=== PATIENT | male | born 1990 | race Caucasian/White ===

== ENCOUNTER 2020-10-01 18:51 | Emergency (ER) | payer OTHER, SELFPAY ==
[2020-10-01 19:01] VITALS: BP 158/110; RESP 14; TEMP 36.8; O2SAT 98; BMI 27.6
--- NOTE | 2020-10-01 19:32 | ECG_ITS ---
Test Reason : CHEST PAIN Blood Pressure : / mmHG Vent. Rate : 089 BPM Atrial Rate : 089 BPM P-R Int : 156 ms QRS Dur : 092 ms QT Int : 358 ms P-R-T Axes : 030 050 033 degrees QTc Int : 435 ms Normal sinus rhythm Normal ECG No previous ECGs available Referred By: Generic ED Physician Electronically Signed By:CHAO RUIZ MD
[2020-10-01 19:41] VITALS: BP 137/92; PULSE 93; RESP 18
[2020-10-01 19:48] LABS: MANUAL DIFF FLAG NO
--- NOTE | 2020-10-01 19:48 | PC.NURSE ---
[facility] DOES NOT WANT TO STAY AND TAKE UP A BED FROM SOMEONE WHO REALLY NEEDS IT . EXPLAINED TO PATIENT THAT HE WARRANTS A BED GIVEN THE EXPOSURE AND CONTINUED BREATHING ISSUES WITH CHEST PAIN. I DON'T WANT TO GET THESE GUYS IN TROUBLE THEY ARE FAMILY . EXPLAINED HIS HEALTH IS MORE IMPORTANT. IV REMOVED PRIOR TO LEAVING. WALKED OUT OF ER WITH STEADY GAIT. ORIENTED X3. BREATHING EVEN, NON-LABROED. SKIN PINK, WARM, DRY.
[2020-10-01 19:51] LABS: Basophils Absolute Auto 0.1 X10*3/uL (0.0-0.2); Basophils Percent Auto 1.3 % (0-2); Eosinophils Absolute Auto 0.2 X10*3/uL (0.0-0.4); Eosinophils Percent Auto 2.4 % (0-4); Hematocrit 42.7 % (42-52); Hemoglobin 14.6 g/dl (14.0-18.0); Imm Gran Abs Auto 0.05 X10*3/uL (0.00-0.03); Imm Gran Pct Auto 0.7 % (0.0-0.4); Lymphocytes Absolute Auto 1.8 X10*3/uL (1.2-4.9); Lymphocytes Percent Auto 27.3 % (20-40); Mean Corpuscular HGB Conc 34.2 g/dl (31.0-36.0); Mean Corpuscular Hemoglobin 31.4 pg (27.0-33.0); Mean Corpuscular Volume 91.8 fL (80-98); Mean Platelet Volume 8.5 fL (9.4-12.4); Monocytes Absolute Auto 0.3 X10*3/uL (0.1-1.2); Monocytes Percent Auto 4.3 % (2-11); Neutrophils Absolute Auto 4.3 X10*3/uL (2.0-8.3); Platelet Count 435 X10*3/uL (160-400); Red Blood Count 4.65 X10*6/uL (4.60-5.80); Red Cell Distribution Width 12.4 % (11.0-16.0); White Blood Count 6.7 X10*3/uL (4.8-10.8)
[2020-10-01 20:08] LABS: Anion Gap 15 (12-20); Blood Urea Nitrogen 6 mg/dL (9-16); Calcium 9.4 mg/dL (8.4-10.2); Carbon Dioxide 26 mmol/L (22-29); Chloride 108 mmol/L (96-108); Creatinine Clr Calc Pharmacy 145.8; Estimated Glomerular Filt Rate > 60; Glucose Random 97 mg/dL (60-115); Potassium 4.3 mmol/L (3.3-5.1); Sodium 145 mmol/L (135-145)
[2020-10-01 20:15] LABS: Troponin-I High Sensitivity < 3.5 ng/L (<3.5-35.0)
== END 2020-10-01 19:53 | disposition left against medical advice (07) ==
PROVIDERS: Emergency Provider Emergency Medicine
DX: R07.9 Chest pain, unspecified (principal); T65.891A Toxic effect of other specified substances, accidental (unintentional), initial encounter; Y93.9 Activity, unspecified; Y92.69 Other specified industrial and construction area as the place of occurrence of the external cause; Y99.0 Civilian activity done for income or pay
CPT/HCPCS: 36415; 80048; 84484; 85025; 93005; 99283

== ENCOUNTER 2020-12-23 21:15 | Emergency (ER) | payer OTHER, SELFPAY ==
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
[2020-12-23 21:20] VITALS: BP 134/80; BP 136/84; PULSE 80; PULSE 84; RESP 16; TEMP 37; O2SAT 98; BMI 28.1
--- NOTE | 2020-12-23 22:24 | PC.NURSE ---
pt awake and alert, on phone with c-collar on bed. pt removed his own c-collar because it was bothering him. pt moving all extremities and lifting head off bed. pt educated on the importance of remaining still and leaving collar in place until a fracture is ruled out. pt allowed this rn to place collar back on neck. rosalinda de dios.
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
== END 2020-12-23 23:49 | disposition home or self-care (01) ==
PROVIDERS: Emergency Provider Student in an Organized Health Care Education/Training Program
DX: S99.912A Unspecified injury of left ankle, initial encounter (principal); M25.572 Pain in left ankle and joints of left foot; X58.XXXA Exposure to other specified factors, initial encounter; Y93.55 Activity, bike riding; Y92.410 Unspecified street and highway as the place of occurrence of the external cause; Y99.8 Other external cause status; Z79.899 Other long term (current) drug therapy
CPT/HCPCS: 73610; 99283

== ENCOUNTER 2021-01-15 16:01 | Outpatient (REF) | payer OTHER, SELFPAY ==
[2021-01-15 17:49] LABS: MANUAL DIFF FLAG NO
[2021-01-15 18:06] LABS: Basophils Absolute Auto 0.1 X10*3/uL (0.0-0.2); Basophils Percent Auto 0.9 % (0-2); Eosinophils Absolute Auto 0.3 X10*3/uL (0.0-0.4); Eosinophils Percent Auto 4.1 % (0-4); Hematocrit 43.3 % (42-52); Hemoglobin 14.5 g/dl (14.0-18.0); Imm Gran Abs Auto 0.01 X10*3/uL (0.00-0.03); Imm Gran Pct Auto 0.1 % (0.0-0.4); Lymphocytes Absolute Auto 2.3 X10*3/uL (1.2-4.9); Lymphocytes Percent Auto 34.1 % (20-40); Mean Corpuscular HGB Conc 33.5 g/dl (31.0-36.0); Mean Corpuscular Hemoglobin 31.5 pg (27.0-33.0); Mean Corpuscular Volume 94.1 fL (80-98); Mean Platelet Volume 9.2 fL (9.4-12.4); Monocytes Percent Auto 14.1 % (2-11); Neutrophils Absolute Auto 3.2 X10*3/uL (2.0-8.3); Neutrophils Percent Auto 46.7 % (45-73); Platelet Count 418 X10*3/uL (160-400); Red Cell Distribution Width 14.5 % (11.0-16.0); White Blood Count 6.8 X10*3/uL (4.8-10.8)
[2021-01-15 18:16] LABS: Alanine Aminotransferase 78 U/L (0-40); Albumin Level 4.5 g/dL (3.5-5.0); Alkaline Phosphatase 67 U/L (39-117); Anion Gap 17 (12-20); Aspartate Amino Transferase 90 U/L (5-37); Bilirubin Total 0.3 mg/dL (0.0-1.0); Blood Urea Nitrogen 3 mg/dL (9-16); Calcium 9.1 mg/dL (8.4-10.2); Carbon Dioxide 22 mmol/L (22-29); Chloride 107 mmol/L (96-108); Estimated Glomerular Filt Rate > 60; Glucose Random 106 mg/dL (60-115); Lipase 33 U/L (8-78); Sodium 142 mmol/L (135-145); Total Protein 7.6 g/dL (6.5-8.0)
== END 2021-01-15 16:02 | disposition home or self-care (01) ==
LOC: HO.LAB 16:01
PROVIDERS: Visit Provider Physician Assistant Medical
DX: K21.00 Gastro-esophageal reflux disease with esophagitis, without bleeding (principal); K59.1 Functional diarrhea
CPT/HCPCS: 36415; 80053; 83690; 85025

== ENCOUNTER 2021-01-16 11:58 | Outpatient (REF) | payer OTHER, SELFPAY ==
[2021-01-16 14:47] LABS: CDIFF Ag Negative (Negative); CDIFF Internal ctrl Dots and bkg OK (V); CDiff Toxin Negative (Negative)
[2021-01-23 22:56] LABS: Calprotectin, Fecal 21 mcg/g
== END 2021-01-16 11:59 | disposition home or self-care (01) ==
LOC: HO.LNP 11:58
PROVIDERS: Visit Provider Nurse Practitioner Family
DX: K21.00 Gastro-esophageal reflux disease with esophagitis, without bleeding (principal); K59.1 Functional diarrhea
CPT/HCPCS: 83993; 87045; 87046; 87177; 87209; 87324; 87329; 87449

== ENCOUNTER 2021-10-30 07:55 | Emergency (ER) | payer OTHER, SELFPAY ==
[2021-10-30 07:59] VITALS: BP 158/110; PULSE 116; RESP 19; TEMP 36.6; O2SAT 97; BMI 29.9
--- NOTE | 2021-10-30 08:10 | ED.GENADULT ---
HPI - General Adult General Chief complaint: General Medical Stated complaint: Dehydrated/flank pain Time Seen by Provider: 10/30/21 08:07 Source: patient Mode of arrival: ambulatory Limitations: no limitations Related Data Previous Rx's Medication Instructions Recorded naproxen 500 mg tablet 500 mg PO BID PRN #15 tab 12/23/20 Allergies Allergy/AdvReac Type Severity Reaction Status Date / Time No Known Allergies Allergy Verified 12/23/20 22:33 [facility] Past Medical History Medical History No known health problems Physical Exam ED Vital Signs: Vital Signs - 24 hr 10/30/21 07:59 Temperature 98 F Pulse Rate 116 H Respiratory Rate 19 Blood Pressure 158/110 H Pulse Oximetry 97 BMI result Body Mass Index 29.9 Discharge Plan Discharge Prescriptions: No Action naproxen 500 mg tablet 500 mg PO BID PRN (Reason: pain) Qty: 15 0RF
[2021-10-30] MEDS: ondansetron HCL 4 MG/2 ML VIAL IVPUSH (08:24)
[2021-10-30] MEDS: LORazepam 2 MG/ML VIAL 1 MG IVPUSH (08:25)
[2021-10-30] MEDS: 0.9 % Sodium Chloride 1,000 ML 999 ML IVCONT ×2 (08:25→09:35)
[2021-10-30 08:29] VITALS: BP 144/92; PULSE 103; RESP 20
--- NOTE | 2021-10-30 08:30 | ED_ITS ---
HPI - General Adult General Chief complaint: General Medical Stated complaint: Dehydrated/flank pain Time Seen by Provider: 10/30/21 08:07 Source: patient Mode of arrival: ambulatory Limitations: no limitations History of Present Illness HPI narrative: This is a 30 years old patient with history of alcohol abuse presented to the emergency room complaining of vomiting tremors since 3 weeks worse this morning denies any fever chills diarrhea Onset (ago): hour(s) Radiation: non-radiation Severity: moderate Pain Consistency: constant Relieving factors: none Associated symptoms: denies other symptoms Related Data Previous Rx's Medication Instructions Recorded naproxen 500 mg tablet 500 mg PO BID PRN #15 tab 12/23/20 lorazepam 1 mg tablet 1 mg PO BID PRN #10 tab 10/30/21 ondansetron 4 mg disintegrating 4 mg PO Q8H 4 Days #12 tab 10/30/21 tablet potassium chloride 20 mEq 20 meq PO DAILY #7 tab 10/30/21 tablet,extended release(part/cryst) Allergies Allergy/AdvReac Type Severity Reaction Status Date / Time No Known Allergies Allergy Verified 12/23/20 22:33 Review of Systems Constitutional: Constitutional: Reports no additional constitutional complai nts ENT: Reports system reviewed and no additional complaints, except as documented Cardiovascular: Cardiovascular: Reports no additional cardiovascular complaints Respiratory: Respiratory: Reports no additional respiratory complaints, Denies cough and Denies hemoptysis Gastrointestinal: Gastrointestinal: Denies diarrhea PMFSH Past Medical History Medical History No known health problems Social History Social History Alcohol intake: current Alcohol intake frequency: 3 or more drinks per day Alcohol type: hard liquor Patient Tobacco Use Status: Current someday Tobacco user Use of substances other than those prescribed or required for medical reasons: No Advance Directives: No Advance Directives Information Provided: No Physical Exam ED Vital Signs: Vital Signs - 24 hr 10/30/21 07:59 10/30/21 08:29 10/30/21 11:24 Temperature 98 F Pulse Rate 116 H 103 H 81 Respiratory Rate 19 20 18 Blood Pressure 158/110 H 144/92 H 137/87 Pulse Oximetry 97 98 BMI result Body Mass Index 29.9 Const General: cooperative, alert, awake and anxious Nutritional Appearance: average body habitus Orientation/consciousness: patient oriented x3 Limitations: no limitations HENMT Head: Yes normal to inspection General nose exam: Normal external nose present Mouth: Normal oral and palatal mucosa present Neck Neck: Yes normal visual inspection and Yes full ROM Chest Chest palpation & inspection: normal inspection of the chest Resp Effort & Inspection: normal respiratory effort Auscultation: clear to auscultation bilaterally Cardio Jugular venous distension: no JVD Rate: regular rate Rhythm: regular rhythm GI Inspection: Yes normal to inspection Palpation (GI): Soft to palpation, not firm, nontender and no guarding Percussion: Yes normal to percussion General: Yes no CVA tenderness Back/Spine/Pelvis Back: no CVA tenderness Neuro General: patient oriented x3 and gait normal Course Reevaluation(s) Reevaluation #1: I re-evaluated the patient at 10:42 am he is doing much better, he is tolerating p.o. fluids well, he was seen by the care team Alonso he does want to go to detox today he states that he will go on otherwise he isaias loose his job. Alonso reccommended that I prescribed few days of ativan to hold him until , I will give him a 10 tablets of lorazepam to be taken b.i.d. p.r.n. Medical Decision Making Lab Data Result diagrams: 10/30/21 08:30 10/30/21 08:30 Labs: Lab Results 10/30/21 10/30/21 10/30/21 Range/Units 08:30 08:30 08:30 WBC 7.0 (4.8-10.8) X10*3/uL RBC 5.02 (4.60-5.80) X10*6/uL Hgb 16.7 (14.0-18.0) g/dl Hct 45.9 (42.0-52.0) % MCV 91.4 (80.0-98.0) fL MCH 33.3 H (27.0-33.0) pg MCHC 36.4 H (31.0-36.0) g/dl RDW 12.6 (11.0-16.0) % Plt Count 359 (160-400) X10*3/uL MPV 8.9 L (9.4-12.4) fL Immature Gran % (Auto) 0.1 (0.0-0.4) % Neut % (Auto) 60.3 (45-73) % Lymph % (Auto) 26.3 (20-40) % Sweet [place] % (Auto) 11.6 H (2-11) % Eos % (Auto) 0.7 (0-4) % Baso % (Auto) 1.0 (0-2) % Lymph # (Auto) 1.8 (1.2-4.9) X10*3/uL Sweet [place] # (Auto) 0.8 (0.1-1.2) X10*3/uL Eos # (Auto) 0.1 (0.0-0.4) X10*3/uL Baso # (Auto) 0.1 (0.0-0.2) X10*3/uL Abs Immat Gran (auto) 0.01 (0.00-0.03) X10*3/uL Absolute Neuts (auto) 4.2 (2.0-8.3) x10*3/uL Absolute Nucleated RBC 0.000 (0.0-0.012) X10*3/uL Nucleated RBC % (auto) 0.0 (0.0-0.2) /100WBC Sodium 137 (135-145) mmol/L Potassium 3.0 L D (3.3-5.1) mmol/L Chloride 90 L (96-108) mmol/L Carbon Dioxide 27 (22-29) mmol/L Anion Gap 23 H (12-20) BUN 3 L (9-16) mg/dL Creatinine 0.98 (0.5-1.4) mg/dL Estim Creat Clear Calc 124.6 Estimated GFR > 60 Random Glucose 115 (60-115) mg/dL Calcium 11.3 H D (8.4-10.2) mg/dL Magnesium 1.6 (1.6-2.6) mg/dL Total Bilirubin 1.4 H (0.0-1.0) mg/dL AST 357 H (5-37) U/L ALT 167 H (0-40) U/L Alkaline Phosphatase 99 D (39-117) U/L Total Protein 8.1 H (6.5-8.0) g/dL Albumin 4.1 (3.5-5.0) g/dL Ethyl Alcohol 10 mg/dL Discharge Plan Discharge Clinical Impression: Alcohol abuse, Alcohol withdrawal, Hypokalemia Patient Disposition: Home, Self-Care Instructions: Hypokalemia (ED), Alcohol Withdrawal (DC), Alcohol Use Disorder (ED) Additional Instructions: You declined today the detox, you states that you were going to go on , result return if worse Prescriptions: New lorazepam 1 mg tablet 1 mg PO BID PRN (Reason: alcohol withdrawal) Qty: 10 0RF ondansetron 4 mg tablet,disintegrating 4 mg PO Q8H 4 Days Qty: 12 0RF potassium chloride 20 mEq tablet,ER particles/crystals 20 meq PO DAILY Qty: 7 0RF No Action naproxen 500 mg tablet 500 mg PO BID PRN (Reason: pain) Qty: 15 0RF Referrals: Physician,None [Primary Care Provider] - 3 days Interventions: ED Discharge Assessment Last Done: 10/30/21 11:45 Discharge Date/Time: 10/30/21 11:45
[2021-10-30 08:34] LABS: MANUAL DIFF FLAG NO
[2021-10-30 08:35] LABS: Basophils Absolute Auto 0.1 X10*3/uL (0.0-0.2); Eosinophils Absolute Auto 0.1 X10*3/uL (0.0-0.4); Eosinophils Percent Auto 0.7 % (0-4); Hematocrit 45.9 % (42.0-52.0); Hemoglobin 16.7 g/dl (14.0-18.0); Imm Gran Abs Auto 0.01 X10*3/uL (0.00-0.03); Imm Gran Pct Auto 0.1 % (0.0-0.4); Lymphocytes Absolute Auto 1.8 X10*3/uL (1.2-4.9); Lymphocytes Percent Auto 26.3 % (20-40); Mean Corpuscular HGB Conc 36.4 g/dl (31.0-36.0); Mean Corpuscular Hemoglobin 33.3 pg (27.0-33.0); Mean Corpuscular Volume 91.4 fL (80.0-98.0); Mean Platelet Volume 8.9 fL (9.4-12.4); Monocytes Absolute Auto 0.8 X10*3/uL (0.1-1.2); Monocytes Percent Auto 11.6 % (2-11); Neutrophils Absolute Auto 4.2 x10*3/uL (2.0-8.3); Neutrophils Percent Auto 60.3 % (45-73); Platelet Count 359 X10*3/uL (160-400); Red Blood Count 5.02 X10*6/uL (4.60-5.80); Red Cell Distribution Width 12.6 % (11.0-16.0)
[2021-10-30 08:48] LABS: Ethanol 10 mg/dL
[2021-10-30 08:52] LABS: Alanine Aminotransferase 167 U/L (0-40); Albumin Level 4.1 g/dL (3.5-5.0); Alkaline Phosphatase 99 U/L (39-117); Anion Gap 23 (12-20); Aspartate Amino Transferase 357 U/L (5-37); Bilirubin Total 1.4 mg/dL (0.0-1.0); Blood Urea Nitrogen 3 mg/dL (9-16); Calcium 11.3 mg/dL (8.4-10.2); Carbon Dioxide 27 mmol/L (22-29); Chloride 90 mmol/L (96-108); Creatinine Clr Calc Pharmacy 124.6; Estimated Glomerular Filt Rate > 60; Glucose Random 115 mg/dL (60-115); Magnesium 1.6 mg/dL (1.6-2.6); Sodium 137 mmol/L (135-145); Total Protein 8.1 g/dL (6.5-8.0)
[2021-10-30] MEDS: Potassium Chloride Packet 20 MEQ PACKET 40 MEQ PO (09:36)
--- NOTE | 2021-10-30 10:29 | MHC.RECOVSUP ---
Recovery Support note: Patient is a 30 year old Norwegian speaking male who [place] [facility] [place] due to alcohol use and withdrawal. This quality analyst/technical writer met with patient to discuss recovery supports and treatment options. Patient reports he went to [facility] 4 months ago and found it helpful to his recovery. Patient reports when he discharged, he was still homeless and that he started drinking again. Patient reports he lives in a tent in the [facility] and that he cannot sleep well. Patient reports using alcohol to help him sleep. Patient states I'm sick of living like this. Patient reports a desire to maintain sobriety. Patient reports he has an appointment with Misty Jasmine to get a Vivitrol injection. Discussed medications for alcohol use disorder with patient and provided education. Discussed withdrawal with patient. This quality analyst/technical writer offered to secure an ATS bed for patient and patient declined, stating that he needs to talk to his and his boss before going to treatment. Patient accepted information on ATS facilities. Informed patient that alcohol withdrawal is very serious and that it could lead to seizure or if untreated. Reiterated that the recommendation is for him to go to an ATS facility. Discussed IOP with patient and provided information on this level of care. Discussed case with ED provider. This quality analyst/technical writer available in the event that patient changes his mind and would like to go to an ATS facility.
[2021-10-30 11:24] VITALS: BP 137/87; PULSE 81; RESP 18; O2SAT 98
[2021-10-30] MEDS: LORazepam 1 MG TABLET PO (11:37)
== END 2021-10-30 11:45 | disposition home or self-care (01) ==
PROVIDERS: Emergency Provider Emergency Medicine
DX: F10.130 Alcohol abuse with withdrawal, uncomplicated (principal); Y90.0 Blood alcohol level of less than 20 mg/100 ml; E87.6 Hypokalemia; F17.200 Nicotine dependence, unspecified, uncomplicated
CPT/HCPCS: 36415; 80053; 82077; 83735; 85025; 96361; 96374; 96375; 99284; J2060; J2405

== ENCOUNTER 2022-04-24 07:02 | Emergency (ER) | payer OTHER, SELFPAY ==
--- NOTE | ~2022-04-24 | US_ITS ---
EXAMINATION: US ABDOMEN LIMITED CLINICAL INFORMATION: Rule out cholecystitis due to upper abdominal pain. COMPARISON: CT earlier the same day TECHNIQUE: Real-time imaging of the gallbladder. FINDINGS: GALLBLADDER: Normal. The gallbladder is physiologically distended without evidence of stones, sludge, polyps, wall thickening or pericholecystic fluid. COMMON BILE DUCT: Normal in caliber measuring 0.3 cm in diameter. US/US abdomen limited IMPRESSION: Normal gallbladder. No gallstones.
--- NOTE | ~2022-04-24 | CT_ITS ---
EXAMINATION: CT ABDOMEN AND PELVIS WITH CONTRAST CLINICAL INFORMATION: Nausea, vomiting, diarrhea. Right upper quadrant, right lower quadrant abdominal pain. Recent alcohol. COMPARISON: None TECHNIQUE: Multidetector volumetric images were obtained from the superior aspect of the liver through the pubic symphysis following administration 85 mL of Omnipaque 350 intravenous contrast. Sagittal and coronal reformatted images were obtained on the technologist's workstation. Oral contrast: No This CT examination was performed using dose optimization techniques as appropriate, variously including the following: *Automated exposure control *Adjustment of mA and/or kV according to patient size (this includes techniques or standardized protocols for targeted exams where dose is matched to indication/reason for exam; i.e. extremities or head) *Use of iterative reconstruction technique DLP: 456 mGy-cm FINDINGS: LUNG BASES: The visualized lung bases are unremarkable. LIVER, GALLBLADDER, AND BILIARY TREE: No focal liver lesion. No intrahepatic or extrahepatic biliary duct dilatation. Faint densities in the gallbladder neck, could represent gallstones. No obvious pericholecystic inflammatory changes seen. PANCREAS: Unremarkable. No acute inflammatory changes seen. SPLEEN: Unremarkable. Small splenule. ADRENAL GLANDS: Unremarkable. KIDNEYS AND URETERS: Subcentimeter right renal lesions, too small to characterize. No renal calculi. No ureteral calculi. No hydronephrosis. No significant perinephric stranding. BLADDER: Underdistended, grossly unremarkable. GASTROINTESTINAL TRACT: Stomach is partially distended. No dilated small bowel loops. Small volume stool in the large colon. The large colon appears unremarkable without evidence of inflammatory changes. Normal appendix. No free fluid. No free air.. ABDOMINAL WALL: No significant hernia is appreciated. LYMPH NODES: No adenopathy seen. VASCULAR: Normal caliber aorta. Main portal vein is enhancing. PELVIC VISCERA: Unremarkable. OSSEOUS STRUCTURES: No acute or suspicious osseous abnormality. CT/CT abdomen pelvis w IV con IMPRESSION: -Question small gallstones. No obvious pericholecystic inflammatory changes seen. Further evaluation ultrasound as clinically warranted. -No acute findings otherwise identified in the abdomen or pelvis. Fleischner guidelines were followed.
[2022-04-24 07:37] VITALS: BP 141/93; PULSE 100; RESP 22; TEMP 36.8; O2SAT 99; BMI 25.8
[2022-04-24] MEDS: Ondansetron ODT 4 MG TAB.RAPDIS TRANSLINGU (07:44)
--- NOTE | 2022-04-24 09:09 | ECG_ITS ---
Test Reason : PALPITATIONS Blood Pressure : / mmHG Vent. Rate : 080 BPM Atrial Rate : 080 BPM P-R Int : 148 ms QRS Dur : 082 ms QT Int : 376 ms P-R-T Axes : 079 069 062 degrees QTc Int : 433 ms Normal sinus rhythm with sinus arrhythmia Normal ECG When compared with ECG of 01-OCT-2020 19:05, No significant change was found Referred By: Francesca Pacheco Electronically Signed By:EMILY MARCUS
[2022-04-24 09:15] LABS: MANUAL DIFF FLAG NO
[2022-04-24 09:16] VITALS: BP 129/83; PULSE 76; RESP 14; O2SAT 98
[2022-04-24 09:16] LABS: Basophils Absolute Auto 0.1 X10*3/uL (0.0-0.2); Basophils Percent Auto 0.7 % (0-2); Eosinophils Percent Auto 0.2 % (0-4); Hematocrit 46.7 % (42.0-52.0); Hemoglobin 16.2 g/dl (14.0-18.0); Imm Gran Abs Auto 0.03 X10*3/uL (0.00-0.03); Imm Gran Pct Auto 0.3 % (0.0-0.4); Lymphocytes Absolute Auto 1.8 X10*3/uL (1.2-4.9); Lymphocytes Percent Auto 16.9 % (20-40); Mean Corpuscular HGB Conc 34.7 g/dl (31.0-36.0); Mean Corpuscular Hemoglobin 29.9 pg (27.0-33.0); Mean Corpuscular Volume 86.2 fL (80.0-98.0); Mean Platelet Volume 8.6 fL (9.4-12.4); Monocytes Absolute Auto 0.8 X10*3/uL (0.1-1.2); Monocytes Percent Auto 7.7 % (2-11); Neutrophils Absolute Auto 8.1 x10*3/uL (2.0-8.3); Neutrophils Percent Auto 74.2 % (45-73); Platelet Count 544 X10*3/uL (160-400); Red Blood Count 5.42 X10*6/uL (4.60-5.80); Red Cell Distribution Width 13.3 % (11.0-16.0); White Blood Count 10.9 X10*3/uL (4.8-10.8)
[2022-04-24] MEDS: 0.9 % Sodium Chloride 1,000 ML 999 ML IVCONT (09:31)
[2022-04-24] MEDS: LORazepam 1 MG TABLET 2 MG PO (09:31)
--- NOTE | 2022-04-24 09:31 | ED.ALCOHOL ---
HPI - Alcohol General Chief Complaint: ETOH/Substance Use Stated Complaint: haven't eat or drink in x5 days. heavy chest Time Seen by Provider: 04/24/22 09:03 Source: patient Mode of arrival: ambulatory Limitations: no limitations History of Present Illness HPI narrative: 31-year-old male with history of alcohol abuse presenting with complaints of nausea, vomiting, abdominal pain, chest ?burning after bingeing alcohol for the past 6 days. Patient reports he has been sober since October however relapsed 6 days ago. States he has been under lot of stress with work and home life, and states that is partly why started drinking again. Reports drinking at least 16 tall beers per day, and blacking out every day. States he does not remember eating anything x 6 days. Also reports one instance where he he woke up in the [place], and does not know how he got there. Denies any injuries that he knows of. States his last drink was around 20:00 last night, and he is have muscle cramping, nausea, vomiting, chest heaviness/burning, and occasional shortness of breath since. Reports small amount of blood in his vomit this morning, stating he thinks he strained something from vomiting so hard. Denies any suicidal or homicidal ideations. Reports occasional marijuana use, no other drug use. Patient states ?I didn't know what else to do, I didn't want to go back to the [employer] store . complaint: alcohol dependence Last drink: Hours (ago) Chronic alcohol use: Yes Previous visits for alcohol intoxication: Yes Recent trauma: No Associated symptoms: nausea, vomiting, tremors and abdominal pain Treatments prior to arrival: none Related Data Previous Rx's Medication Instructions Recorded naproxen 500 mg tablet 500 mg PO BID PRN pain #15 tabs 12/23/20 lorazepam 1 mg tablet 1 mg PO BID PRN alcohol withdrawal 10/30/21 #10 tabs ondansetron 4 mg disintegrating 4 mg PO Q8H 4 days #12 tabs 10/30/21 tablet potassium chloride 20 mEq 20 meq PO DAILY #7 tabs 10/30/21 tablet,extended release(part/cryst) lorazepam 0.5 mg tablet (Ativan) 0.5 mg PO TID PRN alcohol 04/24/22 withdrawal #10 tabs ondansetron 4 mg disintegrating 4 mg PO Q8H PRN nausea #14 tabs 04/24/22 tablet Allergies Allergy/AdvReac Type Severity Reaction Status Date / Time No Known Allergies Allergy Verified 12/23/20 22:33 Review of Systems Review of Systems: Constitutional : No Weight loss, No Fever, No Chills, No Night Sweats ENT/Mouth : No Hearing loss, No Ear Pain, No Nasal Congestion, No Sinus Pain, No Hoarseness, No sore throat, No Rhinorrhea, No Swallowing Difficulty Eyes: No Eye Pain, No Swelling, No Redness, No Foreign Body, No Discharge, No Vision Changes Cardiovascular : + Chest Pain, + SOB, No Dyspnea on Exertion, No Orthopnea, No Edema, No Palpitations Respiratory : No Cough, No Sputum, No Wheezing, No Smoke Exposure, No Dyspnea Gastrointestinal : + Nausea, + Vomiting, + Diarrhea, No Constipation, + abdominal Pain, + hematemesis, No Hematochezia, No Melena Genitourinary : no irregular bleeding, No Dysuria, No Urinary Frequency, No Hematuria, No Urinary Incontinence, No Urgency, No Flank Pain, No Urinary Flow Changes, No Hesitancy Musculoskeletal : + muscle cramps, No joint pain, No Joint Swelling Skin : No Skin Lesions, No rash Neuro : No Weakness, No Numbness, No Paresthesias, No Loss of Consciousness, + Dizziness, + Headache Psych : + Anxiety/Panic, No Depression, No SI/HI/AH/VH, No Social Issues, Heme/Lymph: No Bruising, No Bleeding,No Lymphadenopathy Endocrine : No Polyuria, No Polydipsia, No Temperature Intolerance Yes all other systems are reviewed and are negative [facility] Past Medical History Attestation statement: The following information was validated with the patient. Source: old records reviewed and nursing notes reviewed Medical History No known health problems Social History Social History Alcohol intake: current Alcohol intake frequency: 3 or more drinks per day Alcohol type: hard liquor Patient Tobacco Use Status: Current someday Tobacco user Advance Directives: No Advance Directives Information Provided: No Physical Exam ED Vital Signs: Vital Signs - 24 hr 04/24/22 07:37 04/24/22 09:16 04/24/22 12:11 Temperature 98.3 F Pulse Rate 100 76 109 H Respiratory Rate 22 H 14 18 Blood Pressure 141/93 H 129/83 123/82 Pulse Oximetry 99 98 100 Oxygen Delivery Method Room Air Room Air Room Air BMI result Body Mass Index 25.8 Vital signs reviewed blood pressure 141/93. Pulse 100. Respirations 22. Temperature 98.3 degrees. Oxygen saturation 99% on room air. Appearance: Alert. Oriented X3. No acute distress. Head: Normal external exam. Normocephalic. Eyes: PERRLA. EOMI. Conjunctiva and sclera normal. Eyelids normal. ENT: Pharynx normal. Uvula midline. Moist mucous membranes. No trismus noted. No drooling noted. No muffled voice noted. Neck: Normal inspection. Neck supple. FROM. No adenopathy. No meningeal signs. CVS: Tachycardic, rhythm. Heart sound normal. No murmurs noted. Pulses normal throughout. Respiratory: No respiratory distress. Painless inspiration. Breath sounds normal. No wheezes/rales/rhonchi noted. Chest nontender. No accessory muscle usage noted or decreased air movement noted. Abdomen: Soft and nondistended. Tender to palpation in RUQ and RLQ with guarding. No rigidity. Bowel sounds normal in all 4 quadrants. No distention noted. No organomegaly noted. No visible injury noted. No rebound tenderness. Negative Rovsing sign. Negative obturator's sign. Negative psoas sign. Negative Smyth sign. Back: No CVA tenderness. Full range of motion noted. Skin: Skin warm and dry. Normal skin color. Normal skin turgor. No rashes/lesions/lacerations noted. Extremities: Tremulous, Extremities exhibit normal range of motion. Extremities nontender. Neuro: Oriented X 3. No motor deficit. No sensory deficit. Reflexes normal. Normal steady gait. CN's II-XII intact bilaterally? Course Course Course Narrative: 9:30am 31-year-old male with history of alcohol abuse presenting with complaints of nausea, vomiting, abdominal pain, chest ?burning after bingeing alcohol for the past 6 days. On exam, tachycardic rate, VSS, patient alert and oriented in no acute distress, tremulous, abdomen soft and non distended however tender to palpation in RUQ and RLQ. Patient tearful, cooperative with exam. Will reassess after CT abdomen/pelvis for rule out pancreatitis versus cholecystitis Labs remarkable for Mag 1.4, WBC 10.9, platelet count 544, BUN 6, calcium 10.5, total CK 239. LFTs within normal limits. Ethyl alcohol < 10 CIWA score 18 EKG with normal sinus rhythm 1 time dose of 2 g magnesium IV administered Reevaluation(s) Reevaluation #1: CT abdomen pelvis w IV con IMPRESSION: -Question small gallstones. No obvious pericholecystic inflammatory changes seen. Further evaluation ultrasound as clinically warranted. ?-No acute findings otherwise identified in the abdomen or pelvis. Abd US ordered to assess for pancreatitis vs cholychestitis Time: 11:41 Reevaluation #2: US abdomen limited IMPRESSION: Normal gallbladder. No gallstones. Patient feeling better after fluids and Zofran. Patient does have established recovery treatment and a prescription for naltrexone. Is not interested in any inpatient rehabilitation at this time. Patient stable for discharge at this time. Time: 12:45 MDM - Alcohol Medical Records Attestation: I reviewed the patient's medical records. Lab Data Attestation: I reviewed the patient's lab results. Result diagrams: 04/24/22 09:11 04/24/22 09:11 Labs: Lab Results 04/24/22 04/24/22 04/24/22 Range/Units 09:11 09:11 09:11 WBC 10.9 H (4.8-10.8) X10*3/uL RBC 5.42 (4.60-5.80) X10*6/uL Hgb 16.2 (14.0-18.0) g/dl Hct 46.7 (42.0-52.0) % MCV 86.2 (80.0-98.0) fL MCH 29.9 (27.0-33.0) pg MCHC 34.7 (31.0-36.0) g/dl RDW 13.3 (11.0-16.0) % Plt Count 544 H D (160-400) X10*3/uL MPV 8.6 L (9.4-12.4) fL Immature Gran % (Auto) 0.3 (0.0-0.4) % Neut % (Auto) 74.2 H (45-73) % Lymph % (Auto) 16.9 L (20-40) % [place] % (Auto) 7.7 (2-11) % Eos % (Auto) 0.2 (0-4) % Baso % (Auto) 0.7 (0-2) % Lymph # (Auto) 1.8 (1.2-4.9) X10*3/uL [place] # (Auto) 0.8 (0.1-1.2) X10*3/uL Eos # (Auto) 0.0 (0.0-0.4) X10*3/uL Baso # (Auto) 0.1 (0.0-0.2) X10*3/uL Abs Immat Gran (auto) 0.03 (0.00-0.03) X10*3/uL Absolute Neuts (auto) 8.1 (2.0-8.3) x10*3/uL Absolute Nucleated RBC 0.000 (0.0-0.012) X10*3/uL Nucleated RBC % (auto) 0.0 (0.0-0.2) /100WBC Sodium 139 (135-145) mmol/L Potassium 3.6 (3.3-5.1) mmol/L Chloride 97 (96-108) mmol/L Carbon Dioxide 26 (22-29) mmol/L Anion Gap 20 (12-20) BUN 6 L D (9-16) mg/dL Creatinine 0.95 (0.5-1.4) mg/dL Estim Creat Clear Calc 110.0 Estimated GFR > 60 Random Glucose 115 (60-115) mg/dL Calcium 10.5 H D (8.4-10.2) mg/dL Magnesium 1.4 L* (1.6-2.6) mg/dL Total Bilirubin 0.8 (0.0-1.0) mg/dL AST 26 D (5-37) U/L ALT 20 (0-40) U/L Alkaline Phosphatase 78 D (39-117) U/L Lactate Dehydrogenase 199 (118-273) U/L Total Creatine Kinase 239 H (38-174) U/L Troponin I High Sens < 3.5 (<3.5-35.0) ng/L Total Protein 8.2 H (6.5-8.0) g/dL Albumin 4.6 (3.5-5.0) g/dL Amylase 43 (28-100) U/L Lipase 11 (8-78) U/L Urine Color Urine Appearance Urine pH (5.0-9.0) Ur Specific Anchor (1.005-1.025) Urine Protein (Neg-Trace) mg/dL Urine Glucose (UA) (Negative) mg/dL Urine Ketones (Negative) mg/dL Urine Blood (Negative) Urine Nitrite (Negative) Ur Leukocyte Esterase (Negative) Urine RBC (0-2) /HPF Urine WBC (0-5) /HPF Ur Squamous Epith Cells (0-2) /HPF Urine Bacteria (None Seen) Hyaline Casts (0-2) /LPF Urine Opiates Screen (Not Detect) Urine Fentanyl Screen (Not Detect) Ur Barbiturates Screen (Not Detect) Ur Phencyclidine Scrn (Not Detect) Ur Amphetamines Screen (Not Detect) U Benzodiazepines Scrn (Not Detect) Urine Cocaine Screen (Not Detect) U Marijuana (THC) Screen (Not Detect) Ethyl Alcohol < 10 mg/dL COVID-19 (ELIE) (Negative) COVID-19 Clin Com 04/24/22 04/24/22 04/24/22 Range/Units 10:00 10:01 10:53 WBC (4.8-10.8) X10*3/uL RBC (4.60-5.80) X10*6/uL Hgb (14.0-18.0) g/dl Hct (42.0-52.0) % MCV (80.0-98.0) fL MCH (27.0-33.0) pg MCHC (31.0-36.0) g/dl RDW (11.0-16.0) % Plt Count (160-400) X10*3/uL MPV (9.4-12.4) fL Immature Gran % (Auto) (0.0-0.4) % Neut % (Auto) (45-73) % Lymph % (Auto) (20-40) % [place] % (Auto) (2-11) % Eos % (Auto) (0-4) % Baso % (Auto) (0-2) % Lymph # (Auto) (1.2-4.9) X10*3/uL [place] # (Auto) (0.1-1.2) X10*3/uL Eos # (Auto) (0.0-0.4) X10*3/uL Baso # (Auto) (0.0-0.2) X10*3/uL Abs Immat Gran (auto) (0.00-0.03) X10*3/uL Absolute Neuts (auto) (2.0-8.3) x10*3/uL Absolute Nucleated RBC (0.0-0.012) X10*3/uL Nucleated RBC % (auto) (0.0-0.2) /100WBC Sodium (135-145) mmol/L Potassium (3.3-5.1) mmol/L Chloride (96-108) mmol/L Carbon Dioxide (22-29) mmol/L Anion Gap (12-20) BUN (9-16) mg/dL Creatinine (0.5-1.4) mg/dL Estim Creat Clear Calc Estimated GFR Random Glucose (60-115) mg/dL Calcium (8.4-10.2) mg/dL Magnesium (1.6-2.6) mg/dL Total Bilirubin (0.0-1.0) mg/dL AST (5-37) U/L ALT (0-40) U/L Alkaline Phosphatase (39-117) U/L Lactate Dehydrogenase (118-273) U/L Total Creatine Kinase (38-174) U/L Troponin I High Sens (<3.5-35.0) ng/L Total Protein (6.5-8.0) g/dL Albumin (3.5-5.0) g/dL Amylase (28-100) U/L Lipase (8-78) U/L Urine Color Yellow Urine Appearance Clear Urine pH >= 9.0 (5.0-9.0) Ur Specific Anchor 1.020 (1.005-1.025) Urine Protein 30 (1+) H (Neg-Trace) mg/dL Urine Glucose (UA) Negative (Negative) mg/dL Urine Ketones Trace (Negative) mg/dL Urine Blood Negative (Negative) Urine Nitrite Negative (Negative) Ur Leukocyte Esterase Trace H (Negative) Urine RBC 0-2 (0-2) /HPF Urine WBC 0-5 (0-5) /HPF Ur Squamous Epith Cells 0-2 (0-2) /HPF Urine Bacteria None Seen (None Seen) Hyaline Casts 0-2 (0-2) /LPF Urine Opiates Screen Not Detected (Not Detect) Urine Fentanyl Screen Not Detected (Not Detect) Ur Barbiturates Screen Not Detected (Not Detect) Ur Phencyclidine Scrn Not Detected (Not Detect) Ur Amphetamines Screen Not Detected (Not Detect) U Benzodiazepines Scrn Not Detected (Not Detect) Urine Cocaine Screen Not Detected (Not Detect) U Marijuana (THC) Screen POSITIVE H (Not Detect) Ethyl Alcohol mg/dL COVID-19 (ELIE) Negative (Negative) COVID-19 Clin Com See Note Imaging Data CT scan abdomen pelvis with IV contrast: Attestation: I personally reviewed and interpreted this imaging study as follows: Radiologist's impression: FINDINGS: LUNG BASES: The visualized lung bases are unremarkable.? LIVER, GALLBLADDER, AND BILIARY TREE: No focal liver lesion. No intrahepatic or extrahepatic biliary duct dilatation. Faint densities in the gallbladder neck, could represent gallstones. No obvious pericholecystic inflammatory changes seen.? PANCREAS: Unremarkable. No acute inflammatory changes seen. SPLEEN: Unremarkable. Small splenule. ADRENAL GLANDS: Unremarkable.? KIDNEYS AND URETERS: Subcentimeter right renal lesions, too small to characterize. No renal calculi. No ureteral calculi. No hydronephrosis. No significant perinephric stranding.? BLADDER: Underdistended, grossly unremarkable.? GASTROINTESTINAL TRACT: Stomach is partially distended. No dilated small bowel loops. Small volume stool in the large colon. The large colon appears unremarkable without evidence of inflammatory changes. Normal appendix. No free fluid. No free air..? ABDOMINAL WALL: No significant hernia is appreciated.? LYMPH NODES: No adenopathy seen. VASCULAR: Normal caliber aorta. Main portal vein is enhancing. PELVIC VISCERA: Unremarkable.? OSSEOUS STRUCTURES: No acute or suspicious osseous abnormality.? CT/CT abdomen pelvis w IV con IMPRESSION: -Question small gallstones. No obvious pericholecystic inflammatory changes seen. Further evaluation ultrasound as clinically warranted. ? -No acute findings otherwise identified in the abdomen or pelvis. ? Fleischner guidelines were followed. Abdominal ultrasound: Attestation: I personally reviewed and interpreted this imaging study as follows: Radiologist's impression: FINDINGS: GALLBLADDER: Normal. The gallbladder is physiologically distended without evidence of stones, sludge, polyps, wall thickening or pericholecystic fluid. COMMON BILE DUCT: Normal in caliber measuring 0.3 cm in diameter. US/US abdomen limited IMPRESSION: Normal gallbladder. No gallstones. ECG Data ECG #1: Attestation: I personally reviewed and interpreted this ECG as follows: ECG interpretation date: 04/24/22 ECG interpretation time: 09:16 Prior ECG tracings: available for review Interpretation: Normal sinus rhythm Ventricular rate 80 bpm W[place] interval 148 ms No changes in comparison with previous ECG Discharge Plan Discharge Clinical Impression: Alcohol dependence, Nausea & vomiting, Low blood magnesium, Gallstones Patient Disposition: Home, Self-Care Instructions: Abuse of Alcohol (ED), Acute Nausea and Vomiting (ED), Alcohol Use Disorder (ED) Prescriptions: New ondansetron 4 mg tablet,disintegrating 4 mg PO Q8H PRN (Reason: nausea) Qty: 14 0RF lorazepam [Ativan] 0.5 mg tablet 0.5 mg PO TID PRN (Reason: alcohol withdrawal) Qty: 10 0RF No Action naproxen 500 mg tablet 500 mg PO BID PRN (Reason: pain) Qty: 15 0RF lorazepam 1 mg tablet 1 mg PO BID PRN (Reason: alcohol withdrawal) Qty: 10 0RF ondansetron 4 mg tablet,disintegrating 4 mg PO Q8H 4 Days Qty: 12 0RF potassium chloride 20 mEq tablet,ER particles/crystals 20 meq PO DAILY Qty: 7 0RF Referrals: Wali Long, [facility] [Primary Care Provider] - 2 days Stand Alone Forms: Work/School Release
[2022-04-24 09:41] LABS: Alanine Aminotransferase 20 U/L (0-40); Albumin Level 4.6 g/dL (3.5-5.0); Alkaline Phosphatase 78 U/L (39-117); Anion Gap 20 (12-20); Aspartate Amino Transferase 26 U/L (5-37); Bilirubin Total 0.8 mg/dL (0.0-1.0); Blood Urea Nitrogen 6 mg/dL (9-16); Calcium 10.5 mg/dL (8.4-10.2); Carbon Dioxide 26 mmol/L (22-29); Chloride 97 mmol/L (96-108); Estimated Glomerular Filt Rate > 60; Ethanol < 10 mg/dL; Glucose Random 115 mg/dL (60-115); Potassium 3.6 mmol/L (3.3-5.1); Sodium 139 mmol/L (135-145); Total Protein 8.2 g/dL (6.5-8.0)
[2022-04-24 09:58] LABS: Amylase 43 U/L (28-100); Lactate Dehydrogenase 199 U/L (118-273); Lipase 11 U/L (8-78); Magnesium 1.4 mg/dL (1.6-2.6)
--- NOTE | 2022-04-24 09:59 | MHC.RECOVSUP ---
Recovery Support note: Patient is a 31 year old Greenlandic speaking male who presented to [facility] ED due to several days of binge drinking. Patient reports he had been sober since October however started drinking heavily on Monday (5 days ago). Patient reports numerous life stressors and lack of support. Patient reports he is on probation and gets alcohol testing and naltrexone through [employer] [facility]. He was previously going every week however it was recently changed to every other week and he thought he could have a drink to cope with stress. Patient reports 1 drink turned into 20. Discussed healthy coping skills, outpatient counseling, medications for alcohol use disorder, support groups and ATS with patient. Patient has been to [facility] and found it helpful however is not interested in ATS at this time due to family and work obligations. Patient reports AA was helpful however he did not relate with the adventist component. Patient is interested in doing counseling on his phone and plans to pursue this. Information for Recovery Team and [facility] given to patient. Discussed case with ED provider.
[2022-04-24] MEDS: iohexoL 350 MG/ML 75 ML INFUS..BTL 85 ML IV (10:11)
[2022-04-24 10:12] LABS: Appearance Urine Clear; Color Urine Yellow; Glucose Urine UA Negative (Negative); Leukocyte Esterase Urine Trace (Negative); Nitrite Urine Negative (Negative); PH >= 9.0 (5.0-9.0); UMIC TRIGGER UACC YES; Urine Blood Negative (Negative); Urine Ketones Trace mg/dL (Negative); Urine Protein 30 (1+) mg/dL (Neg-Trace)
[2022-04-24 10:14] LABS: Bacteria Urine None Seen (None Seen); Hyaline Casts Urine 0-2 /LPF (0-2); RBC Urine 0-2 /HPF (0-2); Squamous Epithelial Cell Urine 0-2 /HPF (0-2); WBC Urine 0-5 /HPF (0-5)
[2022-04-24] MEDS: Magnesium Sulfate/H2O 2 GM/50 ML PIGGYBACK IV (10:20)
[2022-04-24 10:25] LABS: Amphetamine Screen Urine Not Detected (Not Detect); Barbiturates, Urine Not Detected (Not Detect); Benzodiazepines Screen Urine Not Detected (Not Detect); Cannabinoid Screen Urine POSITIVE (Not Detect); Cocaine Screen Urine Not Detected (Not Detect); Fentanyl, urine Not Detected (Not Detect); Opiate Screen Urine Not Detected (Not Detect); Phencyclidine Screen Urine Not Detected (Not Detect)
[2022-04-24 11:17] LABS: Troponin-I High Sensitivity < 3.5 ng/L (<3.5-35.0)
[2022-04-24 11:39] LABS: COVID-19 Test Negative (Negative)
[2022-04-24 12:11] VITALS: BP 123/82; PULSE 109; RESP 18; O2SAT 100
== END 2022-04-24 14:03 | disposition home or self-care (01) ==
PROVIDERS: Physician Assistant Medical; Emergency Provider Emergency Medicine; PCP Nurse Practitioner Family
DX: K80.80 Other cholelithiasis without obstruction (principal); R00.2 Palpitations; F10.229 Alcohol dependence with intoxication, unspecified; Y90.0 Blood alcohol level of less than 20 mg/100 ml; R11.2 Nausea with vomiting, unspecified; R10.9 Unspecified abdominal pain; F17.210 Nicotine dependence, cigarettes, uncomplicated; Z20.822 Contact with and (suspected) exposure to COVID-19; Z71.6 Tobacco abuse counseling; Z79.899 Other long term (current) drug therapy
CPT/HCPCS: 74177; 76705; 80053; 80307; 81001; 82077; 82150; 82550; 83615; 83690; 83735; 84484; 85025; 87635; 93005; 99285; J3475; Q9967

== ENCOUNTER 2022-06-13 23:37 | Emergency (ER) | payer SELFPAY ==
[2022-06-13 23:39] VITALS: BP 129/84; PULSE 144; RESP 20; TEMP 36.6; O2SAT 100; BMI 25.8
--- NOTE | 2022-06-13 23:47 | ECG_ITS ---
Test Reason : ETOH Blood Pressure : / mmHG Vent. Rate : 105 BPM Atrial Rate : 105 BPM P-R Int : 138 ms QRS Dur : 080 ms QT Int : 348 ms P-R-T Axes : 064 067 066 degrees QTc Int : 459 ms Sinus tachycardia Otherwise normal ECG When compared with ECG of 24-APR-2022 09:16, Heart rate has increased Referred By: Francisca Salazar Electronically Signed By:SUSAN ROMAN MD
[2022-06-14 00:02] VITALS: BP 145/95; PULSE 110; RESP 15; TEMP 37.2; O2SAT 98
[2022-06-14 00:21] LABS: MANUAL DIFF FLAG NO
[2022-06-14] MEDS: 0.9 % Sodium Chloride 2,000 ML 999 ML IV (00:22)
[2022-06-14 00:25] LABS: Basophils Absolute Auto 0.1 X10*3/uL (0.0-0.2); Basophils Percent Auto 1.1 % (0-2); Eosinophils Absolute Auto 0.1 X10*3/uL (0.0-0.4); Eosinophils Percent Auto 0.6 % (0-4); Hematocrit 47.6 % (42.0-52.0); Hemoglobin 16.4 g/dl (14.0-18.0); Imm Gran Abs Auto 0.02 X10*3/uL (0.00-0.03); Imm Gran Pct Auto 0.2 % (0.0-0.4); Lymphocytes Percent Auto 24.9 % (20-40); Mean Corpuscular HGB Conc 34.5 g/dl (31.0-36.0); Mean Corpuscular Hemoglobin 30.4 pg (27.0-33.0); Mean Corpuscular Volume 88.3 fL (80.0-98.0); Mean Platelet Volume 8.6 fL (9.4-12.4); Neutrophils Percent Auto 61.2 % (45-73); Platelet Count 458 X10*3/uL (160-400); Red Blood Count 5.39 X10*6/uL (4.60-5.80); Red Cell Distribution Width 13.2 % (11.0-16.0); White Blood Count 8.1 X10*3/uL (4.8-10.8)
[2022-06-14 00:32] LABS: INTERNATIONAL NORM RATIO 1.1 (0.9-1.1); Prothrombin Time 12.2 SEC (10.0-13.1)
[2022-06-14] MEDS: PHENobarbitaL sodium 130 MG/ML IM ONCE 330 MG IM (00:33)
[2022-06-14 00:34] LABS: Ethanol < 10 mg/dL
[2022-06-14 00:35] LABS: Lactic Acid 5.9 mmol/L (0.5-2.0)
[2022-06-14 00:38] LABS: Alanine Aminotransferase 32 U/L (0-40); Albumin Level 4.8 g/dL (3.5-5.0); Alkaline Phosphatase 69 U/L (39-117); Anion Gap 23 (12-20); Aspartate Amino Transferase 30 U/L (5-37); Blood Urea Nitrogen 4 mg/dL (9-16); Calcium 10.3 mg/dL (8.4-10.2); Carbon Dioxide 26 mmol/L (22-29); Chloride 93 mmol/L (96-108); Creatinine Clr Calc Pharmacy 92.4; Estimated Glomerular Filt Rate > 60; Glucose Random 113 mg/dL (60-115); Lipase 15 U/L (8-78); Potassium 3.3 mmol/L (3.3-5.1); Sodium 139 mmol/L (135-145); Total Protein 8.3 g/dL (6.5-8.0)
--- NOTE | 2022-06-14 00:43 | PC.NURSE ---
pt very nauseous, dry heaving, anxious, agitated, c/o headache and pins and needles feeling to fingertips. pt reports his insides feel on fire and points to L U/LQ. patient scoring 25 on ciwa. MD keen notified. patient on quality assurance monitor final. 2L bolus normal saline running, IM phenobarb given per oct. call blue within reach. will continue to monitor.
--- NOTE | 2022-06-14 00:49 | ED.ALCOHOL ---
HPI - Alcohol General Chief Complaint: ETOH/Substance Use Stated Complaint: stomach pain/abd pain Time Seen by Provider: 06/13/22 23:47 Source: patient Mode of arrival: ambulatory History of Present Illness HPI narrative: 31-year-old male history of alcohol dependence presents with significant left lower abdominal pain as well as right upper quadrant pain and back pain that he states started after he has not eaten in ?1 week? in feels like he is going to pass out. Patient is nauseous and vomiting and states that he relapsed with alcohol. He denies any fever or chills. Related Data Previous Rx's Medication Instructions Recorded naproxen 500 mg tablet 500 mg PO BID PRN pain #15 tabs 12/23/20 lorazepam 1 mg tablet 1 mg PO BID PRN alcohol withdrawal 10/30/21 #10 tabs ondansetron 4 mg disintegrating 4 mg PO Q8H 4 days #12 tabs 10/30/21 tablet potassium chloride 20 mEq 20 meq PO DAILY #7 tabs 10/30/21 tablet,extended release(part/cryst) lorazepam 0.5 mg tablet (Ativan) 0.5 mg PO TID PRN alcohol 04/24/22 withdrawal #10 tabs ondansetron 4 mg disintegrating 4 mg PO Q8H PRN nausea #14 tabs 04/24/22 tablet Allergies Allergy/AdvReac Type Severity Reaction Status Date / Time No Known Allergies Allergy Verified 12/23/20 22:33 Review of Systems Review of Systems: Pertinent positives and negatives as stated in HPI 10 point review of systems is otherwise negative. [facility] Past Medical History Source: nursing notes reviewed Medical History ETOH abuse No known health problems Social History Social History Alcohol intake: current Alcohol intake frequency: 3 or more drinks per day Alcohol type: hard liquor Patient Tobacco Use Status: Current someday Tobacco user Advance Directives: No Physical Exam ED Vital Signs: Vital Signs - 24 hr 06/13/22 23:39 06/14/22 00:02 Temperature 97.8 F 98.9 F Pulse Rate 144 H 110 H Respiratory Rate 20 15 Blood Pressure 129/84 145/95 H Pulse Oximetry 100 98 Oxygen Delivery Method Room Air Room Air BMI result Body Mass Index 25.8 VITAL SIGNS: Reviewed. GENERAL: Well developed, well nourished, in no acute distress. HEAD: Normocephalic/atraumatic EYES: PERRLA, EOMI EARS: Ext canals without abnormality OROPHARYNX: no oral lesions noted, posterior pharynx clear LUNGS: Normal breath sounds. No adventitious sounds or accessory muscle use. SpO2<100> CARDIOVASCULAR: Regular rate and rhythm without noted murmurs ABDOMEN: Soft, diffusely tender, non-distended with bowel sounds. MUSCULOSKELETAL: No tenderness, deformities, or effusions noted on gross inspection. EXTREMITIES: No cyanosis, clubbing or edema. SKIN: Inspection of the skin reveals no rashes NEUROLOGIC: Alert and oriented x 4. Strength and sensation to light touch were grossly intact x 4. Course Course Course Narrative: 31-year-old male with history and clinical presentation although suggestive of acute alcohol withdrawal and started on a phenobarb protocol no evidence of concomitant alcohol ketoacidosis although lactic acid is 5.9 this is likely secondary to acute dehydration from significant nausea and vomiting. Patient received IV fluid hydration, antiemetics. On review of patient's lab work low clinical suspicion for gross alcohol withdrawal symptoms. Patient also states that he is on a program for alcohol detox with naltrexone. Patient has received 1 dose of phenobarb and we will repeat the lactic acid after fluid hydration. Signed out to Dr Mills. Medications Administered Discontinued Medications Generic Name Dose Route Start Last Admin Trade Name Freq PRN Reason Stop Dose Admin Sodium Chloride 2,000 mls @ 999 mls/hr 06/13/22 23:45 06/14/22 00:22 Ns IV 06/14/22 01:45 999 mls/hr .Q2H1M EL Administration Phenobarbital Sodium 330 mg 06/14/22 00:15 06/14/22 00:33 Phenobarbital Sodium 130 Mg/Ml Im Once IM 06/14/22 00:16 330 mg ONCE ONE Administration MDM - Alcohol Lab Data Result diagrams: 06/14/22 00:14 06/14/22 00:14 Labs: Lab Results 06/14/22 06/14/22 06/14/22 Range/Units 00:14 00:14 00:14 WBC 8.1 (4.8-10.8) X10*3/uL RBC 5.39 (4.60-5.80) X10*6/uL Hgb 16.4 (14.0-18.0) g/dl Hct 47.6 (42.0-52.0) % MCV 88.3 (80.0-98.0) fL MCH 30.4 (27.0-33.0) pg MCHC 34.5 (31.0-36.0) g/dl RDW 13.2 (11.0-16.0) % Plt Count 458 H (160-400) X10*3/uL MPV 8.6 L (9.4-12.4) fL Immature Gran % (Auto) 0.2 (0.0-0.4) % Neut % (Auto) 61.2 (45-73) % Lymph % (Auto) 24.9 (20-40) % Wilkinson % (Auto) 12.0 H (2-11) % Eos % (Auto) 0.6 (0-4) % Baso % (Auto) 1.1 (0-2) % Lymph # (Auto) 2.0 (1.2-4.9) X10*3/uL Wilkinson # (Auto) 1.0 (0.1-1.2) X10*3/uL Eos # (Auto) 0.1 (0.0-0.4) X10*3/uL Baso # (Auto) 0.1 (0.0-0.2) X10*3/uL Abs Immat Gran (auto) 0.02 (0.00-0.03) X10*3/uL Absolute Neuts (auto) 5.0 (2.0-8.3) x10*3/uL Absolute Nucleated RBC 0.000 (0.0-0.012) X10*3/uL Nucleated RBC % (auto) 0.0 (0.0-0.2) /100WBC PT 12.2 (10.0-13.1) SEC INR 1.1 (0.9-1.1) Sodium 139 (135-145) mmol/L Potassium 3.3 (3.3-5.1) mmol/L Chloride 93 L (96-108) mmol/L Carbon Dioxide 26 (22-29) mmol/L Anion Gap 23 H (12-20) BUN 4 L (9-16) mg/dL Creatinine 1.13 (0.5-1.4) mg/dL Estim Creat Clear Calc 92.4 Estimated GFR > 60 Random Glucose 113 (60-115) mg/dL Lactic Acid (0.5-2.0) mmol/L Calcium 10.3 H (8.4-10.2) mg/dL Total Bilirubin 1.0 (0.0-1.0) mg/dL AST 30 (5-37) U/L ALT 32 (0-40) U/L Alkaline Phosphatase 69 (39-117) U/L Total Protein 8.3 H (6.5-8.0) g/dL Albumin 4.8 (3.5-5.0) g/dL Lipase 15 (8-78) U/L Ethyl Alcohol mg/dL 06/14/22 06/14/22 Range/Units 00:14 00:14 WBC (4.8-10.8) X10*3/uL RBC (4.60-5.80) X10*6/uL Hgb (14.0-18.0) g/dl Hct (42.0-52.0) % MCV (80.0-98.0) fL MCH (27.0-33.0) pg MCHC (31.0-36.0) g/dl RDW (11.0-16.0) % Plt Count (160-400) X10*3/uL MPV (9.4-12.4) fL Immature Gran % (Auto) (0.0-0.4) % Neut % (Auto) (45-73) % Lymph % (Auto) (20-40) % Wilkinson % (Auto) (2-11) % Eos % (Auto) (0-4) % Baso % (Auto) (0-2) % Lymph # (Auto) (1.2-4.9) X10*3/uL Wilkinson # (Auto) (0.1-1.2) X10*3/uL Eos # (Auto) (0.0-0.4) X10*3/uL Baso # (Auto) (0.0-0.2) X10*3/uL Abs Immat Gran (auto) (0.00-0.03) X10*3/uL Absolute Neuts (auto) (2.0-8.3) x10*3/uL Absolute Nucleated RBC (0.0-0.012) X10*3/uL Nucleated RBC % (auto) (0.0-0.2) /100WBC PT (10.0-13.1) SEC INR (0.9-1.1) Sodium (135-145) mmol/L Potassium (3.3-5.1) mmol/L Chloride (96-108) mmol/L Carbon Dioxide (22-29) mmol/L Anion Gap (12-20) BUN (9-16) mg/dL Creatinine (0.5-1.4) mg/dL Estim Creat Clear Calc Estimated GFR Random Glucose (60-115) mg/dL Lactic Acid 5.9 H* (0.5-2.0) mmol/L Calcium (8.4-10.2) mg/dL Total Bilirubin (0.0-1.0) mg/dL AST (5-37) U/L ALT (0-40) U/L Alkaline Phosphatase (39-117) U/L Total Protein (6.5-8.0) g/dL Albumin (3.5-5.0) g/dL Lipase (8-78) U/L Ethyl Alcohol < 10 mg/dL ECG Data ECG #1: Attestation: I personally reviewed and interpreted this ECG as follows: Prior ECG tracings: available for review Interpretation: Sinus tachycardia, HR-105, no STEMI, CO/QRS/QTC are within normal limits. Discharge Plan Discharge Clinical Impression: Alcohol withdrawal syndrome, Dehydration Patient Disposition: Still a Patient Prescriptions: No Action naproxen 500 mg tablet 500 mg PO BID PRN (Reason: pain) Qty: 15 0RF ondansetron 4 mg tablet,disintegrating 4 mg PO Q8H PRN (Reason: nausea) Qty: 14 0RF lorazepam [Ativan] 0.5 mg tablet 0.5 mg PO TID PRN (Reason: alcohol withdrawal) Qty: 10 0RF lorazepam 1 mg tablet 1 mg PO BID PRN (Reason: alcohol withdrawal) Qty: 10 0RF ondansetron 4 mg tablet,disintegrating 4 mg PO Q8H 4 Days Qty: 12 0RF potassium chloride 20 mEq tablet,ER particles/crystals 20 meq PO DAILY Qty: 7 0RF
--- NOTE | 2022-06-14 01:42 | PC.NURSE ---
patient resting much more comfortably on stretcher after phenobarb administration. reports relief of symptoms expect just feels very tired now. still pain to LUQ but patient less shaky and tremulous and appears more comfortable. 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
[2022-06-14 01:58] VITALS: BP 137/73; PULSE 81; RESP 15; TEMP 36.7; O2SAT 96
[2022-06-14 02:04] LABS: Influenza A PCR NEGATIVE (Negative); Influenza B PCR NEGATIVE (Negative); Resp Syncy Virus RNA Qual PCR NEGATIVE (Negative); SARS COV2 PCR INHOUSE NEGATIVE (Negative)
[2022-06-14 02:19] LABS: Lactic Acid 2.9 mmol/L (0.5-2.0)
[2022-06-14 02:19] LABS: Reflex Lactate? Lactic Acid Added
[2022-06-14 02:21] LABS: Amphetamine Screen Urine Not Detected (Not Detect); Barbiturates, Urine POSITIVE (Not Detect); Benzodiazepines Screen Urine Not Detected (Not Detect); Cannabinoid Screen Urine POSITIVE (Not Detect); Cocaine Screen Urine Not Detected (Not Detect); Fentanyl, urine Not Detected (Not Detect); Opiate Screen Urine Not Detected (Not Detect); Phencyclidine Screen Urine Not Detected (Not Detect)
[2022-06-14] MEDS: Dextrose 5 % and 0.45 % NaCl 1,000 ML 999 ML IVCONT (02:34)
[2022-06-14 02:35] VITALS: BP 137/72; PULSE 91; RESP 15; O2SAT 98
[2022-06-14 02:35] LABS: Magnesium 1.5 mg/dL (1.6-2.6)
[2022-06-14 03:37] LABS: ~Lactic Acid-LAB USE ONLY 2.7 mmol/L (0.5-2.0)
[2022-06-14 03:43] VITALS: BP 137/42; PULSE 79; RESP 20; TEMP 36.2; O2SAT 97
[2022-06-14 04:01] LABS: Reflex Lactate? Lactic Acid Added
[2022-06-14] MEDS: Midazolam HCl/PF 2 MG/2 ML VIAL IVPUSH (04:26)
[2022-06-14] MEDS: ondansetron HCL 4 MG/2 ML VIAL IVPUSH (04:27)
[2022-06-14] MEDS: Famotidine/PF 20 MG/2 ML VIAL IVPUSH (04:27)
--- NOTE | 2022-06-14 04:31 | PC.NURSE ---
Pt a&o with nausea. Medicated per Oct. Notified DEJA Awad
[2022-06-14] MEDS: Magnesium Sulfate/H2O 2 GM/50 ML PIGGYBACK IV (04:56)
[2022-06-14 05:00] VITALS: BP 106/56; PULSE 79; RESP 16; O2SAT 97
[2022-06-14 05:20] LABS: Reflex Lactate? 2 Y
[2022-06-14 06:08] VITALS: BP 106/56; PULSE 76; RESP 19; TEMP 36.7; O2SAT 98
[2022-06-14] MEDS: chlordiazePOXIDE HCl 25 MG CAPSULE 50 MG PO (07:20)
--- NOTE | 2022-06-14 07:29 | PC.NURSE ---
Pt alert and oriented, respirations even and unlabored. Speaking in full, clear sentences. Bus passes given to pt for discharge.
== END 2022-06-14 07:31 | disposition home or self-care (01) ==
PROVIDERS: Student in an Organized Health Care Education/Training Program; Emergency Provider Internal Medicine
DX: F10.230 Alcohol dependence with withdrawal, uncomplicated (principal); Y90.0 Blood alcohol level of less than 20 mg/100 ml; E86.0 Dehydration; F17.200 Nicotine dependence, unspecified, uncomplicated; Z79.899 Other long term (current) drug therapy
CPT/HCPCS: 0241U; 36415; 80053; 80307; 82077; 83605; 83690; 83735; 85025; 85610; 93005; 96361; 96365; 96366; 96367; 96372; 96375; 99285; J2250; J2405; J2560; J3475

== ENCOUNTER 2022-08-11 08:01 | Inpatient (IN) | payer OTHER, SELFPAY ==
[2022-08-11] VITALS (8 sets, daily range): BP systolic 116–189; BP diastolic 74–105; PULSE 67–102; RESP 14–19; TEMP 36.1–37.2; O2SAT 96–100; BMI 27.4
--- NOTE | ~2022-08-11 | XR_ITS ---
EXAMINATION: XR CHEST CLINICAL INFORMATION: Weakness COMPARISON: None TECHNIQUE: Frontal view of the chest was obtained. FINDINGS: No significant abnormality is noted involving the heart, lungs, mediastinum, bony thorax or soft tissues. XR/XR chest 1V IMPRESSION: Unremarkable examination.
--- NOTE | 2022-08-11 08:32 | ED.ALCOHOL ---
HPI - Alcohol General Chief Complaint: ETOH/Substance Use Stated Complaint: crisis, hearing voices, hallucinations Time Seen by Provider: 08/11/22 08:29 Source: patient Mode of arrival: ambulatory Limitations: no limitations History of Present Illness HPI narrative: 31-year-old male who presents emergency department for evaluation of alcohol withdrawal. The patient states he drinks 40 beers per day in he recently stopped drinking. The patient states that he wanted to stop drinking so he stop drinking around midnight. He states this morning he was hallucinating, he was seeing shadows, use hearing voices. When he got to work, he appeared shaking, hallucinating in withdrawing from alcohol and his boss told him that he needs to get his act together and she made him drink 2 bottle of wine. This did not improve his withdrawal symptoms. Patient states that he feels like he is going to pass out. He is having visual hallucinations, he states that he is seeing shadows, things in the room are moving and he is also having auditory hallucinations. He states that he has a voice in his head telling him not to talk to anybody. The patient was seen in the emergency department on 06/14/2022 for alcohol withdrawal treated with phenobarbital x1 dose and then discharged with Librium. Related Data Previous Rx's Medication Instructions Recorded naproxen 500 mg tablet 500 mg PO BID PRN pain #15 tabs 12/23/20 lorazepam 1 mg tablet 1 mg PO BID PRN alcohol withdrawal 10/30/21 #10 tabs ondansetron 4 mg disintegrating 4 mg PO Q8H 4 days #12 tabs 10/30/21 tablet potassium chloride 20 mEq 20 meq PO DAILY #7 tabs 10/30/21 tablet,extended release(part/cryst) lorazepam 0.5 mg tablet (Ativan) 0.5 mg PO TID PRN alcohol 04/24/22 withdrawal #10 tabs ondansetron 4 mg disintegrating 4 mg PO Q8H PRN nausea #14 tabs 04/24/22 tablet chlordiazepoxide HCl 25 mg capsule 50 mg PO Q6H PRN alcohol 06/14/22 withdrawal 6 doses #12 caps ondansetron 4 mg disintegrating 4 mg PO Q6-8H PRN nausea and 06/14/22 tablet vomiting #14 tabs pantoprazole 40 mg tablet,delayed 40 mg PO DAILY #30 tabs 06/14/22 release (Protonix) Allergies Allergy/AdvReac Type Severity Reaction Status Date / Time No Known Allergies Allergy Verified 08/11/22 08:14 Review of Systems Review of Systems: Yes all other systems are reviewed and are negative [facility] Past Medical History [facility] Narrative: Past medical history: Alcohol use disorder: Past surgical history: None. Social history: The patient denies tobacco use. He states that he drinks 40 beers per day. He denies drug use. Medical History ETOH abuse No known health problems Social History Social History Alcohol intake: current Alcohol intake frequency: 3 or more drinks per day Alcohol type: hard liquor Patient Tobacco Use Status: Current someday Tobacco user Advance Directives: No Physical Exam ED Vital Signs: Vital Signs - 24 hr 08/11/22 08:10 08/11/22 10:51 Temperature 97.0 F Pulse Rate 102 H 74 Respiratory Rate 18 18 Blood Pressure 189/105 H 116/74 Pulse Oximetry 97 99 Oxygen Delivery Method Room Air Nasal Cannula Oxygen Flow Rate 2 BMI result Body Mass Index 27.4 Vital signs reviewed, the patient has an elevated heart rate and elevated BP General: Awake, alert, male patient, is very tremulous, he is diaphoretic, he is actively hallucinating, he staring at the curtains and states that they are moving, he states that he is hearing voices that are telling him not to talk to us: HEENT exam: Normocephalic atraumatic, pupils dilated, equal, reactive to light, mouth revealed moist membranes with no erythema, Neck: Supple Chest: Nontender Heart: Tachycardia, normal S1-S2, no murmurs rubs or gallops Abdomen: Soft, nontender, nondistended with normoactive bowel sounds Back: No CVA tenderness Neurologic exam: Nonfocal Psychiatric exam: Patient is having visual and auditory hallucinations Medical Decision Making Medical Decision Making [facility] Narrative: 31-year-old male patient who presents emergency department for evaluation of alcohol withdrawal syndrome with auditory and visual hallucinations. Patient states he drinks 40 beers per day he stop drinking because he wanted to get better. Patient is tachycardic and hypertensive. He is diaphoretic and appears to be actively hallucinating. I ordered laboratory evaluation to include CBC, CMP, alcohol level, drug urine screen, troponin, CK, PT/INR, PTT, urinalysis, COVID-19, influenza RSV. Patient was ordered to get normal saline x1 L. I also ordered phenobarbital 15 milligrams/kilogram IM as per protocol. Patient is actively hallucinating he was treated with Versed 4 mg IV and Haldol 5 mg IV. 1219: My laboratory interpretation is as follows: Platelet count elevated 459,000, CMP normal, lipase normal, blood alcohol level elevated 265. My independent interpretation of the chest x-ray is no acute disease. The patient feels significantly better after the above treatment. The patient is experiencing delirium tremens and I do not think that it is stable to discharge to home and he needs to be admitted to further be detoxed on phenobarbital. Therefore I will discuss the patient's admission with the covering hospitalist. Differential Diagnosis Differential diagnosis includes but is not limited to acute alcohol intoxication, acute alcohol withdrawal, toxic metabolic syndrome, acute psychosis, polysubstance use Consult Healthcare Provider Management of the patient was discussed with: Hospitalist Lab Data [facility] Lab Attestation statement: I reviewed the patient's lab results. See [facility] for my independent interpretation of laboratory evaluation Result Diagrams: 08/11/22 08:30 08/11/22 09:22 Labs: Lab Results 08/11/22 08/11/22 08/11/22 Range/Units 08:30 08:30 09:22 WBC 10.1 (4.8-10.8) X10*3/uL RBC 5.28 (4.60-5.80) X10*6/uL Hgb 16.2 (14.0-18.0) g/dl Hct 47.0 (42.0-52.0) % MCV 89.0 (80.0-98.0) fL MCH 30.7 (27.0-33.0) pg MCHC 34.5 (31.0-36.0) g/dl RDW 12.8 (11.0-16.0) % Plt Count 459 H (160-400) X10*3/uL MPV 8.3 L (9.4-12.4) fL Immature Gran % (Auto) 0.2 (0.0-0.4) % Neut % (Auto) 61.0 (45-73) % Lymph % (Auto) 29.1 (20-40) % [place]ult[place] % (Auto) 6.6 (2-11) % Eos % (Auto) 2.1 (0-4) % Baso % (Auto) 1.0 (0-2) % Lymph # (Auto) 2.9 (1.2-4.9) X10*3/uL [place] # (Auto) 0.7 (0.1-1.2) X10*3/uL Eos # (Auto) 0.2 (0.0-0.4) X10*3/uL Baso # (Auto) 0.1 (0.0-0.2) X10*3/uL Abs Immat Gran (auto) 0.02 (0.00-0.03) X10*3/uL Absolute Neuts (auto) 6.2 (2.0-8.3) x10*3/uL Absolute Nucleated RBC 0.000 (0.0-0.012) X10*3/uL Nucleated RBC % (auto) 0.0 (0.0-0.2) /100WBC PT 12.3 (10.0-13.1) SEC INR 1.1 (0.9-1.1) APTT 28.2 (26.0-36.4) SEC Sodium (135-145) mmol/L Potassium (3.3-5.1) mmol/L Chloride (96-108) mmol/L Carbon Dioxide (22-29) mmol/L Anion Gap (12-20) BUN (9-16) mg/dL Creatinine (0.5-1.4) mg/dL Estim Creat Clear Calc Estimated GFR Random Glucose (60-115) mg/dL Calcium (8.4-10.2) mg/dL Total Bilirubin (0.0-1.0) mg/dL AST (5-37) U/L ALT (0-40) U/L Alkaline Phosphatase (39-117) U/L Total Creatine Kinase (38-174) U/L Troponin I High Sens (<3.5-35.0) ng/L Total Protein (6.5-8.0) g/dL Albumin (3.5-5.0) g/dL Lipase (8-78) U/L Ethyl Alcohol 265 mg/dL Influenza Type A (PCR) (Negative) Influenza Type B (PCR) (Negative) RSV RNA Qual (PCR) (Negative) SARS-CoV-2 RNA (RT-PCR) (Negative) 08/11/22 08/11/22 08/11/22 Range/Units 09:22 09:22 09:22 WBC (4.8-10.8) X10*3/uL RBC (4.60-5.80) X10*6/uL Hgb (14.0-18.0) g/dl Hct (42.0-52.0) % MCV (80.0-98.0) fL MCH (27.0-33.0) pg MCHC (31.0-36.0) g/dl RDW (11.0-16.0) % Plt Count (160-400) X10*3/uL MPV (9.4-12.4) fL Immature Gran % (Auto) (0.0-0.4) % Neut % (Auto) (45-73) % Lymph % (Auto) (20-40) % [place] % (Auto) (2-11) % Eos % (Auto) (0-4) % Baso % (Auto) (0-2) % Lymph # (Auto) (1.2-4.9) X10*3/uL [place] # (Auto) (0.1-1.2) X10*3/uL Eos # (Auto) (0.0-0.4) X10*3/uL Baso # (Auto) (0.0-0.2) X10*3/uL Abs Immat Gran (auto) (0.00-0.03) X10*3/uL Absolute Neuts (auto) (2.0-8.3) x10*3/uL Absolute Nucleated RBC (0.0-0.012) X10*3/uL Nucleated RBC % (auto) (0.0-0.2) /100WBC PT (10.0-13.1) SEC INR (0.9-1.1) APTT (26.0-36.4) SEC Sodium 144 (135-145) mmol/L Potassium 3.8 (3.3-5.1) mmol/L Chloride 108 (96-108) mmol/L Carbon Dioxide 24 (22-29) mmol/L Anion Gap 16 (12-20) BUN 7 L (9-16) mg/dL Creatinine 0.80 (0.5-1.4) mg/dL Estim Creat Clear Calc 132.0 Estimated GFR > 60 Random Glucose 88 (60-115) mg/dL Calcium 8.9 D (8.4-10.2) mg/dL Total Bilirubin 0.4 (0.0-1.0) mg/dL AST 28 (5-37) U/L ALT 18 (0-40) U/L Alkaline Phosphatase 53 (39-117) U/L Total Creatine Kinase 173 (38-174) U/L Troponin I High Sens < 3.5 (<3.5-35.0) ng/L Total Protein 7.0 (6.5-8.0) g/dL Albumin 4.1 (3.5-5.0) g/dL Lipase 17 (8-78) U/L Ethyl Alcohol mg/dL Influenza Type A (PCR) NEGATIVE (Negative) Influenza Type B (PCR) NEGATIVE (Negative) RSV RNA Qual (PCR) NEGATIVE (Negative) SARS-CoV-2 RNA (RT-PCR) NEGATIVE (Negative) Independent Interpretation I performed an independent interpretation of an: EKG and Plain X-Ray Interpretation: My independent interpretation patient's 12 EKG done at 0970 hours is as follows: Normal sinus rhythm rate 92, normal CO interval, QRS duration QTC interval, no ST segment elevation, no ST segment depression, no significant T-wave abnormalities. This is a normal EKG. Radiology Impression Discussion of test interpretation with radiology: I have reviewed the radiologist's reading. Radiologist Impression: One-view chest x-ray: IMPRESSION: Unremarkable examination. Dictated By:Jona Nieto MDSigned By:<Electronically signed by Jona Nieto MD in [place]>08/11/22 1051 Medications Administered Discontinued Medications Generic Name Dose Route Start Last Admin Trade Name Freq PRN Reason Stop Dose Admin Haloperidol Lactate 5 mg 08/11/22 08:34 08/11/22 08:40 Haloperidol Lactate 5 Mg/Ml Vial IVPUSH 08/11/22 08:35 5 mg STAT STA Administration Sodium Chloride 1,000 mls @ 999 mls/hr 08/11/22 08:35 08/11/22 09:52 Ns IV 08/11/22 09:35 Infused .Q1H1M STA Infusion Midazolam HCl 4 mg 08/11/22 08:33 08/11/22 08:40 Midazolam Hcl/Pf 2 Mg/2 Ml Vial IVPUSH 08/11/22 08:34 4 mg ONCE STA Administration Phenobarbital Sodium 383 mg 08/11/22 09:00 08/11/22 09:05 Phenobarbital Sodium 130 Mg/Ml Im Once IM 08/11/22 09:01 383 mg ONCE ONE Administration Discharge Plan Discharge Patient Disposition: Admitted As Inpatient Prescriptions: No Action naproxen 500 mg tablet 500 mg PO BID PRN (Reason: pain) Qty: 15 0RF ondansetron 4 mg tablet,disintegrating 4 mg PO Q8H PRN (Reason: nausea) Qty: 14 0RF lorazepam [Ativan] 0.5 mg tablet 0.5 mg PO TID PRN (Reason: alcohol withdrawal) Qty: 10 0RF chlordiazepoxide HCl 25 mg capsule 50 mg PO Q6H PRN (Reason: alcohol withdrawal) Qty: 12 0RF ondansetron 4 mg tablet,disintegrating 4 mg PO Q6-8H PRN (Reason: nausea and vomiting) Qty: 14 0RF pantoprazole [Protonix] 40 mg tablet,delayed release (DR/EC) 40 mg PO DAILY Qty: 30 0RF lorazepam 1 mg tablet 1 mg PO BID PRN (Reason: alcohol withdrawal) Qty: 10 0RF ondansetron 4 mg tablet,disintegrating 4 mg PO Q8H 4 Days Qty: 12 0RF potassium chloride 20 mEq tablet,ER particles/crystals 20 meq PO DAILY Qty: 7 0RF
[2022-08-11 08:36] LABS: MANUAL DIFF FLAG NO
--- NOTE | 2022-08-11 08:37 | ECG_ITS ---
Test Reason : cp alcohol w/d Blood Pressure : / mmHG Vent. Rate : 092 BPM Atrial Rate : 092 BPM P-R Int : 160 ms QRS Dur : 088 ms QT Int : 372 ms P-R-T Axes : 059 060 054 degrees QTc Int : 460 ms Normal sinus rhythm Normal ECG When compared with ECG of 14-JUN-2022 00:05, No significant change was found Referred By: Cruz Ortega Electronically Signed By:DANIELLE MARION
[2022-08-11 08:39] LABS: Basophils Absolute Auto 0.1 X10*3/uL (0.0-0.2); Eosinophils Absolute Auto 0.2 X10*3/uL (0.0-0.4); Eosinophils Percent Auto 2.1 % (0-4); Hemoglobin 16.2 g/dl (14.0-18.0); Imm Gran Abs Auto 0.02 X10*3/uL (0.00-0.03); Imm Gran Pct Auto 0.2 % (0.0-0.4); Lymphocytes Absolute Auto 2.9 X10*3/uL (1.2-4.9); Lymphocytes Percent Auto 29.1 % (20-40); Mean Corpuscular HGB Conc 34.5 g/dl (31.0-36.0); Mean Corpuscular Hemoglobin 30.7 pg (27.0-33.0); Mean Platelet Volume 8.3 fL (9.4-12.4); Monocytes Absolute Auto 0.7 X10*3/uL (0.1-1.2); Monocytes Percent Auto 6.6 % (2-11); Neutrophils Absolute Auto 6.2 x10*3/uL (2.0-8.3); Platelet Count 459 X10*3/uL (160-400); Red Blood Count 5.28 X10*6/uL (4.60-5.80); Red Cell Distribution Width 12.8 % (11.0-16.0); White Blood Count 10.1 X10*3/uL (4.8-10.8)
[2022-08-11] MEDS: Haloperidol Lactate 5 MG/ML VIAL IVPUSH (08:40)
[2022-08-11] MEDS: 0.9 % Sodium Chloride 1,000 ML 999 ML IV (08:40)
[2022-08-11] MEDS: Midazolam HCl/PF 2 MG/2 ML VIAL 4 MG IVPUSH (08:40)
[2022-08-11 08:55] LABS: Ethanol 265 mg/dL
[2022-08-11] MEDS: PHENobarbitaL sodium 130 MG/ML IM ONCE 383 MG IM (09:05)
[2022-08-11 09:34] LABS: INTERNATIONAL NORM RATIO 1.1 (0.9-1.1); Prothrombin Time 12.3 SEC (10.0-13.1)
[2022-08-11 09:37] LABS: Partial Thromboplastin Time 28.2 SEC (26.0-36.4)
[2022-08-11 09:53] LABS: Alanine Aminotransferase 18 U/L (0-40); Albumin Level 4.1 g/dL (3.5-5.0); Alkaline Phosphatase 53 U/L (39-117); Anion Gap 16 (12-20); Aspartate Amino Transferase 28 U/L (5-37); Bilirubin Total 0.4 mg/dL (0.0-1.0); Blood Urea Nitrogen 7 mg/dL (9-16); Calcium 8.9 mg/dL (8.4-10.2); Carbon Dioxide 24 mmol/L (22-29); Chloride 108 mmol/L (96-108); Estimated Glomerular Filt Rate > 60; Glucose Random 88 mg/dL (60-115); Lipase 17 U/L (8-78); Potassium 3.8 mmol/L (3.3-5.1); Sodium 144 mmol/L (135-145)
[2022-08-11 10:04] LABS: Troponin-I High Sensitivity < 3.5 ng/L (<3.5-35.0)
[2022-08-11 10:32] LABS: Influenza A PCR NEGATIVE (Negative); Influenza B PCR NEGATIVE (Negative); Resp Syncy Virus RNA Qual PCR NEGATIVE (Negative); SARS COV2 PCR INHOUSE NEGATIVE (Negative)
[2022-08-11] MEDS: PHENobarbitaL sodium 130 MG/ML VIAL IM Q3Hx2 288 MG IM ×2 (12:37→16:56)
--- NOTE | 2022-08-11 12:59 | PHA.MEDREC ---
Pharmacy Consult ? Medication Reconciliation Pharmacy has completed the medication reconciliation.
--- NOTE | 2022-08-11 13:43 | P.HPHOSP_ITS ---
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 but decided to quit midnight this morning developed auditory and visual hallucination and shakiness prior to going to work at work boss noted him to be confused therefore recommended him to drink wine to stop his withdrawal symptoms but since patient became more delirious he was brought in to [facility] in the ER patient was noted to be hallucinating his vitals were stable he was treated with Versed 4 mg IV, Haldol 5 mg IV and given 15 milligram/kg IM phenobarb patient alcohol level was 265, COVID-19, influenza and RSV were negative patient is now being admitted to [facility] for treatment for alcohol intoxication and now withdrawal, patient is awake alert denies hallucination, denies shakiness, he feels lonely since his parents are , he does not want to talk about over them, he has no siblings, he has no family members, lab showed normal LFTs, normal renal function and electrolytes, will check magnesium level and urine toxicology, chest x-ray unremarkable. Review of Systems Review of Systems: General no headache no dizziness no fever chills. CVS no chest pain, no palpitation. Respiratory no cough, no sob Gastrointestinal no nausea no vomiting, no abdominal pain Skin no rash no urgency, no frequency Yes all other systems are reviewed and are negative PMFSH Medical History ETOH abuse No known health problems Pertinent family history: Both parents are patient not aware of cause of and does not want to discuss about it. Social History Household Members: Spouse and Children Housing: Apartment Do you presently have visiting nurse or other home services: No Alcohol intake: current Alcohol intake frequency: 3 or more drinks per day Alcohol type: hard liquor Patient Tobacco Use Status: Former Tobacco user Use of substances other than those prescribed or required for medical reasons: Yes Substance Use Type: Marijuana Substance Use Frequency: Weekly Last Used Substance: Days (ago) Currently Displaying Signs/Symptoms of Drug Intoxication Withdrawal: No Any prior treatment program specific to substance use: No Have you been hit, kicked, punched, or otherwise hurt by someone within the past year? If so, by whom?: No Do you feel safe in your current relationship?: Yes Is there a partner from a previous relationship who is making you feel unsafe now?: No Are you made to feel afraid or neglected: No Advance Directives: No Do you have thoughts of harming others: None Do you have a plan to hurt others: No Plan Recently lost weight without trying: No Nutrition Risks: No Nutritional Risk Poor oral hygiene: No Meds Allergies Allergy/AdvReac Type Severity Reaction Status Date / Time No Known Allergies Allergy Verified 08/11/22 08:14 Active Medications: Current Medications Acetaminophen (Acetaminophen 325 Mg Tablet) 650 mg PO Q6H PRN PRN Reason: Pain, Mild (Pain Scale 1-3) Melatonin (Melatonin 3 Mg Tablet) 3 mg PO BEDTIME PRN PRN Reason: Insomnia Ondansetron HCl (Ondansetron Hcl 4 Mg/2 Ml Vial) 4 mg IVPUSH Q8H PRN PRN Reason: Nausea and Vomiting Pharmacy Consult (Consult Rx Etoh Phenob Im/Po) 1 each MISCELLANE ONCE PRN; Protocol PRN Reason: Consult order Phenobarbital (Phenobarbital 15 Mg Tablet) 45 mg PO BID [facility] Stop: 08/13/22 21:01 Phenobarbital (Phenobarbital 30 Mg Tablet) 30 mg PO BID [facility] Stop: 08/15/22 21:01 Phenobarbital (Phenobarbital 30 Mg Tablet) 30 mg PO DAILY [facility] Stop: 08/17/22 09:01 Phenobarbital Sodium (Phenobarbital Sodium 130 Mg/Ml Vial Im Q3hx2) 288 mg IM Q3H [facility] Stop: 08/11/22 15:01 Last Admin: 08/11/22 12:37 Dose: 288 mg Sodium Chloride (0.9 % Sodium Chloride Flush 3 Ml Syringe) 3 ml IVFLUSH QSHIFT [facility] Home Medications Medication Instructions Recorded Confirmed Last Taken Type milk thistle 500 mg capsule 1,000 mg PO DAILY 08/11/22 08/11/22 Unknown History naltrexone 50 mg tablet 1 tab PO DAILY 08/11/22 08/11/22 Unknown History omeprazole 20 mg capsule,delayed 20 mg PO DAILY@0630 08/11/22 08/11/22 Unknown History release Physical Exam Vital Signs and Narrative: Vital Signs: Last Vital Signs Temp 98.2 F 08/11/22 13:10 Pulse 70 08/11/22 13:10 Resp 14 08/11/22 13:10 BP 121/89 08/11/22 13:10 Pulse Ox 97 08/11/22 13:10 O2 Del Method 08/11/22 13:10 O2 Flow Rate 2 08/11/22 10:51 BMI result Body Mass Index 27.4 Const: Other: General awake alert, resting comfortably in no acute distress. Anicteric sclera Neck supple no JVD. CVS regular rate rhythm, Respiratory lungs clear to auscultation, no respiratory distress, no wheeze, no rhonchi. Gastrointestinal abdomen soft, nontender, bowel sounds audible, no guarding , no rigidity. Extremities no clubbing cyanosis or edema. Neuro nonfocal ,no tremors , speech clear. Skin no rash Psych depressed mood Results Labs 08/11/22 08:30 08/11/22 09:22 Labs: Laboratory Results - last 24 hr 08/11/22 08/11/22 08/11/22 08:30 08:30 09:22 MCV 89.0 MCH 30.7 MCHC 34.5 RDW 12.8 Plt Count 459 H MPV 8.3 L Immature Gran % (Auto) 0.2 Neut % (Auto) 61.0 Lymph % (Auto) 29.1 [place] % (Auto) 6.6 Eos % (Auto) 2.1 Baso % (Auto) 1.0 Lymph # (Auto) 2.9 [place] # (Auto) 0.7 Eos # (Auto) 0.2 Baso # (Auto) 0.1 Abs Immat Gran (auto) 0.02 Absolute Neuts (auto) 6.2 Absolute Nucleated RBC 0.000 Nucleated RBC % (auto) 0.0 PT 12.3 INR 1.1 APTT 28.2 Anion Gap Estim Creat Clear Calc Estimated GFR Random Glucose Calcium Total Bilirubin AST ALT Alkaline Phosphatase Total Creatine Kinase Troponin I High Sens Total Protein Albumin Lipase Ethyl Alcohol 265 Influenza Type A (PCR) Influenza Type B (PCR) RSV RNA Qual (PCR) SARS-CoV-2 RNA (RT-PCR) 08/11/22 08/11/22 08/11/22 09:22 09:22 09:22 MCV MCH MCHC RDW Plt Count MPV Immature Gran % (Auto) Neut % (Auto) Lymph % (Auto) [place] % (Auto) Eos % (Auto) Baso % (Auto) Lymph # (Auto) [place] # (Auto) Eos # (Auto) Baso # (Auto) Abs Immat Gran (auto) Absolute Neuts (auto) Absolute Nucleated RBC Nucleated RBC % (auto) PT INR APTT Anion Gap 16 Estim Creat Clear Calc 132.0 Estimated GFR > 60 Random Glucose 88 Calcium 8.9 D Total Bilirubin 0.4 AST 28 ALT 18 Alkaline Phosphatase 53 Total Creatine Kinase 173 Troponin I High Sens < 3.5 Total Protein 7.0 Albumin 4.1 Lipase 17 Ethyl Alcohol Influenza Type A (PCR) NEGATIVE Influenza Type B (PCR) NEGATIVE RSV RNA Qual (PCR) NEGATIVE SARS-CoV-2 RNA (RT-PCR) NEGATIVE Imaging Radiologist's Impressions: Impressions Chest X-Ray 08/11/22 10:05 IMPRESSION: Unremarkable examination. Assessment and Plan (1) Alcohol intoxication: Qualifiers: Complication of substance-induced condition: with delirium Qualified Code(s): F10.921 - Alcohol use, unspecified with intoxication delirium Status: Acute (2) Delirium tremens: Status: Acute Plan 31-year-old gentleman with no significant past medical history presented to [facility] due to auditory and visual hallucination and confusion initially noted to have a systolic blood pressure 189/105 patient treated in the emergency room with IV Versed, IV Haldol 5 mg and IM phenobarb, 15 microgram/kilogram patient now more awake alert denies hallucination, has no confusion is being admitted to [facility] for continued monitoring and treatment of alcohol withdrawal. Delirium tremens Patient presented with confusion, auditory and visual hallucination, will check urine toxicology for substance abuse Continue phenobarb protocol, by mouth thiamine and folic acid Will check magnesium level Obtain care team consult for alcohol abuse GI prophylaxis continue Prilosec DVT prophylaxis low risk recommend early ambulation Patient will need 2 night inpatient stay due to alcohol withdrawal symptoms associated with hallucination on high-dose phenobarb Time Spent With Patient Time: Total time managing care of this patient today ____ minutes. Quality Stroke Does the patient have a stroke diagnosis?: No VTE Prior VTE?: No VTE Risk Level:: Medical - low VTE Device Contraindication: Treatment Not Indicated VTE Drug Contraindication: Treatment Not Indicated
[2022-08-11 14:02] LABS: Magnesium 2.2 mg/dL (1.6-2.6)
[2022-08-11 16:13] LABS: Appearance Urine Clear; Color Urine Yellow; Glucose Urine UA Negative (Negative); Leukocyte Esterase Urine Negative (Negative); Nitrite Urine Negative (Negative); Urine Blood Negative (Negative); Urine Ketones Negative (Negative); Urine Protein Negative (Neg-Trace)
[2022-08-11 16:31] LABS: Amphetamine Screen Urine Not Detected (Not Detect); Barbiturates, Urine POSITIVE (Not Detect); Benzodiazepines Screen Urine POSITIVE (Not Detect); Cannabinoid Screen Urine POSITIVE (Not Detect); Cocaine Screen Urine Not Detected (Not Detect); Fentanyl, urine Not Detected (Not Detect); Opiate Screen Urine Not Detected (Not Detect); Phencyclidine Screen Urine Not Detected (Not Detect)
[2022-08-11] MEDS: 0.9 % Sodium Chloride Flush 3 ML SYRINGE IVFLUSH (17:38)
[2022-08-11 18:12] LABS: Amphetamine Screen Urine Not Detected (Not Detect); Barbiturates, Urine POSITIVE (Not Detect); Benzodiazepines Screen Urine POSITIVE (Not Detect); Cannabinoid Screen Urine POSITIVE (Not Detect); Cocaine Screen Urine Not Detected (Not Detect); Fentanyl, urine Not Detected (Not Detect); Opiate Screen Urine Not Detected (Not Detect); Phencyclidine Screen Urine Not Detected (Not Detect)
[2022-08-12 03:48] VITALS: BP 138/89; PULSE 54; RESP 20; TEMP 36.9; O2SAT 99
[2022-08-12] MEDS: Omeprazole 20 MG CAPSULE.DR PO (04:57)
[2022-08-12] MEDS: PHENobarbitaL 15 MG TABLET 45 MG PO (07:26)
[2022-08-12] MEDS: Folic Acid 1 MG TABLET PO (07:27)
[2022-08-12] MEDS: Thiamine HCL 100 MG TABLET PO (07:27)
[2022-08-12] MEDS: 0.9 % Sodium Chloride Flush 3 ML SYRINGE IVFLUSH (07:27)
[2022-08-12 07:49] VITALS: BP 150/101; PULSE 82; RESP 20; TEMP 37; O2SAT 98
--- NOTE | 2022-08-12 08:58 | MHC.CM.PN ---
Patient has been medically cleared for dc to home today, self care and has been dc prior to CM Initial Assessment.
--- NOTE | 2022-08-12 09:46 | P.DS_ITS ---
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 to quit 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 this morning developed auditory and visual hallucination and shakiness prior to going to work at work boss noted him to be confused therefore recommended him to drink wine to stop his withdrawal symptoms but since patient became more delirious he was brought in to [facility] in the ER patient was noted to be hallucinating his vitals were stable he was treated with Versed 4 mg IV, Haldol 5 mg IV and given 15 milligram/kg IM phenobarb patient alcohol level was 265, COVID-19, influenza and RSV were negative patient is now being admitted to [facility] for treatment for alcohol intoxication and now withdrawal, patient is awake alert denies hallucination, denies shakiness, he feels lonely since his parents are , he does not want to talk about over them, he has no siblings, he has no family members, lab showed normal LFTs, normal renal function and electrolytes, will check magnesium level and urine toxicology, chest x-ray unremarkable. Hospital course Patient admitted to telemetry unit was treated with phenobarb, thiamine and folic acid patient remained hemodynamically stable mild elevation of blood pressure this morning patient denies any tremors no visual or auditory hallucination patient is adamant to leave the hospital since he has to go to work, he has been affiliated with [facility] and have his naltrexone, he has been evaluated by care team in the past he is declining to be seen by care team since patient is awake alert with no tremors coherent therefore he is being discharged home with strong recommendation to completely abstain from drinking and to follow-up with [facility]. Time Spent with Patient Time attestation: Total time managing care of this patient today ____ minutes. Discharge coordination time: Greater than 30 minutes Quality: Safe Use of Opioids Does Pt have an Active Cancer Diagnosis on the Problem List?: No Quality: Stroke Does the patient have a stroke diagnosis?: No Physical Exam Vital Signs: Vital Signs: Last Vital Signs Temp 98.6 F 08/12/22 07:49 Pulse 82 08/12/22 07:49 Resp 20 08/12/22 07:49 BP 150/101 H 08/12/22 07:49 Pulse Ox 98 08/12/22 07:49 O2 Del Method 08/12/22 07:49 O2 Flow Rate 2 08/11/22 10:51 BMI result Body Mass Index 27.4 Const: Other: General patient resting comfortably in no acute distress. Neck is supple no JVD. CVS regular rate rhythm, Respiratory lungs clear to auscultation, no respiratory distress, no wheeze, no rhonchi. Gastrointestinal abdomen soft, nontender, bowel sounds audible, no guarding , no rigidity. Extremities no edema. Neuro nonfocal , no tremors, speech clear. Skin no rash Psych appropriate affect DS: Data Data Completed and Pending Labs on day of discharge: Laboratory Results - last 24 hr 08/11/22 08/11/22 08/11/22 09:22 09:22 09:22 Sodium 144 Potassium 3.8 Chloride 108 Carbon Dioxide 24 Anion Gap 16 BUN 7 L Creatinine 0.80 Estim Creat Clear Calc 132.0 Estimated GFR > 60 Random Glucose 88 Calcium 8.9 D Magnesium 2.2 Total Bilirubin 0.4 AST 28 ALT 18 Alkaline Phosphatase 53 Total Creatine Kinase 173 Troponin I High Sens < 3.5 Total Protein 7.0 Albumin 4.1 Lipase 17 Urine Color Urine Appearance Urine pH Ur Specific [place] Urine Protein Urine Glucose (UA) Urine Ketones Urine Blood Urine Nitrite Ur Leukocyte Esterase Urine Opiates Screen Urine Fentanyl Screen Ur Barbiturates Screen Ur Phencyclidine Scrn Ur Amphetamines Screen U Benzodiazepines Scrn Urine Cocaine Screen U Marijuana (THC) Screen Influenza Type A (PCR) NEGATIVE Influenza Type B (PCR) NEGATIVE RSV RNA Qual (PCR) NEGATIVE SARS-CoV-2 RNA (RT-PCR) NEGATIVE 08/11/22 08/11/22 08/11/22 15:46 15:46 15:46 Sodium Potassium Chloride Carbon Dioxide Anion Gap BUN Creatinine Estim Creat Clear Calc Estimated GFR Random Glucose Calcium Magnesium Total Bilirubin AST ALT Alkaline Phosphatase Total Creatine Kinase Troponin I High Sens Total Protein Albumin Lipase Urine Color Yellow Urine Appearance Clear Urine pH 7.0 Ur Specific [place] 1.010 Urine Protein Negative Urine Glucose (UA) Negative Urine Ketones Negative Urine Blood Negative Urine Nitrite Negative Ur Leukocyte Esterase Negative Urine Opiates Screen Not Detected Not Detected Urine Fentanyl Screen Not Detected Not Detected Ur Barbiturates Screen POSITIVE H POSITIVE H Ur Phencyclidine Scrn Not Detected Not Detected Ur Amphetamines Screen Not Detected Not Detected U Benzodiazepines Scrn POSITIVE H POSITIVE H Urine Cocaine Screen Not Detected Not Detected U Marijuana (THC) Screen POSITIVE H POSITIVE H Influenza Type A (PCR) Influenza Type B (PCR) RSV RNA Qual (PCR) SARS-CoV-2 RNA (RT-PCR) Discharge Plan Discharge Anticipated Discharge Date/Time: 08/12/22 08:42 Patient Disposition: Home, Self-Care Discharge Diagnosis: Alcohol withdrawal Referrals: Physician,Johana J [Primary Care Provider] - 1 Week Discharge Medications: Continued milk thistle 500 mg Capsule 1,000 mg PO DAILY Rx Instructions: give with meal/snack naltrexone 50 mg tablet 1 tab PO DAILY omeprazole 20 mg Capsule,Delayed Release(Dr/Ec) 20 mg PO DAILY@0630 Discharge Orders: Discharge Order (Routine); Ordered 08/12/22 Ordered By: Tyron Bhatti Diet: Advance to usual diet Activity on Discharge: As tolerated Stand Alone Forms: Patient Portal Discharge page, Work/School Release Care Plan Goals: Patient has been recommended to follow up at [facility], take naltrexone, strongly recommend to abstain from alcohol Health Concerns: Return to check with recurrent symptoms of hallucination, confusion chest pain lightheadedness or dizziness. Plan of Treatment: Follow-up with primary care physician Assessment: As above Discharge Date/Time: 08/12/22 09:04
== END 2022-08-12 09:04 | disposition home or self-care (01) | DRG 775 ==
LOC: HO.ED 12:23 → HO.EDOVER 13:46 → HO.IMC 16:00
PROVIDERS: Admitting Provider Hospitalist; Emergency Provider Emergency Medicine Emergency Medical Services; Visit Provider Hospitalist
DX: F10.121 Alcohol abuse with intoxication delirium (principal); F10.131 Alcohol abuse with withdrawal delirium; Y90.8 Blood alcohol level of 240 mg/100 ml or more
CPT/HCPCS: 0241U; 36415; 71045; 80053; 80307; 81003; 82077; 82550; 83690; 83735; 84484; 85025; 85610; 85730; 93005; 99285; J2250; J2560

== ENCOUNTER 2022-10-13 18:57 | Emergency (ER) | payer OTHER, SELFPAY ==
--- NOTE | ~2022-10-13 | XR_ITS ---
EXAMINATION: XR CHEST CLINICAL INFORMATION: Shortness of breath COMPARISON: Chest x-ray 08/11/2022 TECHNIQUE: 2 views of the chest were obtained. FINDINGS: No significant abnormality is noted involving the heart, lungs, mediastinum, bony thorax or soft tissues. XR/XR chest 2V IMPRESSION: Unremarkable examination.
[2022-10-13 19:15] VITALS: BP 157/101; PULSE 71; RESP 18; TEMP 36.6; O2SAT 99; BMI 29.0
--- NOTE | 2022-10-13 19:19 | ED_ITS ---
HPI - Chest Pain General Chief Complaint: General Medical <Loretta Garcia CNP - Last Filed: 10/13/22 19:40> Stated Complaint: sob chest pain <Loretta Garcia CNP - Last Filed: 10/13/22 19:40> Time Seen by Provider: 10/13/22 21:02 <Loretta Garcia CNP - Last Filed: 10/13/22 19:40> Source: patient <Hafsa Saini MD - Last Filed: 10/13/22 21:38> Mode of arrival: ambulatory <Hafsa Saini MD - Last Filed: 10/13/22 21:38> Limitations: no limitations <Hafsa Saini MD - Last Filed: 10/13/22 21:38> History of Present Illness HPI narrative: Patient comes to the emergency room complaining of chest pain that started at 17:00. Patient states he was a strange sensation, more like pressure, nonradiating. Patient states that this time he feels completely back to normal. Patient is asymptomatic. Initially, patient complain about possible withdrawal symptoms. Patient had alcohol approximately 2 and half days ago. Patient states that yesterday was the worst day for him but he is feeling much better. Patient states that today he had mild abdominal cramping, diarrhea sensation like, a bit of nausea. Patient states that at this time he has none of those symptoms. Patient states that he has never had alcohol withdrawal seizures. <Hafsa Saini MD - Last Filed: 10/13/22 21:38> Related Data Home Medications: Home Medications Medication Instructions Recorded Confirmed milk thistle 500 mg capsule 1,000 mg PO DAILY 08/11/22 08/11/22 naltrexone 50 mg tablet 1 tab PO DAILY 08/11/22 08/11/22 omeprazole 20 mg capsule,delayed 20 mg PO DAILY@0630 08/11/22 08/11/22 release Previous Rx's Medication Instructions Recorded clonidine HCl 0.1 mg tablet 0.1 mg PO TID PRN alcohol 10/13/22 withdrawal #14 tabs loperamide 2 mg capsule 2 mg PO Q6H PRN loose stool #14 10/13/22 caps ondansetron HCl 4 mg tablet 4 mg PO Q6H PRN nausea and 10/13/22 vomiting #14 tabs <Loretta Garcia CNP - Last Filed: 10/13/22 19:40> Allergies/Adverse Reactions: Allergies Allergy/AdvReac Type Severity Reaction Status Date / Time No Known Allergies Allergy Verified 08/11/22 08:14 <Loretta Garcia CNP - Last Filed: 10/13/22 19:40> Review of Systems Review of Systems: Constitutional : No Weight loss, No Fever, No Chills, No Ni ght Sweats, No Fatigue, No Malaise ENT/Mouth : No Hearing loss, No Ear Pain, No Nasal Congestion, No Sinus Pain, No Hoarseness, No sore throat, No Rhinorrhea, No Swallowing Difficulty Eyes: No Eye Pain, No Swelling, No Redness, No Foreign Body, No Discharge, No Vision Changes Cardiovascular : Chest pressure lasted for a few minutes and self resolved, No Chest Pain, No SOB, No Dyspnea on Exertion, No Orthopnea, No Edema, No Palpitations Respiratory : No Cough, No Sputum, No Wheezing, No Smoke Exposure, No Dyspnea Gastrointestinal : Mild nausea, no vomiting, diarrhea like sensation/abdominal cramping, No Constipation, No abdominal Pain, No Hematochezia, No Melena Genitourinary : no irregular bleeding, No Dysuria, No Urinary Frequency, No Hematuria, No Urinary Incontinence, No Urgency, No Flank Pain, No Urinary Flow Changes, No Hesitancy Musculoskeletal : No joint pain, No Myalgias, No Joint Swelling Skin : No Skin Lesions, No rash Neuro : No Weakness, No Numbness, No Paresthesias, No Loss of Consciousness, No Dizziness, No Headache Psych : No Anxiety/Panic, No Depression, No SI/HI/AH/VH, No Social Issues, Heme/Lymph: No Bruising, No Bleeding,No Lymphadenopathy Endocrine : No Polyuria, No Polydipsia, No Temperature Intolerance <Hafsa Saini MD - Last Filed: 10/13/22 21:38> [facility] Past Medical History Medical History: Medical History ETOH abuse No known health problems <Loretta Garcia CNP - Last Filed: 10/13/22 19:40> Social History Social History: Social History Household Members: Spouse and Children Housing: Apartment Do you presently have visiting nurse or other home services: No Alcohol intake: current Alcohol intake frequency: former alcohol drinker Alcohol type: beer Patient Tobacco Use Status: Former Tobacco user Substance Use Type: Marijuana Advance Directives: No Advance Directives Information Provided: No <Loretta GarciaDENISHA - Last Filed: 10/13/22 19:40> Physical Exam Vital Signs: Vital Signs: Last Vital Signs Temp 98.3 F 10/13/22 20:30 Pulse 66 10/13/22 20:30 Resp 22 H 10/13/22 20:30 BP 164/103 H 10/13/22 20:30 Pulse Ox 99 10/13/22 20:30 O2 Del Method 10/13/22 20:30 BMI result Body Mass Index 29.0 <Loretta GarciaDENISHA - Last Filed: 10/13/22 19:40> Vital Signs: Last Vital Signs Temp 98.3 F 10/13/22 20:30 Pulse 66 10/13/22 20:30 Resp 22 H 10/13/22 20:30 BP 164/103 H 10/13/22 20:30 Pulse Ox 99 10/13/22 20:30 O2 Del Method 10/13/22 20:30 BMI result Body Mass Index 29.0 <Hafsa Saini MD - Last Filed: 10/13/22 21:38> Const: Other: Appearance: Alert. Oriented X3. No acute distress. Eyes: Pupils equal, round and reactive to light. ENT: Pharynx normal. Neck: Normal inspection. Neck supple. No lymph nodes noted. No crepitus CVS: Normal heart rate and rhythm. Pulses normal. Normal S1 and S2 Respiratory: No respiratory distress. Breath sounds normal. No Wheezing. No rales Abdomen: Soft and nontender. No rigidity. No distention. Skin: Skin warm and dry. Normal skin color. Normal skin turgor. Extremities: No lower extremity edema. No Lacerations. No Rash Neuro: Oriented X 3. No motor deficit. No sensory deficit. Moving all extremities. No slurred speech. CN 2 through 12 grossly intact Psych: calm, cooperative, normal affect <Hafsa Saini MD - Last Filed: 10/13/22 21:38> Course Course Course Narrative: This is an RME: Additional HPI, ROS, PE not included below will be deferred to primary provider. Patient is a 31-year-old male presents to the emergency department for evaluation of chest pain. Reports Today 1700 while resting at home, began experiencing midsternal CP described as heaviness, sharp pain beneath the ribs, shortness of breath that is constant even while at rest. He expresses concerns about EtOH withdrawal, 10/11/22 2100 was last drink, drinks about 30 beers daily, interested in detox, reports history of withdrawal seizures. States he feels confused and having body aches. While labs being drawn patient then expressing vague reports of intermittent testicular pain, without any swelling/ redness/ trauma. denies dysuria, urinary frequency, hematuria, penile discharge. Plan: labs, viral testing, EKG, CXR, urinalysis, CT NG <Loretta Garcia CNP - Last Filed: 10/13/22 19:40> Medical Decision Making Medical Decision Making MDM Narrative: -patient's troponin negative, chest x-ray negative, EKG within normal limits -EKG my interpretation: Sinus rhythm, heart rate 68, no ST segment depression or elevation, no T-wave inversion, QTC 427 -chest x-ray my interpretation: No infiltrates, no pneumothorax or fractured ribs -I offered to the patient admission for alcohol withdrawal. Also offered to the patient information for detox. Patient respectfully declined. Patient states he is already in a program. Patient states that he feels that he is doing much better, the worse passed yesterday. Patient declined talking to the care team -patient requesting to not be given any benzos or narcotics. Patient agreeable to take clonidine, loperamide and Zofran -other than the patient's blood pressure being on the higher side, patient has no other symptoms of alcohol withdrawal. Patient states that he feels at baseli ne and feels well. <Hafsa Saini MD - Last Filed: 10/13/22 21:38> Differential Diagnosis Differential Diagnoses: The differential diagnosis associated with the presentation includes (Alcohol withdrawal, substance abuse, viral syndrome) <Hafsa Saini MD - Last Filed: 10/13/22 21:38> Admission/Observation Consideration of admission/observation: Escalation of care including admission/observation considered (Patient respectfully declined) <Hafsa Saini MD - Last Filed: 10/13/22 21:38> Lab Data [facility] Lab Attestation statement: I reviewed the patient's lab results. <Hafsa Saini MD - Last Filed: 10/13/22 21:38> Result Diagrams: 10/13/22 19:45 10/13/22 19:45 <Loretta Garcia CNP - Last Filed: 10/13/22 19:40> Labs: Lab Results 10/13/22 10/13/22 10/13/22 Range/Units 19:45 19:45 19:45 WBC 9.7 (4.8-10.8) X10*3/uL RBC 4.42 L (4.60-5.80) X10*6/uL Hgb 13.9 L (14.0-18.0) g/dl Hct 40.2 L (42.0-52.0) % MCV 91.0 (80.0-98.0) fL MCH 31.4 (27.0-33.0) pg MCHC 34.6 (31.0-36.0) g/dl RDW 12.6 (11.0-16.0) % Plt Count 445 H (160-400) X10*3/uL MPV 8.7 L (9.4-12.4) fL Immature Gran % (Auto) 0.3 (0.0-0.4) % Neut % (Auto) 55.0 (45-73) % Lymph % (Auto) 30.9 (20-40) % [place] % (Auto) 9.0 (2-11) % Eos % (Auto) 4.1 H (0-4) % Baso % (Auto) 0.7 (0-2) % Lymph # (Auto) 3.0 (1.2-4.9) X10*3/uL [place] # (Auto) 0.9 (0.1-1.2) X10*3/uL Eos # (Auto) 0.4 (0.0-0.4) X10*3/uL Baso # (Auto) 0.1 (0.0-0.2) X10*3/uL Abs Immat Gran (auto) 0.03 (0.00-0.03) X10*3/uL Absolute Neuts (auto) 5.3 (2.0-8.3) x10*3/uL Absolute Nucleated RBC 0.000 (0.0-0.012) X10*3/uL Nucleated RBC % (auto) 0.0 (0.0-0.2) /100WBC Sodium 140 (135-145) mmol/L Potassium 4.1 (3.3-5.1) mmol/L Chloride 101 (96-108) mmol/L Carbon Dioxide 29 (22-29) mmol/L Anion Gap 14 (12-20) BUN 9 (9-16) mg/dL Creatinine 0.98 (0.5-1.4) mg/dL Estim Creat Clear Calc 118.0 Estimated GFR > 60 Random Glucose 99 (60-115) mg/dL Calcium 9.7 D (8.4-10.2) mg/dL Total Bilirubin 0.8 (0.0-1.0) mg/dL AST 32 (5-37) U/L ALT 28 (0-40) U/L Alkaline Phosphatase 71 (39-117) U/L Troponin I High Sens < 3.5 (<3.5-35.0) ng/L Total Protein 7.0 (6.5-8.0) g/dL Albumin 4.2 (3.5-5.0) g/dL Lipase 17 (8-78) U/L Urine Color Urine Appearance Urine pH (5.0-9.0) Ur Specific [place] (1.005-1.025) Urine Protein (Neg-Trace) mg/dL Urine Glucose (UA) (Negative) mg/dL Urine Ketones (Negative) mg/dL Urine Blood (Negative) Urine Nitrite (Negative) Ur Leukocyte Esterase (Negative) Urine Opiates Screen (Not Detect) Urine Fentanyl Screen (Not Detect) Ur Barbiturates Screen (Not Detect) Ur Phencyclidine Scrn (Not Detect) Ur Amphetamines Screen (Not Detect) U Benzodiazepines Scrn (Not Detect) Urine Cocaine Screen (Not Detect) U Marijuana (THC) Screen (Not Detect) Ethyl Alcohol < 10 mg/dL COVID-19 (ELIE) (Negative) COVID-19 Clin Com Influenza Type A (ROJELIO) (Negative) Influenza Type B (ROJELIO) (Negative) Influenza A & B Note 10/13/22 10/13/22 10/13/22 Range/Units 19:45 19:45 19:45 WBC (4.8-10.8) X10*3/uL RBC (4.60-5.80) X10*6/uL Hgb (14.0-18.0) g/dl Hct (42.0-52.0) % MCV (80.0-98.0) fL MCH (27.0-33.0) pg MCHC (31.0-36.0) g/dl RDW (11.0-16.0) % Plt Count (160-400) X10*3/uL MPV (9.4-12.4) fL Immature Gran % (Auto) (0.0-0.4) % Neut % (Auto) (45-73) % Lymph % (Auto) (20-40) % [place] % (Auto) (2-11) % Eos % (Auto) (0-4) % Baso % (Auto) (0-2) % Lymph # (Auto) (1.2-4.9) X10*3/uL [place] # (Auto) (0.1-1.2) X10*3/uL Eos # (Auto) (0.0-0.4) X10*3/uL Baso # (Auto) (0.0-0.2) X10*3/uL Abs Immat Gran (auto) (0.00-0.03) X10*3/uL Absolute Neuts (auto) (2.0-8.3) x10*3/uL Absolute Nucleated RBC (0.0-0.012) X10*3/uL Nucleated RBC % (auto) (0.0-0.2) /100WBC Sodium (135-145) mmol/L Potassium (3.3-5.1) mmol/L Chloride (96-108) mmol/L Carbon Dioxide (22-29) mmol/L Anion Gap (12-20) BUN (9-16) mg/dL Creatinine (0.5-1.4) mg/dL Estim Creat Clear Calc Estimated GFR Random Glucose (60-115) mg/dL Calcium (8.4-10.2) mg/dL Total Bilirubin (0.0-1.0) mg/dL AST (5-37) U/L ALT (0-40) U/L Alkaline Phosphatase (39-117) U/L Troponin I High Sens (<3.5-35.0) ng/L Total Protein (6.5-8.0) g/dL Albumin (3.5-5.0) g/dL Lipase (8-78) U/L Urine Color Yellow Urine Appearance Clear Urine pH 8.0 (5.0-9.0) Ur Specific [place] 1.010 (1.005-1.025) Urine Protein Negative (Neg-Trace) mg/dL Urine Glucose (UA) Negative (Negative) mg/dL Urine Ketones Negative (Negative) mg/dL Urine Blood Negative (Negative) Urine Nitrite Negative (Negative) Ur Leukocyte Esterase Negative (Negative) Urine Opiates Screen (Not Detect) Urine Fentanyl Screen (Not Detect) Ur Barbiturates Screen (Not Detect) Ur Phencyclidine Scrn (Not Detect) Ur Amphetamines Screen (Not Detect) U Benzodiazepines Scrn (Not Detect) Urine Cocaine Screen (Not Detect) U Marijuana (THC) Screen (Not Detect) Ethyl Alcohol mg/dL COVID-19 (ELIE) Negative (Negative) COVID-19 Clin Com See Note Influenza Type A (ROJELIO) Negative (Negative) Influenza Type B (ROJELIO) Negative (Negative) Influenza A & B Note See Note 10/13/22 Range/Units 21:10 WBC (4.8-10.8) X10*3/uL RBC (4.60-5.80) X10*6/uL Hgb (14.0-18.0) g/dl Hct (42.0-52.0) % MCV (80.0-98.0) fL MCH (27.0-33.0) pg MCHC (31.0-36.0) g/dl RDW (11.0-16.0) % Plt Count (160-400) X10*3/uL MPV (9.4-12.4) fL Immature Gran % (Auto) (0.0-0.4) % Neut % (Auto) (45-73) % Lymph % (Auto) (20-40) % [place] % (Auto) (2-11) % Eos % (Auto) (0-4) % Baso % (Auto) (0-2) % Lymph # (Auto) (1.2-4.9) X10*3/uL [place] # (Auto) (0.1-1.2) X10*3/uL Eos # (Auto) (0.0-0.4) X10*3/uL Baso # (Auto) (0.0-0.2) X10*3/uL Abs Immat Gran (auto) (0.00-0.03) X10*3/uL Absolute Neuts (auto) (2.0-8.3) x10*3/uL Absolute Nucleated RBC (0.0-0.012) X10*3/uL Nucleated RBC % (auto) (0.0-0.2) /100WBC Sodium (135-145) mmol/L Potassium (3.3-5.1) mmol/L Chloride (96-108) mmol/L Carbon Dioxide (22-29) mmol/L Anion Gap (12-20) BUN (9-16) mg/dL Creatinine (0.5-1.4) mg/dL Estim Creat Clear Calc Estimated GFR Random Glucose (60-115) mg/dL Calcium (8.4-10.2) mg/dL Total Bilirubin (0.0-1.0) mg/dL AST (5-37) U/L ALT (0-40) U/L Alkaline Phosphatase (39-117) U/L Troponin I High Sens (<3.5-35.0) ng/L Total Protein (6.5-8.0) g/dL Albumin (3.5-5.0) g/dL Lipase (8-78) U/L Urine Color Urine Appearance Urine pH (5.0-9.0) Ur Specific [place] (1.005-1.025) Urine Protein (Neg-Trace) mg/dL Urine Glucose (UA) (Negative) mg/dL Urine Ketones (Negative) mg/dL Urine Blood (Negative) Urine Nitrite (Negative) Ur Leukocyte Esterase (Negative) Urine Opiates Screen Not Detected (Not Detect) Urine Fentanyl Screen Not Detected (Not Detect) Ur Barbiturates Screen Not Detected (Not Detect) Ur Phencyclidine Scrn Not Detected (Not Detect) Ur Amphetamines Screen Not Detected (Not Detect) U Benzodiazepines Scrn Not Detected (Not Detect) Urine Cocaine Screen Not Detected (Not Detect) U Marijuana (THC) Screen POSITIVE H (Not Detect) Ethyl Alcohol mg/dL COVID-19 (ELIE) (Negative) COVID-19 Clin Com Influenza Type A (ROJELIO) (Negative) Influenza Type B (ROJELIO) (Negative) Influenza A & B Note <Loretta Berrios Radha, PRODUCTION OPERATIONS ENGINEER - Last Filed: 10/13/22 19:40> Lab Results 10/13/22 10/13/22 10/13/22 Range/Units 19:45 19:45 19:45 WBC 9.7 (4.8-10.8) X10*3/uL RBC 4.42 L (4.60-5.80) X10*6/uL Hgb 13.9 L (14.0-18.0) g/dl Hct 40.2 L (42.0-52.0) % MCV 91.0 (80.0-98.0) fL MCH 31.4 (27.0-33.0) pg MCHC 34.6 (31.0-36.0) g/dl RDW 12.6 (11.0-16.0) % Plt Count 445 H (160-400) X10*3/uL MPV 8.7 L (9.4-12.4) fL Immature Gran % (Auto) 0.3 (0.0-0.4) % Neut % (Auto) 55.0 (45-73) % Lymph % (Auto) 30.9 (20-40) % [place] % (Auto) 9.0 (2-11) % Eos % (Auto) 4.1 H (0-4) % Baso % (Auto) 0.7 (0-2) % Lymph # (Auto) 3.0 (1.2-4.9) X10*3/uL [place] # (Auto) 0.9 (0.1-1.2) X10*3/uL Eos # (Auto) 0.4 (0.0-0.4) X10*3/uL Baso # (Auto) 0.1 (0.0-0.2) X10*3/uL Abs Immat Gran (auto) 0.03 (0.00-0.03) X10*3/uL Absolute Neuts (auto) 5.3 (2.0-8.3) x10*3/uL Absolute Nucleated RBC 0.000 (0.0-0.012) X10*3/uL Nucleated RBC % (auto) 0.0 (0.0-0.2) /100WBC Sodium 140 (135-145) mmol/L Potassium 4.1 (3.3-5.1) mmol/L Chloride 101 (96-108) mmol/L Carbon Dioxide 29 (22-29) mmol/L Anion Gap 14 (12-20) BUN 9 (9-16) mg/dL Creatinine 0.98 (0.5-1.4) mg/dL Estim Creat Clear Calc 118.0 Estimated GFR > 60 Random Glucose 99 (60-115) mg/dL Calcium 9.7 D (8.4-10.2) mg/dL Total Bilirubin 0.8 (0.0-1.0) mg/dL AST 32 (5-37) U/L ALT 28 (0-40) U/L Alkaline Phosphatase 71 (39-117) U/L Troponin I High Sens < 3.5 (<3.5-35.0) ng/L Total Protein 7.0 (6.5-8.0) g/dL Albumin 4.2 (3.5-5.0) g/dL Lipase 17 (8-78) U/L Urine Color Urine Appearance Urine pH (5.0-9.0) Ur Specific [place] (1.005-1.025) Urine Protein (Neg-Trace) mg/dL Urine Glucose (UA) (Negative) mg/dL Urine Ketones (Negative) mg/dL Urine Blood (Negative) Urine Nitrite (Negative) Ur Leukocyte Esterase (Negative) Urine Opiates Screen (Not Detect) Urine Fentanyl Screen (Not Detect) Ur Barbiturates Screen (Not Detect) Ur Phencyclidine Scrn (Not Detect) Ur Amphetamines Screen (Not Detect) U Benzodiazepines Scrn (Not Detect) Urine Cocaine Screen (Not Detect) U Marijuana (THC) Screen (Not Detect) Ethyl Alcohol < 10 mg/dL COVID-19 (ELIE) (Negative) COVID-19 Clin Com Influenza Type A (ROJELIO) (Negative) Influenza Type B (ROJELIO) (Negative) Influenza A & B Note 10/13/22 10/13/22 10/13/22 Range/Units 19:45 19:45 19:45 WBC (4.8-10.8) X10*3/uL RBC (4.60-5.80) X10*6/uL Hgb (14.0-18.0) g/dl Hct (42.0-52.0) % MCV (80.0-98.0) fL MCH (27.0-33.0) pg MCHC (31.0-36.0) g/dl RDW (11.0-16.0) % Plt Count (160-400) X10*3/uL MPV (9.4-12.4) fL Immature Gran % (Auto) (0.0-0.4) % Neut % (Auto) (45-73) % Lymph % (Auto) (20-40) % [place] % (Auto) (2-11) % Eos % (Auto) (0-4) % Baso % (Auto) (0-2) % Lymph # (Auto) (1.2-4.9) X10*3/uL [place] # (Auto) (0.1-1.2) X10*3/uL Eos # (Auto) (0.0-0.4) X10*3/uL Baso # (Auto) (0.0-0.2) X10*3/uL Abs Immat Gran (auto) (0.00-0.03) X10*3/uL Absolute Neuts (auto) (2.0-8.3) x10*3/uL Absolute Nucleated RBC (0.0-0.012) X10*3/uL Nucleated RBC % (auto) (0.0-0.2) /100WBC Sodium (135-145) mmol/L Potassium (3.3-5.1) mmol/L Chloride (96-108) mmol/L Carbon Dioxide (22-29) mmol/L Anion Gap (12-20) BUN (9-16) mg/dL Creatinine (0.5-1.4) mg/dL Estim Creat Clear Calc Estimated GFR Random Glucose (60-115) mg/dL Calcium (8.4-10.2) mg/dL Total Bilirubin (0.0-1.0) mg/dL AST (5-37) U/L ALT (0-40) U/L Alkaline Phosphatase (39-117) U/L Troponin I High Sens (<3.5-35.0) ng/L Total Protein (6.5-8.0) g/dL Albumin (3.5-5.0) g/dL Lipase (8-78) U/L Urine Color Yellow Urine Appearance Clear Urine pH 8.0 (5.0-9.0) Ur Specific [place] 1.010 (1.005-1.025) Urine Protein Negative (Neg-Trace) mg/dL Urine Glucose (UA) Negative (Negative) mg/dL Urine Ketones Negative (Negative) mg/dL Urine Blood Negative (Negative) Urine Nitrite Negative (Negative) Ur Leukocyte Esterase Negative (Negative) Urine Opiates Screen (Not Detect) Urine Fentanyl Screen (Not Detect) Ur Barbiturates Screen (Not Detect) Ur Phencyclidine Scrn (Not Detect) Ur Amphetamines Screen (Not Detect) U Benzodiazepines Scrn (Not Detect) Urine Cocaine Screen (Not Detect) U Marijuana (THC) Screen (Not Detect) Ethyl Alcohol mg/dL COVID-19 (ELIE) Negative (Negative) COVID-19 Clin Com See Note Influenza Type A (ROJELIO) Negative (Negative) Influenza Type B (ROJELIO) Negative (Negative) Influenza A & B Note See Note 10/13/22 Range/Units 21:10 WBC (4.8-10.8) X10*3/uL RBC (4.60-5.80) X10*6/uL Hgb (14.0-18.0) g/dl Hct (42.0-52.0) % MCV (80.0-98.0) fL MCH (27.0-33.0) pg MCHC (31.0-36.0) g/dl RDW (11.0-16.0) % Plt Count (160-400) X10*3/uL MPV (9.4-12.4) fL Immature Gran % (Auto) (0.0-0.4) % Neut % (Auto) (45-73) % Lymph % (Auto) (20-40) % [place] % (Auto) (2-11) % Eos % (Auto) (0-4) % Baso % (Auto) (0-2) % Lymph # (Auto) (1.2-4.9) X10*3/uL [place] # (Auto) (0.1-1.2) X10*3/uL Eos # (Auto) (0.0-0.4) X10*3/uL Baso # (Auto) (0.0-0.2) X10*3/uL Abs Immat Gran (auto) (0.00-0.03) X10*3/uL Absolute Neuts (auto) (2.0-8.3) x10*3/uL Absolute Nucleated RBC (0.0-0.012) X10*3/uL Nucleated RBC % (auto) (0.0-0.2) /100WBC Sodium (135-145) mmol/L Potassium (3.3-5.1) mmol/L Chloride (96-108) mmol/L Carbon Dioxide (22-29) mmol/L Anion Gap (12-20) BUN (9-16) mg/dL Creatinine (0.5-1.4) mg/dL Estim Creat Clear Calc Estimated GFR Random Glucose (60-115) mg/dL Calcium (8.4-10.2) mg/dL Total Bilirubin (0.0-1.0) mg/dL AST (5-37) U/L ALT (0-40) U/L Alkaline Phosphatase (39-117) U/L Troponin I High Sens (<3.5-35.0) ng/L Total Protein (6.5-8.0) g/dL Albumin (3.5-5.0) g/dL Lipase (8-78) U/L Urine Color Urine Appearance Urine pH (5.0-9.0) Ur Specific [place] (1.005-1.025) Urine Protein (Neg-Trace) mg/dL Urine Glucose (UA) (Negative) mg/dL Urine Ketones (Negative) mg/dL Urine Blood (Negative) Urine Nitrite (Negative) Ur Leukocyte Esterase (Negative) Urine Opiates Screen Not Detected (Not Detect) Urine Fentanyl Screen Not Detected (Not Detect) Ur Barbiturates Screen Not Detected (Not Detect) Ur Phencyclidine Scrn Not Detected (Not Detect) Ur Amphetamines Screen Not Detected (Not Detect) U Benzodiazepines Scrn Not Detected (Not Detect) Urine Cocaine Screen Not Detected (Not Detect) U Marijuana (THC) Screen POSITIVE H (Not Detect) Ethyl Alcohol mg/dL COVID-19 (ELIE) (Negative) COVID-19 Clin Com Influenza Type A (ROJELIO) (Negative) Influenza Type B (ROJELIO) (Negative) Influenza A & B Note <Hafsa Saini MD - Last Filed: 10/13/22 21:38> Independent Interpretation I performed an independent interpretation of an: EKG and Plain X-Ray <Hafsa Saini MD - Last Filed: 10/13/22 21:38> Radiology Impression Discussion of test interpretation with radiology: I have reviewed the radiologist's reading. <Hafsa Saini MD - Last [place] ed: 10/13/22 21:38> Radiologist Impression: FINDINGS: No significant abnormality is noted involving the heart, lungs, mediastinum, bony thorax or soft tissues. XR/XR chest 2V IMPRESSION: Unremarkable examination. <Hafsa Saini MD - Last Filed: 10/13/22 21:38> Discharge Plan Discharge Clinical Impression: Alcohol abuse, Atypical chest pain <Loretta Garcia CNP - Last Filed: 10/13/22 19:40> Patient Disposition: Home, Self-Care <Loretta Garcia CNP - Last Filed: 10/13/22 19:40> Instructions: Chest Pain (ED), Abuse of Alcohol (ED) <Loretta Garcia CNP - Last Filed: 10/13/22 19:40> Prescriptions: New clonidine HCl 0.1 mg tablet 0.1 mg PO TID PRN (Reason: alcohol withdrawal) Qty: 14 0RF ondansetron HCl 4 mg tablet 4 mg PO Q6H PRN (Reason: nausea and vomiting) Qty: 14 0RF loperamide 2 mg capsule 2 mg PO Q6H PRN (Reason: loose stool) Qty: 14 0RF No Action milk thistle 500 mg Capsule 1,000 mg PO DAILY Rx Instructions: give with meal/snack naltrexone 50 mg tablet 1 tab PO DAILY omeprazole 20 mg Capsule,Delayed Release(Dr/Ec) 20 mg PO DAILY@0630 <Loretta Garcia CNP - Last Filed: 10/13/22 19:40>
--- NOTE | 2022-10-13 19:23 | ECG_ITS ---
Test Reason : CHEST PAIN Blood Pressure : / mmHG Vent. Rate : 068 BPM Atrial Rate : 068 BPM P-R Int : 158 ms QRS Dur : 084 ms QT Int : 402 ms P-R-T Axes : 073 048 047 degrees QTc Int : 427 ms Normal sinus rhythm Normal ECG When compared with ECG of 11-AUG-2022 09:07, No significant change was found Referred By: Loretta Garcia Electronically Signed By:DANIELLE MARION
[2022-10-13 19:54] LABS: MANUAL DIFF FLAG NO
[2022-10-13 19:56] LABS: Basophils Absolute Auto 0.1 X10*3/uL (0.0-0.2); Basophils Percent Auto 0.7 % (0-2); Eosinophils Absolute Auto 0.4 X10*3/uL (0.0-0.4); Eosinophils Percent Auto 4.1 % (0-4); Hematocrit 40.2 % (42.0-52.0); Hemoglobin 13.9 g/dl (14.0-18.0); Imm Gran Abs Auto 0.03 X10*3/uL (0.00-0.03); Imm Gran Pct Auto 0.3 % (0.0-0.4); Lymphocytes Percent Auto 30.9 % (20-40); Mean Corpuscular HGB Conc 34.6 g/dl (31.0-36.0); Mean Corpuscular Hemoglobin 31.4 pg (27.0-33.0); Mean Platelet Volume 8.7 fL (9.4-12.4); Monocytes Absolute Auto 0.9 X10*3/uL (0.1-1.2); Neutrophils Absolute Auto 5.3 x10*3/uL (2.0-8.3); Platelet Count 445 X10*3/uL (160-400); Red Blood Count 4.42 X10*6/uL (4.60-5.80); Red Cell Distribution Width 12.6 % (11.0-16.0); White Blood Count 9.7 X10*3/uL (4.8-10.8)
[2022-10-13 19:59] LABS: Appearance Urine Clear; Color Urine Yellow; Glucose Urine UA Negative (Negative); Leukocyte Esterase Urine Negative (Negative); Nitrite Urine Negative (Negative); Urine Blood Negative (Negative); Urine Ketones Negative (Negative); Urine Protein Negative (Neg-Trace)
[2022-10-13 20:15] LABS: Alanine Aminotransferase 28 U/L (0-40); Albumin Level 4.2 g/dL (3.5-5.0); Alkaline Phosphatase 71 U/L (39-117); Anion Gap 14 (12-20); Aspartate Amino Transferase 32 U/L (5-37); Bilirubin Total 0.8 mg/dL (0.0-1.0); Blood Urea Nitrogen 9 mg/dL (9-16); Calcium 9.7 mg/dL (8.4-10.2); Carbon Dioxide 29 mmol/L (22-29); Chloride 101 mmol/L (96-108); Estimated Glomerular Filt Rate > 60; Ethanol < 10 mg/dL; Glucose Random 99 mg/dL (60-115); Potassium 4.1 mmol/L (3.3-5.1); Sodium 140 mmol/L (135-145)
[2022-10-13 20:23] LABS: Lipase 17 U/L (8-78); Troponin-I High Sensitivity < 3.5 ng/L (<3.5-35.0)
[2022-10-13 20:27] LABS: COVID-19 Test Negative (Negative); IDNOW Serial# 16C4AD1C; IDNOW Serial# BCCEAD1C; Influenza A Negative (Negative); Influenza B2 Negative (Negative)
--- NOTE | 2022-10-13 20:27 | PC.NURSE ---
Pt presents to the ED for evaluation of chest pain that started around 5pm. States he recently stopped drinking alcohol yesterday to detox himself . Relates drinking 25-30 beers a day. Also relates brain fog. Ambulatory to ED 20 with steady gait. Alert and oriented x4 on arrival. States his chest pain is better at this time.
[2022-10-13 20:30] VITALS: BP 164/103; PULSE 66; RESP 22; TEMP 36.8; O2SAT 99
[2022-10-13 21:25] LABS: Amphetamine Screen Urine Not Detected (Not Detect); Barbiturates, Urine Not Detected (Not Detect); Benzodiazepines Screen Urine Not Detected (Not Detect); Cannabinoid Screen Urine POSITIVE (Not Detect); Cocaine Screen Urine Not Detected (Not Detect); Fentanyl, urine Not Detected (Not Detect); Opiate Screen Urine Not Detected (Not Detect); Phencyclidine Screen Urine Not Detected (Not Detect)
[2022-10-13] MEDS: cloNIDine HCL 0.2 MG TABLET PO (21:58)
[2022-10-13] MEDS: Loperamide HCl 2 MG CAPSULE 4 MG PO (21:58)
[2022-10-13] MEDS: Ondansetron ODT 4 MG TAB.RAPDIS TRANSLINGU (21:59)
[2022-10-13 22:01] VITALS: BP 147/87; PULSE 63; RESP 19; O2SAT 99
[2022-10-14 02:22] LABS: CT PCR NOT DETECTED (Not Detect.); NG PCR NOT DETECTED (Not Detect.)
== END 2022-10-13 22:06 | disposition home or self-care (01) ==
PROVIDERS: Nurse Practitioner Family; Emergency Provider Emergency Medicine; PCP Registered Nurse
DX: R06.02 Shortness of breath (principal); R07.89 Other chest pain; F10.10 Alcohol abuse, uncomplicated; Y90.0 Blood alcohol level of less than 20 mg/100 ml; Z87.891 Personal history of nicotine dependence; Z20.822 Contact with and (suspected) exposure to COVID-19; Z20.828 Contact with and (suspected) exposure to other viral communicable diseases; Z79.899 Other long term (current) drug therapy
CPT/HCPCS: 0353U; 71046; 80053; 80307; 81003; 82077; 83690; 84484; 85025; 87502; 87635; 93005; 99283; 99284

== ENCOUNTER 2022-10-25 07:19 | Emergency (ER) | payer OTHER, SELFPAY ==
--- NOTE | 2022-10-25 07:23 | ED.CHESTPAIN ---
HPI - Chest Pain General Chief Complaint: Abdominal Pain Stated Complaint: CHEST PRESSURE,DIFF BREATHING SINCE 4AM Time Seen by Provider: 10/25/22 07:23 Source: EMS Mode of arrival: EMS History of Present Illness HPI narrative: Patient is an alcoholic and has been trying to taper and had chest pain at work. He received ASA in route. Chest pressure difficulty breathing. Patient vomited 6 or 7 times. Pain started before the vomiting. Patient feels like he is in withdrawal. No vomiting blood. Patient also recently did cocaine. MD complaint: chest heaviness Onset (ago): hour(s) Timing of current episode: constant Pain location: substernal Severity: moderate Quality: tightness Associated symptoms: nausea and vomiting Risk Factors Coronary artery disease risk factors: cocaine use Related Data Home Medications Medication Instructions Recorded Confirmed milk thistle 500 mg capsule 1,000 mg PO DAILY 08/11/22 08/11/22 naltrexone 50 mg tablet 1 tab PO DAILY 08/11/22 08/11/22 omeprazole 20 mg capsule,delayed 20 mg PO DAILY@0630 08/11/22 08/11/22 release Previous Rx's Medication Instructions Recorded clonidine HCl 0.1 mg tablet 0.1 mg PO TID PRN alcohol 10/13/22 withdrawal #14 tabs loperamide 2 mg capsule 2 mg PO Q6H PRN loose stool #14 10/13/22 caps ondansetron HCl 4 mg tablet 4 mg PO Q6H PRN nausea and 10/13/22 vomiting #14 tabs Allergies Allergy/AdvReac Type Severity Reaction Status Date / Time No Known Allergies Allergy Verified 08/11/22 08:14 Review of Systems Review of Systems: Yes all other systems are reviewed and are negative Cardiovascular: Cardiovascular: Reports chest pain Gastrointestinal: Gastrointestinal: Reports abdominal pain, Reports nausea and Reports vomiting Neurologic: Denies Sensory deficit (Neuro) [facility], [facility] Past Medical History Medical History ETOH abuse No known health problems Social History Social History Household Members: Spouse and Children Housing: Apartment Do you presently have visiting nurse or other home services: No Alcohol intake: current Alcohol intake frequency: former alcohol drinker Alcohol type: beer Patient Tobacco Use Status: Former Tobacco user Substance Use Type: Marijuana Advance Directives: No Advance Directives Information Provided: No Physical Exam Vital Signs: Vital Signs: Last Vital Signs Temp 98.2 F 10/25/22 07:46 Pulse 87 10/25/22 07:46 Resp 16 10/25/22 07:46 BP 155/90 H 10/25/22 07:46 Pulse Ox 98 10/25/22 07:46 O2 Del Method 10/25/22 07:46 BMI result Body Mass Index 30.4 Const: Other: anxious, hyperventilating Nutritional Appearance: average body habitus Orientation/consciousness: oriented to person and patient oriented x3 Limitations: no limitations HEENT: Head: Yes normal to inspection Ears: external ears normal General nose exam: Normal external nose present Mouth: Normal oral and palatal mucosa present and oropharynx normal Throat: Yes posterior oropharynx normal Eyes: General: appearance normal, both eyes and all related structures Neck: Other: supple Neck: Yes normal visual inspection Chest: Chest palpation & inspection: normal inspection of the chest Resp: Auscultation: clear to auscultation bilaterally Cardio: Jugular venous distension: no JVD Rate: regular rate Rhythm: regular rhythm Heart sounds: S1 normal heart sound present and S2 normal heart sound present GI: Other: right upper and right sided abdominal pain. Guarding no rebound Palpation (GI): No hepatosplenomegaly present Auscultation: normal bowel sounds : General: Yes no CVA tenderness Back/Spine/Pelvis: Back: no CVA tenderness Skin: General skin exam: no rashes or lesions noted Neuro: General: oriented to person and patient oriented x3 Cranial nerves: Yes CN's II-XII intact bilaterally Motor exam (neuro): 5/5 motor strength present throughout Sensory Exam: No Sensory deficit (Neuro) Extrem: General: Yes normal to inspection Psych: Appearance: grossly normal Course Reevaluation(s) Reevaluation #1: patient had received IV ativan and IV phenobarbital many hours ago, he feels better and does not want to wait for counseling. He says he has a program Time: 15:36 Medications Administered Discontinued Medications Generic Name Dose Route Start Last Admin Trade Name Freq PRN Reason Stop Dose Admin Lorazepam 2 mg 10/25/22 07:30 10/25/22 07:40 Lorazepam 2 Mg/Ml Vial IVPUSH 10/25/22 07:31 2 mg ONCE ONE Administration Ondansetron HCl 4 mg 10/25/22 07:28 10/25/22 07:40 Ondansetron Hcl 4 Mg/2 Ml Vial IVPUSH 10/25/22 07:29 4 mg ONCE ONE Administration Pantoprazole Sodium 40 mg 10/25/22 07:28 10/25/22 07:40 Pantoprazole Sodium 40 Mg/10 Ml Vial IVPUSH 10/25/22 07:29 40 mg ONCE ONE Administration Phenobarbital Sodium 65 mg 10/25/22 10:21 10/25/22 10:50 Phenobarbital Sodium 65 Mg/Ml Vial IVPUSH 10/25/22 10:22 65 mg ONCE ONE Administration Medical Decision Making Differential Diagnosis Differential Diagnoses: The differential diagnosis associated with the presentation includes (alcohol abuse, polysubstance abuse, alcohol withdrawal, anxiety) Admission/Observation Consideration of admission/observation: Escalation of care including admission/observation considered (Patient received IV ativan and IV phenobarbital so admission was considered) Lab Data MDM Lab Attestation statement: I reviewed the patient's lab results. 10/25/22 07:31 10/25/22 07:31 Labs: Lab Results 10/25/22 10/25/22 10/25/22 Range/Units 07:31 07:31 07:31 WBC 8.8 (4.8-10.8) X10*3/uL RBC 4.87 (4.60-5.80) X10*6/uL Hgb 15.3 (14.0-18.0) g/dl Hct 43.1 (42.0-52.0) % MCV 88.5 (80.0-98.0) fL MCH 31.4 (27.0-33.0) pg MCHC 35.5 (31.0-36.0) g/dl RDW 12.5 (11.0-16.0) % Plt Count 469 H (160-400) X10*3/uL MPV 8.4 L (9.4-12.4) fL Immature Gran % (Auto) 0.3 (0.0-0.4) % Neut % (Auto) 62.0 (45-73) % Lymph % (Auto) 25.0 (20-40) % Milam % (Auto) 7.9 (2-11) % Eos % (Auto) 3.8 (0-4) % Baso % (Auto) 1.0 (0-2) % Lymph # (Auto) 2.2 (1.2-4.9) X10*3/uL Milam # (Auto) 0.7 (0.1-1.2) X10*3/uL Eos # (Auto) 0.3 (0.0-0.4) X10*3/uL Baso # (Auto) 0.1 (0.0-0.2) X10*3/uL Abs Immat Gran (auto) 0.03 (0.00-0.03) X10*3/uL Absolute Neuts (auto) 5.4 (2.0-8.3) x10*3/uL Absolute Nucleated RBC 0.000 (0.0-0.012) X10*3/uL Nucleated RBC % (auto) 0.0 (0.0-0.2) /100WBC Sodium 140 (135-145) mmol/L Potassium 3.8 (3.3-5.1) mmol/L Chloride 106 (96-108) mmol/L Carbon Dioxide 19 L (22-29) mmol/L Anion Gap 19 (12-20) BUN 4 L (9-16) mg/dL Creatinine 0.78 (0.5-1.4) mg/dL Estim Creat Clear Calc 151.4 Estimated GFR > 60 Random Glucose 120 H (60-115) mg/dL Calcium 9.3 (8.4-10.2) mg/dL Total Bilirubin 0.6 (0.0-1.0) mg/dL Direct Bilirubin 0.2 (0.0-0.5) mg/dL AST 33 (5-37) U/L ALT 33 (0-40) U/L Alkaline Phosphatase 60 (39-117) U/L Troponin I High Sens < 3.5 (<3.5-35.0) ng/L Total Protein 7.4 (6.5-8.0) g/dL Albumin 4.5 (3.5-5.0) g/dL Lipase 14 (8-78) U/L Urine Opiates Screen (Not Detect) Urine Fentanyl Screen (Not Detect) Ur Barbiturates Screen (Not Detect) Ur Phencyclidine Scrn (Not Detect) Ur Amphetamines Screen (Not Detect) U Benzodiazepines Scrn (Not Detect) Urine Cocaine Screen (Not Detect) U Marijuana (THC) Screen (Not Detect) Ethyl Alcohol mg/dL 10/25/22 10/25/22 Range/Units 07:31 08:11 WBC (4.8-10.8) X10*3/uL RBC (4.60-5.80) X10*6/uL Hgb (14.0-18.0) g/dl Hct (42.0-52.0) % MCV (80.0-98.0) fL MCH (27.0-33.0) pg MCHC (31.0-36.0) g/dl RDW (11.0-16.0) % Plt Count (160-400) X10*3/uL MPV (9.4-12.4) fL Immature Gran % (Auto) (0.0-0.4) % Neut % (Auto) (45-73) % Lymph % (Auto) (20-40) % Milam % (Auto) (2-11) % Eos % (Auto) (0-4) % Baso % (Auto) (0-2) % Lymph # (Auto) (1.2-4.9) X10*3/uL Milam # (Auto) (0.1-1.2) X10*3/uL Eos # (Auto) (0.0-0.4) X10*3/uL Baso # (Auto) (0.0-0.2) X10*3/uL Abs Immat Gran (auto) (0.00-0.03) X10*3/uL Absolute Neuts (auto) (2.0-8.3) x10*3/uL Absolute Nucleated RBC (0.0-0.012) X10*3/uL Nucleated RBC % (auto) (0.0-0.2) /100WBC Sodium (135-145) mmol/L Potassium (3.3-5.1) mmol/L Chloride (96-108) mmol/L Carbon Dioxide (22-29) mmol/L Anion Gap (12-20) BUN (9-16) mg/dL Creatinine (0.5-1.4) mg/dL Estim Creat Clear Calc Estimated GFR Random Glucose (60-115) mg/dL Calcium (8.4-10.2) mg/dL Total Bilirubin (0.0-1.0) mg/dL Direct Bilirubin (0.0-0.5) mg/dL AST (5-37) U/L ALT (0-40) U/L Alkaline Phosphatase (39-117) U/L Troponin I High Sens (<3.5-35.0) ng/L Total Protein (6.5-8.0) g/dL Albumin (3.5-5.0) g/dL Lipase (8-78) U/L Urine Opiates Screen Not Detected (Not Detect) Urine Fentanyl Screen Not Detected (Not Detect) Ur Barbiturates Screen Not Detected (Not Detect) Ur Phencyclidine Scrn Not Detected (Not Detect) Ur Amphetamines Screen Not Detected (Not Detect) U Benzodiazepines Scrn Not Detected (Not Detect) Urine Cocaine Screen POSITIVE H (Not Detect) U Marijuana (THC) Screen Not Detected (Not Detect) Ethyl Alcohol 145 mg/dL Independent Interpretation I performed an independent interpretation of an: EKG (sinus [address] or twave changes) Social Determinants Patient?s care significantly limited by Social Determinants of Health including: Alcoholism and drug addiction in family Discharge Plan Discharge Clinical Impression: Polysubstance abuse, Alcoholism, Alcohol withdrawal Patient Disposition: Home, Self-Care Instructions: Polysubstance Abuse (ED), Alcohol Withdrawal (ED) Prescriptions: No Action milk thistle 500 mg Capsule 1,000 mg PO DAILY Rx Instructions: give with meal/snack naltrexone 50 mg tablet 1 tab PO DAILY omeprazole 20 mg Capsule,Delayed Release(Dr/Ec) 20 mg PO DAILY@0630 clonidine HCl 0.1 mg tablet 0.1 mg PO TID PRN (Reason: alcohol withdrawal) Qty: 14 0RF ondansetron HCl 4 mg tablet 4 mg PO Q6H PRN (Reason: nausea and vomiting) Qty: 14 0RF loperamide 2 mg capsule 2 mg PO Q6H PRN (Reason: loose stool) Qty: 14 0RF Referrals: Do Moody NP [Primary Care Provider] - 3 days Stand Alone Forms: Work/School Release
--- NOTE | 2022-10-25 07:27 | ECG_ITS ---
Test Reason : chest pain Blood Pressure : / mmHG Vent. Rate : 098 BPM Atrial Rate : 098 BPM P-R Int : 146 ms QRS Dur : 084 ms QT Int : 352 ms P-R-T Axes : 049 051 062 degrees QTc Int : 449 ms Normal sinus rhythm Normal ECG When compared with ECG of 13-OCT-2022 19:29, No significant change was found Referred By: Jona Sweeney Electronically Signed By:CHAO RUIZ MD
[2022-10-25 07:40] LABS: MANUAL DIFF FLAG NO
[2022-10-25] MEDS: LORazepam 2 MG/ML VIAL IVPUSH (07:40)
[2022-10-25] MEDS: ondansetron HCL 4 MG/2 ML VIAL IVPUSH (07:40)
[2022-10-25] MEDS: Pantoprazole Sodium 40 MG/10 ML VIAL IVPUSH (07:40)
[2022-10-25 07:41] LABS: Basophils Absolute Auto 0.1 X10*3/uL (0.0-0.2); Eosinophils Absolute Auto 0.3 X10*3/uL (0.0-0.4); Eosinophils Percent Auto 3.8 % (0-4); Hematocrit 43.1 % (42.0-52.0); Hemoglobin 15.3 g/dl (14.0-18.0); Imm Gran Abs Auto 0.03 X10*3/uL (0.00-0.03); Imm Gran Pct Auto 0.3 % (0.0-0.4); Lymphocytes Absolute Auto 2.2 X10*3/uL (1.2-4.9); Mean Corpuscular HGB Conc 35.5 g/dl (31.0-36.0); Mean Corpuscular Hemoglobin 31.4 pg (27.0-33.0); Mean Corpuscular Volume 88.5 fL (80.0-98.0); Mean Platelet Volume 8.4 fL (9.4-12.4); Monocytes Absolute Auto 0.7 X10*3/uL (0.1-1.2); Monocytes Percent Auto 7.9 % (2-11); Neutrophils Absolute Auto 5.4 x10*3/uL (2.0-8.3); Platelet Count 469 X10*3/uL (160-400); Red Blood Count 4.87 X10*6/uL (4.60-5.80); Red Cell Distribution Width 12.5 % (11.0-16.0); White Blood Count 8.8 X10*3/uL (4.8-10.8)
[2022-10-25 07:46] VITALS: BP 155/90; PULSE 87; RESP 16; TEMP 36.8; O2SAT 98; BMI 30.4
--- NOTE | 2022-10-25 07:47 | PC.NURSE ---
31 y/o M pw abdominal pain, difficulty breathing d/t ETOH withdrawal. pt is aox3, calm and cooperative, no hx of withdrawal seizures. pt in gown, on monitor, IV in place, fluids infusing, given IV ativan, zofran and PPI.
[2022-10-25 07:58] LABS: Ethanol 145 mg/dL
[2022-10-25 08:01] LABS: Alanine Aminotransferase 33 U/L (0-40); Albumin Level 4.5 g/dL (3.5-5.0); Alkaline Phosphatase 60 U/L (39-117); Anion Gap 19 (12-20); Aspartate Amino Transferase 33 U/L (5-37); Bilirubin Direct 0.2 mg/dL (0.0-0.5); Bilirubin Total 0.6 mg/dL (0.0-1.0); Blood Urea Nitrogen 4 mg/dL (9-16); Calcium 9.3 mg/dL (8.4-10.2); Carbon Dioxide 19 mmol/L (22-29); Chloride 106 mmol/L (96-108); Creatinine Clr Calc Pharmacy 151.4; Estimated Glomerular Filt Rate > 60; Glucose Random 120 mg/dL (60-115); Lipase 14 U/L (8-78); Potassium 3.8 mmol/L (3.3-5.1); Sodium 140 mmol/L (135-145); Total Protein 7.4 g/dL (6.5-8.0)
[2022-10-25 08:08] LABS: Troponin-I High Sensitivity < 3.5 ng/L (<3.5-35.0)
[2022-10-25 08:27] LABS: Amphetamine Screen Urine Not Detected (Not Detect); Barbiturates, Urine Not Detected (Not Detect); Benzodiazepines Screen Urine Not Detected (Not Detect); Cannabinoid Screen Urine Not Detected (Not Detect); Cocaine Screen Urine POSITIVE (Not Detect); Fentanyl, urine Not Detected (Not Detect); Opiate Screen Urine Not Detected (Not Detect); Phencyclidine Screen Urine Not Detected (Not Detect)
--- NOTE | 2022-10-25 10:31 | PC.NURSE ---
pt states he is seeing pink elephants , MD Sweeney made aware and phenobarb ordered. out of phenobarb in ED, pharmacy made aware.
[2022-10-25] MEDS: PHENobarbitaL sodium 65 MG/ML VIAL IVPUSH (10:50)
== END 2022-10-25 15:58 | disposition home or self-care (01) ==
PROVIDERS: Emergency Provider Emergency Medicine; PCP Registered Nurse
DX: F10.239 Alcohol dependence with withdrawal, unspecified (principal); Y90.6 Blood alcohol level of 120-199 mg/100 ml; R07.89 Other chest pain; R06.02 Shortness of breath; F14.10 Cocaine abuse, uncomplicated; R11.2 Nausea with vomiting, unspecified; Z79.899 Other long term (current) drug therapy; Z87.891 Personal history of nicotine dependence
CPT/HCPCS: 36415; 80048; 80076; 80307; 82077; 83690; 84484; 85025; 93005; 96374; 96375; 99284; J2060; J2405; J2560

== ENCOUNTER 2022-11-07 12:28 | Inpatient (IN) | payer OTHER, SELFPAY ==
--- NOTE | ~2022-11-07 | XR_ITS ---
EXAMINATION: XR CHEST CLINICAL INFORMATION: Short of breath COMPARISON: 10/13/2022 TECHNIQUE: Frontal view of the chest was obtained. FINDINGS: Cardiac leads overlie the chest. The lungs are well expanded. There is no focal consolidation, edema, or effusion. No pneumothorax. The cardiomediastinal silhouette is within normal limits. No acute osseous abnormality. XR/XR chest 1V IMPRESSION: Clear lungs.
[2022-11-07 12:30] VITALS: BP 142/79; PULSE 141; RESP 24; TEMP 36.7; O2SAT 100; BMI 28.8
--- NOTE | 2022-11-07 12:31 | ECG_ITS ---
Test Reason : CP, SOB Blood Pressure : / mmHG Vent. Rate : 108 BPM Atrial Rate : 108 BPM P-R Int : 152 ms QRS Dur : 088 ms QT Int : 322 ms P-R-T Axes : 053 062 033 degrees QTc Int : 431 ms Sinus tachycardia Otherwise normal ECG When compared with ECG of 25-OCT-2022 07:28, No significant change was found Referred By: Isadora Carpenter Electronically Signed By:Bernabe Mcgill
--- NOTE | 2022-11-07 12:34 | ED.ALCOHOL ---
HPI - Alcohol General Chief Complaint: ETOH/Substance Use <YOHANA Villegas - Last Filed: 11/07/22 12:35> Stated Complaint: diff breathing <YOHANA Villegas - Last Filed: 11/07/22 12:35> Time Seen by Provider: 11/07/22 12:37 <YOHANA Villegas - Last Filed: 11/07/22 12:35> Source: patient <YOHANA Monaco - Last Filed: 11/07/22 17:26> Mode of arrival: ambulatory <YOHANA Monaco - Last Filed: 11/07/22 17:26> Limitations: no limitations <YOHANA Monaco - Last Filed: 11/07/22 17:26> History of Present Illness HPI narrative: Patient is a 31 year old assigned male at with a history of alcohol abuse presenting to the emergency department today in alcohol withdrawal. Patient states that he normally drinks a lot and decided to cut back so that he could stop drinking. Patient states that he began hallucinating, confusion, and had a possible seizure. Patient states that he passed out at work and was told by a coworker when he came to that he was twitching. Patient denies any dizziness, lightheadedness, abdominal pain, nausea, vomiting, fever, chills, blurry vision, double vision, loss of vision, chest pain, difficulty breathing, shortness of breath, back pain, night sweats, pain with urination, increased urinary frequency, increased urinary urgency, blood in his urine or stool, syncope or a near syncopal episode, recent trauma or falls, bowel incontinence, bladder incontinence, bowel retention, bladder retention, or any other complaints at this time. <YOHANA Monaco - Last Filed: 11/07/22 17:26> MD complaint: alcohol withdrawal and alcohol dependence <YOHANA Monaco - Last Filed: 11/07/22 17:26> Last drink: Hours (ago) <YOHANA Monaco - Last Filed: 11/07/22 17:26> Chronic alcohol use: Yes <YOHANA Monaco - Last Filed: 11/07/22 17:26> Previous visits for alcohol intoxication: Yes <YOHANA Monaco - Last Filed: 11/07/22 17:26> Recent trauma: No <YOHANA Monaco Last Filed: 11/07/22 17:26> Treatments prior to arrival: none <YOHANA Monaco Last Filed: 11/07/22 17:26> Related Data Home Medications: Home Medications Medication Instructions Recorded Confirmed milk thistle 500 mg capsule 1,000 mg PO DAILY 08/11/22 11/07/22 naltrexone 50 mg tablet 1 tab PO DAILY 08/11/22 11/07/22 omeprazole 20 mg capsule,delayed 20 mg PO DAILY@0630 08/11/22 11/07/22 release cholecalciferol (vitamin D3) 25 25 mcg PO DAILY 11/07/22 11/07/22 mcg (1,000 unit) tablet <YOHANA Villegas - Last Filed: 11/07/22 12:35> Allergies/Adverse Reactions: Allergies Allergy/AdvReac Type Severity Reaction Status Date / Time No Known Allergies Allergy Verified 08/11/22 08:14 <YOHANA Villegas Last Filed: 11/07/22 12:35> Review of Systems Constitutional: Constitutional: Reports no additional constitutional complaints, Denies chills, Denies fever(s) and Denies night sweats <YOHANA Monaco Last Filed: 11/07/22 17:26> Eyes: Eyes: Reports no additional eye complaints, Denies blurry vision, Denies change in vision, Denies diplopia, Denies eye discharge, Denies loss of vision and Denies eye pain <YOHANA Monaco Last Filed: 11/07/22 17:26> ENT: Denies dizziness <YOHANA Monaco Last Filed: 11/07/22 17:26> Cardiovascular: Cardiovascular: Reports no additional cardiovascular complaints, Denies chest pain, Denies lightheadedness, Denies Loss of Consciousness and Denies dyspnea <YOHANA Monaco Last Filed: 11/07/22 17:26> Respiratory: Respiratory: Reports no additional respiratory complaints and Denies dyspnea <YOHANA Monaco Last Filed: 11/07/22 17:26> Gastrointestinal: Gastrointestinal: Reports no additional gastrointestinal complaints, Denies abdominal pain, Denies melena, Denies hematochezia, Denies change in bowel habits and Denies change in stool character <YOHANA Monaco - Last Filed: 11/07/22 17:26> Genitourinary: Genitourinary: Reports no additional male genitourinary complaints, Denies hematuria, Denies oliguria, Denies difficulty urinating, Denies dysuria, Denies urinary frequency, Denies urinary hesitancy, Denies urinary incontinence and Denies urinary urgency <YOHANA Monaco - Last Filed: 11/07/22 17:26> Musculoskeletal: Musculoskeletal: Reports no additional musculoskeletal complaints, Denies numbness and Denies tingling <YOHANA Monaco - Last Filed: 11/07/22 17:26> Neurologic: Reports confusion, Denies dizziness, Denies loss of vision, Denies numbness and Denies tingling <YOHANA Monaco - Last Filed: 11/07/22 17:26> Psychiatric: Psychiatric: Reports no additional psychiatric complaints, Reports confusion and Reports tactile hallucinations <YOHANA Monaco - Last Filed: 11/07/22 17:26> Endocrine: Endocrine: Reports no additional endocrine complaints <YOHANA Monaco - Last Filed: 11/07/22 17:26> Hematologic/Lymphatic: Hematologic/Lymphatic: Reports no additional hematologic/lymphatic complaints <YOHANA Monaco - Last Filed: 11/07/22 17:26> Allergic/Immunologic: Allergic/Immunologic: Reports no additional allergic/immunologic complaints <YOHANA Monaco - Last Filed: 11/07/22 17:26> PMFSH Past Medical History Attestation statement: The following information was validated with the patient. <YOHANA Monaco - Last Filed: 11/07/22 17:26> Source: old records reviewed and nursing notes reviewed <YOHANA Monaco - Last Filed: 11/07/22 17:26> Medical History: Medical History ETOH abuse No known health problems <YOHANA Villegas - Last Filed: 11/07/22 12:35> Social History Social History: Social History Household Members: Spouse and Children Housing: Apartment Do you presently have visiting nurse or other home services: No Alcohol intake: current Alcohol intake frequency: 3 or more drinks per day Alcohol type: hard liquor Patient Tobacco Use Status: Former Tobacco user Smoked in Last 30 Days: No Use of substances other than those prescribed or required for medical reasons: No Substance Use Type: Marijuana Advance Directives: No Advance Directives Information Provided: Yes <YOHANA Villegas Last Filed: 11/07/22 12:35> Physical Exam ED Vital Signs: Vital Signs - 24 hr 11/07/22 12:30 11/07/22 14:07 11/07/22 16:21 Temperature 98.0 F 98.1 F Pulse Rate 141 H 113 H 84 Respiratory Rate 24 H 23 H 22 H Blood Pressure 142/79 H 133/74 150/90 H Pulse Oximetry 100 94 98 Oxygen Delivery Method Room Air Room Air Room Air BMI result Body Mass Index 28.8 <YOHANA Villegas Last Filed: 11/07/22 12:35> Vital Signs - 24 hr 11/07/22 12:30 11/07/22 14:07 11/07/22 16:21 Temperature 98.0 F 98.1 F Pulse Rate 141 H 113 H 84 Respiratory Rate 24 H 23 H 22 H Blood Pressure 142/79 H 133/74 150/90 H Pulse Oximetry 100 94 98 Oxygen Delivery Method Room Air Room Air Room Air BMI result Body Mass Index 28.8 <YOHANA Monaco Last Filed: 11/07/22 17:26> Const General: confusion <YOHANA Monaco Last Filed: 11/07/22 17:26> Nutritional Appearance: well nourished <YOHANA Monaco Last Filed: 11/07/22 17:26> Orientation/consciousness: confusion <YOHANA Monaco Last Filed: 11/07/22 17:26> Limitations: no limitations <YOHANA Monaco Last Filed: 11/07/22 17:26> HENMT Head: Yes normal to inspection and Yes atraumatic <YOHANA Monaco Last Filed: 11/07/22 17:26> Ears: hearing grossly normal bilaterally and external ears normal <YOHANA Monaco Last Filed: 11/07/22 17:26> General nose exam: Normal external nose present, no nasal discharge noted and no epistaxis <Brigette Hays [place] - Last Filed: 11/07/22 17:26> Face and sinus: Yes normal facial exam, No abrasion and No laceration <Brigette Hays [place] - Last Filed: 11/07/22 17:26> Mouth: Normal oral and palatal mucosa present, no drooling and no muffled voice <Brigette Hays [place] - Last Filed: 11/07/22 17:26> Eyes General: appearance normal, both eyes and all related structures <Brigette Salesjeanette [place] - Last Filed: 11/07/22 17:26> Periorbital: periorbital findings normal <Brigette Hays [place] - Last Filed: 11/07/22 17:26> Eyelids: Yes eyelids normal <Brigette Salesjeanette [place] - Last Filed: 11/07/22 17:26> Conjunctivae: conjunctivae normal <Brigette Salesjeanette [place] - Last Filed: 11/07/22 17:26> Pupils: Equal, round and reactive pupils present <Brigette Salesjeanette [place] - Last Filed: 11/07/22 17:26> EOM: EOMs intact bilaterally <Brigette Salesjeanette [place] - Last Filed: 11/07/22 17:26> Neck Neck: Yes normal visual inspection, Yes full ROM and Yes no lymphadenopathy <Brigette Salesjeanette [place] - Last Filed: 11/07/22 17:26> Chest Chest palpation & inspection: normal inspection of the chest <Brigette Salesjeanette [place] - Last Filed: 11/07/22 17:26> Resp Effort & Inspection: normal respiratory effort and able to speak in complete sentences <Brigette Salesjeanette [place] - Last Filed: 11/07/22 17:26> Cardio Rate: tachycardic <Brigette Salesjeanette [place] - Last Filed: 11/07/22 17:26> Rhythm: regular rhythm <Brigette Salesjeanette [place] - Last Filed: 11/07/22 17:26> GI Inspection: Yes normal to inspection <Brigette Salesjeanette [place] - Last Filed: 11/07/22 17:26> Palpation (GI): Soft to palpation, not firm, nontender and no guarding <Brigette Saúl [place] - Last Filed: 11/07/22 17:26> Neuro General: confusion <Brigette SalesYOHANA reid - Last Filed: 11/07/22 17:26> Cranial nerves: Yes Equal, round and reactive pupils present <Brigette SalesYOHANA reid - Last Filed: 11/07/22 17:26> Cognition (Neuro): normal cognition <Brigette SalesYOHANA reid - Last Filed: 11/07/22 17:26> Motor exam (neuro): 5/5 motor strength present throughout <Brigettechuy SalesYOHANA reid - Last Filed: 11/07/22 17:26> Sensory Exam: Normal double simultaneous stimulation for sensation <Brigette SalesYOHANA reid - Last Filed: 11/07/22 17:26> Coordination: [id number] test normal <Brigettechuy SalesYOHANA reid - Last Filed: 11/07/22 17:26> Extrem General: Yes normal to inspection, Yes full ROM and Yes capillary refill normal <Brigette SalesYOHANA reid - Last Filed: 11/07/22 17:26> Psych Appearance: grossly normal <YOHANA Monaco - Last Filed: 11/07/22 17:26> Mental Status: mental status grossly normal <Brigettechuy SalesYOHANA reid - Last Filed: 11/07/22 17:26> Affect: normal affect <Brigette HaysYOHANA reid - Last Filed: 11/07/22 17:26> Attitude: cooperative <Brigettechuy SalesYOHANA reid - Last Filed: 11/07/22 17:26> Thought process: Normal thought process present <YOHANA Monaco - Last Filed: 11/07/22 17:26> Thought content: Normal thought content present <YOHANA Monaco - Last Filed: 11/07/22 17:26> Insight: Good insight present (Psych) <YOHANA Monaco - Last Filed: 11/07/22 17:26> Course Course Course Narrative: RME - 31 yo male with history of ETOH abuse/dependence presenting to the ER for evaluation of SOB, chest pains, hallucinations, weakness and body cramping that started a few days ago and got acutely worse today. Has been trying to detox from alcohol at home. He reports 2nd day with ETOH he has visual hallucinations. Arrives to triage. diaphoretic, tachypneic, tachycardic. To go back to treatment room now. IM ativan ordered for now. Needs IV and labs. Will require admission <YOHANA Villegas - Last Filed: 11/07/22 12:35> Medical Decision Making Medical Decision Making [facility] Narrative: Patient is a 31 year old assigned male at with a history of alcohol abuse presenting to the emergency department today in acute alcohol withdrawal. Patient's physical exam showed tachycardia and an individual obviously in alcohol withdrawal. Patient's blood work showed a slightly elevated WBC count and gap but was otherwise unremarkable. Patient's urine showed no acute process. Patient's EKG showed sinus tachycardia. Patient's chest x-ray showed no acute process. I started the patient on the phenobarb protocol for alcohol withdrawal. I spoke to the hospitalist team who agreed to admission. I explained my physical exam findings as well as all test results to the patient. I answered all questions asked by the patient. Patient verbalized agreement and understanding with this treatment plan and admission. 1712: Patient spoke to the hospitalist team and expressed he would rather leave against medical advice to save his job. I explained, in great detail, that it is illegal to be fired for a hospitalization however, the patient was adamant that he wanted to leave. I explained the risk of , permanent disability, decreased quality of life, and all other risks associated with leaving against medical advice. Patient verbalized understanding and continued to request to leave against medical advice. 1726: Patient has changed his mind and would like to stay. Hospitalist team informed. <YOHANA Monaco - Last Filed: 11/07/22 17:26> Differential Diagnosis Differential Diagnoses: The differential diagnosis associated with the presentation includes <YOHANA Monaco Last Filed: 11/07/22 17:26> alcohol withdrawal <YOHANA Monaco - Last Filed: 11/07/22 17:26> Consult Healthcare Provider Management of the patient was discussed with: Hospitalist (agreed to admission) <YOHANA Monaco Last Filed: 11/07/22 17:26> Lab Data [facility] Lab Attestation statement: I reviewed the patient's lab results. <YOHANA Monaco Last Filed: 11/07/22 17:26> Result Diagrams: 11/07/22 12:38 11/07/22 12:38 <YOHANA Villegas - Last Filed: 11/07/22 12:35> Labs: Lab Results 11/07/22 11/07/22 11/07/22 Range/Units 12:38 12:38 12:38 WBC 12.9 H (4.8-10.8) X10*3/uL RBC 5.42 (4.60-5.80) X10*6/uL Hgb 17.0 (14.0-18.0) g/dl Hct 48.3 (42.0-52.0) % MCV 89.1 (80.0-98.0) fL MCH 31.4 (27.0-33.0) pg MCHC 35.2 (31.0-36.0) g/dl RDW 12.3 (11.0-16.0) % Plt Count 534 H (160-400) X10*3/uL MPV 8.9 L (9.4-12.4) fL Immature Gran % (Auto) 0.3 (0.0-0.4) % Neut % (Auto) 69.0 (45-73) % Lymph % (Auto) 21.4 (20-40) % Newberry % (Auto) 8.5 (2-11) % Eos % (Auto) 0.3 (0-4) % Baso % (Auto) 0.5 (0-2) % Lymph # (Auto) 2.8 (1.2-4.9) X10*3/uL Newberry # (Auto) 1.1 (0.1-1.2) X10*3/uL Eos # (Auto) 0.0 (0.0-0.4) X10*3/uL Baso # (Auto) 0.1 (0.0-0.2) X10*3/uL Abs Immat Gran (auto) 0.04 H (0.00-0.03) X10*3/uL Absolute Neuts (auto) 8.9 H (2.0-8.3) x10*3/uL Absolute Nucleated RBC 0.000 (0.0-0.012) X10*3/uL Nucleated RBC % (auto) 0.0 (0.0-0.2) /100WBC Sodium 138 (135-145) mmol/L Potassium 3.6 (3.3-5.1) mmol/L Chloride 95 L (96-108) mmol/L Carbon Dioxide 23 (22-29) mmol/L Anion Gap 24 H (12-20) BUN 5 L (9-16) mg/dL Creatinine 1.00 (0.5-1.4) mg/dL Estim Creat Clear Calc 115.3 Estimated GFR > 60 Random Glucose 108 (60-115) mg/dL Calcium 10.9 H D (8.4-10.2) mg/dL Magnesium 2.2 (1.6-2.6) mg/dL Total Bilirubin 0.8 (0.0-1.0) mg/dL Direct Bilirubin 0.2 (0.0-0.5) mg/dL AST 35 (5-37) U/L ALT 35 (0-40) U/L Alkaline Phosphatase 76 (39-117) U/L Troponin I High Sens < 3.5 (<3.5-35.0) ng/L Total Protein 8.4 H (6.5-8.0) g/dL Albumin 5.0 (3.5-5.0) g/dL Urine Color Urine Appearance Urine pH (5.0-9.0) Ur Specific [place] (1.005-1.025) Urine Protein (Neg-Trace) mg/dL Urine Glucose (UA) (Negative) mg/dL Urine Ketones (Negative) mg/dL Urine Blood (Negative) Urine Nitrite (Negative) Ur Leukocyte Esterase (Negative) Urine Opiates Screen (Not Detect) Urine Fentanyl Screen (Not Detect) Ur Barbiturates Screen (Not Detect) Ur Phencyclidine Scrn (Not Detect) Ur Amphetamines Screen (Not Detect) U Benzodiazepines Scrn (Not Detect) Urine Cocaine Screen (Not Detect) U Marijuana (THC) Screen (Not Detect) Ethyl Alcohol 65 mg/dL COVID-19 (ELIE) (Negative) COVID-19 Clin Com 11/07/22 11/07/22 11/07/22 Range/Units 12:38 16:18 16:18 WBC (4.8-10.8) X10*3/uL RBC (4.60-5.80) X10*6/uL Hgb (14.0-18.0) g/dl Hct (42.0-52.0) % MCV (80.0-98.0) fL MCH (27.0-33.0) pg MCHC (31.0-36.0) g/dl RDW (11.0-16.0) % Plt Count (160-400) X10*3/uL MPV (9.4-12.4) fL Immature Gran % (Auto) (0.0-0.4) % Neut % (Auto) (45-73) % Lymph % (Auto) (20-40) % Newberry % (Auto) (2-11) % Eos % (Auto) (0-4) % Baso % (Auto) (0-2) % Lymph # (Auto) (1.2-4.9) X10*3/uL Newberry # (Auto) (0.1-1.2) X10*3/uL Eos # (Auto) (0.0-0.4) X10*3/uL Baso # (Auto) (0.0-0.2) X10*3/uL Abs Immat Gran (auto) (0.00-0.03) X10*3/uL Absolute Neuts (auto) (2.0-8.3) x10*3/uL Absolute Nucleated RBC (0.0-0.012) X10*3/uL Nucleated RBC % (auto) (0.0-0.2) /100WBC Sodium (135-145) mmol/L Potassium (3.3-5.1) mmol/L Chloride (96-108) mmol/L Carbon Dioxide (22-29) mmol/L Anion Gap (12-20) BUN (9-16) mg/dL Creatinine (0.5-1.4) mg/dL Estim Creat Clear Calc Estimated GFR Random Glucose (60-115) mg/dL Calcium (8.4-10.2) mg/dL Magnesium (1.6-2.6) mg/dL Total Bilirubin (0.0-1.0) mg/dL Direct Bilirubin (0.0-0.5) mg/dL AST (5-37) U/L ALT (0-40) U/L Alkaline Phosphatase (39-117) U/L Troponin I High Sens (<3.5-35.0) ng/L Total Protein (6.5-8.0) g/dL Albumin (3.5-5.0) g/dL Urine Color Yellow Urine Appearance Turbid Urine pH 8.5 (5.0-9.0) Ur Specific [place] <= 1.005 (1.005-1.025) Urine Protein Negative (Neg-Trace) mg/dL Urine Glucose (UA) Negative (Negative) mg/dL Urine Ketones Negative (Negative) mg/dL Urine Blood Negative (Negative) Urine Nitrite Negative (Negative) Ur Leukocyte Esterase Negative (Negative) Urine Opiates Screen Not Detected (Not Detect) Urine Fentanyl Screen Not Detected (Not Detect) Ur Barbiturates Screen POSITIVE H (Not Detect) Ur Phencyclidine Scrn Not Detected (Not Detect) Ur Amphetamines Screen Not Detected (Not Detect) U Benzodiazepines Scrn Not Detected (Not Detect) Urine Cocaine Screen Not Detected (Not Detect) U Marijuana (THC) Screen POSITIVE H (Not Detect) Ethyl Alcohol mg/dL COVID-19 (ELIE) Negative (Negative) COVID-19 Clin Com See Note <YOHANA Villegas - Last Filed: 11/07/22 12:35> Lab Results 11/07/22 11/07/22 11/07/22 Range/Units 12:38 12:38 12:38 WBC 12.9 H (4.8-10.8) X10*3/uL RBC 5.42 (4.60-5.80) X10*6/uL Hgb 17.0 (14.0-18.0) g/dl Hct 48.3 (42.0-52.0) % MCV 89.1 (80.0-98.0) fL MCH 31.4 (27.0-33.0) pg MCHC 35.2 (31.0-36.0) g/dl RDW 12.3 (11.0-16.0) % Plt Count 534 H (160-400) X10*3/uL MPV 8.9 L (9.4-12.4) fL Immature Gran % (Auto) 0.3 (0.0-0.4) % Neut % (Auto) 69.0 (45-73) % Lymph % (Auto) 21.4 (20-40) % Newberry % (Auto) 8.5 (2-11) % Eos % (Auto) 0.3 (0-4) % Baso % (Auto) 0.5 (0-2) % Lymph # (Auto) 2.8 (1.2-4.9) X10*3/uL Newberry # (Auto) 1.1 (0.1-1.2) X10*3/uL Eos # (Auto) 0.0 (0.0-0.4) X10*3/uL Baso # (Auto) 0.1 (0.0-0.2) X10*3/uL Abs Immat Gran (auto) 0.04 H (0.00-0.03) X10*3/uL Absolute Neuts (auto) 8.9 H (2.0-8.3) x10*3/uL Absolute Nucleated RBC 0.000 (0.0-0.012) X10*3/uL Nucleated RBC % (auto) 0.0 (0.0-0.2) /100WBC Sodium 138 (135-145) mmol/L Potassium 3.6 (3.3-5.1) mmol/L Chloride 95 L (96-108) mmol/L Carbon Dioxide 23 (22-29) mmol/L Anion Gap 24 H (12-20) BUN 5 L (9-16) mg/dL Creatinine 1.00 (0.5-1.4) mg/dL Estim Creat Clear Calc 115.3 Estimated GFR > 60 Random Glucose 108 (60-115) mg/dL Calcium 10.9 H D (8.4-10.2) mg/dL Magnesium 2.2 (1.6-2.6) mg/dL Total Bilirubin 0.8 (0.0-1.0) mg/dL Direct Bilirubin 0.2 (0.0-0.5) mg/dL AST 35 (5-37) U/L ALT 35 (0-40) U/L Alkaline Phosphatase 76 (39-117) U/L Troponin I High Sens < 3.5 (<3.5-35.0) ng/L Total Protein 8.4 H (6.5-8.0) g/dL Albumin 5.0 (3.5-5.0) g/dL Urine Color Urine Appearance Urine pH (5.0-9.0) Ur Specific [place] (1.005-1.025) Urine Protein (Neg-Trace) mg/dL Urine Glucose (UA) (Negative) mg/dL Urine Ketones (Negative) mg/dL Urine Blood (Negative) Urine Nitrite (Negative) Ur Leukocyte Esterase (Negative) Urine Opiates Screen (Not Detect) Urine Fentanyl Screen (Not Detect) Ur Barbiturates Screen (Not Detect) Ur Phencyclidine Scrn (Not Detect) Ur Amphetamines Screen (Not Detect) U Benzodiazepines Scrn (Not Detect) Urine Cocaine Screen (Not Detect) U Marijuana (THC) Screen (Not Detect) Ethyl Alcohol 65 mg/dL COVID-19 (ELIE) (Negative) COVID-19 Clin Com 11/07/22 11/07/22 11/07/22 Range/Units 12:38 16:18 16:18 WBC (4.8-10.8) X10*3/uL RBC (4.60-5.80) X10*6/uL Hgb (14.0-18.0) g/dl Hct (42.0-52.0) % MCV (80.0-98.0) fL MCH (27.0-33.0) pg MCHC (31.0-36.0) g/dl RDW (11.0-16.0) % Plt Count (160-400) X10*3/uL MPV (9.4-12.4) fL Immature Gran % (Auto) (0.0-0.4) % Neut % (Auto) (45-73) % Lymph % (Auto) (20-40) % Newberry % (Auto) (2-11) % Eos % (Auto) (0-4) % Baso % (Auto) (0-2) % Lymph # (Auto) (1.2-4.9) X10*3/uL Newberry # (Auto) (0.1-1.2) X10*3/uL Eos # (Auto) (0.0-0.4) X10*3/uL Baso # (Auto) (0.0-0.2) X10*3/uL Abs Immat Gran (auto) (0.00-0.03) X10*3/uL Absolute Neuts (auto) (2.0-8.3) x10*3/uL Absolute Nucleated RBC (0.0-0.012) X10*3/uL Nucleated RBC % (auto) (0.0-0.2) /100WBC Sodium (135-145) mmol/L Potassium (3.3-5.1) mmol/L Chloride (96-108) mmol/L Carbon Dioxide (22-29) mmol/L Anion Gap (12-20) BUN (9-16) mg/dL Creatinine (0.5-1.4) mg/dL Estim Creat Clear Calc Estimated GFR Random Glucose (60-115) mg/dL Calcium (8.4-10.2) mg/dL Magnesium (1.6-2.6) mg/dL Total Bilirubin (0.0-1.0) mg/dL Direct Bilirubin (0.0-0.5) mg/dL AST (5-37) U/L ALT (0-40) U/L Alkaline Phosphatase (39-117) U/L Troponin I High Sens (<3.5-35.0) ng/L Total Protein (6.5-8.0) g/dL Albumin (3.5-5.0) g/dL Urine Color Yellow Urine Appearance Turbid Urine pH 8.5 (5.0-9.0) Ur Specific [place] <= 1.005 (1.005-1.025) Urine Protein Negative (Neg-Trace) mg/dL Urine Glucose (UA) Negative (Negative) mg/dL Urine Ketones Negative (Negative) mg/dL Urine Blood Negative (Negative) Urine Nitrite Negative (Negative) Ur Leukocyte Esterase Negative (Negative) Urine Opiates Screen Not Detected (Not Detect) Urine Fentanyl Screen Not Detected (Not Detect) Ur Barbiturates Screen POSITIVE H (Not Detect) Ur Phencyclidine Scrn Not Detected (Not Detect) Ur Amphetamines Screen Not Detected (Not Detect) U Benzodiazepines Scrn Not Detected (Not Detect) Urine Cocaine Screen Not Detected (Not Detect) U Marijuana (THC) Screen POSITIVE H (Not Detect) Ethyl Alcohol mg/dL COVID-19 (ELIE) Negative (Negative) COVID-19 Clin Com See Note <YOHANA Monaco - Last Filed: 11/07/22 17:26> Independent Interpretation I performed an independent interpretation of an: EKG <YOHANA Monaco - Last Filed: 11/07/22 17:26> Interpretation: Vent. Rate: 108 BPM ? ? Atrial Rate: 108 BPM P-R Int: 152 ms? QRS Dur: 088 ms QT Int: 322 ms ? ? ? P-R-T Axes: 053 062 033 degrees QTc Int: 431 ms ? Sinus tachycardia Otherwise normal ECG When compared with ECG of 25-OCT-2022 07:28, No significant change was found DD/ [id number] <YOHANA Monaco - Last Filed: 11/07/22 17:26> Radiology Impression Radiologist Impression: My interpretation is in agreement with the radiologist's impression of this imaging study. EXAMINATION: XR CHEST CLINICAL INFORMATION: Short of breath COMPARISON: 10/13/2022 TECHNIQUE: Frontal view of the chest was obtained. FINDINGS: Cardiac leads overlie the chest. The lungs are well expanded. There is no focal consolidation, edema, or effusion. No pneumothorax. The cardiomediastinal silhouette is within normal limits. No acute osseous abnormality. XR/XR chest 1V IMPRESSION: Clear lungs. ? Dictated By: Al Copeland MD Signed By: Electronically signed by Al Copeland MD 11/07/22 1337 <YOHANA Monaco - Last Filed: 11/07/22 17:26> Medications Administered Generic Name Dose Route Start Last Admin Trade Name Freq PRN Reason Stop Dose Admin Phenobarbital Sodium 247 mg 11/07/22 16:00 11/07/22 16:15 Phenobarbital Sodium 130 Mg/Ml Vial Im Q3hx2 IM 11/07/22 19:01 247 mg Q3H EL Administration Protocol Discontinued Medications Generic Name Dose Route Start Last Admin Trade Name Freq PRN Reason Stop Dose Admin Sodium Chloride 1,000 mls @ 999 mls/hr 11/07/22 12:45 11/07/22 13:44 Ns IVCONT 11/07/22 13:45 Infused .Q1H1M EL Infusion Magnesium Sulfate 2 gm in 50 mls @ 25 mls/hr 11/07/22 12:32 11/07/22 14:43 Magnesium Sulfate/H2o IV 11/07/22 14:31 Infused ONCE ONE Infusion Lorazepam 2 mg 11/07/22 12:33 11/07/22 12:43 Lorazepam 2 Mg/Ml Vial IM 11/07/22 12:34 2 mg STAT STA Administration Phenobarbital Sodium 328.9 mg 11/07/22 13:00 11/07/22 13:01 Phenobarbital Sodium 130 Mg/Ml Im Once IM 11/07/22 13:01 328.9 mg ONCE ONE Administration Protocol <YOHANA Villegas - Last Filed: 11/07/22 12:35> Medications Administered Generic Name Dose Route Start Last Admin Trade Name Freq PRN Reason Stop Dose Admin Phenobarbital Sodium 247 mg 11/07/22 16:00 11/07/22 16:15 Phenobarbital Sodium 130 Mg/Ml Vial Im Q3hx2 IM 11/07/22 19:01 247 mg Q3H EL Administration Protocol Discontinued Medications Generic Name Dose Route Start Last Admin Trade Name Freq PRN Reason Stop Dose Admin Sodium Chloride 1,000 mls @ 999 mls/hr 11/07/22 12:45 11/07/22 13:44 Ns IVCONT 11/07/22 13:45 Infused .Q1H1M EL Infusion Magnesium Sulfate 2 gm in 50 mls @ 25 mls/hr 11/07/22 12:32 11/07/22 14:43 Magnesium Sulfate/H2o IV 11/07/22 14:31 Infused ONCE ONE Infusion Lorazepam 2 mg 11/07/22 12:33 11/07/22 12:43 Lorazepam 2 Mg/Ml Vial IM 11/07/22 12:34 2 mg STAT STA Administration Phenobarbital Sodium 328.9 mg 11/07/22 13:00 11/07/22 13:01 Phenobarbital Sodium 130 Mg/Ml Im Once IM 11/07/22 13:01 328.9 mg ONCE ONE Administration Protocol <YOHANA Monaco - Last Filed: 11/07/22 17:26> Critical Care Time Critical Care Time Critical Care Time: Yes <YOHANA Monaco - Last Filed: 11/07/22 17:26> Total Critical Care Time: 30 <YOHANA Monaco - Last Filed: 11/07/22 17:26> Attestation: I spent 30 minutes of Critical Care Time with this patient. This does not include time spent on separately reported billable procedures. <YOHANA Monaco - Last Filed: 11/07/22 17:26> Discharge Plan Discharge Clinical Impression: Alcohol withdrawal syndrome <YOHANA Villegas - Last Filed: 11/07/22 12:35> Patient Disposition: Admitted As Inpatient <YOHANA Villegas - Last Filed: 11/07/22 12:35>
[2022-11-07] MEDS: Magnesium Sulfate/H2O 2 GM/50 ML PIGGYBACK IV (12:43)
[2022-11-07] MEDS: 0.9 % Sodium Chloride 1,000 ML 999 ML IVCONT (12:43)
[2022-11-07] MEDS: LORazepam 2 MG/ML VIAL IM (12:43)
[2022-11-07 12:56] LABS: MANUAL DIFF FLAG NO
[2022-11-07 12:59] LABS: Basophils Absolute Auto 0.1 X10*3/uL (0.0-0.2); Basophils Percent Auto 0.5 % (0-2); Eosinophils Percent Auto 0.3 % (0-4); Hematocrit 48.3 % (42.0-52.0); Imm Gran Abs Auto 0.04 X10*3/uL (0.00-0.03); Imm Gran Pct Auto 0.3 % (0.0-0.4); Lymphocytes Absolute Auto 2.8 X10*3/uL (1.2-4.9); Lymphocytes Percent Auto 21.4 % (20-40); Mean Corpuscular HGB Conc 35.2 g/dl (31.0-36.0); Mean Corpuscular Hemoglobin 31.4 pg (27.0-33.0); Mean Corpuscular Volume 89.1 fL (80.0-98.0); Mean Platelet Volume 8.9 fL (9.4-12.4); Monocytes Absolute Auto 1.1 X10*3/uL (0.1-1.2); Monocytes Percent Auto 8.5 % (2-11); Neutrophils Absolute Auto 8.9 x10*3/uL (2.0-8.3); Platelet Count 534 X10*3/uL (160-400); Red Blood Count 5.42 X10*6/uL (4.60-5.80); Red Cell Distribution Width 12.3 % (11.0-16.0); White Blood Count 12.9 X10*3/uL (4.8-10.8)
[2022-11-07] MEDS: PHENobarbitaL sodium 130 MG/ML IM ONCE 328.9 MG IM (13:01)
--- NOTE | 2022-11-07 13:05 | PHA.MEDREC ---
Pharmacy Consult ? Medication Reconciliation Pharmacy has completed the medication reconciliation. Patient reported all medications, reports he ran out of naltrexone tried to get more but unsure if it was approved. Quiana Hardy, YoniD
[2022-11-07 13:31] LABS: COVID-19 Test Negative (Negative); IDNOW Serial# 55D5AD1C
[2022-11-07 14:07] VITALS: BP 133/74; PULSE 113; RESP 23; O2SAT 94
[2022-11-07 14:17] LABS: Alanine Aminotransferase 35 U/L (0-40); Alkaline Phosphatase 76 U/L (39-117); Anion Gap 24 (12-20); Aspartate Amino Transferase 35 U/L (5-37); Bilirubin Direct 0.2 mg/dL (0.0-0.5); Bilirubin Total 0.8 mg/dL (0.0-1.0); Blood Urea Nitrogen 5 mg/dL (9-16); Calcium 10.9 mg/dL (8.4-10.2); Carbon Dioxide 23 mmol/L (22-29); Chloride 95 mmol/L (96-108); Creatinine Clr Calc Pharmacy 115.3; Estimated Glomerular Filt Rate > 60; Ethanol 65 mg/dL; Glucose Random 108 mg/dL (60-115); Magnesium 2.2 mg/dL (1.6-2.6); Potassium 3.6 mmol/L (3.3-5.1); Sodium 138 mmol/L (135-145); Total Protein 8.4 g/dL (6.5-8.0)
[2022-11-07 14:28] LABS: Troponin-I High Sensitivity < 3.5 ng/L (<3.5-35.0)
--- NOTE | 2022-11-07 16:03 | PHA.MEDREC ---
Pharmacy Consult ? Medication Reconciliation Patient states he was on lorazepam 0.5 mg tid prn alcohol withdrawal around October 15 2022 . He also was taking prn TUMS. Pharmacy has completed the medication reconciliation.
[2022-11-07] MEDS: PHENobarbitaL sodium 130 MG/ML VIAL IM Q3Hx2 247 MG IM ×2 (16:15→19:36)
[2022-11-07 16:21] VITALS: BP 150/90; PULSE 84; RESP 22; TEMP 36.7; O2SAT 98
--- NOTE | 2022-11-07 16:26 | PM.IMHP ---
History of Present Illness Date of Service: 11/07/22 Attending physician on admission: Júnior Ferguson Chief Complaint: etoh withdrawal 31-year-old male with history of GERD and alcohol dependence with history of alcohol withdrawal seizure presented to the ED earlier this morning for evaluation of alcohol withdrawal. He states that he has a history of heavy alcohol use and for the last 7 days has been bingeing on 24-25 24 oz mixed cocktail beverages. He has been desiring detox so did not consume any alcohol when he woke up this morning. Upon arriving to work, he reports experiencing auditory and visual hallucinations with paranoia, tremors, and had an unwitnessed syncopal episode (?seizure of unknown duration PMFSH Medical History ETOH abuse No known health problems Social History Household Members: Spouse and Children Housing: Apartment Do you presently have visiting nurse or other home services: No Alcohol intake: current Alcohol intake frequency: 3 or more drinks per day Alcohol type: hard liquor Patient Tobacco Use Status: Former Tobacco user Smoked in Last 30 Days: No Use of substances other than those prescribed or required for medical reasons: No Substance Use Type: Marijuana Advance Directives: No Advance Directives Information Provided: Yes Meds Allergies Allergy/AdvReac Type Severity Reaction Status Date / Time No Known Allergies Allergy Verified 08/11/22 08:14 Active Medications: Current Medications Acetaminophen (Acetaminophen 325 Mg Tablet) 650 mg PO Q6H PRN PRN Reason: Pain, Mild (Pain Scale 1-3) Docusate Sodium (Docusate Sodium 100 Mg Capsule) 100 mg PO DAILY PRN PRN Reason: Constipation Enoxaparin Sodium (Enoxaparin Sodium 40 Mg/0.4 Ml Syringe) 40 mg SUBCUT Q24H EL Ondansetron HCl (Ondansetron Hcl 4 Mg/2 Ml Vial) 4 mg IVPUSH Q8H PRN PRN Reason: Nausea and Vomiting Pharmacy Consult (Consult Rx Etoh Phenob Im/Po) 1 each MISCELLANE ONCE PRN; Protocol PRN Reason: Consult order Pharmacy Consult (Consult Rx Perform Med Rec) 1 each MISCELLANE ONCE PRN PRN Reason: Consult order Phenobarbital (Phenobarbital 15 Mg Tablet) 45 mg PO BID EL; Protocol Stop: 11/09/22 21:01 Phenobarbital (Phenobarbital 30 Mg Tablet) 30 mg PO BID EL; Protocol Stop: 11/11/22 21:01 Phenobarbital (Phenobarbital 15 Mg Tablet) 15 mg PO DAILY EL; Protocol Stop: 11/13/22 09:01 Phenobarbital Sodium (Phenobarbital Sodium 130 Mg/Ml Vial Im Q3hx2) 247 mg IM Q3H EL; Protocol Stop: 11/07/22 19:01 Last Admin: 11/07/22 16:15 Dose: 247 mg Home Medications Medication Instructions Recorded Confirmed Last Taken Type milk thistle 500 mg capsule 1,000 mg PO DAILY 08/11/22 11/07/22 Unknown History naltrexone 50 mg tablet 1 tab PO DAILY 08/11/22 11/07/22 2 Weeks Ago History ~10/24/22 omeprazole 20 mg capsule,delayed 20 mg PO DAILY@0630 08/11/22 11/07/22 Unknown History release cholecalciferol (vitamin D3) 25 25 mcg PO DAILY 11/07/22 11/07/22 Unknown History mcg (1,000 unit) tablet Physical Exam Vital Signs and Narrative: Vital Signs: Last Vital Signs Temp 98.1 F 11/07/22 16:21 Pulse 84 11/07/22 16:21 Resp 22 H 11/07/22 16:21 BP 150/90 H 11/07/22 16:21 Pulse Ox 98 11/07/22 16:21 O2 Del Method Room Air 11/07/22 16:21 BMI result Body Mass Index 28.8 Results Labs 11/07/22 12:38 11/07/22 12:38 Labs: Laboratory Results - last 24 hr 11/07/22 11/07/22 11/07/22 12:38 12:38 12:38 MCV 89.1 MCH 31.4 MCHC 35.2 RDW 12.3 Plt Count 534 H MPV 8.9 L Immature Gran % (Auto) 0.3 Neut % (Auto) 69.0 Lymph % (Auto) 21.4 [place] % (Auto) 8.5 Eos % (Auto) 0.3 Baso % (Auto) 0.5 Lymph # (Auto) 2.8 [place] # (Auto) 1.1 Eos # (Auto) 0.0 Baso # (Auto) 0.1 Abs Immat Gran (auto) 0.04 H Absolute Neuts (auto) 8.9 H Absolute Nucleated RBC 0.000 Nucleated RBC % (auto) 0.0 Anion Gap 24 H Estim Creat Clear Calc 115.3 Estimated GFR > 60 Random Glucose 108 Calcium 10.9 H D Magnesium 2.2 Total Bilirubin 0.8 Direct Bilirubin 0.2 AST 35 ALT 35 Alkaline Phosphatase 76 Troponin I High Sens < 3.5 Total Protein 8.4 H Albumin 5.0 Ethyl Alcohol 65 COVID-19 (ELIE) COVID-19 Clin Com 11/07/22 12:38 MCV MCH MCHC RDW Plt Count MPV Immature Gran % (Auto) Neut % (Auto) Lymph % (Auto) [place] % (Auto) Eos % (Auto) Baso % (Auto) Lymph # (Auto) [place] # (Auto) Eos # (Auto) Baso # (Auto) Abs Immat Gran (auto) Absolute Neuts (auto) Absolute Nucleated RBC Nucleated RBC % (auto) Anion Gap Estim Creat Clear Calc Estimated GFR Random Glucose Calcium Magnesium Total Bilirubin Direct Bilirubin AST ALT Alkaline Phosphatase Troponin I High Sens Total Protein Albumin Ethyl Alcohol COVID-19 (ELIE) Negative COVID-19 Clin Com See Note Imaging Radiologist's Impressions: Impressions Chest X-Ray 11/07/22 13:05 IMPRESSION: Clear lungs. Assessment and Plan Time Spent With Patient Time: Total time managing care of this patient today ____ minutes. Quality VTE VTE Risk Level:: Medical - moderate - high VTE Device Contraindication: Treatment Not Indicated VTE Drug Contraindication: N/A - Med Ordered
[2022-11-07 16:27] LABS: Appearance Urine Turbid; Color Urine Yellow; Glucose Urine UA Negative (Negative); Leukocyte Esterase Urine Negative (Negative); Nitrite Urine Negative (Negative); PH 8.5 (5.0-9.0); Specific Gravity - Urine <= 1.005 (1.005-1.025); Urine Blood Negative (Negative); Urine Ketones Negative (Negative); Urine Protein Negative (Neg-Trace)
[2022-11-07 16:41] LABS: Amphetamine Screen Urine Not Detected (Not Detect); Barbiturates, Urine POSITIVE (Not Detect); Benzodiazepines Screen Urine Not Detected (Not Detect); Cannabinoid Screen Urine POSITIVE (Not Detect); Cocaine Screen Urine Not Detected (Not Detect); Fentanyl, urine Not Detected (Not Detect); Opiate Screen Urine Not Detected (Not Detect); Phencyclidine Screen Urine Not Detected (Not Detect)
--- NOTE | 2022-11-07 16:59 | MHC.CM.ED ---
CM met with patient at request of Brigette MULLER. Pt being admitted for ETOH withdrawal. Refusing admission. business process specialist suggesting discharge with [facility]. Provider feels patient needs admission. Provider not comfortable ordering medication for withdrawal at home. CM met with Jack. Pt is receptive to conversation. States is to start Outpatient program next week. Is worried about his job. 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 [facility] many employees have been let go. CM explained that if provider believes patient needs admission for withdrawal, then it's important for him to stay. Pt concerned about his family. CM explained that if he goes home without treatment, there is a risk of seizure and worsening withdrawal or that he will start drinking again, to stop withdrawal. Either options is not in his best interest. Pt will consider options. Provider aware. CM will check in with patient in 30 minutes for his decision.
--- NOTE | 2022-11-07 17:42 | PM.IMHP ---
History of Present Illness Date of Service: 11/07/22 Attending physician on admission: Júnior [facility] Chief Complaint: etoh w/d, ?seizure 31-year-old male with history of alcohol dependence, history of alcohol withdrawal seizure, and GERD presented to the ED earlier today for evaluation of alcohol withdrawal. The patient states he has a history of heavy alcohol consumption and for the last 7 days has been bingeing on alcohol consuming 24-25 24 oz cans of a mixed cocktail and decided to try to cut back today. He states he did not consume any alcohol upon waking which he typically does and presented to work. He reports paranoia, auditory and visual hallucinations, nausea, vomiting, and an episode where he ?passed out? for an unspecified period of time which was unwitnessed. He did experience confusion upon waking. He states he did try to consume more alcohol due to his symptoms, but was unable to tolerate them d/t n/v. He had previously been taking naltrexone but has been without the medication for about 1 month. He does desire detox. He does report depressive symptoms and significant anxiety as well but denies any SI/HI. On arrival, patient found to be tachycardic to 141, tachypneic to 24, vital signs otherwise stable. Hematology studies significant for reactive leukocytosis of 12.9. Renal function baseline, electrolyte levels WNL. UA unremarkable. Urine tox screen positive for barbiturates (collected after phenobarbital administration) and THC. Ethyl alcohol level 65. CXR negative. EKG showing sinus tachycardia, rate 108, no ST/T-wave abnormality. In the ED, resuscitated with IVF and started on phenobarbital per protocol. Review of Systems Review of Systems: General: No fevers, malaise, unintentional weight loss HEENT: No blurred vision, diplopia. No sore throat, nasal congestion, rhinorrhea, sinus pain, ear pain Cardiovascular: No chest pain, palpitations, or leg edema Respiratory: No shortness of breath, wheezing, cough GI: +n/v. No abdominal pain, nausea, vomiting, diarrhea, constipation, melena, hematochezia : No dysuria, hematuria, increased urinary frequency, decreased urinary output MSK: No myalgia, back pain Neuro: No headaches, weakness, paresthesias. +tremor, +confusion Psych: +AH/VH Skin: No rashes or lesions PMFSH Medical History Anxiety and depression ETOH abuse History of seizure due to alcohol withdrawal Social History Household Members: Spouse and Children Housing: Apartment Do you presently have visiting nurse or other home services: No Alcohol intake: current Alcohol intake frequency: 3 or more drinks per day Alcohol type: hard liquor Patient Tobacco Use Status: Former Tobacco user Smoked in Last 30 Days: No Use of substances other than those prescribed or required for medical reasons: No Substance Use Type: Marijuana Advance Directives: No Advance Directives Information Provided: Yes Meds Allergies Allergy/AdvReac Type Severity Reaction Status Date / Time No Known Allergies Allergy Verified 08/11/22 08:14 Active Medications: Current Medications Acetaminophen (Acetaminophen 325 Mg Tablet) 650 mg PO Q6H PRN PRN Reason: Pain, Mild (Pain Scale 1-3) Docusate Sodium (Docusate Sodium 100 Mg Capsule) 100 mg PO DAILY PRN PRN Reason: Constipation Enoxaparin Sodium (Enoxaparin Sodium 40 Mg/0.4 Ml Syringe) 40 mg SUBCUT Q24H EL Non-Formulary Medication (Milk Thistle) 1,000 mg PO DAILY EL Omeprazole (Omeprazole 20 Mg Capsule.Dr) 20 mg PO DAILY@0630 EL Ondansetron HCl (Ondansetron Hcl 4 Mg/2 Ml Vial) 4 mg IVPUSH Q8H PRN PRN Reason: Nausea and Vomiting Pharmacy Consult (Consult Rx Etoh Phenob Im/Po) 1 each MISCELLANE ONCE PRN; Protocol PRN Reason: Consult order Pharmacy Consult (Consult Rx Perform Med Rec) 1 each MISCELLANE ONCE PRN PRN Reason: Consult order Phenobarbital (Phenobarbital 15 Mg Tablet) 45 mg PO BID EL; Protocol Stop: 11/09/22 21:01 Phenobarbital (Phenobarbital 30 Mg Tablet) 30 mg PO BID EL; Protocol Stop: 11/11/22 21:01 Phenobarbital (Phenobarbital 15 Mg Tablet) 15 mg PO DAILY EL; Protocol Stop: 11/13/22 09:01 Phenobarbital Sodium (Phenobarbital Sodium 130 Mg/Ml Vial Im Q3hx2) 247 mg IM Q3H EL; Protocol Stop: 11/07/22 19:01 Last Admin: 11/07/22 16:15 Dose: 247 mg Vitamin D (Cholecalciferol (Vitamin D3) 25 Mcg Tablet) 25 mcg PO DAILY COUNT INCLUDES THE [facility] Home Medications Medication Instructions Recorded Confirmed Last Taken Type milk thistle 500 mg capsule 1,000 mg PO DAILY 08/11/22 11/07/22 Unknown History naltrexone 50 mg tablet 1 tab PO DAILY 08/11/22 11/07/22 2 Weeks Ago History ~10/24/22 omeprazole 20 mg capsule,delayed 20 mg PO DAILY@0630 08/11/22 11/07/22 Unknown History release cholecalciferol (vitamin D3) 25 25 mcg PO DAILY 11/07/22 11/07/22 Unknown History mcg (1,000 unit) tablet Physical Exam Vital Signs and Narrative: Vital Signs: Last Vital Signs Temp 98.1 F 11/07/22 16:21 Pulse 84 11/07/22 16:21 Resp 22 H 11/07/22 16:21 BP 150/90 H 11/07/22 16:21 Pulse Ox 98 11/07/22 16:21 O2 Del Method Room Air 11/07/22 16:21 BMI result Body Mass Index 28.8 Constitutional - Awake and Alert, No apparent distress Eyes - PERRLA, EOMI Cardiovascular - S1S2, RRR, No edema Respiratory - Normal lung expansion, Normal respiratory effort, No respiratory distress, CTA bilaterally Gastrointestinal - mild diffuse tenderness to palpation without rebound or guarding. ND; +BS Extremities - no calf tenderness bilaterally, no swelling Skin - Warm/Dry Neurological - Alert & oriented x3, CN II-XII in tact, 5/5 strength BUE and BLE Psychological - depressed mood, tearful on exam Results Labs 11/07/22 12:38 11/07/22 12:38 Labs: Laboratory Results - last 24 hr 11/07/22 11/07/22 11/07/22 12:38 12:38 12:38 MCV 89.1 MCH 31.4 MCHC 35.2 RDW 12.3 Plt Count 534 H MPV 8.9 L Immature Gran % (Auto) 0.3 Neut % (Auto) 69.0 Lymph % (Auto) 21.4 [place] % (Auto) 8.5 Eos % (Auto) 0.3 Baso % (Auto) 0.5 Lymph # (Auto) 2.8 [place] # (Auto) 1.1 Eos # (Auto) 0.0 Baso # (Auto) 0.1 Abs Immat Gran (auto) 0.04 H Absolute Neuts (auto) 8.9 H Absolute Nucleated RBC 0.000 Nucleated RBC % (auto) 0.0 Anion Gap 24 H Estim Creat Clear Calc 115.3 Estimated GFR > 60 Random Glucose 108 Calcium 10.9 H D Magnesium 2.2 Total Bilirubin 0.8 Direct Bilirubin 0.2 AST 35 ALT 35 Alkaline Phosphatase 76 Troponin I High Sens < 3.5 Total Protein 8.4 H Albumin 5.0 Urine Color Urine Appearance Urine pH Ur Specific [place] Urine Protein Urine Glucose (UA) Urine Ketones Urine Blood Urine Nitrite Ur Leukocyte Esterase Urine Opiates Screen Urine Fentanyl Screen Ur Barbiturates Screen Ur Phencyclidine Scrn Ur Amphetamines Screen U Benzodiazepines Scrn Urine Cocaine Screen U Marijuana (THC) Screen Ethyl Alcohol 65 COVID-19 (ELIE) COVID-19 PF Management Services 11/07/22 11/07/22 11/07/22 12:38 16:18 16:18 MCV MCH MCHC RDW Plt Count MPV Immature Gran % (Auto) Neut % (Auto) Lymph % (Auto) [place] % (Auto) Eos % (Auto) Baso % (Auto) Lymph # (Auto) [place] # (Auto) Eos # (Auto) Baso # (Auto) Abs Immat Gran (auto) Absolute Neuts (auto) Absolute Nucleated RBC Nucleated RBC % (auto) Anion Gap Estim Creat Clear Calc Estimated GFR Random Glucose Calcium Magnesium Total Bilirubin Direct Bilirubin AST ALT Alkaline Phosphatase Troponin I High Sens Total Protein Albumin Urine Color Yellow Urine Appearance Turbid Urine pH 8.5 Ur Specific [place] <= 1.005 Urine Protein Negative Urine Glucose (UA) Negative Urine Ketones Negative Urine Blood Negative Urine Nitrite Negative Ur Leukocyte Esterase Negative Urine Opiates Screen Not Detected Urine Fentanyl Screen Not Detected Ur Barbiturates Screen POSITIVE H Ur Phencyclidine Scrn Not Detected Ur Amphetamines Screen Not Detected U Benzodiazepines Scrn Not Detected Urine Cocaine Screen Not Detected U Marijuana (THC) Screen POSITIVE H Ethyl Alcohol COVID-19 (ELIE) Negative COVID-19 PF Management Services See Note Imaging Radiologist's Impressions: Impressions Chest X-Ray 11/07/22 13:05 IMPRESSION: Clear lungs. Assessment and Plan (1) Alcohol withdrawal syndrome: Status: Acute Plan 31-year-old male with history of alcohol dependence, history of alcohol withdrawal seizure, and GERD admitted for ETOH dependence with withdrawal. #Alcohol withdrawal -Symptoms prior to arrival- AH/VH, intractable nausea, vomiting, dry heaves with question unwitnessed Etoh withdrawal seizures. Hx etoh w/d seizure. No evidence DTs -Monitor closely on CIWA -Continue phenobarb per protocol -Zofran p.r.n. for nausea -clear liquids for now, advance as tolerated. Continue IVF given PO intolerance -IV thiamine x 3 days, change to PO. Folic acid -Seizure precautions -desires detox. Addiction Medicine consult placed -admit to medical/telemetry #Anxiety/depression -denies SI/HI -Psychiatry consult #GERD -continue ppi DVT prophylaxis-Lovenox Full code Pt aware he is at risk for severe withdrawal/seizure but is very concerned about his employment. Requested case management discuss FMLA/PMFLA with pt he can complete treatment Patient requires inpatient stay of at least 2 midnights for management of severe etoh withdrawal with possible etoh w/d seizure on phenobarbital per protocol requiring close monitoring. Time Spent With Patient Time: Total time managing care of this patient today ____ minutes. Quality Stroke Does the patient have a stroke diagnosis?: No VTE Prior VTE?: No VTE Risk Level:: Medical - moderate - high VTE Device Contraindication: Treatment Not Indicated VTE Drug Contraindication: N/A - Med Ordered
--- NOTE | 2022-11-07 18:15 | MHC.RECOVSUP ---
? Reason for consult: Recovery Support o Current location: ED12 o Identified substance use concern: AUD? - Withdrawal - Support ? ?Intervention: o MAT started or to be started o Community resources provided o Harm reduction discussion ? Plan: o Referral to CCC o Follow up tomorrow ? ? Additional information:?Patient consult with med team before entry. Pt is looking for support and guidance. assistant cross country coach was able to review harm reduction strategies and discuss options. Pt is very remorseful, scared and feeling insecure financially if he was to seek treatment away from the home. Substation Superintendent was able to support him with community resources and referrals for additional support.
[2022-11-07] MEDS: Thiamine HCL 100 MG in 0.9 % Sodium Chloride 100 ML 202 MG IV (18:17)
[2022-11-07] MEDS: Folic Acid 1 MG TABLET PO (18:17)
[2022-11-07] MEDS: Enoxaparin Sodium 40 MG/0.4 ML SYRINGE SUBCUT (18:18)
[2022-11-07] MEDS: 0.9 % Sodium Chloride 1,000 ML 100 ML IVCONT (18:19)
[2022-11-07 18:40] LABS: Lipase 17 U/L (8-78)
--- NOTE | 2022-11-07 19:30 | MHC.CM.PN ---
CM met with admitted patient with bed assignment 457. A&Ox4. Lives with and child. Employed. No DME/services. Unvaccinated. Had covid last month. States has had covid 4 times. Pt is very willing to speak with recovery services. D/C plan: home with outpatient [place] vs recovery program. ETOH misuse. No HCP on file. HCP reviewed, completed and signed. Copies given. Uploaded into [facility] and [facility] [employer]. HCP/wifwe Nani Burns ([phone]). Recovery team will f/u with patient tomorrow. CM will follow for any discharge needs.
--- NOTE | 2022-11-07 20:39 | PC.NURSE ---
Assumed care of pt. at 1900. Pt. resting in bed at this time awaiting transport upstairs to the floor. Pt. medicated with next dose of pheno per OCT. Transport arrived and took pt. upstairs.
[2022-11-07 20:49] VITALS: BMI 29.5
[2022-11-07] MEDS: Zolpidem Tartrate 5 MG TABLET PO (21:58)
[2022-11-07] MEDS: ondansetron HCL 4 MG/2 ML VIAL IVPUSH (22:04)
[2022-11-07] MEDS: Magnesium Hydrox/Alum Hydrox 30 ML ORAL.SUSP 15 ML PO (22:28)
--- NOTE | 2022-11-07 23:10 | MHC.PIE ---
p; pt c/o insomnia, acid stomach/nausea. prn zofran given i; dr nash notifed; new order ambien now. maalox prn q4 e; pt asleep in bed, will cont to timothy
[2022-11-08] VITALS: BP 128/79; PULSE 87; RESP 18; TEMP 36.9; O2SAT 97
[2022-11-08 03:49] VITALS: BP 132/79; PULSE 65; RESP 18; TEMP 37.1; O2SAT 96
[2022-11-08] MEDS: 0.9 % Sodium Chloride 1,000 ML 100 ML IVCONT (03:56)
[2022-11-08] MEDS: Omeprazole 20 MG CAPSULE.DR PO (05:48)
[2022-11-08 06:00] LABS: MANUAL DIFF FLAG NO
[2022-11-08 06:02] LABS: Basophils Absolute Auto 0.1 X10*3/uL (0.0-0.2); Basophils Percent Auto 0.9 % (0-2); Eosinophils Absolute Auto 0.1 X10*3/uL (0.0-0.4); Eosinophils Percent Auto 1.6 % (0-4); Hematocrit 39.4 % (42.0-52.0); Hemoglobin 13.7 g/dl (14.0-18.0); Imm Gran Abs Auto 0.02 X10*3/uL (0.00-0.03); Imm Gran Pct Auto 0.2 % (0.0-0.4); Lymphocytes Absolute Auto 2.2 X10*3/uL (1.2-4.9); Mean Corpuscular HGB Conc 34.8 g/dl (31.0-36.0); Mean Corpuscular Hemoglobin 31.9 pg (27.0-33.0); Mean Corpuscular Volume 91.8 fL (80.0-98.0); Mean Platelet Volume 8.9 fL (9.4-12.4); Monocytes Absolute Auto 1.1 X10*3/uL (0.1-1.2); Monocytes Percent Auto 12.6 % (2-11); Neutrophils Absolute Auto 5.3 x10*3/uL (2.0-8.3); Neutrophils Percent Auto 59.7 % (45-73); Platelet Count 387 X10*3/uL (160-400); Red Blood Count 4.29 X10*6/uL (4.60-5.80); Red Cell Distribution Width 12.2 % (11.0-16.0); White Blood Count 8.9 X10*3/uL (4.8-10.8)
[2022-11-08 06:47] LABS: Anion Gap 13 (12-20); Blood Urea Nitrogen 7 mg/dL (9-16); Calcium 8.5 mg/dL (8.4-10.2); Carbon Dioxide 26 mmol/L (22-29); Chloride 100 mmol/L (96-108); Creatinine Clr Calc Pharmacy 132.4; Estimated Glomerular Filt Rate > 60; Glucose Random 87 mg/dL (60-115); Potassium 3.7 mmol/L (3.3-5.1); Sodium 135 mmol/L (135-145)
[2022-11-08 07:33] VITALS: BP 116/57; PULSE 78; RESP 16; TEMP 36.5; O2SAT 96
[2022-11-08] MEDS: PHENobarbitaL 15 MG TABLET 45 MG PO (08:44)
[2022-11-08] MEDS: Thiamine HCL 100 MG in 0.9 % Sodium Chloride 100 ML 202 MG IV (08:44)
[2022-11-08] MEDS: Folic Acid 1 MG TABLET PO (08:44)
[2022-11-08] MEDS: Cholecalciferol (Vitamin D3) 25 MCG TABLET PO (08:44)
--- NOTE | 2022-11-08 11:01 | MHC.RECOVRN ---
This business writer met w/ patient, after receiving addiction consult. 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 This business writer and patient reviewed recovery resources. Patient reports met w/ Sandra Dietary Tech last night, plans to call Sandra to f/u with RC in the community. Patient reports had been taking Naltexone in the past, prescribed by Misty Jasmine for one year. Patient states plans to take Naltrexone upon d/c. This business writer reviewed harm reduction, recovery resources, SINDI, and services offered at the [facility]. Patient reports plans to f/u w/ Misty Jasmine, Addiction/Recovery team contact info, encouraged patient to call with any questions/concerns. Howard suárez RN aware.
[2022-11-08 11:31] VITALS: BP 143/80; PULSE 85; RESP 16; TEMP 36.4; O2SAT 98
--- NOTE | 2022-11-08 11:37 | PM.DS ---
DS: Providers Provider Date of Service: 11/08/22 Date of admission: 11/07/22 17:41 Date of discharge: 11/08/22 Primary care physician: Do Moody NP Consults: 11/07/22 16:23 Addiction Medicine Routine Consulting Provider: Addiction Covering Reason for consultation: etoh dependence, withdrawal 11/07/22 17:52 Consult to Psychiatry Routine Consulting Provider: Psych Covering Reason for consultation: depression/anxiety, etoh dependence- medication recommendation DS: Diagnosis Discharge Diagnosis (1) Alcohol withdrawal syndrome: Status: Acute DS: Summary Hospital Course Hospital Course: 31-year-old male with history of alcohol dependence, history of alcohol withdrawal seizure, and GERD presented to the ED earlier today for evaluation of alcohol withdrawal.? The patient states he has a history of heavy alcohol consumption and for the last 7 days has been bingeing on alcohol consuming 24-25 24 oz cans of a mixed cocktail and decided to try to cut back today.? He states he did not consume any alcohol upon waking which he typically does and presented to work.? He reports paranoia, auditory and visual hallucinations, nausea, vomiting, and an episode where he ?passed out? for an unspecified period of time which was unwitnessed. He did experience confusion upon waking. He states he did try to consume more alcohol due to his symptoms, but was unable to tolerate them d/t n/v. He had previously been taking naltrexone but has been without the medication for about 1 month.? He does desire detox.? He does report depressive symptoms and significant anxiety as well but denies any SI/HI. On arrival, patient found to be tachycardic to 141, tachypneic to 24, vital signs otherwise stable.? Hematology studies significant for reactive leukocytosis of 12.9.? Renal function baseline, electrolyte levels WNL.? UA unremarkable.? Urine tox screen positive for barbiturates (collected after phenobarbital administration) and THC.? Ethyl alcohol level 65.? CXR negative.? EKG showing sinus tachycardia, rate 108, no ST/T-wave abnormality.? In the ED, resuscitated with IVF and started on phenobarbital per protocol. Hospital course: possible the alcohol withdrawal and question alcohol withdrawal seizure unwitnessed: cbc ,bmp ,cxr,ekg seems fine ,troponin negative. etod levels 65 on admission. patient was started on phenobarb protocol, seems to be improved significantly.ciwa is zero, advised to strongly abstain from alcohol. Seen by addiction and recovery time: Information given. plan: advised to strongly abstain from alcohol. avoid driving until seen by pcp. Above management discussed the patient in detail length he understand and in agreement with the above plan, time spent 50 minute. Time Spent with Patient Time attestation: Total time managing care of this patient today ____ minutes. Discharge coordination time: Greater than 30 minutes Quality: Safe Use of Opioids Does Pt have an Active Cancer Diagnosis on the Problem List?: No Quality: Stroke Does the patient have a stroke diagnosis?: No Physical Exam Vital Signs: Vital Signs: Last Vital Signs Temp 97.5 F 11/08/22 11:31 Pulse 85 11/08/22 11:31 Resp 16 11/08/22 11:31 BP 143/80 H 11/08/22 11:31 Pulse Ox 98 11/08/22 11:31 O2 Del Method Room Air 11/08/22 11:31 BMI result Body Mass Index 29.5 Appearance: Alert.? Oriented X3.? not in distress.? Eyes: Pupils equal, round and reactive to light.? Sclera nonicteric.? ENT: Pharynx normal.? Moist mucous membranes. cvs: rrr, [id number] , no murmur res: clear to auscultation ,no rhonchii or wheezing abd: no rebound or guarding ,nt, bs present. ext pulses present , no cyanosis . neuro: axo3 , nonfocal. DS: Data Data Completed and Pending Completed studies during hospitalization [Text1]: Procedures Detoxification Services for Substance Abuse Treatment (08/11/22) Labs on day of discharge: Laboratory Results - last 24 hr 11/07/22 11/07/22 11/07/22 12:38 12:38 12:38 WBC 12.9 H RBC 5.42 Hgb 17.0 Hct 48.3 MCV 89.1 MCH 31.4 MCHC 35.2 RDW 12.3 Plt Count 534 H MPV 8.9 L Immature Gran % (Auto) 0.3 Neut % (Auto) 69.0 Lymph % (Auto) 21.4 [place] % (Auto) 8.5 Eos % (Auto) 0.3 Baso % (Auto) 0.5 Lymph # (Auto) 2.8 [place] # (Auto) 1.1 Eos # (Auto) 0.0 Baso # (Auto) 0.1 Abs Immat Gran (auto) 0.04 H Absolute Neuts (auto) 8.9 H Absolute Nucleated RBC 0.000 Nucleated RBC % (auto) 0.0 Sodium 138 Potassium 3.6 Chloride 95 L Carbon Dioxide 23 Anion Gap 24 H BUN 5 L Creatinine 1.00 Estim Creat Clear Calc 115.3 Estimated GFR > 60 Random Glucose 108 Calcium 10.9 H D Magnesium 2.2 Total Bilirubin 0.8 Direct Bilirubin 0.2 AST 35 ALT 35 Alkaline Phosphatase 76 Troponin I High Sens < 3.5 Total Protein 8.4 H Albumin 5.0 Lipase 17 Urine Color Urine Appearance Urine pH Ur Specific [place] Urine Protein Urine Glucose (UA) Urine Ketones Urine Blood Urine Nitrite Ur Leukocyte Esterase Urine Opiates Screen Urine Fentanyl Screen Ur Barbiturates Screen Ur Phencyclidine Scrn Ur Amphetamines Screen U Benzodiazepines Scrn Urine Cocaine Screen U Marijuana (THC) Screen Ethyl Alcohol 65 COVID-19 (ELIE) COVID-19 [employer] ([employer]) 11/07/22 11/07/22 11/07/22 12:38 16:18 16:18 WBC RBC Hgb Hct MCV MCH MCHC RDW Plt Count MPV Immature Gran % (Auto) Neut % (Auto) Lymph % (Auto) [place] % (Auto) Eos % (Auto) Baso % (Auto) Lymph # (Auto) [place] # (Auto) Eos # (Auto) Baso # (Auto) Abs Immat Gran (auto) Absolute Neuts (auto) Absolute Nucleated RBC Nucleated RBC % (auto) Sodium Potassium Chloride Carbon Dioxide Anion Gap BUN Creatinine Estim Creat Clear Calc Estimated GFR Random Glucose Calcium Magnesium Total Bilirubin Direct Bilirubin AST ALT Alkaline Phosphatase Troponin I High Sens Total Protein Albumin Lipase Urine Color Yellow Urine Appearance Turbid Urine pH 8.5 Ur Specific [place] <= 1.005 Urine Protein Negative Urine Glucose (UA) Negative Urine Ketones Negative Urine Blood Negative Urine Nitrite Negative Ur Leukocyte Esterase Negative Urine Opiates Screen Not Detected Urine Fentanyl Screen Not Detected Ur Barbiturates Screen POSITIVE H Ur Phencyclidine Scrn Not Detected Ur Amphetamines Screen Not Detected U Benzodiazepines Scrn Not Detected Urine Cocaine Screen Not Detected U Marijuana (THC) Screen POSITIVE H Ethyl Alcohol COVID-19 (ELIE) Negative COVID-19 [employer] ([employer]) See Note 11/08/22 11/08/22 05:41 05:41 WBC 8.9 RBC 4.29 L D Hgb 13.7 L Hct 39.4 L MCV 91.8 MCH 31.9 MCHC 34.8 RDW 12.2 Plt Count 387 D MPV 8.9 L Immature Gran % (Auto) 0.2 Neut % (Auto) 59.7 Lymph % (Auto) 25.0 [place] % (Auto) 12.6 H Eos % (Auto) 1.6 Baso % (Auto) 0.9 Lymph # (Auto) 2.2 [place] # (Auto) 1.1 Eos # (Auto) 0.1 Baso # (Auto) 0.1 Abs Immat Gran (auto) 0.02 Absolute Neuts (auto) 5.3 Absolute Nucleated RBC 0.000 Nucleated RBC % (auto) 0.0 Sodium 135 Potassium 3.7 Chloride 100 Carbon Dioxide 26 Anion Gap 13 BUN 7 L Creatinine 0.88 Estim Creat Clear Calc 132.4 Estimated GFR > 60 Random Glucose 87 Calcium 8.5 D Magnesium Total Bilirubin Direct Bilirubin AST ALT Alkaline Phosphatase Troponin I High Sens Total Protein Albumin Lipase Urine Color Urine Appearance Urine pH Ur Specific [place] Urine Protein Urine Glucose (UA) Urine Ketones Urine Blood Urine Nitrite Ur Leukocyte Esterase Urine Opiates Screen Urine Fentanyl Screen Ur Barbiturates Screen Ur Phencyclidine Scrn Ur Amphetamines Screen U Benzodiazepines Scrn Urine Cocaine Screen U Marijuana (THC) Screen Ethyl Alcohol COVID-19 (ELIE) COVID-19 Clin Com Imaging Chest x-ray: Radiologist's impression: ITS Impressions Chest X-Ray 11/07/22 13:05 IMPRESSION: Clear lungs. Discharge Plan Discharge Anticipated Discharge Date/Time: 11/08/22 11:28 Patient Disposition: Home, Self-Care Discharge Diagnosis: alcohol withdrawal Referrals: Do Moody NP [Primary Care Provider] - 1 Week Discharge Medications: New folic acid 1 mg Tablet 1 mg PO DAILY Qty: 30 0RF docusate sodium 100 mg Capsule 100 mg PO DAILY PRN (Reason: Constipation) Qty: 30 0RF thiamine HCl (vitamin B1) 100 mg tablet 100 mg PO DAILY Qty: 30 0RF Continued milk thistle 500 mg Capsule 1,000 mg PO DAILY Rx Instructions: give with meal/snack naltrexone 50 mg tablet 1 tab PO DAILY omeprazole 20 mg Capsule,Delayed Release(Dr/Ec) 20 mg PO DAILY@0630 cholecalciferol (vitamin D3) 25 mcg (1,000 unit) Tablet 25 mcg PO DAILY Discharge Orders: Discharge Order (Routine); Ordered 11/08/22 Ordered By: Adam Velazquez Diet: Advance to usual diet Activity on Discharge: As tolerated Stand Alone Forms: Patient Portal Discharge page, Against Medical Advice Care Plan Goals: possible the alcohol withdrawal and question alcohol withdrawal seizure unwitnessed: patient was started on phenobarb protocol, seems to be improved significantly. Going home. advised to strongly abstain from alcohol,avoid driving until seen by pcp. Seen by addiction and recovery time: Information given. Health Concerns: as above. Plan of Treatment: As above. Assessment: As above.
--- NOTE | 2022-11-08 12:03 | MHC.CM.PN ---
Patient has been medically cleared for dc to home today, self care.
== END 2022-11-08 12:50 | disposition home or self-care (01) | DRG 775 ==
LOC: HO.ED 12:43 → HO.IMC 16:39 → HO.EDOVER 17:11 → HO.ED 17:22 → HO.EDOVER 18:09 → HO.IMC 18:29
PROVIDERS: Physician Assistant; Admitting Provider Physician Assistant; Emergency Provider Emergency Medicine; PCP Registered Nurse; Visit Provider Internal Medicine
DX: F10.239 Alcohol dependence with withdrawal, unspecified (principal); R56.9 Unspecified convulsions; F32.A Depression, unspecified; K21.9 Gastro-esophageal reflux disease without esophagitis; F41.9 Anxiety disorder, unspecified; Y90.3 Blood alcohol level of 60-79 mg/100 ml; Z20.822 Contact with and (suspected) exposure to COVID-19; Z79.891 Long term (current) use of opiate analgesic; Z79.899 Other long term (current) drug therapy
CPT/HCPCS: 36415; 71045; 80048; 80076; 80307; 81003; 82077; 83690; 83735; 84484; 85025; 87635; 93005; 99285; J1650; J2060; J2405; J2560; J3411; J3475

== ENCOUNTER 2023-01-06 11:18 | Inpatient (IN) | payer OTHER, SELFPAY ==
[2023-01-06] VITALS (7 sets, daily range): BP systolic 120–148; BP diastolic 63–101; PULSE 64–140; RESP 11–23; TEMP 36.5–36.8; O2SAT 94–98; BMI 28.9; BMI 29.8
--- NOTE | 2023-01-06 11:23 | ED_ITS ---
HPI - General Adult General Chief complaint: General Medical Stated complaint: chest pain Time Seen by Provider: 01/06/23 11:41 Source: patient and old records reviewed Mode of arrival: ambulatory Limitations: no limitations History of Present Illness HPI narrative: 32 yo male with history of alcohol abuse and dependence, history of alcohol withdrawal requiring admission to the hospital in November presents to the ER for evaluation of alcohol withdrawal symptoms after quitting drinking yesterday at 11am. He states he relapsed about 1 month ago because he couldnt afford his naltrexone. He has been on a vallecillo since, drinking 30 beers per day. He woke up this morning lightheaded, nauseated, vomiting with abdominal burning, inability to tolerate any PO. He was shaky and anxious. He started feeling bugs crawling on his fingers and hands. While in the waiting room he was starting to see shadows. He was having palpitations and chest pain. MD complaint: alcohol withdrawal Onset (ago): hour(s) Location: head, chest and abdomen Radiation: non-radiation Severity: severe Quality: aching Pain Consistency: constant Relieving factors: none Exacerbating factors: eating Associated symptoms: confusion, diaphoresis, headaches, loss of appetite, malaise, nausea/vomiting, shortness of breath and weakness Treatments prior to arrival: none Related Data Home Medications Medication Instructions Recorded Confirmed omeprazole 20 mg capsule,delayed 20 mg PO DAILY@0630 08/11/22 01/06/23 release Allergies Allergy/AdvReac Type Severity Reaction Status Date / Time No Known Allergies Allergy Verified 08/11/22 08:14 Review of Systems Review of Systems: Yes all other systems are reviewed and are negative PMFSH Past Medical History Medical History Anxiety and depression ETOH abuse History of seizure due to alcohol withdrawal Social History Social History Household Members: Family Housing: Apartment Do you presently have visiting nurse or other home services: No Alcohol intake: current Alcohol intake frequency: 3 or more drinks per day Alcohol type: beer Patient Tobacco Use Status: Former Tobacco user Smoked in Last 30 Days: No Use of substances other than those prescribed or required for medical reasons: Yes Substance Use Type: Marijuana Advance Directives: Yes Advance Directives on File: Yes Advance Directives Date on File: 11/07/22 service: No Current occupational status: employed Physical Exam ED Vital Signs: Vital Signs - 24 hr 01/06/23 11:22 01/06/23 12:04 Temperature 98.0 F Pulse Rate 140 H 100 Respiratory Rate 18 15 Blood Pressure 127/98 H Pulse Oximetry 98 97 Oxygen Delivery Method Room Air Room Air BMI result Body Mass Index 28.9 Appearance: Alert. Oriented X3. Diaphoretic Head: normocephalic, atraumatic. Eyes: Pupils equal, round and reactive to light. no scleral icterus ENT: Pharynx normal. No tonsillar swelling or exudate. Neck: Normal inspection. Neck supple. CVS: tachycardic, regular rhythm. Pulses normal. Respiratory: No respiratory distress. Breath sounds normal. Abdomen: Soft with mild upper abdominal tenderness throughout, no rebound or guarding, negative guerrero's sign. +BS x4 Skin: Skin warm and dry. Normal skin color. Normal skin turgor. No rashes. Extremities: No lower extremity edema. No joint swelling. Neuro/psych: Oriented X 3. No motor deficit. No sensory deficit. CN II-XII intact. Normal speech and cognition. +hallucinations, slight hand tremor Course Course Course Narrative: RME performed by Brigette Hays PA-C. Patient is a 32 year old assigned male at presenting to the emergency department with nausea, vomiting, and hallucinations. Patient states that he stopped drinking cold turkey yesterday. Patient states that he usually he drinks 30 beers a day. Labs ordered. Patient placed back in the waiting room pending room availability and results. Reevaluation(s) Reevaluation #1: feeling slightly better after 4mg ivp ativan. awake and alert. phenobarb prot ocol ordered planning for admission for further management Time: 13:54 Medications Administered Discontinued Medications Generic Name Dose Route Start Last Admin Trade Name Freq PRN Reason Stop Dose Admin Sodium Chloride 1,000 mls @ 999 mls/hr 01/06/23 12:00 01/06/23 12:01 Ns IV 01/06/23 13:00 999 mls/hr .Q1H1M EL Administration Lorazepam 4 mg 01/06/23 11:54 01/06/23 12:00 Lorazepam 2 Mg/Ml Vial IVPUSH 01/06/23 11:55 4 mg ONCE ONE Administration Ondansetron HCl 4 mg 01/06/23 12:10 01/06/23 12:20 Ondansetron Hcl 4 Mg/2 Ml Vial IVPUSH 01/06/23 12:11 4 mg ONCE ONE Administration Phenobarbital Sodium 330 mg 01/06/23 13:15 01/06/23 13:37 Phenobarbital Sodium 130 Mg/Ml Im Once IM 01/06/23 13:16 330 mg ONCE ONE Administration Medical Decision Making Medical Decision Making [facility] Narrative: 32 yo male with history of ETOH abuse/dependence/hx withdrawal symptoms after stopping cold turkey yesterday. CIWA 38 on arrival. given 4mg IV ativan with improvement in symptoms. labs show leukocytosis 16 likely reactive due to vomiting. doubt infection labs d/w dehydration, no evidence of acute alcoholic hepatitis. hold off on abd imaging for now will require admission to the medical floor for treatment of DTs Differential Diagnosis Differential Diagnoses: The differential diagnosis associated with the presentation includes acute alcohol withdrawal with delirium, acute alcoholic hepatitis, gastroenteritis, dehydration, substance induced hallucinations Admission/Observation Consideration of admission/observation: Escalation of care including admission/observation considered CIWA high 30s, needs medical admit Consult Healthcare Provider Management of the patient was discussed with: Hospitalist Lab Data [facility] Lab Attestation statement: I reviewed the patient's lab results. leukocytosis, thrombocytosis 01/06/23 11:50 01/06/23 11:50 Labs: Lab Results 01/06/23 01/06/23 01/06/23 Range/Units 11:50 11:50 12:20 WBC 16.0 H (4.8-10.8) X10*3/uL RBC 5.65 D (4.60-5.80) X10*6/uL Hgb 17.9 D (14.0-18.0) g/dl Hct 49.5 D (42.0-52.0) % MCV 87.6 (80.0-98.0) fL MCH 31.7 (27.0-33.0) pg MCHC 36.2 H (31.0-36.0) g/dl RDW 11.8 (11.0-16.0) % Plt Count 490 H D (160-400) X10*3/uL MPV 9.0 L (9.4-12.4) fL Immature Gran % (Auto) 0.5 H (0.0-0.4) % Neut % (Auto) 77.3 H (45-73) % Lymph % (Auto) 11.2 L (20-40) % [place] % (Auto) 10.7 (2-11) % Eos % (Auto) 0.1 (0-4) % Baso % (Auto) 0.2 (0-2) % Lymph # (Auto) 1.8 (1.2-4.9) X10*3/uL [place] # (Auto) 1.7 H (0.1-1.2) X10*3/uL Eos # (Auto) 0.0 (0.0-0.4) X10*3/uL Baso # (Auto) 0.0 (0.0-0.2) X10*3/uL Abs Immat Gran (auto) 0.08 H (0.00-0.03) X10*3/uL Absolute Neuts (auto) 12.4 H (2.0-8.3) x10*3/uL Absolute Nucleated RBC 0.000 (0.0-0.012) X10*3/uL Nucleated RBC % (auto) 0.0 (0.0-0.2) /100WBC PT 11.8 (10.0-13.1) SEC INR 1.0 (0.9-1.1) APTT 23.9 L (26.0-36.4) SEC Sodium 135 (135-145) mmol/L Potassium 3.7 (3.3-5.1) mmol/L Chloride 88 L (96-108) mmol/L Carbon Dioxide 28 (22-29) mmol/L Anion Gap 23 H (12-20) BUN 6 L (9-16) mg/dL Creatinine 1.09 (0.5-1.4) mg/dL Estim Creat Clear Calc 104.8 Estimated GFR > 60 Random Glucose 117 H (60-115) mg/dL Calcium 10.5 H D (8.4-10.2) mg/dL Magnesium 2.0 (1.6-2.6) mg/dL Total Bilirubin 1.1 H (0.0-1.0) mg/dL AST 29 (5-37) U/L ALT 38 (0-40) U/L Alkaline Phosphatase 88 (39-117) U/L Total Protein 8.1 H (6.5-8.0) g/dL Albumin 4.6 (3.5-5.0) g/dL Lipase 12 (8-78) U/L Salicylates < 5.0 L (15-30) mg/dL Acetaminophen < 17 (<30) mcg/mL Ethyl Alcohol < 10 mg/dL Independent Interpretation I performed an independent interpretation of an: EKG Interpretation: ekg w/ sinus tachycardia, hr 108, normal qtc, normal pr interval Prescription Management I considered prescription management with: Other (benzos and phenobarb) Chronic Conditions Patient?s care impacted by: Other (etoh abuse/dependence) Critical Care Time Critical Care Time Critical Care Time: Yes Total Critical Care Time: 39 Attestation: I have personally provided critical care time exclusive of time spent on separately billable procedures. Time includes review of lab data, radiology results, discussion with consultants, and monitoring for potential decompensation. Intervention performed as documented. Discharge Plan Discharge Clinical Impression: Alcohol withdrawal syndrome Patient Disposition: Admitted As Inpatient
--- NOTE | 2023-01-06 11:24 | ECG_ITS ---
Test Reason : CHESTPAIN Blood Pressure : / mmHG Vent. Rate : 108 BPM Atrial Rate : 108 BPM P-R Int : 140 ms QRS Dur : 080 ms QT Int : 348 ms P-R-T Axes : 060 056 058 degrees QTc Int : 466 ms Sinus tachycardia Otherwise normal ECG When compared with ECG of 07-NOV-2022 12:49, No significant change was found Referred By: Brigette Hays Electronically Signed By:CHAO RUIZ MD
--- NOTE | 2023-01-06 11:27 | PC.NURSE ---
unable to obtain bp in triage. pt very tremulous.
[2023-01-06] MEDS: LORazepam 2 MG/ML VIAL 4 MG IVPUSH (12:00)
[2023-01-06 12:01] LABS: Basophils Percent Auto 0.2 % (0-2); Eosinophils Percent Auto 0.1 % (0-4); Hematocrit 49.5 % (42.0-52.0); Hemoglobin 17.9 g/dl (14.0-18.0); Imm Gran Abs Auto 0.08 X10*3/uL (0.00-0.03); Imm Gran Pct Auto 0.5 % (0.0-0.4); Lymphocytes Absolute Auto 1.8 X10*3/uL (1.2-4.9); Lymphocytes Percent Auto 11.2 % (20-40); Mean Corpuscular HGB Conc 36.2 g/dl (31.0-36.0); Mean Corpuscular Hemoglobin 31.7 pg (27.0-33.0); Mean Corpuscular Volume 87.6 fL (80.0-98.0); Monocytes Absolute Auto 1.7 X10*3/uL (0.1-1.2); Neutrophils Absolute Auto 12.4 x10*3/uL (2.0-8.3); Neutrophils Percent Auto 77.3 % (45-73); Platelet Count 490 X10*3/uL (160-400); Red Blood Count 5.65 X10*6/uL (4.60-5.80); Red Cell Distribution Width 11.8 % (11.0-16.0); SCAN SMEAR FLAG 1
[2023-01-06] MEDS: 0.9 % Sodium Chloride 1,000 ML 999 ML IV (12:01)
[2023-01-06 12:03] LABS: MANUAL DIFF FLAG NO; Monocytes Percent Auto 10.7 % (2-11)
--- NOTE | 2023-01-06 12:08 | PC.NURSE ---
Patient presents with S/S of DT's. Patient is alert and oriented but complaining of headaches. Patient states that he was trying to manage at home but he started to hear things and see shadows so he came to be checked out. Patient tremulous and diaphoretic at this time. Patient was in a program and was doing well for a while but approximately 4 weeks ago he fell off the wagon patient was drinking approximately 30 beers a day from morning to night and would even wake up in the night and have to drink more so he could go back to sleep. Patient states that he wanted to come for help earlier but he wasn't able to get time off from work in order to come in. Patient tearful and states that he has a 4 year old at home that he needs to take care of and wants to get better for.
[2023-01-06] MEDS: ondansetron HCL 4 MG/2 ML VIAL IVPUSH (12:20)
[2023-01-06 12:30] LABS: Acetaminophen LAB < 17 mcg/mL (<30); Alanine Aminotransferase 38 U/L (0-40); Albumin Level 4.6 g/dL (3.5-5.0); Alkaline Phosphatase 88 U/L (39-117); Anion Gap 23 (12-20); Aspartate Amino Transferase 29 U/L (5-37); Bilirubin Total 1.1 mg/dL (0.0-1.0); Blood Urea Nitrogen 6 mg/dL (9-16); Calcium 10.5 mg/dL (8.4-10.2); Carbon Dioxide 28 mmol/L (22-29); Chloride 88 mmol/L (96-108); Creatinine Clr Calc Pharmacy 104.8; Estimated Glomerular Filt Rate > 60; Ethanol < 10 mg/dL; Glucose Random 117 mg/dL (60-115); Lipase 12 U/L (8-78); Potassium 3.7 mmol/L (3.3-5.1); Salicylate < 5.0 mg/dL (15-30); Sodium 135 mmol/L (135-145); Total Protein 8.1 g/dL (6.5-8.0)
[2023-01-06 12:31] LABS: Prothrombin Time 11.8 SEC (10.0-13.1)
[2023-01-06 12:41] LABS: Partial Thromboplastin Time 23.9 SEC (26.0-36.4)
--- NOTE | 2023-01-06 13:15 | PHA.MEDREC ---
Pharmacy Consult ? Medication Reconciliation Pharmacy has completed the medication reconciliation Spoke to patient to confirm meds. Patient states they set up an appointment to get a new prescription for naltrexone and should be taking it, however were unable to for several months (since 04/2022) because of financial problems. Currently, patient only takes omepreazole..
[2023-01-06] MEDS: PHENobarbitaL sodium 130 MG/ML IM ONCE 330 MG IM (13:37)
--- NOTE | 2023-01-06 15:06 | PM.IMHP ---
History of Present Illness Date of Service: 01/06/23 Attending physician on admission: Orly Aggarwal Chief Complaint: I want to stop drinking This is a 32-year-old male who presents to the emergency department with vomiting and stating that he wants to stop drinking. He states that he was admitted to the hospital in November for alcohol withdrawal. Following that admission he has 3 weeks of sobriety a which time he was taking naltrexone. He lost his insurance and was no longer able to take this medication or go to the meetings he had been attending. The past several weeks he has been drinking 16-24 Jae[employer] harder lemonade. His last drink was last night at 11 pm. On arrival to the emergency department he was tachycardic and diaphoretic. He was scoring a 38 on the CIWA scale. He received IV Ativan and was started on phenobarbital protocol. At this time he appears awake, alert and oriented and not tremulous. Review of Systems Review of Systems: Yes all other systems are reviewed and are negative Constitutional: Constitutional: Denies chills and Denies fever(s) ENT: Denies dizziness Cardiovascular: Cardiovascular: Denies chest pain, Denies palpitations and Denies dyspnea Respiratory: Respiratory: Denies cough and Denies dyspnea Gastrointestinal: Gastrointestinal: Denies abdominal pain Neurologic: Denies dizziness Endocrine: Endocrine: Denies palpitations [facility] Medical History Anxiety and depression ETOH abuse History of seizure due to alcohol withdrawal Functional capacity: independent ambulation Family History (Updated 01/06/23 @ 15:18 by YOHANA Dudley) Other Diabetes Social History (Updated 01/06/23 @ 15:18 by YOHANA Dudley) Household Members: Family Housing: Apartment Do you presently have visiting nurse or other home services: No Alcohol intake: current Alcohol intake frequency: 3 or more drinks per day Alcohol type: beer Patient Tobacco Use Status: Former Tobacco user Smoked in Last 30 Days: No Use of substances other than those prescribed or required for medical reasons: Yes Substance Use Type: Marijuana Advance Directives: Yes Advance Directives on File: Yes Advance Directives Date on File: 11/07/22 service: No Current occupational status: employed Meds Allergies Allergy/AdvReac Type Severity Reaction Status Date / Time No Known Allergies Allergy Verified 08/11/22 08:14 Active Medications: Current Medications Pharmacy Consult (Consult Rx Perform Med Rec) 1 each MISCELLANE ONCE PRN PRN Reason: Consult order Pharmacy Consult (Consult Rx Etoh Phenob Im/Po) 1 each MISCELLANE ONCE PRN; Protocol PRN Reason: Consult order Phenobarbital (Phenobarbital 15 Mg Tablet) 45 mg PO BID [facility] Stop: 01/08/23 21:01 Phenobarbital (Phenobarbital 15 Mg Tablet) 15 mg PO BID [facility] Stop: 01/10/23 21:01 Phenobarbital (Phenobarbital 15 Mg Tablet) 15 mg PO DAILY [facility] Stop: 01/12/23 09:01 Phenobarbital Sodium (Phenobarbital Sodium 130 Mg/Ml Vial Im Q3hx2) 247 mg IM Q3H EL Stop: 01/06/23 20:01 Home Medications Medication Instructions Recorded Confirmed Last Taken Type omeprazole 20 mg capsule,delayed 20 mg PO DAILY@0630 08/11/22 01/06/23 01/05/23 History release Physical Exam Vital Signs and Narrative: Vital Signs: Last Vital Signs Temp 98.1 F 01/06/23 14:48 Pulse 94 01/06/23 14:48 Resp 16 01/06/23 14:48 BP 148/97 H 01/06/23 14:48 Pulse Ox 97 01/06/23 14:48 O2 Del Method Room Air 01/06/23 14:48 BMI result Body Mass Index 28.9 Const: Other: not tremulous General: cooperative, comfortable, no acute distress, alert and awake Nutritional Appearance: average body habitus Orientation/consciousness: patient oriented x3 Resp: Effort & Inspection: normal respiratory effort, able to speak in complete sentences, respiratory distress and uses accessory muscles Auscultation: clear to auscultation bilaterally Cardio: Rate: regular rate Heart sounds: S1 normal heart sound present and S2 normal heart sound present GI: Inspection: No distended Palpation (GI): Soft to palpation and nontender Neuro: General: patient oriented x3, moves all extremities and CN's II-XI intact bilaterally Extrem: General: Yes no pedal edema Results Labs 01/06/23 11:50 01/06/23 11:50 Labs: Laboratory Results - last 24 hr 01/06/23 01/06/23 01/06/23 11:50 11:50 12:20 MCV 87.6 MCH 31.7 MCHC 36.2 H RDW 11.8 Plt Count 490 H D MPV 9.0 L Immature Gran % (Auto) 0.5 H Neut % (Auto) 77.3 H Lymph % (Auto) 11.2 L Mckenzie % (Auto) 10.7 Eos % (Auto) 0.1 Baso % (Auto) 0.2 Lymph # (Auto) 1.8 Mckenzie # (Auto) 1.7 H Eos # (Auto) 0.0 Baso # (Auto) 0.0 Abs Immat Gran (auto) 0.08 H Absolute Neuts (auto) 12.4 H Absolute Nucleated RBC 0.000 Nucleated RBC % (auto) 0.0 PT 11.8 INR 1.0 APTT 23.9 L Anion Gap 23 H Estim Creat Clear Calc 104.8 Estimated GFR > 60 Random Glucose 117 H Calcium 10.5 H D Magnesium 2.0 Total Bilirubin 1.1 H AST 29 ALT 38 Alkaline Phosphatase 88 Total Protein 8.1 H Albumin 4.6 Lipase 12 Salicylates < 5.0 L Acetaminophen < 17 Ethyl Alcohol < 10 Assessment and Plan (1) Alcohol withdrawal syndrome: Status: Acute Plan This is a 32-year-old male with history of alcohol dependence who presents to the emergency department with nausea and evidence of alcohol withdrawal Alcohol dependence with alcohol withdrawal Phenobarbital protocol initiated in the emergency department with improvement in symptoms Follow CIWA scale - initially scoring 38, now has improved Thiamine, folic acid supplementation Addiction medicine consultation monitor on [employer] 2.0, follow lytes LFTs wnl Leukocytosis WBC 16 reactive vs hemoconcentration no indication of infection follow CBC Gerd continue po omeprazole dvt ppx - mechanical devices code status - full code attending - dr. guevara patient will likely need two midnight stay in the hospital for management of alcohol withdrawal including IM phenobarbital and close monitoring Time Spent With Patient Time: Total time managing care of this patient today ____ minutes. Quality Stroke Does the patient have a stroke diagnosis?: No VTE Prior VTE?: No VTE Risk Level:: Medical - moderate - high VTE Device Contraindication: N/A - Device Ordered VTE Drug Contraindication: N/A - Med Ordered
[2023-01-06] MEDS: Thiamine HCL 100 MG in 0.9 % Sodium Chloride 100 ML 202 MG IV (16:11)
[2023-01-06] MEDS: 0.9 % Sodium Chloride 1,000 ML 125 ML IVCONT (16:11)
[2023-01-06] MEDS: Folic Acid 1 MG TABLET PO (16:13)
[2023-01-06] MEDS: PHENobarbitaL sodium 130 MG/ML VIAL IM Q3Hx2 247 MG IM ×2 (17:29→21:43)
--- NOTE | 2023-01-06 19:00 | PC.NURSE ---
Patient resting on stretcher with eyes closed. Patient wakes with tactile stimulation, alert and oriented. Patient is less shaky than when he came in and states that the hallucinations have subsided.
[2023-01-06 20:58] LABS: Glucose, Whole Blood 99 mg/dL (60-115)
[2023-01-06] MEDS: traZODone HCL 50 MG TABLET PO (22:27)
[2023-01-07] MEDS: 0.9 % Sodium Chloride 1,000 ML 125 ML IVCONT ×2 (02:15→08:48)
[2023-01-07 03:40] VITALS: BP 133/86; PULSE 63; RESP 18; TEMP 36.5; O2SAT 98
[2023-01-07 06:29] LABS: Hematocrit 39.8 % (42.0-52.0); Hemoglobin 13.6 g/dl (14.0-18.0); Mean Corpuscular HGB Conc 34.2 g/dl (31.0-36.0); Mean Corpuscular Hemoglobin 30.4 pg (27.0-33.0); Platelet Count 375 X10*3/uL (160-400); Red Blood Count 4.47 X10*6/uL (4.60-5.80); Red Cell Distribution Width 11.9 % (11.0-16.0)
[2023-01-07] MEDS: Omeprazole 20 MG CAPSULE.DR PO (06:42)
[2023-01-07 07:11] LABS: Anion Gap 12 (12-20); Blood Urea Nitrogen 10 mg/dL (9-16); Carbon Dioxide 28 mmol/L (22-29); Chloride 102 mmol/L (96-108); Creatinine Clr Calc Pharmacy 141.4; Estimated Glomerular Filt Rate > 60; Glucose Random 78 mg/dL (60-115); Potassium 3.2 mmol/L (3.3-5.1); Sodium 139 mmol/L (135-145)
[2023-01-07 07:19] VITALS: BP 114/68; PULSE 57; RESP 20; TEMP 37.3; O2SAT 96
[2023-01-07 07:25] LABS: Calcium 8.3 mg/dL (8.4-10.2)
[2023-01-07] MEDS: Potassium Chloride ER 20 MEQ TAB.ER.PRT 40 MEQ PO (08:47)
[2023-01-07] MEDS: Multivitamin TABLET 1 TAB PO (08:47)
[2023-01-07] MEDS: Folic Acid 1 MG TABLET PO (08:47)
[2023-01-07] MEDS: PHENobarbitaL 15 MG TABLET 45 MG PO (08:47)
[2023-01-07] MEDS: Thiamine HCL 100 MG in 0.9 % Sodium Chloride 100 ML 202 MG IV (08:48)
--- NOTE | 2023-01-07 09:48 | MHC.CM.PN ---
Lives w/ and child; no prev. services or equip., drives self. Independent and employed. D/C plan is to return to home w/ and child via . CM to follow.
[2023-01-07 11:09] VITALS: BP 125/67; PULSE 76; RESP 20; TEMP 36.7; O2SAT 98
--- NOTE | 2023-01-07 13:29 | MHC.RECOVRN ---
This flex o writer operator met with patient after addiction consult was placed. Patient reports was doing well since last hospitalization here at [facility]. Patient reports was taking Naltrexone, prescibed by [facility], attending recovery meetings and engaged in a routine. Patient reports about a month ago, went to stay in [place]. Patient reports a recurrence, for past 3-4 weeks, drinking daily varying amounts. Patient reports had tried to stop, however withdrawals were significant, pt reports in the past had experienced nausea/vomitting. Pt upon returning to [place], immediately presented at [facility] for concerns of ETOH withdrawal. Patient reports, has appt on Monday01/10/23 at [facility] for the Vivitrol injection. Patient reports plans to return to meetings and engage back in routine which helped maintain recovery. Patient tearful during substance use history evaluation. Patient reports previous trauma has effected patient to where pt experiences emotional and visual flashbacks. Patient reports trauma history, flashbacks and anxiety are triggers that lead to ETOH use. This flex o writer operator and patient reviewed recovery resources, patient interested in therapy referral. This flex o writer operator reviewed, to place referral to [facility]. Patient verbalized understanding.
[2023-01-07 13:37] LABS: Potassium 3.6 mmol/L (3.3-5.1)
--- NOTE | 2023-01-07 14:15 | P.DS_ITS ---
DS: Providers Provider Date of Service: 01/07/23 Date of admission: 01/06/23 14:58 Date of discharge: 01/07/23 Primary care physician: Do Moody NP Consults: 01/06/23 15:03 Addiction Medicine Routine Consulting Provider: Addiction Covering Reason for consultation: alcohol dependence Has provider been notified: No Attending physician on discharge: Reji Donovan Discharging clinician: Kamini Pichardo DS: Diagnosis Discharge Diagnosis (1) Alcohol withdrawal syndrome: Status: Acute DS: Summary Hospital Course Hospital Course: From H&P on day of admission This is a 32-year-old male who presents to the emergency department with vomiting and stating that he wants to stop drinking.? He states that he was admitted to the hospital in November for alcohol withdrawal.? Following that admission he has 3 weeks of sobriety a which time he was taking naltrexone.? He lost his insurance and was no longer able to take this medication or go to the meetings he had been attending.? The past several weeks he has been drinking 16-24 [employer] harder lemonade. His last drink was last night at 11 pm.? On arrival to the emergency department he was tachycardic and diaphoretic.? He was scoring a 38 on the CIWA scale.? He received IV Ativan and was started on phenobarbital protocol.? At this time he appears awake, alert and oriented and not tremulous. Alcohol dependence with alcohol withdrawal Phenobarbital protocol initiated in the emergency department with improvement in symptoms. initially scoring 38 on CIWA. He was treated with Thiamine, folic acid supplementation. Magnesium within normal limits. He is currently scoring 1 on the CIWA scale for mild anxiety. He is awake, alert with no hallucinations. He is not diaphoretic or tachycardic. He feels much improved and is eager to return home. He has already reached out to [facility] to schedule a follow-up appointment on 01/10. He was seen and evaluated by addiction medicine and resources were given but he feels that he has a good plan in place to attempt to maintain his sobriety. Leukocytosis resolved and was likely a result of hemoconcentration. He has remained afebrile. Potassium was replaced and improved with supplementation. Time Spent with Patient Time attestation: Total time managing care of this patient today ____ minutes. Discharge coordination time: Greater than 30 minutes Quality: Safe Use of Opioids Does Pt have an Active Cancer Diagnosis on the Problem List?: No Quality: Stroke Does the patient have a stroke diagnosis?: No Physical Exam Vital Signs: Vital Signs: Last Vital Signs Temp 98.0 F 01/07/23 11:09 Pulse 76 01/07/23 11:09 Resp 20 01/07/23 11:09 BP 125/67 01/07/23 11:09 Pulse Ox 98 01/07/23 11:09 O2 Del Method Room Air 01/07/23 11:09 BMI result Body Mass Index 29.8 Const: Other: not tremulous General: cooperative, comfortable, no acute distress, alert and awake Nutritional Appearance: average body habitus Orientation/consciousness: patient oriented x3 Resp: Effort & Inspection: normal respiratory effort, able to speak in complete sentences, respiratory distress and uses accessory muscles Auscultation: clear to auscultation bilaterally Cardio: Rate: regular rate Heart sounds: S1 normal heart sound present and S2 normal heart sound present GI: Inspection: No distended Palpation (GI): Soft to palpation and nontender Neuro: General: patient oriented x3, moves all extremities and CN's II-XI intact bilaterally Extrem: General: Yes no pedal edema DS: Data Data Completed and Pending Completed studies during hospitalization [Text1]: Procedures Detoxification Services for Substance Abuse Treatment (11/07/22) Labs on day of discharge: Laboratory Results - last 24 hr 01/06/23 01/07/23 01/07/23 20:54 05:57 05:57 WBC 10.0 RBC 4.47 L D Hgb 13.6 L D Hct 39.8 L MCV 89.0 MCH 30.4 MCHC 34.2 RDW 11.9 Plt Count 375 MPV 9.0 L Absolute Nucleated RBC 0.000 Nucleated RBC % (auto) 0.0 Sodium 139 Potassium 3.2 L Chloride 102 Carbon Dioxide 28 Anion Gap 12 BUN 10 Creatinine 0.82 Estim Creat Clear Calc 141.4 Estimated GFR > 60 POC Glucose 99 Random Glucose 78 Calcium 8.3 L D Magnesium 2.0 01/07/23 13:24 WBC RBC Hgb Hct MCV MCH MCHC RDW Plt Count MPV Absolute Nucleated RBC Nucleated RBC % (auto) Sodium Potassium 3.6 Chloride Carbon Dioxide Anion Gap BUN Creatinine Estim Creat Clear Calc Estimated GFR POC Glucose Random Glucose Calcium Magnesium Discharge Plan Discharge Anticipated Discharge Date/Time: 01/07/23 14:12 Patient Disposition: Home, Self-Care Discharge Diagnosis: alcohol dependence with withdrawal Referrals: Do [facility] [Primary Care Provider] - 1 Week Discharge Medications: New folic acid 1 mg Tablet 1 mg PO DAILY 30 Days Qty: 30 0RF thiamine HCl (vitamin B1) 100 mg tablet 100 mg PO DAILY 30 Days Qty: 30 0RF Continued omeprazole 20 mg Capsule,Delayed Release(Dr/Ec) 20 mg PO DAILY@0630 Discharge Orders: Discharge Order (Routine); Ordered 01/07/23 Ordered By: Kamini Pichardo Activity on Discharge: As tolerated Stand Alone Forms: Patient Portal Discharge page Care Plan Goals: Stay sober from alcohol Health Concerns: Alcohol use disorder with acute alcohol withdrawal Plan of Treatment: Do not drink alcohol Take thiamine, folic acid supplementation Follow-up with [facility] 01/10 for vivitrol injection and resume AA as was previously helpful Assessment: See discharge summary
--- NOTE | 2023-01-07 14:24 | MHC.CM.PN ---
order home, self care. CM acknowledged.
== END 2023-01-07 15:01 | disposition home or self-care (01) | DRG 775 ==
LOC: HO.ED 14:43 → HO.EDOVER 15:29 → HO.IMC 17:13
PROVIDERS: Physician Assistant; Physician Assistant Medical; Admitting Provider Physician Assistant Medical; Emergency Provider Emergency Medicine; PCP Registered Nurse; Visit Provider Physician Assistant Medical
DX: F10.239 Alcohol dependence with withdrawal, unspecified (principal); D72.829 Elevated white blood cell count, unspecified; K21.9 Gastro-esophageal reflux disease without esophagitis; F32.A Depression, unspecified; F41.9 Anxiety disorder, unspecified; Z87.891 Personal history of nicotine dependence; Z91.141 Patient's other noncompliance with medication regimen due to financial hardship; Z79.899 Other long term (current) drug therapy
CPT/HCPCS: 36415; 80048; 80053; 80143; 80179; 80307; 82947; 83690; 83735; 84132; 85025; 85027; 85610; 85730; 93005; 99285; J2060; J2405; J2560; J3411

== ENCOUNTER 2023-01-14 06:40 | Inpatient (IN) | payer OTHER, SELFPAY ==
[2023-01-14] VITALS (8 sets, daily range): BP systolic 101–139; BP diastolic 58–116; PULSE 68–142; RESP 18–22; TEMP 36–37.4; O2SAT 94–100; BMI 28.9
--- NOTE | ~2023-01-14 | XR_ITS ---
EXAMINATION: XR CHEST CLINICAL INFORMATION: Shortness of breath COMPARISON: Previous chest x-ray most recent November 2022 TECHNIQUE: Frontal view of the chest was obtained. FINDINGS: No significant abnormality is noted involving the heart, lungs, mediastinum, bony thorax or soft tissues. XR/XR chest 1V IMPRESSION: Unremarkable examination.
--- NOTE | ~2023-01-14 | CT_ITS ---
EXAMINATION: CT HEAD WITHOUT CONTRAST, CT CERVICAL SPINE WITHOUT CONTRAST CLINICAL INFORMATION: Fall. Head strike. EtOH. Neck pain COMPARISON: None. TECHNIQUE: Multidetector CT examination of the head is performed without contrast. Multidetector CT of the cervical spine without contrast. Multiplanar postprocessing This CT examination was performed using dose optimization techniques as appropriate, variously including the following: *Automated exposure control *Adjustment of mA and/or kV according to patient size (this includes techniques or standardized protocols for targeted exams where dose is matched to indication/reason for exam; i.e. extremities or head) *Use of iterative reconstruction technique DLP: 1344 mGy-cm FINDINGS: Head CT: There is no evidence of a recent intracranial hemorrhage or extra-axial collection. The midline structures are nondisplaced. The ventricles, cisterns, and sulci are within normal limits. There is no evidence of an intra-axial mass. There are no suspicious focal areas of abnormal brain attenuation. The rivas-white interface is within normal limits. There is no evidence of acute territorial infarct. There is thickening within the nasal cavity and at least a small amount of thickening in the maxillary sinuses No acute skull fracture demonstrated Cervical CT: No cervical fracture or subluxation. No focal lesion or loss of volume. No suspicious abnormality in the visualized apex of the chest CT/CT head/brain wo IV con IMPRESSION: 1. There is no evidence of a recent intracranial hemorrhage. 2. No acute infarct. 3. No acute fracture or subluxation of the cervical spine
--- NOTE | ~2023-01-14 | CT_ITS ---
EXAMINATION: CT HEAD WITHOUT CONTRAST, CT CERVICAL SPINE WITHOUT CONTRAST CLINICAL INFORMATION: Fall. Head strike. EtOH. Neck pain COMPARISON: None. TECHNIQUE: Multidetector CT examination of the head is performed without contrast. Multidetector CT of the cervical spine without contrast. Multiplanar postprocessing This CT examination was performed using dose optimization techniques as appropriate, variously including the following: *Automated exposure control *Adjustment of mA and/or kV according to patient size (this includes techniques or standardized protocols for targeted exams where dose is matched to indication/reason for exam; i.e. extremities or head) *Use of iterative reconstruction technique DLP: 1344 mGy-cm FINDINGS: Head CT: There is no evidence of a recent intracranial hemorrhage or extra-axial collection. The midline structures are nondisplaced. The ventricles, cisterns, and sulci are within normal limits. There is no evidence of an intra-axial mass. There are no suspicious focal areas of abnormal brain attenuation. The rivas-white interface is within normal limits. There is no evidence of acute territorial infarct. There is thickening within the nasal cavity and at least a small amount of thickening in the maxillary sinuses No acute skull fracture demonstrated Cervical CT: No cervical fracture or subluxation. No focal lesion or loss of volume. No suspicious abnormality in the visualized apex of the chest CT/CT cervical spine wo IV con IMPRESSION: 1. There is no evidence of a recent intracranial hemorrhage. 2. No acute infarct. 3. No acute fracture or subluxation of the cervical spine
--- NOTE | 2023-01-14 06:59 | ED.ALCOHOL ---
HPI - Alcohol General Chief Complaint: ETOH/Substance Use Stated Complaint: diff breathing quest seizure Time Seen by Provider: 01/14/23 06:57 Source: patient Mode of arrival: ambulatory Limitations: no limitations History of Present Illness HPI narrative: This is a 32-year-old male history of alcohol abuse disorder with history of alcohol withdrawal syndrome, anxiety and depression presenting to the emergency department seeking detox and telling me he thinks he is in withdrawal. Patient reports drinking 30-40 beers a day last drink was at 02:00. He reports his found him on the floor after having what she called a seizure, patient does not recall this episode. He also reports cocaine use. He is telling me he feels anxious, he is hearing and seeing things that are not there, he is having headache that is diffuse in nature. Patient also reports associated nausea and vomiting. And he is telling me he has severe chest pain and shortness of breath. Patient is unsure how long he was on the ground for. Patient is not on blood thinners. He does tell me he has a history of alcohol withdrawal seizures. [facility] 29 Related Data Home Medications Medication Instructions Recorded Confirmed omeprazole 20 mg capsule,delayed 20 mg PO DAILY@0630 08/11/22 01/06/23 release Previous Rx's Medication Instructions Recorded folic acid 1 mg tablet 1 mg PO DAILY 30 days #30 tabs 01/07/23 thiamine HCl (vitamin B1) 100 mg 100 mg PO DAILY 30 days #30 tabs 01/07/23 tablet Allergies Allergy/AdvReac Type Severity Reaction Status Date / Time No Known Allergies Allergy Verified 08/11/22 08:14 Review of Systems Review of Systems: Constitutional : No Weight loss, No Fever, No Chills, No Fatigue, + Malaise ENT/Mouth : No sore throat, No Rhinorrhea Eyes: No Eye Pain, No Swelling, No Redness Cardiovascular : No Chest Pain, No SOB, No Dyspnea on Exertion, No Orthopnea, No Edema, No Palpitations Respiratory : No Cough, No Sputum, No Wheezing Gastrointestinal : No Nausea, No Vomiting, No Diarrhea, No Constipation, No abdominal Pain, No Hematochezia, No Melena Genitourinary : No Dysuria, No Urinary Frequency, No Hematuria, Musculoskeletal : No joint pain, No Myalgias, No Joint Swelling Skin : No Skin Lesions, No rash Neuro : No Weakness, No Numbness, No Dizziness, + Headache Psych : + Anxiety/Panic, No Depression All other systems reviewed and are negative Yes all other systems are reviewed and are negative [facility] Past Medical History Attestation statement: The following information was validated with the patient. Source: old records reviewed and nursing notes reviewed Medical History Anxiety and depression ETOH abuse History of seizure due to alcohol withdrawal Family History Family History Other Diabetes Social History Social History Household Members: Spouse Housing: House Do you presently have visiting nurse or other home services: No Alcohol intake: current Alcohol intake frequency: 3 or more drinks per day Alcohol type: beer Patient Tobacco Use Status: Former Tobacco user Substance Use Type: Crack/Cocaine and Marijuana Advance Directives: Yes Advance Directives on File: Yes Advance Directives Date on File: 11/07/22 service: No Current occupational status: employed Physical Exam ED Vital Signs: Vital Signs - 24 hr 01/14/23 06:42 01/14/23 07:43 01/14/23 08:08 Temperature 96.8 F 99.0 F Pulse Rate 142 H 109 H 100 Respiratory Rate 22 H 20 20 Blood Pressure 139/116 H 134/93 H 137/94 H Pulse Oximetry 95 94 94 Oxygen Delivery Method Room Air Room Air Room Air 01/14/23 08:08 Temperature 99.0 F Pulse Rate 99 Respiratory Rate 20 Blood Pressure 137/94 H Pulse Oximetry Oxygen Delivery Method BMI result Body Mass Index 28.9 Patient is noted to be tachycardic, hypertensive. Appearance: Alert.? Oriented X3.? No acute distress.? +Diaphoresis. + anxious appearing Head: Normocephalic, atraumatic, no step-offs or deformities Eyes: Pupils equal, round and reactive to light.? ENT: Pharynx normal.?+ tongue fasciculation Neck: Normal inspection.? Neck supple.? CVS: + Rapid rate normal rhythm likely sinus tachycardia..Pulses normal.? Respiratory: No respiratory distress.? Breath sounds normal.? Abdomen: Soft and nontender.? Skin: Skin warm and dry.? Normal skin color.? Normal skin turgor.? Extremities: No lower extremity edema.? No calf ttp. 5/5 strength to bilateral upper and lower extremities Neuro: Oriented X 3.? No motor deficit.? No sensory deficit. CN 2-12 intact Course Reevaluation(s) Reevaluation #1: CBC appears to be around patient's baseline. However hemoglobin and hematocrit slightly higher than usual hemoconcentration likely secondary to acute dehydration. Chemistry with no acute electrolyte abnormalities requiring intervention. Ethanol level 68. CT of head and cervical spine unremarkable. Patient's CIWA improving. Plan is for hospital admission. Time: 08:15 Reevaluation #2: CIWA score of 7. Patient now denies tactile, auditory and visual hallucinations. Patient to be admitted to the hospital. Tachycardia improved. A in a normal sinus rhythm on the monitor. Time: 09:10 Medical Decision Making Medical Decision Making [facility] [place] Narrative: 1908 32-year-old male presents with nausea, vomiting, diaphoresis, anxiety, hallucinations clinic he is in acute alcohol withdrawal last drink to a.m. current daily drinker 20-30 beers a night. History of alcohol withdrawal seizures. Physical exam with diaphoresis, anxiety, resting tremors, tongue fasciculations, rapid rate regular rhythm. On exam patient is dry heaving and vomiting. His vital signs significant for tachycardia hypertension. Concerns for acute alcohol withdrawal, delirium tremens, autonomic dysfunction. Will rule out intracranial hemorrhage, cervical spine fracture dislocation due to fall, unclear story. Will also rule out rhabdomyolysis. Will rule out electrolyte abnormalities and polysubstance abuse. Plan labs, urine, imaging. Will initiate phenobarbital protocol the loading dose of 15 due to patient's heavy drinking. Will initiate seizure protocols. Patient's nurse at the bedside to initiate an IV and give IV fluids. Differential Diagnosis Differential Diagnoses: The differential diagnosis associated with the presentation includes Concerns for acute alcohol withdrawal, delirium tremens, autonomic dysfunction. Will rule out intracranial hemorrhage, cervical spine fracture dislocation due to fall, unclear story. Will also rule out rhabdomyolysis. Will rule out electrolyte abnormalities and polysubstance abuse. Admission/Observation Consideration of admission/observation: Escalation of care including admission/observation considered Lab Data [facility] [place] Lab Attestation statement: I reviewed the patient's lab results. 01/14/23 07:10 01/14/23 07:10 Labs: Lab Results 01/14/23 01/14/23 01/14/23 Range/Units 07:10 07:10 07:10 WBC 7.6 (4.8-10.8) X10*3/uL RBC 5.29 (4.60-5.80) X10*6/uL Hgb 16.5 D (14.0-18.0) g/dl Hct 46.5 (42.0-52.0) % MCV 87.9 (80.0-98.0) fL MCH 31.2 (27.0-33.0) pg MCHC 35.5 (31.0-36.0) g/dl RDW 12.1 (11.0-16.0) % Plt Count 485 H D (160-400) X10*3/uL MPV 8.6 L (9.4-12.4) fL Immature Gran % (Auto) 0.4 (0.0-0.4) % Neut % (Auto) 52.6 (45-73) % Lymph % (Auto) 30.7 (20-40) % [place] % (Auto) 12.3 H (2-11) % Eos % (Auto) 2.9 (0-4) % Baso % (Auto) 1.1 (0-2) % Lymph # (Auto) 2.3 (1.2-4.9) X10*3/uL [place] # (Auto) 0.9 (0.1-1.2) X10*3/uL Eos # (Auto) 0.2 (0.0-0.4) X10*3/uL Baso # (Auto) 0.1 (0.0-0.2) X10*3/uL Abs Immat Gran (auto) 0.03 (0.00-0.03) X10*3/uL Absolute Neuts (auto) 4.0 (2.0-8.3) x10*3/uL Absolute Nucleated RBC 0.000 (0.0-0.012) X10*3/uL Nucleated RBC % (auto) 0.0 (0.0-0.2) /100WBC PT 11.3 (10.0-13.1) SEC INR 1.0 (0.9-1.1) Sodium 139 (135-145) mmol/L Potassium 3.5 (3.3-5.1) mmol/L Chloride 104 (96-108) mmol/L Carbon Dioxide 20 L (22-29) mmol/L Anion Gap 19 (12-20) BUN < 3 L (9-16) mg/dL Creatinine 0.85 (0.5-1.4) mg/dL Estim Creat Clear Calc 134.4 Estimated GFR > 60 Random Glucose 126 H (60-115) mg/dL Calcium 10.0 D (8.4-10.2) mg/dL Total Bilirubin 0.5 (0.0-1.0) mg/dL AST 52 H (5-37) U/L ALT 60 H (0-40) U/L Alkaline Phosphatase 59 (39-117) U/L Total Creatine Kinase 131 (38-174) U/L Troponin I High Sens (<3.5-35.0) ng/L Total Protein 7.4 (6.5-8.0) g/dL Albumin 4.3 (3.5-5.0) g/dL Ethyl Alcohol 68 mg/dL 01/14/23 Range/Units 07:10 WBC (4.8-10.8) X10*3/uL RBC (4.60-5.80) X10*6/uL Hgb (14.0-18.0) g/dl Hct (42.0-52.0) % MCV (80.0-98.0) fL MCH (27.0-33.0) pg MCHC (31.0-36.0) g/dl RDW (11.0-16.0) % Plt Count (160-400) X10*3/uL MPV (9.4-12.4) fL Immature Gran % (Auto) (0.0-0.4) % Neut % (Auto) (45-73) % Lymph % (Auto) (20-40) % [place] % (Auto) (2-11) % Eos % (Auto) (0-4) % Baso % (Auto) (0-2) % Lymph # (Auto) (1.2-4.9) X10*3/uL [place] # (Auto) (0.1-1.2) X10*3/uL Eos # (Auto) (0.0-0.4) X10*3/uL Baso # (Auto) (0.0-0.2) X10*3/uL Abs Immat Gran (auto) (0.00-0.03) X10*3/uL Absolute Neuts (auto) (2.0-8.3) x10*3/uL Absolute Nucleated RBC (0.0-0.012) X10*3/uL Nucleated RBC % (auto) (0.0-0.2) /100WBC PT (10.0-13.1) SEC INR (0.9-1.1) Sodium (135-145) mmol/L Potassium (3.3-5.1) mmol/L Chloride (96-108) mmol/L Carbon Dioxide (22-29) mmol/L Anion Gap (12-20) BUN (9-16) mg/dL Creatinine (0.5-1.4) mg/dL Estim Creat Clear Calc Estimated GFR Random Glucose (60-115) mg/dL Calcium (8.4-10.2) mg/dL Total Bilirubin (0.0-1.0) mg/dL AST (5-37) U/L ALT (0-40) U/L Alkaline Phosphatase (39-117) U/L Total Creatine Kinase (38-174) U/L Troponin I High Sens 7.5 D (<3.5-35.0) ng/L Total Protein (6.5-8.0) g/dL Albumin (3.5-5.0) g/dL Ethyl Alcohol mg/dL Independent Interpretation I performed an independent interpretation of an: EKG (VENTRICULAR RATE OF 1 0 WEAK, [place] NORMAL, QRS NORMAL, QT/QTC NORMAL. EKG WITH SINUS TACHYCARDIA NO ST ELEVATIONS OR INVERSIONS CONCERNING FOR ACUTE ISCHEMIA.), Plain X-Ray and CT Scan Radiology Impression Discussion of test interpretation with radiology: I have reviewed the radiologist's reading. External Record Review External record reviewed: Inpatient record, Office record, Outpatient record, Prior outpatient labs, Prior outpatient radiology, Primary care record and Outside ED record Core Measures AMI core measures followed: Yes Measure exclusions: not indicated Medications Administered Discontinued Medications Generic Name Dose Route Start Last Admin Trade Name Freq PRN Reason Stop Dose Admin Sodium Chloride 1,000 mls @ 999 mls/hr 01/14/23 07:15 01/14/23 07:34 Ns IV 01/14/23 08:15 999 mls/hr .Q1H1M EL Administration Sodium Chloride 1,000 mls @ 999 mls/hr 01/14/23 07:45 01/14/23 08:20 Ns IV 01/14/23 08:45 999 mls/hr .Q1H1M EL Administration Thiamine HCl 200 mg/ Sodium 102 mls @ 204 mls/hr 01/14/23 08:15 01/14/23 08:32 Chloride IV 01/14/23 08:44 204 mls/hr ONCE ONE Administration Lorazepam 2 mg 01/14/23 06:59 01/14/23 07:16 Lorazepam 2 Mg/Ml Vial IVPUSH 01/14/23 07:00 2 mg ONCE ONE Administration Morphine Sulfate 4 mg 01/14/23 07:07 01/14/23 07:16 Morphine Sulfate 4 Mg/Ml Cartridge IVPUSH 01/14/23 07:08 4 mg ONCE ONE Administration Protocol Phenobarbital Sodium 65 mg 01/14/23 07:39 01/14/23 08:20 Phenobarbital Sodium 65 Mg/Ml Vial IVPUSH 01/14/23 07:40 Not Given ONCE ONE Phenobarbital Sodium 410 mg 01/14/23 08:00 01/14/23 08:10 Phenobarbital Sodium 130 Mg/Ml Im Once IM 01/14/23 08:01 410 mg ONCE ONE Administration Critical Care Time Critical Care Time Critical Care Time: Yes Total Critical Care Time: 45 Attestation: I attest to this time spent taking care of the patient, obtaining history, physical, reviewing labs, imaging, speaking to my attending, speaking to specialist. Discharge Plan Discharge Clinical Impression: Delirium tremens, Alcohol use disorder Patient Disposition: Still a Patient Prescriptions: No Action omeprazole 20 mg Capsule,Delayed Release(Dr/Ec) 20 mg PO DAILY@0630 folic acid 1 mg Tablet 1 mg PO DAILY 30 Days Qty: 30 0RF thiamine HCl (vitamin B1) 100 mg tablet 100 mg PO DAILY 30 Days Qty: 30 0RF
--- NOTE | 2023-01-14 07:03 | ECG_ITS ---
Test Reason : CHEST PAIN Blood Pressure : / mmHG Vent. Rate : 108 BPM Atrial Rate : 108 BPM P-R Int : 156 ms QRS Dur : 086 ms QT Int : 314 ms P-R-T Axes : 044 044 035 degrees QTc Int : 420 ms Sinus tachycardia Nonspecific T wave abnormality Abnormal ECG When compared with ECG of 06-JAN-2023 11:42, No significant change was found Referred By: Nieves Molina Electronically Signed By:Bernabe Mcgill
[2023-01-14 07:13] LABS: MANUAL DIFF FLAG NO
[2023-01-14 07:14] LABS: Basophils Absolute Auto 0.1 X10*3/uL (0.0-0.2); Basophils Percent Auto 1.1 % (0-2); Eosinophils Absolute Auto 0.2 X10*3/uL (0.0-0.4); Eosinophils Percent Auto 2.9 % (0-4); Hematocrit 46.5 % (42.0-52.0); Hemoglobin 16.5 g/dl (14.0-18.0); Imm Gran Abs Auto 0.03 X10*3/uL (0.00-0.03); Imm Gran Pct Auto 0.4 % (0.0-0.4); Lymphocytes Absolute Auto 2.3 X10*3/uL (1.2-4.9); Lymphocytes Percent Auto 30.7 % (20-40); Mean Corpuscular HGB Conc 35.5 g/dl (31.0-36.0); Mean Corpuscular Hemoglobin 31.2 pg (27.0-33.0); Mean Corpuscular Volume 87.9 fL (80.0-98.0); Mean Platelet Volume 8.6 fL (9.4-12.4); Monocytes Absolute Auto 0.9 X10*3/uL (0.1-1.2); Monocytes Percent Auto 12.3 % (2-11); Neutrophils Percent Auto 52.6 % (45-73); Platelet Count 485 X10*3/uL (160-400); Red Blood Count 5.29 X10*6/uL (4.60-5.80); Red Cell Distribution Width 12.1 % (11.0-16.0); White Blood Count 7.6 X10*3/uL (4.8-10.8)
[2023-01-14] MEDS: Morphine Sulfate 4 MG/ML CARTRIDGE IVPUSH (07:16)
[2023-01-14] MEDS: LORazepam 2 MG/ML VIAL IVPUSH (07:16)
[2023-01-14 07:22] LABS: Prothrombin Time 11.3 SEC (10.0-13.1)
--- NOTE | 2023-01-14 07:30 | PC.NURSE ---
alert and oriented, vomiting in room. iv established, medicated per the oct. pt taken for ct scan at this time
[2023-01-14] MEDS: 0.9 % Sodium Chloride 1,000 ML 999 ML IV ×2 (07:34→08:20)
[2023-01-14 07:40] LABS: Alanine Aminotransferase 60 U/L (0-40); Albumin Level 4.3 g/dL (3.5-5.0); Alkaline Phosphatase 59 U/L (39-117); Anion Gap 19 (12-20); Aspartate Amino Transferase 52 U/L (5-37); Bilirubin Total 0.5 mg/dL (0.0-1.0); Blood Urea Nitrogen < 3 mg/dL (9-16); Carbon Dioxide 20 mmol/L (22-29); Chloride 104 mmol/L (96-108); Creatinine Clr Calc Pharmacy 134.4; Estimated Glomerular Filt Rate > 60; Ethanol 68 mg/dL; Glucose Random 126 mg/dL (60-115); Potassium 3.5 mmol/L (3.3-5.1); Sodium 139 mmol/L (135-145); Total Protein 7.4 g/dL (6.5-8.0)
[2023-01-14 07:42] LABS: Troponin-I High Sensitivity 7.5 ng/L (<3.5-35.0)
[2023-01-14] MEDS: PHENobarbitaL sodium 130 MG/ML IM ONCE 410 MG IM (08:10)
[2023-01-14] MEDS: Thiamine HCL 200 MG in 0.9 % Sodium Chloride 100 ML 204 MG IV (08:32)
[2023-01-14] MEDS: Folic Acid 1 MG in 0.9 % Sodium Chloride 50 ML 100.4 MG IV (09:12)
--- NOTE | 2023-01-14 09:13 | P.HPHOSP_ITS ---
History of Present Illness Date of Service: 01/14/23 Chief Complaint: Alcohol withdrawal 2-year-old male history of alcohol abuse disorder with history of alcohol withdrawal syndrome, anxiety and depression presenting to the emergency department seeking detox and telling me he thinks he is in withdrawal.? Patient reports drinking 30-40 beers a day last drink was at 02:00.? He reports his found him on the floor after having what she called a seizure, patient does not recall this episode.? He also reports cocaine use.? He is telling me he feels anxious, he is hearing and seeing things that are not there, he is having headache that is diffuse in nature.? Patient also reports associated nausea and vomiting.??In the emergency room received Ativan 2 mg started on phenobarb protocol Review of Systems Review of Systems: Denies chest pain Denies shortness of breath Denies nausea vomiting diarrhea Denies fever chills PMFSH Medical History Anxiety and depression ETOH abuse History of seizure due to alcohol withdrawal Family History Other Diabetes Social History Household Members: Spouse Housing: House Do you presently have visiting nurse or other home services: No Alcohol intake: current Alcohol intake frequency: 3 or more drinks per day Alcohol type: beer Patient Tobacco Use Status: Former Tobacco user Substance Use Type: Crack/Cocaine and Marijuana Advance Directives Date on File: 11/07/22 service: No Current occupational status: employed Meds Allergies Allergy/AdvReac Type Severity Reaction Status Date / Time No Known Allergies Allergy Verified 08/11/22 08:14 Active Medications: Current Medications Pharmacy Consult (Consult Rx Etoh Phenob Im/Po) 1 each MISCELLANE ONCE PRN; Protocol PRN Reason: Consult order Pharmacy Consult (Consult Rx Perform Med Rec) 1 each MISCELLANE ONCE PRN PRN Reason: Consult order Phenobarbital (Phenobarbital 15 Mg Tablet) 45 mg PO BID EL Stop: 01/16/23 09:01 Phenobarbital (Phenobarbital 15 Mg Tablet) 15 mg PO BID EL Stop: 01/18/23 09:01 Phenobarbital (Phenobarbital 15 Mg Tablet) 15 mg PO DAILY EL Stop: 01/20/23 09:01 Phenobarbital Sodium (Phenobarbital Sodium 130 Mg/Ml Vial Im Q3hx2) 308 mg IM Q3H EL Stop: 01/14/23 14:01 Home Medications Medication Instructions Recorded Confirmed Last Taken Type omeprazole 20 mg capsule,delayed 20 mg PO DAILY@0630 08/11/22 01/06/23 01/05/23 History release Physical Exam Vital Signs and Narrative: Vital Signs: Last Vital Signs Temp 99.0 F 01/14/23 08:08 Pulse 99 01/14/23 08:08 Resp 20 01/14/23 08:08 BP 137/94 H 01/14/23 08:08 Pulse Ox 94 01/14/23 08:08 O2 Del Method Room Air 01/14/23 08:08 BMI result Body Mass Index 28.9 Const: Other: Awake alert oriented x3. Appears common bed Resp: Other: Clear to auscultation bilaterally no rales rhonchi or wheezes Cardio: Other: No S4; positive S1-S2; no S3 murmurs rubs or gallops GI: Other: Soft nontender nondistended normoactive bowel sounds. No palpable liver edge Neuro: Other: Cranial nerves 2-12 grossly intact as tested. Motor is 5/5 all extremities. Sensation is intact. Cognition appropriate Extrem: Other: No edema bilaterally Results Labs 01/14/23 07:10 01/14/23 07:10 Labs: Laboratory Results - last 24 hr 01/14/23 01/14/23 01/14/23 07:10 07:10 07:10 MCV 87.9 MCH 31.2 MCHC 35.5 RDW 12.1 Plt Count 485 H D MPV 8.6 L Immature Gran % (Auto) 0.4 Neut % (Auto) 52.6 Lymph % (Auto) 30.7 [place] % (Auto) 12.3 H Eos % (Auto) 2.9 Baso % (Auto) 1.1 Lymph # (Auto) 2.3 [place] # (Auto) 0.9 Eos # (Auto) 0.2 Baso # (Auto) 0.1 Abs Immat Gran (auto) 0.03 Absolute Neuts (auto) 4.0 Absolute Nucleated RBC 0.000 Nucleated RBC % (auto) 0.0 PT 11.3 INR 1.0 Anion Gap 19 Estim Creat Clear Calc 134.4 Estimated GFR > 60 Random Glucose 126 H Calcium 10.0 D Total Bilirubin 0.5 AST 52 H ALT 60 H Alkaline Phosphatase 59 Total Creatine Kinase 131 Troponin I High Sens Total Protein 7.4 Albumin 4.3 Ethyl Alcohol 68 01/14/23 07:10 MCV MCH MCHC RDW Plt Count MPV Immature Gran % (Auto) Neut % (Auto) Lymph % (Auto) [place] % (Auto) Eos % (Auto) Baso % (Auto) Lymph # (Auto) [place] # (Auto) Eos # (Auto) Baso # (Auto) Abs Immat Gran (auto) Absolute Neuts (auto) Absolute Nucleated RBC Nucleated RBC % (auto) PT INR Anion Gap Estim Creat Clear Calc Estimated GFR Random Glucose Calcium Total Bilirubin AST ALT Alkaline Phosphatase Total Creatine Kinase Troponin I High Sens 7.5 D Total Protein Albumin Ethyl Alcohol Imaging Radiologist's Impressions: Impressions Chest X-Ray 01/14/23 07:32 IMPRESSION: Unremarkable examination. Cervical Spine CT 01/14/23 07:38 IMPRESSION: 1. There is no evidence of a recent intracranial hemorrhage. 2. No acute infarct. 3. No acute fracture or subluxation of the cervical spine Head CT 01/14/23 07:38 IMPRESSION: 1. There is no evidence of a recent intracranial hemorrhage. 2. No acute infarct. 3. No acute fracture or subluxation of the cervical spine Assessment and Plan (1) Alcohol withdrawal syndrome: Status: Acute Plan 32-year-old male with a history of alcohol use disorder presents with alcohol withdrawal seizures. Admits to 30-40 beers per day over the last 2 weeks. In ER received Ativan and phenobarb per protocol 1. Alcohol use disorder -observe on CIWA scale -seizure precautions -phenobarb as per protocol (adjust as indicated) -addiction medicine consult Full code Mikhail Will require at least 2 midnights inpatient stay to treat alcohol withdrawal with phenobarb. This cannot be achieved a lesser acute facility Time Spent With Patient Time: Total time managing care of this patient today ____ minutes. Quality Stroke Does the patient have a stroke diagnosis?: No VTE Prior VTE?: No VTE Risk Level:: Medical - moderate - high VTE Device Contraindication: Treatment Not Indicated VTE Drug Contraindication: N/A - Med Ordered
--- NOTE | 2023-01-14 09:37 | PC.NURSE ---
continues to be alert and oriented, resting comfortably in bed with seizure precautions in place. vss.
--- NOTE | 2023-01-14 11:46 | PHA.MEDREC ---
Pharmacy Consult ? Medication Reconciliation Pharmacy has completed the medication reconciliation. spoke with the patient. He is currently taking omeprazole only.
[2023-01-14] MEDS: PHENobarbitaL sodium 130 MG/ML VIAL IM Q3Hx2 308 MG IM ×2 (11:59→14:51)
[2023-01-14 12:47] LABS: Amphetamine Screen Urine Not Detected (Not Detect); Barbiturates, Urine POSITIVE (Not Detect); Benzodiazepines Screen Urine Not Detected (Not Detect); Cannabinoid Screen Urine POSITIVE (Not Detect); Cocaine Screen Urine POSITIVE (Not Detect); Fentanyl, urine Not Detected (Not Detect); Opiate Screen Urine POSITIVE (Not Detect); Phencyclidine Screen Urine Not Detected (Not Detect)
--- NOTE | 2023-01-14 16:45 | PC.NURSE ---
pt continues to sleep in stretcher. vss
[2023-01-14] MEDS: 0.9 % Sodium Chloride Flush 3 ML SYRINGE IVFLUSH (17:10)
--- NOTE | 2023-01-14 19:36 | PC.NURSE ---
Assumed care of pt. Pt sleeping, easily rousable, no acute medical or behavioral concerns at this time. VSS, WCGREYSON.
[2023-01-14] MEDS: PHENobarbitaL 15 MG TABLET 45 MG PO (20:30)
[2023-01-14] MEDS: traZODone HCL 25 MG HALFTAB PO (20:41)
[2023-01-15] MEDS: 0.9 % Sodium Chloride Flush 3 ML SYRINGE IVFLUSH ×2 (01:07→08:32)
[2023-01-15 01:43] VITALS: BP 118/80; PULSE 72; RESP 16; O2SAT 95
--- NOTE | 2023-01-15 03:51 | PC.NURSE ---
Pt sleeping, easily rousable, no acute medical or behavioral concnerns at this time, WCTM.
[2023-01-15 06:15] VITALS: BMI 29.9
[2023-01-15 06:28] VITALS: BP 124/86; PULSE 76; RESP 20; TEMP 36.8; O2SAT 99
--- NOTE | 2023-01-15 06:39 | PC.NURSE ---
Pt came from ED via a stretcher, alert and orientedx4. On a CIWA protocol. Pt is calm. Ambulatory. NOt scoring in CIWA. Pt is worried that he is gonna lose his new job that is going to start tomorrow. Pt denies SI. He looks sad. Pt reported of being depress. He wanted to go home. Camera is place inside the room to monitor. Siderails padded.
[2023-01-15 07:30] VITALS: BP 117/67; PULSE 63; RESP 20; TEMP 36.8; O2SAT 98
[2023-01-15] MEDS: Enoxaparin Sodium 40 MG/0.4 ML SYRINGE SUBCUT (08:31)
[2023-01-15] MEDS: PHENobarbitaL 15 MG TABLET 45 MG PO (08:31)
[2023-01-15 10:49] VITALS: BP 116/66; PULSE 62; RESP 20; TEMP 36.7; O2SAT 99
--- NOTE | 2023-01-15 11:34 | PM.DS ---
DS: Providers Provider Date of Service: 01/15/23 Date of admission: 01/14/23 09:12 Date of discharge: 01/15/23 Primary care physician: Do Moody NP Consults: 01/14/23 06:45 Consult to Care Team Stat Comment: Reason for consultation: detox DS: Diagnosis Discharge Diagnosis (1) Alcohol withdrawal syndrome: Status: Acute DS: Summary Hospital Course Hospital Course: 32-year-old male with history of alcohol abuse presents with alcohol withdrawal seizures. He was admitted on he phenobarb protocol but had no further seizures. On the morning of discharge she was encouraged to say but wishes to leave. He understands the risks and can repeat them back to me. He will sign out AMA Time Spent with Patient Time attestation: Total time managing care of this patient today ____ minutes. Discharge coordination time: Greater than 30 minutes Quality: Safe Use of Opioids Does Pt have an Active Cancer Diagnosis on the Problem List?: No Quality: Stroke Does the patient have a stroke diagnosis?: No Physical Exam Vital Signs: Vital Signs: Last Vital Signs Temp 98.1 F 01/15/23 10:49 Pulse 62 01/15/23 10:49 Resp 20 01/15/23 10:49 BP 116/66 01/15/23 10:49 Pulse Ox 99 01/15/23 10:49 O2 Del Method Room Air 01/15/23 10:49 BMI result Body Mass Index 29.9 Const: Other: Awake alert oriented x3. Appears common bed Resp: Other: Clear to auscultation bilaterally no rales rhonchi or wheezes Cardio: Other: No S4; positive S1-S2; no S3 murmurs rubs or gallops GI: Other: Soft nontender nondistended normoactive bowel sounds. No palpable liver edge Neuro: Other: Cranial nerves 2-12 grossly intact as tested. Motor is 5/5 all extremities. Sensation is intact. Cognition appropriate Extrem: Other: No edema bilaterally DS: Data Data Completed and Pending Completed studies during hospitalization [Text1]: Procedures Detoxification Services for Substance Abuse Treatment (01/06/23) Labs on day of discharge: Laboratory Results - last 24 hr 01/14/23 01/14/23 08:16 12:31 Total Creatine Kinase 130 Urine Opiates Screen POSITIVE H Urine Fentanyl Screen Not Detected Ur Barbiturates Screen POSITIVE H Ur Phencyclidine Scrn Not Detected Ur Amphetamines Screen Not Detected U Benzodiazepines Scrn Not Detected Urine Cocaine Screen POSITIVE H U Marijuana (THC) Screen POSITIVE H Discharge Plan Discharge Anticipated Discharge Date/Time: 01/15/23 11:33 Patient Disposition: Left Against Medical Advice Discharge Diagnosis: Alcohol withdrawal Referrals: Do Moody [facility] [Primary Care Provider] - 1 Week Discharge Medications: Continued omeprazole 20 mg Capsule,Delayed Release(Dr/Ec) 20 mg PO DAILY@0630 Discharge Orders: Discharge Order (Routine); Ordered 01/15/23 Ordered By: Alphonse Murphy Diet: Advance to usual diet Activity on Discharge: As tolerated Care Plan Goals: AMA Health Concerns: AMA Plan of Treatment: AMA Assessment: AMA
== END 2023-01-15 11:20 | disposition left against medical advice (07) | DRG 770 ==
LOC: HO.ED 08:07 → HO.EDOVER 09:15 → HO.IMC 01-15 05:47
PROVIDERS: Physician Assistant; Admitting Provider Hospitalist; Emergency Provider Emergency Medicine; PCP Registered Nurse; Visit Provider Hospitalist
DX: F10.131 Alcohol abuse with withdrawal delirium (principal); F32.A Depression, unspecified; F41.9 Anxiety disorder, unspecified; Y90.3 Blood alcohol level of 60-79 mg/100 ml; Z87.891 Personal history of nicotine dependence; Z79.899 Other long term (current) drug therapy
CPT/HCPCS: 36415; 70450; 71045; 72125; 80053; 80307; 82550; 84484; 85025; 85610; 93005; 99285; J1650; J2060; J2270; J2560; J3411

== ENCOUNTER 2023-02-18 17:08 | Emergency (ER) | payer OTHER, SELFPAY ==
[2023-02-18 17:20] VITALS: BP 140/90; PULSE 134; O2SAT 98; BMI 29.2
[2023-02-18 17:27] VITALS: PULSE 119
--- NOTE | 2023-02-18 17:32 | PC.NURSE ---
Alert and oriented. Patient vomiting multiple times since arrival. States he can hear voices in his head and sees people running around the halls. States these disturbances started about 10 minutes ago . Sweating and reporting feeling like he has the chills. Tremors and arms and hands observed. Patient reports he has been drinking heavily for the past few weeks. States last drink of unknown quantity was this am. Reports used what he thought was cocaine yesterday but is not sure it was actually cocaine because it caused him to freak out reports 5/10 chest/abdominal pain that started yesterday after the cocaine use. Denies HI/SI.
--- NOTE | 2023-02-18 17:42 | ECG_ITS ---
Test Reason : PAIN Blood Pressure : / mmHG Vent. Rate : 092 BPM Atrial Rate : 092 BPM P-R Int : 146 ms QRS Dur : 070 ms QT Int : 350 ms P-R-T Axes : 049 060 043 degrees QTc Int : 432 ms Sinus rhythm with marked sinus arrhythmia Otherwise normal ECG When compared with ECG of 14-JAN-2023 07:30, Non-specific change in ST segment in Anterior leads Nonspecific T wave abnormality no longer evident in Lateral leads Referred By: Michael Zambrano Electronically Signed By:CHAO RUIZ MD
--- NOTE | 2023-02-18 17:54 | ED_ITS ---
HPI - General Adult General Chief complaint: ETOH/Substance Use Stated complaint: ETOH NAUSEA VOMITING Time Seen by Provider: 02/18/23 17:26 Source: patient, RN notes reviewed and old records reviewed Mode of arrival: EMS History of Present Illness HPI narrative: 32-year-old male presents for evaluation of ?alcohol withdrawal. ? Patient has a history of alcohol dependence and alcohol withdrawal seizures. His admitted last month for similar He reports that he was sober for about 1 month but relapsed a few days ago. He reports nausea and vomiting. He reports that he had been drinking 30-40 beers over the last few days He reports his last drink was this morning The patient states that he had an unwitnessed seizure earlier today He remembers ?waking up and then I went to the fire department for help. ? Patient reports ?pain all over including chest pain. ? Patient admits to using cocaine yesterday He endorses auditory hallucinations of ?I keep hearing a screeching sound. Related Data Home Medications Medication Instructions Recorded Confirmed omeprazole 20 mg capsule,delayed 20 mg PO DAILY@0630 08/11/22 01/14/23 release Previous Rx's Medication Instructions Recorded ondansetron 4 mg disintegrating 4 mg PO Q8H PRN nausea and 02/18/23 tablet vomiting #20 tabs Allergies Allergy/AdvReac Type Severity Reaction Status Date / Time No Known Allergies Allergy Verified 08/11/22 08:14 Review of Systems Constitutional: Constitutional: Reports as per HPI, Denies fever(s) and Denies headache(s) ENT: Denies headache(s) Cardiovascular: Cardiovascular: Reports chest pain and Denies dyspnea Respiratory: Respiratory: Denies cough and Denies dyspnea Gastrointestinal: Gastrointestinal: Denies abdominal pain and Denies constipation Genitourinary: Genitourinary: Denies difficulty urinating and Denies dysuria Neurologic: Denies headache(s) and Denies focal weakness Psychiatric: Psychiatric: Reports auditory hallucinations and Reports panic attacks PMFSH Past Medical History Medical History Anxiety and depression ETOH abuse History of seizure due to alcohol withdrawal Family History Family History Other Diabetes Social History Social History Household Members: Family Housing: Apartment Do you presently have visiting nurse or other home services: No Alcohol intake: current Alcohol intake frequency: 3 or more drinks per day Alcohol type: beer Patient Tobacco Use Status: Former Tobacco user Smoked in Last 30 Days: Yes Use of substances other than those prescribed or required for medical reasons: Yes Substance Use Type: Crack/Cocaine and Marijuana Substance Use Frequency: Chronic Longstanding Last Used Substance: Days (ago) Advance Directives: Yes Advance Directives on File: Yes Advance Directives Date on File: 11/07/22 service: No Current occupational status: employed Physical Exam ED Vital Signs: Vital Signs - 24 hr 02/18/23 18:29 02/18/23 19:05 02/18/23 20:45 Temperature 98.3 F Pulse Rate 97 92 72 Respiratory Rate 18 9 L 16 Blood Pressure 142/81 H 124/95 H 112/64 Pulse Oximetry 99 98 100 Oxygen Delivery Method Room Air Room Air Room Air BMI result Body Mass Index 29.2 Const General: alert, awake and diaphoretic Nutritional Appearance: well nourished Orientation/consciousness: patient oriented x3 HENMT Head: Yes normocephalic and Yes atraumatic Eyes Eyelids: Yes eyelids normal Conjunctivae: conjunctivae normal Sclerae: sclerae normal Corneas: corneas normal Pupils: Equal, round and reactive pupils present EOM: EOMs intact bilaterally Neck Neck: Yes full ROM Resp Effort & Inspection: normal respiratory effort, able to speak in complete sentences and not labored Cardio Rate: tachycardic Rhythm: regular rhythm GI Inspection: No distended Palpation (GI): Soft to palpation, not firm, nontender, no guarding and not rigid Skin General skin exam: no rashes or lesions noted and elasticity normal Neuro General: patient oriented x3 and Unable to assess gait Cranial nerves: Yes Equal, round and reactive pupils present and Yes Bilaterally intact EOM present Cognition (Neuro): normal cognition Gait exam (Neuro): Unable to assess gait Motor exam (neuro): Tremors during motor activity present and Asterixis during motor activity present Extrem Other: Moving all extremities well without any obvious deformities Course Reevaluation(s) Reevaluation #1: Patient re-evaluated, he feels much better, his CIWA is a 4. He reports that he got any e-mail from [facility] and he was accepted into detox for Monday. He does no longer wishes to discuss with the care team like to be discharged. He is not overly sedated. Will give him a dose of the Ativan p.o. and will withhold any further phenobarbital doses. Time: 20:52 Medications Administered Discontinued Medications Generic Name Dose Route Start Last Admin Trade Name Ramírez PRN Reason Stop Dose Admin Acetaminophen 650 mg 02/18/23 19:11 02/18/23 20:04 Acetaminophen 325 Mg Tablet PO 02/18/23 19:12 650 mg ONCE ONE Administration Sodium Chloride 1,000 mls @ 999 mls/hr 02/18/23 18:15 02/18/23 18:32 Ns IV 02/18/23 19:15 999 mls/hr .Q1H1M EL Administration Thiamine HCl 500 mg/ Sodium 105 mls @ 210 mls/hr 02/18/23 18:04 02/18/23 19:50 Chloride IV 02/18/23 18:33 Infused ONCE ONE Infusion Folic Acid 1 mg/ Sodium 50.2 mls @ 100.4 mls/hr 02/18/23 18:04 02/18/23 20:08 Chloride IV 02/18/23 18:33 100.4 mls/hr ONCE ONE Administration Ondansetron HCl 4 mg 02/18/23 19:11 02/18/23 20:04 Ondansetron Hcl 4 Mg/2 Ml Vial IVPUSH 02/18/23 19:12 4 mg ONCE ONE Administration Phenobarbital Sodium 273 mg 02/18/23 18:00 02/18/23 18:01 Phenobarbital Sodium 130 Mg/Ml Im Once IM 02/18/23 18:01 273 mg ONCE ONE Administration Protocol Medical Decision Making Medical Decision Making MDM Narrative: 32-year-old male presents for evaluation of likely alcohol withdrawal symptoms. He reports that he was drinking 30-40. Daily and stop drinking this morning. He reports a seizure at home that was not witnessed. Patient is tachycardic, restless reporting nausea, diaphoretic reporting auditory hallucinations in the ear hurt and talking to himself. Per nursing, the CIWA score is 23. Will treat with phenobarb protocol. Is on the conveyor monitor. Will also treat with IV fluids, thiamine and folic acid Lab Data 02/18/23 18:22 02/18/23 18:22 Labs: Lab Results 02/18/23 02/18/23 02/18/23 Range/Units 18:22 18:22 18:22 WBC 11.1 H (4.8-10.8) X10*3/uL RBC 5.83 H (4.60-5.80) X10*6/uL Hgb 17.9 (14.0-18.0) g/dl Hct 50.2 (42.0-52.0) % MCV 86.1 (80.0-98.0) fL MCH 30.7 (27.0-33.0) pg MCHC 35.7 (31.0-36.0) g/dl RDW 12.0 (11.0-16.0) % Plt Count 479 H (160-400) X10*3/uL MPV 8.8 L (9.4-12.4) fL Immature Gran % (Auto) 0.3 (0.0-0.4) % Neut % (Auto) 68.7 (45-73) % Lymph % (Auto) 23.9 (20-40) % Divide % (Auto) 5.9 (2-11) % Eos % (Auto) 0.7 (0-4) % Baso % (Auto) 0.5 (0-2) % Lymph # (Auto) 2.6 (1.2-4.9) X10*3/uL Divide # (Auto) 0.7 (0.1-1.2) X10*3/uL Eos # (Auto) 0.1 (0.0-0.4) X10*3/uL Baso # (Auto) 0.1 (0.0-0.2) X10*3/uL Abs Immat Gran (auto) 0.03 (0.00-0.03) X10*3/uL Absolute Neuts (auto) 7.6 (2.0-8.3) x10*3/uL Absolute Nucleated RBC 0.000 (0.0-0.012) X10*3/uL Nucleated RBC % (auto) 0.0 (0.0-0.2) /100WBC PT 10.6 (10.0-13.1) SEC INR 0.9 (0.9-1.1) APTT 25.6 L (26.0-36.4) SEC Sodium 142 (135-145) mmol/L Potassium 3.2 L (3.3-5.1) mmol/L Chloride 102 (96-108) mmol/L Carbon Dioxide 22 (22-29) mmol/L Anion Gap 21 H (12-20) BUN 4 L (9-16) mg/dL Creatinine 0.85 (0.5-1.4) mg/dL Estim Creat Clear Calc 135.2 Estimated GFR > 60 Random Glucose 98 (60-115) mg/dL Calcium 11.0 H D (8.4-10.2) mg/dL Magnesium 1.9 (1.6-2.6) mg/dL Total Bilirubin 0.7 (0.0-1.0) mg/dL AST 45 H (5-37) U/L ALT 36 (0-40) U/L Alkaline Phosphatase 74 (39-117) U/L Troponin I High Sens (<3.5-35.0) ng/L Total Protein 9.2 H (6.5-8.0) g/dL Albumin 5.4 H (3.5-5.0) g/dL Lipase 14 (8-78) U/L Ethyl Alcohol 96 mg/dL // Range/Units 18:22 WBC (4.8-10.8) X10*3/uL RBC (4.60-5.80) X10*6/uL Hgb (14.0-18.0) g/dl Hct (42.0-52.0) % MCV (80.0-98.0) fL MCH (27.0-33.0) pg MCHC (31.0-36.0) g/dl RDW (11.0-16.0) % Plt Count (160-400) X10*3/uL MPV (9.4-12.4) fL Immature Gran % (Auto) (0.0-0.4) % Neut % (Auto) (45-73) % Lymph % (Auto) (20-40) % Divide % (Auto) (2-11) % Eos % (Auto) (0-4) % Baso % (Auto) (0-2) % Lymph # (Auto) (1.2-4.9) X10*3/uL Divide # (Auto) (0.1-1.2) X10*3/uL Eos # (Auto) (0.0-0.4) X10*3/uL Baso # (Auto) (0.0-0.2) X10*3/uL Abs Immat Gran (auto) (0.00-0.03) X10*3/uL Absolute Neuts (auto) (2.0-8.3) x10*3/uL Absolute Nucleated RBC (0.0-0.012) X10*3/uL Nucleated RBC % (auto) (0.0-0.2) /100WBC PT (10.0-13.1) SEC INR (0.9-1.1) APTT (26.0-36.4) SEC Sodium (135-145) mmol/L Potassium (3.3-5.1) mmol/L Chloride (96-108) mmol/L Carbon Dioxide (22-29) mmol/L Anion Gap (12-20) BUN (9-16) mg/dL Creatinine (0.5-1.4) mg/dL Estim Creat Clear Calc Estimated GFR Random Glucose (60-115) mg/dL Calcium (8.4-10.2) mg/dL Magnesium (1.6-2.6) mg/dL Total Bilirubin (0.0-1.0) mg/dL AST (5-37) U/L ALT (0-40) U/L Alkaline Phosphatase (39-117) U/L Troponin I High Sens < 2.7 D (<3.5-35.0) ng/L Total Protein (6.5-8.0) g/dL Albumin (3.5-5.0) g/dL Lipase (8-78) U/L Ethyl Alcohol mg/dL Discharge Plan Discharge Clinical Impression: Alcohol use disorder Patient Disposition: Home, Self-Care Instructions: Abuse of Alcohol (ED) Additional Instructions: You may use Zofran as needed for any further nausea or vomiting. Return for any new or worsening symptoms Follow-up with detox as planned Prescriptions: New ondansetron 4 mg tablet,disintegrating 4 mg PO Q8H PRN (Reason: nausea and vomiting) Qty: 20 0RF No Action omeprazole 20 mg Capsule,Delayed Release(Dr/Ec) 20 mg PO DAILY@0630
[2023-02-18] MEDS: PHENobarbitaL sodium 130 MG/ML IM ONCE 273 MG IM (18:01)
[2023-02-18 18:27] LABS: MANUAL DIFF FLAG NO
[2023-02-18 18:29] VITALS: BP 142/81; PULSE 97; RESP 18; TEMP 36.8; O2SAT 99
[2023-02-18 18:29] LABS: Basophils Absolute Auto 0.1 X10*3/uL (0.0-0.2); Basophils Percent Auto 0.5 % (0-2); Eosinophils Absolute Auto 0.1 X10*3/uL (0.0-0.4); Eosinophils Percent Auto 0.7 % (0-4); Hematocrit 50.2 % (42.0-52.0); Hemoglobin 17.9 g/dl (14.0-18.0); Imm Gran Abs Auto 0.03 X10*3/uL (0.00-0.03); Imm Gran Pct Auto 0.3 % (0.0-0.4); Lymphocytes Absolute Auto 2.6 X10*3/uL (1.2-4.9); Lymphocytes Percent Auto 23.9 % (20-40); Mean Corpuscular HGB Conc 35.7 g/dl (31.0-36.0); Mean Corpuscular Hemoglobin 30.7 pg (27.0-33.0); Mean Corpuscular Volume 86.1 fL (80.0-98.0); Mean Platelet Volume 8.8 fL (9.4-12.4); Monocytes Absolute Auto 0.7 X10*3/uL (0.1-1.2); Monocytes Percent Auto 5.9 % (2-11); Neutrophils Absolute Auto 7.6 x10*3/uL (2.0-8.3); Neutrophils Percent Auto 68.7 % (45-73); Platelet Count 479 X10*3/uL (160-400); Red Blood Count 5.83 X10*6/uL (4.60-5.80); White Blood Count 11.1 X10*3/uL (4.8-10.8)
[2023-02-18] MEDS: 0.9 % Sodium Chloride 1,000 ML 999 ML IV (18:32)
[2023-02-18 18:37] LABS: INTERNATIONAL NORM RATIO 0.9 (0.9-1.1); Prothrombin Time 10.6 SEC (10.0-13.1)
[2023-02-18 18:40] LABS: Partial Thromboplastin Time 25.6 SEC (26.0-36.4)
[2023-02-18] MEDS: Thiamine HCL 500 MG in 0.9 % Sodium Chloride 100 ML 210 MG IV (18:48)
--- NOTE | 2023-02-18 18:50 | PC.NURSE ---
Alert and oriented. NSR on monitor. Reports feeling better after pheno ross dose. Iv fluids and folic acid running per order.
[2023-02-18 18:51] LABS: Alanine Aminotransferase 36 U/L (0-40); Albumin Level 5.4 g/dL (3.5-5.0); Alkaline Phosphatase 74 U/L (39-117); Anion Gap 21 (12-20); Aspartate Amino Transferase 45 U/L (5-37); Bilirubin Total 0.7 mg/dL (0.0-1.0); Blood Urea Nitrogen 4 mg/dL (9-16); Carbon Dioxide 22 mmol/L (22-29); Chloride 102 mmol/L (96-108); Creatinine Clr Calc Pharmacy 135.2; Estimated Glomerular Filt Rate > 60; Ethanol 96 mg/dL; Glucose Random 98 mg/dL (60-115); Lipase 14 U/L (8-78); Magnesium 1.9 mg/dL (1.6-2.6); Potassium 3.2 mmol/L (3.3-5.1); Sodium 142 mmol/L (135-145); Total Protein 9.2 g/dL (6.5-8.0)
[2023-02-18 19:00] LABS: Troponin-I High Sensitivity < 2.7 ng/L (<3.5-35.0)
[2023-02-18 19:05] VITALS: BP 124/95; PULSE 92; RESP 9; O2SAT 98
[2023-02-18] MEDS: Acetaminophen 325 MG TABLET 650 MG PO (20:04)
[2023-02-18] MEDS: ondansetron HCL 4 MG/2 ML VIAL IVPUSH (20:04)
[2023-02-18] MEDS: Folic Acid 1 MG in 0.9 % Sodium Chloride 50 ML 100.4 MG IV (20:08)
[2023-02-18 20:45] VITALS: BP 112/64; PULSE 72; RESP 16; O2SAT 100
--- NOTE | 2023-02-18 20:49 | PC.NURSE ---
Pt reports he is feeling much better, no headache, ciwa -4. slight tremor. Pt going to go to [facility] on Monday or monday. will come pick him up. Jordy MULLER in to see patient discussed plan and will put in for discharge.
--- NOTE | 2023-02-18 21:06 | PC.NURSE ---
Per Jordy, ED provider hold IM phenobarbital, administer Lorazepam 2 mg PO.
[2023-02-18] MEDS: LORazepam 1 MG TABLET 2 MG PO (21:08)
== END 2023-02-18 21:19 | disposition home or self-care (01) ==
PROVIDERS: Physician Assistant; Emergency Provider Emergency Medicine
DX: F10.90 Alcohol use, unspecified, uncomplicated (principal); Y90.4 Blood alcohol level of 80-99 mg/100 ml; R00.0 Tachycardia, unspecified; R44.0 Auditory hallucinations; F41.8 Other specified anxiety disorders; Z87.891 Personal history of nicotine dependence; Z79.899 Other long term (current) drug therapy
CPT/HCPCS: 36415; 80053; 80307; 83690; 83735; 84484; 85025; 85610; 85730; 93005; 96365; 96367; 96372; 96374; 99285; J2405; J2560; J3411

== ENCOUNTER → 2023-02-18 17:42 | Outpatient (BNV) | payer OTHER, SELFPAY | PROVIDERS: Emergency Provider Emergency Medicine; Visit Provider Internal Medicine Cardiovascular Disease | DX: I49.9 Cardiac arrhythmia, unspecified (principal) | CPT/HCPCS: 93010 ==

== ENCOUNTER 2023-03-14 19:00 | Emergency (ER) | payer OTHER, SELFPAY | END 2023-03-14 20:20 | disposition left against medical advice (07) | PROVIDERS: Emergency Provider Emergency Medicine | DX: F19.239 Other psychoactive substance dependence with withdrawal, unspecified (principal) ==

== ENCOUNTER 2023-03-22 20:31 | Inpatient (IN) | payer OTHER, SELFPAY ==
[2023-03-22 20:44] VITALS: BP 131/107; BP 153/100; PULSE 114; PULSE 115; RESP 18; TEMP 36.5; O2SAT 95; O2SAT 96; BMI 26.3
--- NOTE | 2023-03-22 20:53 | ECG_ITS ---
Test Reason : SUBSTANCE ABUSE Blood Pressure : / mmHG Vent. Rate : 132 BPM Atrial Rate : 132 BPM P-R Int : 190 ms QRS Dur : 080 ms QT Int : 250 ms P-R-T Axes : 073 060 054 degrees QTc Int : 370 ms Sinus tachycardia Septal infarct , age undetermined Nonspecific T wave abnormality Abnormal ECG When compared with ECG of 18-FEB-2023 18:25, Septal infarct is now Present Nonspecific T wave abnormality now evident in Inferior leads Nonspecific T wave abnormality now evident in Lateral leads Referred By: Loretta Garcia Electronically Signed By:EMILY MARCUS
[2023-03-22 21:12] LABS: Hematocrit 47.5 % (42.0-52.0); Hemoglobin 16.5 g/dl (14.0-18.0); Mean Corpuscular HGB Conc 34.7 g/dl (31.0-36.0); Mean Corpuscular Hemoglobin 30.7 pg (27.0-33.0); Mean Corpuscular Volume 88.3 fL (80.0-98.0); Mean Platelet Volume 8.8 fL (9.4-12.4); Platelet Count 457 X10*3/uL (160-400); Red Blood Count 5.38 X10*6/uL (4.60-5.80); Red Cell Distribution Width 12.8 % (11.0-16.0); White Blood Count 10.6 X10*3/uL (4.8-10.8)
[2023-03-22 21:21] LABS: Alanine Aminotransferase 33 U/L (0-40); Albumin Level 4.7 g/dL (3.5-5.0); Alkaline Phosphatase 60 U/L (39-117); Anion Gap 20 (12-20); Aspartate Amino Transferase 36 U/L (5-37); Bilirubin Total 0.3 mg/dL (0.0-1.0); Blood Urea Nitrogen < 3 mg/dL (9-16); Calcium 9.1 mg/dL (8.4-10.2); Carbon Dioxide 20 mmol/L (22-29); Chloride 107 mmol/L (96-108); Estimated Glomerular Filt Rate > 60; Glucose Random 128 mg/dL (60-115); Potassium 3.3 mmol/L (3.3-5.1); Sodium 144 mmol/L (135-145); Total Protein 8.3 g/dL (6.5-8.0)
[2023-03-22 21:28] LABS: Troponin-I High Sensitivity < 2.7 ng/L (<3.5-35.0)
[2023-03-22 21:30] VITALS: BP 125/86; PULSE 120; RESP 20; TEMP 36.9; O2SAT 99
--- NOTE | 2023-03-22 21:37 | ED_ITS ---
HPI - Alcohol General Chief Complaint: ETOH/Substance Use Stated Complaint: SEEKING DETOX, HALLUCINATIONS, COCAINE USE Time Seen by Provider: 03/22/23 20:44 Source: patient Mode of arrival: ambulatory Limitations: no limitations History of Present Illness HPI narrative: Patient alcoholic since age 17 drinks about 70 packs of beer been tapering down amount of beer for last 1 week to stop drinking does have history of depression. Today he drank about 30 cans and sniff a bag of cocaine hallucinating earlier today seeing people history of DTs in the past. On arrival patient was tachycardic nauseated and vomiting denies any abdominal pain patient is tearful like to stop drinking but unable to do that Related Data Home Medications Medication Instructions Recorded Confirmed esomeprazole magnesium 40 mg 40 mg PO DAILY 03/22/23 03/22/23 capsule,delayed release folic acid 1 mg tablet 1 mg PO DAILY 03/22/23 03/22/23 omeprazole 40 mg capsule,delayed 40 mg PO BID 03/22/23 03/22/23 release thiamine HCl (vitamin B1) 100 mg 100 mg PO DAILY 03/22/23 03/22/23 tablet Allergies Allergy/AdvReac Type Severity Reaction Status Date / Time No Known Allergies Allergy Verified 08/11/22 08:14 Review of Systems Review of Systems: Yes all other systems are reviewed and are negative PMFSH Past Medical History Medical History Anxiety and depression ETOH abuse History of seizure due to alcohol withdrawal Family History Family History Other Diabetes Social History Social History Household Members: Family Housing: Apartment Do you presently have visiting nurse or other home services: No Alcohol intake: current Alcohol intake frequency: 3 or more drinks per day Alcohol type: beer Patient Tobacco Use Status: Former Tobacco user Smoked in Last 30 Days: Yes Use of substances other than those prescribed or required for medical reasons: Yes Substance Use Type: Crack/Cocaine Substance Use Frequency: Occasionally Advance Directives: Yes Advance Directives on File: Yes Advance Directives Date on File: 11/07/22 service: No Current occupational status: employed Physical Exam ED Vital Signs: Vital Signs - 24 hr 03/22/23 20:44 03/22/23 21:30 03/22/23 22:29 Temperature 97.7 F 98.4 F Pulse Rate 114 H 120 H 120 H Respiratory Rate 18 20 16 Blood Pressure 131/107 H 125/86 113/70 Pulse Oximetry 95 99 98 Oxygen Delivery Method Room Air Room Air Room Air BMI result Body Mass Index 26.3 Appearance: Alert. Oriented X3. No acute distress. Anxious nauseated visual hallucination+ Eyes: PERRLA, No Nystagmus ENT: Pharynx normal. Oral Mucosa moist Neck: Normal inspection. Neck supple. CVS: Tachycardic regular rhythm ,. Pulses normal. Respiratory: No respiratory distress. Equal air entry bilateral, no wheezing/rales/rhonchi Abdomen: Soft and nontender. Bowel sounds are present, no mass palpable, no CVA tenderness Skin: Skin warm and dry. Normal skin color. Normal skin turgor. Extremities: No lower extremity edema. No calf tenderness Neuro: Oriented X 3. No motor deficit. No sensory deficit.No cerebellar signs , cranial nerves II-XII intact Medical Decision Making Medical Decision Making [facility] Narrative: Patient alcoholic with alcohol withdrawal CIWA scale of 20 will start patient on phenobarb admit for alcohol withdrawal. Differential Diagnosis Differential Diagnoses: The differential diagnosis associated with the presentation includes Alcohol withdrawal/metabolic disturbances/anxiety/substance abuse Admission/Observation Consideration of admission/observation: Escalation of care including admission/observation considered Consult Healthcare Provider Management of the patient was discussed with: Hospitalist Lab Data [facility] Lab Attestation statement: I reviewed the patient's lab results. 03/22/23 21:01 03/22/23 21:01 Labs: Lab Results 03/22/23 03/22/23 03/22/23 Range/Units 21:01 21:01 21:01 WBC 10.6 (4.8-10.8) X10*3/uL RBC 5.38 (4.60-5.80) X10*6/uL Hgb 16.5 (14.0-18.0) g/dl Hct 47.5 (42.0-52.0) % MCV 88.3 (80.0-98.0) fL MCH 30.7 (27.0-33.0) pg MCHC 34.7 (31.0-36.0) g/dl RDW 12.8 (11.0-16.0) % Plt Count 457 H (160-400) X10*3/uL MPV 8.8 L (9.4-12.4) fL Absolute Nucleated RBC 0.000 (0.0-0.012) X10*3/uL Nucleated RBC % (auto) 0.0 (0.0-0.2) /100WBC Sodium 144 (135-145) mmol/L Potassium 3.3 (3.3-5.1) mmol/L Chloride 107 (96-108) mmol/L Carbon Dioxide 20 L (22-29) mmol/L Anion Gap 20 (12-20) BUN < 3 L (9-16) mg/dL Creatinine 0.87 (0.5-1.4) mg/dL Estim Creat Clear Calc 131.0 Estimated GFR > 60 Random Glucose 128 H (60-115) mg/dL Calcium 9.1 D (8.4-10.2) mg/dL Total Bilirubin 0.3 (0.0-1.0) mg/dL AST 36 (5-37) U/L ALT 33 (0-40) U/L Alkaline Phosphatase 60 (39-117) U/L Troponin I High Sens < 2.7 (<3.5-35.0) ng/L Total Protein 8.3 H (6.5-8.0) g/dL Albumin 4.7 (3.5-5.0) g/dL Ethyl Alcohol mg/dL 03/22/23 Range/Units 21:30 WBC (4.8-10.8) X10*3/uL RBC (4.60-5.80) X10*6/uL Hgb (14.0-18.0) g/dl Hct (42.0-52.0) % MCV (80.0-98.0) fL MCH (27.0-33.0) pg MCHC (31.0-36.0) g/dl RDW (11.0-16.0) % Plt Count (160-400) X10*3/uL MPV (9.4-12.4) fL Absolute Nucleated RBC (0.0-0.012) X10*3/uL Nucleated RBC % (auto) (0.0-0.2) /100WBC Sodium (135-145) mmol/L Potassium (3.3-5.1) mmol/L Chloride (96-108) mmol/L Carbon Dioxide (22-29) mmol/L Anion Gap (12-20) BUN (9-16) mg/dL Creatinine (0.5-1.4) mg/dL Estim Creat Clear Calc Estimated GFR Random Glucose (60-115) mg/dL Calcium (8.4-10.2) mg/dL Total Bilirubin (0.0-1.0) mg/dL AST (5-37) U/L ALT (0-40) U/L Alkaline Phosphatase (39-117) U/L Troponin I High Sens (<3.5-35.0) ng/L Total Protein (6.5-8.0) g/dL Albumin (3.5-5.0) g/dL Ethyl Alcohol 298 mg/dL Independent Interpretation I performed an independent interpretation of an: EKG Interpretation: Sinus tachycardia heart rate 132 beats per minute no acute ST-T changes, no acute ischemia Medications Administered Generic Name Dose Route Start Last Admin Trade Name Freq PRN Reason Stop Dose Admin Enoxaparin Sodium 40 mg 03/22/23 23:00 03/22/23 23:25 Enoxaparin Sodium 40 Mg/0.4 Ml Syringe SUBCUT 40 mg Q24H EL Administration Phenobarbital Sodium 226.2 mg 03/23/23 01:00 03/23/23 01:58 Phenobarbital Sodium 130 Mg/Ml Vial Im Q3hx2 IM 03/23/23 04:01 226.2 mg Q3H EL Administration Protocol Sodium Chloride 3 ml 03/23/23 00:00 03/23/23 00:11 0.9 % Sodium Chloride Flush 3 Ml Syringe IVFLUSH Not Given QSHIFT EL Discontinued Medications Generic Name Dose Route Start Last Admin Trade Name Freq PRN Reason Stop Dose Admin Famotidine 20 mg 03/22/23 22:52 03/22/23 23:07 Famotidine/Pf 20 Mg/2 Ml Vial IVPUSH 03/22/23 22:53 20 mg ONCE ONE Administration Sodium Chloride 1,000 mls @ 999 mls/hr 03/22/23 21:26 03/23/23 00:11 Ns IV 03/22/23 22:26 Infused .Q1H1M ONE Infusion Thiamine HCl 100 mg/ Sodium 101 mls @ 202 mls/hr 03/22/23 22:36 03/22/23 23:25 Chloride IV 03/22/23 23:05 202 mls/hr ONCE ONE Administration Sodium Chloride 1,000 mls @ 999 mls/hr 03/22/23 22:56 03/23/23 02:03 Ns IV 03/22/23 23:56 Infused .Q1H1M ONE Infusion Lorazepam 2 mg 03/22/23 21:26 03/22/23 21:39 Lorazepam 2 Mg/Ml Vial IVPUSH 03/22/23 21:27 2 mg ONCE ONE Administration Lorazepam 2 mg 03/22/23 22:52 03/22/23 23:07 Lorazepam 2 Mg/Ml Vial IVPUSH 03/22/23 22:53 2 mg ONCE ONE Administration Phenobarbital Sodium 301.6 mg 03/22/23 22:00 03/22/23 23:05 Phenobarbital Sodium 130 Mg/Ml Im Once IM 03/22/23 22:01 301.6 mg ONCE ONE Administration Protocol Prochlorperazine Edisylate 10 mg 03/22/23 22:52 03/22/23 23:08 Prochlorperazine Edisylate 10 Mg/2 Ml Vial IVPUSH 03/22/23 22:53 10 mg ONCE ONE Administration Discharge Plan Discharge Clinical Impression: Alcohol withdrawal delirium, Anxiety and depression Patient Disposition: Admitted As Inpatient
[2023-03-22] MEDS: 0.9 % Sodium Chloride 1,000 ML 999 ML IV (21:38)
[2023-03-22] MEDS: LORazepam 2 MG/ML VIAL IVPUSH ×2 (21:39→23:07)
[2023-03-22 21:47] LABS: Ethanol 298 mg/dL
--- NOTE | 2023-03-22 21:58 | PHA.MEDREC ---
Pharmacy Consult ? Medication Reconciliation Pharmacy has completed the medication reconciliation. Patient reported taking both esomperazole and omeprazole. To confirm he states I take omepraozle and also the omeprazole that begin with e . Rosendo Selby
--- NOTE | 2023-03-22 22:01 | PC.NURSE ---
PT BRENTON, walked into [facility], requesting detox reports he drank a 30 rack and used a back of cocaine. Pt reports he typically drinks about 70 beers a day. Hallucinatng a man wants his soul and will trade for mother who is . Also reports hearing music coming from the vents. Pt is tearful and apologetic requesting help. Labs draw, #20 IV placed in R-AC, EKG complete. Discussed with , MANASC 20, ordered fluids and IV ativan(administered).
[2023-03-22 22:29] VITALS: BP 113/70; PULSE 120; RESP 16; O2SAT 98
--- NOTE | 2023-03-22 22:38 | PM.IMHP ---
History of Present Illness Date of Service: 03/22/23 Chief Complaint: Alcohol withdrawal This is a 32-year-old male with pertinent history of alcohol use disorder who presents to the emergency department for concerns of alcohol withdrawal. Patient states his last drink was 2 hours prior to arrival. He admittedly drinks about 60-72 cans of beer per day. Patient states that he cut it into half this week and has been drinking 30 cans of beer per day. He has been having sweating, tremors and occasional auditory hallucinations since he cut back drinking. He does have a history of alcohol withdrawal seizures and delirium tremens. States he wants to go to detox and quit drinking. He denies fever, chills, nausea, vomiting, chest discomfort, palpitations, abdominal pain, changes in urinary or bowel habits. In the emergency department, he was initiated on phenobarb protocol Review of Systems Constitutional: Constitutional: Reports fatigue, Reports lethargy and Reports malaise Cardiovascular: Cardiovascular: Reports no additional cardiovascular complaints Respiratory: Respiratory: Reports no additional respiratory complaints Gastrointestinal: Gastrointestinal: Reports no additional gastrointestinal complaints Genitourinary: Genitourinary: Reports no additional male genitourinary complaints Psychiatric: Psychiatric: Reports irritability Endocrine: Endocrine: Reports fatigue PMFSH Medical History Anxiety and depression ETOH abuse History of seizure due to alcohol withdrawal Family History Other Diabetes Social History Household Members: Family Housing: Apartment Do you presently have visiting nurse or other home services: No Alcohol intake: current Alcohol intake frequency: 3 or more drinks per day Alcohol type: beer Patient Tobacco Use Status: Former Tobacco user Smoked in Last 30 Days: Yes Use of substances other than those prescribed or required for medical reasons: Yes Substance Use Type: Crack/Cocaine Substance Use Frequency: Occasionally Advance Directives: Yes Advance Directives on File: Yes Advance Directives Date on File: 11/07/22 service: No Current occupational status: employed Meds Allergies Allergy/AdvReac Type Severity Reaction Status Date / Time No Known Allergies Allergy Verified 08/11/22 08:14 Active Medications: Current Medications Folic Acid (Folic Acid 1 Mg Tablet) 1 mg PO DAILY EL Thiamine HCl 100 mg/ Sodium (Chloride) 101 mls @ 202 mls/hr IV ONCE ONE Stop: 03/22/23 23:05 Omeprazole (Omeprazole 20 Mg Capsule.) 20 mg PO DAILY@0630 [facility] Pharmacy Consult (Consult Rx Etoh Phenob Im/Po) 1 each MISCELLANE ONCE PRN; Protocol PRN Reason: Consult order Phenobarbital (Phenobarbital 30 Mg Tablet) 60 mg PO BID [facility]; Protocol Stop: 03/24/23 21:01 Phenobarbital (Phenobarbital 30 Mg Tablet) 30 mg PO BID [facility]; Protocol Stop: 03/26/23 21:01 Phenobarbital (Phenobarbital 30 Mg Tablet) 30 mg PO DAILY [facility]; Protocol Stop: 03/28/23 09:01 Phenobarbital Sodium (Phenobarbital Sodium 130 Mg/Ml Vial Im Q3hx2) 226.2 mg IM Q3H [facility]; Protocol Stop: 03/23/23 04:01 Thiamine HCl (Thiamine Hcl 100 Mg Tablet) 100 mg PO DAILY [facility] Home Medications Medication Instructions Recorded Confirmed Last Taken Type esomeprazole magnesium 40 mg 40 mg PO DAILY 03/22/23 03/22/23 Unknown History capsule,delayed release folic acid 1 mg tablet 1 mg PO DAILY 03/22/23 03/22/23 Unknown History omeprazole 40 mg capsule,delayed 40 mg PO BID 03/22/23 03/22/23 Unknown History release thiamine HCl (vitamin B1) 100 mg 100 mg PO DAILY 03/22/23 03/22/23 Unknown History tablet Physical Exam Vital Signs and Narrative: Vital Signs: Last Vital Signs Temp 98.4 F 03/22/23 21:30 Pulse 120 H 03/22/23 22:29 Resp 16 03/22/23 22:29 BP 113/70 03/22/23 22:29 Pulse Ox 98 03/22/23 22:29 O2 Del Method Room Air 03/22/23 22:29 BMI result Body Mass Index 26.3 Middle-aged male lying in bed in no distress Neck supple, no JVD Tachycardic with regular rhythm, S1-S2 heard Regular breath sounds bilaterally, no wheezing or crackles appreciated Abdomen soft nontender, no guarding, no rigidity Patient is awake, alert and oriented to self, place, time and person ; no focal motor deficit Psych: Normal mood No pedal edema Results Labs 03/22/23 21:01 03/22/23 21:01 Labs: Laboratory Results - last 24 hr 03/22/23 03/22/23 03/22/23 21:01 21:01 21:30 MCV 88.3 MCH 30.7 MCHC 34.7 RDW 12.8 Plt Count 457 H MPV 8.8 L Absolute Nucleated RBC 0.000 Nucleated RBC % (auto) 0.0 Anion Gap 20 Estim Creat Clear Calc 131.0 Estimated GFR > 60 Random Glucose 128 H Calcium 9.1 D Total Bilirubin 0.3 AST 36 ALT 33 Alkaline Phosphatase 60 Total Protein 8.3 H Albumin 4.7 Ethyl Alcohol 298 Assessment and Plan (1) Alcohol use disorder: Status: Acute Plan This is a 32-year-old male with pertinent history of alcohol use disorder who presents to the emergency department for concerns of alcohol withdrawal. #. Alcohol use disorder. With concerns for withdrawal. Initiated phenobarb protocol in the ER. Continue thiamine and folic acid. Consulting Addiction Team and care team. Resuscitated with IV crystalloids. UDS pending #. Gastroesophageal reflux disease: On PPI DVT prophylaxis: Lovenox Full code Time Spent With Patient Time: Total time managing care of this patient today ____ minutes. Quality Stroke Does the patient have a stroke diagnosis?: No VTE Prior VTE?: No VTE Risk Level:: Medical - moderate - high VTE Device Contraindication: Treatment Not Indicated VTE Drug Contraindication: N/A - Med Ordered
[2023-03-22 22:45] VITALS: BP 133/80; PULSE 101; RESP 18; O2SAT 99
[2023-03-22 22:58] LABS: Appearance Urine Clear; Color Urine Yellow; Glucose Urine UA Negative (Negative); Leukocyte Esterase Urine Negative (Negative); Nitrite Urine Negative (Negative); PH 6.5 (5.0-9.0); Specific Gravity - Urine <= 1.005 (1.005-1.025); Urine Blood Negative (Negative); Urine Ketones Negative (Negative); Urine Protein Negative (Neg-Trace)
[2023-03-22 23:03] LABS: Bacteria Urine None Seen (None Seen); Hyaline Casts Urine 0-2 /LPF (0-2); RBC Urine 0-2 /HPF (0-2); Squamous Epithelial Cell Urine 0-2 /HPF (0-2); WBC Urine 0-5 /HPF (0-5)
[2023-03-22] MEDS: PHENobarbitaL sodium 130 MG/ML IM ONCE 301.6 MG IM (23:05)
[2023-03-22] MEDS: Famotidine/PF 20 MG/2 ML VIAL IVPUSH (23:07)
[2023-03-22] MEDS: Prochlorperazine Edisylate 10 MG/2 ML VIAL IVPUSH (23:08)
[2023-03-22 23:18] LABS: Amphetamine Screen Urine Not Detected (Not Detect); Barbiturates, Urine POSITIVE (Not Detect); Benzodiazepines Screen Urine Not Detected (Not Detect); Cannabinoid Screen Urine POSITIVE (Not Detect); Cocaine Screen Urine POSITIVE (Not Detect); Fentanyl, urine Not Detected (Not Detect); Opiate Screen Urine Not Detected (Not Detect); Phencyclidine Screen Urine Not Detected (Not Detect)
[2023-03-22] MEDS: Enoxaparin Sodium 40 MG/0.4 ML SYRINGE SUBCUT (23:25)
[2023-03-22] MEDS: Thiamine HCL 100 MG in 0.9 % Sodium Chloride 100 ML 202 MG IV (23:25)
[2023-03-23] MEDS: 0.9 % Sodium Chloride 1,000 ML 999 ML IV (00:10)
[2023-03-23] MEDS: PHENobarbitaL sodium 130 MG/ML VIAL IM Q3Hx2 226.2 MG IM ×2 (01:58→05:15)
[2023-03-23 03:56] VITALS: BP 101/56; PULSE 85; RESP 23; O2SAT 97
[2023-03-23 04:59] LABS: MANUAL DIFF FLAG NO
[2023-03-23 05:03] LABS: Basophils Absolute Auto 0.1 X10*3/uL (0.0-0.2); Basophils Percent Auto 0.5 % (0-2); Eosinophils Absolute Auto 0.4 X10*3/uL (0.0-0.4); Hematocrit 41.2 % (42.0-52.0); Imm Gran Abs Auto 0.04 X10*3/uL (0.00-0.03); Imm Gran Pct Auto 0.3 % (0.0-0.4); Lymphocytes Absolute Auto 2.8 X10*3/uL (1.2-4.9); Lymphocytes Percent Auto 23.1 % (20-40); Mean Corpuscular Hemoglobin 30.6 pg (27.0-33.0); Mean Platelet Volume 8.8 fL (9.4-12.4); Monocytes Absolute Auto 1.3 X10*3/uL (0.1-1.2); Monocytes Percent Auto 10.7 % (2-11); Neutrophils Absolute Auto 7.6 x10*3/uL (2.0-8.3); Neutrophils Percent Auto 62.4 % (45-73); Platelet Count 380 X10*3/uL (160-400); Red Blood Count 4.58 X10*6/uL (4.60-5.80); Red Cell Distribution Width 12.8 % (11.0-16.0); White Blood Count 12.2 X10*3/uL (4.8-10.8)
[2023-03-23 05:18] LABS: Anion Gap 15 (12-20); Blood Urea Nitrogen 4 mg/dL (9-16); Calcium 8.4 mg/dL (8.4-10.2); Carbon Dioxide 23 mmol/L (22-29); Chloride 111 mmol/L (96-108); Creatinine Clr Calc Pharmacy 140.7; Estimated Glomerular Filt Rate > 60; Glucose Random 104 mg/dL (60-115); Potassium 3.6 mmol/L (3.3-5.1); Sodium 145 mmol/L (135-145)
[2023-03-23] MEDS: Thiamine HCL 100 MG TABLET PO (07:25)
[2023-03-23] MEDS: Folic Acid 1 MG TABLET PO (07:25)
[2023-03-23] MEDS: 0.9 % Sodium Chloride Flush 3 ML SYRINGE IVFLUSH (07:25)
[2023-03-23] MEDS: PHENobarbitaL 30 MG TABLET 60 MG PO (07:25)
[2023-03-23] MEDS: Omeprazole 40 MG CAPSULE.DR PO (07:25)
[2023-03-23 11:09] VITALS: BP 131/89; PULSE 101; RESP 22; TEMP 36.8; O2SAT 96
--- NOTE | 2023-03-23 11:26 | PC.NURSE ---
has been sleeping most of the morning, no complaints, st on monitor 101, alert, speech clear, updated to care plan
--- NOTE | 2023-03-23 14:02 | HO.PM.IMPN ---
Subjective Subjective Date of Service: 03/23/23 Interval History: seen and examined this morning follow up for alcohol withdrawal feeling shaky, no other specific complaints at this time Review of Systems Review of Systems: Yes all other systems are reviewed and are negative Constitutional Constitutional: Denies chills and Denies fever(s) ENT Ears, Nose, Mouth, and Throat: Denies dizziness Cardiovascular Cardiovascular: Denies chest pain and Denies palpitations Gastrointestinal Gastrointestinal: Denies abdominal pain, Denies nausea and Denies vomiting Neurologic Neurologic: Denies dizziness Endocrine Endocrine: Denies palpitations Physical Exam Vital Signs: Vital Signs: Last Vital Signs Temp 98.3 F 03/23/23 11:09 Pulse 101 H 03/23/23 11:09 Resp 22 H 03/23/23 11:09 BP 131/89 03/23/23 11:09 Pulse Ox 96 03/23/23 11:09 O2 Del Method Room Air 03/23/23 11:09 BMI result Body Mass Index 26.3 Const: General: cooperative, comfortable, no acute distress, alert and awake Nutritional Appearance: average body habitus Orientation/consciousness: patient oriented x3 Resp: Effort & Inspection: normal respiratory effort, able to speak in complete sentences, no respiratory distress and no use of accessory muscles Cardio: Rate: tachycardic Heart sounds: S1 normal heart sound present and S2 normal heart sound present GI: Inspection: No distended Palpation (GI): Soft to palpation and nontender Neuro: General: patient oriented x3, moves all extremities and CN's II-XI intact bilaterally Extrem: General: Yes no pedal edema Objective Data Active Medications Acetaminophen (Acetaminophen 325 Mg Tablet) 650 mg PO Q6H PRN PRN Reason: Pain, Mild (Pain Scale 1-3) Enoxaparin Sodium (Enoxaparin Sodium 40 Mg/0.4 Ml Syringe) 40 mg SUBCUT Q24H [facility] Last Admin: 03/22/23 23:25 Dose: 40 mg Documented By: SRAVAN Folic Acid (Folic Acid 1 Mg Tablet) 1 mg PO DAILY [facility] Last Admin: 03/23/23 07:25 Dose: 1 mg Documented By: CINDA Melatonin (Melatonin 3 Mg Tablet) 6 mg PO BEDTIME PRN PRN Reason: Insomnia Omeprazole (Omeprazole 40 Mg Capsule.) 40 mg PO DAILY@0630 [facility] Last Admin: 03/23/23 07:25 Dose: 40 mg Documented By: CINDA Ondansetron HCl (Ondansetron Hcl 4 Mg/2 Ml Vial) 4 mg IVPUSH Q8H PRN PRN Reason: Nausea and Vomiting Pharmacy Consult (Consult Rx Etoh Phenob Im/Po) 1 each MISCELLANE ONCE PRN; Protocol PRN Reason: Consult order Phenobarbital (Phenobarbital 30 Mg Tablet) 60 mg PO BID [facility]; Protocol Stop: 03/24/23 21:01 Last Admin: 03/23/23 07:25 Dose: 60 mg Documented By: ICNDA Phenobarbital (Phenobarbital 30 Mg Tablet) 30 mg PO BID [facility]; Protocol Stop: 03/26/23 21:01 Phenobarbital (Phenobarbital 30 Mg Tablet) 30 mg PO DAILY [facility]; Protocol Stop: 03/28/23 09:01 Sodium Chloride (0.9 % Sodium Chloride Flush 3 Ml Syringe) 3 ml IVFLUSH QSHIFT [facility] Last Admin: 03/23/23 07:25 Dose: 3 ml Documented By: CINDA Thiamine HCl (Thiamine Hcl 100 Mg Tablet) 100 mg PO DAILY [facility] Last Admin: 03/23/23 07:25 Dose: 100 mg Documented By: CINDA Labs 03/23/23 04:52 03/23/23 04:52 Labs: Laboratory Results - last 24 hr 03/22/23 03/22/23 03/22/23 21:01 21:01 21:30 MCV 88.3 MCH 30.7 MCHC 34.7 RDW 12.8 Plt Count 457 H MPV 8.8 L Immature Gran % (Auto) Neut % (Auto) Lymph % (Auto) Snyder % (Auto) Eos % (Auto) Baso % (Auto) Lymph # (Auto) Snyder # (Auto) Eos # (Auto) Baso # (Auto) Abs Immat Gran (auto) Absolute Neuts (auto) Absolute Nucleated RBC 0.000 Nucleated RBC % (auto) 0.0 Anion Gap 20 Estim Creat Clear Calc 131.0 Estimated GFR > 60 Random Glucose 128 H Calcium 9.1 D Total Bilirubin 0.3 AST 36 ALT 33 Alkaline Phosphatase 60 Total Protein 8.3 H Albumin 4.7 Urine Color Urine Appearance Urine pH Ur Specific [place] Urine Protein Urine Glucose (UA) Urine Ketones Urine Blood Urine Nitrite Ur Leukocyte Esterase Urine RBC Urine WBC Ur Squamous Epith Cells Urine Bacteria Hyaline Casts Urine Opiates Screen Urine Fentanyl Screen Ur Barbiturates Screen Ur Phencyclidine Scrn Ur Amphetamines Screen U Benzodiazepines Scrn Urine Cocaine Screen U Marijuana (THC) Screen Ethyl Alcohol 298 03/22/23 03/22/23 03/23/23 22:48 22:48 04:52 MCV 90.0 MCH 30.6 MCHC 34.0 RDW 12.8 Plt Count 380 MPV 8.8 L Immature Gran % (Auto) 0.3 Neut % (Auto) 62.4 Lymph % (Auto) 23.1 Snyder % (Auto) 10.7 Eos % (Auto) 3.0 Baso % (Auto) 0.5 Lymph # (Auto) 2.8 Snyder # (Auto) 1.3 H Eos # (Auto) 0.4 Baso # (Auto) 0.1 Abs Immat Gran (auto) 0.04 H Absolute Neuts (auto) 7.6 Absolute Nucleated RBC 0.000 Nucleated RBC % (auto) 0.0 Anion Gap Estim Creat Clear Calc Estimated GFR Random Glucose Calcium Total Bilirubin AST ALT Alkaline Phosphatase Total Protein Albumin Urine Color Yellow Urine Appearance Clear Urine pH 6.5 Ur Specific [place] <= 1.005 Urine Protein Negative Urine Glucose (UA) Negative Urine Ketones Negative Urine Blood Negative Urine Nitrite Negative Ur Leukocyte Esterase Negative Urine RBC 0-2 Urine WBC 0-5 Ur Squamous Epith Cells 0-2 Urine Bacteria None Seen Hyaline Casts 0-2 Urine Opiates Screen Not Detected Urine Fentanyl Screen Not Detected Ur Barbiturates Screen POSITIVE H Ur Phencyclidine Scrn Not Detected Ur Amphetamines Screen Not Detected U Benzodiazepines Scrn Not Detected Urine Cocaine Screen POSITIVE H U Marijuana (THC) Screen POSITIVE H Ethyl Alcohol 03/23/23 04:52 MCV MCH MCHC RDW Plt Count MPV Immature Gran % (Auto) Neut % (Auto) Lymph % (Auto) Snyder % (Auto) Eos % (Auto) Baso % (Auto) Lymph # (Auto) Snyder # (Auto) Eos # (Auto) Baso # (Auto) Abs Immat Gran (auto) Absolute Neuts (auto) Absolute Nucleated RBC Nucleated RBC % (auto) Anion Gap 15 Estim Creat Clear Calc 140.7 Estimated GFR > 60 Random Glucose 104 Calcium 8.4 D Total Bilirubin AST ALT Alkaline Phosphatase Total Protein Albumin Urine Color Urine Appearance Urine pH Ur Specific [place] Urine Protein Urine Glucose (UA) Urine Ketones Urine Blood Urine Nitrite Ur Leukocyte Esterase Urine RBC Urine WBC Ur Squamous Epith Cells Urine Bacteria Hyaline Casts Urine Opiates Screen Urine Fentanyl Screen Ur Barbiturates Screen Ur Phencyclidine Scrn Ur Amphetamines Screen U Benzodiazepines Scrn Urine Cocaine Screen U Marijuana (THC) Screen Ethyl Alcohol Assessment and Plan (1) Alcohol withdrawal delirium: Status: Acute Plan This is a 32-year-old male with pertinent history of alcohol use disorder who presents to the emergency department for concerns of alcohol withdrawal. Alcohol dependence with alcohol withdrawal no hallucinations at this time continue phenobarb protocol Continue thiamine and folic acid Consulting Addiction Team follow [facility] Gastroesophageal reflux disease: On PPI DVT prophylaxis: Lovenox Full code attending - dr. patterson requires ongoing inpatient management of alcohol withdrawal for phenobarbitol and close monitoring for progression or decompensation/hemodynamic instability/DTs Time Spent With Patient Time: Total time managing care of this patient today ____ minutes. Quality Stroke Does the patient have a stroke diagnosis?: No VTE Prior VTE?: No VTE Risk Level:: Medical - moderate - high VTE Device Contraindication: Treatment Not Indicated VTE Drug Contraindication: N/A - Med Ordered
--- NOTE | 2023-03-23 14:09 | MHC.CM.PN ---
EMR REVIEWED, PT ADMITTED W/ETOH WITHDRAWAL AND DELERIUM, CM MET W/PT WHO IS A&O AND REPORTS HE LIVES W/ AND 4YO SON, PT WORKS AND IS FULLY INDEP W/CARE, DENIES USE OF DME/SERVICES. PT DOES REPORT HE USED TO TAKE NALTREXONE AND WENT TO CLEAN SLATE HOWEVER HIS INSURANCE STOPPED COVERING THE MEDICATION AND PT WOULD LIKE TO SPEAK W/RECOVERY TEAM TO SEE IF SOMETHING CAN BE DONE, RECOVERY TEAM CONSULT ORDERED AND RECOVERY NURSE UPDATED. PT VERIFIES PCP IS JAIME PURVIS, HCP IS AND ON FILE AND PT DENIES BEING VACCINATED AGAINST COVID19.
[2023-03-23] MEDS: Lactated Ringers 1,000 ML 100 ML IVCONT (14:21)
--- NOTE | 2023-03-23 14:24 | PC.NURSE ---
patient sleeping, woke to verbal stimulus- pt transported from ed bed 10 to overflow 1 by transport, patient a&ox3, denies si/hi, pt states he has some anxiety which has worsened over the course of being here- will speak with provider, ivf started per order, call blue within reach, will continue to monitor.
[2023-03-23 16:00] VITALS: BP 139/84; PULSE 75; RESP 16; TEMP 36.8; O2SAT 98
--- NOTE | 2023-03-23 16:27 | MHC.RECOVRN ---
This narrative writer attempted to meet with patient after receiving addiction consult, pt resting in bed. Addiction/Recovery team to return when pt more alert.
--- NOTE | 2023-03-23 17:14 | PC.NURSE ---
patient woke and requesting to leave AMA, Kamini Pichardo was notified, upon notification this nurse noted that the patient had gotten dressed and requested iv to be removed. This nurse removed his IV upon his request and again notified the provider. Pt has been given his dinner tray- will continue to encourage patient to stay to wait for the provider
--- NOTE | 2023-03-23 17:22 | PC.NURSE ---
per request of Kamnii Pichardo, this nurse was able to get the patient to sign an AMA form, as patient was ambulating with a steady gait to leave Kamini Pichardo saw him outside the overflow doors and is speaking with him about leaving.
--- NOTE | 2023-03-23 17:28 | PM.DS ---
DS: Providers Provider Date of Service: 03/23/23 Date of admission: 03/23/23 09:19 Date of discharge: 03/23/23 Primary care physician: Unknown Physician Consults: 03/22/23 22:36 Addiction Medicine Routine Consulting Provider: Addiction Covering Reason for consultation: alcohol use disorder Attending physician on discharge: Geoffrey Mijares Discharging clinician: Kamini Pichardo DS: Diagnosis Discharge Diagnosis (1) Alcohol withdrawal delirium: Status: Acute DS: Summary Hospital Course Hospital Course: From H&P on day of admission This is a 32-year-old male with pertinent history of alcohol use disorder who presents to the emergency department for concerns of alcohol withdrawal.? Patient states his last drink was 2 hours prior to arrival.? He admittedly drinks about 60-72 cans of beer per day.? Patient states that he cut it into half this week and has been drinking 30 cans of beer per day.? He has been having sweating, tremors and occasional auditory hallucinations since he cut back drinking.? He does have a history of alcohol withdrawal seizures and delirium tremens.? States he wants to go to detox and quit drinking.? He denies fever, chills, nausea, vomiting, chest discomfort, palpitations, abdominal pain, changes in urinary or bowel habits. alcohol withdrawal. he was started on phenobarbital protocol. consult was placed to addiction medicine. He was continued on home thiamine and folic acid supplementation. Unfortunately he decided to leave the hospital against medical advice. He was awake, alert and oriented x3. He has made appointment at [facility] tomorrow at 11:00am for follow-up. He states that he has to go to work in order to be able to pay the bills to care for his family. He understands and was able to verbalize the risk in leaving the hospital. he is encouraged to abstain from drinking alcohol. Time Spent with Patient Time attestation: Total time managing care of this patient today ____ minutes. Discharge coordination time: Greater than 30 minutes Quality: Safe Use of Opioids Does Pt have an Active Cancer Diagnosis on the Problem List?: No Quality: Stroke Does the patient have a stroke diagnosis?: No Physical Exam Vital Signs: Vital Signs: Last Vital Signs Temp 98.2 F 03/23/23 16:00 Pulse 75 03/23/23 16:00 Resp 16 03/23/23 16:00 BP 139/84 03/23/23 16:00 Pulse Ox 98 03/23/23 16:00 O2 Del Method Room Air 03/23/23 16:00 BMI result Body Mass Index 26.3 Const: General: cooperative, comfortable, no acute distress, alert and awake Nutritional Appearance: average body habitus Orientation/consciousness: patient oriented x3 Resp: Effort & Inspection: normal respiratory effort, able to speak in complete sentences, no respiratory distress and no use of accessory muscles Cardio: Rate: tachycardic Heart sounds: S1 normal heart sound present and S2 normal heart sound present GI: Inspection: No distended Palpation (GI): Soft to palpation and nontender Neuro: General: patient oriented x3, moves all extremities and CN's II-XI intact bilaterally Extrem: General: Yes no pedal edema DS: Data Data Completed and Pending Completed studies during hospitalization [Text1]: Procedures Detoxification Services for Substance Abuse Treatment (01/14/23) Labs on day of discharge: Laboratory Results - last 24 hr 03/22/23 03/22/23 03/22/23 21:01 21:01 21:01 WBC 10.6 RBC 5.38 Hgb 16.5 Hct 47.5 MCV 88.3 MCH 30.7 MCHC 34.7 RDW 12.8 Plt Count 457 H MPV 8.8 L Immature Gran % (Auto) Neut % (Auto) Lymph % (Auto) [place] % (Auto) Eos % (Auto) Baso % (Auto) Lymph # (Auto) [place] # (Auto) Eos # (Auto) Baso # (Auto) Abs Immat Gran (auto) Absolute Neuts (auto) Absolute Nucleated RBC 0.000 Nucleated RBC % (auto) 0.0 Sodium 144 Potassium 3.3 Chloride 107 Carbon Dioxide 20 L Anion Gap 20 BUN < 3 L Creatinine 0.87 Estim Creat Clear Calc 131.0 Estimated GFR > 60 Random Glucose 128 H Calcium 9.1 D Total Bilirubin 0.3 AST 36 ALT 33 Alkaline Phosphatase 60 Troponin I High Sens < 2.7 Total Protein 8.3 H Albumin 4.7 Urine Color Urine Appearance Urine pH Ur Specific [place] Urine Protein Urine Glucose (UA) Urine Ketones Urine Blood Urine Nitrite Ur Leukocyte Esterase Urine RBC Urine WBC Ur Squamous Epith Cells Urine Bacteria Hyaline Casts Urine Opiates Screen Urine Fentanyl Screen Ur Barbiturates Screen Ur Phencyclidine Scrn Ur Amphetamines Screen U Benzodiazepines Scrn Urine Cocaine Screen U Marijuana (THC) Screen Ethyl Alcohol 03/22/23 03/22/23 03/22/23 21:30 22:48 22:48 WBC RBC Hgb Hct MCV MCH MCHC RDW Plt Count MPV Immature Gran % (Auto) Neut % (Auto) Lymph % (Auto) [place] % (Auto) Eos % (Auto) Baso % (Auto) Lymph # (Auto) [place] # (Auto) Eos # (Auto) Baso # (Auto) Abs Immat Gran (auto) Absolute Neuts (auto) Absolute Nucleated RBC Nucleated RBC % (auto) Sodium Potassium Chloride Carbon Dioxide Anion Gap BUN Creatinine Estim Creat Clear Calc Estimated GFR Random Glucose Calcium Total Bilirubin AST ALT Alkaline Phosphatase Troponin I High Sens Total Protein Albumin Urine Color Yellow Urine Appearance Clear Urine pH 6.5 Ur Specific [place] <= 1.005 Urine Protein Negative Urine Glucose (UA) Negative Urine Ketones Negative Urine Blood Negative Urine Nitrite Negative Ur Leukocyte Esterase Negative Urine RBC 0-2 Urine WBC 0-5 Ur Squamous Epith Cells 0-2 Urine Bacteria None Seen Hyaline Casts 0-2 Urine Opiates Screen Not Detected Urine Fentanyl Screen Not Detected Ur Barbiturates Screen POSITIVE H Ur Phencyclidine Scrn Not Detected Ur Amphetamines Screen Not Detected U Benzodiazepines Scrn Not Detected Urine Cocaine Screen POSITIVE H U Marijuana (THC) Screen POSITIVE H Ethyl Alcohol 298 03/23/23 03/23/23 04:52 04:52 WBC 12.2 H RBC 4.58 L Hgb 14.0 Hct 41.2 L MCV 90.0 MCH 30.6 MCHC 34.0 RDW 12.8 Plt Count 380 MPV 8.8 L Immature Gran % (Auto) 0.3 Neut % (Auto) 62.4 Lymph % (Auto) 23.1 [place] % (Auto) 10.7 Eos % (Auto) 3.0 Baso % (Auto) 0.5 Lymph # (Auto) 2.8 [place] # (Auto) 1.3 H Eos # (Auto) 0.4 Baso # (Auto) 0.1 Abs Immat Gran (auto) 0.04 H Absolute Neuts (auto) 7.6 Absolute Nucleated RBC 0.000 Nucleated RBC % (auto) 0.0 Sodium 145 Potassium 3.6 Chloride 111 H Carbon Dioxide 23 Anion Gap 15 BUN 4 L Creatinine 0.81 Estim Creat Clear Calc 140.7 Estimated GFR > 60 Random Glucose 104 Calcium 8.4 D Total Bilirubin AST ALT Alkaline Phosphatase Troponin I High Sens Total Protein Albumin Urine Color Urine Appearance Urine pH Ur Specific [place] Urine Protein Urine Glucose (UA) Urine Ketones Urine Blood Urine Nitrite Ur Leukocyte Esterase Urine RBC Urine WBC Ur Squamous Epith Cells Urine Bacteria Hyaline Casts Urine Opiates Screen Urine Fentanyl Screen Ur Barbiturates Screen Ur Phencyclidine Scrn Ur Amphetamines Screen U Benzodiazepines Scrn Urine Cocaine Screen U Marijuana (THC) Screen Ethyl Alcohol Discharge Plan Discharge Anticipated Discharge Date/Time: 03/23/23 17:24 Patient Disposition: Left Against Medical Advice Discharge Diagnosis: alcohol withdrawal Referrals: Physician,Unknown J [Primary Care Provider] - 1 Week Discharge Medications: No Action thiamine HCl (vitamin B1) 100 mg tablet 100 mg PO DAILY omeprazole 40 mg capsule,delayed release(DR/EC) 40 mg PO BID esomeprazole magnesium 40 mg Capsule,Delayed Release(Dr/Ec) 40 mg PO DAILY folic acid 1 mg tablet 1 mg PO DAILY Discharge Orders: Discharge Order (Routine); Ordered 03/23/23 Ordered By: Kamini Pichardo Care Plan Goals: see below Health Concerns: alcohol dependence Plan of Treatment: has an appointment at [facility] and plan to go there for follow up tomorrow at 11 am recommend to avoid alcohol and other substances Assessment: left against medical advice
--- NOTE | 2023-03-24 10:40 | MHC.RECOVRN ---
Addiction consult received, attempt made 03/23 to make contact with pt, pt sleeping and allowed to sleep. Today upon chart review pt has left AMA.
== END 2023-03-23 17:30 | disposition left against medical advice (07) | DRG 770 ==
LOC: HO.ED 21:26 → HO.EDOVER 22:43
PROVIDERS: Nurse Practitioner Family; Admitting Provider Student in an Organized Health Care Education/Training Program; Emergency Provider Internal Medicine; PCP Registered Nurse; Visit Provider Physician Assistant Medical
DX: F10.231 Alcohol dependence with withdrawal delirium (principal); K21.9 Gastro-esophageal reflux disease without esophagitis; Y90.8 Blood alcohol level of 240 mg/100 ml or more; Z87.891 Personal history of nicotine dependence
CPT/HCPCS: 36415; 80048; 80053; 80307; 81001; 84484; 85025; 85027; 93005; 99285; J1650; J2060; J2560; J3411

== ENCOUNTER → 2023-03-22 22:36 | Outpatient (BNV) | payer OTHER, SELFPAY | PROVIDERS: Admitting Provider Student in an Organized Health Care Education/Training Program; Emergency Provider Internal Medicine; Visit Provider Student in an Organized Health Care Education/Training Program | DX: F10.931 Alcohol use, unspecified with withdrawal delirium (principal) | CPT/HCPCS: 99222; 99239 ==

== ENCOUNTER 2023-03-27 07:42 | Inpatient (IN) | payer OTHER, SELFPAY ==
[2023-03-27] VITALS (10 sets, daily range): BP systolic 124–164; BP diastolic 81–99; PULSE 50–133; RESP 16–18; TEMP 36.6–37.1; O2SAT 96–99; BMI 29.3; BMI 32.6
--- NOTE | 2023-03-27 07:54 | ED_ITS ---
HPI - Alcohol General Chief Complaint: ETOH/Substance Use Stated Complaint: NAUSEA/VOMITING,LAST DRINK LAST NOC,?WITHDRAWAL Source: patient and old records reviewed Mode of arrival: EMS Limitations: no limitations History of Present Illness HPI narrative: 32 yo male with hx of ETOH abuse drinks about 50 cans of beer a day and last drink was 8pm. He also sniffed what he thinks was cocaine with someone last night but he isn't sure. He started to shake and have n/v at 3am. He states he cannot eat or drink. He wants detox. He left AMA last time as his boss threatened to fire him he just quit his job to go to detox. He denies SI. He states he has had seizures in the past. MD complaint: alcohol withdrawal, alcohol dependence and desires rehab Last drink: Hours (ago) (12) Chronic alcohol use: Yes Previous visits for alcohol intoxication: Yes Recent trauma: No Associated symptoms: nausea, vomiting, diaphoresis and tremors Treatments prior to arrival: none Related Data Home Medications Medication Instructions Recorded Confirmed esomeprazole magnesium 40 mg 40 mg PO DAILY 03/22/23 03/22/23 capsule,delayed release folic acid 1 mg tablet 1 mg PO DAILY 03/22/23 03/22/23 omeprazole 40 mg capsule,delayed 40 mg PO BID 03/22/23 03/22/23 release thiamine HCl (vitamin B1) 100 mg 100 mg PO DAILY 03/22/23 03/22/23 tablet Allergies Allergy/AdvReac Type Severity Reaction Status Date / Time No Known Allergies Allergy Verified 08/11/22 08:14 Review of Systems Review of Systems: Constitutional : No Weight loss, No Fever, No Chills, pos sweats ENT/Mouth : No sore throat, No Rhinorrhea Eyes: No Swelling, No Redness Cardiovascular : No Chest Pain, No SOB, NoEdema Respiratory : No Cough, No Sputum, No Wheezing Gastrointestinal : Positive Nausea, Positive Vomiting, no Diarrhea, no abdominal Pain, No Hematochezia, No Melena Genitourinary : No Dysuria, No Urinary Frequency, No Hematuria, No Urgency Musculoskeletal : No joint pain, No Myalgias, No Joint Swelling Skin : No Skin Lesions, No rash Neuro : No Weakness, No Numbness, No Dizziness, No Headache, pos tremors Psych : pos Anxiety/Panic, No Depression All other systems reviewed and are negative. ON LICENSE OF [facility] Past Medical History Attestation statement: The following information was validated with the patient. Medical History Anxiety and depression ETOH abuse History of seizure due to alcohol withdrawal Family History Family History Other Diabetes Social History Social History Household Members: Family Housing: Apartment Do you presently have visiting nurse or other home services: No Alcohol intake: current Alcohol intake frequency: 3 or more drinks per day Alcohol type: beer Patient Tobacco Use Status: Former Tobacco user Smoked in Last 30 Days: No Use of substances other than those prescribed or required for medical reasons: No Substance Use Type: Other Substance Use Type Other:: patient unsure what drugs he did Substance Use Frequency: Chronic Longstanding Advance Directives: Yes Advance Directives on File: Yes Advance Directives Date on File: 11/07/22 service: No Current occupational status: employed Physical Exam ED Vital Signs: Vital Signs - 24 hr 03/27/23 07:48 Temperature 97.9 F Pulse Rate 133 H Respiratory Rate 18 Blood Pressure 164/98 H Pulse Oximetry 98 Oxygen Delivery Method Room Air BMI result Body Mass Index 29.3 Appearance: Alert. Oriented X3. Mild acute distress. active vomiting anxious tremulous Eyes: Pupils equal, round and reactive to light. ENT: Pharynx mildly dry MM Neck: Normal inspection. Neck supple. CVS: tachycardic heart rate and rhythm. Pulses normal. Respiratory: No respiratory distress. Breath sounds normal. Abdomen: Soft and nontender. Skin: Skin warm and diaphoretic Normal skin color. Normal skin turgor. Extremities: No lower extremity edema. No calf ttp Neuro: Oriented X 3. No motor deficit. No sensory deficit. Course Course Course Narrative: patient is drastically improved at this time. VS improved, vomiting has stopped. states last seizure was 2 weeks ago. Medical Decision Making Medical Decision Making MDM Narrative: 32 yo male with lonstanding alcoholism who drinks about 50 beers a day he also sniffed what he thought was cocaine last night now with tremors diaphoresis n/v and withdrawal symptoms last drink 8pm. At this time will need labs, IVF x 2L, thiamine, IV magnesium, IV phenobarbital and reassessments if he improves he may be able to go to detox vs inpatient but he does report seizures in past so he will have to have a drastic improvement Differential Diagnosis Differential Diagnoses: The differential diagnosis associated with the presentation includes gastritis, alcohol withdrawal, substance abuse Admission/Observation Consideration of admission/observation: Escalation of care including admission/observation considered will admit for ETOH withdrawal and phenobarb Consult Healthcare Provider Management of the patient was discussed with: Hospitalist agrees to admission. Lab Data MDM Lab Attestation statement: I reviewed the patient's lab results. 03/27/23 08:07 03/27/23 08:07 Labs: Lab Results 03/27/23 03/27/23 03/27/23 Range/Units 08:07 08:07 08:07 WBC 10.6 (4.8-10.8) X10*3/uL RBC 5.23 (4.60-5.80) X10*6/uL Hgb 16.3 (14.0-18.0) g/dl Hct 45.5 (42.0-52.0) % MCV 87.0 (80.0-98.0) fL MCH 31.2 (27.0-33.0) pg MCHC 35.8 (31.0-36.0) g/dl RDW 12.6 (11.0-16.0) % Plt Count 459 H (160-400) X10*3/uL MPV 8.7 L (9.4-12.4) fL Immature Gran % (Auto) 0.3 (0.0-0.4) % Neut % (Auto) 60.8 (45-73) % Lymph % (Auto) 23.9 (20-40) % Coal % (Auto) 10.2 (2-11) % Eos % (Auto) 4.0 (0-4) % Baso % (Auto) 0.8 (0-2) % Lymph # (Auto) 2.5 (1.2-4.9) X10*3/uL Coal # (Auto) 1.1 (0.1-1.2) X10*3/uL Eos # (Auto) 0.4 (0.0-0.4) X10*3/uL Baso # (Auto) 0.1 (0.0-0.2) X10*3/uL Abs Immat Gran (auto) 0.03 (0.00-0.03) X10*3/uL Absolute Neuts (auto) 6.5 (2.0-8.3) x10*3/uL Absolute Nucleated RBC 0.000 (0.0-0.012) X10*3/uL Nucleated RBC % (auto) 0.0 (0.0-0.2) /100WBC Sodium 139 (135-145) mmol/L Potassium 3.3 (3.3-5.1) mmol/L Chloride 102 (96-108) mmol/L Carbon Dioxide 17 L (22-29) mmol/L Anion Gap 23 H (12-20) BUN 3 L (9-16) mg/dL Creatinine 0.94 (0.5-1.4) mg/dL Estim Creat Clear Calc 122.3 Estimated GFR > 60 Random Glucose 116 H (60-115) mg/dL Calcium 9.7 D (8.4-10.2) mg/dL Magnesium 1.7 (1.6-2.6) mg/dL Total Bilirubin 0.6 (0.0-1.0) mg/dL Direct Bilirubin 0.3 (0.0-0.5) mg/dL AST 61 H (5-37) U/L ALT 43 H (0-40) U/L Alkaline Phosphatase 70 (39-117) U/L Total Protein 7.8 (6.5-8.0) g/dL Albumin 4.4 (3.5-5.0) g/dL Lipase 15 (8-78) U/L Ethyl Alcohol 48 mg/dL Independent Interpretation I performed an independent interpretation of an: EKG Interpretation: Rate: 123 Rhythm: sinus tachycardia [place]: normal Normal P waves. Normal MARKUS. Normal QRS complex. ST T wave : artifact noted but NO MOOKIE qTC: normal prior studies: no acute ischemia The study has been interpreted contemporaneously by me. . Independent Historian Clinical information obtained from an independent historian. History obtained from or confirmed by: EMS External Record Review External record reviewed: Inpatient record Social Determinants Patient?s care significantly limited by Social Determinants of Health including: Alcoholism and drug addiction in family Medications Administered Generic Name Dose Route Start Last Admin Trade Name Freq PRN Reason Stop Dose Admin Magnesium Sulfate 2 gm in 50 mls @ 25 mls/hr 03/27/23 07:54 03/27/23 08:21 Magnesium Sulfate/H2o IV 03/27/23 09:53 25 mls/hr ONCE ONE Administration Discontinued Medications Generic Name Dose Route Start Last Admin Trade Name Ramírez PRN Reason Stop Dose Admin Sodium Chloride 1,000 mls @ 999 mls/hr 03/27/23 08:00 03/27/23 08:19 Ns IVCONT 03/27/23 09:00 999 mls/hr .Q1H1M EL Administration Thiamine HCl 200 mg/ Sodium 102 mls @ 204 mls/hr 03/27/23 07:54 03/27/23 08:44 Chloride IV 03/27/23 08:23 204 mls/hr ONCE ONE Administration Sodium Chloride 1,000 mls @ 999 mls/hr 03/27/23 08:00 03/27/23 08:36 Ns IV 03/27/23 09:00 999 mls/hr .Q1H1M EL Administration Ondansetron HCl 4 mg 03/27/23 07:54 03/27/23 08:19 Ondansetron Hcl 4 Mg/2 Ml Vial IVPUSH 03/27/23 07:55 4 mg ONCE ONE Administration Phenobarbital Sodium 284 mg 03/27/23 09:00 03/27/23 08:24 Phenobarbital Sodium 130 Mg/Ml Im Once IM 03/27/23 09:01 284 mg ONCE ONE Administration Protocol Critical Care Time Critical Care Time Critical Care Time: Yes Total Critical Care Time: 60 Attestation: 2L of IVF, IV magnesium, IV phenobarbital for alcohol withdrawal I attest to this time spent taking care of the patient Discharge Plan Discharge Clinical Impression: Alcohol withdrawal syndrome Qualifiers: Complication of substance-induced condition: uncomplicated Qualified Code(s): F10.930 - Alcohol use, unspecified with withdrawal, uncomplicated Nausea with vomiting Qualifiers: Vomiting type: unspecified Qualified Code(s): R11.2 - Nausea with vomiting, unspecified Patient Disposition: Admitted As Inpatient
--- NOTE | 2023-03-27 07:54 | PC.NURSE ---
Patient alert and oriented, reports facial and scalp swelling after dying her hair and having it braided yesterday. Minor facial swelling, some redness noted on scalp. Denies itchiness, chest pain, sob, or throat/tounge swelling
--- NOTE | 2023-03-27 07:55 | ECG_ITS ---
Test Reason : chest pain Blood Pressure : / mmHG Vent. Rate : 123 BPM Atrial Rate : 123 BPM P-R Int : 140 ms QRS Dur : 074 ms QT Int : 296 ms P-R-T Axes : 069 070 050 degrees QTc Int : 423 ms Sinus tachycardia Abnormal ECG When compared with ECG of 22-MAR-2023 20:54, Criteria for Septal infarct are no longer Present Nonspecific T wave abnormality, improved in Inferior leads Nonspecific T wave abnormality no longer evident in Lateral leads Referred By: Brenda Aguilar Electronically Signed By:EMILY MARCUS
[2023-03-27 08:10] LABS: MANUAL DIFF FLAG NO
[2023-03-27 08:15] LABS: Basophils Absolute Auto 0.1 X10*3/uL (0.0-0.2); Basophils Percent Auto 0.8 % (0-2); Eosinophils Absolute Auto 0.4 X10*3/uL (0.0-0.4); Hematocrit 45.5 % (42.0-52.0); Hemoglobin 16.3 g/dl (14.0-18.0); Imm Gran Abs Auto 0.03 X10*3/uL (0.00-0.03); Imm Gran Pct Auto 0.3 % (0.0-0.4); Lymphocytes Absolute Auto 2.5 X10*3/uL (1.2-4.9); Lymphocytes Percent Auto 23.9 % (20-40); Mean Corpuscular HGB Conc 35.8 g/dl (31.0-36.0); Mean Corpuscular Hemoglobin 31.2 pg (27.0-33.0); Mean Platelet Volume 8.7 fL (9.4-12.4); Monocytes Absolute Auto 1.1 X10*3/uL (0.1-1.2); Monocytes Percent Auto 10.2 % (2-11); Neutrophils Absolute Auto 6.5 x10*3/uL (2.0-8.3); Neutrophils Percent Auto 60.8 % (45-73); Platelet Count 459 X10*3/uL (160-400); Red Blood Count 5.23 X10*6/uL (4.60-5.80); Red Cell Distribution Width 12.6 % (11.0-16.0); White Blood Count 10.6 X10*3/uL (4.8-10.8)
[2023-03-27] MEDS: ondansetron HCL 4 MG/2 ML VIAL IVPUSH (08:19)
[2023-03-27] MEDS: 0.9 % Sodium Chloride 1,000 ML 999 ML IVCONT (08:19)
[2023-03-27] MEDS: Magnesium Sulfate/H2O 2 GM/50 ML PIGGYBACK IV (08:21)
[2023-03-27 08:23] LABS: Ethanol 48 mg/dL
[2023-03-27] MEDS: PHENobarbitaL sodium 130 MG/ML IM ONCE 284 MG IM (08:24)
[2023-03-27 08:28] LABS: Alanine Aminotransferase 43 U/L (0-40); Albumin Level 4.4 g/dL (3.5-5.0); Alkaline Phosphatase 70 U/L (39-117); Anion Gap 23 (12-20); Aspartate Amino Transferase 61 U/L (5-37); Bilirubin Direct 0.3 mg/dL (0.0-0.5); Bilirubin Total 0.6 mg/dL (0.0-1.0); Blood Urea Nitrogen 3 mg/dL (9-16); Calcium 9.7 mg/dL (8.4-10.2); Carbon Dioxide 17 mmol/L (22-29); Chloride 102 mmol/L (96-108); Creatinine Clr Calc Pharmacy 122.3; Estimated Glomerular Filt Rate > 60; Glucose Random 116 mg/dL (60-115); Lipase 15 U/L (8-78); Magnesium 1.7 mg/dL (1.6-2.6); Potassium 3.3 mmol/L (3.3-5.1); Sodium 139 mmol/L (135-145); Total Protein 7.8 g/dL (6.5-8.0)
--- NOTE | 2023-03-27 08:28 | PC.NURSE ---
Patient brought in by EMS, patient reporting doing unknown drugs last night along with drinking. Patient with hx of alcohol withdrawal and is requesting detox. Patient states last drink was last night and has been trying to cut back but feels sick. Patient reports hearing voices, chest pressure, nausea and voiting. Patient with tremors, sweating, dry heaving, pupils dilated. Reports right sided chest pressure. EKG obtained. HR 97, NSR at this time
[2023-03-27] MEDS: 0.9 % Sodium Chloride 1,000 ML 999 ML IV (08:36)
[2023-03-27] MEDS: Thiamine HCL 200 MG in 0.9 % Sodium Chloride 100 ML 204 MG IV (08:44)
[2023-03-27] MEDS: Potassium Chloride Packet 20 MEQ PACKET 40 MEQ PO (09:28)
--- NOTE | 2023-03-27 09:44 | PHA.MEDREC ---
Pharmacy Consult ? Medication Reconciliation Pharmacy has completed the medication reconciliation. spoke with patient to confirm medications. He says he finished the folic aid and thiamine about a week ago.
[2023-03-27 10:34] LABS: Amphetamine Screen Urine Not Detected (Not Detect); Barbiturates, Urine POSITIVE (Not Detect); Benzodiazepines Screen Urine Not Detected (Not Detect); Cannabinoid Screen Urine POSITIVE (Not Detect); Cocaine Screen Urine POSITIVE (Not Detect); Opiate Screen Urine Not Detected (Not Detect); Phencyclidine Screen Urine Not Detected (Not Detect)
[2023-03-27] MEDS: PHENobarbitaL sodium 130 MG/ML VIAL IM Q3Hx2 213 MG IM ×2 (11:14→14:48)
[2023-03-27 11:20] LABS: Fentanyl, urine Not Detected (Not Detect)
--- NOTE | 2023-03-27 11:22 | PC.NURSE ---
MANAWA 17, medicated per Oct 2nd dose of phenobarbital.
[2023-03-27] MEDS: Enoxaparin Sodium 40 MG/0.4 ML SYRINGE SUBCUT (12:05)
[2023-03-27] MEDS: Omeprazole 40 MG CAPSULE.DR PO (12:05)
[2023-03-27] MEDS: Calcium Carbonate 750 MG TAB.CHEW 1500 MG PO (12:05)
--- NOTE | 2023-03-27 12:05 | PM.IMHP ---
History of Present Illness Date of Service: 03/27/23 Attending physician on admission: Tyron Bhatti Chief Complaint: etoh wtihdrawal 31-year-old male with history of alcohol dependence, history of alcohol withdrawal seizure, and GERD presented to the ED earlier today for evaluation of alcohol withdrawal.? The patient states he has a history of heavy alcohol consumption and for the last 7 days has been bingeing on alcohol consuming 50 beers daily and nearly 1L hard alcohol daily. He states he will black out, fall asleep, and start drinking again upon waking. Last alcohol was last night at 8pm. He has been admitted several time for detox but left early due to concerns with his job. he now has a new job who is more understanding and he is motivated to detox. He currently reports paranoia, auditory and visual hallucinations, tremors, aggitation, and significant anxiety after initial load with phenobarb in the ED. Symptoms did improve with addl scheduled dose phenobarb but he is now reporting an out of body experience stating this doesnt feel feel and is still reporting AH, headache. No n/v. Having epigastric pain radiating into the chest described as burning/heavy. He is A&Ox4. On arrival pt tachycardic to 130 which improved with phenobarb but has recurred. Also mildly hypertensive but vitals otherwise within normal limits. He does have history etoh withdrawal seizure last month. He does report depressive symptoms and significant anxiety as well but denies any SI/HI. He also reports first time use inh cocaine yesterday but denies any other illicit drug use. No cigarettes. Hematology studies unremarkable. Renal function normal, electrolytes normal except for CO2 17, anion gap 23. Magnesium 1.7. AST 61, ALT 43, total and direct bilirubin within normal limits. Urine tox screen positive for for barbiturates likely from phenobarb, cocaine, and THC. Ethyl alcohol level 48. EKG showing sinus tachycardia, rate [address]/T-wave abnormality. In the ED, initiated on phenobarbital per protocol, 40 mEq of potassium chloride, IV thiamine, Decadron, and 2 g IV magnesium. Review of Systems Review of Systems: General: No fevers, malaise, unintentional weight loss Cardiovascular: +chest pain. No palpitations, or leg edema Respiratory: No shortness of breath, wheezing, cough GI: +abd pain, +reflux. No nausea, vomiting, diarrhea, constipation, melena, hematochezia : No dysuria, hematuria, increased urinary frequency, decreased urinary output MSK: No myalgia, back pain Neuro: No weakness, paresthesias. +tremors, +headache Psych: +AH,+VH, +aggitation, +anxiety, +depression. No SI/HI Skin: No rashes or lesions [facility] Medical History Anxiety and depression ETOH abuse History of seizure due to alcohol withdrawal Family History Other Diabetes Social History Household Members: Family Housing: Apartment Do you presently have visiting nurse or other home services: No Alcohol intake: current Alcohol intake frequency: 3 or more drinks per day Alcohol type: beer Patient Tobacco Use Status: Former Tobacco user Smoked in Last 30 Days: No Use of substances other than those prescribed or required for medical reasons: No Substance Use Type: Other Substance Use Type Other:: patient unsure what drugs he did Substance Use Frequency: Chronic Longstanding Advance Directives: Yes Advance Directives on File: Yes Advance Directives Date on File: 11/07/22 Nutrition Risks: No Nutritional Risk service: No Current occupational status: employed Meds Allergies Allergy/AdvReac Type Severity Reaction Status Date / Time No Known Allergies Allergy Verified 08/11/22 08:14 Active Medications: Current Medications Acetaminophen (Acetaminophen 325 Mg Tablet) 650 mg PO Q6H PRN PRN Reason: Pain, Mild (Pain Scale 1-3) Al Hydroxide/Mg Hydroxide (Magnesium Hydrox/Alum Hydrox 30 Ml Oral.Susp) 30 ml PO Q4H PRN PRN Reason: Heartburn/Nausea Docusate Sodium (Docusate Sodium 100 Mg Capsule) 100 mg PO DAILY PRN PRN Reason: Constipation Enoxaparin Sodium (Enoxaparin Sodium 40 Mg/0.4 Ml Syringe) 40 mg SUBCUT Q24H [facility] Folic Acid (Folic Acid 1 Mg Tablet) 1 mg PO DAILY [facility] Thiamine HCl 100 mg/ Sodium (Chloride) 101 mls @ 202 mls/hr IV DAILY [facility] Omeprazole (Omeprazole 40 Mg Capsule.) 40 mg PO DAILY@0630 [facility] Omeprazole (Omeprazole 40 Mg Capsule.) 40 mg PO BID [facility] Ondansetron HCl (Ondansetron Hcl 4 Mg/2 Ml Vial) 4 mg IVPUSH Q8H PRN PRN Reason: Nausea and Vomiting Pharmacy Consult (Consult Rx Etoh Phenob Im/Po) 1 each MISCELLANE ONCE PRN; Protocol PRN Reason: Consult order Phenobarbital (Phenobarbital 15 Mg Tablet) 45 mg PO BID [facility]; Protocol Stop: 03/29/23 21:01 Phenobarbital (Phenobarbital 15 Mg Tablet) 15 mg PO BID EL; Protocol Stop: 03/31/23 21:01 Phenobarbital (Phenobarbital 15 Mg Tablet) 15 mg PO DAILY [facility]; Protocol Stop: 04/02/23 09:01 Phenobarbital Sodium (Phenobarbital Sodium 130 Mg/Ml Vial Im Q3hx2) 213 mg IM Q3H EL; Protocol Stop: 03/27/23 15:01 Last Admin: 03/27/23 11:14 Dose: 213 mg Sodium Chloride (0.9 % Sodium Chloride Flush 3 Ml Syringe) 3 ml IVFLUSH QSHIFT [facility] Home Medications Medication Instructions Recorded Confirmed Last Taken Type esomeprazole magnesium 40 mg 40 mg PO QD-BID PRN Heartburn 03/22/23 03/27/23 Unknown History capsule,delayed release omeprazole 40 mg capsule,delayed 40 mg PO BID 03/22/23 03/27/23 Unknown History release docusate sodium 100 mg capsule 100 mg PO DAILY PRN constipation 03/27/23 03/27/23 Unknown History Physical Exam Vital Signs and Narrative: Vital Signs: Last Vital Signs Temp 98.2 F 03/27/23 10:23 Pulse 120 H 03/27/23 10:23 Resp 16 03/27/23 10:23 BP 134/94 H 03/27/23 10:23 Pulse Ox 99 03/27/23 10:23 O2 Del Method Room Air 03/27/23 10:23 BMI result Body Mass Index 29.3 Constitutional - Awake and Alert, No apparent distress Eyes - PERRLA, EOMI Cardiovascular - S1S2, RRR, No edema Respiratory - Normal lung expansion, Normal respiratory effort, No respiratory distress, CTA bilaterally Gastrointestinal - mild epigastric and RUQ ttp. ND; +BS; No rebound or guarding Extremities - no calf tenderness bilaterally, no swelling Skin - Warm/Dry Neurological - Alert & oriented x4, CN II-XII in tact, tremulous with outstretched hands Psychological - anxious/aggitated appearing, fidgeting. Reports / Results Labs 03/27/23 08:07 03/27/23 08:07 Labs: Laboratory Results - last 24 hr 03/27/23 03/27/23 03/27/23 08:07 08:07 08:07 MCV 87.0 MCH 31.2 MCHC 35.8 RDW 12.6 Plt Count 459 H MPV 8.7 L Immature Gran % (Auto) 0.3 Neut % (Auto) 60.8 Lymph % (Auto) 23.9 Harris % (Auto) 10.2 Eos % (Auto) 4.0 Baso % (Auto) 0.8 Lymph # (Auto) 2.5 Harris # (Auto) 1.1 Eos # (Auto) 0.4 Baso # (Auto) 0.1 Abs Immat Gran (auto) 0.03 Absolute Neuts (auto) 6.5 Absolute Nucleated RBC 0.000 Nucleated RBC % (auto) 0.0 Anion Gap 23 H Estim Creat Clear Calc 122.3 Estimated GFR > 60 Random Glucose 116 H Calcium 9.7 D Magnesium 1.7 Total Bilirubin 0.6 Direct Bilirubin 0.3 AST 61 H ALT 43 H Alkaline Phosphatase 70 Total Protein 7.8 Albumin 4.4 Lipase 15 Urine Opiates Screen Urine Fentanyl Screen Ur Barbiturates Screen Ur Phencyclidine Scrn Ur Amphetamines Screen U Benzodiazepines Scrn Urine Cocaine Screen U Marijuana (THC) Screen Ethyl Alcohol 48 03/27/23 09:34 MCV MCH MCHC RDW Plt Count MPV Immature Gran % (Auto) Neut % (Auto) Lymph % (Auto) Harris % (Auto) Eos % (Auto) Baso % (Auto) Lymph # (Auto) Harris # (Auto) Eos # (Auto) Baso # (Auto) Abs Immat Gran (auto) Absolute Neuts (auto) Absolute Nucleated RBC Nucleated RBC % (auto) Anion Gap Estim Creat Clear Calc Estimated GFR Random Glucose Calcium Magnesium Total Bilirubin Direct Bilirubin AST ALT Alkaline Phosphatase Total Protein Albumin Lipase Urine Opiates Screen Not Detected Urine Fentanyl Screen Not Detected Ur Barbiturates Screen POSITIVE H Ur Phencyclidine Scrn Not Detected Ur Amphetamines Screen Not Detected U Benzodiazepines Scrn Not Detected Urine Cocaine Screen POSITIVE H U Marijuana (THC) Screen POSITIVE H Ethyl Alcohol Assessment and Plan (1) Alcohol withdrawal syndrome: Qualifiers: Complication of substance-induced condition: uncomplicated Qualified Code(s): F10.930 - Alcohol use, unspecified with withdrawal, uncomplicated Status: Acute (2) Anxiety and depression: Status: Acute (3) Cocaine use: Status: Acute Plan 31-year-old male with history of alcohol dependence, history of alcohol withdrawal seizure, and GERD admitted for alcohol dependence at risk for severe withdrawal. #Acute alcohol withdrawal -Phenobarb initiated per protocol by ED -on my exam, CIWA score 17, given additional 130 mg IV phenobarb. No evidence of DTs at time of exam -monitor CIWA q.4h -given IV thiamine 200 mg in ED (initiated 03/27), continue IV thiamine 100 mg daily x3 days, then p.o. -folic acid 1 mg p.o. daily -magnesium low normal at 1.7, given 2 g of IV Mag in the ED, continue 400 mg magnesium oxide daily -patient desires detox-addiction medicine consult placed -patient intermittently tachycardic secondary to withdrawal, monitor on telemetry -will monitor patient on med/tele for closer monitoring given severity of alcohol withdrawal and history of alcohol withdrawal seizures -seizure precautions #Epigastric pain/chest pain- likely Alcoholic gastritis -atypical-described as burning and mild pressure. -EKG nonischemic. Trop ordered -Continue omeprazole 40 mg daily -Maalox, Tums p.r.n. # depression -no SI/HI but likely contributing to patient's alcohol use -psychiatry consult #Polysubstance abuse -Utox positive for cocaine, THC- reports 1st time use -addiction med consult DVT prophylaxis-Lovenox Full code Patient requires inpatient stay at least 2 midnights for management of acute alcohol withdrawal in patient who is at risk for severe withdrawal or seizures being managed with phenobarbital per protocol which cannot take place in lower level of care Time Spent With Patient Time: Total time managing care of this patient today ____ minutes. Quality Stroke Does the patient have a stroke diagnosis?: No VTE Prior VTE?: No VTE Risk Level:: Medical - moderate - high VTE Device Contraindication: Treatment Not Indicated VTE Drug Contraindication: N/A - Med Ordered
[2023-03-27] MEDS: PHENobarbitaL sodium 130 MG/ML VIAL IVPUSH (12:06)
[2023-03-27] MEDS: Magnesium Oxide 400 MG TABLET PO (12:40)
[2023-03-27] MEDS: Folic Acid 1 MG TABLET PO (12:40)
--- NOTE | 2023-03-27 12:43 | MHC.CM.PN ---
This conventional underwriter met with patient for CM assessment. From home, independent. PCP Tere Moody from [place]. DCP- home no services, family to transport.
--- NOTE | 2023-03-27 12:47 | PC.NURSE ---
pt medicated per MAR, resting quietly, case management at bedside.
[2023-03-27 13:05] LABS: Venous Blood Gas Refer to POC result
[2023-03-27 13:05] LABS: VBG Base Excess 1.7 mmol/L; VBG HCO3 26 mmol/L (22-26); VBG pCO2 40 mmHg; VBG pH 7.42 (7.32-7.43); VBG pO2 71 mmHg
--- NOTE | 2023-03-27 13:22 | PM.EVENT ---
Event Note Date of Service: 03/27/23 Event Note: Received consult for psych re: depression. Pt currently withdrawing from alcohol. Discussed with hospitalist, Kaylyn Carranza- to see pt tomorrow once alcohol withdrawal in better control to assess mood. Time Spent With Patient Time: Total time managing care of this patient today ____ minutes.
--- NOTE | 2023-03-27 13:32 | PC.NURSE ---
attempted to call report, no answer, nurse notified via [employer].
[2023-03-27 13:39] LABS: Troponin-I High Sensitivity 4.9 ng/L (<3.5-35.0)
--- NOTE | 2023-03-27 14:10 | PC.NURSE ---
RN-RN report called into [facility].
[2023-03-27] MEDS: Lactated Ringers 1,000 ML 125 ML IVCONT (14:49)
[2023-03-27 15:27] LABS: Anion Gap 10 (12-20); Blood Urea Nitrogen 3 mg/dL (9-16); Calcium 8.9 mg/dL (8.4-10.2); Carbon Dioxide 28 mmol/L (22-29); Chloride 106 mmol/L (96-108); Creatinine Clr Calc Pharmacy 144.1; Estimated Glomerular Filt Rate > 60; Glucose Random 106 mg/dL (60-115); Potassium 3.8 mmol/L (3.3-5.1); Sodium 140 mmol/L (135-145)
[2023-03-27] MEDS: PHENobarbitaL 15 MG TABLET 45 MG PO (20:56)
[2023-03-27] MEDS: Acetaminophen 325 MG TABLET 650 MG PO (20:57)
[2023-03-28] MEDS: 0.9 % Sodium Chloride Flush 3 ML SYRINGE IVFLUSH (02:23)
[2023-03-28] MEDS: Acetaminophen 325 MG TABLET 650 MG PO (02:31)
[2023-03-28 03:33] VITALS: BP 133/81; PULSE 50; RESP 16; TEMP 37.2; O2SAT 96
[2023-03-28] MEDS: Omeprazole 40 MG CAPSULE.DR PO (05:44)
[2023-03-28 07:05] LABS: MANUAL DIFF FLAG NO
[2023-03-28 07:09] LABS: Basophils Absolute Auto 0.1 X10*3/uL (0.0-0.2); Basophils Percent Auto 0.9 % (0-2); Eosinophils Absolute Auto 0.4 X10*3/uL (0.0-0.4); Hemoglobin 13.4 g/dl (14.0-18.0); Imm Gran Abs Auto 0.01 X10*3/uL (0.00-0.03); Imm Gran Pct Auto 0.1 % (0.0-0.4); Lymphocytes Absolute Auto 2.3 X10*3/uL (1.2-4.9); Lymphocytes Percent Auto 33.5 % (20-40); Mean Corpuscular HGB Conc 34.4 g/dl (31.0-36.0); Mean Corpuscular Hemoglobin 30.9 pg (27.0-33.0); Mean Corpuscular Volume 89.9 fL (80.0-98.0); Monocytes Absolute Auto 0.7 X10*3/uL (0.1-1.2); Monocytes Percent Auto 10.5 % (2-11); Neutrophils Absolute Auto 3.4 x10*3/uL (2.0-8.3); Platelet Count 362 X10*3/uL (160-400); Red Blood Count 4.34 X10*6/uL (4.60-5.80); Red Cell Distribution Width 12.4 % (11.0-16.0)
[2023-03-28 07:13] VITALS: BP 110/70; PULSE 42; RESP 16; TEMP 36.9; O2SAT 95
[2023-03-28 07:30] LABS: Anion Gap 10 (12-20); Blood Urea Nitrogen 5 mg/dL (9-16); Calcium 8.8 mg/dL (8.4-10.2); Carbon Dioxide 27 mmol/L (22-29); Chloride 104 mmol/L (96-108); Creatinine Clr Calc Pharmacy 144.1; Estimated Glomerular Filt Rate > 60; Glucose Random 88 mg/dL (60-115); Magnesium 2.2 mg/dL (1.6-2.6); Potassium 3.4 mmol/L (3.3-5.1); Sodium 138 mmol/L (135-145)
[2023-03-28 07:43] LABS: Appearance Urine Clear; Color Urine Yellow; Glucose Urine UA Negative (Negative); Leukocyte Esterase Urine Negative (Negative); Nitrite Urine Negative (Negative); PH 7.5 (5.0-9.0); Specific Gravity - Urine <= 1.005 (1.005-1.025); Urine Blood Negative (Negative); Urine Ketones Negative (Negative); Urine Protein Negative (Neg-Trace)
[2023-03-28] MEDS: Magnesium Oxide 400 MG TABLET PO (09:23)
[2023-03-28] MEDS: Folic Acid 1 MG TABLET PO (09:23)
[2023-03-28] MEDS: PHENobarbitaL 15 MG TABLET 45 MG PO (09:24)
[2023-03-28] MEDS: Thiamine HCL 100 MG in 0.9 % Sodium Chloride 100 ML 202 MG IV (09:24)
[2023-03-28] MEDS: Enoxaparin Sodium 40 MG/0.4 ML SYRINGE SUBCUT (11:26)
[2023-03-28 11:32] VITALS: BP 106/59; RESP 16; TEMP 36.7; O2SAT 96
--- NOTE | 2023-03-28 13:15 | P.PNIM_ITS ---
Subjective Subjective Date of Service: 03/28/23 Interval History: complaining of generalize pain no nausea no vomiting no headache, denies shakiness tremors, appears less anxious has been taking all medications as prescribed, tolerating diet denies nausea vomiting, abdominal pain has improved, no other acute issues overnight. Review of Systems all other system reviewed and negative. Physical Exam Vital Signs: Vital Signs: Last Vital Signs Temp 98.1 F 03/28/23 11:32 Pulse 42 L 03/28/23 07:13 Resp 16 03/28/23 11:32 BP 106/59 L 03/28/23 11:32 Pulse Ox 96 03/28/23 11:32 O2 Del Method Room Air 03/28/23 03:33 BMI result Body Mass Index 32.6 Const: Other: General alert oriented x3, in no acute distress. Neck supple, no JVD. CVS regular rate rhythm, Respiratory lungs clear to auscultation, no respiratory distress, no wheeze, no rhonchi. Gastrointestinal abdomen soft, mild epigastric discomfort, bowel sounds audible, no guarding , no rigidity. Extremities no edema. Neuro nonfocal , no tremors Skin no rash psych appropriate affect Objective Data Active Medications Acetaminophen (Acetaminophen 325 Mg Tablet) 650 mg PO Q6H PRN PRN Reason: Pain, Mild (Pain Scale 1-3) Last Admin: 03/28/23 02:31 Dose: 650 mg Documented By: JORGE Al Hydroxide/Mg Hydroxide (Magnesium Hydrox/Alum Hydrox 30 Ml Oral.Susp) 30 ml PO Q4H PRN PRN Reason: Heartburn/Nausea Docusate Sodium (Docusate Sodium 100 Mg Capsule) 100 mg PO DAILY PRN PRN Reason: Constipation Enoxaparin Sodium (Enoxaparin Sodium 40 Mg/0.4 Ml Syringe) 40 mg SUBCUT Q24H ON LICENSE OF [facility] Last Admin: 03/28/23 11:26 Dose: 40 mg Documented By: PAULA Folic Acid (Folic Acid 1 Mg Tablet) 1 mg PO DAILY ON LICENSE OF [facility] Last Admin: 03/28/23 09:23 Dose: 1 mg Documented By: PAULA Thiamine HCl 100 mg/ Sodium (Chloride) 101 mls @ 202 mls/hr IV DAILY ON LICENSE OF [facility] Last Infusion: 03/28/23 10:17 Dose: 0 mls/hr Documented By: PAULA Magnesium Oxide (Magnesium Oxide 400 Mg Tablet) 400 mg PO DAILY ON LICENSE OF [facility] Last Admin: 03/28/23 09:23 Dose: 400 mg Documented By: PAULA Omeprazole (Omeprazole 40 Mg Capsule.) 40 mg PO DAILY@0630 ON LICENSE OF [facility] Last Admin: 03/28/23 05:44 Dose: 40 mg Documented By: JORGE Omeprazole (Omeprazole 40 Mg Capsule.) 40 mg PO BID@0630 ON LICENSE OF [facility] Last Admin: 03/28/23 05:46 Dose: Not Given Documented By: JORGE Non-Admin Reason: previously given Ondansetron HCl (Ondansetron Hcl 4 Mg/2 Ml Vial) 4 mg IVPUSH Q8H PRN PRN Reason: Nausea and Vomiting Pharmacy Consult (Consult Rx Etoh Phenob Im/Po) 1 each MISCELLANE ONCE PRN; Protocol PRN Reason: Consult order Phenobarbital (Phenobarbital 15 Mg Tablet) 45 mg PO BID ON LICENSE OF [facility] Stop: 03/29/23 09:01 Last Admin: 03/28/23 09:24 Dose: 45 mg Documented By: PAULA Phenobarbital (Phenobarbital 30 Mg Tablet) 30 mg PO BID ON LICENSE OF [facility] Stop: 03/31/23 09:01 Phenobarbital (Phenobarbital 30 Mg Tablet) 30 mg PO DAILY ON LICENSE OF [facility] Stop: 04/02/23 09:01 Sodium Chloride (0.9 % Sodium Chloride Flush 3 Ml Syringe) 3 ml IVFLUSH QSHIFT ON LICENSE OF [facility] Last Admin: 03/28/23 07:26 Dose: Not Given Documented By: PAULA Non-Admin Reason: See Note Labs 03/28/23 06:23 03/28/23 06:23 Labs: Laboratory Results - last 24 hr 03/27/23 03/27/23 03/28/23 09:34 15:06 06:23 MCV 89.9 MCH 30.9 MCHC 34.4 RDW 12.4 Plt Count 362 MPV 9.0 L Immature Gran % (Auto) 0.1 Neut % (Auto) 49.0 Lymph % (Auto) 33.5 [place] % (Auto) 10.5 Eos % (Auto) 6.0 H Baso % (Auto) 0.9 Lymph # (Auto) 2.3 [place] # (Auto) 0.7 Eos # (Auto) 0.4 Baso # (Auto) 0.1 Abs Immat Gran (auto) 0.01 Absolute Neuts (auto) 3.4 Absolute Nucleated RBC 0.000 Nucleated RBC % (auto) 0.0 Anion Gap 10 L Estim Creat Clear Calc 144.1 Estimated GFR > 60 Random Glucose 106 Calcium 8.9 D Magnesium Urine Color Yellow Urine Appearance Clear Urine pH 7.5 Ur Specific [place] <= 1.005 Urine Protein Negative Urine Glucose (UA) Negative Urine Ketones Negative Urine Blood Negative Urine Nitrite Negative Ur Leukocyte Esterase Negative 03/28/23 06:23 MCV MCH MCHC RDW Plt Count MPV Immature Gran % (Auto) Neut % (Auto) Lymph % (Auto) [place] % (Auto) Eos % (Auto) Baso % (Auto) Lymph # (Auto) [place] # (Auto) Eos # (Auto) Baso # (Auto) Abs Immat Gran (auto) Absolute Neuts (auto) Absolute Nucleated RBC Nucleated RBC % (auto) Anion Gap 10 L Estim Creat Clear Calc 144.1 Estimated GFR > 60 Random Glucose 88 Calcium 8.8 Magnesium 2.2 Urine Color Urine Appearance Urine pH Ur Specific [place] Urine Protein Urine Glucose (UA) Urine Ketones Urine Blood Urine Nitrite Ur Leukocyte Esterase Assessment and Plan (1) Alcohol withdrawal syndrome: Status: Acute (2) Cocaine use: Status: Acute Plan 31-year-old male with history of alcohol dependence, history of alcohol withdrawal seizure, and GERD admitted for alcohol dependence at risk for severe withdrawal. #Acute alcohol withdrawal - no withdrawal symptoms, continue phenobarbPhenobarb initiated per protocol by ED -given IV thiamine 200 mg in ED (initiated 03/27), continue IV thiamine 100 mg daily x3 days, then p.o. -folic acid 1 mg p.o. daily -magnesium improved from 1.7-2.2 status post IV magnesium continue by mouth magnesium oxide daily -addiction medicine consult placed/ seizure precautions # Anion gap metabolic acidosis due to alcohol resolved # elevated LFTs likely due to alcoho,l no nausea, no vomiting, no further intervention warranted. 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 Trop neg -Continue omeprazole 40 mg daily,Maalox, Tums p.r.n. # depression -no SI/HI but likely contributing to patient's alcohol use, seen by psych since patient was actively withdrawing from alcohol they will reassess patient today #Polysubstance abuse -Utox positive for cocaine, THC- reports 1st time use -addiction med consult DVT prophylaxis-Lovenox Full code Patient requires continued inpatient stay for management of acute alcohol withdrawal with high risk for severe withdrawal or seizures being managed with phenobarbital per protocol which cannot take place in lower level of care Time Spent With Patient Time: Total time managing care of this patient today ____ minutes. Quality Stroke Does the patient have a stroke diagnosis?: No VTE Prior VTE?: No VTE Risk Level:: Medical - moderate - high VTE Device Contraindication: Treatment Not Indicated VTE Drug Contraindication: N/A - Med Ordered
--- NOTE | 2023-03-28 13:20 | MHC.RECOVRN ---
T/w in to meet with pt to discuss recovery options/goals, and to see where pt is currently at. Pt supine in bed, room darkened. Pt soft spoken, sad affect. Pt endorsing depression, stating that he would prefer to sleep all day and feels better when he is sleeping. Pt denies thoughts of SI. Pt reports his current ETOH use is daily and is 1/2-1 gallon daily for at least the past few months. Pt unable to articulate any goals for recovery at this time, reports he does not have strong supports at home, is overwhelmed by his familial responsibilities and feels helpless. Pt unable to commit at this time to any inpatient substance use treatment due to his family obligations. Pt feels as though if he did try to do a recovery program that his family would become homeless without his income to pay bills. Plan for pt to be eval'd by psych, and recovery to follow up.
--- NOTE | 2023-03-28 14:54 | P.CNPS_ITS ---
History of Present Illness Date of Service: 03/28/2023 Chief Complaint: etoh withdrawl, elevated CIWA, hx withdrawl seizur Reason for Consult: depression Requesting physician: Kaylyn Carranza Discussed with referring provider: Yes HPI Narrative: Mr. Burns is a 32 year-old male with hx of alcohol use disorder self presented to ED asking for detox. Note that pt was discharged from medical floor two days prior where he was receiving tx for alcohol withdrawal. Pt was started on thiamine and phenobarbital protocol. Pt presents as fully oriented. He reports he has been feeling more depressed in the past 2 months. He endorses anhedonia, hopelessness, passive SI but adamantly denies any plan or intent to harm himself. He reports he lives with his of 14 years and their 4 year old daughter. He reports he works nights and during the day after daughter comes from school he cares for daughter. He reports he has not been able to follow up with appointments in the community as he is busy or working. He denies hallucinations outside of alcohol withdrawing context. He reports having nightmares and flashbacks of past trauma. He denies hx of suicide attempts. Past Psychiatric History: Inpatient: denies OP: none Past med trials: citalopram (limited therapeutic efficacy) Medical Evaluation Reviewed: Yes [facility] Medical History Anxiety and depression ETOH abuse History of seizure due to alcohol withdrawal Diagnostics Vital Signs (24Hr): Vital Signs - 24 hr 03/27/23 15:02 03/27/23 19:57 03/27/23 23:42 Temperature 98.8 F 98.0 F 97.9 F Pulse Rate 89 86 50 Respiratory Rate 18 18 18 Blood Pressure 124/84 133/87 134/81 Pulse Oximetry 98 98 97 Oxygen Delivery Method Room Air Room Air Room Air 03/28/23 03:33 03/28/23 07:13 03/28/23 11:32 Temperature 99.0 F 98.5 F 98.1 F Pulse Rate 50 42 L Respiratory Rate 16 16 16 Blood Pressure 133/81 110/70 106/59 L Pulse Oximetry 96 95 96 Oxygen Delivery Method Room Air BMI result Body Mass Index 32.6 Labs 03/28/23 06:23 03/28/23 06:23 Labs: Laboratory Results - last 48 hr 03/27/23 03/27/23 03/27/23 08:07 08:07 08:07 WBC 10.6 RBC 5.23 Hgb 16.3 Hct 45.5 MCV 87.0 MCH 31.2 MCHC 35.8 RDW 12.6 Plt Count 459 H MPV 8.7 L Immature Gran % (Auto) 0.3 Neut % (Auto) 60.8 Lymph % (Auto) 23.9 [place] % (Auto) 10.2 Eos % (Auto) 4.0 Baso % (Auto) 0.8 Lymph # (Auto) 2.5 [place] # (Auto) 1.1 Eos # (Auto) 0.4 Baso # (Auto) 0.1 Abs Immat Gran (auto) 0.03 Absolute Neuts (auto) 6.5 Absolute Nucleated RBC 0.000 Nucleated RBC % (auto) 0.0 VBG pH VBG pCO2 VBG pO2 VBG HCO3 VBG O2 Saturation VBG Base Excess Sodium 139 Potassium 3.3 Chloride 102 Carbon Dioxide 17 L Anion Gap 23 H BUN 3 L Creatinine 0.94 Estim Creat Clear Calc 122.3 Estimated GFR > 60 Random Glucose 116 H Calcium 9.7 D Magnesium 1.7 Total Bilirubin 0.6 Direct Bilirubin 0.3 AST 61 H ALT 43 H Alkaline Phosphatase 70 Troponin I High Sens Total Protein 7.8 Albumin 4.4 Lipase 15 Urine Color Urine Appearance Urine pH Ur Specific [place] Urine Protein Urine Glucose (UA) Urine Ketones Urine Blood Urine Nitrite Ur Leukocyte Esterase Urine Opiates Screen Urine Fentanyl Screen Ur Barbiturates Screen Ur Phencyclidine Scrn Ur Amphetamines Screen U Benzodiazepines Scrn Urine Cocaine Screen U Marijuana (THC) Screen Ethyl Alcohol 48 03/27/23 03/27/23 03/27/23 09:34 09:34 12:56 WBC RBC Hgb Hct MCV MCH MCHC RDW Plt Count MPV Immature Gran % (Auto) Neut % (Auto) Lymph % (Auto) [place] % (Auto) Eos % (Auto) Baso % (Auto) Lymph # (Auto) [place] # (Auto) Eos # (Auto) Baso # (Auto) Abs Immat Gran (auto) Absolute Neuts (auto) Absolute Nucleated RBC Nucleated RBC % (auto) VBG pH VBG pCO2 VBG pO2 VBG HCO3 VBG O2 Saturation VBG Base Excess Sodium Potassium Chloride Carbon Dioxide Anion Gap BUN Creatinine Estim Creat Clear Calc Estimated GFR Random Glucose Calcium Magnesium Total Bilirubin Direct Bilirubin AST ALT Alkaline Phosphatase Troponin I High Sens 4.9 D Total Protein Albumin Lipase Urine Color Yellow Urine Appearance Clear Urine pH 7.5 Ur Specific [place] <= 1.005 Urine Protein Negative Urine Glucose (UA) Negative Urine Ketones Negative Urine Blood Negative Urine Nitrite Negative Ur Leukocyte Esterase Negative Urine Opiates Screen Not Detected Urine Fentanyl Screen Not Detected Ur Barbiturates Screen POSITIVE H Ur Phencyclidine Scrn Not Detected Ur Amphetamines Screen Not Detected U Benzodiazepines Scrn Not Detected Urine Cocaine Screen POSITIVE H U Marijuana (THC) Screen POSITIVE H Ethyl Alcohol 03/27/23 03/27/23 03/28/23 13:02 15:06 06:23 WBC 7.0 RBC 4.34 L Hgb 13.4 L Hct 39.0 L MCV 89.9 MCH 30.9 MCHC 34.4 RDW 12.4 Plt Count 362 MPV 9.0 L Immature Gran % (Auto) 0.1 Neut % (Auto) 49.0 Lymph % (Auto) 33.5 [place] % (Auto) 10.5 Eos % (Auto) 6.0 H Baso % (Auto) 0.9 Lymph # (Auto) 2.3 [place] # (Auto) 0.7 Eos # (Auto) 0.4 Baso # (Auto) 0.1 Abs Immat Gran (auto) 0.01 Absolute Neuts (auto) 3.4 Absolute Nucleated RBC 0.000 Nucleated RBC % (auto) 0.0 VBG pH 7.42 VBG pCO2 40 VBG pO2 71 VBG HCO3 26 VBG O2 Saturation 93.0 VBG Base Excess 1.7 Sodium 140 Potassium 3.8 Chloride 106 Carbon Dioxide 28 Anion Gap 10 L BUN 3 L Creatinine 0.84 Estim Creat Clear Calc 144.1 Estimated GFR > 60 Random Glucose 106 Calcium 8.9 D Magnesium Total Bilirubin Direct Bilirubin AST ALT Alkaline Phosphatase Troponin I High Sens Total Protein Albumin Lipase Urine Color Urine Appearance Urine pH Ur Specific [place] Urine Protein Urine Glucose (UA) Urine Ketones Urine Blood Urine Nitrite Ur Leukocyte Esterase Urine Opiates Screen Urine Fentanyl Screen Ur Barbiturates Screen Ur Phencyclidine Scrn Ur Amphetamines Screen U Benzodiazepines Scrn Urine Cocaine Screen U Marijuana (THC) Screen Ethyl Alcohol 03/28/23 06:23 WBC RBC Hgb Hct MCV MCH MCHC RDW Plt Count MPV Immature Gran % (Auto) Neut % (Auto) Lymph % (Auto) [place] % (Auto) Eos % (Auto) Baso % (Auto) Lymph # (Auto) [place] # (Auto) Eos # (Auto) Baso # (Auto) Abs Immat Gran (auto) Absolute Neuts (auto) Absolute Nucleated RBC Nucleated RBC % (auto) VBG pH VBG pCO2 VBG pO2 VBG HCO3 VBG O2 Saturation VBG Base Excess Sodium 138 Potassium 3.4 Chloride 104 Carbon Dioxide 27 Anion Gap 10 L BUN 5 L Creatinine 0.84 Estim Creat Clear Calc 144.1 Estimated GFR > 60 Random Glucose 88 Calcium 8.8 Magnesium 2.2 Total Bilirubin Direct Bilirubin AST ALT Alkaline Phosphatase Troponin I High Sens Total Protein Albumin Lipase Urine Color Urine Appearance Urine pH Ur Specific [place] Urine Protein Urine Glucose (UA) Urine Ketones Urine Blood Urine Nitrite Ur Leukocyte Esterase Urine Opiates Screen Urine Fentanyl Screen Ur Barbiturates Screen Ur Phencyclidine Scrn Ur Amphetamines Screen U Benzodiazepines Scrn Urine Cocaine Screen U Marijuana (THC) Screen Ethyl Alcohol Mental Status Exam Mental Status Exam Narrative: Appearance: wearing hospital gown, good hygiene, in NAD behavior: cooperative Speech: clear, normal rate/rhythm/volume, spontaneous TP: linear TC: hopeless, anhedonia Mood: depressed, very anxious Affect: tearful at times, blunted SI: none HI: none VH:none AH: none Delusions: none Alert, oriented x 3. grossly intact to conversational testing. Medications Medications Current Medications Acetaminophen (Acetaminophen 325 Mg Tablet) 650 mg PO Q6H PRN PRN Reason: Pain, Mild (Pain Scale 1-3) Last Admin: 03/28/23 02:31 Dose: 650 mg Al Hydroxide/Mg Hydroxide (Magnesium Hydrox/Alum Hydrox 30 Ml Oral.Susp) 30 ml PO Q4H PRN PRN Reason: Heartburn/Nausea Docusate Sodium (Docusate Sodium 100 Mg Capsule) 100 mg PO DAILY PRN PRN Reason: Constipation Enoxaparin Sodium (Enoxaparin Sodium 40 Mg/0.4 Ml Syringe) 40 mg SUBCUT Q24H [facility] Last Admin: 03/28/23 11:26 Dose: 40 mg Folic Acid (Folic Acid 1 Mg Tablet) 1 mg PO DAILY [facility] Last Admin: 03/28/23 09:23 Dose: 1 mg Thiamine HCl 100 mg/ Sodium (Chloride) 101 mls @ 202 mls/hr IV DAILY [facility] Last Infusion: 03/28/23 10:17 Dose: Infused Magnesium Oxide (Magnesium Oxide 400 Mg Tablet) 400 mg PO DAILY [facility] Last Admin: 03/28/23 09:23 Dose: 400 mg Omeprazole (Omeprazole 40 Mg Capsule.Dr) 40 mg PO BID@0630 [facility] Last Admin: 03/28/23 05:46 Dose: Not Given Ondansetron HCl (Ondansetron Hcl 4 Mg/2 Ml Vial) 4 mg IVPUSH Q8H PRN PRN Reason: Nausea and Vomiting Pharmacy Consult (Consult Rx Etoh Phenob Im/Po) 1 each MISCELLANE ONCE PRN; Protocol PRN Reason: Consult order Phenobarbital (Phenobarbital 15 Mg Tablet) 45 mg PO BID [facility] Stop: 03/29/23 09:01 Last Admin: 03/28/23 09:24 Dose: 45 mg Phenobarbital (Phenobarbital 30 Mg Tablet) 30 mg PO BID [facility] Stop: 03/31/23 09:01 Phenobarbital (Phenobarbital 30 Mg Tablet) 30 mg PO DAILY [facility] Stop: 04/02/23 09:01 Sodium Chloride (0.9 % Sodium Chloride Flush 3 Ml Syringe) 3 ml IVFLUSH QSHIFT [facility] Last Admin: 03/28/23 13:38 Dose: Not Given Allergies Allergies Allergy/AdvReac Type Severity Reaction Status Date / Time No Known Allergies Allergy Verified 08/11/22 08:14 Assessment & Plan Assessment & Plan (1) MDD (major depressive disorder), recurrent episode, moderate: Status: Acute Code(s): F33.1 - Major depressive disorder, recurrent, moderate (2) Alcohol use disorder, moderate, dependence: Status: Acute Code(s): F10.20 - Alcohol dependence, uncomplicated Plan Mr. Burns is a 32 year-old male with hx of alcohol use disorder, depression and trauma. Pt self presented for alcohol withdrawal and presented with alcoholic hallucinosis, started on phenobarb protocol and high dose of thiamine. Pt today presented fully oriented and without signs of delirium or DTs. Pt reports long hx of depression, esteeming from hx of trauma mostly untreated for years and patient has been self medicating with alcohol. He denies any plan or intent to harm himself and identifies daughter as protective factor. Pt has been limited by current work schedule and need to pay rent to attend residential substance use treatment and to follow up with psychiatric care. He has been on citalopram with limited benefit. We discussed risks, benefits and alternative treatment options. he agrees to start effexor 37.5mg po daily x 3 days, then increase to 75 mg po daily. Start prazosin 1mg po qhs for nightmares. PLAN 1. No need for inpatient psych level of care. No imminent safety concerns in terms of SI or HI. 2. Case management to connect with outpatient psychiatry services. 3. start effexor ER 37.5mg po daily x 3 days, then increase, if no side effects (exacerbation in anxiety or hypertension or SIMPSON), to 75 mg po daily 4. start prazosin 1mg po qhs- hold if SBP less than 90, DBP less than 50, HR less than 53. or if ortho hotn. Total time managing care of this patient today ____ minutes.
[2023-03-28] MEDS: Venlafaxine HCl ER 37.5 MG CAP.ER.24H PO (15:45)
[2023-03-28 16:00] VITALS: BP 140/90; PULSE 60; RESP 18; TEMP 36.7; O2SAT 100
--- NOTE | 2023-03-28 17:14 | PC.NURSE ---
pt stating he wants to leave AMA. informed. Pt stated he is sure he wants to leave and is requesting a document stating he was hospitalized. informed. BILINGUAL NANNY at bedside speaking to pt. IV and tele removed. to give form to pt with hospitalized dates but not a return to work authorization form
--- NOTE | 2023-03-28 17:16 | PM.DS ---
DS: Providers Provider Date of Service: 03/28/23 Date of admission: 03/27/23 11:46 Primary care physician: None Physician Consults: 03/27/23 12:17 Addiction Medicine Routine Consulting Provider: Addiction Covering Reason for consultation: alcohol dependence Consult to Psychiatry Routine Consulting Provider: Psych Covering Reason for consultation: depression, etoh dependence (addiction team also involved) DS: Diagnosis Discharge Diagnosis (1) MDD (major depressive disorder), recurrent episode, moderate: Status: Acute (2) Alcohol use disorder, moderate, dependence: Status: Acute DS: Summary Hospital Course Hospital Course: Date of Service: 03/27/23 Attending physician on admission: Tyron Bhatti Chief Complaint: etoh wtihdrawal 31-year-old male with history of alcohol dependence, history of alcohol withdrawal seizure, and GERD presented to the ED earlier today for evaluation of alcohol withdrawal.? The patient states he has a history of heavy alcohol consumption and for the last 7 days has been bingeing on alcohol consuming 50 beers daily and nearly 1L hard alcohol daily. He states he will black out, fall asleep, and start drinking again upon waking. Last alcohol was last night at 8pm. He has been admitted several time for detox but left early due to concerns with his job. he now has a new job who is more understanding and he is motivated to detox. He currently reports paranoia, auditory and visual hallucinations, tremors, aggitation, and significant anxiety after initial load with phenobarb in the ED. Symptoms did improve with addl scheduled dose phenobarb but he is now reporting an out of body experience stating this doesnt feel feel and is still reporting AH, headache. No n/v. Having epigastric pain radiating into the chest described as burning/heavy. He is A&Ox4. On arrival pt tachycardic to 130 which improved with phenobarb but has recurred.? Also mildly hypertensive but vitals otherwise within normal limits.? He does have history etoh withdrawal seizure last month. He does report depressive symptoms and significant anxiety as well but denies any SI/HI. He also reports first time use inh cocaine yesterday but denies any other illicit drug use. No cigarettes.? Hematology studies unremarkable.? Renal function normal, electrolytes normal except for CO2 17, anion gap 23.? Magnesium 1.7.? AST 61, ALT 43, total and direct bilirubin within normal limits.? Urine tox screen positive for for barbiturates likely from phenobarb, cocaine, and THC.? Ethyl alcohol level 48.? EKG showing sinus tachycardia, rate [address]/T-wave abnormality.? In the ED, initiated on phenobarbital per protocol, 40 mEq of potassium chloride, IV thiamine, Decadron, and 2 g IV magnesium. hospital course: 31-year-old male with history of alcohol dependence, history of alcohol withdrawal seizure, and GERD admitted for alcohol dependence at risk for severe withdrawal, patient admitted to medical floor and was placed on phenobarb protocol, IV thiamine and folic acid, he received IV magnesium due to hypo magnesemia, patient was evaluated by recovery team however patient did not commit for any inpatient substance use treatment due to his family obligations, patient also noted to have mildly elevated LFTs and anicteric metabolic acidosis treated with IV fluids normalization of anion gap, later in the day patient decided to leave hospital against medical advice patient was informed about risk of withdrawal and seizures however patient understood the risk but left the hospital, in regard to his epigastric discomfort he was treated with omeprazole and Maalox with good resolution of symptoms, In regard to his depression patient had no suicidal ideation was seen by inpatient psychiatry they recommended Effexor 37.5 mg daily x3 days followed by 75 mg daily and patient was also placed on prazosin 1 mg at bedtime with close monitoring of blood pressure, however since patient is leaving hospital against medical advice recommend outpatient psychiatric follow-up, in regard to polysubstance abuse his U tox was positive for cocaine, seen by Addiction Team, strongly recommend to abstain from illicit drug use. Discharge diagnosis Acute alcohol withdrawal Anion gap metabolic acidosis Elevated LFTs Depression Polysubstance abuse Epigastric pain Time Spent with Patient Time attestation: Total time managing care of this patient today ____ minutes. Discharge coordination time: Greater than 30 minutes Quality: Safe Use of Opioids Does Pt have an Active Cancer Diagnosis on the Problem List?: No Quality: Stroke Does the patient have a stroke diagnosis?: No Physical Exam Vital Signs: Vital Signs: Last Vital Signs Temp 98.0 F 03/28/23 16:00 Pulse 60 03/28/23 16:00 Resp 18 03/28/23 16:00 BP 140/90 H 03/28/23 16:00 Pulse Ox 100 03/28/23 16:00 O2 Del Method Room Air 03/28/23 16:00 BMI result Body Mass Index 32.6 Const: Other: General? alert oriented x3, in no acute distress.? Neck supple, no JVD. CVS? regular rate rhythm, Respiratory lungs clear to auscultation, no respiratory distress, no wheeze, no rhonchi. Gastrointestinal abdomen soft,? mild epigastric discomfort, bowel sounds audible, no guarding , no rigidity. Extremities no edema. Neuro nonfocal , no tremors Skin no rash psych appropriate affect DS: Data Data Completed and Pending Completed studies during hospitalization [Text1]: Procedures Detoxification Services for Substance Abuse Treatment (03/23/23) Labs on day of discharge: Laboratory Results - last 24 hr 03/27/23 03/28/23 03/28/23 09:34 06:23 06:23 WBC 7.0 RBC 4.34 L Hgb 13.4 L Hct 39.0 L MCV 89.9 MCH 30.9 MCHC 34.4 RDW 12.4 Plt Count 362 MPV 9.0 L Immature Gran % (Auto) 0.1 Neut % (Auto) 49.0 Lymph % (Auto) 33.5 [place] % (Auto) 10.5 Eos % (Auto) 6.0 H Baso % (Auto) 0.9 Lymph # (Auto) 2.3 [place] # (Auto) 0.7 Eos # (Auto) 0.4 Baso # (Auto) 0.1 Abs Immat Gran (auto) 0.01 Absolute Neuts (auto) 3.4 Absolute Nucleated RBC 0.000 Nucleated RBC % (auto) 0.0 Sodium 138 Potassium 3.4 Chloride 104 Carbon Dioxide 27 Anion Gap 10 L BUN 5 L Creatinine 0.84 Estim Creat Clear Calc 144.1 Estimated GFR > 60 Random Glucose 88 Calcium 8.8 Magnesium 2.2 Urine Color Yellow Urine Appearance Clear Urine pH 7.5 Ur Specific [place] <= 1.005 Urine Protein Negative Urine Glucose (UA) Negative Urine Ketones Negative Urine Blood Negative Urine Nitrite Negative Ur Leukocyte Esterase Negative Discharge Plan Discharge Anticipated Discharge Date/Time: 03/28/23 17:13 Patient Disposition: Left Against Medical Advice Discharge Diagnosis: alcohol abuse and withdrawal Referrals: Physician,None [Physician] - 1 Week Discharge Medications: Continued omeprazole 40 mg capsule,delayed release(DR/EC) 40 mg PO BID esomeprazole magnesium 40 mg Capsule,Delayed Release(Dr/Ec) 40 mg PO QD-BID PRN (Reason: Heartburn) docusate sodium 100 mg capsule 100 mg PO DAILY PRN (Reason: constipation) Discharge Orders: Discharge Order (Routine); Ordered 03/28/23 Ordered By: Tyron Bhatti Stand Alone Forms: Work/School Release Care Plan Goals: strongly recommend to abstain from alcohol and illicit drug use Health Concerns: anxiety depression Plan of Treatment: follow-up with primary care physician Assessment: as above Discharge Date/Time: 03/28/23 17:05
== END 2023-03-28 17:05 | disposition left against medical advice (07) | DRG 425 ==
LOC: HO.ED 09:24 → HO.EDOVER 12:08 → HO.IMC 13:17
PROVIDERS: Admitting Provider Physician Assistant; Emergency Provider Emergency Medicine; PCP Registered Nurse; Visit Provider Hospitalist
DX: E83.42 Hypomagnesemia (principal); F10.231 Alcohol dependence with withdrawal delirium; E87.20 Acidosis, unspecified; F33.1 Major depressive disorder, recurrent, moderate; F19.10 Other psychoactive substance abuse, uncomplicated; K29.20 Alcoholic gastritis without bleeding; Y90.2 Blood alcohol level of 40-59 mg/100 ml; K21.9 Gastro-esophageal reflux disease without esophagitis; Z87.891 Personal history of nicotine dependence; Z79.899 Other long term (current) drug therapy
CPT/HCPCS: 36415; 80048; 80076; 80307; 81003; 82803; 83690; 83735; 84484; 85025; 93005; 99285; J1650; J2405; J2560; J3411; J3475

== ENCOUNTER → 2023-03-27 11:46 | Outpatient (BNV) | payer OTHER, SELFPAY | PROVIDERS: Admitting Provider Physician Assistant; Emergency Provider Emergency Medicine; Visit Provider Physician Assistant | DX: F33.1 Major depressive disorder, recurrent, moderate (principal); F10.20 Alcohol dependence, uncomplicated | CPT/HCPCS: 99223; 99233; 99239 ==

== ENCOUNTER → 2023-03-27 11:46 | Outpatient (BNV) | payer OTHER, SELFPAY | PROVIDERS: Admitting Provider Physician Assistant; Emergency Provider Emergency Medicine; Visit Provider Social Worker | DX: F10.230 Alcohol dependence with withdrawal, uncomplicated (principal); F33.1 Major depressive disorder, recurrent, moderate | CPT/HCPCS: 99232; 99499 ==

== ENCOUNTER 2023-04-07 20:56 | Inpatient (IN) | payer OTHER, SELFPAY ==
[2023-04-07 20:58] VITALS: BP 138/86; PULSE 130; O2SAT 99
[2023-04-07 21:12] VITALS: BP 127/92; PULSE 125; RESP 22; TEMP 36.6; O2SAT 97; BMI 27.4
--- NOTE | 2023-04-07 23:12 | ECG_ITS ---
Test Reason : CHEST PAIN Blood Pressure : / mmHG Vent. Rate : 100 BPM Atrial Rate : 100 BPM P-R Int : 148 ms QRS Dur : 066 ms QT Int : 372 ms P-R-T Axes : 060 075 064 degrees QTc Int : 479 ms Normal sinus rhythm Septal infarct , age undetermined Abnormal ECG When compared with ECG of 27-MAR-2023 08:07, Heart rate has decreased Referred By: Jose Luis Tadeo Electronically Signed By:EMILY MARCUS
--- NOTE | 2023-04-07 23:15 | ED.ALCOHOL ---
HPI - Alcohol General Chief Complaint: ETOH/Substance Use Stated Complaint: ALCOHOL WITHDRAWL SOB Time Seen by Provider: 04/07/23 23:08 Source: patient Limitations: no limitations History of Present Illness HPI narrative: 32-year-old male presents with acute alcohol withdrawal. Patient's last drink was this morning. Been trying to quit drinking for past few days. However, he is having some hallucinations. Does not do some did cause him to drink. He denies suicidal homicidal ideation. He drinks an unknown quantity on a daily basis for quite some time. He recently quit his job. Symptoms are severe. His current symptoms have gotten worse by not drinking. He feels shaky, tremulous, nauseous, dehydrated. Related Data Home Medications Medication Instructions Recorded Confirmed esomeprazole magnesium 40 mg 40 mg PO QD-BID PRN Heartburn 03/22/23 03/27/23 capsule,delayed release omeprazole 40 mg capsule,delayed 40 mg PO BID 03/22/23 03/27/23 release docusate sodium 100 mg capsule 100 mg PO DAILY PRN constipation 03/27/23 03/27/23 Allergies Allergy/AdvReac Type Severity Reaction Status Date / Time No Known Allergies Allergy Verified 08/11/22 08:14 Review of Systems Review of Systems: CONSTITUTIONAL: Denies weight loss, fever and chills. HEENT: Denies changes in vision and hearing. RESPIRATORY: Denies SOB and cough. CV: Denies palpitations no CP. GI: Denies abdominal pain,+ nausea, -vomiting and diarrhea. : Denies dysuria and urinary frequency. MSK: Denies myalgia and joint pain. SKIN: Denies rash and pruritus. NEUROLOGICAL: Denies headache and syncope. PSYCHIATRIC: + recent changes in mood. + anxiety and depression. All other ROS are negative unless in HPI PMFSH Past Medical History Medical History Anxiety and depression ETOH abuse History of seizure due to alcohol withdrawal Nausea with vomiting Family History Family History Other Diabetes Social History Social History Household Members: Family Housing: Apartment Do you presently have visiting nurse or other home services: No Alcohol intake: current Alcohol intake frequency: 3 or more drinks per day Alcohol type: hard liquor Patient Tobacco Use Status: Former Tobacco user Smoked in Last 30 Days: No Second Hand Smoke Exposure: No Use of substances other than those prescribed or required for medical reasons: Yes Substance Use Type: Marijuana Substance Use Frequency: Daily Last Used Substance: Days (ago) Advance Directives: Yes Advance Directives on File: Yes Advance Directives Date on File: 11/07/22 service: No Current occupational status: employed Physical Exam ED Vital Signs: Vital Signs - 24 hr 04/07/23 21:12 04/08/23 00:00 Temperature 97.8 F 98.1 F Pulse Rate 125 H 107 H Respiratory Rate 22 H 18 Blood Pressure 127/92 H 139/96 H Pulse Oximetry 97 98 Oxygen Delivery Method Room Air Room Air BMI result Body Mass Index 27.4 GEN: Well developed, no acute distress, alert, oriented HEENT: Normocephalic, atraumatic, normal external ears, nose appears normal, no oropharyngeal edema or exudates Eyes: Normal to appearance Neck: Supple, no lymphadenopathy Respiratory: Talks in complete sentences, no respiratory distress, clear to auscultation bilaterally Cardiovascular: Regular rate and rhythm, no murmurs rubs or gallops, tachycardic Abdomen: Soft, nontender, nondistended, no guarding, no rebound Back: No CVA tenderness Extremities: No clubbing cyanosis or edema Neurologic: No focal neurologic deficits, cranial nerves 2-12 intact, strength is 5/5 bilaterally, tremulous Skin: No rash Psych: Visual hallucinations, anxious appearing Course Course Course Narrative: Patient is in acute alcohol withdrawal. Phenobarbital protocol has been ordered. Received 2 mg of Ativan. Heart rate is significantly improved. He appears more comfortable. I have contacted the hospitalist who accepts patient to this service. Medical Decision Making Medical Decision Making MDM Narrative: Patient presents with severe acute alcohol withdrawal. He is tachycardic, clear withdrawing and tremulous. He will receive Ativan 2 mg IV at this time. Will consider phenobarbital as well. Differential diagnosis also includes underlying psychiatric disorder such as schizophrenia, bipolar disorder, depression, anxiety, PTSD. Patient will very likely need hospitalization for severe alcohol withdrawal. Will look for other medical conditions the course of workup. Differential Diagnosis Differential Diagnoses: The differential diagnosis associated with the presentation includes (See above) Admission/Observation Consideration of admission/observation: Escalation of care including admission/observation considered Consult Healthcare Provider Management of the patient was discussed with: Hospitalist Lab Data MDM Lab Attestation statement: I reviewed the patient's lab results. 04/08/23 00:11 04/08/23 00:11 Labs: Lab Results 04/08/23 04/08/23 Range/Units 00:11 00:11 WBC 13.6 H (4.8-10.8) X10*3/uL RBC 5.24 D (4.60-5.80) X10*6/uL Hgb 16.1 D (14.0-18.0) g/dl Hct 45.9 (42.0-52.0) % MCV 87.6 (80.0-98.0) fL MCH 30.7 (27.0-33.0) pg MCHC 35.1 (31.0-36.0) g/dl RDW 12.6 (11.0-16.0) % Plt Count 761 H D (160-400) X10*3/uL MPV 8.4 L (9.4-12.4) fL Immature Gran % (Auto) 0.2 (0.0-0.4) % Neut % (Auto) 73.6 H (45-73) % Lymph % (Auto) 13.2 L (20-40) % [place] % (Auto) 12.0 H (2-11) % Eos % (Auto) 0.3 (0-4) % Baso % (Auto) 0.7 (0-2) % Lymph # (Auto) 1.8 (1.2-4.9) X10*3/uL [place] # (Auto) 1.6 H (0.1-1.2) X10*3/uL Eos # (Auto) 0.0 (0.0-0.4) X10*3/uL Baso # (Auto) 0.1 (0.0-0.2) X10*3/uL Abs Immat Gran (auto) 0.03 (0.00-0.03) X10*3/uL Absolute Neuts (auto) 10.0 H (2.0-8.3) x10*3/uL Absolute Nucleated RBC 0.000 (0.0-0.012) X10*3/uL Nucleated RBC % (auto) 0.0 (0.0-0.2) /100WBC Smear Tech's Comments VERIFIED Sodium 141 (135-145) mmol/L Potassium 3.9 (3.3-5.1) mmol/L Chloride 98 (96-108) mmol/L Carbon Dioxide 24 (22-29) mmol/L Anion Gap 23 H (12-20) BUN < 3 L (9-16) mg/dL Creatinine 0.99 (0.5-1.4) mg/dL Estim Creat Clear Calc 104.5 Estimated GFR > 60 Random Glucose 120 H (60-115) mg/dL Calcium 9.7 D (8.4-10.2) mg/dL Total Bilirubin 0.4 (0.0-1.0) mg/dL AST 82 H (5-37) U/L ALT 119 H (0-40) U/L Alkaline Phosphatase 82 (39-117) U/L Total Protein 7.7 (6.5-8.0) g/dL Albumin 4.1 (3.5-5.0) g/dL Ethyl Alcohol < 10 mg/dL Independent Interpretation I performed an independent interpretation of an: EKG Prescription Management I considered prescription management with: Other (Anxiety lytics) Chronic Conditions Patient?s care impacted by: Other (Alcohol abuse) Medications Administered Generic Name Dose Route Start Last Admin Trade Name Freq PRN Reason Stop Dose Admin Enoxaparin Sodium 40 mg 04/07/23 23:45 04/08/23 00:19 Enoxaparin Sodium 40 Mg/0.4 Ml Syringe SUBCUT Not Given Q24H EL Sodium Chloride 3 ml 04/08/23 00:00 04/08/23 00:20 0.9 % Sodium Chloride Flush 3 Ml Syringe IVFLUSH 3 ml QSHIFT EL Administration Discontinued Medications Generic Name Dose Route Start Last Admin Trade Name Freq PRN Reason Stop Dose Admin Sodium Chloride 1,000 mls @ 999 mls/hr 04/07/23 23:15 04/08/23 00:18 Ns IV 04/08/23 00:15 999 mls/hr .Q1H1M EL Administration Lorazepam 2 mg 04/07/23 23:10 04/08/23 00:18 Lorazepam 2 Mg/Ml Vial IVPUSH 04/07/23 23:11 2 mg ONCE ONE Administration Lorazepam 2 mg 04/07/23 23:50 04/08/23 00:25 Lorazepam 2 Mg/Ml Vial IVPUSH 04/07/23 23:51 Not Given ONCE ONE Critical Care Time Critical Care Time Critical Care Time: Yes Total Critical Care Time: 35 Attestation: Due to a high probability of clinically significant, life threatening deterioration, the patient required my highest level of preparedness to intervene emergently and I personally spent this critical care time directly and personally managing the patient. This critical care time included obtaining a history; examining the patient; pulse oximetry; ordering and review of studies; arranging urgent treatment with development of a management plan; evaluation of patient's response to treatment; frequent reassessment; and, discussions with other providers. This critical care time was performed to assess and manage the high probability of imminent, life-threatening deterioration that could result in multi-organ failure. It was exclusive of separately billable procedures and treating other patients and teaching time. Discharge Plan Discharge Clinical Impression: Alcohol withdrawal syndrome Patient Disposition: Admitted As Inpatient
--- NOTE | 2023-04-07 23:53 | PM.IMHP ---
History of Present Illness Date of Service: 04/07/23 Chief Complaint: Alcohol withdrawal This is a 32-year-old male with pertinent history of alcohol use disorder who presents to the emergency department for concerns of alcohol withdrawal. Patient states he has a history of alcohol withdrawals including alcohol withdrawal seizures. Patient states his last drink was on the morning of the day of presentation. He presents to the ER as he wants to quit. Patient has been having sweating, tremors, nausea and visual hallucinations since his last drink. No fever, chills, chest discomfort, palpitations, shortness of breath, abdominal pain, changes in urinary or bowel habits. In the emergency department, patient was initiated on phenobarb protocol Review of Systems Constitutional: Constitutional: Reports lethargy and Reports malaise Cardiovascular: Cardiovascular: Reports no additional cardiovascular complaints Respiratory: Respiratory: Reports no additional respiratory complaints Gastrointestinal: Gastrointestinal: Reports nausea Genitourinary: Genitourinary: Reports no additional male genitourinary complaints Neurologic: Reports tremor(s) Psychiatric: Psychiatric: Reports anxiety, Reports irritability and Reports visual hallucinations [facility] Medical History Anxiety and depression ETOH abuse History of seizure due to alcohol withdrawal Nausea with vomiting Family History Other Diabetes Social History Household Members: Family Housing: Apartment Do you presently have visiting nurse or other home services: No Alcohol intake: current Alcohol intake frequency: 3 or more drinks per day Alcohol type: hard liquor Patient Tobacco Use Status: Former Tobacco user Smoked in Last 30 Days: No Second Hand Smoke Exposure: No Use of substances other than those prescribed or required for medical reasons: Yes Substance Use Type: Marijuana Substance Use Frequency: Daily Last Used Substance: Days (ago) Advance Directives: Yes Advance Directives on File: Yes Advance Directives Date on File: 11/07/22 service: No Current occupational status: employed Meds Allergies Allergy/AdvReac Type Severity Reaction Status Date / Time No Known Allergies Allergy Verified 08/11/22 08:14 Active Medications: Current Medications Sodium Chloride (Ns) 1,000 mls @ 999 mls/hr IV .Q1H1M EL Stop: 04/08/23 00:15 Lorazepam (Lorazepam 2 Mg/Ml Vial) 2 mg IVPUSH ONCE ONE Stop: 04/07/23 23:51 Pharmacy Consult (Consult Rx Etoh Phenob Im/Po) 1 each MISCELLANE ONCE PRN; Protocol PRN Reason: Consult order Home Medications Medication Instructions Recorded Confirmed Last Taken Type esomeprazole magnesium 40 mg 40 mg PO QD-BID PRN Heartburn 03/22/23 03/27/23 Unknown History capsule,delayed release omeprazole 40 mg capsule,delayed 40 mg PO BID 03/22/23 03/27/23 Unknown History release docusate sodium 100 mg capsule 100 mg PO DAILY PRN constipation 03/27/23 03/27/23 Unknown History Physical Exam Vital Signs and Narrative: Vital Signs: Last Vital Signs Temp 97.8 F 04/07/23 21:12 Pulse 125 H 04/07/23 21:12 Resp 22 H 04/07/23 21:12 BP 127/92 H 04/07/23 21:12 Pulse Ox 97 04/07/23 21:12 O2 Del Method Room Air 04/07/23 21:12 BMI result Body Mass Index 27.4 Middle-aged male lying in bed in no distress Neck supple, no JVD Tachycardic with regular rhythm, S1-S2 heard Regular breath sounds bilaterally, no wheezing or crackles appreciated Abdomen soft nontender, no guarding, no rigidity Patient is awake, alert and oriented to self, place, time and person ; hand tremor seen Psych: Normal mood No pedal edema Results Labs 04/08/23 00:11 04/08/23 00:11 Assessment and Plan (1) Alcohol use disorder: Status: Acute Plan This is a 66-year-old female with pertinent history of mood disorder, mixed hyperlipidemia, osteoporosis who presents to the emergency department for evaluation of chest pressure. #. Alcohol use disorder. Will admit patient and monitor CIWA for concerns of withdrawal. Initiated phenobarb protocol. Initiated thiamine and folic acid. Consulted Addiction Team, appreciate assistance. #. Reactive leukocytosis #. Transaminitis, likely due to alcohol use disorder. Outpatient workup. Med rec pending DVT prophylaxis: Lovenox Full code Time Spent With Patient Time: Total time managing care of this patient today ____ minutes. Quality Stroke Does the patient have a stroke diagnosis?: No VTE Prior VTE?: No VTE Risk Level:: Medical - moderate - high VTE Device Contraindication: Treatment Not Indicated VTE Drug Contraindication: N/A - Med Ordered
[2023-04-08] VITALS: BP 139/96; PULSE 107; RESP 18; TEMP 36.7; O2SAT 98
[2023-04-08] MEDS: 0.9 % Sodium Chloride 1,000 ML 999 ML IV (00:18)
[2023-04-08] MEDS: LORazepam 2 MG/ML VIAL IVPUSH (00:18)
[2023-04-08] MEDS: 0.9 % Sodium Chloride Flush 3 ML SYRINGE IVFLUSH ×4 (00:20→23:16)
[2023-04-08 00:24] LABS: Basophils Absolute Auto 0.1 X10*3/uL (0.0-0.2); Basophils Percent Auto 0.7 % (0-2); Eosinophils Percent Auto 0.3 % (0-4); Hematocrit 45.9 % (42.0-52.0); Hemoglobin 16.1 g/dl (14.0-18.0); Imm Gran Abs Auto 0.03 X10*3/uL (0.00-0.03); Imm Gran Pct Auto 0.2 % (0.0-0.4); Lymphocytes Absolute Auto 1.8 X10*3/uL (1.2-4.9); Lymphocytes Percent Auto 13.2 % (20-40); MANUAL DIFF FLAG SCAN; Mean Corpuscular HGB Conc 35.1 g/dl (31.0-36.0); Mean Corpuscular Hemoglobin 30.7 pg (27.0-33.0); Mean Corpuscular Volume 87.6 fL (80.0-98.0); Mean Platelet Volume 8.4 fL (9.4-12.4); Monocytes Absolute Auto 1.6 X10*3/uL (0.1-1.2); Neutrophils Percent Auto 73.6 % (45-73); Platelet Count 761 X10*3/uL (160-400); Red Blood Count 5.24 X10*6/uL (4.60-5.80); Red Cell Distribution Width 12.6 % (11.0-16.0); SCAN SMEAR FLAG 1; White Blood Count 13.6 X10*3/uL (4.8-10.8)
[2023-04-08 00:27] LABS: SLIDE REVIEW VERIFIED
[2023-04-08 00:37] LABS: Alanine Aminotransferase 119 U/L (0-40); Albumin Level 4.1 g/dL (3.5-5.0); Alkaline Phosphatase 82 U/L (39-117); Anion Gap 23 (12-20); Aspartate Amino Transferase 82 U/L (5-37); Bilirubin Total 0.4 mg/dL (0.0-1.0); Blood Urea Nitrogen < 3 mg/dL (9-16); Calcium 9.7 mg/dL (8.4-10.2); Carbon Dioxide 24 mmol/L (22-29); Chloride 98 mmol/L (96-108); Creatinine Clr Calc Pharmacy 104.5; Estimated Glomerular Filt Rate > 60; Ethanol < 10 mg/dL; Glucose Random 120 mg/dL (60-115); Potassium 3.9 mmol/L (3.3-5.1); Sodium 141 mmol/L (135-145); Total Protein 7.7 g/dL (6.5-8.0)
[2023-04-08] MEDS: PHENobarbitaL sodium 130 MG/ML IM ONCE 272 MG IM (01:09)
[2023-04-08] MEDS: Thiamine HCL 100 MG in 0.9 % Sodium Chloride 100 ML 202 MG IV (01:09)
[2023-04-08 01:36] LABS: Appearance Urine Clear; Color Urine Dark Yellow; Glucose Urine UA Negative (Negative); Leukocyte Esterase Urine Trace (Negative); Nitrite Urine Negative (Negative); UMIC TRIGGER UACC YES; Urine Blood Negative (Negative); Urine Ketones 15 mg/dL (Negative); Urine Protein 30 (1+) mg/dL (Neg-Trace)
[2023-04-08 01:50] LABS: Amphetamine Screen Urine Not Detected (Not Detect); Barbiturates, Urine POSITIVE (Not Detect); Benzodiazepines Screen Urine Not Detected (Not Detect); Cannabinoid Screen Urine POSITIVE (Not Detect); Cocaine Screen Urine POSITIVE (Not Detect); Fentanyl, urine Not Detected (Not Detect); Opiate Screen Urine Not Detected (Not Detect); Phencyclidine Screen Urine Not Detected (Not Detect)
[2023-04-08 01:53] LABS: Bacteria Urine None Seen (None Seen); Hyaline Casts Urine 0-2 /LPF (0-2); Squamous Epithelial Cell Urine 0-2 /HPF (0-2); WBC Urine 0-5 /HPF (0-5)
[2023-04-08 03:16] VITALS: BMI 28.9
[2023-04-08 03:22] VITALS: BP 142/94; PULSE 98; RESP 18; TEMP 36.6; O2SAT 100
[2023-04-08] MEDS: PHENobarbitaL sodium 130 MG/ML VIAL IM Q3Hx2 204 MG IM ×2 (03:47→06:46)
[2023-04-08 07:12] LABS: Basophils Absolute Auto 0.1 X10*3/uL (0.0-0.2); Basophils Percent Auto 0.6 % (0-2); Eosinophils Absolute Auto 0.1 X10*3/uL (0.0-0.4); Eosinophils Percent Auto 0.3 % (0-4); Hematocrit 40.7 % (42.0-52.0); Hemoglobin 14.1 g/dl (14.0-18.0); Imm Gran Abs Auto 0.06 X10*3/uL (0.00-0.03); Imm Gran Pct Auto 0.4 % (0.0-0.4); Lymphocytes Absolute Auto 2.3 X10*3/uL (1.2-4.9); Lymphocytes Percent Auto 14.7 % (20-40); MANUAL DIFF FLAG SCAN; Mean Corpuscular HGB Conc 34.6 g/dl (31.0-36.0); Mean Corpuscular Hemoglobin 31.1 pg (27.0-33.0); Mean Corpuscular Volume 89.6 fL (80.0-98.0); Mean Platelet Volume 8.7 fL (9.4-12.4); Monocytes Percent Auto 12.7 % (2-11); Neutrophils Absolute Auto 11.1 x10*3/uL (2.0-8.3); Neutrophils Percent Auto 71.3 % (45-73); Platelet Count 669 X10*3/uL (160-400); Red Blood Count 4.54 X10*6/uL (4.60-5.80); Red Cell Distribution Width 12.8 % (11.0-16.0); SCAN SMEAR FLAG 1; White Blood Count 15.6 X10*3/uL (4.8-10.8)
[2023-04-08 07:36] VITALS: BP 127/86; PULSE 62; RESP 18; TEMP 36; O2SAT 98
[2023-04-08] MEDS: Acetaminophen 325 MG TABLET 650 MG PO (07:44)
[2023-04-08] MEDS: Folic Acid 1 MG TABLET PO (07:44)
[2023-04-08] MEDS: Thiamine HCL 100 MG TABLET PO (07:44)
[2023-04-08 07:46] LABS: Anion Gap 18 (12-20); Blood Urea Nitrogen 6 mg/dL (9-16); Calcium 8.9 mg/dL (8.4-10.2); Carbon Dioxide 26 mmol/L (22-29); Chloride 98 mmol/L (96-108); Creatinine Clr Calc Pharmacy 134.5; Estimated Glomerular Filt Rate > 60; Glucose Random 100 mg/dL (60-115); Magnesium 1.6 mg/dL (1.6-2.6); Phosphorus 3.6 mg/dL (2.7-4.5); Potassium 3.7 mmol/L (3.3-5.1); Sodium 138 mmol/L (135-145)
--- NOTE | 2023-04-08 08:45 | PHA.MEDREC ---
Pharmacy Consult ? Medication Reconciliation Pharmacy has completed the medication reconciliation. spoke with patient to confirm medications.
--- NOTE | 2023-04-08 11:14 | MHC.RECOVRN ---
Addendum entered by Yoselyn Gresham RN 04/08/23 14:30: Pt asleep at this time, resources left at bedside. Original Note: T/w met with pt to discuss recovery goals. Pt reports he has been drinking daily, hard alcohol, unsure how much. Pt reports he has been in contact with [facility] and saw them on this past Monday. He has planned with them to get the Vivitrol injection as part of his recovery plan. Pt disclosed that there is DCF involvement, and that they are advocating that he get into recovery. Pt states it's not worth it in regards to his drinking, reports he feels as though his body and mental health cannot take it anymore and he is willing to take all of the appropriate steps to stop drinking. Pt reports he is open to meeting with a psych professional to discuss the possibility of antidepressants. 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 Pt appears drowsy at this time, appropriate in conversation and answering questions appropriately. No tremor noted, no diaphoresis, pt reporting he feels ok at this time, denying withdrawal symptoms.
[2023-04-08 11:49] VITALS: BP 113/63; PULSE 66; RESP 18; TEMP 36.3; O2SAT 97
--- NOTE | 2023-04-08 12:24 | HO.PM.IMPN ---
Subjective Subjective Date of Service: 04/08/23 Interval History: No signs of withdrawal overnight. CIWA scores 0. Seen by addiction Medicine. . . Recommend psychiatric evaluation Review of Systems Denies chest pain Denies shortness of breath Denies nausea vomiting diarrhea Denies Fever chills Physical Exam Vital Signs: Vital Signs: Last Vital Signs Temp 97.4 F 04/08/23 11:49 Pulse 66 04/08/23 11:49 Resp 18 04/08/23 11:49 BP 113/63 04/08/23 11:49 Pulse Ox 97 04/08/23 11:49 O2 Del Method Room Air 04/08/23 11:49 BMI result Body Mass Index 28.9 Const: Other: Awake alert no acute distress Resp: Other: Clear to auscultation bilaterally no rales rhonchi or wheezes Cardio: Other: No S4; positive S1-S2; no S3 murmurs rubs or gallops GI: Other: Soft nontender nondistended normoactive bowel sounds Neuro: Other: Cranial nerves 2-12 grossly intact as tested. Motor is 5/5 all extremities sensation is intact cognition is appropriate. Gait steady Extrem: Other: No edema bilaterally Objective Data Active Medications Acetaminophen (Acetaminophen 325 Mg Tablet) 650 mg PO Q6H PRN PRN Reason: Pain, Mild (Pain Scale 1-3) Last Admin: 04/08/23 07:44 Dose: 650 mg Documented By: LESLIE Enoxaparin Sodium (Enoxaparin Sodium 40 Mg/0.4 Ml Syringe) 40 mg SUBCUT Q24H [facility] Last Admin: 04/08/23 00:19 Dose: Not Given Documented By: ALMA Non-Admin Reason: Patient Refused Folic Acid (Folic Acid 1 Mg Tablet) 1 mg PO DAILY [facility] Last Admin: 04/08/23 07:44 Dose: 1 mg Documented By: LESLIE Melatonin (Melatonin 3 Mg Tablet) 6 mg PO BEDTIME PRN PRN Reason: Insomnia Ondansetron HCl (Ondansetron Hcl 4 Mg/2 Ml Vial) 4 mg IVPUSH Q8H PRN PRN Reason: Nausea and Vomiting Pharmacy Consult (Consult Rx Etoh Phenob Im/Po) 1 each MISCELLANE ONCE PRN; Protocol PRN Reason: Consult order Phenobarbital (Phenobarbital 15 Mg Tablet) 45 mg PO BID [facility]; Protocol Stop: 04/10/23 21:01 Phenobarbital (Phenobarbital 15 Mg Tablet) 15 mg PO BID [facility]; Protocol Stop: 04/12/23 21:01 Phenobarbital (Phenobarbital 15 Mg Tablet) 15 mg PO DAILY [facility]; Protocol Stop: 04/14/23 09:01 Sodium Chloride (0.9 % Sodium Chloride Flush 3 Ml Syringe) 3 ml IVFLUSH QSHIFT [facility] Last Admin: 04/08/23 07:46 Dose: 3 ml Documented By: LESLIE Thiamine HCl (Thiamine Hcl 100 Mg Tablet) 100 mg PO DAILY [facility] Last Admin: 04/08/23 07:44 Dose: 100 mg Documented By: LESLIE Labs 04/08/23 06:05 04/08/23 06:05 Labs: Laboratory Results - last 24 hr 04/08/23 04/08/23 04/08/23 00:11 00:11 01:27 MCV 87.6 MCH 30.7 MCHC 35.1 RDW 12.6 Plt Count 761 H D MPV 8.4 L Immature Gran % (Auto) 0.2 Neut % (Auto) 73.6 H Lymph % (Auto) 13.2 L [place] % (Auto) 12.0 H Eos % (Auto) 0.3 Baso % (Auto) 0.7 Lymph # (Auto) 1.8 [place] # (Auto) 1.6 H Eos # (Auto) 0.0 Baso # (Auto) 0.1 Abs Immat Gran (auto) 0.03 Absolute Neuts (auto) 10.0 H Absolute Nucleated RBC 0.000 Nucleated RBC % (auto) 0.0 Smear Tech's Comments VERIFIED Anion Gap 23 H Estim Creat Clear Calc 104.5 Estimated GFR > 60 Random Glucose 120 H Calcium 9.7 D Phosphorus Magnesium Total Bilirubin 0.4 AST 82 H ALT 119 H Alkaline Phosphatase 82 Total Protein 7.7 Albumin 4.1 Urine Color Dark Yellow Urine Appearance Clear Urine pH 7.0 Ur Specific [place] 1.020 Urine Protein 30 (1+) H Urine Glucose (UA) Negative Urine Ketones 15 Urine Blood Negative Urine Nitrite Negative Ur Leukocyte Esterase Trace H Urine RBC 3-5 H Urine WBC 0-5 Ur Squamous Epith Cells 0-2 Urine Bacteria None Seen Hyaline Casts 0-2 Urine Opiates Screen Urine Fentanyl Screen Ur Barbiturates Screen Ur Phencyclidine Scrn Ur Amphetamines Screen U Benzodiazepines Scrn Urine Cocaine Screen U Marijuana (THC) Screen Ethyl Alcohol < 10 04/08/23 04/08/23 04/08/23 01:27 06:05 06:05 MCV 89.6 MCH 31.1 MCHC 34.6 RDW 12.8 Plt Count 669 H MPV 8.7 L Immature Gran % (Auto) 0.4 Neut % (Auto) 71.3 Lymph % (Auto) 14.7 L [place] % (Auto) 12.7 H Eos % (Auto) 0.3 Baso % (Auto) 0.6 Lymph # (Auto) 2.3 [place] # (Auto) 2.0 H Eos # (Auto) 0.1 Baso # (Auto) 0.1 Abs Immat Gran (auto) 0.06 H Absolute Neuts (auto) 11.1 H Absolute Nucleated RBC 0.000 Nucleated RBC % (auto) 0.0 Smear Tech's Comments Anion Gap 18 Estim Creat Clear Calc 134.5 Estimated GFR > 60 Random Glucose 100 Calcium 8.9 D Phosphorus 3.6 Magnesium 1.6 Total Bilirubin AST ALT Alkaline Phosphatase Total Protein Albumin Urine Color Urine Appearance Urine pH Ur Specific [place] Urine Protein Urine Glucose (UA) Urine Ketones Urine Blood Urine Nitrite Ur Leukocyte Esterase Urine RBC Urine WBC Ur Squamous Epith Cells Urine Bacteria Hyaline Casts Urine Opiates Screen Not Detected Urine Fentanyl Screen Not Detected Ur Barbiturates Screen POSITIVE H Ur Phencyclidine Scrn Not Detected Ur Amphetamines Screen Not Detected U Benzodiazepines Scrn Not Detected Urine Cocaine Screen POSITIVE H U Marijuana (THC) Screen POSITIVE H Ethyl Alcohol Assessment and Plan (1) Alcohol use disorder, moderate, dependence: Status: Acute (2) Elevated transaminase measurement: Status: Acute Plan 32-year-old male with known history of alcohol abuse and multiple admissions for same presents with withdrawal symptoms. Started on phenobarb protocol.. . CIWA 0 this a.m. 1.Alcohol use disorder -continue to monitor on CIWA scale/seizure precautions -seen by addiction Medicine (appreciated).. . Will consult psych at their request 2.Transaminitis -mild increase overnight (hepatocellular pattern) -follow LFTs daily -if increase in a.m. will order ultrasound Lovenox Full code Will require ongoing hospitalization to continue with phenobarb protocol for alcohol withdrawal Time Spent With Patient Time: Total time managing care of this patient today ____ minutes. Quality Stroke Does the patient have a stroke diagnosis?: No VTE Prior VTE?: No VTE Risk Level:: Medical - moderate - high VTE Device Contraindication: Treatment Not Indicated VTE Drug Contraindication: N/A - Med Ordered
--- NOTE | 2023-04-08 14:28 | PM.PSYDC ---
DS: Providers Provider Date of admission: 04/08/23 10:11 Primary care physician: Unknown Physician Consults: 04/07/23 23:51 Addiction Medicine Routine Consulting Provider: Addiction Covering Reason for consultation: alcohol use disorder 04/08/23 12:23 Consult to Psychiatry Routine Consulting Provider: Psych Covering Reason for consultation: Substance abuse with depression Has provider been notified: No DS: Diagnosis Discharge Diagnosis (1) Alcohol use disorder, moderate, dependence: Status: Acute (2) Elevated transaminase measurement: Status: Acute DS: Medications Discharge Medications Home Medications: Home Medications Medication Instructions Recorded Confirmed esomeprazole magnesium 40 mg 40 mg PO QD-BID PRN Heartburn 03/22/23 04/08/23 capsule,delayed release omeprazole 40 mg capsule,delayed 40 mg PO BID 03/22/23 04/08/23 release docusate sodium 100 mg capsule 100 mg PO DAILY PRN constipation 03/27/23 04/08/23 Data Data Completed and Pending Completed studies during hospitalization [Text1]: 04/08/23 04/08/23 04/08/23 00:11 00:11 01:27 WBC 13.6 H RBC 5.24 D Hgb 16.1 D Hct 45.9 MCV 87.6 MCH 30.7 MCHC 35.1 RDW 12.6 Plt Count 761 H D MPV 8.4 L Immature Gran % (Auto) 0.2 Neut % (Auto) 73.6 H Lymph % (Auto) 13.2 L [place] % (Auto) 12.0 H Eos % (Auto) 0.3 Baso % (Auto) 0.7 Lymph # (Auto) 1.8 [place] # (Auto) 1.6 H Eos # (Auto) 0.0 Baso # (Auto) 0.1 Abs Immat Gran (auto) 0.03 Absolute Neuts (auto) 10.0 H Absolute Nucleated RBC 0.000 Nucleated RBC % (auto) 0.0 Smear Tech's Comments VERIFIED Sodium 141 Potassium 3.9 Chloride 98 Carbon Dioxide 24 Anion Gap 23 H BUN < 3 L Creatinine 0.99 Estim Creat Clear Calc 104.5 Estimated GFR > 60 Random Glucose 120 H Calcium 9.7 D Phosphorus Magnesium Total Bilirubin 0.4 AST 82 H ALT 119 H Alkaline Phosphatase 82 Total Protein 7.7 Albumin 4.1 Urine Color Dark Yellow Urine Appearance Clear Urine pH 7.0 Ur Specific [place] 1.020 Urine Protein 30 (1+) H Urine Glucose (UA) Negative Urine Ketones 15 Urine Blood Negative Urine Nitrite Negative Ur Leukocyte Esterase Trace H Urine RBC 3-5 H Urine WBC 0-5 Ur Squamous Epith Cells 0-2 Urine Bacteria None Seen Hyaline Casts 0-2 Urine Opiates Screen Urine Fentanyl Screen Ur Barbiturates Screen Ur Phencyclidine Scrn Ur Amphetamines Screen U Benzodiazepines Scrn Urine Cocaine Screen U Marijuana (THC) Screen Ethyl Alcohol < 10 04/08/23 04/08/23 04/08/23 01:27 06:05 06:05 WBC 15.6 H RBC 4.54 L Hgb 14.1 Hct 40.7 L MCV 89.6 MCH 31.1 MCHC 34.6 RDW 12.8 Plt Count 669 H MPV 8.7 L Immature Gran % (Auto) 0.4 Neut % (Auto) 71.3 Lymph % (Auto) 14.7 L [place] % (Auto) 12.7 H Eos % (Auto) 0.3 Baso % (Auto) 0.6 Lymph # (Auto) 2.3 [place] # (Auto) 2.0 H Eos # (Auto) 0.1 Baso # (Auto) 0.1 Abs Immat Gran (auto) 0.06 H Absolute Neuts (auto) 11.1 H Absolute Nucleated RBC 0.000 Nucleated RBC % (auto) 0.0 Smear Tech's Comments Sodium 138 Potassium 3.7 Chloride 98 Carbon Dioxide 26 Anion Gap 18 BUN 6 L Creatinine 0.85 Estim Creat Clear Calc 134.5 Estimated GFR > 60 Random Glucose 100 Calcium 8.9 D Phosphorus 3.6 Magnesium 1.6 Total Bilirubin AST ALT Alkaline Phosphatase Total Protein Albumin Urine Color Urine Appearance Urine pH Ur Specific [place] Urine Protein Urine Glucose (UA) Urine Ketones Urine Blood Urine Nitrite Ur Leukocyte Esterase Urine RBC Urine WBC Ur Squamous Epith Cells Urine Bacteria Hyaline Casts Urine Opiates Screen Not Detected Urine Fentanyl Screen Not Detected Ur Barbiturates Screen POSITIVE H Ur Phencyclidine Scrn Not Detected Ur Amphetamines Screen Not Detected U Benzodiazepines Scrn Not Detected Urine Cocaine Screen POSITIVE H U Marijuana (THC) Screen POSITIVE H Ethyl Alcohol DS: Summary Time Spent with Patient Time attestation: Total time managing care of this patient today ____ minutes. Discharge Plan Discharge Referrals: Physician,Unknown J [Primary Care Provider] - 1 Week Discharge Medications: No Action omeprazole 40 mg capsule,delayed release(DR/EC) 40 mg PO BID esomeprazole magnesium 40 mg Capsule,Delayed Release(Dr/Ec) 40 mg PO QD-BID PRN (Reason: Heartburn) docusate sodium 100 mg capsule 100 mg PO DAILY PRN (Reason: constipation)
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
[2023-04-08 15:29] VITALS: BP 127/70; PULSE 72; RESP 18; TEMP 36.3; O2SAT 98
[2023-04-08 20:00] VITALS: BP 129/63; PULSE 89; RESP 20; TEMP 36.5
[2023-04-08] MEDS: Melatonin 3 MG TABLET 6 MG PO (23:16)
[2023-04-09] VITALS: BP 131/65; PULSE 90; RESP 20; TEMP 36.1; O2SAT 99
[2023-04-09 04:00] VITALS: BP 122/86; PULSE 58; RESP 20; TEMP 36.2; O2SAT 100
[2023-04-09 06:01] LABS: MANUAL DIFF FLAG NO
[2023-04-09 06:23] LABS: Alanine Aminotransferase 73 U/L (0-40); Albumin Level 3.3 g/dL (3.5-5.0); Alkaline Phosphatase 85 U/L (39-117); Anion Gap 12 (12-20); Aspartate Amino Transferase 65 U/L (5-37); Bilirubin Total 0.5 mg/dL (0.0-1.0); Blood Urea Nitrogen 11 mg/dL (9-16); Calcium 9.1 mg/dL (8.4-10.2); Carbon Dioxide 31 mmol/L (22-29); Chloride 98 mmol/L (96-108); Creatinine Clr Calc Pharmacy 125.6; Estimated Glomerular Filt Rate > 60; Glucose Fasting 88 mg/dL (60-99); Potassium 3.2 mmol/L (3.3-5.1); Sodium 138 mmol/L (135-145)
[2023-04-09 06:41] LABS: Basophils Absolute Auto 0.1 X10*3/uL (0.0-0.2); Basophils Percent Auto 0.6 % (0-2); Eosinophils Absolute Auto 0.2 X10*3/uL (0.0-0.4); Eosinophils Percent Auto 2.1 % (0-4); Hematocrit 39.3 % (42.0-52.0); Hemoglobin 13.5 g/dl (14.0-18.0); Imm Gran Abs Auto 0.02 X10*3/uL (0.00-0.03); Imm Gran Pct Auto 0.2 % (0.0-0.4); Lymphocytes Percent Auto 36.7 % (20-40); Mean Corpuscular HGB Conc 34.4 g/dl (31.0-36.0); Mean Corpuscular Hemoglobin 31.2 pg (27.0-33.0); Mean Corpuscular Volume 90.8 fL (80.0-98.0); Mean Platelet Volume 8.9 fL (9.4-12.4); Monocytes Absolute Auto 0.8 X10*3/uL (0.1-1.2); Monocytes Percent Auto 9.6 % (2-11); Neutrophils Absolute Auto 4.1 x10*3/uL (2.0-8.3); Neutrophils Percent Auto 50.8 % (45-73); Platelet Count 639 X10*3/uL (160-400); Red Blood Count 4.33 X10*6/uL (4.60-5.80); Red Cell Distribution Width 12.3 % (11.0-16.0); White Blood Count 8.1 X10*3/uL (4.8-10.8)
[2023-04-09 07:16] VITALS: BP 109/69; PULSE 54; RESP 16; TEMP 36.4; O2SAT 97
[2023-04-09] MEDS: Folic Acid 1 MG TABLET PO (08:39)
[2023-04-09] MEDS: Thiamine HCL 100 MG TABLET PO (08:39)
[2023-04-09] MEDS: PHENobarbitaL 15 MG TABLET 45 MG PO (08:40)
[2023-04-09] MEDS: Potassium Chloride Packet 20 MEQ PACKET 40 MEQ PO (08:42)
[2023-04-09] MEDS: 0.9 % Sodium Chloride Flush 3 ML SYRINGE IVFLUSH (08:42)
--- NOTE | 2023-04-09 10:32 | MHC.CM.PN ---
Addendum entered by Ayesha Hinton 04/09/23 11:46: PT WILL DC HOME TODAY WITH NO NEW SERVICES PT TO ARRANGE TRANSPORT Original Note: PT REPORTS HE LIVES WITH HIS AND 4YO DAUGHTER HOWEVER THEY HAVE BEEN STAYING WITH HER PARENT SINCE HIS RELAPSED PT REPORTS AFTER HIS LAST ADMISSION, DCF CAME AND HE NOW WANTS TO MAKE SURE HE DOES EVERYTHING RIGHT PT REPORTS HE IS ACTIVE WITH [facility] AND PLANS TO GET THE VIVITROL INJECTION SOON HE IS CLEARED TO PT DENIES HAVING ANY OTHER SERVICES OR DME PT HAS A HCP ON FILE HIS PCP IS JAIME PURVIS DCP: HOME WITH RESUMPTION OF [facility] SERVICES PT TO ARRANGE TRANSPORT
--- NOTE | 2023-04-09 11:02 | P.DS_ITS ---
DS: Providers Provider Date of Service: 04/09/23 Date of admission: 04/08/23 10:11 Date of discharge: 04/09/23 Primary care physician: Unknown Physician Consults: 04/07/23 23:51 Addiction Medicine Routine Consulting Provider: Addiction Covering Reason for consultation: alcohol use disorder 04/08/23 12:23 Consult to Psychiatry Routine Consulting Provider: Psych Covering Reason for consultation: Substance abuse with depression Has provider been notified: No DS: Diagnosis Discharge Diagnosis (1) Alcohol use disorder, moderate, dependence: Status: Acute (2) MDD (major depressive disorder), recurrent episode, moderate: Status: Acute DS: Summary Hospital Course Hospital Course: 32-year-old male with pertinent history of alcohol use disorder who presents to the emergency department for concerns of alcohol withdrawal.? Patient states he has a history of alcohol withdrawals including alcohol withdrawal seizures.? Patient states his last drink was on the morning of the day of presentation.? He presents to the ER as he wants to quit.? Patient has been having sweating, tremors, nausea and visual hallucinations since his last drink.? No fever, chills, chest discomfort, palpitations, shortness of breath, abdominal pain, changes in urinary or bowel habits. Second admit for similar problem Hospital course Admitted to general medical floor and phenobarb protocol. CIWA persistently 0; including day of discharge. Did complain of some depression without self-harm features. Seen by Psychiatry who recommended Celexa 10 mg daily for 1 week and then Celexa 20 mg daily thereafter. Patient wishes to consider naltrexone. . . Is established with [facility] and will discuss with them upon discharge. At this point time he is medically acceptable for discharge Time Spent with Patient Time attestation: Total time managing care of this patient today ____ minutes. Discharge coordination time: Greater than 30 minutes Quality: Safe Use of Opioids Does Pt have an Active Cancer Diagnosis on the Problem List?: No Quality: Stroke Does the patient have a stroke diagnosis?: No Physical Exam Vital Signs: Vital Signs: Last Vital Signs Temp 97.6 F 04/09/23 07:16 Pulse 54 04/09/23 07:16 Resp 16 04/09/23 07:16 BP 109/69 04/09/23 07:16 Pulse Ox 97 04/09/23 07:16 O2 Del Method Room Air 09/03/23 07:16 BMI result Body Mass Index 28.9 Const: Other: Awake alert no acute distress Resp: Other: Clear to auscultation bilaterally no rales rhonchi or wheezes Cardio: Other: No S4; positive S1-S2; no S3 murmurs rubs or gallops GI: Other: Soft nontender nondistended normoactive bowel sounds Neuro: Other: Cranial nerves 2-12 grossly intact as tested. Motor is 5/5 all extremities sensation is intact cognition is appropriate. Gait steady Extrem: Other: No edema bilaterally DS: Data Data Completed and Pending Completed studies during hospitalization [Text1]: Procedures Detoxification Services for Substance Abuse Treatment (03/27/23) Labs on day of discharge: Laboratory Results - last 24 hr 04/09/23 04/09/23 05:27 05:27 WBC 8.1 RBC 4.33 L Hgb 13.5 L Hct 39.3 L MCV 90.8 MCH 31.2 MCHC 34.4 RDW 12.3 Plt Count 639 H MPV 8.9 L Immature Gran % (Auto) 0.2 Neut % (Auto) 50.8 Lymph % (Auto) 36.7 [place] % (Auto) 9.6 Eos % (Auto) 2.1 Baso % (Auto) 0.6 Lymph # (Auto) 3.0 [place] # (Auto) 0.8 Eos # (Auto) 0.2 Baso # (Auto) 0.1 Abs Immat Gran (auto) 0.02 Absolute Neuts (auto) 4.1 Absolute Nucleated RBC 0.000 Nucleated RBC % (auto) 0.0 Sodium 138 Potassium 3.2 L Chloride 98 Carbon Dioxide 31 H Anion Gap 12 BUN 11 Creatinine 0.91 Estim Creat Clear Calc 125.6 Estimated GFR > 60 Fasting Glucose 88 Calcium 9.1 Total Bilirubin 0.5 AST 65 H ALT 73 H Alkaline Phosphatase 85 Total Protein 6.0 L Albumin 3.3 L Discharge Plan Discharge Anticipated Discharge Date/Time: 04/09/23 10:58 Patient Disposition: Home, Self-Care Discharge Diagnosis: Alcohol Use disorder Referrals: Physician,Unknown J [Primary Care Provider] - 1 Week Discharge Medications: New citalopram [Celexa] 10 mg tablet 10 mg PO DAILY Qty: 7 0RF citalopram [Celexa] 20 mg tablet 20 mg PO DAILY Qty: 30 1RF Continued omeprazole 40 mg capsule,delayed release(/EC) 40 mg PO BID esomeprazole magnesium 40 mg Capsule,Delayed Release(Dr/Ec) 40 mg PO QD-BID PRN (Reason: Heartburn) docusate sodium 100 mg capsule 100 mg PO DAILY PRN (Reason: constipation) Discharge Orders: Discharge Order (Routine); Ordered 04/09/23 Ordered By: Alphonse Murphy Diet: Advance to usual diet Activity on Discharge: As tolerated Stand Alone Forms: Patient Portal Discharge page Care Plan Goals: Two scripts for Celexa sent in. Take 10 mg daily for 1 week and then fill 20 mg daily. Follow-up with kody Jasmine. Health Concerns: Discussed naltrexone with kody Jasmine Plan of Treatment: Avoid alcohol Assessment: See discharge summary
== END 2023-04-09 11:53 | disposition home or self-care (01) | DRG 751 ==
LOC: HO.ED 23:19 → HO.EDOVER 04-08 00:59 → HO.S3 04-08 01:26
PROVIDERS: Admitting Provider Student in an Organized Health Care Education/Training Program; Emergency Provider Emergency Medicine; PCP Nurse Practitioner Family; Visit Provider Hospitalist
DX: F33.1 Major depressive disorder, recurrent, moderate (principal); F10.139 Alcohol abuse with withdrawal, unspecified; Z79.899 Other long term (current) drug therapy; Z87.891 Personal history of nicotine dependence
CPT/HCPCS: 36415; 80048; 80053; 80307; 81001; 83735; 84100; 85025; 93005; 99285; J2060; J2560; J3411

== ENCOUNTER → 2023-04-07 21:41 | Outpatient (BNV) | payer OTHER, SELFPAY | PROVIDERS: Emergency Provider Emergency Medicine; Visit Provider Student in an Organized Health Care Education/Training Program | DX: F10.20 Alcohol dependence, uncomplicated (principal); F33.1 Major depressive disorder, recurrent, moderate | CPT/HCPCS: 99222; 99233; 99239 ==

== ENCOUNTER → 2023-04-08 10:11 | Outpatient (BNV) | payer OTHER, SELFPAY | PROVIDERS: Admitting Provider Student in an Organized Health Care Education/Training Program; Emergency Provider Emergency Medicine; Visit Provider Psychiatry & Neurology Psychiatry | DX: F33.1 Major depressive disorder, recurrent, moderate (principal); F10.20 Alcohol dependence, uncomplicated | CPT/HCPCS: 99222 ==

== ENCOUNTER 2023-05-09 15:28 | Inpatient (IN) | payer OTHER, SELFPAY ==
--- NOTE | 2023-05-09 15:41 | ED.GENADULT ---
HPI - General Adult General Chief complaint: ETOH/Substance Use Stated complaint: ?Seizure/Alcohol Withdrawal Time Seen by Provider: 05/09/23 15:57 Source: patient Mode of arrival: ambulatory History of Present Illness HPI narrative: 32-year-old male who presents with relapsing from being sober of alcohol approximately 1 week ago. Patient states that since that time he has been drinking heavily and has been unable to stop. He states his last drink was this morning and that he has been nauseous and vomiting in only tolerating alcohol for the past couple of days. Cutting the triage note he woke up this morning on the floor unknown whether not he had a seizure and reports hallucinations. Related Data Home Medications Medication Instructions Recorded Confirmed omeprazole 40 mg capsule,delayed 40 mg PO BID 03/22/23 05/09/23 release cyanocobalamin (vitamin B-12) 1,000 mcg PO DAILY 05/09/23 05/09/23 1,000 mcg tablet folic acid 1 mg tablet 1 mg PO DAILY 05/09/23 05/09/23 Allergies Allergy/AdvReac Type Severity Reaction Status Date / Time No Known Allergies Allergy Verified 05/09/23 15:43 Review of Systems Review of Systems: Pertinent positives and negatives as stated in HPI PMFSH Past Medical History Source: nursing notes reviewed Medical History Alcohol use disorder, moderate, dependence MDD (major depressive disorder), recurrent episode, moderate Nausea with vomiting Alcohol use disorder Anxiety and depression History of seizure due to alcohol withdrawal ETOH abuse Family History Family History Other Diabetes Social History Social History Household Members: Family Housing: Apartment Do you presently have visiting nurse or other home services: No Alcohol intake: current Alcohol intake frequency: 3 or more drinks per day Alcohol type: hard liquor Patient Tobacco Use Status: Former Tobacco user Smoked in Last 30 Days: No Second Hand Smoke Exposure: No Use of substances other than those prescribed or required for medical reasons: Yes Substance Use Type: Marijuana Advance Directives: Yes Advance Directives on File: Yes Advance Directives Date on File: 11/07/22 service: No Current occupational status: employed Physical Exam ED Vital Signs: Vital Signs - 24 hr 05/09/23 15:43 05/09/23 16:31 Temperature 99.3 F Pulse Rate 168 H 110 H Respiratory Rate 22 H 20 Blood Pressure 181/94 H 125/97 H Pulse Oximetry 98 96 Oxygen Delivery Method Room Air Room Air BMI result Body Mass Index 26.6 VITAL SIGNS: Reviewed. GENERAL: Well developed, well nourished, in no acute distress. HEAD: Normocephalic/atraumatic EYES: PERRLA, EOMI EARS: Ext canals without abnormality NOSE: Nares patent bilateral OROPHARYNX: no oral lesions noted, posterior pharynx clear NECK: Supple, no adenopathy LUNGS: Normal breath sounds. No adventitious sounds or accessory muscle use. SpO2<98> CARDIOVASCULAR: Regular rate and rhythm without noted murmurs ABDOMEN: Soft, non-tender, non-distended with bowel sounds. MUSCULOSKELETAL: No tenderness, deformities, or effusions noted on gross inspection. EXTREMITIES: No cyanosis, clubbing or edema. SKIN: Inspection of the skin reveals no rashes NEUROLOGIC: Alert and oriented x 4. Strength and sensation to light touch were grossly intact x 4. PSYCH: Patient is tearful Course Course Course Narrative: This is an RME: Additional HPI, ROS, PE not included below will be deferred to primary provider. 32 y o male presenting for alcohol withdrawal symptoms. Drinks approximately 24oz beer/hour, last drink earlier this morning. States he may have had a possible seizure this morning, was walking to the bathroom then blacked out and woke up on the floor. Endorsing +AH, +VH, feeling unsteady and unwell, actively tremulous and tachycardic in triage. Actively vomiting as well. Plan -- labs, seizure precautions Medications Administered Generic Name Dose Route Start Last Admin Trade Name Freq PRN Reason Stop Dose Admin Potassium Chloride 10 meq in 100 mls @ 100 mls/hr 05/09/23 17:00 05/09/23 17:21 Potassium Chloride/H20 IV 05/09/23 18:59 100 mls/hr Q1H EL Administration Discontinued Medications Generic Name Dose Route Start Last Admin Trade Name Freq PRN Reason Stop Dose Admin Sodium Chloride 1,000 mls @ 999 mls/hr 05/09/23 16:15 05/09/23 17:23 Ns IV 05/09/23 17:15 Infused .Q1H1M EL Infusion Lorazepam 2 mg 05/09/23 15:47 05/09/23 16:04 Lorazepam 2 Mg/Ml Vial IVPUSH 05/09/23 15:48 2 mg ONCE ONE Administration Ondansetron HCl 4 mg 05/09/23 15:47 05/09/23 16:03 Ondansetron Hcl 4 Mg/2 Ml Vial IVPUSH 05/09/23 15:48 4 mg ONCE ONE Administration Phenobarbital Sodium 317.2 mg 05/09/23 16:30 05/09/23 16:32 Phenobarbital Sodium 130 Mg/Ml Im Once IM 05/09/23 16:31 317.2 mg ONCE ONE Administration Protocol Medical Decision Making Medical Decision Making MDM Narrative: 32-year-old male with history and clinical presentation, DDX: Alcohol withdrawal, pancreatitis, dehydration. I have reviewed all investigations, hematologic indices demonstrate a stress leukocytosis, chronically elevated platelet count but no left shift or anemia. Chemistry indices significant for low potassium of 2.9 which was repleted with 20 mEq via IV, no JOSESITO and chronic transaminemia with an undetectable troponin level. Lipase is within normal limits. Patient was placed on a phenobarb protocol. Toxicology is positive for marijuana and ETOH -259. 1728: I discussed the case with inpatient hospitalist who accepts admission. 1755: Nursing staff concerned regarding seizure, on evaluation patient is independently moving his hands up to his face while in a flexed position, he was given 2 mg of Ativan. He is responsive to painful stimuli and is maintaining his airway. Differential Diagnosis Differential Diagnoses: The differential diagnosis associated with the presentation includes Please see the discussion above Admission/Observation Consideration of admission/observation: Escalation of care including admission/observation considered Please see the discussion above Consult Healthcare Provider Management of the patient was discussed with: Hospitalist Please see the discussion above Lab Data [facility] Lab Attestation statement: I reviewed the patient's lab results. Please see the discussion above 05/09/23 16:11 05/09/23 16:11 Labs: Lab Results 05/09/23 05/09/23 Range/Units 16:11 17:11 WBC 12.1 H (4.8-10.8) X10*3/uL RBC 5.43 D (4.60-5.80) X10*6/uL Hgb 16.8 D (14.0-18.0) g/dl Hct 48.2 D (42.0-52.0) % MCV 88.8 (80.0-98.0) fL MCH 30.9 (27.0-33.0) pg MCHC 34.9 (31.0-36.0) g/dl RDW 12.2 (11.0-16.0) % Plt Count 563 H (160-400) X10*3/uL MPV 9.0 L (9.4-12.4) fL Immature Gran % (Auto) 0.2 (0.0-0.4) % Neut % (Auto) 58.4 (45-73) % Lymph % (Auto) 31.4 (20-40) % [place] % (Auto) 9.3 (2-11) % Eos % (Auto) 0.2 (0-4) % Baso % (Auto) 0.5 (0-2) % Lymph # (Auto) 3.8 (1.2-4.9) X10*3/uL [place] # (Auto) 1.1 (0.1-1.2) X10*3/uL Eos # (Auto) 0.0 (0.0-0.4) X10*3/uL Baso # (Auto) 0.1 (0.0-0.2) X10*3/uL Abs Immat Gran (auto) 0.03 (0.00-0.03) X10*3/uL Absolute Neuts (auto) 7.1 (2.0-8.3) x10*3/uL Absolute Nucleated RBC 0.000 (0.0-0.012) X10*3/uL Nucleated RBC % (auto) 0.0 (0.0-0.2) /100WBC Sodium 141 (135-145) mmol/L Potassium 2.9 L (3.3-5.1) mmol/L Chloride 97 (96-108) mmol/L Carbon Dioxide 25 (22-29) mmol/L Anion Gap 22 H (12-20) BUN < 3 L (9-16) mg/dL Creatinine 0.97 (0.5-1.4) mg/dL Estim Creat Clear Calc 103.1 Estimated GFR > 60 Random Glucose 130 H (60-115) mg/dL Calcium 9.3 (8.4-10.2) mg/dL Magnesium 2.2 (1.6-2.6) mg/dL Total Bilirubin 0.5 (0.0-1.0) mg/dL AST 57 H (5-37) U/L ALT 63 H (0-40) U/L Alkaline Phosphatase 72 (39-117) U/L Troponin I High Sens < 2.7 (<3.5-35.0) ng/L Total Protein 7.8 (6.5-8.0) g/dL Albumin 4.5 (3.5-5.0) g/dL Lipase 12 (8-78) U/L Urine Opiates Screen Not Detected (Not Detect) Urine Fentanyl Screen Not Detected (Not Detect) Ur Barbiturates Screen Not Detected (Not Detect) Ur Phencyclidine Scrn Not Detected (Not Detect) Ur Amphetamines Screen Not Detected (Not Detect) U Benzodiazepines Scrn Not Detected (Not Detect) Urine Cocaine Screen Not Detected (Not Detect) U Marijuana (THC) Screen POSITIVE H (Not Detect) Ethyl Alcohol 259 mg/dL Independent Interpretation I performed an independent interpretation of an: EKG Interpretation: Normal sinus rhythm, HR -95, no STEMI, DC/QRS/QTC is within normal limits. External Record Review External record reviewed: Outpatient record, Prior outpatient labs and Prior outpatient radiology Critical Care Time Critical Care Time Critical Care Time: Yes Total Critical Care Time: 45 Attestation: I personally attest to this time spent taking care of the patient. Discharge Plan Discharge Clinical Impression: Alcohol withdrawal syndrome, Hypokalemia Patient Disposition: Admitted As Inpatient
[2023-05-09 15:43] VITALS: BP 181/94; PULSE 168; RESP 22; TEMP 37.4; O2SAT 98; BMI 26.6
--- NOTE | 2023-05-09 15:44 | ECG_ITS ---
Test Reason : etoh Blood Pressure : / mmHG Vent. Rate : 095 BPM Atrial Rate : 095 BPM P-R Int : 158 ms QRS Dur : 078 ms QT Int : 346 ms P-R-T Axes : 060 056 048 degrees QTc Int : 434 ms Normal sinus rhythm with sinus arrhythmia Normal ECG When compared with ECG of 07-APR-2023 23:41, Criteria for Septal infarct are no longer Present Referred By: Nieves Molina Electronically Signed By:EMILY MARCUS
[2023-05-09] MEDS: ondansetron HCL 4 MG/2 ML VIAL IVPUSH ×2 (16:03→18:01)
[2023-05-09] MEDS: 0.9 % Sodium Chloride 1,000 ML 999 ML IV (16:04)
[2023-05-09] MEDS: LORazepam 2 MG/ML VIAL IVPUSH ×2 (16:04→17:57)
--- NOTE | 2023-05-09 16:15 | PC.NURSE ---
pt is alert and oriented, skin appropriate for ethnicity, pt is trembling all over when arrived to bed 9, sinus tachy on the monitor ranging from 110-120's, pt is a chronic alcoholic but has been sober for the last 21 days but had a relapse about a week ago and has been binge drinking since then, last drink was this morning. pt reports nausea and vomiting/states he has been having visual hallucinations of pink elephants and and hearing voices and whistling noises in his ears. pt does have hx of alcohol withdrawal seizures in the past
[2023-05-09 16:16] LABS: MANUAL DIFF FLAG NO
[2023-05-09 16:31] VITALS: BP 125/97; PULSE 110; RESP 20; O2SAT 96
[2023-05-09] MEDS: PHENobarbitaL sodium 130 MG/ML IM ONCE 317.2 MG IM (16:32)
[2023-05-09 16:33] LABS: Basophils Absolute Auto 0.1 X10*3/uL (0.0-0.2); Basophils Percent Auto 0.5 % (0-2); Eosinophils Percent Auto 0.2 % (0-4); Hematocrit 48.2 % (42.0-52.0); Hemoglobin 16.8 g/dl (14.0-18.0); Imm Gran Abs Auto 0.03 X10*3/uL (0.00-0.03); Imm Gran Pct Auto 0.2 % (0.0-0.4); Lipase 12 U/L (8-78); Lymphocytes Absolute Auto 3.8 X10*3/uL (1.2-4.9); Lymphocytes Percent Auto 31.4 % (20-40); Mean Corpuscular HGB Conc 34.9 g/dl (31.0-36.0); Mean Corpuscular Hemoglobin 30.9 pg (27.0-33.0); Mean Corpuscular Volume 88.8 fL (80.0-98.0); Monocytes Absolute Auto 1.1 X10*3/uL (0.1-1.2); Monocytes Percent Auto 9.3 % (2-11); Neutrophils Absolute Auto 7.1 x10*3/uL (2.0-8.3); Neutrophils Percent Auto 58.4 % (45-73); Platelet Count 563 X10*3/uL (160-400); Red Blood Count 5.43 X10*6/uL (4.60-5.80); Red Cell Distribution Width 12.2 % (11.0-16.0); White Blood Count 12.1 X10*3/uL (4.8-10.8)
[2023-05-09 16:37] LABS: Alanine Aminotransferase 63 U/L (0-40); Albumin Level 4.5 g/dL (3.5-5.0); Alkaline Phosphatase 72 U/L (39-117); Anion Gap 22 (12-20); Aspartate Amino Transferase 57 U/L (5-37); Bilirubin Total 0.5 mg/dL (0.0-1.0); Blood Urea Nitrogen < 3 mg/dL (9-16); Calcium 9.3 mg/dL (8.4-10.2); Carbon Dioxide 25 mmol/L (22-29); Chloride 97 mmol/L (96-108); Creatinine Clr Calc Pharmacy 103.1; Estimated Glomerular Filt Rate > 60; Ethanol 259 mg/dL; Glucose Random 130 mg/dL (60-115); Magnesium 2.2 mg/dL (1.6-2.6); Potassium 2.9 mmol/L (3.3-5.1); Sodium 141 mmol/L (135-145); Total Protein 7.8 g/dL (6.5-8.0)
[2023-05-09 16:49] LABS: Troponin-I High Sensitivity < 2.7 ng/L (<3.5-35.0)
--- NOTE | 2023-05-09 16:51 | PHA.MEDREC ---
Pharmacy Consult ? Medication Reconciliation Pharmacy has completed the medication reconciliation. Patient reported medications. Patient reported taking lorazepam every day however per PDMP patient has not filled lorazepam since 04/2022 therefore did not include in list. Patient mentioned that his PCP wanted him to start metformin but nothing was ever prescribed. Patient's wanted patient to take chlorodiazepoxide however he did not feel comfortable taking unless he came to the ER first due to his last drink being recently, patient last filled chlordiazepoxide in 06/2022. Quiana Hardy, YoniD
[2023-05-09] MEDS: Potassium Chloride/H20 10 MEQ/100 ML PIGGYBACK 100 MEQ IV ×2 (17:21→18:44)
[2023-05-09 17:31] LABS: Amphetamine Screen Urine Not Detected (Not Detect); Barbiturates, Urine Not Detected (Not Detect); Benzodiazepines Screen Urine Not Detected (Not Detect); Cannabinoid Screen Urine POSITIVE (Not Detect); Cocaine Screen Urine Not Detected (Not Detect); Fentanyl, urine Not Detected (Not Detect); Opiate Screen Urine Not Detected (Not Detect); Phencyclidine Screen Urine Not Detected (Not Detect)
--- NOTE | 2023-05-09 17:51 | P.HPHOSP_ITS ---
History of Present Illness Date of Service: 05/09/23 Attending physician on admission: Adam Velazquez Chief Complaint: Alcohol withdrawal Pt is a 32-year-old male with a PMH significant for?alcohol use disorder with a hx of withdrawal seizures who presents to the ED for concerns of alcohol withdrawal. Patient states he quit drinking approximately 1 month ago after being discharged from this hospital for alcohol withdrawal, but states that he relapsed 1 week ago. Reports drinking ?constantly? since then, essentially drinking until he passes out then waking up and drinking more. Patient began experiencing episodes of vomiting 4 days ago. Reports subsequent epigastric pain and notes has occasionally been vomiting up blood. Last 8 4 days prior on Monday. He also claims intermittent diarrhea that has been ?greasy and black?. Endorses auditory and visual hallucinations: Says he has been seeing ?pink elephants? and been hearing [employer] as if it has been playing through a fan. Patient also reports an episode of loss of consciousness early this morning when he went up to go to the bathroom and then woke up to find himself on the bathroom floor. Patient denies any urinary symptoms: No dysuria or polyuria. In the ED the patient was afebrile, but tachycardic up to 168, tachypneic up to 22, and hypertensive up to 181/94, satting at 98% on RA. Labs were significant for WB of 12.1 with stable H&H, potassium 2.9, BUN <3, AST 57, ALT 63. Magnesium 2.2. Troponin negative. Tox screen positive for marijuana, ethyl alcohol 259. CXR unremarkable. CT of head showing no evidence of recent intracranial hemorrhage or acute infarct. CT of cervical spine found no acute fracture or subluxation of the cervical spine. EKG demonstrated normal sinus rhythm without evidence of ST elevations or depressions. Pt was treated with ondansetron, lorazepam, IVF, and started on phenobarb protocol. Pt will be admitted to the hospital for treatment and monitoring of acute alcohol withdrawal. Review of Systems 2 Review of Systems: Auditory and visual hallucinations Upper extremity tremors Nausea and vomiting Diarrhea Hematemesis, black stool PMFSH Medical History Alcohol use disorder, moderate, dependence MDD (major depressive disorder), recurrent episode, moderate Nausea with vomiting Alcohol use disorder Anxiety and depression History of seizure due to alcohol withdrawal ETOH abuse Family History Other Diabetes Social History Household Members: Family Housing: Apartment Do you presently have visiting nurse or other home services: No Alcohol intake: current Alcohol intake frequency: 3 or more drinks per day Alcohol type: hard liquor Patient Tobacco Use Status: Former Tobacco user Smoked in Last 30 Days: No Second Hand Smoke Exposure: No Use of substances other than those prescribed or required for medical reasons: Yes Substance Use Type: Marijuana Advance Directives: Yes Advance Directives on File: Yes Advance Directives Date on File: 11/07/22 service: No Current occupational status: employed Meds Allergies Allergy/AdvReac Type Severity Reaction Status Date / Time No Known Allergies Allergy Verified 05/09/23 15:43 Active Medications: Current Medications Potassium Chloride (Potassium Chloride/H20) 10 meq in 100 mls @ 100 mls/hr IV Q1H EL Stop: 05/09/23 18:59 Last Admin: 05/09/23 17:21 Dose: 100 mls/hr Pharmacy Consult (Consult Rx Etoh Phenob Im/Po) 1 each MISCELLANE ONCE PRN; Protocol PRN Reason: Consult order Phenobarbital (Phenobarbital 15 Mg Tablet) 45 mg PO BID EL; Protocol Stop: 05/11/23 21:01 Phenobarbital (Phenobarbital 15 Mg Tablet) 15 mg PO BID EL; Protocol Stop: 05/13/23 21:01 Phenobarbital (Phenobarbital 15 Mg Tablet) 15 mg PO DAILY EL; Protocol Stop: 05/15/23 09:01 Phenobarbital Sodium (Phenobarbital Sodium 130 Mg/Ml Vial Im Q3hx2) 237.9 mg IM Q3H EL; Protocol Stop: 05/09/23 22:31 Home Medications Medication Instructions Recorded Confirmed Last Taken Type omeprazole 40 mg capsule,delayed 40 mg PO BID 03/22/23 05/09/23 05/08/23 History release cyanocobalamin (vitamin B-12) 1,000 mcg PO DAILY 05/09/23 05/09/23 05/08/23 History 1,000 mcg tablet folic acid 1 mg tablet 1 mg PO DAILY 05/09/23 05/09/23 05/08/23 History Physical Exam 2 Vital Signs and Narrative: Vital Signs: Last Vital Signs Temp 99.3 F 05/09/23 15:43 Pulse 110 H 05/09/23 16:31 Resp 20 05/09/23 16:31 BP 125/97 H 05/09/23 16:31 Pulse Ox 96 05/09/23 16:31 O2 Del Method Room Air 05/09/23 16:31 BMI result Body Mass Index 26.6 Constitutional: Alert, somnolent but arousable. Cooperative, answering questions appropriately. In no acute distress. Mental Status: Oriented to person, place and time. Eyes: Pupils are equal, round, and reactive to light. Ear, Nose, and Throat: Oropharynx clear, mucous membranes moist. Ears and nose without deformities. Trachea midline. Respiratory: Clear to auscultation bilaterally. No wheezing, rales, or rhonchi. Cardiovascular: S1, S2 regular. No murmurs, rubs, or gallops. Gastrointestinal: Abdomen soft, non-tender, non-distended. Normal bowel sounds. Neurologic: Cranial nerves II-XII are grossly intact bilaterally. No focal neurological deficits. Moves all extremities spontaneously. Mild upper extremity tremors noted. Skin: Warm, dry. Musculoskeletal: No cyanosis or clubbing. Extremities: No edema. Results Labs 05/09/23 16:11 05/09/23 16:11 Labs: Laboratory Results - last 24 hr 05/09/23 05/09/23 16:11 17:11 MCV 88.8 MCH 30.9 MCHC 34.9 RDW 12.2 Plt Count 563 H MPV 9.0 L Immature Gran % (Auto) 0.2 Neut % (Auto) 58.4 Lymph % (Auto) 31.4 [place] % (Auto) 9.3 Eos % (Auto) 0.2 Baso % (Auto) 0.5 Lymph # (Auto) 3.8 [place] # (Auto) 1.1 Eos # (Auto) 0.0 Baso # (Auto) 0.1 Abs Immat Gran (auto) 0.03 Absolute Neuts (auto) 7.1 Absolute Nucleated RBC 0.000 Nucleated RBC % (auto) 0.0 Anion Gap 22 H Estim Creat Clear Calc 103.1 Estimated GFR > 60 Random Glucose 130 H Calcium 9.3 Magnesium 2.2 Total Bilirubin 0.5 AST 57 H ALT 63 H Alkaline Phosphatase 72 Total Protein 7.8 Albumin 4.5 Lipase 12 Urine Opiates Screen Not Detected Urine Fentanyl Screen Not Detected Ur Barbiturates Screen Not Detected Ur Phencyclidine Scrn Not Detected Ur Amphetamines Screen Not Detected U Benzodiazepines Scrn Not Detected Urine Cocaine Screen Not Detected U Marijuana (THC) Screen POSITIVE H Ethyl Alcohol 259 Assessment and Plan (1) Alcohol withdrawal syndrome: Status: Acute (2) Hypokalemia: Status: Acute Plan Pt is a 32-year-old male with a PMH significant for?alcohol use disorder with a hx of withdrawal seizures who presents to the ED for concerns of alcohol withdrawal. Pt will be admitted to the hospital for treatment and monitoring of acute alcohol withdrawal. Acute alcohol withdrawal Mild shakiness, reports hallucinations of pink elephants and distant music Received IVF, ondansetron, lorazepam, phenobarb protocol, and potassium chloride in the ED Continue Phenobarb protocol Daily multivitamin, folic acid, Thiamine IV Protonix Follow lytes, Mag, BMP IVF: lactated ringers CIWA scale Seizure protocols Addiction medicine consult Monitor on telemetry Hypokalemia Patient's potassium 2.9 The patient received potassium chloride 10 mEq x2 doses Patient placed on IVF: Lactated Ringer's Follow BMP Question of hemetemasis/melena Patient reports vomiting blood and having black, greasy stools x4 days Initial H&H 16.8/48.2 Will recheck H&H this evening Follow CBC Leukocytosis WBC 12.1 at time of presentation Likely reactionary, not due to sepsis, no source of infection Tachycardia and tachypnea secondary to alcohol withdrawal, not sepsis Transaminitis Likely secondary to alcohol use disorder Alcohol cessation advised Full Code Attending:?Dr. Velazquez DVT Prophylaxis: Lovenox Pt will require a hospitalization of at least two nights for treatment of acute alcohol withdrawal with auditory and visual hallucinations. Patient will be closely monitored and treated with phenobarb protocol. Time Spent With Patient Time: Total time managing care of this patient today ____ minutes. Quality Stroke Does the patient have a stroke diagnosis?: No VTE Prior VTE?: No VTE Risk Level:: Medical - moderate - high VTE Device Contraindication: Treatment Not Indicated VTE Drug Contraindication: N/A - Med Ordered
--- NOTE | 2023-05-09 18:00 | PC.NURSE ---
this rn walked in to the pt's room and multiple staff members at bedside, another rn states that the pt was having a seizure- pt is currently having some visible tremor activity, but at the same time pt is talking saying he does not know what is happening and that he does not feel good. pt was given ativan 2 mg iv
--- NOTE | 2023-05-09 18:41 | PC.NURSE ---
report given to [facility] rn
[2023-05-09 18:44] VITALS: BP 118/72; PULSE 98
[2023-05-09 19:11] VITALS: BP 144/95; PULSE 95; RESP 16; TEMP 37.1; O2SAT 98
[2023-05-09] MEDS: PHENobarbitaL sodium 130 MG/ML VIAL IM Q3Hx2 237.9 MG IM (20:51)
[2023-05-09 21:10] LABS: Hematocrit 40.3 % (42.0-52.0); Hemoglobin 14.2 g/dl (14.0-18.0)
[2023-05-09 23:55] VITALS: BMI 29.6
[2023-05-09 23:57] VITALS: BP 129/86; PULSE 98; RESP 18; TEMP 37.4; O2SAT 95
[2023-05-10] MEDS: ondansetron HCL 4 MG/2 ML VIAL IVPUSH (00:05)
[2023-05-10] MEDS: PHENobarbitaL sodium 130 MG/ML VIAL IM Q3Hx2 237.9 MG IM (00:07)
[2023-05-10] MEDS: Lactated Ringers 1,000 ML 100 ML IVCONT ×3 (00:10→17:02)
[2023-05-10] MEDS: 0.9 % Sodium Chloride Flush 3 ML SYRINGE IVFLUSH ×4 (00:10→20:12)
[2023-05-10 04:00] VITALS: BP 130/77; PULSE 87; RESP 16; TEMP 36.4; O2SAT 94
[2023-05-10 06:23] LABS: Anion Gap 12 (12-20); Blood Urea Nitrogen 5 mg/dL (9-16); Calcium 8.4 mg/dL (8.4-10.2); Carbon Dioxide 28 mmol/L (22-29); Chloride 99 mmol/L (96-108); Creatinine Clr Calc Pharmacy 130.1; Estimated Glomerular Filt Rate > 60; Glucose Random 95 mg/dL (60-115); Potassium 3.1 mmol/L (3.3-5.1); Sodium 136 mmol/L (135-145)
[2023-05-10 06:53] LABS: Hematocrit 38.1 % (42.0-52.0); Hemoglobin 13.1 g/dl (14.0-18.0); Mean Corpuscular HGB Conc 34.4 g/dl (31.0-36.0); Mean Corpuscular Volume 90.3 fL (80.0-98.0); Mean Platelet Volume 9.5 fL (9.4-12.4); Platelet Count 431 X10*3/uL (160-400); Red Blood Count 4.22 X10*6/uL (4.60-5.80); White Blood Count 13.5 X10*3/uL (4.8-10.8)
[2023-05-10 07:16] VITALS: BP 117/77; PULSE 77; RESP 20; TEMP 37.2; O2SAT 95
[2023-05-10] MEDS: Pantoprazole Sodium 40 MG/10 ML VIAL IVPUSH (08:16)
[2023-05-10] MEDS: Potassium Chloride/H20 10 MEQ/100 ML PIGGYBACK 100 MEQ IV ×4 (08:18→14:25)
[2023-05-10] MEDS: Cyanocobalamin (Vitamin B-12) 1,000 MCG TABLET 1000 MCG PO (08:20)
[2023-05-10] MEDS: Multivitamin TABLET 1 TAB PO (08:20)
[2023-05-10] MEDS: PHENobarbitaL 15 MG TABLET 45 MG PO ×2 (08:20→20:11)
[2023-05-10] MEDS: Enoxaparin Sodium 40 MG/0.4 ML SYRINGE SUBCUT (08:21)
[2023-05-10] MEDS: PHENobarbitaL sodium 130 MG/ML VIAL IM (09:41)
[2023-05-10] MEDS: Folic Acid 1 MG in 0.9 % Sodium Chloride 50 ML 100.4 MG IV (10:39)
[2023-05-10 11:00] VITALS: BP 122/71; PULSE 77; RESP 20; TEMP 37.1; O2SAT 97
[2023-05-10] MEDS: Thiamine HCL 100 MG in 0.9 % Sodium Chloride 100 ML 202 MG IV (11:28)
--- NOTE | 2023-05-10 11:52 | MHC.CM.PN ---
PT ADMITTED FOR ETOH WITHDRAWAL, +HALLUCINATIONS, CURRENTLY MEDICATED/SLEEPING. THIS CM SPOKE WITH FOR CM ASSESSMENT. PER , PT LIVES AT HOME WITH /YOUNG DAUGHTER, INDEPENDENT, NO SERVICES ADMITTED 04/09/23 ALSO FOR ETOH WITHDRAWAL, AND PLAN WAS TO F/U WITH [facility] - UNSURE IF THIS HAPPENED HCP: SHAY, ON FILE PCP: JAIME PURVIS MD AT [facility] DP: RETURN HOME, NO SERVICES, CAN TRANSPORT. IS REQUESTING ASSISTANCE ESTABLISHING WITH A THERAPIST IF PT IS AGREEABLE. CM WILL FOLLOW.
--- NOTE | 2023-05-10 15:20 | P.PNIM_ITS ---
Subjective Subjective Date of Service: 05/10/23 Interval History: alcohol withdrawal,hypokalemia Review of Systems still tremer and restless denies any hallucinations no fevers Physical Exam 2 Vital Signs: Vital Signs: Last Vital Signs Temp 98.7 F 05/10/23 11:00 Pulse 77 05/10/23 11:00 Resp 20 05/10/23 11:00 BP 122/71 05/10/23 11:00 Pulse Ox 97 05/10/23 11:00 O2 Del Method Room Air 05/10/23 11:00 BMI result Body Mass Index 29.6 Appearance: Alert.? Oriented X3.?tremer/restlessness? cvs: rrr, [id number] , no murmur res: clear to auscultation ,no rhonchii or wheezing abd: no rebound or guarding ,nt, bs present. ext pulses present , no cyanosis. neuro: axo3 , nonfocal. To Objective Data Active Medications Cyanocobalamin (Cyanocobalamin (Vitamin B-12) 1,000 Mcg Tablet) 1,000 mcg PO DAILY [facility] Last Admin: 05/10/23 08:20 Dose: 1,000 mcg Documented By: JASMIN Enoxaparin Sodium (Enoxaparin Sodium 40 Mg/0.4 Ml Syringe) 40 mg SUBCUT DAILY [facility] Last Admin: 05/10/23 08:21 Dose: 40 mg Documented By: JASMIN Thiamine HCl 100 mg/ Sodium (Chloride) 101 mls @ 202 mls/hr IV DAILY [facility] Last Infusion: 05/10/23 12:00 Dose: Infused Documented By: JASMIN Folic Acid 1 mg/ Sodium (Chloride) 50.2 mls @ 100.4 mls/hr IV DAILY [facility] Last Infusion: 05/10/23 11:41 Dose: Infused Documented By: JASMIN Lactated Ringer's (Lr) 1,000 mls @ 100 mls/hr IVCONT .Q10H [facility] Last Admin: 05/10/23 08:21 Dose: 100 mls/hr Documented By: JASMIN Lidocaine (Lidocaine 4 % Patch Adh..Patch) 1 patch TRANSDERMA DAILY [facility]; Protocol Last Admin: 05/10/23 08:21 Dose: Not Given Documented By: JASMIN Non-Admin Reason: Patient Refused Multivitamins/Vitamin C (Multivitamin Tablet) 1 tab PO DAILY [facility] Last Admin: 05/10/23 08:20 Dose: 1 tab Documented By: JASMIN Ondansetron HCl (Ondansetron Hcl 4 Mg/2 Ml Vial) 4 mg IVPUSH Q6H PRN PRN Reason: nausea Last Admin: 05/10/23 00:05 Dose: 4 mg Documented By: EDU Pantoprazole Sodium (Pantoprazole Sodium 40 Mg/10 Ml Vial) 40 mg IVPUSH DAILY [facility] Last Admin: 05/10/23 08:16 Dose: 40 mg Documented By: JASMIN Pharmacy Consult (Consult Rx Etoh Phenob Im/Po) 1 each MISCELLANE ONCE PRN; Protocol PRN Reason: Consult order Phenobarbital (Phenobarbital 15 Mg Tablet) 45 mg PO BID [facility]; Protocol Stop: 05/11/23 21:01 Last Admin: 05/10/23 08:20 Dose: 45 mg Documented By: JASMIN Phenobarbital (Phenobarbital 15 Mg Tablet) 15 mg PO BID [facility]; Protocol Stop: 05/13/23 21:01 Phenobarbital (Phenobarbital 15 Mg Tablet) 15 mg PO DAILY [facility]; Protocol Stop: 05/15/23 09:01 Sodium Chloride (0.9 % Sodium Chloride Flush 3 Ml Syringe) [facility] Last Admin: 05/10/23 08:18 Dose: 3 ml Documented By: JASMIN Labs 05/10/23 05:52 05/10/23 05:52 Labs: Laboratory Results - last 24 hr 05/09/23 05/09/23 05/10/23 16:11 17:11 05:52 MCV 88.8 90.3 MCH 30.9 31.0 MCHC 34.9 34.4 RDW 12.2 12.0 Plt Count 563 H 431 H MPV 9.0 L 9.5 Immature Gran % (Auto) 0.2 Neut % (Auto) 58.4 Lymph % (Auto) 31.4 [place] % (Auto) 9.3 Eos % (Auto) 0.2 Baso % (Auto) 0.5 Lymph # (Auto) 3.8 [place] # (Auto) 1.1 Eos # (Auto) 0.0 Baso # (Auto) 0.1 Abs Immat Gran (auto) 0.03 Absolute Neuts (auto) 7.1 Absolute Nucleated RBC 0.000 0.000 Nucleated RBC % (auto) 0.0 0.0 Anion Gap 22 H 12 Estim Creat Clear Calc 103.1 130.1 Estimated GFR > 60 > 60 Random Glucose 130 H 95 Calcium 9.3 8.4 D Magnesium 2.2 Total Bilirubin 0.5 AST 57 H ALT 63 H Alkaline Phosphatase 72 Total Protein 7.8 Albumin 4.5 Lipase 12 Urine Opiates Screen Not Detected Urine Fentanyl Screen Not Detected Ur Barbiturates Screen Not Detected Ur Phencyclidine Scrn Not Detected Ur Amphetamines Screen Not Detected U Benzodiazepines Scrn Not Detected Urine Cocaine Screen Not Detected U Marijuana (THC) Screen POSITIVE H Ethyl Alcohol 259 Assessment and Plan (1) Hypokalemia: Status: Acute (2) Alcohol withdrawal syndrome: Status: Acute Plan 32-year-old male with a PMH significant for?alcohol use disorder with a hx of withdrawal seizures who presents to the ED for concerns of alcohol withdrawal. Pt will be admitted to the hospital for treatment and monitoring of acute alcohol withdrawal. Acute alcohol withdrawal Mild shakiness, reports hallucinations of pink elephants and distant music Received IVF, ondansetron, lorazepam, phenobarb protocol, and potassium chloride in the ED Continue Phenobarb protocol,given an extra dose of phenobarbital,Daily multivitamin, folic acid, Thiamine,IV Protonix ciwa is 9. IVF: lactated ringers,CIWA scale,Follow lytes, Mag, BMP Seizure protocols Addiction medicine consult Monitor on telemetry Hypokalemia Patient's potassium 3.1 The patient received potassium chloride 10 mEq x4 doses Patient placed on IVF: Lactated Ringer's Follow BMP Question of hemetemasis/melena-possible william sofia Patient reports vomiting blood and having black, greasy stools x4 days H&Hstable ,continue ppi. Follow CBC Leukocytosis WBC 13.5 Likely reactionary, not due to sepsis, no source of infection Tachycardia and tachypnea secondary to alcohol withdrawal, not sepsis Transaminitis Likely secondary to alcohol use disorder Alcohol cessation advised ongoing hospitalization need : alcohol withdrawal : on Phenobarb protocol,hypokalemia -need potassium replecements ,need renal function/electrolytes . Time Spent With Patient Time: Total time managing care of this patient today ____ minutes. Quality Stroke Does the patient have a stroke diagnosis?: No VTE Prior VTE?: No VTE Risk Level:: Medical - moderate - high VTE Device Contraindication: Treatment Not Indicated VTE Drug Contraindication: N/A - Med Ordered
[2023-05-10 15:28] VITALS: BP 133/77; PULSE 66; RESP 14; TEMP 36.5; O2SAT 98
[2023-05-10 19:24] VITALS: BP 131/76; PULSE 66; RESP 14; TEMP 37.2; O2SAT 96
[2023-05-10] MEDS: Melatonin 3 MG TABLET 6 MG PO (21:56)
[2023-05-11] VITALS: BP 125/70; PULSE 58; RESP 18; TEMP 36.8; O2SAT 98
[2023-05-11] MEDS: Lactated Ringers 1,000 ML 100 ML IVCONT (02:37)
[2023-05-11 04:00] VITALS: BP 132/88; PULSE 52; RESP 18; TEMP 37.1; O2SAT 96
[2023-05-11 07:12] VITALS: BP 124/69; PULSE 54; RESP 20; TEMP 36.6; O2SAT 97
--- NOTE | 2023-05-11 08:42 | HO.ADDICT_ITS ---
History of Present Illness Chief Complaint: Alcohol Withdrawal, hypokalemia HPI Past Psychiatric History: Inpatient: denies OP: none Past med trials: Lexapro (limited therapeutic efficacy) Diagnostics Vital Signs (24Hr): Vital Signs - 24 hr 05/10/23 11:00 05/10/23 15:28 05/10/23 19:24 Temperature 98.7 F 97.7 F 98.9 F Pulse Rate 77 66 66 Respiratory Rate 20 14 14 Blood Pressure 122/71 133/77 131/76 Pulse Oximetry 97 98 96 Oxygen Delivery Method Room Air Room Air Room Air 05/11/23 00:00 05/11/23 04:00 05/11/23 07:12 Temperature 98.2 F 98.7 F 97.8 F Pulse Rate 58 52 54 Respiratory Rate 18 18 20 Blood Pressure 125/70 132/88 124/69 Pulse Oximetry 98 96 97 Oxygen Delivery Method Room Air Room Air Room Air BMI result Body Mass Index 29.6 Labs 05/10/23 05:52 05/11/23 08:46 Labs: Laboratory Results - last 48 hr 05/09/23 05/09/23 05/09/23 16:11 17:11 20:50 WBC 12.1 H RBC 5.43 D Hgb 16.8 D 14.2 Hct 48.2 D 40.3 L MCV 88.8 MCH 30.9 MCHC 34.9 RDW 12.2 Plt Count 563 H MPV 9.0 L Immature Gran % (Auto) 0.2 Neut % (Auto) 58.4 Lymph % (Auto) 31.4 [place] % (Auto) 9.3 Eos % (Auto) 0.2 Baso % (Auto) 0.5 Lymph # (Auto) 3.8 [place] # (Auto) 1.1 Eos # (Auto) 0.0 Baso # (Auto) 0.1 Abs Immat Gran (auto) 0.03 Absolute Neuts (auto) 7.1 Absolute Nucleated RBC 0.000 Nucleated RBC % (auto) 0.0 Sodium 141 Potassium 2.9 L Chloride 97 Carbon Dioxide 25 Anion Gap 22 H BUN < 3 L Creatinine 0.97 Estim Creat Clear Calc 103.1 Estimated GFR > 60 Random Glucose 130 H Calcium 9.3 Magnesium 2.2 Total Bilirubin 0.5 AST 57 H ALT 63 H Alkaline Phosphatase 72 Troponin I High Sens < 2.7 Total Protein 7.8 Albumin 4.5 Lipase 12 Urine Opiates Screen Not Detected Urine Fentanyl Screen Not Detected Ur Barbiturates Screen Not Detected Ur Phencyclidine Scrn Not Detected Ur Amphetamines Screen Not Detected U Benzodiazepines Scrn Not Detected Urine Cocaine Screen Not Detected U Marijuana (THC) Screen POSITIVE H Ethyl Alcohol 259 05/10/23 05:52 WBC 13.5 H RBC 4.22 L D Hgb 13.1 L Hct 38.1 L MCV 90.3 MCH 31.0 MCHC 34.4 RDW 12.0 Plt Count 431 H MPV 9.5 Immature Gran % (Auto) Neut % (Auto) Lymph % (Auto) [place] % (Auto) Eos % (Auto) Baso % (Auto) Lymph # (Auto) [place] # (Auto) Eos # (Auto) Baso # (Auto) Abs Immat Gran (auto) Absolute Neuts (auto) Absolute Nucleated RBC 0.000 Nucleated RBC % (auto) 0.0 Sodium 136 Potassium 3.1 L Chloride 99 Carbon Dioxide 28 Anion Gap 12 BUN 5 L Creatinine 0.86 Estim Creat Clear Calc 130.1 Estimated GFR > 60 Random Glucose 95 Calcium 8.4 D Magnesium Total Bilirubin AST ALT Alkaline Phosphatase Troponin I High Sens Total Protein Albumin Lipase Urine Opiates Screen Urine Fentanyl Screen Ur Barbiturates Screen Ur Phencyclidine Scrn Ur Amphetamines Screen U Benzodiazepines Scrn Urine Cocaine Screen U Marijuana (THC) Screen Ethyl Alcohol Medications Medications Current Medications Cyanocobalamin (Cyanocobalamin (Vitamin B-12) 1,000 Mcg Tablet) 1,000 mcg PO DAILY [facility] Last Admin: 05/10/23 08:20 Dose: 1,000 mcg Enoxaparin Sodium (Enoxaparin Sodium 40 Mg/0.4 Ml Syringe) 40 mg SUBCUT DAILY [facility] Last Admin: 05/10/23 08:21 Dose: 40 mg Thiamine HCl 100 mg/ Sodium (Chloride) 101 mls @ 202 mls/hr IV DAILY [facility] Last Infusion: 05/10/23 12:00 Dose: Infused Folic Acid 1 mg/ Sodium (Chloride) 50.2 mls @ 100.4 mls/hr IV DAILY [facility] Last Infusion: 05/10/23 11:41 Dose: Infused Lactated Ringer's (Lr) 1,000 mls @ 100 mls/hr IVCONT .Q10H [facility] Last Admin: 05/11/23 02:37 Dose: 100 mls/hr Lidocaine (Lidocaine 4 % Patch Adh..Patch) 1 patch TRANSDERMA DAILY [facility]; Protocol Last Admin: 05/10/23 08:21 Dose: Not Given Melatonin (Melatonin 3 Mg Tablet) 6 mg PO BEDTIME PRN PRN Reason: Insomnia Last Admin: 05/10/23 21:56 Dose: 6 mg Multivitamins/Vitamin C (Multivitamin Tablet) 1 tab PO DAILY [facility] Last Admin: 05/10/23 08:20 Dose: 1 tab Ondansetron HCl (Ondansetron Hcl 4 Mg/2 Ml Vial) 4 mg IVPUSH Q6H PRN PRN Reason: nausea Last Admin: 05/10/23 00:05 Dose: 4 mg Pantoprazole Sodium (Pantoprazole Sodium 40 Mg/10 Ml Vial) 40 mg IVPUSH DAILY [facility] Last Admin: 05/10/23 08:16 Dose: 40 mg Pharmacy Consult (Consult Rx Etoh Phenob Im/Po) 1 each MISCELLANE ONCE PRN; Protocol PRN Reason: Consult order Phenobarbital (Phenobarbital 15 Mg Tablet) 45 mg PO BID [facility]; Protocol Stop: 05/11/23 21:01 Last Admin: 05/10/23 20:11 Dose: 45 mg Phenobarbital (Phenobarbital 15 Mg Tablet) 15 mg PO BID [facility]; Protocol Stop: 05/13/23 21:01 Phenobarbital (Phenobarbital 15 Mg Tablet) 15 mg PO DAILY [facility]; Protocol Stop: 05/15/23 09:01 Sodium Chloride (0.9 % Sodium Chloride Flush 3 Ml Syringe) 3 ml IVFLUSH QSHIFT [facility] Last Admin: 05/10/23 20:12 Dose: 3 ml Allergies Allergies Allergy/AdvReac Type Severity Reaction Status Date / Time No Known Allergies Allergy Verified 05/09/23 15:43 Assessment & Plan Assessment & Plan (1) Alcohol use disorder, severe, dependence: Status: Acute Code(s): F10.20 - Alcohol dependence, uncomplicated Assessment and Plan: * patient already connected to [facility] outpatient treatment [facility]--incuding therapy * declines referral to ATS level of care Total time managing care of this patient today ____ minutes. PMFSH Past Medical History Medical History Alcohol use disorder, moderate, dependence MDD (major depressive disorder), recurrent episode, moderate Nausea with vomiting Alcohol use disorder Anxiety and depression History of seizure due to alcohol withdrawal ETOH abuse Family History Family History Other Diabetes Social History Social History Household Members: Significant Other Housing: Apartment Do you presently have visiting nurse or other home services: No Alcohol intake: current Alcohol intake frequency: 3 or more drinks per day Alcohol type: hard liquor Patient Tobacco Use Status: Former Tobacco user Quit Date: 11 YEARS AGO Tobacco use type: Cigarette e-Cigarette/Vaping Use: Never Used Second Hand Smoke Exposure: No Substance Use Type: Marijuana Advance Directives Date on File: 11/07/22 service: No Current occupational status: employed
--- NOTE | 2023-05-11 09:05 | PC.NURSE ---
report recieved from overnight RN. First rounds preformed, pt resting quietly in bed, eyes closed RR 19. At approximately 0900 HAND II TUBE BENDER and rounder came to this RN stated the patient wanted to leave AMA, this RN and bellows charger assembler went into pt room to assess pt and see if we could do anything to help. Pt stated he can't be here anymore, being here is making his problems worse. MD notifed and up to bedside, pt adamant about leaving, MD discussed the risks of leaving before completing treatment with pt and pt verbalized understanding. AMA paper signed with 2 RN witness and MD. IV and tele removed. Pt belongings returned.
--- NOTE | 2023-05-11 09:48 | PM.DS ---
DS: Providers Provider Date of Service: 05/11/23 Date of admission: 05/09/23 17:48 Date of discharge: 05/11/23 Primary care physician: None Physician Consults: 05/09/23 20:06 Addiction Medicine Routine Consulting Provider: Addiction Covering Reason for consultation: Alcohol withdrawal Attending physician on discharge: Adam Velazquez Discharging clinician: Adam Velazquez DS: Diagnosis Discharge Diagnosis (1) Alcohol use disorder, severe, dependence: Status: Acute DS: Summary Hospital Course Hospital Course: 32-year-old male with a PMH significant for?alcohol use disorder with a hx of withdrawal seizures who presents to the ED for concerns of alcohol withdrawal. Patient states he quit drinking approximately 1 month ago after being discharged from this hospital for alcohol withdrawal, but states that he relapsed 1 week ago. Reports drinking ?constantly? since then, essentially drinking until he passes out then waking up and drinking more. Patient began experiencing episodes of vomiting 4 days ago. Reports subsequent epigastric pain and notes has occasionally been vomiting up blood. Last 8 4 days prior on Monday. He also claims intermittent diarrhea that has been ?greasy and black?. Endorses auditory and visual hallucinations: Says he has been seeing ?pink elephants? and been hearing [employer] as if it has been playing through a fan. Patient also reports an episode of loss of consciousness early this morning when he went up to go to the bathroom and then woke up to find himself on the bathroom floor. Patient denies any urinary symptoms: No dysuria or polyuria. In the ED the patient was afebrile, but tachycardic up to 168, tachypneic up to 22, and hypertensive up to 181/94, satting at 98% on RA. Labs were significant for WB of 12.1 with stable H&H, potassium 2.9, BUN <3, AST 57, ALT 63. Magnesium 2.2. Troponin negative. Tox screen positive for marijuana, ethyl alcohol 259. CXR unremarkable. CT of head showing no evidence of recent intracranial hemorrhage or acute infarct. CT of cervical spine found no acute fracture or subluxation of the cervical spine. EKG demonstrated normal sinus rhythm without evidence of ST elevations or depressions. Pt was treated with ondansetron, lorazepam, IVF, and started on phenobarb protocol. Pt will be admitted to the hospital for treatment and monitoring of acute alcohol withdrawal. Hospital course: Patient admitted for alcohol withdrawal, hypokalemia: Started on phenobarb protocol, IV hydration, electrolyte repleted. Patient was slowly improving , has less tremors. Hypokalemia improved. No new episode of vomiting and blood-H&H stable, initial episode possibly related to william sofia . Leukocytosis possibly reactive, currently no fever or any symptoms. patient refuses any further workup since leaving [facility]. This morning patient decided to leave against medical advice-risk of leaving against medical advice including worsening of alcohol withdrawal, seizures and even discussed in detail he understand and still wants to leave. alert oriented x3, patient could able to repeat rest of leaving against medical pardo. Still wants to leave [facility]. Patient was also told to come back to nearest emergency room if any new symptoms. Staff is present during the above conversation. Assessment and plan coordination time spent 50 minute. Time Spent with Patient Time attestation: Total time managing care of this patient today ____ minutes. Discharge coordination time: Greater than 30 minutes Quality: Safe Use of Opioids Does Pt have an Active Cancer Diagnosis on the Problem List?: No Quality: Stroke Does the patient have a stroke diagnosis?: No Physical Exam Vital Signs: Vital Signs: Last Vital Signs Temp 97.8 F 05/11/23 07:12 Pulse 54 05/11/23 07:12 Resp 20 05/11/23 07:12 BP 124/69 05/11/23 07:12 Pulse Ox 97 05/11/23 07:12 O2 Del Method Room Air 05/11/23 07:12 BMI result Body Mass Index 29.6 left AMA. DS: Data Data Completed and Pending Completed studies during hospitalization [Text1]: Procedures Detoxification Services for Substance Abuse Treatment (04/08/23) Labs on day of discharge: Laboratory Results - last 24 hr 05/11/23 08:46 Potassium 3.3 Discharge Plan Discharge Anticipated Discharge Date/Time: 05/11/23 09:47 Patient Disposition: Left Against Medical Advice Discharge Diagnosis: alcohol withdrawal ,hypokalemia, mild leucocytosis Referrals: Physician,None [Primary Care Provider] - 1 Week Discharge Medications: Continued omeprazole 40 mg capsule,delayed release(DR/EC) 40 mg PO BID cyanocobalamin (vitamin B-12) 1,000 mcg Tablet 1,000 mcg PO DAILY folic acid 1 mg tablet 1 mg PO DAILY Discharge Orders: Discharge Order (Routine); Ordered 05/11/23 Ordered By: Adam Velazquez Diet: Advance to usual diet Activity on Discharge: As tolerated Care Plan Goals: left [facility]. Health Concerns: . Plan of Treatment: . Assessment: .
== END 2023-05-11 09:20 | disposition left against medical advice (07) | DRG 770 ==
LOC: HO.ED 17:28 → HO.EDOVER 18:05 → HO.IMC 18:25
PROVIDERS: Physician Assistant; Student in an Organized Health Care Education/Training Program; Admitting Provider Internal Medicine; Emergency Provider Student in an Organized Health Care Education/Training Program; PCP Registered Nurse; Visit Provider Internal Medicine
DX: F10.232 Alcohol dependence with withdrawal with perceptual disturbance (principal); K22.6 Gastro-esophageal laceration-hemorrhage syndrome; R19.5 Other fecal abnormalities; D72.829 Elevated white blood cell count, unspecified; E87.6 Hypokalemia; Y90.8 Blood alcohol level of 240 mg/100 ml or more; Z87.891 Personal history of nicotine dependence; Z79.899 Other long term (current) drug therapy
CPT/HCPCS: 36415; 80048; 80053; 80307; 83690; 83735; 84132; 84484; 85014; 85018; 85025; 85027; 93005; 99285; J1650; J2060; J2405; J2560; J3411

== ENCOUNTER → 2023-05-09 17:48 | Outpatient (BNV) | payer OTHER, SELFPAY | PROVIDERS: Admitting Provider Internal Medicine; Emergency Provider Student in an Organized Health Care Education/Training Program; Visit Provider Student in an Organized Health Care Education/Training Program | DX: F10.20 Alcohol dependence, uncomplicated (principal) | CPT/HCPCS: 99223; 99232; 99239 ==

== ENCOUNTER 2023-10-27 08:29 | Emergency (ER) | payer OTHER, SELFPAY ==
--- NOTE | ~2023-10-27 | CT_ITS ---
EXAMINATION: CT ANGIOGRAM OF THE CHEST WITH AND WITHOUT CONTRAST (CT PULMONARY ANGIOGRAM FOR PE) CLINICAL INFORMATION: Reason for Exam pleuritic cp, +ddimer COMPARISON: None available. TECHNIQUE: Prior to contrast administration, noncontrast localization images were obtained. Subsequently, multidetector volumetric imaging was performed from the thoracic inlet to below the diaphragms following the administration of 80 mL Omnipaque 350 intravenous contrast. No contrast reaction reported Sagittal, coronal, and MIP oblique sagittal reformatted images were obtained on the CT workstation, uploaded to PACS, and reviewed. This CT examination was performed using dose optimization techniques as appropriate, variously including the following: *Automated exposure control *Adjustment of mA and/or kV according to patient size (this includes techniques or standardized protocols for targeted exams where dose is matched to indication/reason for exam; i.e. extremities or head) *Use of iterative reconstruction technique Total exam dose-length product 327 mGy-cm FINDINGS: QUALITY OF STUDY/CONTRAST BOLUS: Satisfactory. PULMONARY ARTERIES: No pulmonary emboli. THORACIC AORTA: No aneurysm. LUNG: No focal consolidation, nodules or masses. PLEURA: No pleural effusion or pneumothorax. MEDIASTINUM: Normal heart size. No pericardial effusion. No hilar or mediastinal lymphadenopathy. No evidence of septal bowing or right heart strain. CORONARY ARTERY CALCIFICATION: None visualized on this study. CHEST WALL/AXILLA: No axillary or internal mammary lymphadenopathy. OSSEOUS STRUCTURES: No acute or suspicious osseous abnormality. UPPER ABDOMEN: Visualized liver, spleen, pancreas and bilateral adrenal glands unremarkable. No reflux of contrast into the hepatic veins to suggest elevated right heart pressures. CT/CT angio chest PE protocol IMPRESSION: No evidence of PE. No evidence of aortic dissection or aneurysm.. The lungs are clear. VTE: negative
[2023-10-27 08:57] VITALS: BP 114/75; PULSE 65; RESP 18; TEMP 37.4; O2SAT 99; BMI 27.2
--- NOTE | 2023-10-27 09:19 | ECG_ITS ---
Test Reason : cp Blood Pressure : / mmHG Vent. Rate : 065 BPM Atrial Rate : 065 BPM P-R Int : 180 ms QRS Dur : 096 ms QT Int : 410 ms P-R-T Axes : 077 063 060 degrees QTc Int : 426 ms Normal sinus rhythm Normal ECG When compared with ECG of 09-MAY-2023 17:19, T wave amplitude has increased in Anterior leads Referred By: Gayatri Ramachandran Electronically Signed By:DANIELLE MARION
--- NOTE | 2023-10-27 09:40 | PC.NURSE ---
pt is alert and oriented, skin appropriate for ethnicity, respirations even and unlabored, pt reports being sick with respiratory thing since then feels like he can't catch his breath, it happens with exertion or at rest, also having intermittent pain in the sides/rib area and chest/back. vs stable
[2023-10-27 09:45] LABS: MANUAL DIFF FLAG NO
[2023-10-27 09:48] LABS: Basophils Absolute Auto 0.1 X10*3/uL (0.0-0.2); Basophils Percent Auto 1.1 % (0-2); Eosinophils Absolute Auto 0.6 X10*3/uL (0.0-0.4); Eosinophils Percent Auto 8.3 % (0-4); Hematocrit 41.9 % (42.0-52.0); Hemoglobin 14.5 g/dl (14.0-18.0); Imm Gran Abs Auto 0.02 X10*3/uL (0.00-0.03); Imm Gran Pct Auto 0.3 % (0.0-0.4); Lymphocytes Absolute Auto 2.6 X10*3/uL (1.2-4.9); Mean Corpuscular HGB Conc 34.6 g/dl (31.0-36.0); Mean Corpuscular Hemoglobin 29.3 pg (27.0-33.0); Mean Corpuscular Volume 84.6 fL (80.0-98.0); Mean Platelet Volume 8.7 fL (9.4-12.4); Monocytes Absolute Auto 0.5 X10*3/uL (0.1-1.2); Monocytes Percent Auto 6.2 % (2-11); Neutrophils Absolute Auto 3.5 x10*3/uL (2.0-8.3); Neutrophils Percent Auto 48.1 % (45-73); Platelet Count 430 X10*3/uL (160-400); Red Blood Count 4.95 X10*6/uL (4.60-5.80); White Blood Count 7.2 X10*3/uL (4.8-10.8)
[2023-10-27 09:56] LABS: D Dimer High Sensitivity 427 NG/ML
[2023-10-27 10:02] LABS: Alanine Aminotransferase 13 U/L (0-40); Albumin Level 4.5 g/dL (3.5-5.0); Alkaline Phosphatase 58 U/L (39-117); Anion Gap 12 (12-20); Aspartate Amino Transferase 18 U/L (5-37); Bilirubin Direct 0.2 mg/dL (0.0-0.5); Bilirubin Total 0.5 mg/dL (0.0-1.0); Blood Urea Nitrogen 7 mg/dL (9-16); Calcium 9.7 mg/dL (8.4-10.2); Carbon Dioxide 24 mmol/L (22-29); Chloride 108 mmol/L (96-108); Creatinine Clr Calc Pharmacy 123.2; Estimated Glomerular Filt Rate > 60; Glucose Random 94 mg/dL (60-115); Magnesium 1.9 mg/dL (1.6-2.6); Potassium 4.3 mmol/L (3.3-5.1); Sodium 140 mmol/L (135-145); Total Protein 7.7 g/dL (6.5-8.0)
[2023-10-27 10:19] LABS: Troponin-I High Sensitivity < 2.7 ng/L (<3.5-35.0)
[2023-10-27] MEDS: iohexoL 350 MG/ML 100 ML INFUS..BTL IV (10:59)
--- NOTE | 2023-10-27 12:29 | ED.GENADULT ---
HPI - General Adult General Chief complaint: General Medical Stated complaint: Diff Breathing Time Seen by Provider: 10/27/23 09:07 Source: patient and RN notes reviewed Mode of arrival: ambulatory Limitations: no limitations History of Present Illness HPI narrative: This is a 32-year-old male, with no known medical problems, presenting to the emergency department with complaints of chest pain and shortness of breath for the last month. Patient states that approximately 1 month ago he was sick with a cold. He states that he was coughing, and had intermittent shortness of breath and chest pain. He states that since he has had ongoing intermittent shortness of breath, as well as pain with deep inspiration. He states that he followed up with his primary care physician who ordered labs, and he reported that he had a positive D-dimer. He denies any lower extremity swelling. He denies any headaches, dizziness, blurred vision, fevers, chills, recent travel or surgeries, denies hospitalizations. Denies taking any medications at home to treat his current symptoms. He has not been on antibiotics. No other complaints or concerns at this time MD complaint: Chest pain, shortness of breath Onset (ago): month(s) Radiation: non-radiation Severity: moderate Quality: aching Pain Consistency: constant Relieving factors: none Exacerbating factors: none Associated symptoms: denies other symptoms Treatments prior to arrival: none Related Data Home Medications Medication Instructions Recorded Confirmed omeprazole 40 mg capsule,delayed 40 mg PO BID 03/22/23 05/09/23 release cyanocobalamin (vitamin B-12) 1,000 mcg PO DAILY 05/09/23 05/09/23 1,000 mcg tablet folic acid 1 mg tablet 1 mg PO DAILY 05/09/23 05/09/23 Previous Rx's Medication Instructions Recorded azithromycin 250 mg tablet See Rx Instructions PO .COMPLEX #6 10/27/23 tabs ibuprofen 600 mg tablet 600 mg PO Q6H PRN pain #30 tabs 10/27/23 Allergies Allergy/AdvReac Type Severity Reaction Status Date / Time No Known Allergies Allergy Verified 10/27/23 08:57 Review of Systems Review of Systems: Yes all other systems are reviewed and are negative Constitutional: Constitutional: Reports as per [facility] Past Medical History Attestation statement: The following information was validated with the patient. Medical History Alcohol use disorder, moderate, dependence MDD (major depressive disorder), recurrent episode, moderate Nausea with vomiting Alcohol use disorder Anxiety and depression History of seizure due to alcohol withdrawal ETOH abuse Family History Family History Other Diabetes Social History Social History Household Members: Significant Other Housing: Apartment Do you presently have visiting nurse or other home services: No Alcohol intake: former Patient Tobacco Use Status: Former Tobacco user Quit Date: 11 YEARS AGO Tobacco use type: Cigarette Smoked in Last 30 Days: No e-Cigarette/Vaping Use: Never Used Second Hand Smoke Exposure: No Use of substances other than those prescribed or required for medical reasons: Yes Substance Use Type: Marijuana Substance Use Frequency: Occasionally Advance Directives: Yes Advance Directives on File: Yes Advance Directives Date on File: 11/07/22 service: No Current occupational status: employed Physical Exam ED Vital Signs: Vital Signs - 24 hr 10/27/23 08:57 10/27/23 12:44 10/27/23 13:04 Temperature 99.3 F 98.5 F 98.5 F Pulse Rate 65 61 61 Respiratory Rate 18 18 18 Blood Pressure 114/75 120/76 120/76 Pulse Oximetry 99 98 98 Oxygen Delivery Method Room Air Room Air Room Air BMI result Body Mass Index 27.2 Const General: cooperative, comfortable and no acute distress Orientation/consciousness: patient oriented x3 Limitations: no limitations HENMT Head: Yes normal to inspection, Yes normocephalic and Yes atraumatic Ears: hearing grossly normal bilaterally General nose exam: Normal external nose present Face and sinus: Yes normal facial exam Mouth: Normal oral and palatal mucosa present, oropharynx normal and moist mucous membranes Throat: Yes posterior oropharynx normal Eyes General: appearance normal, both eyes and all related structures Eyelids: Yes eyelids normal Conjunctivae: conjunctivae normal Sclerae: sclerae normal Pupils: Equal, round and reactive pupils present EOM: EOMs intact bilaterally Neck Neck: Yes normal visual inspection, Yes full ROM and Yes no lymphadenopathy Lymphatic: no lymphadenopathy noted Chest Chest palpation & inspection: normal inspection of the chest Resp Effort & Inspection: normal respiratory effort and able to speak in complete sentences Auscultation: clear to auscultation bilaterally, no crackles, no rales, no rhonchi and no wheezes Cardio Rate: regular rate Rhythm: regular rhythm Heart sounds: S1 normal heart sound present and S2 normal heart sound present GI Inspection: Yes normal to inspection Skin General skin exam: no rashes or lesions noted Trauma: no lacerations or abrasions Wounds: no wounds Neuro General: patient oriented x3 and moves all extremities Cranial nerves: Yes Equal, round and reactive pupils present Extrem Other: No lower extremity swelling, no calf tenderness. General: Yes normal to inspection Right upper extremity: normal to inspection Left upper extremity: normal to inspection Right lower extremity: normal to inspection Left lower extremity: normal to inspection Course Reevaluation(s) Reevaluation #1: DDimer was elevated, therefore CT performed revealing no PE or consolidation. Discussed findings with patient. Sxs likely due to pleurisy. Will treat with ABX and Nsaids, given return precautions. He understands and agrees with plan. stable for d/c. Medications Administered Discontinued Medications Generic Name Dose Route Start Last Admin Trade Name Freq PRN Reason Stop Dose Admin Iohexol 100 ml 10/27/23 10:58 10/27/23 10:59 Iohexol 350 Mg/Ml 100 Ml Infus..Btl IV 10/27/23 10:59 65 ml ONCE ONE Administration Medical Decision Making Medical Decision Making [facility] Narrative: This is a 32-year-old male presenting to the emergency department complaints of shortness of breath and chest pain for the last month. He was sick with a cold about 1 month ago and states that he feels as though he has not fully recovered. Patient with pleuritic chest pain. Lungs are clear to auscultation on examination, patient is not hypoxic, not tachycardic. He appears comfortable under no acute distress. Given positive outpatient D-dimer, will repeat today. EKG, and other labs ordered. Differential diagnoses include pleurisy, PE, URI, ACS. He has no lower extremity edema or pain. Plan: Labs, EKG, +/- CT Differential Diagnosis Differential Diagnoses: The differential diagnosis associated with the presentation includes see above Lab Data [facility] Lab Attestation statement: I reviewed the patient's lab results. No leukocytosis, stable H&H,ddimer 427 > elevated. 10/27/23 09:36 10/27/23 09:36 Labs: Lab Results 10/27/23 Range/Units 09:36 WBC 7.2 (4.8-10.8) X10*3/uL RBC 4.95 (4.60-5.80) X10*6/uL Hgb 14.5 (14.0-18.0) g/dl Hct 41.9 L (42.0-52.0) % MCV 84.6 (80.0-98.0) fL MCH 29.3 (27.0-33.0) pg MCHC 34.6 (31.0-36.0) g/dl RDW 13.0 (11.0-16.0) % Plt Count 430 H (160-400) X10*3/uL MPV 8.7 L (9.4-12.4) fL Immature Gran % (Auto) 0.3 (0.0-0.4) % Neut % (Auto) 48.1 (45-73) % Lymph % (Auto) 36.0 (20-40) % [place] % (Auto) 6.2 (2-11) % Eos % (Auto) 8.3 H (0-4) % Baso % (Auto) 1.1 (0-2) % Lymph # (Auto) 2.6 (1.2-4.9) X10*3/uL [place] # (Auto) 0.5 (0.1-1.2) X10*3/uL Eos # (Auto) 0.6 H (0.0-0.4) X10*3/uL Baso # (Auto) 0.1 (0.0-0.2) X10*3/uL Abs Immat Gran (auto) 0.02 (0.00-0.03) X10*3/uL Absolute Neuts (auto) 3.5 (2.0-8.3) x10*3/uL Absolute Nucleated RBC 0.000 (0.0-0.012) X10*3/uL Nucleated RBC % (auto) 0.0 (0.0-0.2) /100WBC D-Dimer High Sensitivty 427 NG/ML Sodium 140 (135-145) mmol/L Potassium 4.3 (3.3-5.1) mmol/L Chloride 108 (96-108) mmol/L Carbon Dioxide 24 (22-29) mmol/L Anion Gap 12 (12-20) BUN 7 L (9-16) mg/dL Creatinine 0.84 (0.5-1.4) mg/dL Estim Creat Clear Calc 123.2 Estimated GFR > 60 Random Glucose 94 (60-115) mg/dL Calcium 9.7 D (8.4-10.2) mg/dL Magnesium 1.9 (1.6-2.6) mg/dL Total Bilirubin 0.5 (0.0-1.0) mg/dL Direct Bilirubin 0.2 (0.0-0.5) mg/dL AST 18 (5-37) U/L ALT 13 (0-40) U/L Alkaline Phosphatase 58 (39-117) U/L Troponin I High Sens < 2.7 (<3.5-35.0) ng/L Total Protein 7.7 (6.5-8.0) g/dL Albumin 4.5 (3.5-5.0) g/dL Independent Interpretation I performed an independent interpretation of an: EKG Interpretation: Vent. Rate : 065 BPM Atrial Rate : 065 BPM P-R Int : 180 ms QRS Dur : 096 ms QT Int : 410 ms P-R-T Axes : 077 063 060 degrees QTc Int : 426 ms Normal sinus rhythm Normal ECG Normal sinus rhythm with no st elevation or depression. Radiology Impression Discussion of test interpretation with radiology: I have reviewed the radiologist's reading. Radiologist Impression: CT/CT angio chest PE protocol IMPRESSION: No evidence of PE. No evidence of aortic dissection or aneurysm.. The lungs are clear. VTE: negative Dictated By: Nithin Odonnell MD Discharge Plan Discharge Clinical Impression: Pleurisy, URI (upper respiratory infection) Patient Disposition: Home, Self-Care Instructions: Pleurisy (ED), Upper Respiratory Infection (ED) Additional Instructions: You were seen in the emergency department due to chest pain, shortness of breath, an an elevated D-Dimer test. We performed a CT scan of your chest which did not indicate any pulmonary embolism(blood clot). It is unclear what caused you to have an elevation in your D-dimer test however it is reassuring that your CT scan was normal. Your blood work was reassuring.Your EKG was normal. You likely have something all pleurisy, this is inflammation your chest wall which can cause pain and shortness of breath. I am prescribing you an antibiotic as well as ibuprofen. This will help with the inflammation in your lung lining, which should help with your symptoms. Please drink plenty of fluids get plenty of rest. Please follow-up with your primary care physician regarding this visit. If any new or worsening symptoms occur, including but not limited to worsening chest pain, shortness of breath, fevers, chills, please return for re-evaluation. Prescriptions: New azithromycin 250 mg tablet See Rx Instructions PO .COMPLEX Qty: 6 0RF Rx Instructions: For 250 mg dose pack: take 500 mg today (day 1), then 250 mg for 4 days (days 2-5) ibuprofen 600 mg tablet 600 mg PO Q6H PRN (Reason: pain) Qty: 30 0RF No Action omeprazole 40 mg capsule,delayed release(DR/EC) 40 mg PO BID cyanocobalamin (vitamin B-12) 1,000 mcg Tablet 1,000 mcg PO DAILY folic acid 1 mg tablet 1 mg PO DAILY Interventions: ED Discharge Assessment Last Done: 10/27/23 13:04 Discharge Date/Time: 10/27/23 13:06
[2023-10-27 12:44] VITALS: BP 120/76; PULSE 61; RESP 18; TEMP 36.9; O2SAT 98
[2023-10-27 13:04] VITALS: BP 120/76; PULSE 61; RESP 18; TEMP 36.9; O2SAT 98
== END 2023-10-27 13:06 | disposition home or self-care (01) ==
PROVIDERS: Physician Assistant Medical; Emergency Provider Emergency Medicine; PCP Registered Nurse
DX: R09.1 Pleurisy (principal); J06.9 Acute upper respiratory infection, unspecified
CPT/HCPCS: 36415; 71275; 80048; 80076; 83735; 84484; 85025; 85379; 93005; 99284; Q9967

== ENCOUNTER → 2023-10-27 09:19 | Outpatient (BNV) | payer OTHER, SELFPAY | PROVIDERS: Emergency Provider Emergency Medicine; PCP Registered Nurse; Visit Provider Internal Medicine | DX: R07.9 Chest pain, unspecified (principal) | CPT/HCPCS: 93010 ==

== ENCOUNTER 2024-02-29 19:37 | Emergency (ER) | payer OTHER, SELFPAY ==
--- NOTE | 2024-02-29 | ECG_ITS ---
Test Reason : CHEST PAIN Blood Pressure : / mmHG Vent. Rate : 107 BPM Atrial Rate : 107 BPM P-R Int : 152 ms QRS Dur : 080 ms QT Int : 328 ms P-R-T Axes : 073 067 052 degrees QTc Int : [address] elevation, consider early repolarization, pericarditis, or injury Abnormal ECG When compared with ECG of 27-OCT-2023 09:24, Vent. rate has increased BY 42 BPM Referred By: Generic ED Physician Electronically Signed By:DANIELLE MARION
--- NOTE | ~2024-02-29 | XR_ITS ---
EXAMINATION: XR CHEST CLINICAL INFORMATION: Chest pain COMPARISON: CTA chest from 10/27/2023 TECHNIQUE: 2 views of the chest were obtained. FINDINGS: No significant abnormality is noted involving the heart, lungs, mediastinum, bony thorax or soft tissues. XR/XR chest 2V IMPRESSION: Unremarkable examination.
[2024-02-29 19:52] VITALS: BP 120/66; PULSE 100; RESP 18; TEMP 37.2; O2SAT 98; BMI 25.1
--- NOTE | 2024-02-29 19:53 | ED_ITS ---
HPI - General Adult General Chief complaint: Chest Pain Stated complaint: chest pain Time Seen by Provider: 02/29/24 21:23 Related Data Home Medications ?Medication ?Instructions ?Recorded ?Confirmed omeprazole 40 mg capsule,delayed 40 mg PO BID 03/22/23 05/09/23 release cyanocobalamin (vitamin B-12) 1,000 mcg PO DAILY 05/09/23 05/09/23 1,000 mcg tablet folic acid 1 mg tablet 1 mg PO DAILY 05/09/23 05/09/23 Previous Rx's ?Medication ?Instructions ?Recorded azithromycin 250 mg tablet See Rx Instructions PO .COMPLEX #6 10/27/23 tabs ibuprofen 600 mg tablet 600 mg PO Q6H PRN pain #30 tabs 10/27/23 colchicine 0.6 mg tablet 0.6 mg PO BID 4 weeks #56 tabs 02/29/24 ibuprofen 400 mg tablet 400 mg PO TID PRN pain #60 tabs 02/29/24 Allergies Allergy/AdvReac Type Severity Reaction Status Date / Time No Known Allergies Allergy Verified 03/02/24 07:51 PMFSH Past Medical History Medical History Alcohol use disorder, moderate, dependence MDD (major depressive disorder), recurrent episode, moderate Nausea with vomiting Alcohol use disorder Anxiety and depression History of seizure due to alcohol withdrawal ETOH abuse Family History Family History Other Diabetes Social History Social History Household Members: Significant Other Housing: Apartment Do you presently have visiting nurse or other home services: No Alcohol intake: former Patient Tobacco Use Status: Former Tobacco user Tobacco use type: Cigarette Smoked in Last 30 Days: No e-Cigarette/Vaping Use: Never Used Second Hand Smoke Exposure: No Use of substances other than those prescribed or required for medical reasons: No Substance Use Type: Marijuana Advance Directives: Yes Advance Directives on File: Yes Advance Directives Date on File: 11/07/22 Do you have a plan to hurt others: No Plan service: No Current occupational status: employed Physical Exam ED Vital Signs: BMI result Body Mass Index 25.1 Course Course Course Narrative: This is a rapid medical exam performed by Tristen Sal NP: Additional HPI, ROS, PE not included below will be deferred to primary provider. Patient is a 33- year old male presenting to the ED with complaint of chest pain since this morning. Radiates to left neck, shoulder and back. Feels short of breath, states can't fully exhale. Someone at work gave him a nitroglycerine and this made his symptoms worse and he vomited a few times. Plan: labs, viral swabs, cxr Medications Administered Discontinued Medications Generic Name Dose Route Start Last Admin Trade Name Jean-Pierreq PRN Reason Stop Dose Admin Colchicine 1.2 mg 02/29/24 21:46 02/29/24 22:12 Colchicine 0.6 Mg Tablet PO 02/29/24 21:47 1.2 mg ONCE ONE Administration Ketorolac Tromethamine 60 mg 02/29/24 21:46 02/29/24 22:12 Ketorolac Tromethamine 60 Mg/2 Ml Vial IM 02/29/24 21:47 60 mg ONCE ONE Administration Medical Decision Making Lab Data 02/29/24 20:03 02/29/24 20:03 Labs: Lab Results 02/29/24 Range/Units 20:03 WBC 16.0 H (4.8-10.8) X10*3/uL RBC 4.42 L (4.60-5.80) X10*6/uL Hgb 13.2 L (14.0-18.0) g/dl Hct 38.6 L (42.0-52.0) % MCV 87.3 (80.0-98.0) fL MCH 29.9 (27.0-33.0) pg MCHC 34.2 (31.0-36.0) g/dl RDW 13.3 (11.0-16.0) % Plt Count 300 D (160-400) X10*3/uL MPV 8.8 L (9.4-12.4) fL Immature Gran % (Auto) 0.3 (0.0-0.4) % Neut % (Auto) 74.4 H (45-73) % Lymph % (Auto) 13.4 L (20-40) % [place] % (Auto) 10.1 (2-11) % Eos % (Auto) 1.3 (0-4) % Baso % (Auto) 0.5 (0-2) % Lymph # (Auto) 2.1 (1.2-4.9) X10*3/uL [place] # (Auto) 1.6 H (0.1-1.2) X10*3/uL Eos # (Auto) 0.2 (0.0-0.4) X10*3/uL Baso # (Auto) 0.1 (0.0-0.2) X10*3/uL Abs Immat Gran (auto) 0.05 H (0.00-0.03) X10*3/uL Absolute Neuts (auto) 11.9 H (2.0-8.3) x10*3/uL Absolute Nucleated RBC 0.000 (0.0-0.012) X10*3/uL Nucleated RBC % (auto) 0.0 (0.0-0.2) /100WBC Smear Tech's Comments VERIFIED Sodium 140 (135-145) mmol/L Potassium 3.8 (3.3-5.1) mmol/L Chloride 107 (96-108) mmol/L Carbon Dioxide 23 (22-29) mmol/L Anion Gap 14 (12-20) BUN 8 L (9-16) mg/dL Creatinine 0.80 (0.5-1.4) mg/dL Estim Creat Clear Calc 128.2 Estimated GFR > 60 Random Glucose 94 (60-115) mg/dL Calcium 9.0 D (8.4-10.2) mg/dL Total Bilirubin 1.0 (0.0-1.0) mg/dL AST 19 (5-37) U/L ALT 10 (0-40) U/L Alkaline Phosphatase 52 (39-117) U/L Troponin I High Sens < 2.7 (<3.5-35.0) ng/L Total Protein 7.2 (6.5-8.0) g/dL Albumin 4.5 (3.5-5.0) g/dL Influenza Type A (PCR) NEGATIVE (Negative) Influenza Type B (PCR) NEGATIVE (Negative) RSV RNA Qual (PCR) NEGATIVE (Negative) SARS-CoV-2 RNA (RT-PCR) NEGATIVE (Negative) Discharge Plan Discharge Clinical Impression: Pericarditis Patient Disposition: Home, Self-Care Instructions: Acute Pericarditis (ED) Additional Instructions: Please follow-up with your primary care physician tomorrow. If you have any worsening or new symptoms, please return to the emergency room or call 911 Prescriptions: New colchicine 0.6 mg tablet 0.6 mg PO BID 28 Days Qty: 56 0RF ibuprofen 400 mg tablet 400 mg PO TID PRN (Reason: pain) Qty: 60 0RF No Action omeprazole 40 mg capsule,delayed release(DR/EC) 40 mg PO BID cyanocobalamin (vitamin B-12) 1,000 mcg Tablet 1,000 mcg PO DAILY folic acid 1 mg tablet 1 mg PO DAILY azithromycin 250 mg tablet See Rx Instructions PO .COMPLEX Qty: 6 0RF Rx Instructions: For 250 mg dose pack: take 500 mg today (day 1), then 250 mg for 4 days (days 2-5) ibuprofen 600 mg tablet 600 mg PO Q6H PRN (Reason: pain) Qty: 30 0RF Interventions: ED Discharge Assessment Last Done: 02/29/24 22:16 Discharge Date/Time: 02/29/24 22:17 Print Language: Kazakh
[2024-02-29 20:09] LABS: Basophils Absolute Auto 0.1 X10*3/uL (0.0-0.2); Basophils Percent Auto 0.5 % (0-2); Eosinophils Absolute Auto 0.2 X10*3/uL (0.0-0.4); Eosinophils Percent Auto 1.3 % (0-4); Hematocrit 38.6 % (42.0-52.0); Hemoglobin 13.2 g/dl (14.0-18.0); Imm Gran Abs Auto 0.05 X10*3/uL (0.00-0.03); Imm Gran Pct Auto 0.3 % (0.0-0.4); Lymphocytes Absolute Auto 2.1 X10*3/uL (1.2-4.9); Lymphocytes Percent Auto 13.4 % (20-40); MANUAL DIFF FLAG SCAN; Mean Corpuscular HGB Conc 34.2 g/dl (31.0-36.0); Mean Corpuscular Hemoglobin 29.9 pg (27.0-33.0); Mean Corpuscular Volume 87.3 fL (80.0-98.0); Mean Platelet Volume 8.8 fL (9.4-12.4); Monocytes Absolute Auto 1.6 X10*3/uL (0.1-1.2); Monocytes Percent Auto 10.1 % (2-11); Neutrophils Absolute Auto 11.9 x10*3/uL (2.0-8.3); Neutrophils Percent Auto 74.4 % (45-73); Platelet Count 300 X10*3/uL (160-400); Red Blood Count 4.42 X10*6/uL (4.60-5.80); Red Cell Distribution Width 13.3 % (11.0-16.0); SCAN SMEAR FLAG 1
[2024-02-29 20:29] LABS: Alanine Aminotransferase 10 U/L (0-40); Albumin Level 4.5 g/dL (3.5-5.0); Alkaline Phosphatase 52 U/L (39-117); Anion Gap 14 (12-20); Aspartate Amino Transferase 19 U/L (5-37); Blood Urea Nitrogen 8 mg/dL (9-16); Carbon Dioxide 23 mmol/L (22-29); Chloride 107 mmol/L (96-108); Creatinine Clr Calc Pharmacy 128.2; Estimated Glomerular Filt Rate > 60; Glucose Random 94 mg/dL (60-115); Potassium 3.8 mmol/L (3.3-5.1); Sodium 140 mmol/L (135-145); Total Protein 7.2 g/dL (6.5-8.0)
[2024-02-29 20:34] LABS: SLIDE REVIEW VERIFIED
[2024-02-29 20:39] LABS: Troponin-I High Sensitivity < 2.7 ng/L (<3.5-35.0)
[2024-02-29 20:50] LABS: Influenza A PCR NEGATIVE (Negative); Influenza B PCR NEGATIVE (Negative); Resp Syncy Virus RNA Qual PCR NEGATIVE (Negative); SARS COV2 PCR INHOUSE NEGATIVE (Negative)
--- NOTE | 2024-02-29 20:54 | PC.NURSE ---
pt from home, a&ox4, respirations even and unlabored, reporting x2 days of chest pain which worsens with breath, reports the pain radiates into his left neck and upper extremity, pt reports upper extremity feels numb. pt denies n/v/d, and denies sick contacts. pt reports he had been given a tablet of nitro at work and felt dizzy after administration. pt able to ambulate at this time and denies dizziness. pt normal sinus on tele 90-93bpm.
--- NOTE | 2024-02-29 21:47 | ED.CHESTPAIN ---
HPI - Chest Pain General Chief Complaint: Chest Pain Stated Complaint: chest pain Time Seen by Provider: 02/29/24 21:23 Source: patient Mode of arrival: ambulatory Limitations: no limitations History of Present Illness ED Provider: Dr. Hafsa Saini HPI narrative: Patient comes to the emergency room complaining of sharp stabbing chest pain on the right left, especially in the middle area. Patient states that it is worse with deep inspirations and better with leaning forward. Patient states that this happened when he was at work, patient took a nitroglycerin tablet from 1 of his coworkers. Patient states that it made him feel very sick, started vomiting and having headache. Then patient came to the emergency room. Patient states the pain is tolerable but if he takes a deep breath it feels very sharp. Patient denies any shortness of breath, no cardiac history. Related Data Home Medications ?Medication ?Instructions ?Recorded ?Confirmed omeprazole 40 mg capsule,delayed 40 mg PO BID 03/22/23 05/09/23 release cyanocobalamin (vitamin B-12) 1,000 mcg PO DAILY 05/09/23 05/09/23 1,000 mcg tablet folic acid 1 mg tablet 1 mg PO DAILY 05/09/23 05/09/23 Previous Rx's ?Medication ?Instructions ?Recorded azithromycin 250 mg tablet See Rx Instructions PO .COMPLEX #6 10/27/23 tabs ibuprofen 600 mg tablet 600 mg PO Q6H PRN pain #30 tabs 10/27/23 colchicine 0.6 mg tablet 0.6 mg PO BID 4 weeks #56 tabs 02/29/24 ibuprofen 400 mg tablet 400 mg PO TID PRN pain #60 tabs 02/29/24 Allergies Allergy/AdvReac Type Severity Reaction Status Date / Time No Known Allergies Allergy Verified 02/29/24 19:56 Review of Systems Review of Systems: Constitutional : No Weight loss, No Fever, No Chills, No Night Sweats, No Fatigue, No Malaise ENT/Mouth : No Hearing loss, No Ear Pain, No Nasal Congestion, No Sinus Pain, No Hoarseness, No sore throat, No Rhinorrhea, No Swallowing Difficulty Eyes: No Eye Pain, No Swelling, No Redness, No Foreign Body, No Discharge, No Vision Changes Cardiovascular : Complaining of chest pain with deep inspirations No SOB, No Dyspnea on Exertion, No Orthopnea, No Edema, No Palpitations Respiratory : No Cough, No Sputum, No Wheezing, No Smoke Exposure, No Dyspnea Gastrointestinal : Complaining of Vomiting x1 after ingesting nitroglycerin No Diarrhea, No Constipation, No abdominal Pain, No Hematochezia, No Melena Genitourinary : no irregular bleeding, No Dysuria, No Urinary Frequency, No Hematuria, No Urinary Incontinence, No Urgency, No Flank Pain, No Urinary Flow Changes, No Hesitancy Musculoskeletal : No joint pain, No Myalgias, No Joint Swelling Skin : No Skin Lesions, No rash Neuro : No Weakness, No Numbness, No Paresthesias, No Loss of Consciousness, No Dizziness, mild Headache after taking nitroglycerin Psych : No Anxiety/Panic, No Depression, No SI/HI/AH/VH, No Social Issues, Heme/Lymph: No Bruising, No Bleeding,No Lymphadenopathy Endocrine : No Polyuria, No Polydipsia, No Temperature Intolerance [facility] Past Medical History Medical History Alcohol use disorder, moderate, dependence MDD (major depressive disorder), recurrent episode, moderate Nausea with vomiting Alcohol use disorder Anxiety and depression History of seizure due to alcohol withdrawal ETOH abuse Family History Family History Other Diabetes Social History Social History Household Members: Significant Other Housing: Apartment Do you presently have visiting nurse or other home services: No Alcohol intake: former Patient Tobacco Use Status: Former Tobacco user Tobacco use type: Cigarette Smoked in Last 30 Days: No e-Cigarette/Vaping Use: Never Used Second Hand Smoke Exposure: No Use of substances other than those prescribed or required for medical reasons: Yes Substance Use Type: Marijuana Advance Directives: Yes Advance Directives on File: Yes Advance Directives Date on File: 11/07/22 Do you have a plan to hurt others: No Plan service: No Current occupational status: employed Physical Exam Vital Signs: Vital Signs: Last Vital Signs Temp 99.0 F 02/29/24 19:52 Pulse 100 02/29/24 19:52 Resp 18 02/29/24 19:52 BP 120/66 02/29/24 19:52 Pulse Ox 98 02/29/24 19:52 O2 Del Method Room Air 02/29/24 19:52 BMI result Body Mass Index 25.1 Const: Other: Appearance: Alert. Oriented X3. No acute distress. Well-appearing Eyes: Pupils equal, round and reactive to light. ENT: Pharynx normal. Neck: Normal inspection. Neck supple. No lymph nodes noted. No crepitus CVS: Normal heart rate and rhythm. Pulses normal. Normal S1 and S2 Respiratory: No respiratory distress. Breath sounds normal. No Wheezing. No rales Abdomen: Soft and nontender. No rigidity. No distention. Skin: Skin warm and dry. Normal skin color. Normal skin turgor. Extremities: No lower extremity edema. No Lacerations. No Rash Neuro: Oriented X 3. No motor deficit. No sensory deficit. Moving all extremities. No slurred speech. CN 2 through 12 grossly intact Psych: calm, cooperative, normal affect Medical Decision Making Medical Decision Making [facility] Narrative: -my interpretation of EKG: Sinus tachycardia, heart rate 107, diffuse ST segment elevation of 1 mm, QTC 437 -my interpretation of labs: Patient's white blood cell count slightly elevated 16, chemistry troponin within normal limits -my interpretation of chest x-ray no obvious abnormality. -I discussed with Dr. Michel from Cardiology they EKG and patient's symptoms, this likely being pericarditis. 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 02/29/24 20:03 02/29/24 20:03 Labs: Lab Results 02/29/24 Range/Units 20:03 WBC 16.0 H (4.8-10.8) X10*3/uL RBC 4.42 L (4.60-5.80) X10*6/uL Hgb 13.2 L (14.0-18.0) g/dl Hct 38.6 L (42.0-52.0) % MCV 87.3 (80.0-98.0) fL MCH 29.9 (27.0-33.0) pg MCHC 34.2 (31.0-36.0) g/dl RDW 13.3 (11.0-16.0) % Plt Count 300 D (160-400) X10*3/uL MPV 8.8 L (9.4-12.4) fL Immature Gran % (Auto) 0.3 (0.0-0.4) % Neut % (Auto) 74.4 H (45-73) % Lymph % (Auto) 13.4 L (20-40) % Edgar % (Auto) 10.1 (2-11) % Eos % (Auto) 1.3 (0-4) % Baso % (Auto) 0.5 (0-2) % Lymph # (Auto) 2.1 (1.2-4.9) X10*3/uL Edgar # (Auto) 1.6 H (0.1-1.2) X10*3/uL Eos # (Auto) 0.2 (0.0-0.4) X10*3/uL Baso # (Auto) 0.1 (0.0-0.2) X10*3/uL Abs Immat Gran (auto) 0.05 H (0.00-0.03) X10*3/uL Absolute Neuts (auto) 11.9 H (2.0-8.3) x10*3/uL Absolute Nucleated RBC 0.000 (0.0-0.012) X10*3/uL Nucleated RBC % (auto) 0.0 (0.0-0.2) /100WBC Smear Tech's Comments VERIFIED Sodium 140 (135-145) mmol/L Potassium 3.8 (3.3-5.1) mmol/L Chloride 107 (96-108) mmol/L Carbon Dioxide 23 (22-29) mmol/L Anion Gap 14 (12-20) BUN 8 L (9-16) mg/dL Creatinine 0.80 (0.5-1.4) mg/dL Estim Creat Clear Calc 128.2 Estimated GFR > 60 Random Glucose 94 (60-115) mg/dL Calcium 9.0 D (8.4-10.2) mg/dL Total Bilirubin 1.0 (0.0-1.0) mg/dL AST 19 (5-37) U/L ALT 10 (0-40) U/L Alkaline Phosphatase 52 (39-117) U/L Troponin I High Sens < 2.7 (<3.5-35.0) ng/L Total Protein 7.2 (6.5-8.0) g/dL Albumin 4.5 (3.5-5.0) g/dL Influenza Type A (PCR) NEGATIVE (Negative) Influenza Type B (PCR) NEGATIVE (Negative) RSV RNA Qual (PCR) NEGATIVE (Negative) SARS-CoV-2 RNA (RT-PCR) NEGATIVE (Negative) Independent Interpretation I performed an independent interpretation of an: Plain X-Ray Interpretation: No significant abnormality is noted involving the heart, lungs, mediastinum, bony thorax or soft tissues. XR/XR chest 2V IMPRESSION: Unremarkable examination. Critical Care Time Critical Care Time Critical Care Time: Yes Total Critical Care Time: 45 Attestation: I have personally provided critical care time. Time includes review of lab data, radiology results, discussion with consultants, and monitoring for potential decompensation. Intervention performed as documented. Discharge Plan Discharge Clinical Impression: Pericarditis Patient Disposition: Home, Self-Care Instructions: Acute Pericarditis (ED) Additional Instructions: Please follow-up with your primary care physician tomorrow. If you have any worsening or new symptoms, please return to the emergency room or call 911 Prescriptions: New colchicine 0.6 mg tablet 0.6 mg PO BID 28 Days Qty: 56 0RF ibuprofen 400 mg tablet 400 mg PO TID PRN (Reason: pain) Qty: 60 0RF No Action omeprazole 40 mg capsule,delayed release(DR/EC) 40 mg PO BID cyanocobalamin (vitamin B-12) 1,000 mcg Tablet 1,000 mcg PO DAILY folic acid 1 mg tablet 1 mg PO DAILY azithromycin 250 mg tablet See Rx Instructions PO .COMPLEX Qty: 6 0RF Rx Instructions: For 250 mg dose pack: take 500 mg today (day 1), then 250 mg for 4 days (days 2-5) ibuprofen 600 mg tablet 600 mg PO Q6H PRN (Reason: pain) Qty: 30 0RF Print Language: [place] Islander
--- NOTE | 2024-02-29 22:00 | PC.NURSE ---
pharmacy to bring up medication at this time.
[2024-02-29] MEDS: Colchicine 0.6 MG TABLET 1.2 MG PO (22:12)
[2024-02-29] MEDS: Ketorolac Tromethamine 60 MG/2 ML VIAL IM (22:12)
[2024-02-29 22:13] VITALS: BP 125/80; PULSE 104; RESP 16; TEMP 36.9; O2SAT 98
[2024-02-29 22:16] VITALS: BP 125/80; PULSE 104; RESP 16; TEMP 36.9; O2SAT 98
== END 2024-02-29 22:17 | disposition home or self-care (01) ==
PROVIDERS: Registered Nurse Emergency; Emergency Provider Emergency Medicine
DX: I31.9 Disease of pericardium, unspecified (principal); R07.89 Other chest pain; R11.10 Vomiting, unspecified; R51.9 Headache, unspecified; Z79.899 Other long term (current) drug therapy; Z87.891 Personal history of nicotine dependence; Z03.818 Encounter for observation for suspected exposure to other biological agents ruled out
CPT/HCPCS: 0241U; 36415; 71046; 80053; 84484; 85025; 93005; 96365; 96366; 96372; 99284; 99285; J1885

== ENCOUNTER → 2024-02-29 19:38 | Outpatient (BNV) | payer OTHER, SELFPAY | PROVIDERS: Emergency Provider Emergency Medicine; Visit Provider Internal Medicine | DX: R94.31 Abnormal electrocardiogram [ECG] [EKG] (principal) | CPT/HCPCS: 93010 ==

== ENCOUNTER 2024-03-02 07:38 | Emergency (ER) | payer OTHER, SELFPAY ==
[2024-03-02] VITALS (8 sets, daily range): BP systolic 105–120; BP diastolic 75–88; PULSE 101–130; RESP 13–24; TEMP 36.7–37.5; O2SAT 95–99; BMI 26.0
--- NOTE | 2024-03-02 | ECG_ITS ---
Test Reason : chest pain Blood Pressure : / mmHG Vent. Rate : 146 BPM Atrial Rate : 146 BPM P-R Int : 140 ms QRS Dur : 064 ms QT Int : 272 ms P-R-T Axes : 072 078 053 degrees QTc Int : 423 ms Sinus tachycardia Diffuse ST elevation, could be pericarditis Abnormal ECG When compared with ECG of 29-FEB-2024 19:38, No significant change was found Referred By: Generic ED Physician Electronically Signed By:DANIELLE MARION
--- NOTE | ~2024-03-02 | CT_ITS ---
EXAMINATION: CT ANGIOGRAM CHEST CLINICAL INFORMATION: Severe chest pain. Rule out dissection. COMPARISON: Chest x-ray February 29, 2024 and CTA chest October 27, 2023 TECHNIQUE: Multiple axial images were obtained through the chest after the administration of 70 mL of Omnipaque 350 intravenous contrast. Reformatted coronal, sagittal and MIP images were provided for interpretation. This CT examination was performed using dose optimization techniques as appropriate, variously including the following: *Automated exposure control *Adjustment of mA and/or kV according to patient size (this includes techniques or standardized protocols for targeted exams where dose is matched to indication/reason for exam; i.e. extremities or head) *Use of iterative reconstruction technique DLP: 465 mGy-cm FINDINGS: The heart is normal in size although there is a large pericardial effusion present. Normal caliber thoracic aorta without CT evidence for dissection. No gross pulmonary arterial filling defect to suggest pulmonary embolus. There are a few mildly prominent but nonpathologically enlarged mediastinal lymph nodes. No axillary lymphadenopathy. Central airways are patent. Lungs are well aerated. Evaluation of lung parenchyma is limited due to respiratory motion artifact, however, no gross lobar consolidation, pleural effusion or pneumothorax is present. There is some suspected dependent atelectasis bilaterally. No suspicious pulmonary nodules. Visualized portion of the upper abdomen demonstrate a small right renal cyst. No acute osseous abnormality. CT/CT angio chest aorta IMPRESSION: 1. No CT evidence for thoracic aortic dissection. 2. Large pericardial effusion. Fleischner guidelines were followed. This Critical Result was discussed with Dr. Aguilar at 9:02 AM on March 02, 2024 and it was ascertained that the content and urgency of the report was understood at the time of direct communication.
--- NOTE | 2024-03-02 07:51 | ECG_ITS ---
Test Reason : CHEST PAIN Blood Pressure : / mmHG Vent. Rate : 123 BPM Atrial Rate : 123 BPM P-R Int : 134 ms QRS Dur : 068 ms QT Int : 296 ms P-R-T Axes : 060 076 064 degrees QTc Int : 423 ms Sinus tachycardia Diffuse ST elevation, could be pericarditis Abnormal ECG When compared with ECG of 02-MAR-2024 07:40, No significant change was found Referred By: Brenda Aguilar Electronically Signed By:DANIELLE MARION
--- NOTE | 2024-03-02 08:09 | ED.CHESTPAIN ---
HPI - Chest Pain General Chief Complaint: Chest Pain Stated Complaint: chest pain Time Seen by Provider: 03/02/24 07:47 Source: patient and old records reviewed Mode of arrival: ambulatory Limitations: no limitations History of Present Illness ED Provider: MARIE YEE narrative: 33 yo male with prior hx of ETOH abuse and cocaine though states he has not used in 2 years who presented here on 02/28 and dx with pericarditis - normal trop at that time HR 104 started on ibuprofen and colchicine though he states he only has been on ibuprofen does not remember colchicine Rx. He comes back as pain became severe last night and it is now radiating and tearing to the back and it hurts to breathe or lay flat. He couldn't sleep or breathe last night and couldn't lay down which came out of nowhere. He state it is much worse. He only drinks energy drinks but denies pre-workout. He is sweaty, holding his chest. He denies any recent travel, procedures, family hx of early CAD or issues. He states he has never had anything like this before. His also reports similar story. No echo done on 02/28. TRANSFER LABS PENDING RESPIRATORY FULL VIRAL PATHOGEN PANEL BLOOD CULTURES TICK BORNE PANEL AND LYME MD complaint: chest pain Onset (ago): day(s) (since ) Timing of current episode: increasing Prior episodes: No Onset: during rest Pain location: substernal and left chest Pain radiation: back Severity: severe Quality: sharp and crushing Relieving factors: nothing Exacerbating factors: inspiration, movement and other (laying down) Associated symptoms: nausea and dyspnea Treatment prior to arrival: none Related Data Home Medications ?Medication ?Instructions ?Recorded ?Confirmed omeprazole 40 mg capsule,delayed 40 mg PO BID 03/22/23 05/09/23 release cyanocobalamin (vitamin B-12) 1,000 mcg PO DAILY 05/09/23 05/09/23 1,000 mcg tablet folic acid 1 mg tablet 1 mg PO DAILY 05/09/23 05/09/23 Previous Rx's ?Medication ?Instructions ?Recorded azithromycin 250 mg tablet See Rx Instructions PO .COMPLEX #6 10/27/23 tabs ibuprofen 600 mg tablet 600 mg PO Q6H PRN pain #30 tabs 10/27/23 colchicine 0.6 mg tablet 0.6 mg PO BID 4 weeks #56 tabs 02/29/24 ibuprofen 400 mg tablet 400 mg PO TID PRN pain #60 tabs 02/29/24 Allergies Allergy/AdvReac Type Severity Reaction Status Date / Time No Known Allergies Allergy Verified 03/02/24 07:51 Review of Systems Review of Systems: Constitutional : No Weight loss, No Fever, No Chills, pos sweats ENT/Mouth : No sore throat, No Rhinorrhea Eyes: No Eye Pain, No Swelling Cardiovascular : pos Chest Pain, pos SOB, no Dyspnea on Exertion, No Orthopnea, No Edema, No Palpitations Respiratory : No Cough, No Sputum Gastrointestinal : pos Nausea, No Vomiting, No Diarrhea, No abdominal Pain, No Hematochezia, No Melena Genitourinary : No Dysuria, No Urinary Frequency Musculoskeletal : No joint pain, No Myalgias, No Joint Swelling Skin : No Skin Lesions, No rash Neuro : No Weakness, No Numbness, No Dizziness, No Headache Psych : No Anxiety/Panic, No Depression All other systems reviewed and are negative [facility] Past Medical History Attestation statement: The following information was validated with the patient. Source: old records reviewed Medical History Alcohol use disorder, moderate, dependence MDD (major depressive disorder), recurrent episode, moderate Nausea with vomiting Alcohol use disorder Anxiety and depression History of seizure due to alcohol withdrawal ETOH abuse Family History Family History Other Diabetes Social History Social History Household Members: Significant Other Housing: Apartment Do you presently have visiting nurse or other home services: No Alcohol intake: former Patient Tobacco Use Status: Former Tobacco user Tobacco use type: Cigarette Smoked in Last 30 Days: No e-Cigarette/Vaping Use: Never Used Second Hand Smoke Exposure: No Use of substances other than those prescribed or required for medical reasons: No Substance Use Type: Marijuana Advance Directives: Yes Advance Directives on File: Yes Advance Directives Date on File: 11/07/22 Do you have a plan to hurt others: No Plan service: No Current occupational status: employed Physical Exam Vital Signs: Vital Signs: Last Vital Signs Temp 99.5 F 03/02/24 14:57 Pulse 105 H 03/02/24 14:57 Resp 18 03/02/24 14:57 BP 106/77 03/02/24 14:57 Pulse Ox 95 03/02/24 14:57 O2 Del Method Room Air 03/02/24 14:57 BMI result Body Mass Index 26.0 Appearance: Alert. Oriented X3. anxious, sweaty, grabbing chest, tears in eyes, moderate acute distress. Eyes: Pupils equal, round and reactive to light. ENT: Pharynx normal. Neck: Normal inspection. Neck supple. no JVD seen CVS: diminished heart sounds tachycardic heart rate and rhythm. Pulses normal. Respiratory: No respiratory distress. Breath sounds normal. Abdomen: Soft and nontender. Skin: Skin warm and diaphoretic. pale skin color. Normal skin turgor. Extremities: No lower extremity edema. Neuro: Oriented X 3. No motor deficit. No sensory deficit. Course Course Course Narrative: spoke to Dr. Michel he notes given concerns about possible RV collapse and acute change in status we do not have IR here to drain if there was acute change would recommend transfer or discussion with [facility]. Reevaluation(s) Reevaluation #1: notified about possible transfer Reevaluation #2: call to [facility] 904am pending call back from Asaf Reevaluation #3: accepted to PCU by Dr. Ron 931am Additional Reevaluation(s): BP stable still having pain but BP stable, mentating well, BCR in digits, HR 110, less diaphoretic, looks better aware of transfer Medications Administered Discontinued Medications Generic Name Dose Route Start Last Admin Trade Name Freq PRN Reason Stop Dose Admin Hydromorphone HCl 1 mg 03/02/24 08:32 03/02/24 08:36 Hydromorphone Hcl 1 Mg/Ml Syringe IVPUSH 03/02/24 08:33 1 mg ONCE ONE Administration Protocol Hydromorphone HCl 0.5 mg 03/02/24 09:21 03/02/24 09:24 Hydromorphone Hcl 0.5 Mg/0.5 Ml Syringe IVPUSH 03/02/24 09:22 0.5 mg ONCE ONE Administration Protocol Hydromorphone HCl 0.5 mg 03/02/24 10:38 03/02/24 13:38 Hydromorphone Hcl 0.5 Mg/0.5 Ml Syringe IVPUSH 0.5 mg Q2H PRN Administration Pain, Moderate(Pain Scale 4-6) Protocol Hydromorphone HCl 1 mg 03/02/24 14:34 03/02/24 14:38 Hydromorphone Hcl 1 Mg/Ml Syringe IVPUSH 03/02/24 14:35 1 mg ONCE ONE Administration Protocol Sodium Chloride 1,000 mls @ 999 mls/hr 03/02/24 08:07 03/02/24 09:26 Ns IV 03/02/24 09:07 Infused .Q1H1M ONE Infusion Sodium Chloride 1,000 mls @ 999 mls/hr 03/02/24 08:32 03/02/24 10:30 Ns IV 03/02/24 09:32 Infused .Q1H1M ONE Infusion Sodium Chloride 1,000 mls @ 100 mls/hr 03/02/24 10:30 03/02/24 10:31 Ns IVCONT 100 mls/hr .Q10H EL Administration Iohexol 85 ml 03/02/24 08:29 03/02/24 08:30 Iohexol 350 Mg/Ml 100 Ml Infus..Btl IV 03/02/24 08:30 85 ml ONCE ONE Administration Ketorolac Tromethamine 15 mg 03/02/24 10:39 03/02/24 10:50 Ketorolac Tromethamine 15 Mg/Ml Vial IVPUSH 03/02/24 10:40 15 mg ONCE ONE Administration Morphine Sulfate 4 mg 03/02/24 08:07 03/02/24 08:12 Morphine Sulfate 4 Mg/Ml Cartridge IVPUSH 03/02/24 08:08 4 mg ONCE ONE Administration Protocol Morphine Sulfate 4 mg 03/02/24 08:11 03/02/24 08:20 Morphine Sulfate 4 Mg/Ml Cartridge IVPUSH 03/02/24 08:12 4 mg ONCE ONE Administration Protocol Ondansetron HCl 4 mg 03/02/24 08:07 03/02/24 08:12 Ondansetron Hcl 4 Mg/2 Ml Vial IVPUSH 03/02/24 08:08 4 mg ONCE ONE Administration Procedures Procedure Narrative Procedure Narrative: bedside ECHO parasternal / subxiphoid view there is large pericardial effusion no tamponade on parasternal but significant movement and patient was writhing but on apical view there is concern for possible tamponade physiology with ?RV collapse noted Medical Decision Making Medical Decision Making MDM Narrative: 33 yo male with prior ETOH abuse and cocaine abuse reports no use in 1 year here with c/o worsening chest pain after dx of pericarditis on 02/28 he is pale, diaphoretic has diffuse MOOKIE on EKG and moderate effusion on bedside ECHO - there is some concern for tamponade physiology but limited due to patient movement and pain. Stat IV morphine and IVF, labs, CTA protocol for dissection given change in pain to make sure that this isn't hemopericardium, will consult cardiology - could be pericarditis with effusion vs dissection with effusion. IVF x 2L ordered BP currently stable. Will speak to as well. Differential Diagnosis Differential Diagnoses: The differential diagnosis associated with the presentation includes myopericarditis or pericarditis with effusion vs dissection with effusion. Admission/Observation Consideration of admission/observation: Escalation of care including admission/observation considered anticipate admission vs transfer given concern for effusion and need for possible drainage given his acute change in clinical reports of pain and size of effusion Consult Healthcare Provider Management of the patient was discussed with: Application Penetration Tester Anand recommends drainage for IR Lab Data [facility] Lab Attestation statement: I reviewed the patient's lab results. 03/02/24 08:04 03/02/24 08:04 Labs: Lab Results 03/02/24 03/02/24 03/02/24 Range/Units 08:04 08:46 08:50 WBC 22.3 H (4.8-10.8) X10*3/uL RBC 4.70 (4.60-5.80) X10*6/uL Hgb 14.1 (14.0-18.0) g/dl Hct 40.4 L (42.0-52.0) % MCV 86.0 (80.0-98.0) fL MCH 30.0 (27.0-33.0) pg MCHC 34.9 (31.0-36.0) g/dl RDW 13.6 (11.0-16.0) % Plt Count 361 (160-400) X10*3/uL MPV 9.1 L (9.4-12.4) fL Immature Gran % (Auto) 0.5 H (0.0-0.4) % Neut % (Auto) 79.2 H (45-73) % Lymph % (Auto) 8.0 L (20-40) % [place] % (Auto) 12.1 H (2-11) % Eos % (Auto) 0.0 (0-4) % Baso % (Auto) 0.2 (0-2) % Lymph # (Auto) 1.8 (1.2-4.9) X10*3/uL [place] # (Auto) 2.7 H (0.1-1.2) X10*3/uL Eos # (Auto) 0.0 (0.0-0.4) X10*3/uL Baso # (Auto) 0.1 (0.0-0.2) X10*3/uL Abs Immat Gran (auto) 0.11 H (0.00-0.03) X10*3/uL Absolute Neuts (auto) 17.7 H (2.0-8.3) x10*3/uL Absolute Nucleated RBC 0.000 (0.0-0.012) X10*3/uL Nucleated RBC % (auto) 0.0 (0.0-0.2) /100WBC Smear Tech's Comments VERIFIED ESR 34 H (0-15) MM/HR PT 14.6 H (11.1-13.3) SEC INR 1.2 H (0.9-1.1) Sodium 135 (135-145) mmol/L Potassium 4.5 (3.3-5.1) mmol/L Chloride 103 (96-108) mmol/L Carbon Dioxide 20 L (22-29) mmol/L Anion Gap 17 (12-20) BUN 12 (9-16) mg/dL Creatinine 0.83 (0.5-1.4) mg/dL Estim Creat Clear Calc 123.6 Estimated GFR > 60 Random Glucose 143 H (60-115) mg/dL Lactic Acid 2.9 H* (0.5-2.0) mmol/L Lactic Acid F/U @ 2Hr (0.5-2.0) mmol/L Calcium 9.7 D (8.4-10.2) mg/dL Total Bilirubin 1.4 H (0.0-1.0) mg/dL AST 14 (5-37) U/L ALT 11 (0-40) U/L Alkaline Phosphatase 58 (39-117) U/L Troponin I High Sens 5.2 D (<3.5-35.0) ng/L C-Reactive Protein 33.58 H (< or = 0.50) mg/dL C-React Prot High Sens Cancelled Total Protein 7.3 (6.5-8.0) g/dL Albumin 4.2 (3.5-5.0) g/dL Respiratory Panel Edwards See Note Adenovirus (Rapid PCR) Not Detected (Not Detect.) B.pert (TEM-PCR) Not Detected (Not Detect.) B.parapertussis DNA PCR Not Detected (Not Detect.) C. pneumoniae DNA (PCR) Not Detected (Not Detect.) Coronavirus OC43 (PCR) Not Detected (Not Detect.) Coronavirus HKU1 (PCR) Not Detected (Not Detect.) Coronavirus 229E (PCR) Not Detected (Not Detect.) COVID-19 (ELIE) (Negative) COVID-19 Clin Com Coronavirus NL63 (PCR) Not Detected (Not Detect.) Human Metapneumovir PCR Not Detected (Not Detect.) Influenza A (RT-PCR) Not Detected (Not Detect.) Influenza B (RT-PCR) Not Detected (Not Detect.) M. pneumoniae (PCR) Not Detected (Not Detect.) Parainfluenza 1 (PCR) Not Detected (Not Detect.) Parainfluenza 2 (PCR) Not Detected (Not Detect.) Parainfluenza 3 (PCR) Not Detected (Not Detect.) Parainfluenza 4 (PCR) Not Detected (Not Detect.) RSV (PCR) Not Detected (Not Detect.) Entero/Rhino (PCR) Not Detected (Not Detect.) SARS-CoV-2 RNA (RT-PCR) Not Detected (Not Detect.) 03/02/24 03/02/24 Range/Units 09:16 11:32 WBC (4.8-10.8) X10*3/uL RBC (4.60-5.80) X10*6/uL Hgb (14.0-18.0) g/dl Hct (42.0-52.0) % MCV (80.0-98.0) fL MCH (27.0-33.0) pg MCHC (31.0-36.0) g/dl RDW (11.0-16.0) % Plt Count (160-400) X10*3/uL MPV (9.4-12.4) fL Immature Gran % (Auto) (0.0-0.4) % Neut % (Auto) (45-73) % Lymph % (Auto) (20-40) % [place] % (Auto) (2-11) % Eos % (Auto) (0-4) % Baso % (Auto) (0-2) % Lymph # (Auto) (1.2-4.9) X10*3/uL [place] # (Auto) (0.1-1.2) X10*3/uL Eos # (Auto) (0.0-0.4) X10*3/uL Baso # (Auto) (0.0-0.2) X10*3/uL Abs Immat Gran (auto) (0.00-0.03) X10*3/uL Absolute Neuts (auto) (2.0-8.3) x10*3/uL Absolute Nucleated RBC (0.0-0.012) X10*3/uL Nucleated RBC % (auto) (0.0-0.2) /100WBC Smear Tech's Comments ESR (0-15) MM/HR PT (11.1-13.3) SEC INR (0.9-1.1) Sodium (135-145) mmol/L Potassium (3.3-5.1) mmol/L Chloride (96-108) mmol/L Carbon Dioxide (22-29) mmol/L Anion Gap (12-20) BUN (9-16) mg/dL Creatinine (0.5-1.4) mg/dL Estim Creat Clear Calc Estimated GFR Random Glucose (60-115) mg/dL Lactic Acid (0.5-2.0) mmol/L Lactic Acid F/U @ 2Hr 1.0 (0.5-2.0) mmol/L Calcium (8.4-10.2) mg/dL Total Bilirubin (0.0-1.0) mg/dL AST (5-37) U/L ALT (0-40) U/L Alkaline Phosphatase (39-117) U/L Troponin I High Sens (<3.5-35.0) ng/L C-Reactive Protein (< or = 0.50) mg/dL C-React Prot High Sens Total Protein (6.5-8.0) g/dL Albumin (3.5-5.0) g/dL Respiratory Panel Edwards Adenovirus (Rapid PCR) (Not Detect.) B.pert (TEM-PCR) (Not Detect.) B.parapertussis DNA PCR (Not Detect.) C. pneumoniae DNA (PCR) (Not Detect.) Coronavirus OC43 (PCR) (Not Detect.) Coronavirus HKU1 (PCR) (Not Detect.) Coronavirus 229E (PCR) (Not Detect.) COVID-19 (ELIE) Negative (Negative) COVID-19 Clin Com See Note Coronavirus NL63 (PCR) (Not Detect.) Human Metapneumovir PCR (Not Detect.) Influenza A (RT-PCR) (Not Detect.) Influenza B (RT-PCR) (Not Detect.) M. pneumoniae (PCR) (Not Detect.) Parainfluenza 1 (PCR) (Not Detect.) Parainfluenza 2 (PCR) (Not Detect.) Parainfluenza 3 (PCR) (Not Detect.) Parainfluenza 4 (PCR) (Not Detect.) RSV (PCR) (Not Detect.) Entero/Rhino (PCR) (Not Detect.) SARS-CoV-2 RNA (RT-PCR) (Not Detect.) Independent Interpretation I performed an independent interpretation of an: EKG, Ultrasound and CT Scan Interpretation: Rate: 146 Rhythm: sinus tachy [place]: normal Normal P waves. Normal MARKUS. Normal QRS complex. ST T wave : artifact but diffuse MOOKIE no reciprocal changes qTC: 423 prior studies: changed The study has been interpreted contemporaneously by me. . EKG #2 Rate: 123 Rhythm: sinus tach [place]: normal Normal P waves. Normal MARKUS. Normal QRS complex. ST T wave : diffuse MOOKIE, no reciprocal changes qTC: 423 prior studies: no change from prior The study has been interpreted contemporaneously by me. FINDINGS: The heart is normal in size although there is a large pericardial effusion present. Normal caliber thoracic aorta without CT evidence for dissection. No gross pulmonary arterial filling defect to suggest pulmonary embolus. There are a few mildly prominent but nonpathologically enlarged mediastinal lymph nodes. No axillary lymphadenopathy. Central airways are patent. Lungs are well aerated. Evaluation of lung parenchyma is limited due to respiratory motion artifact, however, no gross lobar consolidation, pleural effusion or pneumothorax is present. There is some suspected dependent atelectasis bilaterally. No suspicious pulmonary nodules. Visualized portion of the upper abdomen demonstrate a small right renal cyst. No acute osseous abnormality. CT/CT angio chest aorta IMPRESSION: 1. No CT evidence for thoracic aortic dissection. 2. Large pericardial effusion. Fleischner guidelines were followed. Radiology Impression Discussion of test interpretation with radiology: I discussed test interpretation with the radiologist and I have reviewed the radiologist's reading. Radiologist Impression: 9am call from radiology aorta - large pericardial effusion, fluid looks simple aorta is fine Independent Historian Clinical information obtained from an independent historian. History obtained from or confirmed by: Spouse External Record Review External record reviewed: Inpatient record Critical Care Time Critical Care Time Critical Care Time: Yes Total Critical Care Time: 60 Attestation: repeat bedside assessments, review of records, consult, STAT CTA, IVF x 2L, repeat IV morphine with improvement in pain I attest to this time spent taking care of the patient Discharge Plan Discharge Clinical Impression: Acute pericardial effusion Chest pain Qualifiers: Chest pain type: precordial pain Qualified Code(s): R07.2 - Precordial pain Pericarditis Qualifiers: Pericarditis type: unspecified type Chronicity: acute Qualified Code(s): I30.9 - Acute pericarditis, unspecified Patient Disposition: [facility] Transfer Details: [facility] Prescriptions: No Action omeprazole 40 mg capsule,delayed release(DR/EC) 40 mg PO BID cyanocobalamin (vitamin B-12) 1,000 mcg Tablet 1,000 mcg PO DAILY folic acid 1 mg tablet 1 mg PO DAILY azithromycin 250 mg tablet See Rx Instructions PO .COMPLEX Qty: 6 0RF Rx Instructions: For 250 mg dose pack: take 500 mg today (day 1), then 250 mg for 4 days (days 2-5) ibuprofen 600 mg tablet 600 mg PO Q6H PRN (Reason: pain) Qty: 30 0RF colchicine 0.6 mg tablet 0.6 mg PO BID 28 Days Qty: 56 0RF ibuprofen 400 mg tablet 400 mg PO TID PRN (Reason: pain) Qty: 60 0RF Referrals: Do Moody INDUSTRIAL PRODUCTION MANAGER [Primary Care Provider] - Interventions: Acute Care Transfer Worksheet (ED) Last Done: 03/02/24 14:57 Discharge Date/Time: 03/02/24 14:57 Print Language: Kiswahili
[2024-03-02] MEDS: 0.9 % Sodium Chloride 1,000 ML 999 ML IV ×2 (08:11→08:49)
[2024-03-02] MEDS: Morphine Sulfate 4 MG/ML CARTRIDGE IVPUSH ×2 (08:12→08:20)
[2024-03-02] MEDS: ondansetron HCL 4 MG/2 ML VIAL IVPUSH (08:12)
[2024-03-02 08:14] LABS: Basophils Absolute Auto 0.1 X10*3/uL (0.0-0.2); Basophils Percent Auto 0.2 % (0-2); Hematocrit 40.4 % (42.0-52.0); Hemoglobin 14.1 g/dl (14.0-18.0); Imm Gran Abs Auto 0.11 X10*3/uL (0.00-0.03); Imm Gran Pct Auto 0.5 % (0.0-0.4); Lymphocytes Absolute Auto 1.8 X10*3/uL (1.2-4.9); MANUAL DIFF FLAG SCAN; Mean Corpuscular HGB Conc 34.9 g/dl (31.0-36.0); Mean Platelet Volume 9.1 fL (9.4-12.4); Monocytes Absolute Auto 2.7 X10*3/uL (0.1-1.2); Monocytes Percent Auto 12.1 % (2-11); Neutrophils Absolute Auto 17.7 x10*3/uL (2.0-8.3); Neutrophils Percent Auto 79.2 % (45-73); Platelet Count 361 X10*3/uL (160-400); Red Cell Distribution Width 13.6 % (11.0-16.0); SCAN SMEAR FLAG 1; White Blood Count 22.3 X10*3/uL (4.8-10.8)
[2024-03-02 08:18] LABS: INTERNATIONAL NORM RATIO 1.2 (0.9-1.1); Prothrombin Time 14.6 SEC (11.1-13.3)
--- NOTE | 2024-03-02 08:19 | PC.NURSE ---
Addendum entered by Sobai Monk RN 03/02/24 08:20: patient endorsing 10/10 chest pain, noted to be tachycardic in the 120s, repeat EKG completed at bedside per MD Jeff MD at bedside for bedside echo, 18g PIV placed in LAC and blood work drawn by this RN and sent to lab. patient medicated per verbal order. second PIV placed in RAC. pateint immediately to CT scan per MD Original Note: patient arrives through external triage with cc of chest pain,patient seen and discharged from this ED recently with pericarditis, states it went away a little bit but since yesterday it has gotten exceedingly worse. patient arrives visably uncomfortable, unable to take a deep breath or lay flat, patient endorsing 10;
[2024-03-02 08:30] LABS: Alanine Aminotransferase 11 U/L (0-40); Albumin Level 4.2 g/dL (3.5-5.0); Alkaline Phosphatase 58 U/L (39-117); Anion Gap 17 (12-20); Aspartate Amino Transferase 14 U/L (5-37); Bilirubin Total 1.4 mg/dL (0.0-1.0); Blood Urea Nitrogen 12 mg/dL (9-16); Calcium 9.7 mg/dL (8.4-10.2); Carbon Dioxide 20 mmol/L (22-29); Chloride 103 mmol/L (96-108); Creatinine Clr Calc Pharmacy 123.6; Estimated Glomerular Filt Rate > 60; Glucose Random 143 mg/dL (60-115); Potassium 4.5 mmol/L (3.3-5.1); Sodium 135 mmol/L (135-145); Total Protein 7.3 g/dL (6.5-8.0)
[2024-03-02] MEDS: iohexoL 350 MG/ML 100 ML INFUS..BTL 85 ML IV (08:30)
[2024-03-02] MEDS: HYDROmorphone HCl 1 MG/ML SYRINGE IVPUSH ×2 (08:36→14:38)
[2024-03-02 08:37] LABS: Troponin-I High Sensitivity 5.2 ng/L (<3.5-35.0)
[2024-03-02 08:38] LABS: SLIDE REVIEW VERIFIED
[2024-03-02 09:08] LABS: Erythrocyte Sedimentation Rate 34 MM/HR (0-15)
[2024-03-02 09:21] LABS: Lactic Acid 2.9 mmol/L (0.5-2.0)
[2024-03-02] MEDS: HYDROmorphone HCl 0.5 MG/0.5 ML SYRINGE IVPUSH ×3 (09:24→13:38)
[2024-03-02 09:58] LABS: COVID-19 Test Negative (Negative); IDNOW Serial# 08D9AD1C
[2024-03-02 10:14] LABS: Adenovirus PCR Not Detected (Not Detect.); Bordetella parapertussis PCR Not Detected (Not Detect.); Bordetella pertussis PCR Not Detected (Not Detect.); Chlamydia pneumoniae PCR Not Detected (Not Detect.); Coronavirus 229E PCR Not Detected (Not Detect.); Coronavirus HKU1 PCR Not Detected (Not Detect.); Coronavirus NL63 PCR Not Detected (Not Detect.); Coronavirus OC43 PCR Not Detected (Not Detect.); Human metapneumovirus PCR Not Detected (Not Detect.); Influenza A PCR Not Detected (Not Detect.); Influenza B PCR Not Detected (Not Detect.); Mycoplasma pneumoniae PCR Not Detected (Not Detect.); Parainfluenza 1 PCR Not Detected (Not Detect.); Parainfluenza 2 PCR Not Detected (Not Detect.); Parainfluenza 3 PCR Not Detected (Not Detect.); Parainfluenza 4 PCR Not Detected (Not Detect.); RSV PCR Not Detected (Not Detect.); Rhino/Enterovirus PCR Not Detected (Not Detect.)
[2024-03-02] MEDS: 0.9 % Sodium Chloride 1,000 ML 100 ML IVCONT (10:31)
[2024-03-02] MEDS: Ketorolac Tromethamine 15 MG/ML VIAL IVPUSH (10:50)
[2024-03-02 10:51] LABS: Reflex Lactate? Lactic Acid Added
[2024-03-02 10:51] LABS: SARS-CoV-2 PCR Not Detected (Not Detect.)
[2024-03-02 15:06] LABS: C Reactive Protein 33.58 mg/dL (< or = 0.50)
[2024-03-04 17:14] LABS: Lyme Abs Screen <0.90 index
[2024-03-04 18:04] LABS: A. Phagocytphilium DNA,RT-PCR NOT DETECTED (NOT DETECTED); Babesia Microti DNA, RT-PCR NOT DETECTED (NOT DETECTED); Borrelia Miyamotoi,DNA RT-PCR NOT DETECTED (NOT DETECTED); E.Chaffeensis DNA RT-PCR NOT DETECTED (NOT DETECTED); Lyme(Borrelia ssp)DNA RT-PCR NOT DETECTED (NOT DETECTED)
== END 2024-03-02 14:57 | disposition short-term general hospital (02) ==
PROVIDERS: Emergency Provider Emergency Medicine; PCP Registered Nurse
DX: I30.9 Acute pericarditis, unspecified (principal); R07.2 Precordial pain; R06.02 Shortness of breath; R00.0 Tachycardia, unspecified; F10.20 Alcohol dependence, uncomplicated; F14.10 Cocaine abuse, uncomplicated; F33.9 Major depressive disorder, recurrent, unspecified; Z87.891 Personal history of nicotine dependence; Z79.899 Other long term (current) drug therapy; Z11.52 Encounter for screening for COVID-19
CPT/HCPCS: 36415; 71275; 80053; 83605; 84484; 85025; 85610; 85652; 86140; 86141; 86617; 86618; 87040; 87468; 87469; 87478; 87484; 87633; 87635; 87798; 93005; 96361; 96374; 96375; 96376; 99285; 99291; J1170; J1885; J2270; J2405; Q9967

== ENCOUNTER → 2024-03-02 07:40 | Outpatient (BNV) | payer OTHER, SELFPAY | PROVIDERS: Emergency Provider Emergency Medicine; PCP Registered Nurse; Visit Provider Internal Medicine | DX: R94.31 Abnormal electrocardiogram [ECG] [EKG] (principal) | CPT/HCPCS: 93010 ==

== ENCOUNTER 2024-03-18 19:57 | Emergency (ER) | payer OTHER, SELFPAY ==
--- NOTE | 2024-03-18 | ECG_ITS ---
Test Reason : chest pain Blood Pressure : / mmHG Vent. Rate : 100 BPM Atrial Rate : 100 BPM P-R Int : 144 ms QRS Dur : 080 ms QT Int : 316 ms P-R-T Axes : 069 071 060 degrees QTc Int : 407 ms Normal sinus rhythm Nonspecific ST and T wave abnormality Abnormal ECG When compared with ECG of 02-MAR-2024 07:55, ST less elevated in Inferior leads and anterolateral leads Referred By: Generic ED Physician Electronically Signed By:DANIELLE MARION
== END 2024-03-18 21:04 | disposition left against medical advice (07) ==
PROVIDERS: Emergency Provider Emergency Medicine
DX: R07.89 Other chest pain (principal)
CPT/HCPCS: 93005; 99281; 99282

== ENCOUNTER → 2024-03-18 19:58 | Outpatient (BNV) | payer OTHER, SELFPAY | PROVIDERS: Emergency Provider Emergency Medicine; Visit Provider Internal Medicine | DX: R94.31 Abnormal electrocardiogram [ECG] [EKG] (principal) | CPT/HCPCS: 93010 ==

== ENCOUNTER 2024-05-15 02:06 | Inpatient (IN) | payer OTHER, SELFPAY ==
[2024-05-15] VITALS (8 sets, daily range): BP systolic 109–139; BP diastolic 67–91; PULSE 60–125; RESP 16–24; TEMP 36–37.5; O2SAT 96–98; BMI 27.5
--- NOTE | 2024-05-15 | ECG_ITS ---
Test Reason : CHEST PAIN Blood Pressure : / mmHG Vent. Rate : 120 BPM Atrial Rate : 120 BPM P-R Int : 150 ms QRS Dur : 078 ms QT Int : 302 ms P-R-T Axes : 078 070 017 degrees QTc Int : 426 ms Sinus tachycardia Nonspecific T wave abnormality Abnormal ECG When compared with ECG of 18-MAR-2024 19:58, No significant change was found Referred By: Generic ED Physician Electronically Signed By:CHAO RUIZ MD
--- NOTE | ~2024-05-15 | CT_ITS ---
EXAMINATION: CT CHEST WITHOUT CONTRAST CLINICAL INFORMATION: Rule out paracardial effusion. COMPARISON: Chest radiograph 05/15/2024. TECHNIQUE: Multidetector volumetric CT imaging of the chest was done. Axial MIP volume rendering provided. Sagittal and coronal reformatted images were obtained. This CT examination was performed using dose optimization techniques as appropriate, variously including the following: *Automated exposure control *Adjustment of mA and/or kV according to patient size (this includes techniques or standardized protocols for targeted exams where dose is matched to indication/reason for exam; i.e. extremities or head) *Use of iterative reconstruction technique DLP: 279 mGy-cm FINDINGS: LUNGS: The lungs are clear with no evidence of inflammation or nodules. MEDIASTINUM: Small pericardial effusion is present measuring approximately 5 mm in maximum width. (0 Hounsfield units). The heart size is normal. No coronary artery calcific atherosclerotic plaques identified. No mediastinal lymphadenopathy. Normal appearance of the thoracic aorta. CORONARY ARTERY CALCIFICATION: None visualized on this study. PLEURA: Trace left pleural effusion. AXILLA: No lymphadenopathy. UPPER ABDOMEN: Unremarkable. OSSEOUS STRUCTURES: Unremarkable. CT/CT chest wo IV con IMPRESSION: *Small pericardial effusion. A low-density (0 Hounsfield unit) pericardial effusion measures 5 mm in width and has an estimated volume of approximately 100 mL. *Small left pleural effusion. Electronically signed by: Sukhwinder Villegas MD 05/15/2024 05:57 AM EDT
--- NOTE | ~2024-05-15 | XR_ITS ---
EXAMINATION: XR CHEST CLINICAL INFORMATION: Chest pain COMPARISON: None available. TECHNIQUE: Frontal view of the chest was obtained. FINDINGS: Normal appearance of the cardiomediastinal structures. No effusions or pneumothoraces. No focal pulmonary consolidation. Normal pattern of pulmonary vasculature. No displaced rib fractures identified. XR/XR chest 1V IMPRESSION: Normal chest. Electronically signed by: Sukhwinder Villegas MD 05/15/2024 04:10 AM EDT
[2024-05-15 02:33] LABS: Basophils Absolute Auto 0.1 X10*3/uL (0.0-0.2); Basophils Percent Auto 0.3 % (0-2); Eosinophils Absolute Auto 0.1 X10*3/uL (0.0-0.4); Eosinophils Percent Auto 0.2 % (0-4); Hematocrit 38.6 % (42.0-52.0); Hemoglobin 13.3 g/dl (14.0-18.0); Imm Gran Abs Auto 0.09 X10*3/uL (0.00-0.03); Imm Gran Pct Auto 0.4 % (0.0-0.4); Lymphocytes Absolute Auto 3.4 X10*3/uL (1.2-4.9); Lymphocytes Percent Auto 16.7 % (20-40); MANUAL DIFF FLAG SCAN; Mean Corpuscular HGB Conc 34.5 g/dl (31.0-36.0); Mean Corpuscular Hemoglobin 30.1 pg (27.0-33.0); Mean Corpuscular Volume 87.3 fL (80.0-98.0); Mean Platelet Volume 8.6 fL (9.4-12.4); Monocytes Absolute Auto 2.7 X10*3/uL (0.1-1.2); Monocytes Percent Auto 13.4 % (2-11); Neutrophils Absolute Auto 13.9 x10*3/uL (2.0-8.3); Platelet Count 402 X10*3/uL (160-400); Red Blood Count 4.42 X10*6/uL (4.60-5.80); SCAN SMEAR FLAG 1; White Blood Count 20.2 X10*3/uL (4.8-10.8)
[2024-05-15 02:48] LABS: Alanine Aminotransferase 13 U/L (0-40); Albumin Level 4.2 g/dL (3.5-5.0); Alkaline Phosphatase 53 U/L (39-117); Anion Gap 15 (12-20); Aspartate Amino Transferase 15 U/L (5-37); Bilirubin Total 0.8 mg/dL (0.0-1.0); Blood Urea Nitrogen 6 mg/dL (9-16); Calcium 9.3 mg/dL (8.4-10.2); Carbon Dioxide 21 mmol/L (22-29); Chloride 107 mmol/L (96-108); Creatinine Clr Calc Pharmacy 143.9; Estimated Glomerular Filt Rate > 60; Glucose Random 104 mg/dL (60-115); Potassium 3.6 mmol/L (3.3-5.1); Sodium 139 mmol/L (135-145); Total Protein 7.1 g/dL (6.5-8.0)
[2024-05-15 02:52] LABS: SLIDE REVIEW VERIFIED
[2024-05-15 03:03] LABS: Troponin-I High Sensitivity < 2.7 ng/L (<3.5-35.0)
[2024-05-15 03:09] LABS: Influenza A PCR NEGATIVE (Negative); Influenza B PCR NEGATIVE (Negative); Resp Syncy Virus RNA Qual PCR NEGATIVE (Negative); SARS COV2 PCR INHOUSE NEGATIVE (Negative)
--- NOTE | 2024-05-15 04:46 | PC.NURSE ---
Pt reports chest pressure and pain that radiates from left chest to left shoulder and neck back to middle chest and to the right chest that began last week. PT went to [facility] Monday but was discharged and told to follow up with post splitter. Since pt has been taking about 6-8 200mg or 325mg pills everyday. since 5 pm 05/14/24 pt has taken roughly 1850mg of ibuprofen. Pt now endorsing abdominal pain as well. PT states he has a history of pericarditis and notes that the pain feels similar to post procedural pain from the pericardiocentesis he had in February. PT placed on monitor Sinus tachy. Chest xr negative. Plan of care ongoing.
--- NOTE | 2024-05-15 04:56 | PC.NURSE ---
discussed ibuprofen use and previous diagnostic tests for previous diagnosis with provider. Verbal read back order for add on lab tests placed. Provider to review and order new imaging if needed. Plan of care ongoing
--- NOTE | 2024-05-15 05:07 | PC.NURSE ---
verbal read back order placed for BNP
[2024-05-15 05:13] LABS: Bilirubin Direct 0.3 mg/dL (0.0-0.5); C Reactive Protein 16.19 mg/dL (< or = 0.50); Lipase 13 U/L (8-78)
[2024-05-15] MEDS: Colchicine 0.6 MG TABLET PO ×2 (05:35→21:11)
[2024-05-15] MEDS: Morphine Sulfate 4 MG/ML CARTRIDGE IVPUSH (05:36)
[2024-05-15] MEDS: Aspirin Enteric Coated 325 MG TABLET.DR 650 MG PO (05:36)
[2024-05-15 05:39] LABS: Erythrocyte Sedimentation Rate 23 MM/HR (0-15)
[2024-05-15 06:19] LABS: B Type Natriuretic Peptide 24 pg/mL (<100)
--- NOTE | 2024-05-15 06:55 | ED_ITS ---
HPI - Chest Pain General Chief Complaint: Chest Pain Stated Complaint: pressure in chest- history pericarditis Time Seen by Provider: 05/15/24 04:58 Source: patient Mode of arrival: ambulatory Limitations: no limitations History of Present Illness ED Provider: Dr. Hafsa Saini HPI narrative: Patient comes to the emergency room complaining of 1 week of chest pain. Patient states that approximately 6 days ago, patient went to [facility] because he had chest pain. According to the patient, they did a bedside ultrasound/echocardiogram he was told that there was no fluid around his heart. Patient states that he has history of pericarditis which needed pericardiocentesis in the February of 2024. Patient states that the pain is similar. Related Data Home Medications ?Medication ?Instructions ?Recorded ?Confirmed omeprazole 40 mg capsule,delayed 40 mg PO BID 03/22/23 05/09/23 release cyanocobalamin (vitamin B-12) 1,000 mcg PO DAILY 05/09/23 05/09/23 1,000 mcg tablet folic acid 1 mg tablet 1 mg PO DAILY 05/09/23 05/09/23 Previous Rx's ?Medication ?Instructions ?Recorded azithromycin 250 mg tablet See Rx Instructions PO .COMPLEX #6 10/27/23 tabs ibuprofen 600 mg tablet 600 mg PO Q6H PRN pain #30 tabs 10/27/23 colchicine 0.6 mg tablet 0.6 mg PO BID 4 weeks #56 tabs 02/29/24 ibuprofen 400 mg tablet 400 mg PO TID PRN pain #60 tabs 02/29/24 Allergies Allergy/AdvReac Type Severity Reaction Status Date / Time No Known Allergies Allergy Verified 05/15/24 02:15 Review of Systems 2 Review of Systems: Constitutional : No Weight loss, No Fever, No Chills, No Night Sweats, No Fatigue, No Malaise ENT/Mouth : No Hearing loss, No Ear Pain, No Nasal Congestion, No Sinus Pain, No Hoarseness, No sore throat, No Rhinorrhea, No Swallowing Difficulty Eyes: No Eye Pain, No Swelling, No Redness, No Foreign Body, No Discharge, No Vision Changes Cardiovascular : Complaining of sharp chest pain worse with inspiration, No SOB, No Dyspnea on Exertion, No Orthopnea, No Edema, No Palpitations Respiratory : No Cough, No Sputum, No Wheezing, No Smoke Exposure, No Dyspnea Gastrointestinal : No Nausea, No Vomiting, No Diarrhea, No Constipation, No abdominal Pain, No Hematochezia, No Melena Genitourinary : no irregular bleeding, No Dysuria, No Urinary Frequency, No Hematuria, No Urinary Incontinence, No Urgency, No Flank Pain, No Urinary Flow Changes, No Hesitancy Musculoskeletal : No joint pain, No Myalgias, No Joint Swelling Skin : No Skin Lesions, No rash Neuro : No Weakness, No Numbness, No Paresthesias, No Loss of Consciousness, No Dizziness, No Headache Psych : No Anxiety/Panic, No Depression, No SI/HI/AH/VH, No Social Issues, Heme/Lymph: No Bruising, No Bleeding,No Lymphadenopathy Endocrine : No Polyuria, No Polydipsia, No Temperature Intolerance COUNT INCLUDES THE [facility] Past Medical History Medical History Pericardial effusion Alcohol use disorder, moderate, dependence MDD (major depressive disorder), recurrent episode, moderate Nausea with vomiting Alcohol use disorder Anxiety and depression History of seizure due to alcohol withdrawal ETOH abuse Family History Family History Other Diabetes Social History Social History Household Members: Significant Other Housing: Apartment Do you presently have visiting nurse or other home services: No Alcohol intake: former Patient Tobacco Use Status: Former Tobacco user Tobacco use type: Cigarette Smoked in Last 30 Days: No e-Cigarette/Vaping Use: Never Used Second Hand Smoke Exposure: No Use of substances other than those prescribed or required for medical reasons: Yes Substance Use Type: Marijuana Substance Use Frequency: Daily Advance Directives: Yes Advance Directives on File: Yes Advance Directives Date on File: 11/07/22 Do you have a plan to hurt others: No Plan service: No Current occupational status: employed Physical Exam 2 Vital Signs: Vital Signs: Last Vital Signs Temp 98.0 F 05/15/24 05:30 Pulse 101 H 05/15/24 05:30 Resp 16 05/15/24 05:30 BP 117/79 05/15/24 05:30 Pulse Ox 96 05/15/24 05:30 O2 Del Method Room Air 05/15/24 05:30 BMI result Body Mass Index 27.5 Const: Other: Appearance: Alert. Oriented X3. Patient looks uncomfortable Eyes: Pupils equal, round and reactive to light. ENT: Pharynx normal. Neck: Normal inspection. Neck supple. No lymph nodes noted. No crepitus CVS: Tachycardic, heart rate approximately 110. Pulses normal. Normal S1 and S2. Bedside ultrasound shows a small pericardial effusion Respiratory: No respiratory distress. Breath sounds normal. No Wheezing. No rales Abdomen: Soft and nontender. No rigidity. No distention. Skin: Skin warm and dry. Normal skin color. Normal skin turgor. Extremities: No lower extremity edema. No Lacerations. No Rash Neuro: Oriented X 3. No motor deficit. No sensory deficit. Moving all extremities. No slurred speech. CN 2 through 12 grossly intact Psych: calm, cooperative, normal affect Medications Administered Discontinued Medications Generic Name Dose Route Start Last Admin Trade Name Ramírez PRN Reason Stop Dose Admin Aspirin 650 mg 05/15/24 05:21 05/15/24 05:36 Aspirin Enteric Coated 325 Mg Tablet.Dr PO 05/15/24 05:22 650 mg ONCE ONE Administration Colchicine 0.6 mg 05/15/24 05:21 05/15/24 05:35 Colchicine 0.6 Mg Tablet PO 05/15/24 05:22 0.6 mg ONCE ONE Administration Morphine Sulfate 4 mg 05/15/24 05:22 05/15/24 05:36 Morphine Sulfate 4 Mg/Ml Cartridge IVPUSH 05/15/24 05:23 4 mg ONCE ONE Administration Protocol Medical Decision Making Medical Decision Making [facility] Narrative: My interpretation of labs: Patient's white blood cell count 20.2, ESR 23, chemistry within normal limits, troponin negative, CRP 16.19, lipase normal -my interpretation of CT scan of the chest: Small pericardial effusion, small pleural effusion on the left -patient received aspirin and colchicine, morphine and fentanyl for pain -I discussed the patient EKG and radiology findings with Dr. Lantigua from Cardiology, we can admit the patient here. -cardiology recommendations: Indomethacin 50 mg b.i.d. and colchicine 0.6 mg b.i.d. with GI prophylaxis -I discussed the patient with Dr. Wright from Internal Medicine, patient being admitted. Differential Diagnosis Differential Diagnoses: The differential diagnosis associated with the presentation includes (ACS, pericardial effusion, pleurisy) Admission/Observation Consideration of admission/observation: Escalation of care including admission/observation considered Consult Healthcare Provider Management of the patient was discussed with: Hospitalist and Surgery Teacher Lab Data [facility] Lab Attestation statement: I reviewed the patient's lab results. 05/15/24 02:25 05/15/24 02:25 Labs: Lab Results 05/15/24 Range/Units 02:25 WBC 20.2 H (4.8-10.8) X10*3/uL RBC 4.42 L (4.60-5.80) X10*6/uL Hgb 13.3 L (14.0-18.0) g/dl Hct 38.6 L (42.0-52.0) % MCV 87.3 (80.0-98.0) fL MCH 30.1 (27.0-33.0) pg MCHC 34.5 (31.0-36.0) g/dl RDW 15.0 (11.0-16.0) % Plt Count 402 H (160-400) X10*3/uL MPV 8.6 L (9.4-12.4) fL Immature Gran % (Auto) 0.4 (0.0-0.4) % Neut % (Auto) 69.0 (45-73) % Lymph % (Auto) 16.7 L (20-40) % [place] % (Auto) 13.4 H (2-11) % Eos % (Auto) 0.2 (0-4) % Baso % (Auto) 0.3 (0-2) % Lymph # (Auto) 3.4 (1.2-4.9) X10*3/uL [place] # (Auto) 2.7 H (0.1-1.2) X10*3/uL Eos # (Auto) 0.1 (0.0-0.4) X10*3/uL Baso # (Auto) 0.1 (0.0-0.2) X10*3/uL Abs Immat Gran (auto) 0.09 H (0.00-0.03) X10*3/uL Absolute Neuts (auto) 13.9 H (2.0-8.3) x10*3/uL Absolute Nucleated RBC 0.000 (0.0-0.012) X10*3/uL Nucleated RBC % (auto) 0.0 (0.0-0.2) /100WBC Smear Tech's Comments VERIFIED ESR 23 H (0-15) MM/HR Sodium 139 (135-145) mmol/L Potassium 3.6 (3.3-5.1) mmol/L Chloride 107 (96-108) mmol/L Carbon Dioxide 21 L (22-29) mmol/L Anion Gap 15 (12-20) BUN 6 L (9-16) mg/dL Creatinine 0.77 (0.5-1.4) mg/dL Estim Creat Clear Calc 143.9 Estimated GFR > 60 Random Glucose 104 (60-115) mg/dL Calcium 9.3 (8.4-10.2) mg/dL Total Bilirubin 0.8 (0.0-1.0) mg/dL Direct Bilirubin 0.3 (0.0-0.5) mg/dL AST 15 (5-37) U/L ALT 13 (0-40) U/L Alkaline Phosphatase 53 (39-117) U/L Troponin I High Sens < 2.7 (<3.5-35.0) ng/L C-Reactive Protein 16.19 H (< or = 0.50) mg/dL B-Natriuretic Peptide 24 (<100) pg/mL Total Protein 7.1 (6.5-8.0) g/dL Albumin 4.2 (3.5-5.0) g/dL Lipase 13 (8-78) U/L Influenza Type A (PCR) NEGATIVE (Negative) Influenza Type B (PCR) NEGATIVE (Negative) RSV RNA Qual (PCR) NEGATIVE (Negative) SARS-CoV-2 RNA (RT-PCR) NEGATIVE (Negative) Independent Interpretation I performed an independent interpretation of an: EKG and CT Scan Radiology Impression Discussion of test interpretation with radiology: I have reviewed the radiologist's reading. Radiologist Impression: LUNGS: The lungs are clear with no evidence of inflammation or nodules. MEDIASTINUM: Small pericardial effusion is present measuring approximately 5 mm in maximum width. (0 Hounsfield units). The heart size is normal. No coronary artery calcific atherosclerotic plaques identified. No mediastinal lymphadenopathy. Normal appearance of the thoracic aorta. CORONARY ARTERY CALCIFICATION: None visualized on this study. PLEURA: Trace left pleural effusion. AXILLA: No lymphadenopathy. UPPER ABDOMEN: Unremarkable. OSSEOUS STRUCTURES: Unremarkable. CT/CT chest wo IV con IMPRESSION: *Small pericardial effusion. A low-density (0 Hounsfield unit) pericardial effusion measures 5 mm in width and has an estimated volume of approximately 100 mL. *Small left pleural effusion. Critical Care Time Critical Care Time Critical Care Time: Yes Total Critical Care Time: 60 Attestation: I have personally provided critical care time. Time includes review of lab data, radiology results, discussion with consultants, and monitoring for potential decompensation. Intervention performed as documented. Discharge Plan Discharge Clinical Impression: Acute pericardial effusion Patient Disposition: Admitted As Inpatient Prescriptions: No Action omeprazole 40 mg capsule,delayed release(DR/EC) 40 mg PO BID cyanocobalamin (vitamin B-12) 1,000 mcg Tablet 1,000 mcg PO DAILY folic acid 1 mg tablet 1 mg PO DAILY azithromycin 250 mg tablet See Rx Instructions PO .COMPLEX Qty: 6 0RF Rx Instructions: For 250 mg dose pack: take 500 mg today (day 1), then 250 mg for 4 days (days 2-5) ibuprofen 600 mg tablet 600 mg PO Q6H PRN (Reason: pain) Qty: 30 0RF colchicine 0.6 mg tablet 0.6 mg PO BID 28 Days Qty: 56 0RF ibuprofen 400 mg tablet 400 mg PO TID PRN (Reason: pain) Qty: 60 0RF Print Language: Bangladeshi
--- NOTE | 2024-05-15 07:00 | CA_ITS ---
Transthoracic Echocardiogram Patient (Last, First, Middle): Jack Burns, Gender: Male Date of : 1990 Age: 33 Procedure Date: 05/15/2024 Procedure Type: Transthoracic Echocardiogram Location: ER Height: 172.72 cm Weight: 82.1 kg BSA: 1.96 m2 Heart Rate: 112 bpm BP: 127 / 77 mmHg Painting Worker: ZEINA Referring MD: Devon Wright MD H[employer]icultural [employer]er Inside: Henry Lantigua MD Symptoms: pericardial effusion Study Quality: Adequate ECG Rhythm: Tachycardia Conclusions: - 1. Small circumferential pericardial effusion without clear evidence of tamponade but respiratory variation may suggest possible constriction 2. Normal LV ejection fraction 55-60% 3. Normal cardiac valvular Doppler once Findings Procedure Information The quality of the study was technically difficult. The study quality is limited by the patients inability to tolerate the test. Left Ventricle Normal left ventricular size, thickness, and systolic function. The visually estimated ejection fraction is between 55-60%. Spectral Doppler is indicative of a normal filling pattern. Right Ventricle Normal right ventricular cavity size and systolic function. Atria Both atria are normal in size. There is no evidence of interatrial shunt. Aortic Valve Normal aortic valve structure and function. There is no aortic valve stenosis. There is no aortic valve regurgitation. Mitral Valve Normal mitral valve structure and function. There is no mitral valve regurgitation. There is no mitral valve stenosis. Pulmonic Valve The pulmonic valve was not well visualized. Tricuspid Valve Likely normal tricuspid valve structure and function. Tricuspid regurgitation envelope is inadequate for calculation of right ventricular systolic pressure. Great Vessels All visible segments of the aorta are normal in size. The pulmonary artery was not well visualized. Venous The inferior vena cava is mildly dilated. Pericardium/Pleural There is a small circumferential pericardial effusion. There is excessive respiratory variation of the mitral valve and tricuspid valve Doppler velocities. Prior Study Comparison No prior study available for comparison. Measurements 2D Linear Measurements IVSd: 0.95 0.6-0.9/0.6-1.0 cm LVIDd: 4.79 3.9-5.3/4.2-5.9 cm LVIDd Index: 2.44 2.4-3.2/2.2-3.1 cm/m2 LVIDs: 3.16 2.0-3.6 cm LVPWd: 0.74 0.7-1.1 cm LA Diam: 3.50 2.7-3.8/3.0-4.0 cm LAIDs Index: 1.79 1.5-2.3 cm/m2 LV Mass: 168.16 67-162/88-224 g LV Mass Index: 85.80 43-95/49-115 g/m2 LVOT Diam: 2.30 3.0+(-)1.3 cm Mitral Valve MV Pk E: 0.69 E'Lateral: 13.20 E'Medial: 13.50 E/E' Med: 5.10 E/E' Lat: 5.20 Aortic Valve AoV Pk Saud: 0.76 AoV Pk Grad: 2.00 GIULIANO: 4.60 LVOT LVOT Pk Saud: 0.84 LVOT Mn Saud: 0.58 LVOT VTI: 0.12 LVOT Pk Grad: 3.00 LVOT Mn Grad: 2.00 LVOT Diam: 2.30 LVOT Area: 4.15 Diastolic Function MV Pk E: 0.69 E'Medial: 13.50 E/E' Med: 5.10 E' Laterial: 13.20 E/E' Lat: 5.20 Right Ventricle TAPSE (mm): 16.80 TVS' Saud: 8.59 Tricuspid Valve RA Press: 8.00 Great Vessels Aorta Sinus of Valsalva: 3.20 2.0-3.5 cm Ao Asc: 3.30 2.1-3.4 cm Updated in Other Vendor System with Status of Final Henry Lantigua MD electronically signed on 05/15/2024 10:43:16 AM with status of Final
[2024-05-15] MEDS: Pantoprazole Sodium 40 MG/10 ML VIAL IVPUSH ×2 (07:13→17:43)
[2024-05-15] MEDS: fentaNYL citrate/PF 100 MCG/2 ML VIAL 25 MCG IVPUSH (07:13)
--- NOTE | 2024-05-15 07:35 | PC.NURSE ---
pt verbalizing increase in left sided chest pain - requesting medication. provider notified/aware. medication administered per provider order. effectiveness pending. pharmacy called d/t missing medication - will administer when able. pt spoke w/ ED provider in regards to plan of care at this time - aware he will be admitted to hospital services. pending admission at this time. no sob/wob noted. respirations even/unlabored. plan of care ongoing. call blue placed within reach.
[2024-05-15] MEDS: Indomethacin 25 MG CAPSULE 50 MG PO (08:52)
--- NOTE | 2024-05-15 08:52 | PC.NURSE ---
medication delivered from pharmacy/administered. pt still reporting 03/16 despite previous medication administration. provider aware. pt continues to pend admission. plan of care ongoing.
--- NOTE | 2024-05-15 09:31 | PC.NURSE ---
cardiology consult being completed at this time.
--- NOTE | 2024-05-15 09:40 | PC.NURSE ---
echo/manager corporate responsibility being completed at this time.
--- NOTE | 2024-05-15 10:03 | P.HPHOSP_ITS ---
History of Present Illness Date of Service: 05/15/24 <Antonina Vallejo PA-C - Last Filed: 05/15/24 11:24> Attending physician on admission: Reji Donovan <ROMEL Weinstein Last Filed: 05/15/24 11:24> Chief Complaint: chest pain, L shoulder pain <ROMEL Weinstein Last Filed: 05/15/24 11:24> 33 yo M with a pmhx of suspected viral pericarditis complicated by pericardial effusion in 02/2024 s/p pericardialcentesis on 03/02/24 at [facility], GERD, HTN, anxiety and depression, who reported to the ED with severe chest pain, worsening over the past week. seen at [facility] ED 6 days ago and had bedside echo that did not show any recurrence of effusion. previously on prednisone for pericarditis and tapered off. now having worsening sharp substernal chest pain, worse with inspiration and L shoulder pain that he describes as someone stomping on the top of my shoulder with cleats . he has been taking up to 2000mg of ibuprofen daily for the pain. also has new headache, congestion, cough, and nausea. just vomited liquids, no blood. has not been able to eat today due to the pain. previous cardiac w/u with [facility] was suspected to be viral. <Antonina Vallejo PA-C - Last Filed: 05/15/24 11:24> Review of Systems 2 Constitutional: Constitutional: Denies fatigue, Reports headache(s) and Reports poor appetite <ROMEL Weinstein Last Filed: 05/15/24 11:24> Eyes: Eyes: Denies change in vision <ROMEL Weinstein Last Filed: 05/15/24 11:24> ENT: Reports headache(s), Reports nasal congestion and Reports nasal discharge <ROMEL Weinstein Last Filed: 05/15/24 11:24> Cardiovascular: Cardiovascular: Reports as per HPI and Reports chest pain <ROMEL Weinstein Last Filed: 05/15/24 11:24> Respiratory: Respiratory: Reports as per HPI and Reports pain on inspiration <ROMEL Weinstein Last Filed: 05/15/24 11:24> Gastrointestinal: Gastrointestinal: Denies melena, Denies constipation, Denies diarrhea, Reports nausea, Reports vomiting and Denies hematemesis <Antonina Vallejo PA-C Last Filed: 05/15/24 11:24> Genitourinary: Genitourinary: Denies dysuria <Antonina Vallejo PA-C Last Filed: 05/15/24 11:24> Musculoskeletal: Musculoskeletal: Denies myalgias and Denies arthralgias < Antonina Vallejo PA-C Last Filed: 05/15/24 11:24> Integumentary/Breasts: Skin/Breast: Denies rash <Antonina Vallejo PA-C Last Filed: 05/15/24 11:24> Neurologic: Denies confusion and Reports headache(s) <PENNIE Weinstein Last Filed: 05/15/24 11:24> Psychiatric: Psychiatric: Denies confusion <Antonina Vallejo PA-C Last Filed: 05/15/24 11:24> Endocrine: Endocrine: Denies fatigue <Antonina Vallejo PA-C Last Filed: 05/15/24 11:24> [facility] Medical History: Medical History Pericardial effusion Alcohol use disorder, moderate, dependence MDD (major depressive disorder), recurrent episode, moderate Nausea with vomiting Alcohol use disorder Anxiety and depression History of seizure due to alcohol withdrawal ETOH abuse <Antonina Vallejo PA-C Last Filed: 05/15/24 11:24> Family History: Family History Other Diabetes <ROMEL Weinstein Last Filed: 05/15/24 11:24> Social History: Social History Household Members: Significant Other Housing: Apartment Do you presently have visiting nurse or other home services: No Alcohol intake: former Patient Tobacco Use Status: Former Tobacco user Tobacco use type: Cigarette Smoked in Last 30 Days: No e-Cigarette/Vaping Use: Never Used Second Hand Smoke Exposure: No Use of substances other than those prescribed or required for medical reasons: Yes Substance Use Type: Marijuana Substance Use Frequency: Daily Advance Directives: Yes Advance Directives on File: Yes Advance Directives Date on File: 11/07/22 Do you have a plan to hurt others: No Plan service: No Current occupational status: employed <ROMEL Weinstein Last Filed: 05/15/24 11:24> Narrative: hx cocaine use, none recently. hx of etoh misuse, sober x1 year. < ROMEL Weinstein Last Filed: 05/15/24 11:24> Meds Allergies/Adverse reactions: Allergies Allergy/AdvReac Type Severity Reaction Status Date / Time No Known Allergies Allergy Verified 05/15/24 02:15 <ROMEL Weinstein Last Filed: 05/15/24 11:24> Home medications: Home Medications ?Medication ?Instructions ?Recorded ?Confirmed ?Last Taken ?Type ibuprofen 200 mg tablet 600 mg PO TID PRN Pain 05/15/24 05/15/24 05/14/24 History <ROMEL Weinstein Filed: 05/15/24 11:24> Physical Exam 2 Vital Signs and Narrative: Vital Signs: Last Vital Signs Temp 99.5 F 05/15/24 08:00 Pulse 115 H 05/15/24 08:00 Resp 21 H 05/15/24 08:00 BP 127/77 05/15/24 08:00 Pulse Ox 98 05/15/24 08:00 O2 Del Method Room Air 05/15/24 08:00 BMI result Body Mass Index 27.5 <ROMEL Weinstein Last Filed: 05/15/24 11:24> General: AOx3, appears uncomfortable, laying on right side in position Resp: CTA bilaterally, limited exam due to pain with inspiration CVS: S1, S2, tachycardia, normal rhythm GI: +BS, NT, no distention Skin: Warm, dry Extremities: No edema Psych: Appropriate affect <ROMEL Weinstein Last Filed: 05/15/24 11:24> Const: General: No confusion <ROMEL Weinstein Last Filed: 05/15/24 11:24> Orientation/consciousness: No confusion <Antonina Vallejo PA-C - Last Filed: 05/15/24 11:24> Neuro: General: No confusion <Antonina Vallejo PA-C - Last Filed: 05/15/24 11:24> Results Labs CBC and Chem 7: 05/15/24 02:25 05/15/24 02:25 <Antonina Vallejo PA-C - Last Filed: 05/15/24 11:24> Labs: Laboratory Results - last 24 hr 05/15/24 02:25 MCV 87.3 MCH 30.1 MCHC 34.5 RDW 15.0 Plt Count 402 H MPV 8.6 L Immature Gran % (Auto) 0.4 Neut % (Auto) 69.0 Lymph % (Auto) 16.7 L [place] % (Auto) 13.4 H Eos % (Auto) 0.2 Baso % (Auto) 0.3 Lymph # (Auto) 3.4 [place] # (Auto) 2.7 H Eos # (Auto) 0.1 Baso # (Auto) 0.1 Abs Immat Gran (auto) 0.09 H Absolute Neuts (auto) 13.9 H Absolute Nucleated RBC 0.000 Nucleated RBC % (auto) 0.0 Smear Tech's Comments VERIFIED ESR 23 H Anion Gap 15 Estim Creat Clear Calc 143.9 Estimated GFR > 60 Random Glucose 104 Calcium 9.3 Total Bilirubin 0.8 Direct Bilirubin 0.3 AST 15 ALT 13 Alkaline Phosphatase 53 Troponin I High Sens < 2.7 C-Reactive Protein 16.19 H B-Natriuretic Peptide 24 Total Protein 7.1 Albumin 4.2 Lipase 13 Influenza Type A (PCR) NEGATIVE Influenza Type B (PCR) NEGATIVE RSV RNA Qual (PCR) NEGATIVE SARS-CoV-2 RNA (RT-PCR) NEGATIVE <Antonina Vallejo PA-C - Last Filed: 05/15/24 11:24> Imaging Radiologist's Impressions: Impressions Chest X-Ray 05/15/24 02:30 IMPRESSION: Normal chest. Electronically signed by: Sukhwinder Villegas MD 05/15/2024 04:[address] 05/15/24 05:15 IMPRESSION: *Small pericardial effusion. A low-density (0 Hounsfield unit) pericardial effusion measures 5 mm in width and has an estimated volume of approximately 100 mL. *Small left pleural effusion. Electronically signed by: Sukhwinder Villegas MD 05/15/2024 05:57 AM EDT RP <Antonina Vallejo PA-C - Last Filed: 05/15/24 11:24> Assessment and Plan (1) Acute pericardial effusion: Status: Acute <ROMEL Weinstein Last Filed: 05/15/24 11:24> (2) Pericarditis: Qualifiers: Chronicity: acute Pericarditis type: unspecified type Q ualified Code(s): I30.9 - Acute pericarditis, unspecified <ROMEL Weinstein Last Filed: 05/15/24 11:24> Status: Acute <ROMEL Weinstein Last Filed: 05/15/24 11:24> 33 yo M with a pmhx of suspected viral pericarditis complicated by pericardial effusion in 02/2024 s/p pericardialcentesis on 03/02/24 at [facility], GERD, depression, anxiety, and HTN who reported to the ED with severe chest pain, worsening over the past week. seen at [facility] ED 6 days ago and had bedside echo that did not show any recurrence of effusion. chest CT today with small pericardial effusion and L sided pleural effusion pericarditis with pericardial effusion - reviewed [facility] records, w/u conclusive for viral etiology - toradol, solumedrol, pantoprazole all per cardio recommendations - oxycodone for severe pain - flu,COVID, RSU negative - small circumfrential pericardial effusion on echo - CXR normal - cardiac consult - monitor CBC, CRP and ESR GERD - pantoprazole as above HTN - no home meds, BP normal full code VTE prophy: pneumoboots and lovenox Pt with recurrent pericarditis and small pericardial effusion who has failed outpt tx of pericarditis and is at risk for recurrence of large pericardial effusion, need for admission to monitor and treat for at least 2 midnights stay. <Antonina Vallejo PA-C - Last Filed: 05/15/24 11:24> 33 yo M with a pmhx of suspected viral pericarditis complicated by pericardial effusion in 02/2024 s/p pericardialcentesis on 03/02/24 at [facility], GERD, depression, anxiety, and HTN who reported to the ED with severe chest pain, worsening over the past week. seen at [facility] ED 6 days ago and had bedside echo that did not show any recurrence of effusion. chest CT today with small pericardial effusion and L sided pleural effusion pericarditis with pericardial effusion - reviewed [facility] records, w/u conclusive for viral etiology - toradol, solumedrol, pantoprazole all per cardio recommendations - oxycodone for severe pain - flu,COVID, RSU negative - small circumfrential pericardial effusion on echo - CXR normal - cardiac consult - monitor CBC, CRP and ESR GERD - pantoprazole as above HTN - no home meds, BP normal full code VTE prophy: pneumoboots and lovenox Pt with recurrent pericarditis and small pericardial effusion who has failed outpt tx of pericarditis and is at risk for recurrence of large pericardial effusion, need for admission to monitor and treat for at least 2 midnights stay. Addendum to history and physical by the advanced practice provider, YOHANA Vallejo I interviewed and examined the patient. I discussed their presentation and management with the SHARON. I reviewed the history and physical and agree with the documentation, with the following additions and corrections: 33yo M with hx pericardial effusion s/p pericardiocentesis February 2024, treated with prednisone taper + colchicine, presenting with worsening chest pain relieved only by sitting forward, found to have small pericardial effusion and elevated ESR/CRP. Plan admit to telemetry, Cardiology consult, ketorolac, IV methylprednisolone, colchicine <Reji Donovan MD - Last Filed: 05/15/24 12:08> Quality Stroke Does the patient have a stroke diagnosis?: No <Antonina Vallejo PA-C - Last Filed: 05/15/24 11:24> VTE Prior VTE?: No <Antonina Vallejo PA-C - Last Filed: 05/15/24 11:24> VTE Risk Level:: Medical - moderate - high <Antonina Vallejo PA-C - Last Filed: 05/15/24 11:24> VTE Device Contraindication: N/A - Device Ordered <Antonina Vallejo PA-C - Last Filed: 05/15/24 11:24> VTE Drug Contraindication: N/A - Med Ordered <Antonina Vallejo PA-C - Last Filed: 05/15/24 11:24>
[2024-05-15] MEDS: methylPREDNISolone Sod Succ 40 MG/ML VIAL IVPUSH (10:37)
[2024-05-15] MEDS: Ketorolac Tromethamine 30 MG/ML VIAL IVPUSH ×3 (10:38→21:12)
--- NOTE | 2024-05-15 11:06 | PHA.MEDREC ---
Pharmacy Consult ? Medication Reconciliation Pharmacy has completed the medication reconciliation. Confirmed with patient he is only taking Colchicine and confirmed he is taking the 0.6mg tab and he takes it three times a day. He also confirmed Ibuprofen,
--- NOTE | 2024-05-15 11:08 | P.CONCA_ITS ---
History of Present Illness History of Present Illness Date of Service: 05/15/24 Requesting physician: Reji Donovan Consult reason: other (Pericarditis) Chief complaint: pericarditis/pericardial effusion Narrative: I was consulted to see Jack in cardiology consultation today for severe chest pain. Subsequent findings are suggestive of acute recurrent pericarditis with small pericardial effusion. Patient has prior history of alcohol use as well as cocaine use, in February was admitted to [facility] with chest pain and subsequently was noted to have large pericardial effusion with early tamponade side underwent pericardiocentesis. Then was treated with steroids and colchicine and nonsteroidals. Patient since then had 2 more presentations to [facility] with chest pain and echocardiogram done at 1 of the visit in May did not show any significant pericardial fluid. Patient was continued on tapering dose of prednisone and was only taking 1 pill a prednisone does not notice dose and was taking colchicine. Came to the hospital with significantly worsened chest pain. He says the chest pain similar to the 1st time when he went to the emergency room worse with deep breathing and when he lays down as radiating to the left side of the neck. He has a lot in distress. So far as see 1 dose of aspirin 650 mg, Tylenol. He is also currently got colchicine. And indomethacin. He also has got morphine. Patient continues to have chest pain. Denies any clear shortness of breath. Was having muscular cramps. Review of Systems 2 Constitutional: Constitutional: Denies chills and Denies fever(s) Eyes: Eyes: Reports no additional eye complaints Cardiovascular: Cardiovascular: Reports chest pain at rest (Worse with lying down), Denies leg edema, Denies lightheadedness, Denies Loss of Consciousness, Denies palpitations and Denies dyspnea Respiratory: Respiratory: Reports pain on inspiration, Reports pain with cough and Denies dyspnea Gastrointestinal: Gastrointestinal: Denies no additional gastrointestinal complaints Genitourinary: Genitourinary: Denies no additional male genitourinary complaints Musculoskeletal: Musculoskeletal: Reports no additional musculoskeletal complaints Integumentary/Breasts: Skin/Breast: Denies system reviewed and no additional complaints, except as docu Endocrine: Endocrine: Denies palpitations PMFSH Past Medical History Medical History Pericardial effusion Alcohol use disorder, moderate, dependence MDD (major depressive disorder), recurrent episode, moderate Nausea with vomiting Alcohol use disorder Anxiety and depression History of seizure due to alcohol withdrawal ETOH abuse Family History Family History Other Diabetes Social History Social History Household Members: Significant Other Housing: Apartment Do you presently have visiting nurse or other home services: No Alcohol intake: former Patient Tobacco Use Status: Former Tobacco user Tobacco use type: Cigarette Smoked in Last 30 Days: No e-Cigarette/Vaping Use: Never Used Second Hand Smoke Exposure: No Use of substances other than those prescribed or required for medical reasons: Yes Substance Use Type: Marijuana Substance Use Frequency: Daily Advance Directives: Yes Advance Directives on File: Yes Advance Directives Date on File: 11/07/22 Do you have a plan to hurt others: No Plan service: No Current occupational status: employed Meds Allergies Allergy/AdvReac Type Severity Reaction Status Date / Time No Known Allergies Allergy Verified 05/15/24 02:15 Active Medications: Current Medications Acetaminophen (Acetaminophen 325 Mg Tablet) 650 mg PO Q6H PRN PRN Reason: Pain, Mild (Pain Scale 1-3), fever or headache Calcium Carbonate (Calcium Carbonate 750 Mg Tab.Chew) 750 mg PO Q4H PRN PRN Reason: Heartburn Enoxaparin Sodium (Enoxaparin Sodium 40 Mg/0.4 Ml Syringe) 40 mg SUBCUT Q24H [facility] Ketorolac Tromethamine (Ketorolac Tromethamine 30 Mg/Ml Vial) 30 mg IVPUSH Q6H [facility] Magnesium Hydroxide (Milk Of Magnesia 30 Ml Oral.Susp) 30 ml PO DAILY PRN PRN Reason: Constipation Melatonin (Melatonin 3 Mg Tablet) 6 mg PO BEDTIME PRN PRN Reason: Insomnia Methylprednisolone Sodium Succinate (Methylprednisolone Sod Succ 40 Mg/Ml Vial) 40 mg IVPUSH Q24H [facility] Last Admin: 05/15/24 10:37 Dose: 40 mg Ondansetron HCl (Ondansetron Hcl 4 Mg/2 Ml Vial) 4 mg IVPUSH Q8H PRN PRN Reason: Nausea and Vomiting Oxycodone HCl (Oxycodone Hcl Immed Release 5 Mg Tablet) 5 mg PO Q6H PRN PRN Reason: Pain, Severe (Pain Scale 7-10) Pantoprazole Sodium (Pantoprazole Sodium 40 Mg/10 Ml Vial) 40 mg IVPUSH BID@0630,1630 [facility] Sodium Chloride (0.9 % Sodium Chloride Flush 3 Ml Syringe) 3 ml IVFLUSH QSHIFT [facility] Home Medications ?Medication ?Instructions ?Recorded ?Confirmed ?Last Taken ?Type ibuprofen 200 mg tablet 600 mg PO TID PRN Pain 05/15/24 05/15/24 Unknown History Physical Exam 2 Vital Signs: Vital Signs: Last Vital Signs Temp 99.5 F 05/15/24 08:00 Pulse 115 H 05/15/24 08:00 Resp 21 H 05/15/24 08:00 BP 127/77 05/15/24 08:00 Pulse Ox 98 05/15/24 08:00 O2 Del Method Room Air 05/15/24 08:00 BMI result Body Mass Index 27.5 Const: General: cooperative, alert, awake and in distress moderate and other (Due to pain) Nutritional Appearance: average body habitus O rientation/consciousness: patient oriented x3 HEENT: Head: Yes normocephalic and Yes atraumatic Neck: Neck: Yes trachea midline, Yes supple and Yes no JVD Resp: Effort & Inspection: decreased respiratory effort Auscultation: clear to auscultation bilaterally Cardio: Jugular venous distension: JVD Rate: tachycardic Rhythm: regular rhythm Heart sounds: S1 normal heart sound present, S2 normal heart sound present, no click, no gallops, no murmurs and no rubs GI: Auscultation: normal bowel sounds Skin: General skin exam: no rashes or lesions noted Neuro: General: patient oriented x3 and no focal motor deficits Extrem: General: Yes no clubbing, cyanosis or edema Psych: Affect: Anxious affect present Objective Labs and Meds 05/15/24 02:25 05/15/24 02:25 Lab results: Laboratory Results - last 24 hr 05/15/24 02:25 WBC 20.2 H RBC 4.42 L Hgb 13.3 L Hct 38.6 L MCV 87.3 MCH 30.1 MCHC 34.5 RDW 15.0 Plt Count 402 H MPV 8.6 L Immature Gran % (Auto) 0.4 Neut % (Auto) 69.0 Lymph % (Auto) 16.7 L [place] % (Auto) 13.4 H Eos % (Auto) 0.2 Baso % (Auto) 0.3 Lymph # (Auto) 3.4 [place] # (Auto) 2.7 H Eos # (Auto) 0.1 Baso # (Auto) 0.1 Abs Immat Gran (auto) 0.09 H Absolute Neuts (auto) 13.9 H Absolute Nucleated RBC 0.000 Nucleated RBC % (auto) 0.0 Smear Tech's Comments VERIFIED ESR 23 H Sodium 139 Potassium 3.6 Chloride 107 Carbon Dioxide 21 L Anion Gap 15 BUN 6 L Creatinine 0.77 Estim Creat Clear Calc 143.9 Estimated GFR > 60 Random Glucose 104 Calcium 9.3 Total Bilirubin 0.8 Direct Bilirubin 0.3 AST 15 ALT 13 Alkaline Phosphatase 53 Troponin I High Sens < 2.7 C-Reactive Protein 16.19 H B-Natriuretic Peptide 24 Total Protein 7.1 Albumin 4.2 Lipase 13 Influenza Type A (PCR) NEGATIVE Influenza Type B (PCR) NEGATIVE RSV RNA Qual (PCR) NEGATIVE SARS-CoV-2 RNA (RT-PCR) NEGATIVE Imaging Radiologist's impression: Impressions Chest X-Ray 05/15/24 02:30 IMPRESSION: Normal chest. Electronically signed by: Sukhwinder Villegas MD 05/15/2024 04:10 AM EDT RP Chest CT 05/15/24 05:15 IMPRESSION: *Small pericardial effusion. A low-density (0 Hounsfield unit) pericardial effusion measures 5 mm in width and has an estimated volume of approximately 100 mL. *Small left pleural effusion. Electronically signed by: Sukhwinder Villegas MD 05/15/2024 05:57 AM EDT RP Assessment and Plan (1) Recurrent idiopathic pericarditis: Status: Acute Recurrent acute pericarditis most likely due to withdrawal of prednisone to the lower dose, patient says that he has been taking the prednisone colchicine religiously. This could be a significant clinical issue at this point time I would treat him back with steroids and IV Toradol for pain control. Can use other medications p.r.n. for pain control. Consider workup for autoimmune disease as well although in acute phase workup could be negative. May be a candidate forrilonacept what will need history or workup for complete immunization. Will require prior authorization approval from the geological sample tester. Echo shows small pericardial effusion with possible constriction without any hemodynamic compromise at this point time. Would hydrate aggressively through IV fluids Will follow with you. Procedures Date of Service Date of Service: 05/15/24
--- NOTE | 2024-05-15 11:09 | PHA.MEDREC ---
Addendum entered by Marcos Thompson RPh 05/15/24 11:21: Reviewed by [facility]. Original Note: Pharmacy Consult ? Medication Reconciliation Pharmacy has completed the medication reconciliation. Confirmed with patient he is only taking Colchicine and confirmed he is taking the 0.6mg tab and he takes it three times a day. He also confirmed he takes ibuprofen 200mg tabs as needed but states hes been taking about 1000mg doing it 3 tabs TID as needed for pain and states he took that along with the Colchicine yesterday.
[2024-05-15] MEDS: Enoxaparin Sodium 40 MG/0.4 ML SYRINGE SUBCUT (12:21)
[2024-05-15] MEDS: oxyCODONE HCl Immed Release 5 MG TABLET PO ×2 (12:24→17:45)
[2024-05-15] MEDS: Lactated Ringers 1,000 ML 125 ML IVCONT ×2 (12:40→21:14)
[2024-05-15] MEDS: 0.9 % Sodium Chloride Flush 3 ML SYRINGE IVFLUSH ×2 (17:45→21:12)
[2024-05-15] MEDS: Flu Vacc TS2024-25(6mos up)/PF 0.5 ML SYRINGE IM (21:18)
[2024-05-16 03:37] VITALS: BP 137/79; PULSE 64; RESP 18; TEMP 36.6; O2SAT 97
[2024-05-16] MEDS: oxyCODONE HCl Immed Release 5 MG TABLET PO (04:01)
[2024-05-16] MEDS: Pantoprazole Sodium 40 MG/10 ML VIAL IVPUSH (05:03)
[2024-05-16] MEDS: Ketorolac Tromethamine 30 MG/ML VIAL IVPUSH ×2 (05:03→09:38)
[2024-05-16 06:07] LABS: Basophils Percent Auto 0.1 % (0-2); Hematocrit 38.6 % (42.0-52.0); Hemoglobin 12.8 g/dl (14.0-18.0); Imm Gran Abs Auto 0.13 X10*3/uL (0.00-0.03); Imm Gran Pct Auto 0.6 % (0.0-0.4); Lymphocytes Absolute Auto 1.6 X10*3/uL (1.2-4.9); Lymphocytes Percent Auto 7.6 % (20-40); MANUAL DIFF FLAG SCAN; Mean Corpuscular HGB Conc 33.2 g/dl (31.0-36.0); Mean Corpuscular Hemoglobin 29.6 pg (27.0-33.0); Mean Corpuscular Volume 89.1 fL (80.0-98.0); Mean Platelet Volume 8.5 fL (9.4-12.4); Monocytes Absolute Auto 1.9 X10*3/uL (0.1-1.2); Monocytes Percent Auto 8.9 % (2-11); Neutrophils Absolute Auto 17.8 x10*3/uL (2.0-8.3); Neutrophils Percent Auto 82.8 % (45-73); Platelet Count 431 X10*3/uL (160-400); Red Blood Count 4.33 X10*6/uL (4.60-5.80); Red Cell Distribution Width 14.7 % (11.0-16.0); SCAN SMEAR FLAG 1; White Blood Count 21.4 X10*3/uL (4.8-10.8)
--- NOTE | 2024-05-16 06:15 | PC.NURSE ---
Pt is AOx4, able to make needs known, independent in his room. Pt had an USG IV placed this AM, tolerated well, fluids had to be paused d/t no access, resumed once access regained. He still reports pain to his left shoulder but states he feels it is more manageable w/the pain meds he has been receiving here. Lungs clear, on RA, +bowel sounds. Call blue within reach, camera in room.
[2024-05-16 06:21] LABS: Anion Gap 11 (12-20); Blood Urea Nitrogen 14 mg/dL (9-16); Calcium 10.4 mg/dL (8.4-10.2); Carbon Dioxide 27 mmol/L (22-29); Chloride 105 mmol/L (96-108); Creatinine Clr Calc Pharmacy 129.8; Estimated Glomerular Filt Rate > 60; Glucose Random 104 mg/dL (60-115); Potassium 4.1 mmol/L (3.3-5.1); Sodium 139 mmol/L (135-145)
[2024-05-16 06:35] LABS: SLIDE REVIEW VERIFIED
[2024-05-16 07:21] LABS: Erythrocyte Sedimentation Rate 49 MM/HR (0-15)
[2024-05-16 07:40] VITALS: BP 112/76; PULSE 69; RESP 18; TEMP 36.6; O2SAT 97
--- NOTE | 2024-05-16 08:13 | MHC.CM.PN ---
CM met with Patient at bedside. Patient lives in an apartment with his and 5 year old Daughter and he required no services nor DME [employer]. Home/self care is the goal and CM has initiated and will follow for dc planning. Patient has a new PCP through [facility] and his will transport to home.
[2024-05-16] MEDS: methylPREDNISolone Sod Succ 40 MG/ML VIAL IVPUSH (09:38)
[2024-05-16] MEDS: Colchicine 0.6 MG TABLET PO (09:39)
--- NOTE | 2024-05-16 10:26 | P.PNCA_ITS ---
Subjective Subjective Date of Service: 05/16/24 Principal diagnosis: Recurrent pericarditis Interval history: Patient is feeling a lot better today. No significant pain. No hemodynamic instability or shortness of breath. No arrhythmias. Review of Systems Constitutional: Reports no additional constitutional complaints Physical Exam Vital Signs: Last Vital Signs Temp 97.9 F 05/16/24 07:40 Pulse 69 05/16/24 07:40 Resp 18 05/16/24 07:40 BP 112/76 05/16/24 07:40 Pulse Ox 97 05/16/24 07:40 O2 Del Method Room Air 05/16/24 07:40 BMI result Body Mass Index 27.5 Const General: cooperative, alert and awake Nutritional Appearance: average body habitus Orientation/consciousness: patient oriented x3 Neck Neck: Yes trachea midline, Yes supple and Yes no JVD Resp Effort & Inspection: decreased respiratory effort Auscultation: clear to auscultation bilaterally Cardio Jugular venous distension: JVD Rate: tachycardic Rhythm: regular rhythm Heart sounds: S1 normal heart sound present, S2 normal heart sound present, no click, no gallops, no murmurs and no rubs GI Auscultation: normal bowel sounds Skin General skin exam: no rashes or lesions noted Neuro General: patient oriented x3 and no focal motor deficits Extrem General: Yes no clubbing, cyanosis or edema Psych Affect: Anxious affect present Objective Labs and Meds 05/16/24 05:46 05/16/24 05:46 Lab results: Laboratory Results - last 24 hr 05/16/24 05:46 WBC 21.4 H RBC 4.33 L Hgb 12.8 L Hct 38.6 L MCV 89.1 MCH 29.6 MCHC 33.2 RDW 14.7 Plt Count 431 H MPV 8.5 L Immature Gran % (Auto) 0.6 H Neut % (Auto) 82.8 H Lymph % (Auto) 7.6 L [place] % (Auto) 8.9 Eos % (Auto) 0.0 Baso % (Auto) 0.1 Lymph # (Auto) 1.6 [place] # (Auto) 1.9 H Eos # (Auto) 0.0 Baso # (Auto) 0.0 Abs Immat Gran (auto) 0.13 H Absolute Neuts (auto) 17.8 H Absolute Nucleated RBC 0.000 Nucleated RBC % (auto) 0.0 Smear Tech's Comments VERIFIED ESR 49 H Sodium 139 Potassium 4.1 Chloride 105 Carbon Dioxide 27 Anion Gap 11 L BUN 14 Creatinine 0.79 Estim Creat Clear Calc 129.8 Estimated GFR > 60 Random Glucose 104 Calcium 10.4 H D Progress Note: A&P Assessment and plan (1) Recurrent idiopathic pericarditis: Status: Acute Assessment and Plan: Recurrent idiopathic pericarditis most likely due to tapering of his steroid dose and has become steroid dependent. This would probably need alternative treatment and consider rilonacept as outpatient. Continue colchicine and prednisone therapy. Patient advised if he develops more symptoms of shortness of breath lightheadedness to follow-up in the emergency room. Otherwise patient can be discharged from cardiac perspective with follow-up in 1-2 weeks with his field identification specialist at [facility]. Will sign of the case. Thank you for allowing me to partake in his care Time Spent With Patient Time: Total time managing care of this patient today ____ minutes. Progress Note: Quality Stroke Does the patient have a stroke diagnosis?: No Procedures Date of Service Date of Service: 05/16/24
[2024-05-16 11:10] VITALS: BP 140/83; PULSE 85; RESP 20; TEMP 36.9; O2SAT 99
[2024-05-16] MEDS: Enoxaparin Sodium 40 MG/0.4 ML SYRINGE SUBCUT (11:51)
--- NOTE | 2024-05-16 14:17 | MHC.CM.PN ---
Patient has been medically cleared for dc to home today, self care.
--- NOTE | 2024-05-16 14:25 | PM.DS ---
DS: Providers Provider Date of Service: 05/16/24 Date of admission: 05/15/24 10:58 Primary care physician: Unknown Physician Consults: 05/15/24 08:17 Consult to Cardiology Routine Consulting Provider: [facility] Reason for consultation: recurrent pericardial effusison Has provider been notified: Yes 05/15/24 10:53 Consult to Cardiology Routine Consulting Provider: Henry Lantigua Reason for consultation: pericarditis/pericardial effusion Has provider been notified: Yes DS: Diagnosis Discharge Diagnosis (1) Recurrent idiopathic pericarditis: Status: Acute DS: Summary Hospital Course Hospital Course: From the history and physical by the admitting hospitalist, YOHANA Weinstein 05/15/24: 33 yo M with a pmhx of suspected viral pericarditis complicated by pericardial effusion in 02/2024 s/p pericardialcentesis on 03/02/24 at [facility], GERD, HTN, anxiety and depression, who reported to the ED with severe chest pain, worsening over the past week. seen at [facility] ED 6 days ago and had bedside echo that did not show any recurrence of effusion. previously on prednisone for pericarditis and tapered off. now having worsening sharp substernal chest pain, worse with inspiration and L shoulder pain that he describes as someone stomping on the top of my shoulder with cleats . he has been taking up to 2000mg of ibuprofen daily for the pain. also has new headache, congestion, cough, and nausea. just vomited liquids, no blood. has not been able to eat today due to the pain. previous cardiac w/u with [facility] was suspected to be viral. He was admitted to the telemetry unit with Cardiology consultation. Echocardiogram showed a small pericardial effusion with possible constriction without any hemodynamic compromise. Likely viral/idiopathic pericarditis that recurred due to recent decrease in prednisone dose from 20 to 10 mg daily. He has been compliant with prednisone and colchicine therapy. He was treated with methylprednisolone, colchicine, and ketorolac, plus oxycodone for breakthrough pain. His symptoms improved markedly. He was discharged on prednisone 40 mg daily and will continue colchicine. He was also prescribed omeprazole for GI prophylaxis. He should take ibuprofen for mild-moderate pain and oxycodone for severe pain. 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 He may be a candidate for the biologic IL-1 inhibitor rilonacept, for which a pre-treatment T-spot TB-IGRA, HBV serology and HCV serology were drawn and are pending at the time of discharge. He should also see his PCP and get the recommended pre-treatment vaccinations, which are pneumococcal and zoster immunizations. JAKE from pericardial fluid was previously done and negative at [facility]; a serum JAKE was drawn and is pending as well. Time Attestation Discharge Coordination Time (in mins): 45 Quality: Safe Use of Opioids Does Pt have an Active Cancer Diagnosis on the Problem List?: No Quality: Stroke Does the patient have a stroke diagnosis?: No Physical Exam Vital Signs: Vital Signs: Last Vital Signs Temp 98.4 F 05/16/24 11:10 Pulse 85 05/16/24 11:10 Resp 20 05/16/24 11:10 BP 140/83 H 05/16/24 11:10 Pulse Ox 99 05/16/24 11:10 O2 Del Method Room Air 05/16/24 11:10 BMI result Body Mass Index 27.5 Gen: in no acute distress HEENT: sclera anicteric, moist mucus membranes Neck: supple Lungs: clear to auscultation bilaterally Heart: regular rate and rhythm, no murmurs Abd: soft, non-tender, non-distended Ext: no edema Skin: warm/well-perfused Neuro: alert and oriented x3, no focal findings Psych: appropriate affect DS: Data Data Completed and Pending Completed studies during hospitalization [Text1]: Laboratory Results WBC 21.4 X10*3/uL (4.8-10.8) H 05/16/24 05:46 RBC 4.33 X10*6/uL (4.60-5.80) L 05/16/24 05:46 Hgb 12.8 g/dl (14.0-18.0) L 05/16/24 05:46 Hct 38.6 % (42.0-52.0) L 05/16/24 05:46 MCV 89.1 fL (80.0-98.0) 05/16/24 05:46 MCH 29.6 pg (27.0-33.0) 05/16/24 05:46 MCHC 33.2 g/dl (31.0-36.0) 05/16/24 05:46 RDW 14.7 % (11.0-16.0) 05/16/24 05:46 Plt Count 431 X10*3/uL (160-400) H 05/16/24 05:46 MPV 8.5 fL (9.4-12.4) L 05/16/24 05:46 Immature Gran % (Auto) 0.6 % (0.0-0.4) H 05/16/24 05:46 Neut % (Auto) 82.8 % (45-73) H 05/16/24 05:46 Lymph % (Auto) 7.6 % (20-40) L 05/16/24 05:46 [place] % (Auto) 8.9 % (2-11) 05/16/24 05:46 Eos % (Auto) 0.0 % (0-4) 05/16/24 05:46 Baso % (Auto) 0.1 % (0-2) 05/16/24 05:46 Lymph # (Auto) 1.6 X10*3/uL (1.2-4.9) 05/16/24 05:46 [place] # (Auto) 1.9 X10*3/uL (0.1-1.2) H 05/16/24 05:46 Eos # (Auto) 0.0 X10*3/uL (0.0-0.4) 05/16/24 05:46 Baso # (Auto) 0.0 X10*3/uL (0.0-0.2) 05/16/24 05:46 Abs Immat Gran (auto) 0.13 X10*3/uL (0.00-0.03) H 05/16/24 05:46 Absolute Neuts (auto) 17.8 x10*3/uL (2.0-8.3) H 05/16/24 05:46 Absolute Nucleated RBC 0.000 X10*3/uL (0.0-0.012) 05/16/24 05:46 Nucleated RBC % (auto) 0.0 /100WBC (0.0-0.2) 05/16/24 05:46 Smear Tech's Comments VERIFIED 05/16/24 05:46 ESR 49 MM/HR (0-15) H 05/16/24 05:46 Sodium 139 mmol/L (135-145) 05/16/24 05:46 Potassium 4.1 mmol/L (3.3-5.1) 05/16/24 05:46 Chloride 105 mmol/L (96-108) 05/16/24 05:46 Carbon Dioxide 27 mmol/L (22-29) 05/16/24 05:46 Anion Gap 11 (12-20) L 05/16/24 05:46 BUN 14 mg/dL (9-16) 05/16/24 05:46 Creatinine 0.79 mg/dL (0.5-1.4) 05/16/24 05:46 Estim Creat Clear Calc 129.8 05/16/24 05:46 Estimated GFR > 60 05/16/24 05:46 Random Glucose 104 mg/dL (60-115) 05/16/24 05:46 Calcium 10.4 mg/dL (8.4-10.2) H D 05/16/24 05:46 Total Bilirubin 0.8 mg/dL (0.0-1.0) 05/15/24 02:25 Direct Bilirubin 0.3 mg/dL (0.0-0.5) 05/15/24 02:25 AST 15 U/L (5-37) 05/15/24 02:25 ALT 13 U/L (0-40) 05/15/24 02:25 Alkaline Phosphatase 53 U/L (39-117) 05/15/24 02:25 Troponin I High Sens < 2.7 ng/L (<3.5-35.0) 05/15/24 02:25 C-Reactive Protein 16.19 mg/dL (< or = 0.50) H 05/15/24 02:25 B-Natriuretic Peptide 24 pg/mL (<100) 05/15/24 02:25 Total Protein 7.1 g/dL (6.5-8.0) 05/15/24 02:25 Albumin 4.2 g/dL (3.5-5.0) 05/15/24 02:25 Lipase 13 U/L (8-78) 05/15/24 02:25 Influenza Type A (PCR) NEGATIVE (Negative) 05/15/24 02:25 Influenza Type B (PCR) NEGATIVE (Negative) 05/15/24 02:25 RSV RNA Qual (PCR) NEGATIVE (Negative) 05/15/24 02:25 SARS-CoV-2 RNA (RT-PCR) NEGATIVE (Negative) 05/15/24 02:25 Impressions Chest X-Ray 05/15/24 02:30 IMPRESSION: Normal chest. Electronically signed by: Sukhwinder Villegas MD 05/15/2024 04:10 AM EDT RP Chest CT 05/15/24 05:15 IMPRESSION: *Small pericardial effusion. A low-density (0 Hounsfield unit) pericardial effusion measures 5 mm in width and has an estimated volume of approximately 100 mL. *Small left pleural effusion. Electronically signed by: Sukhwinder Villegas MD 05/15/2024 05:57 AM EDT RP TTE 05/15/24 1. Small circumferential pericardial effusion without clear evidence of tamponade but respiratory variation may suggest possible constriction 2. Normal LV ejection fraction 55-60% 3. Normal cardiac valvular Doppler once Discharge Plan Discharge Anticipated Discharge Date/Time: 05/16/24 14:07 Patient Disposition: Home, Self-Care Discharge Diagnosis: recurrent pericarditis Referrals: [facility] [Provider Group] - 1 Week Do Moody NP [Nurse Practitioner] - 1 Week PhysicianJohana [Primary Care Provider] - 1 Week Discharge Medications: New oxycodone 5 mg Tablet 5 mg PO Q6H PRN (Reason: Pain, Severe (Pain Scale 7-10)) Qty: 12 0RF Rx Instructions: Partial Fill upon patient request. 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, then taper as directed by your tile layer supervisor omeprazole 20 mg capsule,delayed release(DR/EC) 20 mg PO DAILY Qty: 30 0RF Rx Instructions: take while on prednisone Continued ibuprofen 200 mg Tablet 600 mg PO TID PRN (Reason: Pain) trazodone 50 mg tablet 50 mg PO BEDTIME PRN (Reason: Insomnia) colchicine 0.6 mg tablet 0.6 mg PO BID 28 Days Qty: 56 0RF Discharge Orders: Discharge Order (Routine); Ordered 05/16/24 Ordered By: Reji Donovan Diet: Advance to usual diet Activity on Discharge: As tolerated Stand Alone Forms: Patient Portal Discharge page Print Language: Bengali Care Plan Goals: resolution of pericarditis Health Concerns: recurrent pericarditis Plan of Treatment: pending labs at time of discharge: - T-spot TB - hepatitis B serology - hepatitis C serology - JAKE take prednisone 40 mg daily until you see 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 you should have pneumococcal and zoster vaccines prior to starting this agent; discuss with your primary care doctor Please follow up with your primary care doctor within 1 week. Return to the hospital if you experience recurrent or worsening symptoms. Assessment: See Discharge Summary.
[2024-05-17 08:19] LABS: HBS Num1 12.08 mIU/mL (0-7.99); HBc Num1 0.16 S/CO (0.00-0.79); Hepatitis B Core Antibody Nonreactive (Nonreactive); Hepatitis B Surface Antigen Negative (Negative); ~HepC Num1 0.41 S/CO (0.00-0.79); ~Hepatitis B Surface Antibody REACTIVE (Nonreactive); ~Hepatitis C Antibody Nonreactive (Nonreactive)
[2024-05-18 00:09] LABS: CRP High Sensitivity >20.0 mg/L
[2024-05-19 07:23] LABS: TS Negative Control Passed; TS Panel A 0; TS Panel B 1; TS Positive Control Passed; TSpotTB Negative (Negative)
[2024-05-20 14:09] LABS: Anti Nuclear Antibody Screen NEGATIVE (NEGATIVE)
== END 2024-05-16 15:07 | disposition home or self-care (01) | DRG 207 ==
LOC: HO.ED 07:17 → HO.EDOVER 11:06 → HO.IMC 15:35
PROVIDERS: Admitting Provider Physician Assistant; Emergency Provider Emergency Medicine; Visit Provider Family Medicine
DX: I30.0 Acute nonspecific idiopathic pericarditis (principal); I10 Essential (primary) hypertension; K21.9 Gastro-esophageal reflux disease without esophagitis; Z20.822 Contact with and (suspected) exposure to COVID-19; Z23 Encounter for immunization; Z79.52 Long term (current) use of systemic steroids; Z87.891 Personal history of nicotine dependence; Z79.899 Other long term (current) drug therapy
CPT/HCPCS: 0241U; 36415; 71045; 71250; 80048; 80053; 82248; 83690; 83880; 84484; 85025; 85652; 86038; 86140; 86141; 86481; 86704; 86706; 86803; 87340; 90656; 93005; 93306; 99285; J1650; J1885; J2270; J2470; J2919; J3010; J7120; Q9957

== ENCOUNTER → 2024-05-15 02:08 | Outpatient (BNV) | payer OTHER, SELFPAY | PROVIDERS: Emergency Provider Emergency Medicine; Visit Provider Internal Medicine Cardiovascular Disease | DX: R94.31 Abnormal electrocardiogram [ECG] [EKG] (principal); R00.0 Tachycardia, unspecified; I31.39 Other pericardial effusion (noninflammatory); R93.1 Abnormal findings on diagnostic imaging of heart and coronary circulation | CPT/HCPCS: 93010; 93306 ==

== ENCOUNTER → 2024-05-15 10:58 | Outpatient (BNV) | payer OTHER, SELFPAY | PROVIDERS: Admitting Provider Physician Assistant; Emergency Provider Emergency Medicine; Visit Provider Physician Assistant | DX: I30.9 Acute pericarditis, unspecified (principal) | CPT/HCPCS: 99222; 99239 ==

== ENCOUNTER → 2024-05-15 10:58 | Outpatient (BNV) | payer OTHER, SELFPAY | PROVIDERS: Admitting Provider Physician Assistant; Emergency Provider Emergency Medicine; Visit Provider Internal Medicine Cardiovascular Disease | DX: I30.0 Acute nonspecific idiopathic pericarditis (principal) | CPT/HCPCS: 99222; 99233 ==

== ENCOUNTER 2024-07-03 20:21 | Emergency (ER) | payer OTHER, SELFPAY ==
--- NOTE | ~2024-07-03 | US_ITS ---
EXAMINATION: US TRIPLEX LOWER EXTREMITY, LEFT CLINICAL INFORMATION: Calf cramping COMPARISON: None available. TECHNIQUE: Color-flow triplex imaging with spectral analysis and compression Doppler were performed on the left lower extremity. FINDINGS: Respiratory variation, normal compression and augmented flow are noted throughout the left lower extremity. The visualized common femoral vein, superficial femoral vein, profunda femoral vein, popliteal vein and midcalf peroneal and posterior tibial venous segments show no evidence of deep venous thrombosis. There is no Falcon's cyst. US/US venous duplex LE LT IMPRESSION: No evidence of deep venous thrombosis involving the left lower extremity. Electronically signed by: Nikunj Barreto MD 07/03/2024 10:19 PM [facility]
--- NOTE | ~2024-07-03 | XR_ITS ---
EXAMINATION: LEFT ANKLE, LEFT FOOT CLINICAL INFORMATION: Pain and swelling COMPARISON: Left ankle 12/23/2020 TECHNIQUE: 3 views left ankle, 3 views left foot FINDINGS: No significant bone, joint or soft tissue abnormality is seen. XR/XR foot LT min 3V IMPRESSION: Negative radiographs of the left ankle and foot. Electronically signed by: Jona Nieto MD 07/03/2024 10:29 PM [facility]
--- NOTE | ~2024-07-03 | XR_ITS ---
EXAMINATION: LEFT ANKLE, LEFT FOOT CLINICAL INFORMATION: Pain and swelling COMPARISON: Left ankle 12/23/2020 TECHNIQUE: 3 views left ankle, 3 views left foot FINDINGS: No significant bone, joint or soft tissue abnormality is seen. XR/XR ankle LT min 3V IMPRESSION: Negative radiographs of the left ankle and foot. Electronically signed by: Jona Nieto MD 07/03/2024 10:29 PM [facility]
[2024-07-03 20:25] VITALS: BP 168/105; PULSE 76; RESP 18; TEMP 36.7; O2SAT 98; BMI 29.0
--- NOTE | 2024-07-03 20:26 | ED.LOWEXIN ---
HPI - Extremity Injury (Lower) General Chief Complaint: Extremity Problem Stated Complaint: rt leg pain/swollen ankle Time Seen by Provider: 07/03/24 23:16 Source: patient Mode of arrival: ambulatory Limitations: no limitations History of Present Illness ED Provider: AKUA SOUTH PA-C HPI Narrative: 33-year-old male with past medical history significant for pericarditis on prednisone presents to the ED today for evaluation of left ankle pain/ swelling x1 week. He reports recently returning from [place] where he spent a prolonged period of time walking around [employer]. Reports returning and noticing the outer aspect of his ankle was swollen. Admits to pain primarily on standing and ambulating. No pain at rest. He also admits to generalized muscle cramping x months. He has been following with his PCP for this as they believe it is secondary to his chronic prednisone use and they are currently attempting to taper him off of this. At present, he denies fever, chills, chest pain, shortness of breath, palpitations, calf pain/swelling. Related Data Home Medications ?Medication ?Instructions ?Recorded ?Confirmed ibuprofen 200 mg tablet 600 mg PO TID PRN Pain 05/15/24 05/15/24 trazodone 50 mg tablet 50 mg PO BEDTIME PRN Insomnia 05/15/24 05/15/24 Previous Rx's ?Medication ?Instructions ?Recorded colchicine 0.6 mg tablet 0.6 mg PO BID 4 weeks #56 tabs 05/16/24 omeprazole 20 mg capsule,delayed 20 mg PO DAILY #30 caps 05/16/24 release oxycodone 5 mg tablet 5 mg PO Q6H PRN Pain, Severe (Pain 05/16/24 Scale 7-10) #12 tabs prednisone 10 mg tablet 40 mg (4 x 10 mg) PO DAILY #120 05/16/24 tabs naproxen 500 mg tablet 500 mg PO Q12H PRN pain (scale 07/04/24 score 1-3) #20 tabs Allergies Allergy/AdvReac Type Severity Reaction Status Date / Time No Known Allergies Allergy Verified 07/03/24 20:30 Review of Systems Review of Systems: Constitutional: No fever, chills, fatigue, night sweats, weight changes ENT/Mouth: No ear pain, hearing loss, nasal congestion, sinus pain, rhinorrhea, sore throat Eyes: No eye pain, swelling, redness, vision changes, discharge Cardio: No chest pain, palpitations, SHORT, orthopnea, peripheral edema Pulm: No SOB, cough, sputum, wheezing, dyspnea, hemoptysis GI: No nausea, vomiting, hematemesis, abdominal pain, diarrhea, constipation, hematochezia, melena : No irregular bleeding, dysuria, frequency, urgency, hesitancy, hematuria, flank pain, urinary flow changes, urinary incontinence or retention MSK: No back pain, neck pain, joint pain, myalgias, +left foot/ankle swelling/ pain Skin: No lesions, rashes Neuro: No weakness, numbness, paresthesias, LOC, dizziness, headache Psych: No anxiety/panic, depression, SI/HI, AH/VH All other systems reviewed and are negative. [facility] Past Medical History Attestation statement: The following information was validated with the patient. Source: old records reviewed and nursing notes reviewed Medical History Pericardial effusion Alcohol use disorder, moderate, dependence MDD (major depressive disorder), recurrent episode, moderate Nausea with vomiting Alcohol use disorder Anxiety and depression History of seizure due to alcohol withdrawal ETOH abuse Family History Family History Other Diabetes Social History Social History Household Members: Family Housing: Apartment Do you presently have visiting nurse or other home services: No Alcohol intake: former Patient Tobacco Use Status: Former Tobacco user Tobacco use type: Cigarette Smoked in Last 30 Days: No e-Cigarette/Vaping Use: Never Used Second Hand Smoke Exposure: No Use of substances other than those prescribed or required for medical reasons: No Substance Use Type: Marijuana Advance Directives: Yes Advance Directives on File: Yes Advance Directives Date on File: 11/07/22 service: No Current occupational status: employed Physical Exam Vital Signs: Vital Signs: Last Vital Signs Temp 98.4 F 07/04/24 02:28 Pulse 68 07/04/24 02:28 Resp 16 07/04/24 02:28 BP 124/76 07/04/24 02:28 Pulse Ox 98 07/04/24 02:28 O2 Del Method Room Air 07/03/24 20:25 BMI result Body Mass Index 29.0 Vital signs stable General: Well appearing, in no acute distress. Skin: Warm, dry, intact. No rashes or lesions. Head: Normocephalic, atraumatic. Cardiac: Chest wall symmetric. RRR Lungs: Normal respiratory effort without accessory muscle use. CTA bilaterally. No rales, rhonchi, or wheezes.? Abdomen: Soft, non-tender, non-distended Back: No midline spinous or paraspinal tenderness. No step off deformity. Ext: +minimal swelling/ tenderness over left lateral malleolus. no overlying erythema. no palpable warmth/ crepitus/ deformity. ambulating w/ steady gait. no calf tenderness. nv intact distally. ambulating with steady gait. Neuro: AOx3. Normal speech. Psych: Appropriate mood and affect. Responds appropriately to questions. Course Course Course Narrative: This is a Rapid Medical Exam performed in triage by Madison Guardado PA-C. Full HPI, ROS and PE to be performed by primary ED provider. 33yo M w/PMHx ETOH abuse, pericarditis currently on Prednisone taper, substance use, presenting to the ED c/o left ankle pain and swelling radiating to foot, langston & knee. Reports difficulty walking from pain. Denies injury/fall. Admits to muscle cramping/twitching diffusely but also in Left calf, worse after ambulation. Recently traveled to [place]. Denies hx clots PE: +L ankle swelling w/ttp. NV intact, L calf w/o ttp Plan: labs, XR, US Reevaluation(s) Reevaluation #1: CBC with slight leukocytosis to 11.3. Chemistry without acute electrolyte abnormality requiring intervention. Random glucose 121, no JOSESITO. Normal liver function. Total CK WNL. No rhabdo. X-ray left foot/ankle without fracture, effusion. Venous duplex of the left lower extremity does not show DVT. Patient placed in walking boot and provided with crutches for comfort. Advised to take naproxen at home. Advised to follow up with his PCP regarding is prednisone taper. Patient has remained stable throughout ED visit today. Discussed worrisome signs and symptoms and when to return to the ED. All questions answered at this time. Patient is agreeable with disposition and stable for discharge. Medications Administered Discontinued Medications Generic Name Dose Route Start Last Admin Trade Name Freq PRN Reason Stop Dose Admin Naproxen 500 mg 07/03/24 23:59 07/04/24 00:19 Naproxen 500 Mg Tablet PO 07/04/24 00:00 500 mg ONCE ONE Administration Medical Decision Making Medical Decision Making [facility] Narrative: 33-year-old male with past medical history significant for pericarditis on prednisone presents to the ED today for evaluation of left ankle pain/ swelling x1 week. Vital signs stable. He is nontoxic appearing in no acute distress. Sitting comfortably on the exam bed. On exam of left lower extremity, minimal swelling/ tenderness over left lateral malleolus. no overlying erythema. no palpable warmth/ crepitus/ deformity. ambulating w/ steady gait. no calf tenderness. nv intact distally. ambulating with steady gait. Differential diagnosis includes contusion, msk sprain/ strain, fracture, arthritis. Lower suspicion for gout, pseudo gout. Unlikely septic joint, lyme arthritis, DVT, nv compromise, threat to limb, compartment symdrome. Plan for labs, xr, venous duplex, re-evaluation. Differential Diagnosis Differential Diagnoses: The differential diagnosis associated with the presentation includes As above Admission/Observation Not indicated Lab Data [facility] Lab Attestation statement: I reviewed the patient's lab results. As above 07/03/24 20:34 07/03/24 20:34 Labs: Lab Results 07/03/24 Range/Units 20:34 WBC 11.3 H (4.8-10.8) X10*3/uL RBC 4.64 (4.60-5.80) X10*6/uL Hgb 13.8 L (14.0-18.0) g/dl Hct 40.4 L (42.0-52.0) % MCV 87.1 (80.0-98.0) fL MCH 29.7 (27.0-33.0) pg MCHC 34.2 (31.0-36.0) g/dl RDW 14.4 (11.0-16.0) % Plt Count 359 (160-400) X10*3/uL MPV 8.6 L (9.4-12.4) fL Immature Gran % (Auto) 0.5 H (0.0-0.4) % Neut % (Auto) 88.2 H (45-73) % Lymph % (Auto) 8.5 L (20-40) % [facility] % (Auto) 2.7 (2-11) % Eos % (Auto) 0.0 (0-4) % Baso % (Auto) 0.1 (0-2) % Lymph # (Auto) 1.0 L (1.2-4.9) X10*3/uL [facility] # (Auto) 0.3 (0.1-1.2) X10*3/uL Eos # (Auto) 0.0 (0.0-0.4) X10*3/uL Baso # (Auto) 0.0 (0.0-0.2) X10*3/uL Abs Immat Gran (auto) 0.06 H (0.00-0.03) X10*3/uL Absolute Neuts (auto) 9.9 H (2.0-8.3) x10*3/uL Absolute Nucleated RBC 0.000 (0.0-0.012) X10*3/uL Nucleated RBC % (auto) 0.0 (0.0-0.2) /100WBC PT 10.7 L (10.9-12.4) SEC INR 0.9 (0.9-1.1) Sodium 140 (135-145) mmol/L Potassium 4.0 (3.3-5.1) mmol/L Chloride 104 (96-108) mmol/L Carbon Dioxide 24 (22-29) mmol/L Anion Gap 16 (12-20) BUN 11 (9-16) mg/dL Creatinine 0.98 (0.5-1.4) mg/dL Estim Creat Clear Calc 115.7 Estimated GFR > 60 Random Glucose 121 H (60-115) mg/dL Calcium 9.9 (8.4-10.2) mg/dL Magnesium 1.9 (1.6-2.6) mg/dL Total Bilirubin 0.4 (0.0-1.0) mg/dL Direct Bilirubin 0.1 (0.0-0.5) mg/dL AST 26 (5-37) U/L ALT 31 (0-40) U/L Alkaline Phosphatase 47 (39-117) U/L Total Creatine Kinase 154 (38-174) U/L Total Protein 7.1 (6.5-8.0) g/dL Albumin 4.6 (3.5-5.0) g/dL Independent Interpretation I performed an independent interpretation of an: Plain X-Ray and Ultrasound Interpretation: X-ray left ankle/left foot without fracture. No noted effusion. Venous duplex left lower extremity without VTE. Radiology Impression Discussion of test interpretation with radiology: I have reviewed the radiologist's reading. Radiologist Impression: EXAMINATION: US TRIPLEX LOWER EXTREMITY, LEFT CLINICAL INFORMATION: Calf cramping COMPARISON: None available. TECHNIQUE: Color-flow triplex imaging with spectral analysis and compression Doppler were performed on the left lower extremity. FINDINGS: Respiratory variation, normal compression and augmented flow are noted throughout the left lower extremity. The visualized common femoral vein, superficial femoral vein, profunda femoral vein, popliteal vein and midcalf peroneal and posterior tibial venous segments show no evidence of deep venous thrombosis. There is no Falcon's cyst. US/US venous duplex LE LT IMPRESSION: No evidence of deep venous thrombosis involving the left lower extremity. Electronically signed by: Nikunj Barreto MD 07/03/2024 10:19 PM [employer] EXAMINATION: LEFT ANKLE, LEFT FOOT CLINICAL INFORMATION: Pain and swelling COMPARISON: Left ankle 12/23/2020 TECHNIQUE: 3 views left ankle, 3 views left foot FINDINGS: No significant bone, joint or soft tissue abnormality is seen. XR/XR ankle LT min 3V IMPRESSION: Negative radiographs of the left ankle and foot. Electronically signed by: Jona Nieto MD 07/03/2024 10:29 PM EST RP External Record Review External record reviewed: Inpatient record Prescription Management I considered prescription management with: Pain Medication (naproxen) Chronic Conditions Patient?s care impacted by: Other (Pericarditis) Social Determinants Patient?s care significantly limited by Social Determinants of Health including: Other Social Determinant of Health Procedures Orthopedic Splinting/Casting Injury #1: Side: left Lower Extremity Injury Location: ankle and foot Lower Extremity Immobilizer: boot orthosis Other Orthopedic Equipment: crutches Critical Care Time Critical Care Time Critical Care Time: No Discharge Plan Discharge Clinical Impression: Left ankle sprain Patient Disposition: Home, Self-Care Instructions: Crutch Instructions (ED), R.I.C.E. Treatment (ED), Walking Boot (ED) Additional Instructions: You were evaluated in the ED today for left ankle pain. Your blood work is reassuring. The x-ray of your left foot and ankle is normal. The ultrasound of your left leg does not demonstrate clot. I have sent naproxen to your pharmacy for you to take as needed for pain. I recommend RICE therapy - rest, ice, compress, elevate the left ankle above heart level. You have been placed in a walking boot and provided with crutches for comfort. Please follow up with your PCP this week. Return with new or worsening symptoms. In the case of an emergency call 911. Prescriptions: New naproxen 500 mg tablet 500 mg PO Q12H PRN (Reason: pain (scale score 1-3)) Qty: 20 0RF No Action ibuprofen 200 mg Tablet 600 mg PO TID PRN (Reason: Pain) trazodone 50 mg tablet 50 mg PO BEDTIME PRN (Reason: Insomnia) oxycodone 5 mg Tablet 5 mg PO Q6H PRN (Reason: Pain, Severe (Pain Scale 7-10)) Qty: 12 0RF Rx Instructions: Partial Fill upon patient request. prednisone 10 mg tablet 40 mg PO DAILY Qty: 120 0RF Rx Instructions: Take 40 mg daily until you see your resource director, then taper as directed by your resource director omeprazole 20 mg capsule,delayed release(DR/EC) 20 mg PO DAILY Qty: 30 0RF Rx Instructions: take while on prednisone colchicine 0.6 mg tablet 0.6 mg PO BID 28 Days Qty: 56 0RF Referrals: Benny eLa PA [Primary Care Provider] - Stand Alone Forms: Work/School Release Interventions: ED Discharge Assessment Last Done: 07/04/24 02:28 Discharge Date/Time: 07/04/24 00:24 Print Language: Czech
[2024-07-03 20:40] LABS: Basophils Percent Auto 0.1 % (0-2); Hematocrit 40.4 % (42.0-52.0); Hemoglobin 13.8 g/dl (14.0-18.0); Imm Gran Abs Auto 0.06 X10*3/uL (0.00-0.03); Imm Gran Pct Auto 0.5 % (0.0-0.4); Lymphocytes Percent Auto 8.5 % (20-40); Mean Corpuscular HGB Conc 34.2 g/dl (31.0-36.0); Mean Corpuscular Hemoglobin 29.7 pg (27.0-33.0); Mean Corpuscular Volume 87.1 fL (80.0-98.0); Mean Platelet Volume 8.6 fL (9.4-12.4); Monocytes Absolute Auto 0.3 X10*3/uL (0.1-1.2); Monocytes Percent Auto 2.7 % (2-11); Neutrophils Absolute Auto 9.9 x10*3/uL (2.0-8.3); Neutrophils Percent Auto 88.2 % (45-73); Platelet Count 359 X10*3/uL (160-400); Red Blood Count 4.64 X10*6/uL (4.60-5.80); Red Cell Distribution Width 14.4 % (11.0-16.0); White Blood Count 11.3 X10*3/uL (4.8-10.8)
[2024-07-03 20:41] LABS: MANUAL DIFF FLAG NO
[2024-07-03 20:46] LABS: INTERNATIONAL NORM RATIO 0.9 (0.9-1.1); Prothrombin Time 10.7 SEC (10.9-12.4)
[2024-07-03 20:56] LABS: Alanine Aminotransferase 31 U/L (0-40); Albumin Level 4.6 g/dL (3.5-5.0); Alkaline Phosphatase 47 U/L (39-117); Anion Gap 16 (12-20); Aspartate Amino Transferase 26 U/L (5-37); Bilirubin Direct 0.1 mg/dL (0.0-0.5); Bilirubin Total 0.4 mg/dL (0.0-1.0); Blood Urea Nitrogen 11 mg/dL (9-16); Calcium 9.9 mg/dL (8.4-10.2); Carbon Dioxide 24 mmol/L (22-29); Chloride 104 mmol/L (96-108); Creatinine Clr Calc Pharmacy 115.7; Estimated Glomerular Filt Rate > 60; Glucose Random 121 mg/dL (60-115); Magnesium 1.9 mg/dL (1.6-2.6); Sodium 140 mmol/L (135-145); Total Protein 7.1 g/dL (6.5-8.0)
[2024-07-04] MEDS: NaPROXEN 500 MG TABLET PO (00:19)
[2024-07-04 02:28] VITALS: BP 124/76; PULSE 68; RESP 16; TEMP 36.9; O2SAT 98
== END 2024-07-04 00:24 | disposition home or self-care (01) ==
PROVIDERS: Physician Assistant; Emergency Provider Emergency Medicine; PCP Student in an Organized Health Care Education/Training Program
DX: S93.402A Sprain of unspecified ligament of left ankle, initial encounter (principal); X58.XXXA Exposure to other specified factors, initial encounter; M79.662 Pain in left lower leg; I31.9 Disease of pericardium, unspecified; Y93.9 Activity, unspecified; Y92.9 Unspecified place or not applicable; Y99.9 Unspecified external cause status
CPT/HCPCS: 36415; 73610; 73630; 80048; 80076; 82550; 83735; 85025; 85610; 93971; 99284

== ENCOUNTER 2024-12-27 18:13 | Inpatient (IN) | payer OTHER, SELFPAY ==
--- NOTE | ~2024-12-27 | XR_ITS ---
CLINICAL HISTORY: pain 2 view chest x-ray Comparison: CT/SR - CT CHEST WO IV CON - 05/15/24 05:15 EDT CR/SR - XR CHEST 1V - 05/15/24 02:39 EDT Findings: Small left pleural effusion. No consolidation or pneumothorax. Heart size is normal. No acute fracture. IMPRESSION: 1. Small left pleural effusion. This document has been electronically signed by: Zina Phan MD on 12/27/2024 19:21:57
--- NOTE | ~2024-12-27 | CT_ITS ---
CLINICAL HISTORY: pain CT angiography chest using contrast. 3-D postprocessing Comparison: CR - XR CHEST 2V - 12/27/24 18:[address]/SR - CT CHEST WO IV CON - 05/15/24 05:15 EDT Findings: No pulmonary embolism. No thoracic aorta aneurysm. Heart size within normal limits. RV/LV ratio normal. Small pericardial effusion. Minimal dependent right lower lobe subsegmental atelectasis. There is a small amount of left pleural fluid with mild underlying left lower lobe ground-glass opacities. No pneumothorax. Visualized upper abdomen unremarkable. No acute fractures. Impression: 1. Negative for pulmonary embolism. 2. Small left pleural effusion with mild underlying left lower lobe ground-glass opacities which may represent atelectasis or infectious/inflammatory infiltrates. There is minimal dependent right lower lobe subsegmental atelectasis. 3. Small pericardial effusion. This document has been electronically signed by: Jean Valles MD on 12/28/2024 04:39:01
--- NOTE | 2024-12-27 18:14 | ECG_ITS ---
Test Reason : CHEST PAIN Blood Pressure : */* mmHG Vent. Rate : 122 BPM Atrial Rate : 122 BPM P-R Int : 144 ms QRS Dur : 82 ms QT Int : 310 ms P-R-T Axes : 75 53 27 degrees QTcB Int : 441 ms Sinus tachycardia Early repolarization vs pericarditis Otherwise normal ECG When compared with ECG of 15-May-2024 02:08, Diffuse ST elevations-suspect pericarditis Referred By: Michael Zambrano Electronically Signed By: Bernabe Mcgill
--- NOTE | 2024-12-27 18:32 | ED_ITS ---
HPI - General Adult General Chief complaint: Chest Pain Stated complaint: Chest Pain Time Seen by Provider: 12/27/24 20:58 Source: patient Limitations: no limitations History of Present Illness ED Provider: Luna Cuevas PA-C HPI narrative: 34-year-old male with a history of alcohol use disorder, cocaine use, current treatment for pericarditis with subsequent pericardial effusion, presents with left-sided chest pain. Pain over left chest with radiation to the left shoulder. Patient describes the discomfort as ?my shoulder is breaking?. Pain worse with sitting up, with the exertion, patient feels newly short of breath. Patient states he has had a recent productive cough, and has felt unwell, but never physically took his temperature at home. Patient states he last used alcohol and cocaine 2-1/2 days ago. The patient states he has been sober for quite some time, and he relapsed recently, secondary to psychosocial stressors. Related Data Home Medications ?Medication ?Instructions ?Recorded ?Confirmed ibuprofen 200 mg tablet 600 mg PO TID PRN Pain 05/15/24 12/28/24 pantoprazole 40 mg tablet,delayed 40 mg PO DAILY@0630 12/28/24 12/28/24 release prednisone 10 mg tablet 25 mg PO DAILY 12/28/24 12/28/24 Previous Rx's ?Medication ?Instructions ?Recorded colchicine 0.6 mg tablet 0.6 mg PO BID 4 weeks #56 tabs 05/16/24 Allergies Allergy/AdvReac Type Severity Reaction Status Date / Time No Known Allergies Allergy Verified 12/27/24 18:35 Review of Systems 2 Review of Systems: Yes all other systems are reviewed and are negative Constitutional: Constitutional: Denies fatigue, Denies fever(s) and Reports malaise Cardiovascular: Cardiovascular: Reports chest pain Respiratory: Respiratory: Reports cough Gastrointestinal: Gastrointestinal: Denies abdominal pain, Denies nausea and Denies vomiting Endocrine: Endocrine: Denies fatigue PMFSH Past Medical History Attestation statement: The following information was validated with the patient. Medical History Pericardial effusion Alcohol use disorder, moderate, dependence MDD (major depressive disorder), recurrent episode, moderate Nausea with vomiting Alcohol use disorder Anxiety and depression History of seizure due to alcohol withdrawal ETOH abuse Family History Family History Other Diabetes Social History Social History Household Members: Family Housing: Apartment Do you presently have visiting nurse or other home services: No Alcohol intake: former Patient Tobacco Use Status: Former Tobacco user Tobacco use type: Cigarette e-Cigarette/Vaping Use: Never Used Second Hand Smoke Exposure: No Substance Use Type: Marijuana Advance Directives Date on File: 11/07/22 service: No Current occupational status: employed Physical Exam ED Vital Signs: Vital Signs - 24 hr 12/27/24 20:45 12/27/24 22:15 12/27/24 22:55 Temperature 98.9 F 99.1 F Pulse Rate 111 H Respiratory Rate 19 18 Blood Pressure 134/89 Pulse Oximetry 97 Oxygen Delivery Method Room Air 12/27/24 23:48 12/28/24 00:22 12/28/24 00:42 Temperature Pulse Rate 106 H 94 Respiratory Rate 19 Blood Pressure 104/73 107/72 106/76 Pulse Oximetry 95 Oxygen Delivery Method Room Air 12/28/24 01:02 12/28/24 02:59 Temperature Pulse Rate 107 H 97 Respiratory Rate 15 16 Blood Pressure 101/73 147/103 H Pulse Oximetry 96 98 Oxygen Delivery Method Room Air Room Air BMI result Body Mass Index 28.3 Const Other: Alert overall well-appearing Orientation/consciousness: patient oriented x3 Resp Effort & Inspection: normal respiratory effort Cardio Other: Normal peripheral perfusion Skin Other: Warm dry no rash Neuro General: patient oriented x3, gait normal, no focal motor deficits and CN's II- XI intact bilaterally Psych Other: Cooperative, anxious Course Course Course Narrative: RME, this is a rapid medical exam performed by Jordy Zambrano please refer to primary provider for complete H&P- 34 year old male presents for evaluation of chest pain. Symptoms started a week ago. He reports a history of pericarditis. Plan for cardiac workup Reevaluation(s) Reevaluation #1: This is a sepsis focused exam formed at 11:15 p.m. on December 27, the patient had a significant leukocytosis, blood cultures and a lactic were ordered the lactic is elevated at 2.3, starting ceftriaxone giving IV fluid. He is afebrile, rectal temp 99.1? Time: 23:15 Reevaluation #2: Lactic improved to 1.6 Time: 01:11 Reevaluation #3: I assumed care of this patient from my colleague, physician assistant head cashier Luna Cuevas at 14:00 hours pending the patient's CT pulmonary angiogram. I did review the radiology reading. Patient had no pulmonary embolism. There is a small left pleural effusion with mild left lower lobe ground-glass opacities. Patient also had a small pericardial effusion. This result was reviewed by the hospitalist, Dr. Prescott and he did accept the patient onto the hospitalist service. Time: 05:25 Medications Administered Generic Name Dose Route Start Last Admin Trade Name Freq PRN Reason Stop Dose Admin Acetaminophen 975 mg 12/28/24 06:06 12/28/24 16:35 Acetaminophen 325 Mg Tablet PO 975 mg Q6H PRN Administration Pain, Mild 1-3,fever,headache Colchicine 0.6 mg 12/28/24 09:00 12/28/24 10:12 Colchicine 0.6 Mg Tablet PO 0.6 mg BID EL Administration Enoxaparin Sodium 40 mg 12/28/24 06:15 12/28/24 06:38 Enoxaparin Sodium 40 Mg/0.4 Ml Syringe SUBCUT 40 mg Q24H EL Administration Lidocaine 1 patch 12/28/24 09:00 12/28/24 09:28 Lidocaine 4 % Patch Adh..Patch TRANSDERMA 1 patch DAILY EL Administration Protocol Morphine Sulfate 4 mg 12/28/24 06:12 12/28/24 14:38 Morphine Sulfate 4 Mg/Ml Cartridge IVPUSH 4 mg Q4H PRN Administration Pain, Severe (Pain Scale 7-10) Protocol Omeprazole 20 mg 12/28/24 06:30 12/28/24 06:38 Omeprazole 20 Mg Capsule. PO 20 mg DAILY@0630 EL Administration Oxycodone HCl 5 mg 12/28/24 06:12 12/28/24 09:30 Oxycodone Hcl Immed Release 5 Mg Tablet PO 5 mg Q6H PRN Administration Pain, Moderate(Pain Scale 4-6) Prednisone 25 mg 12/28/24 09:00 12/28/24 10:12 Prednisone 5 Mg Tablet PO 25 mg DAILY EL Administration Sodium Chloride 3 ml 12/28/24 08:00 12/28/24 14:39 0.9 % Sodium Chloride Flush 3 Ml Syringe IVFLUSH 3 ml QSHIFT EL Administration Discontinued Medications Generic Name Dose Route Start Last Admin Trade Name Freq PRN Reason Stop Dose Admin Ceftriaxone Sodium 2 gm 12/27/24 23:15 12/27/24 23:37 Ceftriaxone Sodium 2 Gm Vial IVPUSH 12/27/24 23:16 2 gm ONCE ONE Administration Hydromorphone HCl 1 mg 12/28/24 02:48 12/28/24 02:59 Hydromorphone Hcl 1 Mg/Ml Syringe IVPUSH 12/28/24 02:49 1 mg ONCE ONE Administration Protocol Hydromorphone HCl 1 mg 12/28/24 04:43 12/28/24 04:51 Hydromorphone Hcl 1 Mg/Ml Syringe IVPUSH 12/28/24 04:44 1 mg ONCE STA Administration Protocol Sodium Chloride 1,000 mls @ 999 mls/hr 12/27/24 22:45 12/28/24 00:20 Ns IV 12/27/24 23:45 Infused .Q1H1M EL Infusion Sodium Chloride 1,000 mls @ 999 mls/hr 12/27/24 23:15 12/28/24 00:20 Ns IV 12/28/24 00:15 Infused .Q1H1M EL Infusion Azithromycin 500 mg/ Sodium 250 mls @ 125 mls/hr 12/28/24 00:25 12/28/24 03:20 Chloride IV 12/28/24 02:24 Infused ONCE ONE Infusion Iohexol 65 ml 12/28/24 01:52 12/28/24 01:52 Iohexol 350 Mg/Ml 100 Ml Infus..Btl IV 12/28/24 01:53 65 ml ONCE ONE Administration Ketorolac Tromethamine 15 mg 12/27/24 22:39 12/27/24 22:55 Ketorolac Tromethamine 15 Mg/Ml Vial IVPUSH 12/27/24 22:40 15 mg ONCE ONE Administration Lorazepam 2 mg 12/28/24 03:05 12/28/24 03:12 Lorazepam 1 Mg Tablet PO 12/28/24 03:06 2 mg ONCE ONE Administration Morphine Sulfate 4 mg 12/27/24 22:39 12/27/24 22:55 Morphine Sulfate 4 Mg/Ml Cartridge IVPUSH 12/27/24 22:40 4 mg ONCE ONE Administration Protocol Morphine Sulfate 4 mg 12/28/24 00:25 12/28/24 00:57 Morphine Sulfate 4 Mg/Ml Cartridge IVPUSH 12/28/24 00:26 4 mg ONCE ONE Administration Protocol Ondansetron HCl 4 mg 12/28/24 03:05 12/28/24 03:12 Ondansetron Hcl 4 Mg/2 Ml Vial IVPUSH 12/28/24 03:06 4 mg ONCE ONE Administration Potassium Chloride 40 meq 12/28/24 00:37 12/28/24 00:57 Potassium Chloride Er 20 Meq Tab.Er.Prt PO 12/28/24 00:38 40 meq ONCE ONE Administration Procedures Procedure Narrative Procedure Narrative: Limited echo Was not able to obtain all cardiac windows, from what I was able to visualize, I believe I am seeing a trace pericardial effusion. Overall contractility is grossly normal Medical Decision Making Medical Decision Making MDM Narrative: 34-year-old male with a history of alcohol use disorder, cocaine use, current treatment for pericarditis with subsequent pericardial effusion, presents with left-sided chest pain. Pain over left chest with radiation to the left shoulder. Patient describes the discomfort as ?my shoulder is breaking?. Pain worse with sitting up, with the exertion, patient feels newly short of breath. Patient states he has had a recent productive cough, and has felt unwell, but never physically took his temperature at home. Patient states he last used alcohol and cocaine 2-1/2 days ago. The patient states he has been sober for quite some time, and he relapsed recently, secondary to psychosocial stressors. Patient denies history of IV drug abuse Problem: Alcohol use disorder, cocaine abuse, current for pericarditis History: Per patient I have considered the following differential diagnoses: Pericarditis, new pericardial effusion, endocarditis, ACS, cocaine use, pneumonia, sepsis, PE Plan:This is a sepsis focused exam formed at 11:15 p.m. on December 27, the patient had a significant leukocytosis, blood cultures and a lactic were ordered the lactic is elevated at 2.3, starting ceftriaxone giving IV fluid. He is afebrile, rectal temp 99.1?. With screening labs, chest x-ray was also ordered, he has a new left pleural effusion, this could be accounting for his discomfort, however he is also admits treatment for pericarditis. Underlying pneumonia can not be excluded, my treatment is focused on Respiratory etiology at this time, adding azithromycin. In regard to his pericarditis, I did perform bedside echo, it was limited, however I do feel like I have see a trace pericardial effusion. EKG and cardiac enzymes were ordered. I am repeating a cardiac enzyme, adding on inflammatory markers. The patient has not use cocaine in several days, he is not febrile, he is still tachycardic despite being medicated for his pain, adding on a dimer. I did consider endocarditis, however the patient does not have a history of IV drug abuse, I did not see an obvious vegetation on my limited bedside echo I have independently reviewed the following tests: Labs: Significant leukocytosis with left shift, ESR and CRP are markedly elevated, patient is mildly hypokalemic at 3, no additional electrolyte abnormalities, troponin x2 are negative EKG: Sinus tachycardia, rate of 122, ST elevations in lateral leads, QTC 441 Chest x-ray:Findings: Small left pleural effusion. No consolidation or pneumothorax. Heart size is normal. No acute fracture. IMPRESSION: 1. Small left pleural effusion. CT chest: Lab Data MDM Lab Attestation statement: I reviewed the patient's lab results. 12/27/24 19:55 12/27/24 19:55 Labs: Lab Results 12/27/24 12/27/24 12/27/24 Range/Units 19:55 19:56 22:40 WBC 22.6 H (4.8-10.8) X10*3/uL RBC 4.58 L (4.60-5.80) X10*6/uL Hgb 14.2 (14.0-18.0) g/dl Hct 40.9 L (42.0-52.0) % MCV 89.3 (80.0-98.0) fL MCH 31.0 (27.0-33.0) pg MCHC 34.7 (31.0-36.0) g/dl RDW 13.2 (11.0-16.0) % Plt Count 369 (160-400) X10*3/uL MPV 8.7 L (9.4-12.4) fL Immature Gran % (Auto) 0.7 H (0.0-0.4) % Neut % (Auto) 72.6 (45-73) % Lymph % (Auto) 13.0 L (20-40) % [place] % (Auto) 13.5 H (2-11) % Eos % (Auto) 0.0 (0-4) % Baso % (Auto) 0.2 (0-2) % Lymph # (Auto) 2.9 (1.2-4.9) X10*3/uL [place] # (Auto) 3.1 H (0.1-1.2) X10*3/uL Eos # (Auto) 0.0 (0.0-0.4) X10*3/uL Baso # (Auto) 0.0 (0.0-0.2) X10*3/uL Abs Immat Gran (auto) 0.16 H (0.00-0.03) X10*3/uL Absolute Neuts (auto) 16.4 H (2.0-8.3) x10*3/uL Absolute Nucleated RBC 0.000 (0.0-0.012) X10*3/uL Nucleated RBC % (auto) 0.0 (0.0-0.2) /100WBC Smear Tech's Comments VERIFIED ESR 36 H (0-15) MM/HR D-Dimer High Sensitivty 473 NG/ML Sodium 141 (135-145) mmol/L Potassium 3.0 L D (3.3-5.1) mmol/L Chloride 101 (96-108) mmol/L Carbon Dioxide 24 (22-29) mmol/L Anion Gap 19 (12-20) BUN 4 L (9-16) mg/dL Creatinine 0.58 (0.5-1.4) mg/dL Estim Creat Clear Calc 191.5 Estimated GFR > 60 Random Glucose 98 (60-115) mg/dL Lactic Acid 2.3 H* (0.5-2.0) mmol/L Lactic Acid F/U @ 2Hr (0.5-2.0) mmol/L Calcium 9.4 (8.4-10.2) mg/dL Magnesium 2.0 (1.6-2.6) mg/dL Total Bilirubin 0.6 (0.0-1.0) mg/dL AST 20 (5-37) U/L ALT 20 (0-40) U/L Alkaline Phosphatase 62 (39-117) U/L Total Creatine Kinase 63 (38-174) U/L Troponin I High Sens < 2.7 < 2.7 (<3.5-35.0) ng/L C-Reactive Protein 26.78 H (< or = 0.50) mg/dL Total Protein 7.5 (6.5-8.0) g/dL Albumin 4.6 (3.5-5.0) g/dL Lipase 19 (8-78) U/L Ethyl Alcohol 201 mg/dL Influenza Type A (PCR) NEGATIVE (Negative) Influenza Type B (PCR) NEGATIVE (Negative) RSV RNA Qual (PCR) NEGATIVE (Negative) SARS-CoV-2 RNA (RT-PCR) NEGATIVE (Negative) 12/28/24 Range/Units 01:11 WBC (4.8-10.8) X10*3/uL RBC (4.60-5.80) X10*6/uL Hgb (14.0-18.0) g/dl Hct (42.0-52.0) % MCV (80.0-98.0) fL MCH (27.0-33.0) pg MCHC (31.0-36.0) g/dl RDW (11.0-16.0) % Plt Count (160-400) X10*3/uL MPV (9.4-12.4) fL Immature Gran % (Auto) (0.0-0.4) % Neut % (Auto) (45-73) % Lymph % (Auto) (20-40) % [place] % (Auto) (2-11) % Eos % (Auto) (0-4) % Baso % (Auto) (0-2) % Lymph # (Auto) (1.2-4.9) X10*3/uL [place] # (Auto) (0.1-1.2) X10*3/uL Eos # (Auto) (0.0-0.4) X10*3/uL Baso # (Auto) (0.0-0.2) X10*3/uL Abs Immat Gran (auto) (0.00-0.03) X10*3/uL Absolute Neuts (auto) (2.0-8.3) x10*3/uL Absolute Nucleated RBC (0.0-0.012) X10*3/uL Nucleated RBC % (auto) (0.0-0.2) /100WBC Smear Tech's Comments ESR (0-15) MM/HR D-Dimer High Sensitivty NG/ML Sodium (135-145) mmol/L Potassium (3.3-5.1) mmol/L Chloride (96-108) mmol/L Carbon Dioxide (22-29) mmol/L Anion Gap (12-20) BUN (9-16) mg/dL Creatinine (0.5-1.4) mg/dL Estim Creat Clear Calc Estimated GFR Random Glucose (60-115) mg/dL Lactic Acid (0.5-2.0) mmol/L Lactic Acid F/U @ 2Hr 1.6 (0.5-2.0) mmol/L Calcium (8.4-10.2) mg/dL Magnesium (1.6-2.6) mg/dL Total Bilirubin (0.0-1.0) mg/dL AST (5-37) U/L ALT (0-40) U/L Alkaline Phosphatase (39-117) U/L Total Creatine Kinase (38-174) U/L Troponin I High Sens (<3.5-35.0) ng/L C-Reactive Protein (< or = 0.50) mg/dL Total Protein (6.5-8.0) g/dL Albumin (3.5-5.0) g/dL Lipase (8-78) U/L Ethyl Alcohol mg/dL Influenza Type A (PCR) (Negative) Influenza Type B (PCR) (Negative) RSV RNA Qual (PCR) (Negative) SARS-CoV-2 RNA (RT-PCR) (Negative) Radiology Impression Radiologist Impression: CT angiography chest using contrast. 3-D postprocessing Comparison: CR - XR CHEST 2V - 12/27/24 18:[address]/SR - CT CHEST WO IV CON - 05/15/24 05:15 EDT Findings: No pulmonary embolism. No thoracic aorta aneurysm. Heart size within normal limits. RV/LV ratio normal. Small pericardial effusion. Minimal dependent right lower lobe subsegmental atelectasis. There is a small amount of left pleural fluid with mild underlying left lower lobe ground-glass opacities. No pneumothorax. Visualized upper abdomen unremarkable. No acute fractures. Impression: 1. Negative for pulmonary embolism. 2. Small left pleural effusion with mild underlying left lower lobe ground-glass opacities which may represent atelectasis or infectious/inflammatory infiltrates. There is minimal dependent right lower lobe subsegmental atelectasis. 3. Small pericardial effusion. This document has been electronically signed by: Jean Valles MD on 12/28/2024 04:39:01 Critical Care Time Critical Care Time Critical Care Time: Yes Total Critical Care Time: 30 Attestation: I Luna Cuevas PA-C have performed 30 minutes of critical care time not including lines and procedures Discharge Plan Discharge Clinical Impression: Chest pain, Acute pericardial effusion Pneumonia Qualifiers: Laterality: left Lung location: lower lobe of lung Patient Disposition: Admitted As Inpatient Interventions: Admission Worksheet (ED) Last Done: 12/28/24 08:00 Discharge Date/Time: 12/28/24 14:08
[2024-12-27 18:33] VITALS: BP 145/97; PULSE 122; RESP 18; TEMP 37.1; O2SAT 98; BMI 28.3
[2024-12-27 20:05] LABS: Basophils Percent Auto 0.2 % (0-2); Hematocrit 40.9 % (42.0-52.0); Hemoglobin 14.2 g/dl (14.0-18.0); Imm Gran Abs Auto 0.16 X10*3/uL (0.00-0.03); Imm Gran Pct Auto 0.7 % (0.0-0.4); Lymphocytes Absolute Auto 2.9 X10*3/uL (1.2-4.9); MANUAL DIFF FLAG SCAN; Mean Corpuscular HGB Conc 34.7 g/dl (31.0-36.0); Mean Corpuscular Volume 89.3 fL (80.0-98.0); Mean Platelet Volume 8.7 fL (9.4-12.4); Monocytes Absolute Auto 3.1 X10*3/uL (0.1-1.2); Monocytes Percent Auto 13.5 % (2-11); Neutrophils Absolute Auto 16.4 x10*3/uL (2.0-8.3); Neutrophils Percent Auto 72.6 % (45-73); Platelet Count 369 X10*3/uL (160-400); Red Blood Count 4.58 X10*6/uL (4.60-5.80); Red Cell Distribution Width 13.2 % (11.0-16.0); SCAN SMEAR FLAG 1; White Blood Count 22.6 X10*3/uL (4.8-10.8)
[2024-12-27 20:20] LABS: Ethanol 201 mg/dL
[2024-12-27 20:24] LABS: Alanine Aminotransferase 20 U/L (0-40); Albumin Level 4.6 g/dL (3.5-5.0); Alkaline Phosphatase 62 U/L (39-117); Anion Gap 19 (12-20); Aspartate Amino Transferase 20 U/L (5-37); Bilirubin Total 0.6 mg/dL (0.0-1.0); Blood Urea Nitrogen 4 mg/dL (9-16); Calcium 9.4 mg/dL (8.4-10.2); Carbon Dioxide 24 mmol/L (22-29); Chloride 101 mmol/L (96-108); Creatinine Clr Calc Pharmacy 191.5; Estimated Glomerular Filt Rate > 60; Glucose Random 98 mg/dL (60-115); Lipase 19 U/L (8-78); SLIDE REVIEW VERIFIED; Sodium 141 mmol/L (135-145); Total Protein 7.5 g/dL (6.5-8.0)
[2024-12-27 20:35] LABS: Troponin-I High Sensitivity < 2.7 ng/L (<3.5-35.0)
[2024-12-27 20:42] LABS: Influenza A PCR NEGATIVE (Negative); Influenza B PCR NEGATIVE (Negative); Resp Syncy Virus RNA Qual PCR NEGATIVE (Negative); SARS COV2 PCR INHOUSE NEGATIVE (Negative)
[2024-12-27 20:45] VITALS: BP 134/89; PULSE 111; RESP 19; TEMP 37.2; O2SAT 97
[2024-12-27 21:45] VITALS: PULSE 105
[2024-12-27 22:15] VITALS: TEMP 37.3
[2024-12-27 22:55] VITALS: RESP 18
[2024-12-27] MEDS: 0.9 % Sodium Chloride 1,000 ML 999 ML IV ×2 (22:55→23:37)
[2024-12-27] MEDS: Morphine Sulfate 4 MG/ML CARTRIDGE IVPUSH (22:55)
[2024-12-27] MEDS: Ketorolac Tromethamine 15 MG/ML VIAL IVPUSH (22:55)
[2024-12-27 22:59] LABS: D Dimer High Sensitivity 473 NG/ML
[2024-12-27 23:01] LABS: C Reactive Protein 26.78 mg/dL (< or = 0.50)
[2024-12-27 23:05] LABS: Lactic Acid 2.3 mmol/L (0.5-2.0)
[2024-12-27 23:11] LABS: Troponin-I High Sensitivity < 2.7 ng/L (<3.5-35.0)
[2024-12-27 23:22] LABS: Erythrocyte Sedimentation Rate 36 MM/HR (0-15)
[2024-12-27] MEDS: cefTRIAXone sodium 2 GM VIAL IVPUSH (23:37)
[2024-12-27 23:48] VITALS: BP 104/73; PULSE 106; RESP 19; O2SAT 95
[2024-12-28] VITALS (12 sets, daily range): BP systolic 101–147; BP diastolic 72–103; PULSE 94–125; RESP 15–25; TEMP 36.7–37.8; O2SAT 94–98; BMI 29.6
--- NOTE | 2024-12-28 00:24 | PC.NURSE ---
pt reports pain worsening to 9/10 again, PA made aware.
[2024-12-28 00:45] LABS: Reflex Lactate? Lactic Acid Added
[2024-12-28] MEDS: Morphine Sulfate 4 MG/ML CARTRIDGE IVPUSH ×6 (00:57→23:22)
[2024-12-28] MEDS: Azithromycin 500 MG in 0.9 % Sodium Chloride 250 ML 125 MG IV ×2 (00:57→23:21)
[2024-12-28] MEDS: Potassium Chloride ER 20 MEQ TAB.ER.PRT 40 MEQ PO (00:57)
[2024-12-28 01:33] LABS: ~Lactic Acid-LAB USE ONLY 1.6 mmol/L (0.5-2.0)
[2024-12-28] MEDS: iohexoL 350 MG/ML 100 ML INFUS..BTL 65 ML IV (01:52)
--- NOTE | 2024-12-28 02:52 | PC.NURSE ---
Addendum entered by Anita Perez 12/28/24 03:23: pt also became tachy, dry heaves. states has been sober >1 year however binge drinking since monday approx 12 beers/day. does not think he is withdrawing. Lucinda MULLER made aware and ordered zofran and po ativan. pt in agreement for both. given per mar. Original Note: pt awoke, yelling. reports pain increased back to 9/10. Lucinda MULLER aware. requested ice water.
[2024-12-28] MEDS: HYDROmorphone HCl 1 MG/ML SYRINGE IVPUSH ×2 (02:59→04:51)
[2024-12-28] MEDS: LORazepam 1 MG TABLET 2 MG PO (03:12)
[2024-12-28] MEDS: ondansetron HCL 4 MG/2 ML VIAL IVPUSH (03:12)
--- NOTE | 2024-12-28 06:24 | P.HPHOSP_ITS ---
History of Present Illness Date of Service: 12/28/24 Attending physician on admission: Mo Prescott Chief Complaint: chest pain Patient is a 34 year old male with a past medical history significant for history of alcohol use disorder, cocaine use, current treatment for pericarditis with subsequent pericardial effusion (hx pericardiocentesis at [facility]), who presented to the ED due to left-sided chest pain radiating to the left shoulder. He describes this as feeling that his shoulder is broken and he feels extremity stopping on his shoulder with cleat. The pain is worse with sitting up as well as with exertion. He does have a history of cocaine use he reports a recent relapse, last use 2.5 days ago. He also relapse with alcohol he reports drinking for the past 2 days. In addition to the symptoms he is also experiencing some shortness of breath with a productive cough. He is unable to take a deep breath due to the chest pain. He reports he is currently taking prednisone 25 mg every morning and he was in so much pain yesterday morning that he took it early. Review of Systems 2 Constitutional: Constitutional: Denies chills, Denies fatigue and Denies fever(s) Eyes: Eyes: Denies change in vision and Denies photophobia ENT: Denies nasal congestion, Denies nasal discharge and Denies sore throat Cardiovascular: Cardiovascular: Reports chest pain, Denies rapid heart rate, Denies leg edema, Denies lightheadedness and Reports dyspnea Respiratory: Respiratory: Reports chest congestion, Reports cough, Reports dyspnea and Denies wheezing Gastrointestinal: Gastrointestinal: Denies abdominal pain, Denies diarrhea, Denies nausea and Denies vomiting Genitourinary: Genitourinary: Denies dysuria and Denies urinary urgency Musculoskeletal: Musculoskeletal: Denies myalgias Integumentary/Breasts: Skin/Breast: Denies rash Neurologic: Denies confusion Psychiatric: Psychiatric: Denies confusion Endocrine: Endocrine: Denies fatigue Hematologic/Lymphatic: Hematologic/Lymphatic: Denies easy bleeding and Denies easy bruising Allergic/Immunologic: Allergic/Immunologic: Denies wheezing PMFSH Medical History Pericardial effusion Alcohol use disorder, moderate, dependence MDD (major depressive disorder), recurrent episode, moderate Nausea with vomiting Alcohol use disorder Anxiety and depression History of seizure due to alcohol withdrawal ETOH abuse Functional capacity: independent ambulation Family History Other Diabetes Social History Household Members: Family Housing: Apartment Do you presently have visiting nurse or other home services: No Alcohol intake: former Patient Tobacco Use Status: Former Tobacco user Tobacco use type: Cigarette Smoked in Last 30 Days: No e-Cigarette/Vaping Use: Never Used Second Hand Smoke Exposure: No Use of substances other than those prescribed or required for medical reasons: No Substance Use Type: Marijuana Advance Directives: Yes Advance Directives on File: Yes Advance Directives Date on File: 11/07/22 Do you have a plan to hurt others: No Plan service: No Current occupational status: employed Narrative: no smoking. recent relapse from alcohol 2 days ago as well as cocaine 2.5 days ago Meds Allergies Allergy/AdvReac Type Severity Reaction Status Date / Time No Known Allergies Allergy Verified 12/27/24 18:35 Active Medications: Current Medications Acetaminophen (Acetaminophen 325 Mg Tablet) 975 mg PO Q6H PRN PRN Reason: Pain, Mild 1-3,fever,headache Calcium Carbonate (Calcium Carbonate 750 Mg Tab.Chew) 750 mg PO Q4H PRN PRN Reason: Heartburn Ceftriaxone Sodium (Ceftriaxone Sodium 2 Gm Vial) 2 gm IVPUSH Q24H [facility] Colchicine (Colchicine 0.6 Mg Tablet) 0.6 mg PO BID [facility] Enoxaparin Sodium (Enoxaparin Sodium 40 Mg/0.4 Ml Syringe) 40 mg SUBCUT Q24H [facility] Azithromycin 500 mg/ Sodium (Chloride) 250 mls @ 125 mls/hr IV Q24H [facility] Lidocaine (Lidocaine 4 % Patch Adh..Patch) 1 patch TRANSDERMA DAILY [facility]; Protocol Magnesium Hydroxide (Milk Of Magnesia 30 Ml Oral.Susp) 30 ml PO DAILY PRN PRN Reason: Constipation Melatonin (Melatonin 3 Mg Tablet) 6 mg PO BEDTIME PRN PRN Reason: Insomnia Morphine Sulfate (Morphine Sulfate 4 Mg/Ml Cartridge) 4 mg IVPUSH Q4H PRN; Protocol PRN Reason: Pain, Severe (Pain Scale 7-10) Naproxen (Naproxen 500 Mg Tablet) 500 mg PO Q12H PRN PRN Reason: Pain, Mild (Pain Scale 1-3) Omeprazole (Omeprazole 20 Mg Capsule.Dr) 20 mg PO DAILY@0630 [facility] Ondansetron HCl (Ondansetron Hcl 4 Mg/2 Ml Vial) 4 mg IVPUSH Q8H PRN PRN Reason: Nausea and Vomiting Oxycodone HCl (Oxycodone Hcl Immed Release 5 Mg Tablet) 5 mg PO Q6H PRN PRN Reason: Pain, Moderate(Pain Scale 4-6) Prednisone (Prednisone 5 Mg Tablet) 25 mg PO DAILY [facility] Sodium Chloride (0.9 % Sodium Chloride Flush 3 Ml Syringe) 3 ml IVFLUSH QSHIFT [facility] Home Medications ?Medication ?Instructions ?Recorded ?Confirmed ?Last Taken ?Type ibuprofen 200 mg tablet 600 mg PO TID PRN Pain 05/15/24 05/15/24 05/14/24 History trazodone 50 mg tablet 50 mg PO BEDTIME PRN Insomnia 05/15/24 05/15/24 Unknown History Physical Exam 2 Vital Signs and Narrative: Vital Signs: Last Vital Signs Temp 99.1 F 12/27/24 22:15 Pulse 97 12/28/24 02:59 Resp 16 12/28/24 02:59 BP 147/103 H 12/28/24 02:59 Pulse Ox 98 12/28/24 02:59 O2 Del Method Room Air 12/28/24 02:59 BMI result Body Mass Index 28.3 General: AOx3, appears uncomfortable, Resp: unable to take a deep breath. crackles LLL, no wheezing CVS: RRR, difficult to auscultate, pain with sitting forward GI: +BS, NT, no distention Skin: Warm, dry Neuro: Cranial nerves II-XII grossly intact bilaterally. Motor grossly intact bilaterally Extremities: No LE edema Psych: Appropriate affect Const: General: No confusion Orientation/consciousness: No confusion Eyes: Direct Ophthalmoscopy: No photophobia Neuro: General: No confusion Results Labs 12/27/24 19:55 12/27/24 19:55 Labs: Laboratory Results - last 24 hr 12/27/24 12/27/24 12/27/24 19:55 19:56 22:40 MCV 89.3 MCH 31.0 MCHC 34.7 RDW 13.2 Plt Count 369 MPV 8.7 L Immature Gran % (Auto) 0.7 H Neut % (Auto) 72.6 Lymph % (Auto) 13.0 L [place] % (Auto) 13.5 H Eos % (Auto) 0.0 Baso % (Auto) 0.2 Lymph # (Auto) 2.9 [place] # (Auto) 3.1 H Eos # (Auto) 0.0 Baso # (Auto) 0.0 Abs Immat Gran (auto) 0.16 H Absolute Neuts (auto) 16.4 H Absolute Nucleated RBC 0.000 Nucleated RBC % (auto) 0.0 Smear Tech's Comments VERIFIED ESR 36 H D-Dimer High Sensitivty 473 Anion Gap 19 Estim Creat Clear Calc 191.5 Estimated GFR > 60 Random Glucose 98 Lactic Acid 2.3 H* Lactic Acid F/U @ 2Hr Calcium 9.4 Magnesium 2.0 Total Bilirubin 0.6 AST 20 ALT 20 Alkaline Phosphatase 62 Total Creatine Kinase 63 C-Reactive Protein 26.78 H Total Protein 7.5 Albumin 4.6 Lipase 19 Ethyl Alcohol 201 Influenza Type A (PCR) NEGATIVE Influenza Type B (PCR) NEGATIVE RSV RNA Qual (PCR) NEGATIVE SARS-CoV-2 RNA (RT-PCR) NEGATIVE 12/28/24 01:11 MCV MCH MCHC RDW Plt Count MPV Immature Gran % (Auto) Neut % (Auto) Lymph % (Auto) [place] % (Auto) Eos % (Auto) Baso % (Auto) Lymph # (Auto) [place] # (Auto) Eos # (Auto) Baso # (Auto) Abs Immat Gran (auto) Absolute Neuts (auto) Absolute Nucleated RBC Nucleated RBC % (auto) Smear Tech's Comments ESR D-Dimer High Sensitivty Anion Gap Estim Creat Clear Calc Estimated GFR Random Glucose Lactic Acid Lactic Acid F/U @ 2Hr 1.6 Calcium Magnesium Total Bilirubin AST ALT Alkaline Phosphatase Total Creatine Kinase C-Reactive Protein Total Protein Albumin Lipase Ethyl Alcohol Influenza Type A (PCR) Influenza Type B (PCR) RSV RNA Qual (PCR) SARS-CoV-2 RNA (RT-PCR) Assessment and Plan (1) Sepsis: Status: Acute (2) Pneumonia: Qualifiers: Laterality: left Lung location: lower lobe of lung Status: Acute (3) Pleural effusion: Status: Acute (4) Acute pericardial effusion: Status: Acute (5) Recurrent idiopathic pericarditis: Status: Acute (6) Hypokalemia: Status: Acute (7) Cocaine use: Status: Acute Plan Patient is a 34 year old male with a past medical history significant for history of alcohol use disorder, cocaine use, current treatment for pericarditis with subsequent pericardial effusion (hx pericardiocentesis at [facility]), who presented to the ED due to left-sided chest pain radiating to the left shoulder. Sepsis secondary to pneumonia with small left pleural effusion - WBC 20, tachycardic, lactic acid 2.3 culture, blood cultures x2 pending, not severe sepsis - chest x-ray with small left pleural effusion - chest CTA negative for pulmonary embolism. Small left pleural effusion with mild underlying left lower lobe brown glass opacities which may represent atelectasis or infectious/inflammatory infiltrates. Small pericardial effusion. - bedside echo with trace pericardial effusion - started on ceftriaxone and azithromycin in ED, continue - monitor CBC and BMP Chest pain secondary to pericardial effusion/pericarditis - previous pericardiocentesis and [facility] - recent cocaine use - bedside echo with trace pericardial effusion, CTA with mild pericardial effusion - ESR and CRP elevated - echo - continue naproxen, prednisone, colchicine - omeprazole for GI prophylaxis - lidocaine patch per patient request - Cardiology consult Acute hypokalemia - potassium 3.0 - given 40 mEq p.o. - follow BMP Cocaine use - recent relapse - addiction med consult History alcohol use disorder - recent relapse - etoh level 201 - addiction med consult Full code VTE prophylaxis: Lovenox Patient with sepsis secondary to pneumonia with small left pleural effusion complicated by pericardiocentesis and pericarditis, requiring admission for at least 2 midnight stay for IV antibiotics, pain management and cardiology consultation. Quality Stroke Does the patient have a stroke diagnosis?: No VTE Prior VTE?: No VTE Risk Level:: Medical - moderate - high VTE Device Contraindication: Treatment Not Indicated VTE Drug Contraindication: N/A - Med Ordered
[2024-12-28] MEDS: Acetaminophen 325 MG TABLET 975 MG PO ×2 (06:37→16:35)
[2024-12-28] MEDS: Omeprazole 20 MG CAPSULE.DR PO (06:38)
[2024-12-28] MEDS: Enoxaparin Sodium 40 MG/0.4 ML SYRINGE SUBCUT (06:38)
--- NOTE | 2024-12-28 07:18 | P.PNIM_ITS ---
Subjective Subjective Date of Service: 12/28/24 Interval History: f/u on pleural effusion, sepsis pain is better Physical Exam 2 Vital Signs: Vital Signs: Last Vital Signs Temp 98.9 F 12/28/24 06:38 Pulse 122 H 12/28/24 06:38 Resp 15 12/28/24 06:38 BP 132/84 12/28/24 06:38 Pulse Ox 98 12/28/24 06:38 O2 Del Method Room Air 12/28/24 06:38 BMI result Body Mass Index 28.3 Const: Other: General: AO X 3, no acute distress Resp: CTA bilateral CVS: S1,S2,RRR GI: +BS, NT, no distention Skin: No rash Neuro: motor grossly intact Psych: appropriate affect Objective Data Active Medications Acetaminophen (Acetaminophen 325 Mg Tablet) 975 mg PO Q6H PRN PRN Reason: Pain, Mild 1-3,fever,headache Last Admin: 12/28/24 06:37 Dose: 975 mg Documented By: MINA Calcium Carbonate (Calcium Carbonate 750 Mg Tab.Chew) 750 mg PO Q4H PRN PRN Reason: Heartburn Ceftriaxone Sodium (Ceftriaxone Sodium 2 Gm Vial) 2 gm IVPUSH Q24H [facility] Colchicine (Colchicine 0.6 Mg Tablet) 0.6 mg PO BID [facility] Enoxaparin Sodium (Enoxaparin Sodium 40 Mg/0.4 Ml Syringe) 40 mg SUBCUT Q24H [facility] Last Admin: 12/28/24 06:38 Dose: 40 mg Documented By: MINA Azithromycin 500 mg/ Sodium (Chloride) 250 mls @ 125 mls/hr IV Q24H [facility] Lidocaine (Lidocaine 4 % Patch Adh..Patch) 1 patch TRANSDERMA DAILY [facility]; Protocol Magnesium Hydroxide (Milk Of Magnesia 30 Ml Oral.Susp) 30 ml PO DAILY PRN PRN Reason: Constipation Melatonin (Melatonin 3 Mg Tablet) 6 mg PO BEDTIME PRN PRN Reason: Insomnia Morphine Sulfate (Morphine Sulfate 4 Mg/Ml Cartridge) 4 mg IVPUSH Q4H PRN; Protocol PRN Reason: Pain, Severe (Pain Scale 7-10) Last Admin: 12/28/24 06:38 Dose: 4 mg Documented By: MINA Naproxen (Naproxen 500 Mg Tablet) 500 mg PO Q12H PRN PRN Reason: Pain, Mild (Pain Scale 1-3) Omeprazole (Omeprazole 20 Mg Capsule.Dr) 20 mg PO DAILY@0630 [facility] Last Admin: 12/28/24 06:38 Dose: 20 mg Documented By: MINA Ondansetron HCl (Ondansetron Hcl 4 Mg/2 Ml Vial) 4 mg IVPUSH Q8H PRN PRN Reason: Nausea and Vomiting Oxycodone HCl (Oxycodone Hcl Immed Release 5 Mg Tablet) 5 mg PO Q6H PRN PRN Reason: Pain, Moderate(Pain Scale 4-6) Prednisone (Prednisone 5 Mg Tablet) 25 mg PO DAILY [facility] Sodium Chloride (0.9 % Sodium Chloride Flush 3 Ml Syringe) 3 ml IVFLUSH QSHIFT [facility] Labs 12/27/24 19:55 12/27/24 19:55 Labs: Laboratory Results - last 24 hr 12/27/24 12/27/24 12/27/24 19:55 19:56 22:40 MCV 89.3 MCH 31.0 MCHC 34.7 RDW 13.2 Plt Count 369 MPV 8.7 L Immature Gran % (Auto) 0.7 H Neut % (Auto) 72.6 Lymph % (Auto) 13.0 L [place] % (Auto) 13.5 H Eos % (Auto) 0.0 Baso % (Auto) 0.2 Lymph # (Auto) 2.9 [place] # (Auto) 3.1 H Eos # (Auto) 0.0 Baso # (Auto) 0.0 Abs Immat Gran (auto) 0.16 H Absolute Neuts (auto) 16.4 H Absolute Nucleated RBC 0.000 Nucleated RBC % (auto) 0.0 Smear Tech's Comments VERIFIED ESR 36 H D-Dimer High Sensitivty 473 Anion Gap 19 Estim Creat Clear Calc 191.5 Estimated GFR > 60 Random Glucose 98 Lactic Acid 2.3 H* Lactic Acid F/U @ 2Hr Calcium 9.4 Magnesium 2.0 Total Bilirubin 0.6 AST 20 ALT 20 Alkaline Phosphatase 62 Total Creatine Kinase 63 C-Reactive Protein 26.78 H Total Protein 7.5 Albumin 4.6 Lipase 19 Ethyl Alcohol 201 Influenza Type A (PCR) NEGATIVE Influenza Type B (PCR) NEGATIVE RSV RNA Qual (PCR) NEGATIVE SARS-CoV-2 RNA (RT-PCR) NEGATIVE 12/28/24 01:11 MCV MCH MCHC RDW Plt Count MPV Immature Gran % (Auto) Neut % (Auto) Lymph % (Auto) [place] % (Auto) Eos % (Auto) Baso % (Auto) Lymph # (Auto) [place] # (Auto) Eos # (Auto) Baso # (Auto) Abs Immat Gran (auto) Absolute Neuts (auto) Absolute Nucleated RBC Nucleated RBC % (auto) Smear Tech's Comments ESR D-Dimer High Sensitivty Anion Gap Estim Creat Clear Calc Estimated GFR Random Glucose Lactic Acid Lactic Acid F/U @ 2Hr 1.6 Calcium Magnesium Total Bilirubin AST ALT Alkaline Phosphatase Total Creatine Kinase C-Reactive Protein Total Protein Albumin Lipase Ethyl Alcohol Influenza Type A (PCR) Influenza Type B (PCR) RSV RNA Qual (PCR) SARS-CoV-2 RNA (RT-PCR) Assessment and Plan (1) Pneumonia: Status: Acute (2) Pleural effusion: Status: Acute Plan Patient is a 34 year old male with a past medical history significant for history of alcohol use disorder, cocaine use, current treatment for pericarditis with subsequent pericardial effusion (hx pericardiocentesis at [facility]), who presented to the ED due to left-sided chest pain radiating to the left shoulder. Sepsis secondary to pneumonia with small left pleural effusion, remains septic, continue Ceftiaxone and azithro follow cultures Chest pain secondary to pericardial effusion/pericarditis previous pericardiocentesis and [facility] effusion looks small continue naproxen, prednisone, colchicine cardiology follow up Tachycardia likely related to pain, pericardial effuusion, drug use Acute hypokalemia, 3.0, replaced follow bmp Cocaine use/substance use addiction med consult History alcohol use disorder [place], addiction med Full code VTE prophylaxis: Lovenox need for inpt: IV Abx for sepsis, PNA w/ parapenumonic effusion Quality Stroke Does the patient have a stroke diagnosis?: No VTE Prior VTE?: No VTE Risk Level:: Medical - moderate - high VTE Device Contraindication: Treatment Not Indicated VTE Drug Contraindication: N/A - Med Ordered
--- NOTE | 2024-12-28 09:12 | PHA.MEDREC ---
Pharmacy Consult ? Medication Reconciliation Pharmacy has completed the medication reconciliation.Med rec complete. Spoke with patient and compared with pharmacy claim history
[2024-12-28] MEDS: Lidocaine 4 % Patch ADH..PATCH 1 PATCH TRANSDERMA (09:28)
[2024-12-28] MEDS: 0.9 % Sodium Chloride Flush 3 ML SYRINGE IVFLUSH ×3 (09:28→19:36)
[2024-12-28] MEDS: oxyCODONE HCl Immed Release 5 MG TABLET PO (09:30)
[2024-12-28] MEDS: predniSONE 5 MG TABLET 25 MG PO (10:12)
[2024-12-28] MEDS: Colchicine 0.6 MG TABLET PO ×2 (10:12→19:36)
--- NOTE | 2024-12-28 11:00 | CA_ITS ---
Transthoracic Echocardiogram Patient (Last, First, Middle): Jack Burns, Gender: Male Date of : 1990 Age: 34 Procedure Date: 12/28/2024 Procedure Type: Transthoracic Echocardiogram Location: ER Height: 175.26 cm Weight: 85.73 kg BSA: 2.02 m2 Heart Rate: bpm BP: 130 / 95 mmHg Mobile Equipment Operator: DEANDRA Referring MD: Antonina Vallejo PA-C Symptoms: pericardial effusion Study Quality: Fair ECG Rhythm: Sinus Tachycardia Conclusions: - Normal left ventricular size and systolic function. There is mildly increased left ventricular wall thickness. The visually estimated ejection fraction is between 60-65%. - There is abnormal septal motion with excessive respiratory change. - There is no evidence of pericardial effusion. Findings Left Ventricle Normal left ventricular size and systolic function. There is mildly increased left ventricular wall thickness. The visually estimated ejection fraction is between 60-65%. There is no evidence of regional wall motion abnormalities. There is abnormal septal motion with excessive respiratory change. Diastolic function is normal for age. Right Ventricle Normal right ventricular cavity size and systolic function. Atria The left atrium is normal in size. The right atrium is normal in size. Aortic Valve Normal aortic valve structure and function. There is no aortic valve stenosis. There is no aortic valve regurgitation. Mitral Valve The mitral valve appears normal. There is no mitral valve regurgitation. There is no mitral valve stenosis. Pulmonic Valve The pulmonic valve is normal. There is no pulmonic valve regurgitation. Tricuspid Valve Normal tricuspid valve structure and function. There is no tricuspid valve regurgitation. Normal right atrial pressure. There is no evidence of pulmonary hypertension. Great Vessels The aorta was not well visualized. The visualized portions of the pulmonary artery and branches are normal. Venous The inferior vena cava is normal in size and collapses less than 50% with inspiration. Pericardium/Pleural There is no evidence of pericardial effusion. Prior Study Comparison Changes noted compared to prior study dated: 05/15/2024. No pericardial effusion noted. Measurements 2D Linear Measurements IVSd: 1.20 0.6-0.9/0.6-1.0 cm LVIDd: 4.22 3.9-5.3/4.2-5.9 cm LVIDd Index: 2.09 2.4-3.2/2.2-3.1 cm/m2 LVIDs: 2.75 2.0-3.6 cm LVPWd: 1.25 0.7-1.1 cm Ao Root: 3.10 2.1-3.5 cm LA Diam: 3.20 2.7-3.8/3.0-4.0 cm LAIDs Index: 1.58 1.5-2.3 cm/m2 LV Mass: 230.45 67-162/88-224 g LV Mass Index: 114.09 43-95/49-115 g/m2 LVOT Diam: 2.30 3.0+(-)1.3 cm Mitral Valve MV Pk E: 1.05 MV PK A: 1.02 MV Decel Time: 77.00 E/A: 1.00 E'Lateral: 8.49 E'Medial: 11.00 E/E' Med: 9.50 E/E' Lat: 12.40 PHT: 22.00 MVA PHT: 10.00 Decel [place]: 13.76 Aortic Valve AoV Pk Saud: 1.31 AoV Mn Saud: 0.96 AoV VTI: 0.19 AoV Pk Grad: 7.00 Aov Mn Grad: 4.00 GIULIANO Cont.VTI: 2.71 LVOT LVOT Pk Saud: 0.88 LVOT Mn Saud: 0.57 LVOT VTI: 0.12 LVOT Pk Grad: 3.00 LVOT Mn Grad: 2.00 LVOT Diam: 2.30 LVOT Area: 4.15 Diastolic Function MV Pk E: 1.05 MV Pk A: 1.02 E/A: 1.00 E'Medial: 11.00 E/E' Med: 9.50 E' Laterial: 8.49 E/E' Lat: 12.40 Right Ventricle TAPSE (mm): 22.00 Tricuspid Valve TR Pk Saud: 2.21 TR Pk Grad: 20.00 RA Press: 3.00 RVSP: 23.00 Great Vessels Aorta Ao Root-2D: 3.10 2.0-3.7 cm Pulmonary Valve PV Pk Saud: 1.14 Peak PV Grad: 5.00 Updated in Other Vendor System with Status of Final Bernabe Mcgill MD electronically signed on 12/28/2024 3:51:41 PM with status of Final
--- NOTE | 2024-12-28 11:38 | PM.CNCAR ---
History of Present Illness History of Present Illness Date of Service: 12/28/24 Requesting physician: Júnior Morgan Chief complaint: Pericardtits, CP Narrative: [age] year gentleman with cocaine abuse and previous pericardial effusion and pericarditis presenting with sharp chest pains ongoing for few days. He is describing a left-sided pleuritic chest pain arm numbness and neck pain. He has tenderness over the left side of his chest wall. He is saying that these symptoms are similar to his episodes of pericarditis. It appears he had pericarditis a year ago and at that time had pericardial effusion and underwent pericardiocentesis. He is saying after that he was on colchicine and subsequently was started on prednisone by Cardiology. I need to get more records about who he has been following with because he does not remember the name. He is saying he has been on prednisone since then for the last year and currently is on 25 mg of prednisone. He is saying when the doses decrease he gets similar symptoms. He is on ibuprofen 600 mg 3 times a day which he has been using along with colchicine. Cocaine use couple of days ago. He is saying that last time he used was a year ago and he has not been using regularly. [facility] Past Medical History Medical History Pericardial effusion Alcohol use disorder, moderate, dependence MDD (major depressive disorder), recurrent episode, moderate Nausea with vomiting Alcohol use disorder Anxiety and depression History of seizure due to alcohol withdrawal ETOH abuse Family History Family History Other Diabetes Social History Social History Household Members: Family Housing: Apartment Do you presently have visiting nurse or other home services: No Alcohol intake: former Patient Tobacco Use Status: Former Tobacco user Tobacco use type: Cigarette Smoked in Last 30 Days: No e-Cigarette/Vaping Use: Never Used Second Hand Smoke Exposure: No Use of substances other than those prescribed or required for medical reasons: No Substance Use Type: Marijuana Advance Directives: Yes Advance Directives on File: Yes Advance Directives Date on File: 11/07/22 Do you have a plan to hurt others: No Plan service: No Current occupational status: employed Meds Allergies Allergy/AdvReac Type Severity Reaction Status Date / Time No Known Allergies Allergy Verified 12/27/24 18:35 Active Medications: Current Medications Acetaminophen (Acetaminophen 325 Mg Tablet) 975 mg PO Q6H PRN PRN Reason: Pain, Mild 1-3,fever,headache Last Admin: 12/28/24 06:37 Dose: 975 mg Calcium Carbonate (Calcium Carbonate 750 Mg Tab.Chew) 750 mg PO Q4H PRN PRN Reason: Heartburn Ceftriaxone Sodium (Ceftriaxone Sodium 2 Gm Vial) 2 gm IVPUSH Q24H [facility] Colchicine (Colchicine 0.6 Mg Tablet) 0.6 mg PO BID [facility] Last Admin: 12/28/24 10:12 Dose: 0.6 mg Enoxaparin Sodium (Enoxaparin Sodium 40 Mg/0.4 Ml Syringe) 40 mg SUBCUT Q24H [facility] Last Admin: 12/28/24 06:38 Dose: 40 mg Azithromycin 500 mg/ Sodium (Chloride) 250 mls @ 125 mls/hr IV Q24H [facility] Lidocaine (Lidocaine 4 % Patch Adh..Patch) 1 patch TRANSDERMA DAILY [facility]; Protocol Last Admin: 12/28/24 09:28 Dose: 1 patch Magnesium Hydroxide (Milk Of Magnesia 30 Ml Oral.Susp) 30 ml PO DAILY PRN PRN Reason: Constipation Melatonin (Melatonin 3 Mg Tablet) 6 mg PO BEDTIME PRN PRN Reason: Insomnia Morphine Sulfate (Morphine Sulfate 4 Mg/Ml Cartridge) 4 mg IVPUSH Q4H PRN; Protocol PRN Reason: Pain, Severe (Pain Scale 7-10) Last Admin: 12/28/24 10:40 Dose: 4 mg Naproxen (Naproxen 500 Mg Tablet) 500 mg PO Q12H PRN PRN Reason: Pain, Mild (Pain Scale 1-3) Omeprazole (Omeprazole 20 Mg Capsule.Dr) 20 mg PO DAILY@0630 [facility] Last Admin: 12/28/24 06:38 Dose: 20 mg Ondansetron HCl (Ondansetron Hcl 4 Mg/2 Ml Vial) 4 mg IVPUSH Q8H PRN PRN Reason: Nausea and Vomiting Oxycodone HCl (Oxycodone Hcl Immed Release 5 Mg Tablet) 5 mg PO Q6H PRN PRN Reason: Pain, Moderate(Pain Scale 4-6) Last Admin: 12/28/24 09:30 Dose: 5 mg Prednisone (Prednisone 5 Mg Tablet) 25 mg PO DAILY [facility] Last Admin: 12/28/24 10:12 Dose: 25 mg Sodium Chloride (0.9 % Sodium Chloride Flush 3 Ml Syringe) 3 ml IVFLUSH QSHIFT [facility] Last Admin: 12/28/24 09:28 Dose: 3 ml Home Medications ?Medication ?Instructions ?Recorded ?Confirmed ?Last Taken ?Type ibuprofen 200 mg tablet 600 mg PO TID PRN Pain 05/15/24 12/28/24 05/14/24 History pantoprazole 40 mg tablet,delayed 40 mg PO DAILY@0630 12/28/24 12/28/24 12/27/24 History release prednisone 10 mg tablet 25 mg PO DAILY 12/28/24 12/28/24 12/27/24 History Physical Exam Vital Signs: Vital Signs: Last Vital Signs Temp 98.1 F 12/28/24 11:03 Pulse 125 H 12/28/24 11:03 Resp 16 12/28/24 11:03 BP 130/95 H 12/28/24 11:03 Pulse Ox 97 12/28/24 11:03 O2 Del Method Room Air 12/28/24 11:03 BMI result Body Mass Index 28.3 GENERAL APPEARANCE: Distressed due to pain.. NECK: no carotid bruit, no jugular venous distention. SKIN: no suspicious lesions, warm and dry. HEART: no murmurs, regular rate and rhythm. Tachycardic. No friction rub. LUNGS: clear to auscultation bilaterally. ABDOMEN: soft, nontender. EXTREMITIES: no edema. PERIPHERAL PULSES: equal. NEUROLOGIC: No gross deficits, AAO X 3 Objective Labs and Meds 12/27/24 19:55 12/27/24 19:55 Lab results: Laboratory Results - last 24 hr 12/27/24 12/27/24 12/27/24 19:55 19:56 22:40 WBC 22.6 H RBC 4.58 L Hgb 14.2 Hct 40.9 L MCV 89.3 MCH 31.0 MCHC 34.7 RDW 13.2 Plt Count 369 MPV 8.7 L Immature Gran % (Auto) 0.7 H Neut % (Auto) 72.6 Lymph % (Auto) 13.0 L [place] % (Auto) 13.5 H Eos % (Auto) 0.0 Baso % (Auto) 0.2 Lymph # (Auto) 2.9 [place] # (Auto) 3.1 H Eos # (Auto) 0.0 Baso # (Auto) 0.0 Abs Immat Gran (auto) 0.16 H Absolute Neuts (auto) 16.4 H Absolute Nucleated RBC 0.000 Nucleated RBC % (auto) 0.0 Smear Tech's Comments VERIFIED ESR 36 H D-Dimer High Sensitivty 473 Sodium 141 Potassium 3.0 L D Chloride 101 Carbon Dioxide 24 Anion Gap 19 BUN 4 L Creatinine 0.58 Estim Creat Clear Calc 191.5 Estimated GFR > 60 Random Glucose 98 Lactic Acid 2.3 H* Lactic Acid F/U @ 2Hr Calcium 9.4 Magnesium 2.0 Total Bilirubin 0.6 AST 20 ALT 20 Alkaline Phosphatase 62 Total Creatine Kinase 63 Troponin I High Sens < 2.7 < 2.7 C-Reactive Protein 26.78 H Total Protein 7.5 Albumin 4.6 Lipase 19 Ethyl Alcohol 201 Influenza Type A (PCR) NEGATIVE Influenza Type B (PCR) NEGATIVE RSV RNA Qual (PCR) NEGATIVE SARS-CoV-2 RNA (RT-PCR) NEGATIVE 12/28/24 01:11 WBC RBC Hgb Hct MCV MCH MCHC RDW Plt Count MPV Immature Gran % (Auto) Neut % (Auto) Lymph % (Auto) [place] % (Auto) Eos % (Auto) Baso % (Auto) Lymph # (Auto) [place] # (Auto) Eos # (Auto) Baso # (Auto) Abs Immat Gran (auto) Absolute Neuts (auto) Absolute Nucleated RBC Nucleated RBC % (auto) Smear Tech's Comments ESR D-Dimer High Sensitivty Sodium Potassium Chloride Carbon Dioxide Anion Gap BUN Creatinine Estim Creat Clear Calc Estimated GFR Random Glucose Lactic Acid Lactic Acid F/U @ 2Hr 1.6 Calcium Magnesium Total Bilirubin AST ALT Alkaline Phosphatase Total Creatine Kinase Troponin I High Sens C-Reactive Protein Total Protein Albumin Lipase Ethyl Alcohol Influenza Type A (PCR) Influenza Type B (PCR) RSV RNA Qual (PCR) SARS-CoV-2 RNA (RT-PCR) Assessment and Plan (1) Pericarditis: Qualifiers: Chronicity: acute Pericarditis type: unspecified type Qualified Code(s): I30.9 - Acute pericarditis, unspecified Status: Acute Plan [age] gentleman with cocaine use and alcohol use presenting with left-sided sharp chest pain on background of known pericarditis and pericardial effusion with previous pericardiocentesis. He has been on chronic prednisone. Prednisone unfortunately increase the risk of recurrence and it appears he had recurrent episodes previously and was eventually started on steroids. He is saying the as the doses decreased he gets symptoms and these are the worst symptoms he has had. Clinically does not appear to be in cardiac tamponade. We will check echocardiogram today to rule out any significant pericardial effusion. Increase the prednisone to 50 mg daily. Continue the colchicine as before. Pain control. He maybe a candidate for Arcalyst. Thank you for allowing me to participate in the care of your patient. Please feel free to contact me if you have any questions. Procedures Date of Service Date of Service: 12/28/24
[2024-12-28 14:44] LABS: Amphetamine Screen Urine Not Detected (Not Detect); Barbiturates, Urine Not Detected (Not Detect); Benzodiazepines Screen Urine Not Detected (Not Detect); Buprenorphine Scr Not Detected (Not Detect); Cannabinoid Screen Urine POSITIVE (Not Detect); Cocaine Screen Urine Not Detected (Not Detect); Fentanyl, urine Not Detected (Not Detect); Methadone Screen, Urine Not Detected (Not Detect); Opiate Screen Urine POSITIVE (Not Detect); Oxycodone Screen Urine Positive (Not Detect); Phencyclidine Screen Urine Not Detected (Not Detect)
--- NOTE | 2024-12-28 14:49 | MHC.CM.PN ---
Patient lives @ home w/ . Functionally independent. Denies use of DME or services. PCP Jaison MULLER HCP on file and verified. DP: Goal is home self care. to transport. CM will continue to follow.
[2024-12-28] MEDS: cefTRIAXone sodium 2 GM VIAL IVPUSH (23:21)
[2024-12-29] VITALS (7 sets, daily range): BP systolic 111–137; BP diastolic 68–91; PULSE 66–98; RESP 16–18; TEMP 36.3–37.7; O2SAT 94–97
[2024-12-29] MEDS: oxyCODONE HCl Immed Release 5 MG TABLET PO (02:16)
[2024-12-29] MEDS: Morphine Sulfate 4 MG/ML CARTRIDGE IVPUSH (05:14)
[2024-12-29] MEDS: Omeprazole 20 MG CAPSULE.DR PO (05:15)
[2024-12-29] MEDS: Enoxaparin Sodium 40 MG/0.4 ML SYRINGE SUBCUT (05:15)
[2024-12-29] MEDS: NaPROXEN 500 MG TABLET PO (07:38)
[2024-12-29] MEDS: Acetaminophen 325 MG TABLET 975 MG PO ×2 (07:40→17:20)
[2024-12-29] MEDS: predniSONE 5 MG TABLET 25 MG PO ×2 (07:41→12:04)
[2024-12-29] MEDS: Lidocaine 4 % Patch ADH..PATCH 1 PATCH TRANSDERMA (07:41)
[2024-12-29] MEDS: Colchicine 0.6 MG TABLET PO ×2 (07:41→21:42)
[2024-12-29] MEDS: 0.9 % Sodium Chloride Flush 3 ML SYRINGE IVFLUSH ×3 (07:42→21:43)
[2024-12-29 07:43] LABS: Basophils Percent Auto 0.2 % (0-2); Eosinophils Percent Auto 0.2 % (0-4); Hemoglobin 12.1 g/dl (14.0-18.0); Imm Gran Abs Auto 0.08 X10*3/uL (0.00-0.03); Imm Gran Pct Auto 0.5 % (0.0-0.4); Lymphocytes Absolute Auto 2.7 X10*3/uL (1.2-4.9); Lymphocytes Percent Auto 16.6 % (20-40); MANUAL DIFF FLAG SCAN; Mean Corpuscular HGB Conc 34.6 g/dl (31.0-36.0); Mean Corpuscular Hemoglobin 30.9 pg (27.0-33.0); Mean Corpuscular Volume 89.5 fL (80.0-98.0); Mean Platelet Volume 9.1 fL (9.4-12.4); Monocytes Absolute Auto 1.5 X10*3/uL (0.1-1.2); Monocytes Percent Auto 9.4 % (2-11); Neutrophils Absolute Auto 11.9 x10*3/uL (2.0-8.3); Neutrophils Percent Auto 73.1 % (45-73); Platelet Count 369 X10*3/uL (160-400); Red Blood Count 3.91 X10*6/uL (4.60-5.80); Red Cell Distribution Width 13.2 % (11.0-16.0); SCAN SMEAR FLAG 1; White Blood Count 16.3 X10*3/uL (4.8-10.8)
[2024-12-29 07:58] LABS: Anion Gap 13 (12-20); Blood Urea Nitrogen 6 mg/dL (9-16); Carbon Dioxide 25 mmol/L (22-29); Chloride 102 mmol/L (96-108); Creatinine Clr Calc Pharmacy 192.4; Estimated Glomerular Filt Rate > 60; Glucose Random 86 mg/dL (60-115); Potassium 3.2 mmol/L (3.3-5.1); Sodium 137 mmol/L (135-145)
[2024-12-29 08:10] LABS: SLIDE REVIEW VERIFIED
--- NOTE | 2024-12-29 10:48 | P.PNIM_ITS ---
Subjective Subjective Date of Service: 12/29/24 Interval History: f/u on pleural effusion, sepsis still with pleuric pain Physical Exam 2 Vital Signs: Vital Signs: Last Vital Signs Temp 97.9 F 12/29/24 08:40 Pulse 95 12/29/24 07:34 Resp 18 12/29/24 07:34 BP 123/91 H 12/29/24 07:34 Pulse Ox 95 12/29/24 07:34 O2 Del Method Room Air 12/29/24 07:34 BMI result Body Mass Index 29.6 Objective Data Active Medications Acetaminophen (Acetaminophen 325 Mg Tablet) 975 mg PO Q6H PRN PRN Reason: Pain, Mild 1-3,fever,headache Last Admin: 12/29/24 07:40 Dose: 975 mg Documented By: JUAN ANTONIO Calcium Carbonate (Calcium Carbonate 750 Mg Tab.Chew) 750 mg PO Q4H PRN PRN Reason: Heartburn Ceftriaxone Sodium (Ceftriaxone Sodium 2 Gm Vial) 2 gm IVPUSH Q24H [facility] Last Admin: 12/28/24 23:21 Dose: 2 gm Documented By: GABRIELLA Colchicine (Colchicine 0.6 Mg Tablet) 0.6 mg PO BID [facility] Last Admin: 12/29/24 07:41 Dose: 0.6 mg Documented By: JUAN ANTONIO Enoxaparin Sodium (Enoxaparin Sodium 40 Mg/0.4 Ml Syringe) 40 mg SUBCUT Q24H [facility] Last Admin: 12/29/24 05:15 Dose: 40 mg Documented By: GABRIELLA Azithromycin 500 mg/ Sodium (Chloride) 250 mls @ 125 mls/hr IV Q24H [facility] Last Infusion: 12/29/24 01:25 Dose: Infused Documented By: GABRIELLA Lidocaine (Lidocaine 4 % Patch Adh..Patch) 1 patch TRANSDERMA DAILY [facility]; Protocol Last Admin: 12/29/24 07:41 Dose: 1 patch Documented By: JUAN ANTONIO Magnesium Hydroxide (Milk Of Magnesia 30 Ml Oral.Susp) 30 ml PO DAILY PRN PRN Reason: Constipation Melatonin (Melatonin 3 Mg Tablet) 6 mg PO BEDTIME PRN PRN Reason: Insomnia Morphine Sulfate (Morphine Sulfate 4 Mg/Ml Cartridge) 4 mg IVPUSH Q3H PRN; Protocol PRN Reason: Pain, Severe (Pain Scale 7-10) Naproxen (Naproxen 500 Mg Tablet) 500 mg PO Q12H PRN PRN Reason: Pain, Mild (Pain Scale 1-3) Last Admin: 12/29/24 07:38 Dose: 500 mg Documented By: JUAN ANTONIO Omeprazole (Omeprazole 20 Mg Capsule.Dr) 20 mg PO DAILY@0630 [facility] Last Admin: 12/29/24 05:15 Dose: 20 mg Documented By: GABRIELLA Ondansetron HCl (Ondansetron Hcl 4 Mg/2 Ml Vial) 4 mg IVPUSH Q8H PRN PRN Reason: Nausea and Vomiting Oxycodone HCl (Oxycodone Hcl Immed Release 5 Mg Tablet) 5 mg PO Q6H PRN PRN Reason: Pain, Moderate(Pain Scale 4-6) Last Admin: 12/29/24 02:16 Dose: 5 mg Documented By: GABRIELLA Prednisone (Prednisone 5 Mg Tablet) 25 mg PO DAILY [facility] Last Admin: 12/29/24 07:41 Dose: 25 mg Documented By: JUAN ANTONIO Prednisone (Prednisone 5 Mg Tablet) 25 mg PO ONCE ONE Stop: 12/29/24 10:39 Sodium Chloride (0.9 % Sodium Chloride Flush 3 Ml Syringe) [facility] Last Admin: 12/29/24 07:42 Dose: 3 ml Documented By: JUAN ANTONIO Labs 12/29/24 06:54 12/29/24 06:54 Labs: Laboratory Results - last 24 hr 12/28/24 12/29/24 14:15 06:54 MCV 89.5 MCH 30.9 MCHC 34.6 RDW 13.2 Plt Count 369 MPV 9.1 L Immature Gran % (Auto) 0.5 H Neut % (Auto) 73.1 H Lymph % (Auto) 16.6 L [place] % (Auto) 9.4 Eos % (Auto) 0.2 Baso % (Auto) 0.2 Lymph # (Auto) 2.7 [place] # (Auto) 1.5 H Eos # (Auto) 0.0 Baso # (Auto) 0.0 Abs Immat Gran (auto) 0.08 H Absolute Neuts (auto) 11.9 H Absolute Nucleated RBC 0.000 Nucleated RBC % (auto) 0.0 Smear Tech's Comments VERIFIED Anion Gap 13 Estim Creat Clear Calc 192.4 Estimated GFR > 60 Random Glucose 86 Calcium 9.0 Urine Opiates Screen POSITIVE H Ur Buprenorphine Scrn Not Detected Ur Oxycodone Screen Positive H Urine Methadone Screen Not Detected Urine Fentanyl Screen Not Detected Ur Barbiturates Screen Not Detected Ur Phencyclidine Scrn Not Detected Ur Amphetamines Screen Not Detected U Benzodiazepines Scrn Not Detected Urine Cocaine Screen Not Detected U Marijuana (THC) Screen POSITIVE H Microbiology Microbiology Results: Microbiology 12/27/24 22:47 Blood Culture - Preliminary Blood - Venous No growth after 24 hours. 12/27/24 22:40 Blood Culture - Preliminary Blood - Venous No growth after 24 hours. Assessment and Plan (1) Pneumonia: Status: Acute (2) Pleural effusion: Status: Acute Plan Patient is a 34 year old male with a past medical history significant for history of alcohol use disorder, cocaine use, current treatment for pericarditis with subsequent pericardial effusion (hx pericardiocentesis at [facility]), who presented to the ED due to left-sided chest pain radiating to the left shoulder. Sepsis secondary to pneumonia with small left pleural effusion, remains septic but better, wbc is trending down continue Ceftiaxone and azithro cultures negative thus far Chest pain secondary to pericardial effusion/pericarditis previous [place]esis and [place] effusion looks small continue naproxen, prednisone, colchicine cardiology follow up morphine, oxy for pain Tachycardia likely related to pain, pericardial effuusion, drug use resolved. Acute hypokalemia, 3.2, replaced follow bmp Cocaine use/substance use, oxy, opoioid, karen + addiction med consult History alcohol use disorder ciwa, addiction med Full code VTE prophylaxis: Lovenox need for inpt: IV Abx for sepsis, PNA w/ parapenumonic effusion Quality Stroke Does the patient have a stroke diagnosis?: No VTE Prior VTE?: No VTE Risk Level:: Medical - moderate - high VTE Device Contraindication: Treatment Not Indicated VTE Drug Contraindication: N/A - Med Ordered
[2024-12-29] MEDS: Potassium Chloride ER 20 MEQ TAB.ER.PRT 40 MEQ PO (12:03)
[2024-12-29] MEDS: cefTRIAXone sodium 2 GM VIAL IVPUSH (23:24)
[2024-12-30] MEDS: Azithromycin 500 MG in 0.9 % Sodium Chloride 250 ML 125 MG IV (01:15)
[2024-12-30 04:00] VITALS: BP 121/74; PULSE 81; RESP 18; TEMP 36.7; O2SAT 96
[2024-12-30] MEDS: Omeprazole 20 MG CAPSULE.DR PO (05:42)
[2024-12-30 07:45] LABS: MANUAL DIFF FLAG NO
[2024-12-30 07:50] LABS: Basophils Percent Auto 0.2 % (0-2); Eosinophils Absolute Auto 0.1 X10*3/uL (0.0-0.4); Eosinophils Percent Auto 0.3 % (0-4); Hematocrit 38.2 % (42.0-52.0); Hemoglobin 13.1 g/dl (14.0-18.0); Imm Gran Abs Auto 0.07 X10*3/uL (0.00-0.03); Imm Gran Pct Auto 0.4 % (0.0-0.4); Lymphocytes Percent Auto 12.3 % (20-40); Mean Corpuscular HGB Conc 34.3 g/dl (31.0-36.0); Mean Corpuscular Hemoglobin 30.5 pg (27.0-33.0); Mean Platelet Volume 8.5 fL (9.4-12.4); Monocytes Absolute Auto 1.2 X10*3/uL (0.1-1.2); Monocytes Percent Auto 7.5 % (2-11); Neutrophils Absolute Auto 12.9 x10*3/uL (2.0-8.3); Neutrophils Percent Auto 79.3 % (45-73); Platelet Count 400 X10*3/uL (160-400); Red Blood Count 4.29 X10*6/uL (4.60-5.80); Red Cell Distribution Width 12.7 % (11.0-16.0); White Blood Count 16.3 X10*3/uL (4.8-10.8)
[2024-12-30 07:58] VITALS: BP 117/72; PULSE 86; RESP 20; TEMP 36.4; O2SAT 97
[2024-12-30 08:05] LABS: Anion Gap 13 (12-20); Blood Urea Nitrogen 6 mg/dL (9-16); Calcium 9.1 mg/dL (8.4-10.2); Carbon Dioxide 23 mmol/L (22-29); Chloride 108 mmol/L (96-108); Creatinine Clr Calc Pharmacy 214.2; Estimated Glomerular Filt Rate > 60; Glucose Random 87 mg/dL (60-115); Potassium 3.6 mmol/L (3.3-5.1); Sodium 140 mmol/L (135-145)
[2024-12-30] MEDS: Lidocaine 4 % Patch ADH..PATCH 1 PATCH TRANSDERMA (08:29)
[2024-12-30] MEDS: predniSONE 20 MG TABLET 40 MG PO (08:29)
[2024-12-30] MEDS: oxyCODONE HCl Immed Release 5 MG TABLET PO (08:29)
[2024-12-30] MEDS: Colchicine 0.6 MG TABLET PO (08:29)
[2024-12-30] MEDS: 0.9 % Sodium Chloride Flush 3 ML SYRINGE IVFLUSH (08:29)
--- NOTE | 2024-12-30 08:53 | PM.DS ---
DS: Providers Provider Date of Service: 12/30/24 Date of admission: 12/28/24 05:10 Date of discharge: 12/30/24 Primary care physician: YOHANA Bryant Consults: 12/28/24 06:23 Consult to Cardiology Routine Consulting Provider: [facility] Reason for consultation: pericardial effusion, pericarditis Has provider been notified: No 12/28/24 06:36 Addiction Medicine Provider Routine Consulting Provider: Addiction Covering Reason for consultation: cocaine, etoh Has provider been notified: No DS: Diagnosis Discharge Diagnosis (1) Pneumonia: Status: Acute (2) Pleural effusion: Status: Acute DS: Summary Hospital Course Hospital Course: admission Chief Complaint: chest pain Patient is a 34 year old male with a past medical history significant for history of alcohol use disorder, cocaine use, current treatment for pericarditis with subsequent pericardial effusion (hx pericardiocentesis at [facility]), who presented to the ED due to left-sided chest pain radiating to the left shoulder. He describes this as feeling that his shoulder is broken and he feels extremity stopping on his shoulder with cleat. The pain is worse with sitting up as well as with exertion. He does have a history of cocaine use he reports a recent relapse, last use 2.5 days ago. He also relapse with alcohol he reports drinking for the past 2 days. In addition to the symptoms he is also experiencing some shortness of breath with a productive cough. He is unable to take a deep breath due to the chest pain. He reports he is currently taking prednisone 25 mg every morning and he was in so much pain yesterday morning that he took it early. hospital course: Patient is a 34 year old male with a past medical history significant for history of alcohol use disorder, cocaine use, current treatment for pericarditis, who presented to the ED due to left-sided chest pain radiating to the left shoulder. CXR and CT showed left lower lobe pneumonia with small peleural effusion, CT further showed a small pericardial effusion. He was admitted for IV abx for the pneumonia and met sepsis criteria. Over the course of hospitalization, his symptoms have signficantly improved. He is presently without shortness of breath, he has some residual pain on left side and shoulder but this is chronic he says. He is afebrile, WBC is 16 but related to chronic steroid use. He will be transition to oral Augmentin for 7 more days. Clinically sepsis resolved. Chest pain secondary to chronic pericarditis, usually on colchicine and and prednisone. CT showed possible small effusion, yet echo showed no effusion. See by cardiology with recommendation to increase Prednisone to 50 mg, patient prefers 40 mg and to continue colchicine. Ultimately to robbie Prednsione back down to 25 within a week or so, he's instructed on this and to follow up with his chemical compounder helper and PCP Tachycardia likely related to pain, pericardial effuusion, drug use resolved. Acute hypokalemia, 3.2, replaced and corrected, presently 3.6 Cocaine use/substance use, oxy, opoioid, karen + addiction med consult, instucted on avoiding substance use History alcohol use disorder ciwa, addiction med Time Attestation Discharge Coordination Time (in mins): 45 Quality: Safe Use of Opioids Does Pt have an Active Cancer Diagnosis on the Problem List?: No Quality: Stroke Does the patient have a stroke diagnosis?: No Physical Exam Vital Signs: Vital Signs: Last Vital Signs Temp 97.5 F 12/30/24 07:58 Pulse 86 12/30/24 07:58 Resp 20 12/30/24 07:58 BP 117/72 12/30/24 07:58 Pulse Ox 97 12/30/24 07:58 O2 Del Method Room Air 12/30/24 07:58 BMI result Body Mass Index 29.6 DS: Data Data Completed and Pending Completed studies during hospitalization [Text1]: Procedures Detoxification Services for Substance Abuse Treatment (05/09/23) Labs on day of discharge: Laboratory Results - last 24 hr 12/30/24 07:40 WBC 16.3 H RBC 4.29 L Hgb 13.1 L Hct 38.2 L MCV 89.0 MCH 30.5 MCHC 34.3 RDW 12.7 Plt Count 400 MPV 8.5 L Immature Gran % (Auto) 0.4 Neut % (Auto) 79.3 H Lymph % (Auto) 12.3 L [place] % (Auto) 7.5 Eos % (Auto) 0.3 Baso % (Auto) 0.2 Lymph # (Auto) 2.0 [place] # (Auto) 1.2 Eos # (Auto) 0.1 Baso # (Auto) 0.0 Abs Immat Gran (auto) 0.07 H Absolute Neuts (auto) 12.9 H Absolute Nucleated RBC 0.000 Nucleated RBC % (auto) 0.0 Sodium 140 Potassium 3.6 Chloride 108 Carbon Dioxide 23 Anion Gap 13 BUN 6 L Creatinine 0.53 Estim Creat Clear Calc 214.2 Estimated GFR > 60 Random Glucose 87 Calcium 9.1 Preliminary micro results at discharge 12/27/24 22:47 Blood Culture - Preliminary Blood - Venous No growth after 48 hours. 12/27/24 22:40 Blood Culture - Preliminary Blood - Venous No growth after 48 hours. Discharge Plan Discharge Anticipated Discharge Date/Time: 12/30/24 09:04 Patient Disposition: Home, Self-Care Discharge Diagnosis: Pneumonia, sepsis, pericarditis, pleural effusion Referrals: Benny Lea PA [Primary Care Provider] - 1 Week Discharge Medications: New amoxicillin-pot clavulanate 875-125 mg tablet 1 tab PO BID Qty: 10 0RF Continued ibuprofen 200 mg Tablet 600 mg PO TID PRN (Reason: Pain) colchicine 0.6 mg tablet 0.6 mg PO BID 28 Days Qty: 56 0RF prednisone 10 mg tablet 25 mg PO DAILY pantoprazole 40 mg Tablet,Delayed Release (Dr/Ec) 40 mg PO DAILY@0630 Diet: Advance to usual diet Activity on Discharge: As tolerated Stand Alone Forms: Patient Portal Discharge page Print Language: Latvian Care Plan Goals: recoveryfrom pneumonia with effusion and pericarditis Health Concerns: penumonia pleural effusion pericarditis Plan of Treatment: take Augmentin for pneumonia continue prednisone and colchicine for pericarditis follow up with primary care doctor and chemical compounder helper Assessment: see above
== END 2024-12-30 09:45 | disposition home or self-care (01) | DRG 720 ==
LOC: HO.ED 12-28 03:36 → HO.EDOVER 12-28 05:45 → HO.IMC 12-28 12:35
PROVIDERS: Physician Assistant; Physician Assistant Medical; Admitting Provider Student in an Organized Health Care Education/Training Program; Emergency Provider Emergency Medicine Emergency Medical Services; PCP Student in an Organized Health Care Education/Training Program; Visit Provider Internal Medicine
DX: A41.9 Sepsis, unspecified organism (principal); J91.8 Pleural effusion in other conditions classified elsewhere; I31.9 Disease of pericardium, unspecified; J18.9 Pneumonia, unspecified organism; F14.10 Cocaine abuse, uncomplicated; F10.90 Alcohol use, unspecified, uncomplicated; E87.6 Hypokalemia; Z20.822 Contact with and (suspected) exposure to COVID-19; Y90.7 Blood alcohol level of 200-239 mg/100 ml; Z79.52 Long term (current) use of systemic steroids; Z87.891 Personal history of nicotine dependence; Z79.899 Other long term (current) drug therapy
CPT/HCPCS: 0241U; 36415; 71046; 71275; 80048; 80053; 80307; 82550; 83605; 83690; 83735; 84484; 85025; 85379; 85652; 86140; 87040; 93005; 93306; 99285; J0456; J0696; J1171; J1650; J1885; J2270; J2405; Q9957; Q9967

== ENCOUNTER → 2024-12-27 18:14 | Outpatient (BNV) | payer OTHER, SELFPAY | PROVIDERS: Admitting Provider Student in an Organized Health Care Education/Training Program; Emergency Provider Emergency Medicine Emergency Medical Services; PCP Student in an Organized Health Care Education/Training Program; Visit Provider Internal Medicine Cardiovascular Disease | DX: R00.0 Tachycardia, unspecified (principal) | CPT/HCPCS: 93010 ==

== ENCOUNTER → 2024-12-27 18:33 | Outpatient (BNV) | payer OTHER, SELFPAY | PROVIDERS: PCP Student in an Organized Health Care Education/Training Program; Visit Provider Radiology Diagnostic Radiology | DX: J90 Pleural effusion, not elsewhere classified (principal) | CPT/HCPCS: 71046 ==

== ENCOUNTER → 2024-12-28 00:17 | Outpatient (BNV) | payer OTHER, SELFPAY | PROVIDERS: Emergency Provider Emergency Medicine Emergency Medical Services; PCP Student in an Organized Health Care Education/Training Program; Visit Provider Radiology Diagnostic Radiology | DX: J90 Pleural effusion, not elsewhere classified (principal); I31.39 Other pericardial effusion (noninflammatory) | CPT/HCPCS: 71275 ==

== ENCOUNTER → 2024-12-28 05:10 | Outpatient (BNV) | payer OTHER, SELFPAY | PROVIDERS: Admitting Provider Student in an Organized Health Care Education/Training Program; Emergency Provider Emergency Medicine Emergency Medical Services; PCP Student in an Organized Health Care Education/Training Program; Visit Provider Physician Assistant | DX: J18.9 Pneumonia, unspecified organism (principal); J90 Pleural effusion, not elsewhere classified | CPT/HCPCS: 99223; 99232; 99239; 99499 ==

== ENCOUNTER → 2024-12-28 05:10 | Outpatient (BNV) | payer OTHER, SELFPAY | PROVIDERS: Admitting Provider Student in an Organized Health Care Education/Training Program; Emergency Provider Emergency Medicine Emergency Medical Services; PCP Student in an Organized Health Care Education/Training Program; Visit Provider Internal Medicine Cardiovascular Disease | DX: I30.9 Acute pericarditis, unspecified (principal); I51.0 Cardiac septal defect, acquired | CPT/HCPCS: 93306; 99223 ==

== ENCOUNTER 2025-01-05 10:24 | Emergency (ER) | payer OTHER, SELFPAY ==
--- NOTE | ~2025-01-05 | XR_ITS ---
CLINICAL HISTORY: chest pain 1 view chest x-ray. Comparison: CT/SR - CT ANGIO CHEST PE PROTOCOL - 12/28/24 01:41 EDT Findings: The lungs are adequately expanded. No focal consolidation. No effusion or pneumothorax. Cardiac and mediastinal contours are within normal limits. No acute osseous abnormality Impression: No acute process. This document has been electronically signed by: Kingston Sam MD on 01/05/2025 11:24:20
[2025-01-05 10:31] VITALS: BP 170/113; BP 176/108; PULSE 120; PULSE 130; RESP 22; TEMP 36.7; O2SAT 100; O2SAT 94; BMI 28.7
--- NOTE | 2025-01-05 10:44 | ECG_ITS ---
Test Reason : CHEST PAIN Blood Pressure : */* mmHG Vent. Rate : 111 BPM Atrial Rate : 111 BPM P-R Int : 160 ms QRS Dur : 88 ms QT Int : 292 ms P-R-T Axes : 56 53 60 degrees QTcB Int : 397 ms Sinus tachycardia Nonspecific T wave abnormality Abnormal ECG When compared with ECG of 27-Dec-2024 18:18, ST no longer elevated in Lateral leads Referred By: Brenda Aguilar Electronically Signed By: DANIELLE MARION
--- NOTE | 2025-01-05 10:47 | ED.GENADULT ---
HPI - General Adult General Chief complaint: General Medical Stated complaint: CP,ETOH USE/?OTHER,CRISIS PER EMS Time Seen by Provider: 01/05/25 10:29 Source: patient, EMS and old records reviewed Mode of arrival: EMS Limitations: no limitations History of Present Illness ED Provider: MARIE YEE narrative: 34 yo male with PMH of ETOH use disorder and cocaine abuse who has been actively using today, pericarditis ?(recurrent idiopathic) hx of effusion and pericardiocentesis back in February of 2024 he was just admitted here until 5 days ago and has been told to talk prednisone 40mg daily and colchicine. He took it today but he didn't take it yesterday and has been not compliant. He comes crying states he messed up now he admits to a few days of black stools and black vomit. He has some chest and abdominal pain. He denies SI/HI. He is crying on arrival. He did call his and she knows he is here. MD complaint: drug use, cocaine use, chest pains, melena Onset (ago): hour(s) (several ) Location: chest Radiation: non-radiation Severity: moderate Quality: aching Pain Consistency: intermittent Relieving factors: none Exacerbating factors: other (drug and ETOH use) Associated symptoms: other (see above UGIB symptoms, chest pains, anxiety) Treatments prior to arrival: other (did take his prednisone and colchicine this AM) Related Data Home Medications ?Medication ?Instructions ?Recorded ?Confirmed ibuprofen 200 mg tablet 600 mg PO TID PRN Pain 05/15/24 12/28/24 pantoprazole 40 mg tablet,delayed 40 mg PO DAILY@0630 12/28/24 12/28/24 release prednisone 10 mg tablet 25 mg PO DAILY 12/28/24 12/28/24 Previous Rx's ?Medication ?Instructions ?Recorded colchicine 0.6 mg tablet 0.6 mg PO BID 4 weeks #56 tabs 05/16/24 amoxicillin 875 mg-potassium 1 tab PO BID #14 tabs 12/30/24 clavulanate 125 mg tablet chlordiazepoxide HCl 25 mg capsule 50 mg (2 x 25 mg) PO Q4H PRN 01/05/25 alcohol withdrawal 6 doses #12 caps Allergies Allergy/AdvReac Type Severity Reaction Status Date / Time No Known Allergies Allergy Verified 06/01/25 10:41 Review of Systems Review of Systems: Constitutional : No Weight loss, No Fever, No Chills ENT/Mouth : No sore throat, No Rhinorrhea Eyes: No Eye Pain, No Swelling Cardiovascular : pos Chest Pain, pos SOB, no Dyspnea on Exertion, No Orthopnea, No Edema, No Palpitations Respiratory : No Cough, No Sputum Gastrointestinal : pos Nausea, pos Vomiting, No Diarrhea, pos abdominal Pain, No Hematochezia, pos Melena Genitourinary : No Dysuria, No Urinary Frequency Musculoskeletal : No joint pain, No Myalgias, No Joint Swelling Skin : No Skin Lesions, No rash Neuro : No Weakness, No Numbness, No Dizziness, No Headache Psych : pos Anxiety/Panic, No Depression All other systems reviewed and are negative PMFSH Past Medical History Attestation statement: The following information was validated with the patient. Source: old records reviewed Medical History Pericardial effusion Alcohol use disorder, moderate, dependence MDD (major depressive disorder), recurrent episode, moderate Nausea with vomiting Alcohol use disorder Anxiety and depression History of seizure due to alcohol withdrawal ETOH abuse Family History Family History Other Diabetes Social History Social History Household Members: Family Housing: Apartment Do you presently have visiting nurse or other home services: No Alcohol intake: current Alcohol intake frequency: 3 or more drinks per day Alcohol type: hard liquor Patient Tobacco Use Status: Former Tobacco user Tobacco use type: Cigarette Smoked in Last 30 Days: No e-Cigarette/Vaping Use: Never Used Second Hand Smoke Exposure: No Use of substances other than those prescribed or required for medical reasons: Yes Substance Use Type: Crack/Cocaine Advance Directives: Yes Advance Directives on File: Yes Advance Directives Date on File: 11/07/22 service: No Current occupational status: employed Physical Exam ED Vital Signs: Vital Signs - 24 hr 01/05/25 10:31 01/05/25 12:33 Temperature 98.1 F Pulse Rate 120 H 98 Respiratory Rate 22 H 18 Blood Pressure 170/113 H 143/101 H Pulse Oximetry 94 97 Oxygen Delivery Method Room Air Room Air BMI result Body Mass Index 28.7 Appearance: Alert. Oriented X3. crying, mild acute distress. Eyes: Pupils equal, round and reactive to light. ENT: Pharynx normal. atraumatic Neck: Normal inspection. Neck supple. CVS: tachycardic heart rate and rhythm. Pulses normal. Respiratory: No respiratory distress. Breath sounds normal. Abdomen: Soft and nontender. Rectal: Lillian RN present light brown stool Skin: Skin warm and dry. Normal skin color. Normal skin turgor. Extremities: No lower extremity edema. No calf ttp Neuro: Oriented X 3. No motor deficit. No sensory deficit. CN2-12 intact Course Course Course Narrative: will treat and then reassess I do believe this is due to his ETOH and cocaine use Reevaluation(s) Reevaluation #1: VS improved Reevaluation #2: no signs of withdrawal on DC Medications Administered Discontinued Medications Generic Name Dose Route Start Last Admin Trade Name Ramírez PRN Reason Stop Dose Admin Diazepam 2.5 mg 01/05/25 10:51 01/05/25 11:19 Diazepam 10 Mg/2 Ml Cartridge IVPUSH 01/05/25 10:52 2.5 mg STAT STA Administration Diphenhydramine HCl 25 mg 01/05/25 11:45 01/05/25 11:54 Diphenhydramine Hcl 50 Mg/Ml Vial IVPUSH 01/05/25 11:46 25 mg ONCE ONE Administration Hydromorphone HCl 0.5 mg 01/05/25 11:45 01/05/25 11:55 Hydromorphone Hcl 0.5 Mg/0.5 Ml Syringe IVPUSH 01/05/25 11:46 0.5 mg ONCE ONE Administration Protocol Lactated Ringer's 1,000 mls @ 999 mls/hr 01/05/25 10:51 01/05/25 12:27 Lr IV 01/05/25 11:51 Infused .Q1H1M ONE Infusion Metoclopramide HCl 10 mg 01/05/25 11:45 01/05/25 11:55 Metoclopramide Hcl 10 Mg/2 Ml Vial IVPUSH 01/05/25 11:46 10 mg ONCE ONE Administration Potassium Chloride 40 meq 01/05/25 11:47 01/05/25 11:59 Potassium Chloride Er 20 Meq Tab.Er.Prt PO 01/05/25 11:48 40 meq ONCE ONE Administration Procedures Procedure Narrative Procedure Narrative: EMERGENCY ULTRASOUND INTERPRETATION-Limited Echocardiography? The study reveals:? Impression: NORMAL LV FUNCTION, NO RV DYSFUNCTION, small PERICARDIAL EFFUSION Emergent Cardiac for Indication:? Views Used: PLAX, PSSA, A4, SX, IVC Pericardial Effusion/Tamponade Findings: NONE RV Dilation (> LV diam in 4ch apical):? NONE Global LV Fxn: NORMAL IVC Dilation and Resp Variation: NORMAL Performed by: MARIE Date: 01/05/25 Time: 1048pm CPT:98460; Reference Codes? https://bit.ly/[email or web address]] Medical Decision Making Medical Decision Making MDM Narrative: 34 yo male with PMH of ETOH use disorder and cocaine abuse who has been actively using today, pericarditis ?(recurrent idiopathic) hx of effusion and pericardiocentesis back in February of 2024 now here with multiple complaints including ETOH and cocaine abuse, black vomit and black stools, depression, chest pains, not compliant with her pericarditis regimen. He will need labs, emergent bedside ECHO shows small effusion but no tamponade at this time will need basic labs, CXR, IVF and IV valium. Pain is in epigastric area not across chest and not pleuritic he has no signs of DVT at this time I do not suspect VTE was on proph lovenox while admitted well score for PE is low risk 1.5% Differential Diagnosis Differential Diagnoses: The differential diagnosis associated with the presentation includes pericarditis, UGIB, ETOH and cocaine use disorder, non compliance Admission/Observation Consideration of admission/observation: Escalation of care including admission/observation considered labs reassuring no signs of GIB feels better I did offer detox and SUDE but he declines. He will go home with librium and detox list at bedside and comfortable with this Lab Data [facility] Lab Attestation statement: I reviewed the patient's lab results. H/H stable, BUN normal doubt GIB and occult negative CRP is really improved from baseline I suspect his symptoms are based off of ETOH and cocaine use - trop negative, CPK reassuring, EKG unchanged 01/05/25 11:17 01/05/25 11:17 Labs: Lab Results 01/05/25 01/05/25 Range/Units 11:17 11:45 WBC 10.2 (4.8-10.8) X10*3/uL RBC 4.61 (4.60-5.80) X10*6/uL Hgb 14.1 (14.0-18.0) g/dl Hct 40.5 L (42.0-52.0) % MCV 87.9 (80.0-98.0) fL MCH 30.6 (27.0-33.0) pg MCHC 34.8 (31.0-36.0) g/dl RDW 13.5 (11.0-16.0) % Plt Count 558 H D (160-400) X10*3/uL MPV 8.3 L (9.4-12.4) fL Immature Gran % (Auto) 1.0 H (0.0-0.4) % Neut % (Auto) 92.2 H (45-73) % Lymph % (Auto) 5.8 L (20-40) % [place] % (Auto) 0.9 L (2-11) % Eos % (Auto) 0.0 (0-4) % Baso % (Auto) 0.1 (0-2) % Lymph # (Auto) 0.6 L (1.2-4.9) X10*3/uL [place] # (Auto) 0.1 (0.1-1.2) X10*3/uL Eos # (Auto) 0.0 (0.0-0.4) X10*3/uL Baso # (Auto) 0.0 (0.0-0.2) X10*3/uL Abs Immat Gran (auto) 0.10 H (0.00-0.03) X10*3/uL Absolute Neuts (auto) 9.4 H (2.0-8.3) x10*3/uL Absolute Nucleated RBC 0.000 (0.0-0.012) X10*3/uL Nucleated RBC % (auto) 0.0 (0.0-0.2) /100WBC Smear Tech's Comments VERIFIED Sodium 142 (135-145) mmol/L Potassium 3.1 L (3.3-5.1) mmol/L Chloride 100 (96-108) mmol/L Carbon Dioxide 26 (22-29) mmol/L Anion Gap 19 (12-20) BUN 3 L (9-16) mg/dL Creatinine 0.67 (0.5-1.4) mg/dL Estim Creat Clear Calc 172.2 Estimated GFR > 60 Random Glucose 125 H (60-115) mg/dL Calcium 9.5 (8.4-10.2) mg/dL Magnesium 2.0 (1.6-2.6) mg/dL Total Bilirubin 0.2 (0.0-1.0) mg/dL Direct Bilirubin < 0.2 (0.0-0.5) mg/dL AST 39 H (5-37) U/L ALT 34 (0-40) U/L Alkaline Phosphatase 66 (39-117) U/L Total Creatine Kinase 253 H (38-174) U/L Troponin I High Sens < 2.7 (<3.5-35.0) ng/L C-Reactive Protein 0.83 H (< or = 0.50) mg/dL B-Natriuretic Peptide < 10 (<100) pg/mL Total Protein 7.9 (6.5-8.0) g/dL Albumin 4.9 (3.5-5.0) g/dL Lipase 28 (8-78) U/L Urine Color Yellow Urine Appearance Cloudy Urine pH 8.0 (5.0-9.0) Ur Specific [place] <= 1.005 (1.005-1.025) Urine Protein Negative (Neg-Trace) mg/dL Urine Glucose (UA) Negative (Negative) mg/dL Urine Ketones Negative (Negative) mg/dL Urine Blood Negative (Negative) Urine Nitrite Negative (Negative) Ur Leukocyte Esterase Negative (Negative) Stool Occult Blood NEGATIVE (NEGATIVE) Urine Opiates Screen Not Detected (Not Detect) Ur Buprenorphine Scrn Not Detected (Not Detect) ng/mL Ur Oxycodone Screen Not Detected (Not Detect) ng/mL Urine Methadone Screen Not Detected (Not Detect) ng/mL Urine Fentanyl Screen Not Detected (Not Detect) Ur Barbiturates Screen Not Detected (Not Detect) Ur Phencyclidine Scrn Not Detected (Not Detect) Ur Amphetamines Screen Not Detected (Not Detect) U Benzodiazepines Scrn Not Detected (Not Detect) Urine Cocaine Screen POSITIVE H (Not Detect) U Marijuana (THC) Screen Not Detected (Not Detect) Ethyl Alcohol 344 H* mg/dL Influenza Type A (PCR) NEGATIVE (Negative) Influenza Type B (PCR) NEGATIVE (Negative) RSV RNA Qual (PCR) NEGATIVE (Negative) SARS-CoV-2 RNA (RT-PCR) NEGATIVE (Negative) Independent Interpretation I performed an independent interpretation of an: EKG and Plain X-Ray (normal) Interpretation: Rate: 111 Rhythm: sinus tach [place]: normal Normal P waves. Normal MARKUS. Normal QRS complex. ST T wave : no MOOK[place], normal qTC: 397 prior studies: no acute ischemia The study has been interpreted contemporaneously by me. . Radiology Impression Discussion of test interpretation with radiology: I have reviewed the radiologist's reading. Independent Historian Clinical information obtained from an independent historian. History obtained from or confirmed by: EMS External Record Review External record reviewed: Inpatient record and Outpatient record Prescription Management I considered prescription management with: Other Critical Care Time Critical Care Time Critical Care Time: Yes Total Critical Care Time: 45 Attestation: Time is exclusive of separately billable procedures. Time includes: direct patient care, patient reassessment, coordination of patient care, interpretation of data (laboratory data, pulse oximetry, chest xrays), review of patient's medical records, medical consultation and documentation of patient care. IV dilaudid and IV valium with improvement in symptoms and pain. Procedures excluded from critical care time: electrocardiography. I attest to this time spent taking care of the patient Discharge Plan Discharge Clinical Impression: Cocaine use, Alcohol use disorder, severe, dependence, Hypokalemia Patient Disposition: Home, Self-Care Instructions: Gastritis (ED), Hypokalemia (ED), Cocaine Use Disorder (ED), Alcohol Use Disorder (ED) Additional Instructions: bland diet for the next 48 hours would stick with clear liquids today rest and stay hydrated avoid alcohol and cocaine - please consider detox return for any worsening symptoms or concerns. Alcohol use disorder You were seen in the Emergency Department today for treatment of alcohol use disorder.? You may have been given medications to help with your withdrawal symptoms.? Please do not drink alcohol with them. This is very dangerous and can cause respiratory depression or other adverse reactions depending on the medication. If you would like to cut down or stop your alcohol use please consider calling our outpatient Addiction Treatment office:? [facility] (M-F 9a-5p) [address] [place] [address] ? You have also been given a list of treatment providers in the area that can assist as well.? If you experience seizures, vomiting blood, black stools, falls, severe headache, chest pain, fevers, trouble breathing, hallucinations or any other concerns you need to call 911 or seek immediate care. Please stay hydrated. Prescriptions: New chlordiazepoxide HCl 25 mg capsule 50 mg PO Q4H PRN (Reason: alcohol withdrawal) Qty: 12 0RF Rx Instructions: until symptoms controlled No Action ibuprofen 200 mg Tablet 600 mg PO TID PRN (Reason: Pain) colchicine 0.6 mg tablet 0.6 mg PO BID 28 Days Qty: 56 0RF prednisone 10 mg tablet 25 mg PO DAILY pantoprazole 40 mg Tablet,Delayed Release (Dr/Ec) 40 mg PO DAILY@0630 amoxicillin-pot clavulanate 875-125 mg tablet 1 tab PO BID Qty: 14 0RF Print Language: Croatian
[2025-01-05] MEDS: diazePAM 10 MG/2 ML CARTRIDGE 2.5 MG IVPUSH (11:19)
[2025-01-05] MEDS: Lactated Ringers 1,000 ML 999 ML IV (11:20)
[2025-01-05 11:31] LABS: Appearance Urine Cloudy; Color Urine Yellow; Glucose Urine UA Negative (Negative); Leukocyte Esterase Urine Negative (Negative); Nitrite Urine Negative (Negative); Specific Gravity - Urine <= 1.005 (1.005-1.025); Urine Blood Negative (Negative); Urine Ketones Negative (Negative); Urine Protein Negative (Neg-Trace)
[2025-01-05 11:32] LABS: Basophils Percent Auto 0.1 % (0-2); Hematocrit 40.5 % (42.0-52.0); Hemoglobin 14.1 g/dl (14.0-18.0); Lymphocytes Absolute Auto 0.6 X10*3/uL (1.2-4.9); Lymphocytes Percent Auto 5.8 % (20-40); MANUAL DIFF FLAG SCAN; Mean Corpuscular HGB Conc 34.8 g/dl (31.0-36.0); Mean Corpuscular Hemoglobin 30.6 pg (27.0-33.0); Mean Corpuscular Volume 87.9 fL (80.0-98.0); Mean Platelet Volume 8.3 fL (9.4-12.4); Monocytes Absolute Auto 0.1 X10*3/uL (0.1-1.2); Monocytes Percent Auto 0.9 % (2-11); Neutrophils Absolute Auto 9.4 x10*3/uL (2.0-8.3); Neutrophils Percent Auto 92.2 % (45-73); Platelet Count 558 X10*3/uL (160-400); Red Blood Count 4.61 X10*6/uL (4.60-5.80); Red Cell Distribution Width 13.5 % (11.0-16.0); SCAN SMEAR FLAG 1; White Blood Count 10.2 X10*3/uL (4.8-10.8)
[2025-01-05 11:40] LABS: Amphetamine Screen Urine Not Detected (Not Detect); Barbiturates, Urine Not Detected (Not Detect); Benzodiazepines Screen Urine Not Detected (Not Detect); Buprenorphine Scr Not Detected (Not Detect); Cannabinoid Screen Urine Not Detected (Not Detect); Cocaine Screen Urine POSITIVE (Not Detect); Fentanyl, urine Not Detected (Not Detect); Methadone Screen, Urine Not Detected (Not Detect); Opiate Screen Urine Not Detected (Not Detect); Oxycodone Screen Urine Not Detected (Not Detect); Phencyclidine Screen Urine Not Detected (Not Detect)
--- NOTE | 2025-01-05 11:40 | PC.NURSE ---
pt reports recent relapse with ETOH and cocaine. He denies SI and HI. security conducted safety check, pt in hospital gown. pt cleared to keep belongings and phone at bedside.
[2025-01-05 11:42] LABS: Alanine Aminotransferase 34 U/L (0-40); Albumin Level 4.9 g/dL (3.5-5.0); Alkaline Phosphatase 66 U/L (39-117); Anion Gap 19 (12-20); Aspartate Amino Transferase 39 U/L (5-37); Bilirubin Direct < 0.2 mg/dL (0.0-0.5); Bilirubin Total 0.2 mg/dL (0.0-1.0); Blood Urea Nitrogen 3 mg/dL (9-16); C Reactive Protein 0.83 mg/dL (< or = 0.50); Calcium 9.5 mg/dL (8.4-10.2); Carbon Dioxide 26 mmol/L (22-29); Chloride 100 mmol/L (96-108); Creatinine Clr Calc Pharmacy 172.2; Estimated Glomerular Filt Rate > 60; Ethanol 344 mg/dL; Glucose Random 125 mg/dL (60-115); Potassium 3.1 mmol/L (3.3-5.1); Sodium 142 mmol/L (135-145); Total Protein 7.9 g/dL (6.5-8.0)
[2025-01-05] MEDS: diphenhydrAMINE HCL 50 MG/ML VIAL 25 MG IVPUSH (11:54)
[2025-01-05 11:55] LABS: SLIDE REVIEW VERIFIED
[2025-01-05] MEDS: HYDROmorphone HCl 0.5 MG/0.5 ML SYRINGE IVPUSH (11:55)
[2025-01-05] MEDS: Metoclopramide HCl 10 MG/2 ML VIAL IVPUSH (11:55)
[2025-01-05 11:56] LABS: B Type Natriuretic Peptide < 10 pg/mL (<100); Troponin-I High Sensitivity < 2.7 ng/L (<3.5-35.0)
[2025-01-05 11:57] LABS: OBS Int Ctl Valid YES; OBS1 NEGATIVE (NEGATIVE)
[2025-01-05] MEDS: Potassium Chloride ER 20 MEQ TAB.ER.PRT 40 MEQ PO (11:59)
--- NOTE | 2025-01-05 12:03 | PC.NURSE ---
pt urinated 1200 of clear, very paleurine
[2025-01-05 12:14] LABS: Lipase 28 U/L (8-78)
[2025-01-05 12:33] VITALS: BP 143/101; PULSE 98; RESP 18; O2SAT 97
[2025-01-05 12:41] LABS: Influenza A PCR NEGATIVE (Negative); Influenza B PCR NEGATIVE (Negative); Resp Syncy Virus RNA Qual PCR NEGATIVE (Negative); SARS COV2 PCR INHOUSE NEGATIVE (Negative)
[2025-01-05 13:04] VITALS: BP 143/101; PULSE 98; RESP 18; TEMP 36.8; O2SAT 97
== END 2025-01-05 13:05 | disposition home or self-care (01) ==
PROVIDERS: Emergency Provider Emergency Medicine
DX: E87.6 Hypokalemia (principal); F14.90 Cocaine use, unspecified, uncomplicated; F10.20 Alcohol dependence, uncomplicated; Y90.8 Blood alcohol level of 240 mg/100 ml or more; R10.9 Unspecified abdominal pain; R07.9 Chest pain, unspecified; R11.10 Vomiting, unspecified; Z03.818 Encounter for observation for suspected exposure to other biological agents ruled out
CPT/HCPCS: 0241U; 36415; 71045; 80048; 80076; 80307; 81003; 82272; 82550; 83690; 83735; 83880; 84484; 85025; 86140; 93005; 96361; 96374; 96375; 99284; J1171; J1200; J2765; J3360; J7120

== ENCOUNTER → 2025-01-05 10:44 | Outpatient (BNV) | payer OTHER, SELFPAY | PROVIDERS: Emergency Provider Emergency Medicine; Visit Provider Internal Medicine | DX: R00.0 Tachycardia, unspecified (principal) | CPT/HCPCS: 93010 ==

== ENCOUNTER → 2025-01-05 10:45 | Outpatient (BNV) | payer OTHER, SELFPAY | PROVIDERS: Emergency Provider Emergency Medicine; Visit Provider Radiology Vascular & Interventional Radiology | DX: R07.9 Chest pain, unspecified (principal) | CPT/HCPCS: 71045 ==

== ENCOUNTER 2025-01-23 21:23 | Emergency (ER) | payer OTHER, SELFPAY ==
--- NOTE | 2025-01-23 | ECG_ITS ---
Test Reason : chest pressure Blood Pressure : */* mmHG Vent. Rate : 122 BPM Atrial Rate : 122 BPM P-R Int : 146 ms QRS Dur : 76 ms QT Int : 282 ms P-R-T Axes : 56 63 84 degrees QTcB Int : 401 ms Sinus tachycardia Nonspecific T wave abnormality Abnormal ECG When compared with ECG of 05-Jan-2025 11:25, No significant change was found Referred By: Generic ED Physician Electronically Signed By: Bernabe Mcgill
--- NOTE | ~2025-01-23 | XR_ITS ---
CLINICAL HISTORY: chest pain 1 view chest x-ray Comparison: 01/05/2025 Findings: Portions of the exam is obscured by overlying material. The lungs are clear. Heart size is normal. No acute fracture. IMPRESSION: 1. No acute findings. This document has been electronically signed by: Miguel Santoro MD on 01/23/2025 22:32:53
--- NOTE | ~2025-01-23 | CT_ITS ---
CLINICAL HISTORY: upper abdominal CT abdomen and pelvis with contrast Comparison: None provided Findings: The lung bases are clear. Hepatomegaly with steatosis. Right-sided hypodense/intermediate dense renal cysts. Punctate less than 2 mm calculus right lower pole kidney with mild hydroureteronephrosis. No bowel obstruction, pneumoperitoneum, or pneumatosis. Scattered colonic diverticulosis without diverticulitis or colitis. Normal appendix. Distended bladder. Osteopenia. No acute fracture. Disc bulges at L4-L5 and L5-S1. IMPRESSION: 1. Punctate less than 2 mm calculus right lower pole kidney with mild hydroureteronephrosis. 2. Distended bladder. This document has been electronically signed by: Charles Trujillo MD on 01/24/2025 00:38:08
[2025-01-23 21:33] VITALS: BP 151/90; PULSE 112; RESP 22; TEMP 37.8; O2SAT 97; BMI 30.4
[2025-01-23 22:09] LABS: MANUAL DIFF FLAG NO
--- NOTE | 2025-01-23 22:11 | MHC.EDTECH ---
Safety check done by security (August Ortez). Backpack was searched and 2 large cans of unopened alcohol beverage taken by security. Pérez offered to just hold onto them/lock them up and Pt could retrieve upon dc but Pt stated several times that security could dispose of them. Pt has prescription meds in backpack--Shanna SHORT made aware. No other contraband found on Pt by security. 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
[2025-01-23 22:13] LABS: Basophils Percent Auto 0.1 % (0-2); Hematocrit 40.5 % (42.0-52.0); Hemoglobin 13.8 g/dl (14.0-18.0); Imm Gran Abs Auto 0.03 X10*3/uL (0.00-0.03); Imm Gran Pct Auto 0.4 % (0.0-0.4); Lymphocytes Percent Auto 11.7 % (20-40); Mean Corpuscular HGB Conc 34.1 g/dl (31.0-36.0); Mean Corpuscular Hemoglobin 30.3 pg (27.0-33.0); Mean Platelet Volume 8.4 fL (9.4-12.4); Monocytes Absolute Auto 0.3 X10*3/uL (0.1-1.2); Monocytes Percent Auto 3.4 % (2-11); Neutrophils Absolute Auto 6.9 x10*3/uL (2.0-8.3); Neutrophils Percent Auto 84.4 % (45-73); Platelet Count 381 X10*3/uL (160-400); Red Blood Count 4.55 X10*6/uL (4.60-5.80); White Blood Count 8.2 X10*3/uL (4.8-10.8)
[2025-01-23 22:20] VITALS: BP 130/80; PULSE 160; O2SAT 94
[2025-01-23 22:26] LABS: Alanine Aminotransferase 34 U/L (0-40); Albumin Level 4.7 g/dL (3.5-5.0); Alkaline Phosphatase 53 U/L (39-117); Anion Gap 18 (12-20); Aspartate Amino Transferase 30 U/L (5-37); Bilirubin Total 0.2 mg/dL (0.0-1.0); Blood Urea Nitrogen 6 mg/dL (9-16); Calcium 8.8 mg/dL (8.4-10.2); Carbon Dioxide 24 mmol/L (22-29); Chloride 105 mmol/L (96-108); Creatinine Clr Calc Pharmacy 147.3; Estimated Glomerular Filt Rate > 60; Ethanol 336 mg/dL; Glucose Random 168 mg/dL (60-115); Potassium 3.5 mmol/L (3.3-5.1); Sodium 143 mmol/L (135-145); Total Protein 7.2 g/dL (6.5-8.0)
[2025-01-23 22:29] LABS: Lactic Acid 3.6 mmol/L (0.5-2.0)
[2025-01-23 22:33] LABS: Troponin-I High Sensitivity < 2.7 ng/L (<3.5-35.0)
[2025-01-23 22:47] VITALS: BP 147/85; PULSE 107; RESP 15; TEMP 37.4; O2SAT 96
[2025-01-23 22:48] LABS: Influenza A PCR NEGATIVE (Negative); Influenza B PCR NEGATIVE (Negative); Resp Syncy Virus RNA Qual PCR NEGATIVE (Negative); SARS COV2 PCR INHOUSE NEGATIVE (Negative)
[2025-01-23 22:53] LABS: C Reactive Protein < 0.04 mg/dL (< or = 0.50); Lipase 28 U/L (8-78)
[2025-01-23 23:15] VITALS: RESP 17
[2025-01-23] MEDS: Morphine Sulfate 4 MG/ML CARTRIDGE IVPUSH (23:15)
[2025-01-23] MEDS: ondansetron HCL 4 MG/2 ML VIAL IVPUSH (23:15)
[2025-01-23] MEDS: 0.9 % Sodium Chloride 1,000 ML 999 ML IV (23:16)
--- NOTE | 2025-01-23 23:19 | PC.NURSE ---
Patient medicated per MAR
[2025-01-23] MEDS: iohexoL 350 MG/ML 100 ML INFUS..BTL 85 ML IV (23:37)
[2025-01-23 23:45] LABS: Erythrocyte Sedimentation Rate 7 MM/HR (0-15)
[2025-01-23] MEDS: LORazepam 1 MG TABLET PO (23:54)
[2025-01-24 00:07] LABS: Reflex Lactate? Lactic Acid Added
--- NOTE | 2025-01-24 00:07 | ED.CHESTPAIN ---
HPI - Chest Pain General Chief Complaint: Chest Pain Stated Complaint: Chest pain, etoh Time Seen by Provider: 01/23/25 22:24 Source: patient, RN notes reviewed and old records reviewed Mode of arrival: EMS Limitations: no limitations History of Present Illness ED Provider: Kenya YEE narrative: 34-year-old male with a history of chronic pericarditis, alcohol use disorder, cocaine abuse presents for evaluation of chest pain. Patient reports chest pain for the last 3 days. His pain is left-sided, radiates to his left shoulder. He reports that he is having trouble filling his prescriptions of prednisone and he has been self medicating with alcohol His last drink was just prior to arrival. He was given aspirin, nitroglycerin and fentanyl EN route He is still complaining of 10/10 chest pain. He reports that he also takes colchicine. He is admitted here at the end of last month for pneumonia and a small pericardial effusion He reports he is interested in speaking to somebody about his alcohol abuse Related Data Home Medications ?Medication ?Instructions ?Recorded ?Confirmed ibuprofen 200 mg tablet 600 mg PO TID PRN Pain 05/15/24 12/28/24 pantoprazole 40 mg tablet,delayed 40 mg PO DAILY@0630 12/28/24 12/28/24 release prednisone 10 mg tablet 25 mg PO DAILY 12/28/24 12/28/24 Previous Rx's ?Medication ?Instructions ?Recorded colchicine 0.6 mg tablet 0.6 mg PO BID 4 weeks #56 tabs 05/16/24 amoxicillin 875 mg-potassium 1 tab PO BID #14 tabs 12/30/24 clavulanate 125 mg tablet chlordiazepoxide HCl 25 mg capsule 50 mg (2 x 25 mg) PO Q4H PRN 01/05/25 alcohol withdrawal 6 doses #12 caps Allergies Allergy/AdvReac Type Severity Reaction Status Date / Time No Known Allergies Allergy Verified 01/23/25 21:34 Review of Systems Constitutional: Constitutional: Denies body ache(s), Denies chills and Denies fever(s) Eyes: Eyes: Denies blurry vision ENT: Denies dizziness and Denies dry mouth Cardiovascular: Cardiovascular: Reports chest pain, Reports chest pain at rest and Reports chest pain with activity Gastrointestinal: Gastrointestinal: Reports abdominal pain, Reports nausea and Denies vomiting Musculoskeletal: Musculoskeletal: Reports back pain Integumentary/Breasts: Skin/Breast: Denies rash Neurologic: Denies dizziness Psychiatric: Psychiatric: Denies anxiety PMFSH Past Medical History Medical History Pericardial effusion Alcohol use disorder, moderate, dependence MDD (major depressive disorder), recurrent episode, moderate Nausea with vomiting Alcohol use disorder Anxiety and depression History of seizure due to alcohol withdrawal ETOH abuse Family History Family History Other Diabetes Social History Social History Household Members: Family Housing: Apartment Do you presently have visiting nurse or other home services: No Alcohol intake: current Alcohol intake frequency: 3 or more drinks per day Alcohol type: hard liquor Patient Tobacco Use Status: Former Tobacco user Tobacco use type: Cigarette e-Cigarette/Vaping Use: Never Used Second Hand Smoke Exposure: No Substance Use Type: Crack/Cocaine Advance Directives Date on File: 11/07/22 service: No Current occupational status: employed Physical Exam Vital Signs: Vital Signs: Last Vital Signs Temp 97.9 F 01/24/25 11:15 Pulse 91 01/24/25 11:15 Resp 18 01/24/25 11:15 BP 135/99 H 01/24/25 11:15 Pulse Ox 92 01/24/25 11:15 O2 Del Method Room Air 01/24/25 11:15 BMI result Body Mass Index 30.4 Const: General: alert and awake Nutritional Appearance: well nourished Orientation/consciousness: patient oriented x3 HEENT: Head: Yes normocephalic and Yes atraumatic Eyes: Eyelids: Yes eyelids normal Conjunctivae: conjunctivae normal Sclerae: sclerae normal Corneas: corneas normal Pupils: Equal, round and reactive pupils present EOM: EOMs intact bilaterally Neck: Neck: Yes full ROM Chest: Chest palpation & inspection: normal inspection of the chest, normal inspection of the chest and no crepitus Resp: Effort & Inspection: normal respiratory effort, able to speak in complete sentences and not labored GI: Inspection: No distended Palpation (GI): Soft to palpation, not firm, nontender (Diffuse abdominal tenderness), Guarding due to palpation present (GI) and not rigid Skin: General skin exam: elasticity normal Neuro: General: patient oriented x3 Cranial nerves: Yes Equal, round and reactive pupils present and Yes Bilaterally intact EOM present Cognition (Neuro): normal cognition Course Reevaluation(s) Reevaluation #1: Patient's workup largely unremarkable, chest x-ray was clear, abnormal CT scan shows a punctate renal stone. Renal function within normal limits. A urinalysis is pending. But otherwise no source of infection has been found. Blood cultures are pending, Lyme test is pending. The patient wishes to speak to the care team for consideration of detox. I ordered phenobarb protocol given the amount of alcohol that he drinks he is high risk for withdrawal. He is not having severe withdrawals right now and does not require admission for alcohol withdrawal. 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 as well, he will be discharged Time: 11:14 Time: 12:16 Additional Reevaluation(s): Patient was complaining of chest pain, re-evaluated, obtain new ECG, EKGs 83 normal sinus rhythm without underlying changes to suspect ACS Medications Administered Generic Name Dose Route Start Last Admin Trade Name Freq PRN Reason Stop Dose Admin Phenobarbital Sodium 204 mg 01/24/25 06:00 01/24/25 12:15 Phenobarbital Sodium 130 Mg/Ml Vial IM 204 mg Q3H EL Administration Discontinued Medications Generic Name Dose Route Start Last Admin Trade Name Freq PRN Reason Stop Dose Admin Sodium Chloride 1,000 mls @ 999 mls/hr 01/23/25 23:15 01/24/25 00:30 Ns IV 01/24/25 00:15 Infused .Q1H1M EL Infusion Iohexol 85 ml 01/23/25 23:37 01/23/25 23:37 Iohexol 350 Mg/Ml 100 Ml Infus..Btl IV 01/23/25 23:38 85 ml ONCE ONE Administration Ketorolac Tromethamine 30 mg 01/24/25 05:57 01/24/25 06:07 Ketorolac Tromethamine 30 Mg/Ml Vial IVPUSH 01/24/25 05:58 30 mg ONCE ONE Administration Lorazepam 1 mg 01/23/25 23:46 01/23/25 23:54 Lorazepam 1 Mg Tablet PO 01/23/25 23:47 1 mg ONCE ONE Administration Morphine Sulfate 4 mg 01/23/25 23:09 01/23/25 23:15 Morphine Sulfate 4 Mg/Ml Cartridge IVPUSH 01/23/25 23:10 4 mg ONCE ONE Administration Protocol Ondansetron HCl 4 mg 01/23/25 23:09 01/23/25 23:15 Ondansetron Hcl 4 Mg/2 Ml Vial IVPUSH 01/23/25 23:10 4 mg ONCE ONE Administration Phenobarbital Sodium 272 mg 01/24/25 03:00 01/24/25 03:17 Phenobarbital Sodium 130 Mg/Ml Vial IM 01/24/25 03:01 272 mg ONCE ONE Administration Prednisone 35 mg 01/24/25 10:05 01/24/25 10:45 Prednisone 5 Mg Tablet PO 01/24/25 10:06 35 mg ONCE ONE Administration Medical Decision Making Medical Decision Making [facility] Narrative: 34-year-old male past medical history as above presents for evaluation of chest pain, alcohol abuse, abdominal pain. He has epigastric abdominal pain radiating to the back, this could be indicative of pancreatitis given the amount of alcohol he has been drinking. His alcohol level is 336. His EKG is nonischemic. He does have a history of pericarditis which could contribute to his chest pain as well. Lungs are clear to auscultation, chest x-ray is clear the patient has no leukocytosis, he has a very mild normocytic anemia consistent with his baseline. He has a slight left shift which is likely due to his chronic pericarditis and inflammatory changes. ESR is only 7, within normal limits. Electrolytes are significant for random glucose of 168, has a lactic acid of 3.6. This is likely due to alcoholic ketosis, the rest of his chemistries are within normal limits, CRP is negative, troponin within normal limits. Given his level of abdominal pain CT scan of the abdomen pelvis will be obtained. The patient has a temperature of a 100.1?, but again no evidence of bacterial infection, no evidence of pneumonia, there was no clear source of infection. The fever could be reactive to his inflammatory condition. I did review his previous serology which had tick-borne disease testing but I do not see any negative test for Lyme disease. Given the endemic area I ordered a Lyme titer Differential Diagnosis Differential Diagnoses: The differential diagnosis associated with the presentation includes Pericarditis Lyme disease Pneumonia Pancreatitis Cholecystitis Appendicitis Abdominal pain Alcoholic ketosis Alcohol abuse Gastritis Peptic ulcer disease Admission/Observation Consideration of admission/observation: Escalation of care including admission/observation considered Lab Data MDM Lab Attestation statement: I reviewed the patient's lab results. As above 01/23/25 21:57 01/23/25 21:57 Labs: Lab Results 01/23/25 01/23/25 01/23/25 Range/Units 21:56 21:57 21:58 WBC 8.2 (4.8-10.8) X10*3/uL RBC 4.55 L (4.60-5.80) X10*6/uL Hgb 13.8 L (14.0-18.0) g/dl Hct 40.5 L (42.0-52.0) % MCV 89.0 (80.0-98.0) fL MCH 30.3 (27.0-33.0) pg MCHC 34.1 (31.0-36.0) g/dl RDW 14.0 (11.0-16.0) % Plt Count 381 D (160-400) X10*3/uL MPV 8.4 L (9.4-12.4) fL Immature Gran % (Auto) 0.4 (0.0-0.4) % Neut % (Auto) 84.4 H (45-73) % Lymph % (Auto) 11.7 L (20-40) % [place] % (Auto) 3.4 (2-11) % Eos % (Auto) 0.0 (0-4) % Baso % (Auto) 0.1 (0-2) % Lymph # (Auto) 1.0 L (1.2-4.9) X10*3/uL [place] # (Auto) 0.3 (0.1-1.2) X10*3/uL Eos # (Auto) 0.0 (0.0-0.4) X10*3/uL Baso # (Auto) 0.0 (0.0-0.2) X10*3/uL Abs Immat Gran (auto) 0.03 (0.00-0.03) X10*3/uL Absolute Neuts (auto) 6.9 (2.0-8.3) x10*3/uL Absolute Nucleated RBC 0.000 (0.0-0.012) X10*3/uL Nucleated RBC % (auto) 0.0 (0.0-0.2) /100WBC ESR 7 (0-15) MM/HR Sodium 143 (135-145) mmol/L Potassium 3.5 (3.3-5.1) mmol/L Chloride 105 (96-108) mmol/L Carbon Dioxide 24 (22-29) mmol/L Anion Gap 18 (12-20) BUN 6 L (9-16) mg/dL Creatinine 0.78 (0.5-1.4) mg/dL Estim Creat Clear Calc 147.3 Estimated GFR > 60 Random Glucose 168 H (60-115) mg/dL Lactic Acid 3.6 H* (0.5-2.0) mmol/L Lactic Acid F/U @ 2Hr (0.5-2.0) mmol/L Calcium 8.8 D (8.4-10.2) mg/dL Total Bilirubin 0.2 (0.0-1.0) mg/dL AST 30 (5-37) U/L ALT 34 (0-40) U/L Alkaline Phosphatase 53 (39-117) U/L Troponin I High Sens < 2.7 (<3.5-35.0) ng/L C-Reactive Protein < 0.04 (< or = 0.50) mg/dL Total Protein 7.2 (6.5-8.0) g/dL Albumin 4.7 (3.5-5.0) g/dL Lipase 28 (8-78) U/L Urine Color Urine Appearance Urine pH (5.0-9.0) Ur Specific [place] (1.005-1.025) Urine Protein (Neg-Trace) mg/dL Urine Glucose (UA) (Negative) mg/dL Urine Ketones (Negative) mg/dL Urine Blood (Negative) Urine Nitrite (Negative) Ur Leukocyte Esterase (Negative) Urine RBC (0-2) /HPF Urine WBC (0-5) /HPF Ur Squamous Epith Cells (0-2) /HPF Urine Bacteria (None Seen) Hyaline Casts (0-2) /LPF Urine Opiates Screen (Not Detect) Ur Buprenorphine Scrn (Not Detect) ng/mL Ur Oxycodone Screen (Not Detect) ng/mL Urine Methadone Screen (Not Detect) ng/mL Urine Fentanyl Screen (Not Detect) Ur Barbiturates Screen (Not Detect) Ur Phencyclidine Scrn (Not Detect) Ur Amphetamines Screen (Not Detect) U Benzodiazepines Scrn (Not Detect) Urine Cocaine Screen (Not Detect) U Marijuana (THC) Screen (Not Detect) Ethyl Alcohol 336 H* mg/dL Influenza Type A (PCR) NEGATIVE (Negative) Influenza Type B (PCR) NEGATIVE (Negative) RSV RNA Qual (PCR) NEGATIVE (Negative) SARS-CoV-2 RNA (RT-PCR) NEGATIVE (Negative) 01/24/25 01/24/25 01/24/25 Range/Units 00:00 00:34 09:58 WBC (4.8-10.8) X10*3/uL RBC (4.60-5.80) X10*6/uL Hgb (14.0-18.0) g/dl Hct (42.0-52.0) % MCV (80.0-98.0) fL MCH (27.0-33.0) pg MCHC (31.0-36.0) g/dl RDW (11.0-16.0) % Plt Count (160-400) X10*3/uL MPV (9.4-12.4) fL Immature Gran % (Auto) (0.0-0.4) % Neut % (Auto) (45-73) % Lymph % (Auto) (20-40) % [place] % (Auto) (2-11) % Eos % (Auto) (0-4) % Baso % (Auto) (0-2) % Lymph # (Auto) (1.2-4.9) X10*3/uL [place] # (Auto) (0.1-1.2) X10*3/uL Eos # (Auto) (0.0-0.4) X10*3/uL Baso # (Auto) (0.0-0.2) X10*3/uL Abs Immat Gran (auto) (0.00-0.03) X10*3/uL Absolute Neuts (auto) (2.0-8.3) x10*3/uL Absolute Nucleated RBC (0.0-0.012) X10*3/uL Nucleated RBC % (auto) (0.0-0.2) /100WBC ESR (0-15) MM/HR Sodium (135-145) mmol/L Potassium (3.3-5.1) mmol/L Chloride (96-108) mmol/L Carbon Dioxide (22-29) mmol/L Anion Gap (12-20) BUN (9-16) mg/dL Creatinine (0.5-1.4) mg/dL Estim Creat Clear Calc Estimated GFR Random Glucose (60-115) mg/dL Lactic Acid (0.5-2.0) mmol/L Lactic Acid F/U @ 2Hr 2.1 H* (0.5-2.0) mmol/L Calcium (8.4-10.2) mg/dL Total Bilirubin (0.0-1.0) mg/dL AST (5-37) U/L ALT (0-40) U/L Alkaline Phosphatase (39-117) U/L Troponin I High Sens (<3.5-35.0) ng/L C-Reactive Protein (< or = 0.50) mg/dL Total Protein (6.5-8.0) g/dL Albumin (3.5-5.0) g/dL Lipase (8-78) U/L Urine Color Yellow Urine Appearance Cloudy Urine pH >= 9.0 (5.0-9.0) Ur Specific [place] >= 1.030 H (1.005-1.025) Urine Protein Negative (Neg-Trace) mg/dL Urine Glucose (UA) Negative (Negative) mg/dL Urine Ketones Negative (Negative) mg/dL Urine Blood Negative (Negative) Urine Nitrite Negative (Negative) Ur Leukocyte Esterase Negative (Negative) Urine RBC 0-2 (0-2) /HPF Urine WBC 0-5 (0-5) /HPF Ur Squamous Epith Cells 0-2 (0-2) /HPF Urine Bacteria None Seen (None Seen) Hyaline Casts 0-2 (0-2) /LPF Urine Opiates Screen POSITIVE H (Not Detect) Ur Buprenorphine Scrn Not Detected (Not Detect) ng/mL Ur Oxycodone Screen Not Detected (Not Detect) ng/mL Urine Methadone Screen Not Detected (Not Detect) ng/mL Urine Fentanyl Screen Not Detected (Not Detect) Ur Barbiturates Screen Not Detected (Not Detect) Ur Phencyclidine Scrn Not Detected (Not Detect) Ur Amphetamines Screen Not Detected (Not Detect) U Benzodiazepines Scrn Not Detected (Not Detect) Urine Cocaine Screen Not Detected (Not Detect) U Marijuana (THC) Screen Not Detected (Not Detect) Ethyl Alcohol mg/dL Influenza Type A (PCR) (Negative) Influenza Type B (PCR) (Negative) RSV RNA Qual (PCR) (Negative) SARS-CoV-2 RNA (RT-PCR) (Negative) Independent Interpretation I performed an independent interpretation of an: EKG (Sinus tachycardia rate of [address] segment elevation ID. nondiagnostic EKG ) and Plain X-Ray Interpretation: No focal infiltrates Radiology Impression Discussion of test interpretation with radiology: I have reviewed the radiologist's reading. Radiologist Impression: Findings: Portions of the exam is obscured by overlying material. The lungs are clear. Heart size is normal. No acute fracture. IMPRESSION: 1. No acute findings. This document has been electronically signed by: Miguel Santoro MD on 01/23/2025 22:32:53 Discharge Plan Discharge Clinical Impression: Acute alcohol intoxication Qualifiers: Complication of substance-induced condition: with unspecified complication Qualified Code(s): F10.929 - Alcohol use, unspecified with intoxication, unspecified Chest pain Qualifiers: Chest pain type: unspecified Qualified Code(s): R07.9 - Chest pain, unspecified Patient Disposition: Home, Self-Care Instructions: Abuse of Alcohol (ED) Additional Instructions: Alcohol use disorder You were seen in the Emergency Department today for treatment of alcohol use disorder.? You may have been given medications to help with your withdrawal symptoms.? Please do not drink alcohol with them. This is very dangerous and can cause respiratory depression or other adverse reactions depending on the medication. If you would like to cut down or stop your alcohol use please consider calling our outpatient Addiction Treatment office:? [facility] ([id number] [id number]) [address] [place] [id number] ? You have also been given a list of treatment providers in the area that can assist as well.? If you experience seizures, vomiting blood, black stools, falls, severe headache, chest pain, fevers, trouble breathing, hallucinations or any other concerns you need to call 911 or seek immediate care. Please stay hydrated. Prescriptions: No Action chlordiazepoxide HCl 25 mg capsule 50 mg PO Q4H PRN (Reason: alcohol withdrawal) Qty: 12 0RF Rx Instructions: until symptoms controlled ibuprofen 200 mg Tablet 600 mg PO TID PRN (Reason: Pain) colchicine 0.6 mg tablet 0.6 mg PO BID 28 Days Qty: 56 0RF prednisone 10 mg tablet 25 mg PO DAILY pantoprazole 40 mg Tablet,Delayed Release (Dr/Ec) 40 mg PO DAILY@0630 amoxicillin-pot clavulanate 875-125 mg tablet 1 tab PO BID Qty: 14 0RF Print Language: Irish
[2025-01-24 00:18] LABS: Amphetamine Screen Urine Not Detected (Not Detect); Barbiturates, Urine Not Detected (Not Detect); Benzodiazepines Screen Urine Not Detected (Not Detect); Buprenorphine Scr Not Detected (Not Detect); Cannabinoid Screen Urine Not Detected (Not Detect); Cocaine Screen Urine Not Detected (Not Detect); Fentanyl, urine Not Detected (Not Detect); Methadone Screen, Urine Not Detected (Not Detect); Opiate Screen Urine POSITIVE (Not Detect); Oxycodone Screen Urine Not Detected (Not Detect); Phencyclidine Screen Urine Not Detected (Not Detect)
[2025-01-24 00:54] VITALS: BP 124/83; PULSE 91; RESP 18; TEMP 36.8; O2SAT 95
[2025-01-24 01:06] LABS: ~Lactic Acid-LAB USE ONLY 2.1 mmol/L (0.5-2.0)
[2025-01-24 01:07] LABS: Cancel Lactic Acid Canceled
[2025-01-24] MEDS: PHENobarbitaL sodium 130 MG/ML VIAL 272 MG IM (03:17)
[2025-01-24] MEDS: PHENobarbitaL sodium 130 MG/ML VIAL 204 MG IM ×3 (05:51→12:15)
[2025-01-24] MEDS: Ketorolac Tromethamine 30 MG/ML VIAL IVPUSH (06:07)
[2025-01-24 06:08] VITALS: BP 131/97; PULSE 95; RESP 20; TEMP 36.9; O2SAT 99
[2025-01-24 09:02] VITALS: BP 146/95; PULSE 102; RESP 15; O2SAT 99
[2025-01-24 10:08] LABS: Appearance Urine Cloudy; Color Urine Yellow; Glucose Urine UA Negative (Negative); Leukocyte Esterase Urine Negative (Negative); Nitrite Urine Negative (Negative); PH >= 9.0 (5.0-9.0); Specific Gravity - Urine >= 1.030 (1.005-1.025); Urine Blood Negative (Negative); Urine Ketones Negative (Negative); Urine Protein Negative (Neg-Trace)
[2025-01-24 10:11] LABS: Bacteria Urine None Seen (None Seen); Hyaline Casts Urine 0-2 /LPF (0-2); RBC Urine 0-2 /HPF (0-2); Squamous Epithelial Cell Urine 0-2 /HPF (0-2); WBC Urine 0-5 /HPF (0-5)
[2025-01-24] MEDS: predniSONE 5 MG TABLET 35 MG PO (10:45)
[2025-01-24 11:15] VITALS: BP 135/99; PULSE 91; RESP 18; TEMP 36.6; O2SAT 92
--- NOTE | 2025-01-24 12:07 | ECG_ITS ---
Test Reason : chest pain Blood Pressure : */* mmHG Vent. Rate : 83 BPM Atrial Rate : 83 BPM P-R Int : 144 ms QRS Dur : 88 ms QT Int : 364 ms P-R-T Axes : 55 29 58 degrees QTcB Int : 427 ms Normal sinus rhythm with sinus arrhythmia Normal ECG When compared with ECG of 23-Jan-2025 21:29, No significant change was found Referred By: Matt Mills Electronically Signed By: DANIELLE MARION
[2025-01-24 14:07] VITALS: BP 169/100; PULSE 89; RESP 20; TEMP 36.7
--- NOTE | 2025-01-24 14:08 | PC.NURSE ---
dr ivory aware of pt BP 169/100, pt aa&ox4, denies cp/dizziness/headache, ambulatory independently
[2025-01-28 02:43] LABS: Lyme Disease DNA PCR NOT DETECTED (NOT DETECTED)
[2025-01-29 11:13] LABS: Lyme Abs Screen <0.90 index
== END 2025-01-24 14:12 | disposition home or self-care (01) ==
PROVIDERS: Physician Assistant; Emergency Provider Internal Medicine
DX: F10.120 Alcohol abuse with intoxication, uncomplicated (principal); Y90.8 Blood alcohol level of 240 mg/100 ml or more; R07.9 Chest pain, unspecified; N13.2 Hydronephrosis with renal and ureteral calculous obstruction; R10.13 Epigastric pain; R50.9 Fever, unspecified; F14.10 Cocaine abuse, uncomplicated; F33.1 Major depressive disorder, recurrent, moderate; F41.9 Anxiety disorder, unspecified; Z87.891 Personal history of nicotine dependence; Z03.818 Encounter for observation for suspected exposure to other biological agents ruled out; Z79.899 Other long term (current) drug therapy
CPT/HCPCS: 0241U; 36415; 71045; 74177; 80053; 80307; 81001; 83605; 83690; 84484; 85025; 85652; 86140; 86617; 86618; 87040; 93005; 96361; 96372; 96374; 96375; 99285; J1885; J2270; J2405; J2560; Q9967; S9485

== ENCOUNTER → 2025-01-23 21:29 | Outpatient (BNV) | payer OTHER, SELFPAY | PROVIDERS: Emergency Provider Internal Medicine; Visit Provider Internal Medicine Cardiovascular Disease | DX: R00.0 Tachycardia, unspecified (principal) | CPT/HCPCS: 93010 ==

== ENCOUNTER → 2025-01-23 21:48 | Outpatient (BNV) | payer OTHER, SELFPAY | PROVIDERS: Visit Provider Specialist | DX: N20.0 Calculus of kidney (principal); N32.89 Other specified disorders of bladder; R07.9 Chest pain, unspecified | CPT/HCPCS: 71045; 74177 ==

== ENCOUNTER → 2025-01-24 12:07 | Outpatient (BNV) | payer OTHER, SELFPAY | PROVIDERS: Emergency Provider Internal Medicine; Visit Provider Internal Medicine | DX: R07.89 Other chest pain (principal) | CPT/HCPCS: 93010 ==

== ENCOUNTER 2025-02-10 19:19 | Inpatient (IN) | payer OTHER, SELFPAY ==
--- NOTE | 2025-02-10 | ECG_ITS ---
Test Reason : CHEST PAIN Blood Pressure : */* mmHG Vent. Rate : 134 BPM Atrial Rate : 134 BPM P-R Int : 132 ms QRS Dur : 70 ms QT Int : 274 ms P-R-T Axes : 47 61 68 degrees QTcB Int : 409 ms Sinus tachycardia Nonspecific T wave abnormality Abnormal ECG When compared with ECG of 24-Jan-2025 12:07, Vent. rate has increased by 51 bpm Referred By: Generic ED Physician Electronically Signed By: Bernabe Mcgill
--- NOTE | ~2025-02-10 | CT_ITS ---
CLINICAL HISTORY: epigastric pain, etoh CT abdomen and pelvis with contrast Comparison: CT/SR - CT CHEST WO IV CON - 02/10/25 21:[address] - CT ABDOMEN PELVIS W IV CON - 02/10/25 21:48 EDT Findings: Chest findings are discussed on the same day comparison. Small right renal cyst again noted. Gallbladder and solid organs otherwise unremarkable. No urolithiasis. No bowel obstruction, pneumoperitoneum, or pneumatosis. Mesenteric vessels patent. Normal appendix. Moderate urinary bladder distention. No inflammatory changes. The bones are intact. IMPRESSION: No acute findings. This document has been electronically signed by: Chelsea Everett MD on 02/10/2025 23:07:59
--- NOTE | ~2025-02-10 | CT_ITS ---
CLINICAL HISTORY: CP epigastric pain hx reoccurrent pericarditis CT chest without contrast Comparison: CT/SR - CT ABDOMEN PELVIS W IV CON - 02/10/25 21:[address]/SR - CT ANGIO CHEST PE PROTOCOL - 12/28/24 01:41 EDT Findings: Mild anterior pericardial thickening. Likely a small amount of pericardial fluid. The visualized thyroid and mediastinum are unremarkable. No consolidation or effusion. Abdominal findings are discussed on the comparison exam. Small multilevel Schmorl's nodes. No acute fractures. IMPRESSION: Mild anterior pericardial thickening favoring a small amount of fluid. Otherwise no acute findings. This document has been electronically signed by: Chelsea Everett MD on 02/10/2025 22:58:24
[2025-02-10 19:27] VITALS: BP 144/95; BP 147/123; PULSE 120; PULSE 150; RESP 26; TEMP 36.8; BMI 30.4
--- NOTE | 2025-02-10 19:56 | ED.CHESTPAIN ---
HPI - Chest Pain General Chief Complaint: Chest Pain Stated Complaint: CHEST-PAIN, NUMBNESS, WEAKNESS Time Seen by Provider: 02/10/25 19:55 Source: patient Mode of arrival: ambulatory Limitations: no limitations History of Present Illness ED Provider: Dr. Hafsa Saini HPI narrative: patient comes to the emergency room complaining of chest pain for the last 4 days. According to the patient, he has a history of pericarditis and it feels about the same. Also complaining of nausea vomiting, no diarrhea. Patient states that he did doing so proximally 60 beers of alcohol a day, states he stopped drinking earlier today. When EMS picked up the patient, patient was given 324 mg of p.o. aspirin. Patient denies using drugs. Patient states that he is supposed to be taking prednisone daily but he ran out of his meds, he is also supposed to be taking colchicine but he does not have any meds available. Related Data Home Medications ?Medication ?Instructions ?Recorded ?Confirmed ibuprofen 200 mg tablet 600 mg PO TID PRN Pain 05/15/24 12/28/24 pantoprazole 40 mg tablet,delayed 40 mg PO DAILY@0630 12/28/24 12/28/24 release prednisone 10 mg tablet 25 mg PO DAILY 12/28/24 12/28/24 Previous Rx's ?Medication ?Instructions ?Recorded colchicine 0.6 mg tablet 0.6 mg PO BID 4 weeks #56 tabs 05/16/24 amoxicillin 875 mg-potassium 1 tab PO BID #14 tabs 12/30/24 clavulanate 125 mg tablet chlordiazepoxide HCl 25 mg capsule 50 mg (2 x 25 mg) PO Q4H PRN 01/05/25 alcohol withdrawal 6 doses #12 caps Allergies Allergy/AdvReac Type Severity Reaction Status Date / Time No Known Allergies Allergy Verified 02/10/25 19:32 Review of Systems Review of Systems: Constitutional : No Weight loss, No Fever, No Chills, No Night Sweats, No Fatigue, No Malaise ENT/Mouth : No Hearing loss, No Ear Pain, No Nasal Congestion, No Sinus Pain, No Hoarseness, No sore throat, No Rhinorrhea, No Swallowing Difficulty Eyes: No Eye Pain, No Swelling, No Redness, No Foreign Body, No Discharge, No Vision Changes Cardiovascular : No Chest Pain, No SOB, No Dyspnea on Exertion, No Orthopnea, No Edema, No Palpitations Respiratory : No Cough, No Sputum, No Wheezing, No Smoke Exposure, No Dyspnea Gastrointestinal : No Nausea, No Vomiting, No Diarrhea, No Constipation, No abdominal Pain, No Hematochezia, No Melena Genitourinary : no irregular bleeding, No Dysuria, No Urinary Frequency, No Hematuria, No Urinary Incontinence, No Urgency, No Flank Pain, No Urinary Flow Changes, No Hesitancy Musculoskeletal : No joint pain, No Myalgias, No Joint Swelling Skin : No Skin Lesions, No rash Neuro : No Weakness, No Numbness, No Paresthesias, No Loss of Consciousness, No Dizziness, No Headache Psych : No Anxiety/Panic, No Depression, No SI/HI/AH/VH, No Social Issues, Heme/Lymph: No Bruising, No Bleeding,No Lymphadenopathy Endocrine : No Polyuria, No Polydipsia, No Temperature Intolerance [facility] Past Medical History Medical History Pericardial effusion Alcohol use disorder, moderate, dependence MDD (major depressive disorder), recurrent episode, moderate Nausea with vomiting Alcohol use disorder Anxiety and depression History of seizure due to alcohol withdrawal ETOH abuse Family History Family History Other Diabetes Social History Social History Household Members: Family Housing: Apartment Do you presently have visiting nurse or other home services: No Alcohol intake: current Alcohol intake frequency: 3 or more drinks per day Alcohol type: beer Patient Tobacco Use Status: Former Tobacco user Tobacco use type: Cigarette Smoked in Last 30 Days: Yes e-Cigarette/Vaping Use: Never Used Second Hand Smoke Exposure: No Substance Use Type: Crack/Cocaine Advance Directives: Yes Advance Directives on File: Yes Advance Directives Date on File: 11/07/22 Do you have a plan to hurt others: No Plan service: No Current occupational status: employed Physical Exam Vital Signs: Vital Signs: Last Vital Signs Temp 98.1 F 02/10/25 20:38 Pulse 106 H 02/10/25 23:49 Resp 20 02/10/25 23:49 BP 123/92 H 02/10/25 23:49 Pulse Ox 94 02/10/25 23:49 O2 Del Method Room Air 02/10/25 23:49 BMI result Body Mass Index 30.4 Const: Other: Appearance: Alert. Oriented X3. seems a bit anxious, trembling Eyes: Pupils equal, round and reactive to light. ENT: Pharynx normal. Neck: Normal inspection. Neck supple. No lymph nodes noted. No crepitus CVS: Normal heart rate and rhythm. Pulses normal. Normal S1 and S2 . Bedside ultrasound shows a small amount of fluid in the pericardium, proximally 2-3 mm Respiratory: No respiratory distress. Breath sounds normal. No Wheezing. No rales Abdomen: Soft and nontender. No rigidity. No distention. Skin: Skin warm and dry. Normal skin color. Normal skin turgor. Extremities: No lower extremity edema. No Lacerations. No Rash Neuro: Oriented X 3. No motor deficit. No sensory deficit. Moving all extremities. No slurred speech. CN 2 through 12 grossly intact Psych: calm, cooperative, normal affect Medications Administered Generic Name Dose Route Start Last Admin Trade Name Freq PRN Reason Stop Dose Admin Phenobarbital Sodium 246 mg 02/11/25 01:00 02/11/25 01:10 Phenobarbital Sodium 130 Mg/Ml Vial Im Q3hx2 IM 02/11/25 04:01 246 mg Q3H EL Administration Discontinued Medications Generic Name Dose Route Start Last Admin Trade Name Freq PRN Reason Stop Dose Admin Aspirin 325 mg 02/10/25 19:53 02/10/25 20:06 Aspirin 325 Mg Tablet PO 02/10/25 19:54 Not Given ONCE ONE Colchicine 0.6 mg 02/10/25 21:23 02/10/25 22:05 Colchicine 0.6 Mg Tablet PO 02/10/25 21:24 0.6 mg ONCE ONE Administration Diazepam 5 mg 02/10/25 19:53 02/10/25 20:01 Diazepam 10 Mg/2 Ml Cartridge IVPUSH 02/10/25 19:54 5 mg STAT STA Administration Diazepam 5 mg 02/10/25 21:35 02/10/25 21:39 Diazepam 10 Mg/2 Ml Cartridge IVPUSH 02/10/25 21:36 5 mg STAT STA Administration Iohexol 85 ml 02/10/25 22:01 02/10/25 22:01 Iohexol 350 Mg/Ml 100 Ml Infus..Btl IV 02/10/25 22:02 85 ml ONCE ONE Administration Morphine Sulfate 4 mg 02/10/25 19:53 02/10/25 20:02 Morphine Sulfate 4 Mg/Ml Cartridge IVPUSH 02/10/25 19:54 4 mg ONCE ONE Administration Protocol Morphine Sulfate 4 mg 02/10/25 21:22 02/10/25 21:34 Morphine Sulfate 4 Mg/Ml Cartridge IVPUSH 02/10/25 21:23 4 mg ONCE ONE Administration Protocol Ondansetron HCl 4 mg 02/10/25 19:53 02/10/25 20:00 Ondansetron Hcl 4 Mg/2 Ml Vial IVPUSH 02/10/25 19:54 4 mg ONCE ONE Administration Phenobarbital Sodium 328 mg 02/10/25 22:00 02/10/25 21:53 Phenobarbital Sodium 130 Mg/Ml Im Once IM 02/10/25 22:01 328 mg ONCE ONE Administration Prochlorperazine Edisylate 10 mg 02/10/25 21:17 02/10/25 21:35 Prochlorperazine Edisylate 10 Mg/2 Ml Vial IVPUSH 02/10/25 21:18 10 mg ONCE ONE Administration Medical Decision Making Medical Decision Making [facility] Narrative: as we were waiting for patient's CT scans and labs to come back, patient's seems that started to go into alcohol withdrawal. Patient became diaphoretic, tachycardic, high blood pressure. Patient cooperative, patient looks very uncomfortable. States that he is starting to have mild hallucinations consisting of Flashing lights and shadows in the room my interpretation of EKG: Normal sinus rhythm, heart rate 134, very mild ST-elevation in the lateral leads. patient was given IV morphine, colchicine, Zofran also, patient was initially given 5 mg of diazepam, in a few hours later he needed a 2nd dose. Patient was started on phenobarb protocol. Patient states that he is feeling better, still having a bit of chest discomfort but overall feels better. my interpretation of labs: Patient's hematology shows a white blood cell count of 18.9, ESR 2, CRP 0.3, normal electrolytes, normal troponin, lipase 46 I discussed the patient with Dr. Drake from the Medicine team, patient being admitted. 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 Patient's has a new job and can not miss work. If they do not find the route sales representative for their kids, patient will kindly asked to be discharged During the morning. Differential Diagnosis Differential Diagnoses: The differential diagnosis associated with the presentation includes ( Pericarditis, alcohol withdrawal, polysubstance abuse) Admission/Observation Consideration of admission/observation: Escalation of care including admission/observation considered Consult Healthcare Provider Management of the patient was discussed with: Hospitalist Lab Data MDM Lab Attestation statement: I reviewed the patient's lab results. 02/10/25 19:55 02/10/25 20:17 Labs: Lab Results 02/10/25 02/10/25 02/10/25 Range/Units 19:55 19:56 20:17 WBC 18.9 H (4.8-10.8) X10*3/uL RBC 4.88 (4.60-5.80) X10*6/uL Hgb 14.8 (14.0-18.0) g/dl Hct 43.0 (42.0-52.0) % MCV 88.1 (80.0-98.0) fL MCH 30.3 (27.0-33.0) pg MCHC 34.4 (31.0-36.0) g/dl RDW 14.2 (11.0-16.0) % Plt Count 595 H D (160-400) X10*3/uL MPV 8.7 L (9.4-12.4) fL Immature Gran % (Auto) 1.4 H (0.0-0.4) % Neut % (Auto) 81.9 H (45-73) % Lymph % (Auto) 10.3 L (20-40) % [place] % (Auto) 6.1 (2-11) % Eos % (Auto) 0.0 (0-4) % Baso % (Auto) 0.3 (0-2) % Lymph # (Auto) 1.9 (1.2-4.9) X10*3/uL [place] # (Auto) 1.2 (0.1-1.2) X10*3/uL Eos # (Auto) 0.0 (0.0-0.4) X10*3/uL Baso # (Auto) 0.1 (0.0-0.2) X10*3/uL Abs Immat Gran (auto) 0.27 H (0.00-0.03) X10*3/uL Absolute Neuts (auto) 15.5 H (2.0-8.3) x10*3/uL Absolute Nucleated RBC 0.030 H (0.0-0.012) X10*3/uL Nucleated RBC % (auto) 0.2 (0.0-0.2) /100WBC ESR 2 (0-15) MM/HR PT 10.3 L (10.9-12.4) SEC INR 0.9 (0.9-1.1) Sodium 136 (135-145) mmol/L Potassium 3.5 (3.3-5.1) mmol/L Chloride 100 (96-108) mmol/L Carbon Dioxide 24 (22-29) mmol/L Anion Gap 16 (12-20) BUN 4 L (9-16) mg/dL Creatinine 0.75 (0.5-1.4) mg/dL Estim Creat Clear Calc 153.2 Estimated GFR > 60 Random Glucose 121 H (60-115) mg/dL Calcium 8.7 (8.4-10.2) mg/dL Total Bilirubin 0.3 (0.0-1.0) mg/dL AST 27 (5-37) U/L ALT 29 (0-40) U/L Alkaline Phosphatase 63 (39-117) U/L Total Creatine Kinase 62 (38-174) U/L Troponin I High Sens < 2.7 (<3.5-35.0) ng/L C-Reactive Protein 0.30 (< or = 0.50) mg/dL Total Protein 7.0 (6.5-8.0) g/dL Albumin 4.3 (3.5-5.0) g/dL Lipase 46 (8-78) U/L Ethyl Alcohol 124 mg/dL Independent Interpretation I performed an independent interpretation of an: EKG and CT Scan Radiology Impression Discussion of test interpretation with radiology: I have reviewed the radiologist's reading. Radiologist Impression: Chest findings are discussed on the same day comparison. Small right renal cyst again noted. Gallbladder and solid organs otherwise unremarkable. No urolithiasis. No bowel obstruction, pneumoperitoneum, or pneumatosis. Mesenteric vessels patent. Normal appendix. Moderate urinary bladder distention. No inflammatory changes. The bones are intact Mild anterior pericardial thickening. Likely a small amount of pericardial fluid. The visualized thyroid and mediastinum are unremarkable. No consolidation or effusion. Abdominal findings are discussed on the comparison exam. Small multilevel Schmorl's nodes. No acute fractures. Critical Care Time Critical Care Time Critical Care Time: Yes Total Critical Care Time: 60 Attestation: I have personally provided critical care time. Time includes review of lab data, radiology results, discussion with consultants, and monitoring for potential decompensation. Intervention performed as documented. Discharge Plan Discharge Clinical Impression: Pericarditis, Alcohol withdrawal syndrome Patient Disposition: Admitted As Inpatient Print Language: Hebrew
[2025-02-10] MEDS: diazePAM 10 MG/2 ML CARTRIDGE 5 MG IVPUSH ×2 (20:01→21:39)
[2025-02-10 20:04] LABS: MANUAL DIFF FLAG NO
[2025-02-10 20:17] LABS: Hematocrit 43.0 % (42.0-52.0); Hemoglobin 14.8 g/dl (14.0-18.0); Imm Gran Abs Auto 0.27 X10*3/uL (0.00-0.03); Imm Gran Pct Auto 1.4 % (0.0-0.4); Lymphocytes Absolute Auto 1.9 X10*3/uL (1.2-4.9); Mean Corpuscular HGB Conc 34.4 g/dl (31.0-36.0); Mean Corpuscular Hemoglobin 30.3 pg (27.0-33.0); Mean Corpuscular Volume 88.1 fL (80.0-98.0); NRBC Abs Auto 0.030 X10*3/uL (0.0-0.012); NRBC Pct Auto 0.2 /100WBC (0.0-0.2); Platelet Count 595 X10*3/uL (160-400); Red Blood Count 4.88 X10*6/uL (4.60-5.80); White Blood Count 18.9 X10*3/uL (4.8-10.8)
[2025-02-10 20:26] LABS: INTERNATIONAL NORM RATIO 0.9 (0.9-1.1); Prothrombin Time 10.3 SEC (10.9-12.4)
--- NOTE | 2025-02-10 20:27 | PC.NURSE ---
spoke with pt per pt request- notified of pt in dept
[2025-02-10 20:38] VITALS: BP 137/90; PULSE 109; TEMP 36.7; O2SAT 97
[2025-02-10 20:38] LABS: Alanine Aminotransferase 29 U/L (0-40); Albumin Level 4.3 g/dL (3.5-5.0); Alkaline Phosphatase 63 U/L (39-117); Anion Gap 16 (12-20); Aspartate Amino Transferase 27 U/L (5-37); Blood Urea Nitrogen 4 mg/dL (9-16); Calcium 8.7 mg/dL (8.4-10.2); Carbon Dioxide 24 mmol/L (22-29); Chloride 100 mmol/L (96-108); Creatinine Clr Calc Pharmacy 153.2; Estimated Glomerular Filt Rate > 60; Lipase 46 U/L (8-78); Potassium 3.5 mmol/L (3.3-5.1); Sodium 136 mmol/L (135-145); Total Protein 7.0 g/dL (6.5-8.0)
[2025-02-10 20:45] LABS: Troponin-I High Sensitivity < 2.7 ng/L (<3.5-35.0)
--- NOTE | 2025-02-10 21:10 | PC.NURSE ---
pt called this nurse to room stated he was seeing things bright light balls . SHAYNE obtained score: 31- MD notified Phenobarbital protocol initiated.
[2025-02-10 21:40] VITALS: BP 134/94; PULSE 131; RESP 26; O2SAT 96
[2025-02-10] MEDS: PHENobarbitaL sodium 130 MG/ML IM ONCE 328 MG IM (21:53)
--- NOTE | 2025-02-10 21:55 | PC.NURSE ---
colchicine requested form pharmacy
[2025-02-10] MEDS: iohexoL 350 MG/ML 100 ML INFUS..BTL 85 ML IV (22:01)
[2025-02-10 22:37] VITALS: PULSE 105
[2025-02-10 23:49] VITALS: BP 123/92; PULSE 106; RESP 20; O2SAT 94
[2025-02-11] MEDS: PHENobarbitaL sodium 130 MG/ML VIAL IM Q3Hx2 246 MG IM ×2 (01:10→04:37)
--- NOTE | 2025-02-11 01:52 | P.HPHOSP_ITS ---
History of Present Illness Date of Service: 02/11/25 Attending physician on admission: Rubina Ashby Chief Complaint: Chest pain Jack Burns is a 34 years old man with past medical history significant for alcohol abuse and pericarditis on colchicine and prednisone presents to the emergency department complaining of mid chest pain that started 4 days. He described the pain as a pressure radiating to the back. It was 10/10 but now is 6/10 after receiving pain medications. The pain increases with deep inspiration. He admitted that he has not been taking the consistent for the last several days. He also reported heartburn and on episodes of vomiting. He is not currently nauseous. He did not report diarrhea, headache, fever or chills. He denied cocaine use. He smoked marijuana at times. He drinks daily 50-55 beers. Last alcoholic drink was this morning. In the ED, was found to have stable vital signs except for slight tachycardia 106. Blood workup showed leukocytosis of 18.9. Hemoglobin is 14.8 and platelets 595. INR is 0.9. There are no significant electrolyte imbalances. BUN is 4 and creatinine 0.75. Glucose 121. LFTs, troponin lipase are normal. ETOH level is 124. ECG shows sinus tachycardia, 135 beats per minute and nonspecific T-waves abnormalities. Chest and abdominal pelvis CT scan showed no acute findings except for mild anterior pericardial thickening favoring and small amount of fluids otherwise no acute findings. ED tx: Aspirin 325 mg p.o., morphine 8 mg IV total, Valium 10 mg IV to oral, Zofran 4 mg IV, colchicine 0.6 mg p.o. x1, phenobarbital 325 mg IM, Compazine 10 mg IV Review of Systems 2 Review of Systems: All 12 systems were reviewed and normal except as noted in HPI. [facility] Medical History Pericardial effusion Alcohol use disorder, moderate, dependence MDD (major depressive disorder), recurrent episode, moderate Nausea with vomiting Alcohol use disorder Anxiety and depression History of seizure due to alcohol withdrawal ETOH abuse Family History Other Diabetes Social History Household Members: Family Housing: Apartment Do you presently have visiting nurse or other home services: No Alcohol intake: current Alcohol intake frequency: 3 or more drinks per day Alcohol type: beer Patient Tobacco Use Status: Former Tobacco user Tobacco use type: Cigarette Smoked in Last 30 Days: Yes e-Cigarette/Vaping Use: Never Used Second Hand Smoke Exposure: No Substance Use Type: Crack/Cocaine Advance Directives: Yes Advance Directives on File: Yes Advance Directives Date on File: 11/07/22 Do you have a plan to hurt others: No Plan service: No Current occupational status: employed Meds Allergies Allergy/AdvReac Type Severity Reaction Status Date / Time No Known Allergies Allergy Verified 02/10/25 19:32 Active Medications: Current Medications Acetaminophen (Acetaminophen 325 Mg Tablet) 975 mg PO Q6H PRN PRN Reason: Pain, Mild 1-3,fever,headache Colchicine (Colchicine 0.6 Mg Tablet) 0.6 mg PO BID [facility] Enoxaparin Sodium (Enoxaparin Sodium 40 Mg/0.4 Ml Syringe) 40 mg SUBCUT Q24H [facility] Thiamine HCl 100 mg/ Sodium (Chloride) 101 mls @ 202 mls/hr IV ONCE STA Stop: 02/11/25 02:04 Melatonin (Melatonin 3 Mg Tablet) 6 mg PO BEDTIME PRN PRN Reason: Insomnia Pantoprazole Sodium (Pantoprazole Sodium 40 Mg/10 Ml Vial) 40 mg IVPUSH DAILY [facility] Pharmacy Consult (Consult Rx Etoh Phenob Im/Po) 1 each MISCELLANE ONCE PRN; Protocol PRN Reason: Consult order Phenobarbital (Phenobarbital 15 Mg Tablet) 45 mg PO BID [facility] Stop: 02/12/25 21:01 Phenobarbital (Phenobarbital 15 Mg Tablet) 15 mg PO BID [facility] Stop: 02/14/25 21:01 Phenobarbital (Phenobarbital 15 Mg Tablet) 15 mg PO DAILY [facility] Stop: 02/16/25 09:01 Phenobarbital Sodium (Phenobarbital Sodium 130 Mg/Ml Vial Im Q3hx2) 246 mg IM Q3H [facility] Stop: 02/11/25 04:01 Last Admin: 02/11/25 01:10 Dose: 246 mg Prednisone (Prednisone 10 Mg Tablet) 30 mg PO DAILY [facility] Sodium Chloride (0.9 % Sodium Chloride Flush 3 Ml Syringe) 3 ml IVFLUSH QSHIFT [facility] Home Medications ?Medication ?Instructions ?Recorded ?Confirmed ?Last Taken ?Type ibuprofen 200 mg tablet 600 mg PO TID PRN Pain 05/1512/28/24 05/14/24 History pantoprazole 40 mg tablet,delayed 40 mg PO DAILY@30 12/28/24 12/28/24 12/27/24 History release prednisone 10 mg tablet 25 mg PO DAILY 12/28/2412/0612/27/24 History Physical Exam 2 Vital Signs and Narrative: Vital Signs: Last Vital Signs Temp 98.1 F 02/10/25 20:38 Pulse 106 H 02/10/25 23:49 Resp 20 02/10/25 23:49 BP 123/92 H 02/10/25 23:49 Pulse Ox 94 02/10/25 23:49 O2 Del Method Room Air 02/10/25 23:49 BMI result Body Mass Index 30.4 Constitutional - Awake and Alert. Looks uncomfortable due to pain. HEENT - PER, EOMI. Normal sclerae. Heart - tachycardic, normal rhythm. No murmurs. Lungs - Normal lung expansion, Normal respiratory effort, No respiratory distress, CTA bilaterally Abdomen - NT / ND; +BS; No rebound or guarding Extremities - no calf tenderness bilaterally, no swelling Musculoskeletal - Normal inspection, normal ROM Skin - Warm/Dry Neurological - Alert & oriented x3. Moving all extremities spontaneously. Normal speech. Psychological - Appropriate affect Results Labs 02/10/25 19:55 02/10/25 20:17 Labs: Laboratory Results - last 24 hr 02/10/25 02/10/25 02/10/25 19:55 19:56 20:17 MCV 88.1 MCH 30.3 MCHC 34.4 RDW 14.2 Plt Count 595 H D MPV 8.7 L Immature Gran % (Auto) 1.4 H Neut % (Auto) 81.9 H Lymph % (Auto) 10.3 L [place] % (Auto) 6.1 Eos % (Auto) 0.0 Baso % (Auto) 0.3 Lymph # (Auto) 1.9 [place] # (Auto) 1.2 Eos # (Auto) 0.0 Baso # (Auto) 0.1 Abs Immat Gran (auto) 0.27 H Absolute Neuts (auto) 15.5 H Absolute Nucleated RBC 0.030 H Nucleated RBC % (auto) 0.2 ESR 2 PT 10.3 L INR 0.9 Anion Gap 16 Estim Creat Clear Calc 153.2 Estimated GFR > 60 Random Glucose 121 H Calcium 8.7 Total Bilirubin 0.3 AST 27 ALT 29 Alkaline Phosphatase 63 Total Creatine Kinase 62 C-Reactive Protein 0.30 Total Protein 7.0 Albumin 4.3 Lipase 46 Ethyl Alcohol 124 Assessment and Plan (1) Alcohol withdrawal syndrome: Qualifiers: Complication of substance-induced condition: uncomplicated Qualified Code(s): F10.930 - Alcohol use, unspecified with withdrawal, uncomplicated Status: Acute (2) Pericarditis: Qualifiers: Chronicity: acute Pericarditis type: unspecified type Qualified Code(s): I30.9 - Acute pericarditis, unspecified Status: Acute Plan Jack Burns is a 34 y/o man admitted with: * Alcohol withdrawal syndrome. Admit to hospitalist service. CIWA. Continue phenobarbital protocol. Continue thiamine, folic acid and multivitamins. * Chest pain secondary to pericarditis. Continue prednisone and colchicine. Pt missed several doses of colchicine. Oxycodone as needed. * Heartburn. Protonix IV. DVT prophylaxis: Lovenox Code status: Full Patient will need hospitalization for at least 2 midnights for alcohol withdrawal syndrome treatment with phenobarbital and continuous monitoring of CIWA. Quality Stroke Does the patient have a stroke diagnosis?: No VTE Prior VTE?: No VTE Risk Level:: Medical - moderate - high VTE Device Contraindication: Treatment Not Indicated VTE Drug Contraindication: N/A - Med Ordered
[2025-02-11] MEDS: Thiamine HCL 100 MG in 0.9 % Sodium Chloride 100 ML 202 MG IV (02:04)
[2025-02-11 02:25] VITALS: BP 138/87; PULSE 95; RESP 19; O2SAT 95
--- NOTE | 2025-02-11 04:50 | PC.NURSE ---
pt reported the Dilaudid helped his cp for some time and now pain has returned. said pain was better after getting the protonix as well. notified MD and suggested giving GI cocktail for sx. pt and in agreement.
[2025-02-11] MEDS: Lidocaine HCl Viscous 2 % 15 ML SOLUTION MUCOUS MEM (05:39)
[2025-02-11] MEDS: Magnesium Hydrox/Alum Hydrox 30 ML ORAL.SUSP PO (05:39)
[2025-02-11] MEDS: PHENobarb/Hyoscy/Atropine/Scop 10 ML ELIXIR 5 ML PO (05:40)
[2025-02-11 05:46] VITALS: BP 112/86; PULSE 98; RESP 14; O2SAT 99
[2025-02-11 06:52] LABS: Hematocrit 40.8 % (42.0-52.0); Hemoglobin 13.6 g/dl (14.0-18.0); Imm Gran Abs Auto 0.11 X10*3/uL (0.00-0.03); Imm Gran Pct Auto 0.7 % (0.0-0.4); Lymphocytes Absolute Auto 4.0 X10*3/uL (1.2-4.9); MANUAL DIFF FLAG SCAN; Mean Corpuscular HGB Conc 33.3 g/dl (31.0-36.0); Mean Corpuscular Hemoglobin 30.0 pg (27.0-33.0); Mean Corpuscular Volume 89.9 fL (80.0-98.0); NRBC Abs Auto 0.000 X10*3/uL (0.0-0.012); NRBC Pct Auto 0.0 /100WBC (0.0-0.2); Platelet Count 475 X10*3/uL (160-400); Red Blood Count 4.54 X10*6/uL (4.60-5.80); SCAN SMEAR FLAG 1; White Blood Count 16.3 X10*3/uL (4.8-10.8)
[2025-02-11 07:17] LABS: Anion Gap 17 (12-20); Blood Urea Nitrogen 7 mg/dL (9-16); Calcium 8.3 mg/dL (8.4-10.2); Carbon Dioxide 25 mmol/L (22-29); Chloride 101 mmol/L (96-108); Creatinine Clr Calc Pharmacy 157.4; Estimated Glomerular Filt Rate > 60; Magnesium 1.9 mg/dL (1.6-2.6); Potassium 3.6 mmol/L (3.3-5.1); Sodium 139 mmol/L (135-145)
[2025-02-11 07:58] VITALS: BP 123/77; PULSE 116; RESP 21; TEMP 36.9
[2025-02-11] MEDS: oxyCODONE HCl Immed Release 5 MG TABLET PO (08:09)
--- NOTE | 2025-02-11 08:26 | PC.NURSE ---
PT A&Ox4, breathing unlabored. skin p/w/d. Pt reports 7/10 chest pain, worsens mostly with movement. Pt medicated with Oxy as charted. Sinus tach on tele. Pt reports alcohol withdrawal symptoms improving. CIWA 3. Plan of care ongoing.
[2025-02-11] MEDS: 0.9 % Sodium Chloride Flush 3 ML SYRINGE IVFLUSH (08:53)
--- NOTE | 2025-02-11 08:54 | PC.NURSE ---
Pt reports being accepted into [facility] on Monday
--- NOTE | 2025-02-11 09:33 | PHA.MEDREC ---
Pharmacy Consult ? Medication Reconciliation Pharmacy has completed the medication reconciliation. Spoke with patient at bedside to confirm home meds. He states the prednisone is back to 30mg daily, he has naltrexone at home and chlordiazepoxide for alcohol withdrawal and addiction but he hasn't really started taking it as the chlordiazepoxide makes him feel funny. He would like help getting treatment/starting therapy. Will communicate to provider.
--- NOTE | 2025-02-11 11:27 | MHC.CM.PN ---
PATIENT RESTING BETWEEN CARE.DOES NOT STAY AWAKE LONG ENOUGH FOR ASSESSMENT ATTEMPTS. PER REVIEW OF CHART, INDEPENDENT PRIOR TO ARRIVAL. NO HCP ON FILE. NO PCP LISTED. [facility] [employer]. CM FOLLOWING FOR ASSESSMENT AND DC PLANNING.
--- NOTE | 2025-02-11 11:36 | PM.DS ---
DS: Providers Provider Date of Service: 02/11/25 Date of admission: 02/11/25 01:12 Date of discharge: 02/11/25 Primary care physician: Unknown Physician DS: Diagnosis Discharge Diagnosis (1) Alcohol withdrawal syndrome: Status: Acute (2) Pericarditis: Status: Acute DS: Summary Hospital Course Hospital Course: from initial hpi: 34 years old man with past medical history significant for alcohol abuse and pericarditis on colchicine and prednisone presents to the emergency department complaining of mid chest pain that started 4 days. He described the pain as a pressure radiating to the back. It was 10/10 but now is 6/10 after receiving pain medications. The pain increases with deep inspiration. He admitted that he has not been taking the consistent for the last several days. He also reported heartburn and on episodes of vomiting. He is not currently nauseous. He did not report diarrhea, headache, fever or chills. He denied cocaine use. He smoked marijuana at times. He drinks daily 50-55 beers. Last alcoholic drink was this morning. In the ED, was found to have stable vital signs except for slight tachycardia 106. Blood workup showed leukocytosis of 18.9. Hemoglobin is 14.8 and platelets 595. INR is 0.9. There are no significant electrolyte imbalances. BUN is 4 and creatinine 0.75. Glucose 121. LFTs, troponin lipase are normal. ETOH level is 124. ECG shows sinus tachycardia, 135 beats per minute and nonspecific T-waves abnormalities. Chest and abdominal pelvis CT scan showed no acute findings except for mild anterior pericardial thickening favoring and small amount of fluids otherwise no acute findings. ED tx: Aspirin 325 mg p.o., morphine 8 mg IV total, Valium 10 mg IV to oral, Zofran 4 mg IV, colchicine 0.6 mg p.o. x1, phenobarbital 325 mg IM, Compazine 10 mg IV hospital course: Patient was admitted for alcohol dependence with withdrawal. Was treated with phenobarbital and significantly improved. Withdrawal symptoms have resolved. Patient will continue to follow up with addiction Services as outpatient. For chest pain secondary to chronic pancreatitis was continued on prednisone and colchicine and will follow up with Cardiology later this week. Patient will be discharged home. Time Attestation Discharge Coordination Time (in mins): 33 Quality: Safe Use of Opioids Does Pt have an Active Cancer Diagnosis on the Problem List?: No Quality: Stroke Does the patient have a stroke diagnosis?: No Physical Exam Vital Signs: Vital Signs: Last Vital Signs Temp 98.4 F 02/11/25 07:58 Pulse 116 H 02/11/25 07:58 Resp 21 H 02/11/25 07:58 BP 123/77 02/11/25 07:58 Pulse Ox 99 02/11/25 05:46 O2 Del Method Room Air 02/11/25 07:58 BMI result Body Mass Index 30.4 General: AO X 3, no acute distress Resp: CTA bilateral, no accessory muscles used CVS: S1,S2,RRR GI: soft, non tender, non distended Neuro: motor grossly intact, alert Psych: appropriate affect, appropriate insight DS: Data Data Completed and Pending Completed studies during hospitalization [Text1]: Procedures Detoxification Services for Substance Abuse Treatment (05/09/23) Labs on day of discharge: Laboratory Results - last 24 hr 02/10/25 02/10/25 02/10/25 19:55 19:56 20:17 WBC 18.9 H RBC 4.88 Hgb 14.8 Hct 43.0 MCV 88.1 MCH 30.3 MCHC 34.4 RDW 14.2 Plt Count 595 H D MPV 8.7 L Immature Gran % (Auto) 1.4 H Neut % (Auto) 81.9 H Lymph % (Auto) 10.3 L [place] % (Auto) 6.1 Eos % (Auto) 0.0 Baso % (Auto) 0.3 Lymph # (Auto) 1.9 [place] # (Auto) 1.2 Eos # (Auto) 0.0 Baso # (Auto) 0.1 Abs Immat Gran (auto) 0.27 H Absolute Neuts (auto) 15.5 H Absolute Nucleated RBC 0.030 H Nucleated RBC % (auto) 0.2 Smear Tech's Comments ESR 2 PT 10.3 L INR 0.9 Sodium 136 Potassium 3.5 Chloride 100 Carbon Dioxide 24 Anion Gap 16 BUN 4 L Creatinine 0.75 Estim Creat Clear Calc 153.2 Estimated GFR > 60 Random Glucose 121 H Calcium 8.7 Magnesium Total Bilirubin 0.3 AST 27 ALT 29 Alkaline Phosphatase 63 Total Creatine Kinase 62 Troponin I High Sens < 2.7 C-Reactive Protein 0.30 Total Protein 7.0 Albumin 4.3 Lipase 46 Ethyl Alcohol 124 02/11/25 06:24 WBC 16.3 H RBC 4.54 L Hgb 13.6 L Hct 40.8 L MCV 89.9 MCH 30.0 MCHC 33.3 RDW 14.4 Plt Count 475 H MPV 8.7 L Immature Gran % (Auto) 0.7 H Neut % (Auto) 62.7 Lymph % (Auto) 24.3 [place] % (Auto) 11.7 H Eos % (Auto) 0.2 Baso % (Auto) 0.4 Lymph # (Auto) 4.0 [place] # (Auto) 1.9 H Eos # (Auto) 0.0 Baso # (Auto) 0.1 Abs Immat Gran (auto) 0.11 H Absolute Neuts (auto) 10.2 H Absolute Nucleated RBC 0.000 Nucleated RBC % (auto) 0.0 Smear Tech's Comments VERIFIED ESR PT INR Sodium 139 Potassium 3.6 Chloride 101 Carbon Dioxide 25 Anion Gap 17 BUN 7 L Creatinine 0.73 Estim Creat Clear Calc 157.4 Estimated GFR > 60 Random Glucose 75 Calcium 8.3 L Magnesium 1.9 Total Bilirubin AST ALT Alkaline Phosphatase Total Creatine Kinase Troponin I High Sens C-Reactive Protein Total Protein Albumin Lipase Ethyl Alcohol Discharge Plan Discharge Anticipated Discharge Date/Time: 02/11/25 11:35 Patient Disposition: Home, Self-Care Discharge Diagnosis: Pericarditis and alcohol withdrawal Referrals: PhysicianJohana J [Primary Care Provider, Medical] - 1 Week Discharge Medications: Continued chlordiazepoxide HCl 25 mg capsule 50 mg PO Q4H PRN (Reason: alcohol withdrawal) Qty: 12 0RF Rx Instructions: until symptoms controlled naltrexone 50 mg Tablet 50 mg PO DAILY ibuprofen 200 mg Tablet 600 mg PO TID PRN (Reason: Pain) colchicine 0.6 mg tablet 0.6 mg PO BID 28 Days Qty: 56 0RF prednisone 10 mg tablet 30 mg PO DAILY pantoprazole 40 mg Tablet,Delayed Release (Dr/Ec) 40 mg PO DAILY@0630 Discharge Orders: Discharge Order (Routine); Ordered 02/11/25 Ordered By: Devon Wright Diet: Advance to usual diet Activity on Discharge: As tolerated Stand Alone Forms: Patient Portal Discharge page Print Language: Serbian Care Plan Goals: Recovery Health Concerns: Pericarditis and alcohol Plan of Treatment: Continue prednisone and colchicine and follow up with Cardiology Avoid alcohol, monitor for withdrawal, follow up with addiction Services Assessment: See above
--- NOTE | 2025-02-11 12:19 | P.CDIM_ITS ---
PROVIDER RESPONSE TEXT: To clarify, the appropriate diagnosis supported by the clinical indicators: Pericarditis: chronic QUERY TEXT: PHYSICIAN'S DOCUMENTATION REQUEST Date of Query: 02/11/2025 12:03 PM EDT Patient Name: Jack Burns Admit Date: 02/11/2025 Dear Devon Wright MD, A review of the medical record indicates additional documentation may be needed. Please review below and update the documentation accordingly. Clinical Indicators: Progress notes & Discharge summary: PMH significant for alcohol abuse and pericarditis on colchicine and prednisone, presents to Ed complaining of chest pain and pressure radiating to the back. Pain increases with deep inspiration. Reports heartburn and episodes of vomiting. Drinks 50-55 beers daily. Tachycardia 106. ETOH level 124. ECG shows sinus tachycardia. CT showed mild anterior pericardial thickening favoring and small amounts of fluids. Aspirin, morphine, valium, zofran, colchicine, phenobarbital, compazine. Clarify which of the following accurately represents specifics to the documented Pericarditis within the body of the written Plan: Possible options might include: Pericarditis Acute, chronic, bacterial, suppurative, idiopathic etc. Other specified Other (explain) Clinically unable to determine (explain) Thank you, Theresa Palomino, CCS, CDIS Use of terms such as suspected, likely, concern for, or probable (associated with a specific diagnosis that is being evaluated, monitored, or treated as if it exists) are acceptable and can be coded in the inpatient setting, when documented at the time of discharge. Please use your independent medical judgment in providing your response. THIS QUERY IS PART OF THE PERMANENT MEDICAL RECORD
--- NOTE | 2025-02-11 12:44 | MHC.CM.PN ---
PATIENT IS DC HOME SELF CARE WITH OUTPATIENT FOLLOW UP. NO CASE MANAGEMENT INTERVENTION REQUIRED.
== END 2025-02-11 13:39 | disposition home or self-care (01) | DRG 775 ==
LOC: HO.ED 02-11 01:32 → HO.EDOVER 02-11 01:39
PROVIDERS: Admitting Provider Internal Medicine; Emergency Provider Emergency Medicine; Visit Provider Internal Medicine
DX: F10.239 Alcohol dependence with withdrawal, unspecified (principal); I31.9 Disease of pericardium, unspecified; R12 Heartburn; Y90.6 Blood alcohol level of 120-199 mg/100 ml; T50.4X6A Underdosing of drugs affecting uric acid metabolism, initial encounter; Z79.899 Other long term (current) drug therapy
CPT/HCPCS: 36415; 71250; 74177; 80048; 80053; 80307; 82550; 83690; 83735; 84484; 85025; 85610; 85652; 86140; 93005; 99221; 99285; J0737; J1171; J1650; J2270; J2405; J2470; J2560; J3360; J3411; Q9967

== ENCOUNTER → 2025-02-10 19:35 | Outpatient (BNV) | payer OTHER, SELFPAY | PROVIDERS: Admitting Provider Internal Medicine; Emergency Provider Emergency Medicine; Visit Provider Internal Medicine Cardiovascular Disease | DX: R00.0 Tachycardia, unspecified (principal) | CPT/HCPCS: 93010 ==

== ENCOUNTER → 2025-02-10 19:59 | Outpatient (BNV) | payer OTHER, SELFPAY | PROVIDERS: Emergency Provider Emergency Medicine; Visit Provider Radiology Diagnostic Radiology | DX: R07.9 Chest pain, unspecified (principal); R10.13 Epigastric pain; Z86.79 Personal history of other diseases of the circulatory system | CPT/HCPCS: 71250; 74177 ==

== ENCOUNTER → 2025-02-11 01:12 | Outpatient (BNV) | payer OTHER, SELFPAY | PROVIDERS: Admitting Provider Internal Medicine; Emergency Provider Emergency Medicine; Visit Provider Internal Medicine | DX: F10.930 Alcohol use, unspecified with withdrawal, uncomplicated (principal); I30.9 Acute pericarditis, unspecified | CPT/HCPCS: 99236; 99499 ==

== ENCOUNTER 2025-02-21 13:42 | Inpatient (IN) | payer OTHER, SELFPAY ==
[2025-02-21] VITALS (11 sets, daily range): BP systolic 128–186; BP diastolic 79–166; PULSE 95–140; RESP 12–26; TEMP 36.4–37.3; O2SAT 95–98; BMI 32.0; BMI 30.1
--- NOTE | 2025-02-21 | ECG_ITS ---
Test Reason : chest pain Blood Pressure : */* mmHG Vent. Rate : 132 BPM Atrial Rate : 132 BPM P-R Int : 144 ms QRS Dur : 74 ms QT Int : 294 ms P-R-T Axes : 55 58 67 degrees QTcB Int : 435 ms Sinus tachycardia Otherwise normal ECG When compared with ECG of 10-Feb-2025 19:35, No significant change was found Referred By: Generic ED Physician Electronically Signed By: DANIELLE MARION
--- NOTE | ~2025-02-21 | US_ITS ---
CLINICAL HISTORY: calf swelling Right lower extremity venous duplex ultrasound Study was performed using color and spectral waveform analysis. Comparison: None Findings: Visualized deep veins are fully compressible with normal flow and augmentation. No popliteal cyst. No significant adenopathy. Impression: Right lower extremity venous duplex ultrasound negative for DVT This document has been electronically signed by: Kennedy Alford MD on 02/21/2025 19:55:44
--- NOTE | ~2025-02-21 | XR_ITS ---
EXAMINATION: XR CHEST CLINICAL INFORMATION: chest pain COMPARISON: January 23, 2025 TECHNIQUE: Frontal view of the chest was obtained. FINDINGS: No significant abnormality is noted involving the heart, lungs, mediastinum, bony thorax or soft tissues. XR/XR chest 1V IMPRESSION: No acute change Electronically signed by: Edi Correa MD 02/21/2025 03:57 PM EDT RP
--- NOTE | 2025-02-21 13:59 | ED_ITS ---
HPI - Chest Pain General Chief Complaint: Chest Pain Stated Complaint: CHEST PAIN Time Seen by Provider: 02/21/25 13:59 History of Present Illness ED Provider: Mark Franks MD HPI narrative: [age] male with chronic pericarditis with a acute on chronic discomfort of the chest consistent with his previous episodes. Also reports alcohol withdrawal drank a little bit prior to arrival here but feels he is withdrawing feels hallucinations including insects crawling up his legs and elephant in the room. No abdominal pain denies trauma. Denies any other drug use. Related Data Home Medications ?Medication ?Instructions ?Recorded ?Confirmed prednisone 10 mg tablet See Taper PO DAILY 12/28/24 02/21/25 prednisone 1 mg tablet See Taper PO DAILY 02/21/25 02/21/25 thiamine HCl (vitamin B1) 100 mg 100 mg PO DAILY 02/2102/21/25 tablet (Vitamin B-1) Previous Rx's ?Medication ?Instructions ?Recorded colchicine 0.6 mg tablet 0.6 mg PO BID 4 weeks #56 ta bs 05/16/24 Allergies Allergy/AdvReac Type Severity Reaction Status Date / Time No Known Allergies Allergy Verified 02/21/25 13:56 [facility] Past Medical History Medical History Pericardial effusion Alcohol use disorder, moderate, dependence MDD (major depressive disorder), recurrent episode, moderate Nausea with vomiting Alcohol use disorder Anxiety and depression History of seizure due to alcohol withdrawal ETOH abuse Family History Family History Other Diabetes Social History Social History Household Members: Spouse and Children Housing: House Do you presently have visiting nurse or other home services: No Alcohol intake: current Alcohol intake frequency: 3 or more drinks per day Alcohol type: beer and hard liquor Patient Tobacco Use Status: Former Tobacco user Tobacco use type: Cigarette e-Cigarette/Vaping Use: Never Used Second Hand Smoke Exposure: No Substance Use Type: Crack/Cocaine Advance Directives Date on File: 11/07/22 service: No (PATIENT ASLEEP AND NOT EASILY AROUSEDFOR ASSESSMENTCONVERSATION) Current occupational status: employed Physical Exam 2 Exam: Exam: EXAM: Gen: Alert, awake, distressed, tachycardic diaphoretic appears uncomfortable not grossly psychotic he is cooperative Head: Atraumatic Eyes: Anicteric, Normal conjunctiva. ENT: Moist mucosa, no pallor. ? Neck: Supple. Skin: ?No observable rash or bruising on exposed or examined skin Respiratory: Breathing comfortably, No distress.Clear to auscultation bilaterally, symmetric chest expansion, No wheeze, rales, ronchi. Cardiovascular: Rapid regular. No murmurs or rub. Well perfused periphery, warm extremities. No edema. ? Abdominal: No focal tenderness. Soft, no objective distension. No palpable masses or obvious organomegaly. ?No guarding, no rebound tenderness or other peritoneal findings. : No flank tenderness. Neuro: Alert. Gross movement of all extremities intact. ? Psych: Calm. Cooperative. Anxious and feels he is withdrawing. No SI or HI MSK: No grossly visible deformity. Vital signs: See flowsheet Vital Signs: Vital Signs: Last Vital Signs Temp 98.9 F 02/22/25 03:10 Pulse 90 02/22/25 03:10 Resp 18 02/22/25 03:10 BP 139/88 02/22/25 03:10 Pulse Ox 98 02/22/25 03:10 O2 Del Method Room Air 02/22/25 03:10 BMI result Body Mass Index 32.0 Medications Administered Discontinued Medications Generic Name Dose Route Start Last Admin Trade Name Jean-Pierreq PRN Reason Stop Dose Admin Acetaminophen 650 mg 02/21/25 15:18 02/21/25 16:55 Acetaminophen 325 Mg Tablet PO 650 mg Q6H PRN Administration Pain, Mild 1-3,fever,headache Colchicine 0.6 mg 02/21/25 21:00 02/21/25 21:37 Colchicine 0.6 Mg Tablet PO 0.6 mg BID EL Administration Cyclobenzaprine HCl 10 mg 02/21/25 18:43 02/21/25 18:59 Cyclobenzaprine Hcl 10 Mg Tablet PO 02/21/25 18:44 10 mg ONCE ONE Administration Diazepam 10 mg 02/21/25 14:15 02/21/25 14:18 Diazepam 10 Mg/2 Ml Cartridge IVPUSH 02/21/25 14:16 10 mg STAT STA Administration Diazepam 10 mg 02/21/25 17:19 02/21/25 17:32 Diazepam 10 Mg/2 Ml Cartridge IVPUSH 02/21/25 17:20 10 mg STAT STA Administration Diazepam 10 mg 02/21/25 19:19 02/21/25 19:30 Diazepam 10 Mg/2 Ml Cartridge IVPUSH 02/21/25 19:20 10 mg STAT STA Administration Enoxaparin Sodium 40 mg 02/21/25 15:30 02/21/25 15:43 Enoxaparin Sodium 40 Mg/0.4 Ml Syringe SUBCUT 40 mg Q24H EL Administration Thiamine HCl 500 mg/ Sodium 105 mls @ 210 mls/hr 02/21/25 14:00 02/21/25 14:38 Chloride IV 02/21/25 14:29 Infused ONCE ONE Infusion Lactated Ringer's 1,000 mls @ 999 mls/hr 02/21/25 14:30 02/21/25 15:43 Lr IV 02/21/25 15:30 Infused .Q1H1M EL Infusion Potassium Chloride 10 meq in 100 mls @ 100 mls/hr 02/21/25 16:00 02/21/25 21:43 Potassium Chloride/H20 IV 02/21/25 19:59 Infused Q1H EL Infusion Lorazepam 2 mg 02/21/25 14:00 02/21/25 14:03 Lorazepam 2 Mg/Ml Vial IVPUSH 02/21/25 14:01 2 mg ONCE ONE Administration Melatonin 6 mg 02/21/25 15:18 02/21/25 20:44 Melatonin 3 Mg Tablet PO 6 mg BEDTIME PRN Administration Insomnia Morphine Sulfate 2 mg 02/21/25 17:19 02/21/25 17:31 Morphine Sulfate 2 Mg/Ml Cartridge IVPUSH 02/21/25 17:20 2 mg ONCE ONE Administration Protocol Ondansetron HCl 4 mg 02/21/25 14:15 02/21/25 14:18 Ondansetron Hcl 4 Mg/2 Ml Vial IVPUSH 02/21/25 14:16 4 mg ONCE ONE Administration Ondansetron HCl 4 mg 02/21/25 15:18 02/21/25 18:59 Ondansetron Hcl 4 Mg/2 Ml Vial IVPUSH 4 mg Q8H PRN Administration Nausea and Vomiting Ondansetron HCl 4 mg 02/22/25 00:36 02/22/25 00:51 Ondansetron Hcl 4 Mg/2 Ml Vial IVPUSH 02/22/25 00:37 4 mg ONCE ONE Administration Pantoprazole Sodium 40 mg 02/21/25 14:21 02/21/25 14:42 Pantoprazole Sodium 40 Mg/10 Ml Vial IVPUSH 02/21/25 14:22 40 mg ONCE ONE Administration Phenobarbital 45 mg 02/21/25 21:00 02/21/25 21:37 Phenobarbital 15 Mg Tablet PO 02/23/25 09:01 45 mg BID EL Administration Phenobarbital Sodium 274 mg 02/21/25 15:30 02/21/25 15:42 Phenobarbital Sodium 130 Mg/Ml Im Once IM 02/21/25 15:31 274 mg ONCE ONE Administration Phenobarbital Sodium 205 mg 02/21/25 18:30 02/21/25 21:17 Phenobarbital Sodium 130 Mg/Ml Vial Im Q3hx2 IM 02/21/25 21:31 205 mg Q3H EL Administration Potassium Chloride 40 meq 02/21/25 15:23 02/21/25 16:56 Potassium Chloride Packet 20 Meq Packet PO 02/21/25 15:24 40 meq ONCE ONE Administration Sodium Chloride 3 ml 02/21/25 16:00 02/22/25 00:00 0.9 % Sodium Chloride Flush 3 Ml Syringe IVFLUSH 3 ml QSHIFT EL Administration Procedures Procedure Narrative Procedure Narrative: EMERGENCY ULTRASOUND INTERPRETATION-Limited Echocardiography [This study was ordered, performed, and interpreted by myself. The study reveals: Impression: NORMAL LV FUNCTION, NO RV DYSFUNCTION, NO PERICARDIAL EFFUSION] [Emergent Cardiac for Indication: Views Used: PLAX, PSSA, A4, SX, IVC Pericardial Effusion/Tamponade Findings: NONE RV Dilation (> LV diam in 4ch apical): NONE Global LV Fxn: NORMAL IVC Dilation and Resp Variation: NORMAL Performed by: MD Golden Images were stored CPT:38502] Medical Decision Making Medical Decision Making MDM Narrative: Medical Decision Makin-year-old male with chronic pericarditis still on prednisone follows with survey coordinator here with subjective alcohol withdrawal. Recent alcoholic drink was several hours ago, he subjectively feels ?ants crawling on me ?and reports visual hallucinations of ?elephants ?. He has chest pain that is acute on chronic no hemoptysis cough fever. He is tachycardic hypertensive and feels he is withdrawing again. We started with IV fluid Valium he is hypokalemic as well. Bedside echo excludes pericardial effusion or evidence of hypokinesis or RV dilation. Probable acute on chronic pericarditis no indication for emergent treatment at this time. Severe alcohol withdrawal to be treated with benzos followed by loading dose phenobarbital orally. Thiamine, fluid Preliminary Favored Differential Diagnosis: Severe alcohol withdrawal, electrolyte derangement, encephalopathy/visual hallucinations, acute on chronic pericarditis, pleuritis, less likely pneumonia or pneumothorax or effusion though considered among additional considered etiologies Testing Interpreted Independently: ECG: Sinus rhythm tachycardia rate 132 QTC 435 no acute ischemic changes. Artifact in V3 no ischemic changes. See attached point of care ultrasound report Radiology or Lab testing Results Reviewed: Not Applicable Consults: Not Applicable Independent Historians/External Chart Reviews: Not Applicable Social Determinants of Health Impacting MDM/Planning: Not Applicable Lab Data 02/21/25 14:11 02/21/25 14:11 Labs: Lab Results 02/21/25 Range/Units 14:11 WBC 13.2 H (4.8-10.8) X10*3/uL RBC 4.94 (4.60-5.80) X10*6/uL Hgb 14.9 (14.0-18.0) g/dl Hct 43.6 (42.0-52.0) % MCV 88.3 (80.0-98.0) fL MCH 30.2 (27.0-33.0) pg MCHC 34.2 (31.0-36.0) g/dl RDW 14.6 (11.0-16.0) % Plt Count 447 H (160-400) X10*3/uL MPV 8.4 L (9.4-12.4) fL Immature Gran % (Auto) 0.8 H (0.0-0.4) % Neut % (Auto) 89.0 H (45-73) % Lymph % (Auto) 7.8 L (20-40) % [place] % (Auto) 2.1 (2-11) % Eos % (Auto) 0.0 (0-4) % Baso % (Auto) 0.3 (0-2) % Lymph # (Auto) 1.0 L (1.2-4.9) X10*3/uL [place] # (Auto) 0.3 (0.1-1.2) X10*3/uL Eos # (Auto) 0.0 (0.0-0.4) X10*3/uL Baso # (Auto) 0.0 (0.0-0.2) X10*3/uL Abs Immat Gran (auto) 0.10 H (0.00-0.03) X10*3/uL Absolute Neuts (auto) 11.8 H (2.0-8.3) x10*3/uL Absolute Nucleated RBC 0.000 (0.0-0.012) X10*3/uL Nucleated RBC % (auto) 0.0 (0.0-0.2) /100WBC PT 10.5 L (10.9-12.4) SEC INR 0.9 (0.9-1.1) Sodium 140 (135-145) mmol/L Potassium 3.0 L (3.3-5.1) mmol/L Chloride 99 (96-108) mmol/L Carbon Dioxide 22 (22-29) mmol/L Anion Gap 22 H (12-20) BUN 5 L (9-16) mg/dL Creatinine 0.88 (0.5-1.4) mg/dL Estim Creat Clear Calc 133.7 Estimated GFR > 60 Random Glucose 146 H (60-115) mg/dL Calcium 8.7 (8.4-10.2) mg/dL Magnesium 2.2 (1.6-2.6) mg/dL Total Bilirubin 0.4 (0.0-1.0) mg/dL AST 30 (5-37) U/L ALT 32 (0-40) U/L Alkaline Phosphatase 68 (39-117) U/L Total Creatine Kinase 106 (38-174) U/L Troponin I High Sens < 2.7 (<3.5-35.0) ng/L Total Protein 7.4 (6.5-8.0) g/dL Albumin 4.7 (3.5-5.0) g/dL Ethyl Alcohol 228 mg/dL Critical Care Time Critical Care Time Critical Care Time: Yes Total Critical Care Time: 40 Attestation: ED Critical Care: Authorized and Performed by: Mark Franks MD Total critical care time: Approximately 40 Due to a high probability of clinically significant, life threatening deterioration, the patient required my highest level of preparedness to intervene emergently and I personally spent this critical care time directly and personally managing the patient. This critical care time included obtaining a history; examining the patient; pulse oximetry; ordering and review of studies; arranging urgent treatment with development of a management plan; evaluation of patient's response to treatment; frequent reassessment; and, discussions with other providers. This critical care time was performed to assess and manage the high probability of imminent, life-threatening deterioration that could result in multi-organ failure. It was exclusive of separately billable procedures and treating other patients and teaching time. Discharge Plan Discharge Clinical Impression: Hypokalemia, Alcohol use disorder, severe, dependence Patient Disposition: Admitted As Inpatient Interventions: Admission Worksheet (ED) Last Done: 02/21/25 19:44 Discharge Date/Time: 02/21/25 20:56
--- NOTE | 2025-02-21 14:00 | PC.NURSE ---
States that last drink was about 6 hours ago a whole bottle of Wilberto Fair[place] . States I'm starting to see the elephants again . Agitated, anxious, tachycardia, tachypnic, diaphoretic. Was here yesterday for similar complaint. Sinus tachycardia 120-130s on monitor. BP 186/166, now 137/110. Dr. Campos aware.
[2025-02-21] MEDS: LORazepam 2 MG/ML VIAL IVPUSH (14:03)
--- OUTSIDE RECORDS SUMMARY | 2025-02-21 14:12 | XMS_ITS | Clinical Summary ---
Author Organization [facility] Address [address] [place] [id number] Phone Care Team Providers Care Hitch Technician Name Role Phone Wali Long NP Primary Care Provider + Allergies Active Allergy Reactions Criticality Noted Date Comments Bee Venom Protein (Honey Bee) High 2019 Medications escitalopram oxalate (LEXAPRO) 20 MG tablet Take 20 mg by mouth daily. Active naproxen sodium (ALEVE) 220 MG tabletIndicatio ns:pain Take 880 mg by mouth every 12 (twelve) hours as needed for pain (specific location in comments) or headache (eye pain). Indications: pain Active Active Problems No known active problems Social History Tobacco Use Types Packs/Day Years Used Date Smoking Tobacco: Never Smokeless Tobacco: Never Alcohol Use Standard Drinks/Week Comments Yes 0 (1 standard drink = 0.6 oz pur e alcohol) social Education Answer Date Recorded Are you interested in more education? Not on karina e 12/02/2022 Are you concerned about learning? Not on file 12/02/2022 No 12/02/2022 No 12/02/2022 Digital Access Answer Date Recorded No 12/30/2022 No 12/30/2022 No 12/30/2022 Reliable internet access at home? Not on file 12/30/2022 Device with a working camera? Not on file Sex and Gender Information Value Date Recorded Sex Assigned at Male 09/27/2019 2:29 PM EST Legal Sex Male 8:59 PM EDT Gender Identity Male 09/27/2019 2:29 PM EST Sexual Orientation Straight 09/27/2019 2: 29 PM EST Last Filed Vital Signs Vital Sign Reading Time Taken Comments Blood Pressure 121/72 09/30/2019 9:59 AM EST Pulse 62 09/30/2019 8:57 AM EST Temperature 36.3 C (97.4 F) 09/27/2019 2:52 PM EST Respiratory Rate 18 09/30/2019 9:59 AM EST Oxygen Saturation 99% 09/30/2019 9:59 AM EST Inhaled Oxygen Concentration - - Weight 87.5 kg (193 lb) 09/30/2019 8:57 AM EST Height 170.2 cm (5' 7 ) 09/30/2019 8:57 AM EST Body Mass Index 30.23 09/30/2019 8:57 AM EST Plan of Treatment Health Maintenance Due Date Last Done Comments Adult Td,Tdap Booster 1991 DEPRESSION SCREENING 2003 HEPATITIS C SCREENING 12/19/2009 HIV ONE-TIME SCREENING (18-6 5 YEARS) 12/19/2009 COVID-19 VACCINE (2023-2 5 season) 2024 SMOKING STATUS SCREENING (On ce After 26 Yrs) Completed 01/09/2021 HEPATITIS A VACCINES Aged Out No long er eligible based on patient's age to complete this topic HIB VACCINES Aged Out No longer eligi ble based on patient's age to complete this topic MENINGOCOCCAL VACCINES (ACWY) Aged Out No longer eligible based on patient's age to complete this topic MENINGOCOCCAL VACCINES (B) Aged Out N o longer eligible based on patient's age to complete this topic PNEUMOCOCCAL VACCINES (0-49 years) Aged Out No longer eligible based on patient's age to complete this topic Medical Devices Not on file Insurance [facility] [employer] NET PARTIAL [employer] NET PARTIAL [employer] NET PARTIAL Member Subscriber Plan / Payer (Ef fective 2021-Present) Name:Jack Burns Relation to Subscriber:Self Name:GrantJack amin Payer ID:Not on file Group ID:Not on file Type:Medicaid Address: [place] [id number] [employer] [facility] SAFETY NET PARTIAL Member Subscriber Plan / Payer (Ef fective 2021-Present) Name:Grant Jack Relation to Subscriber:Self Name:GrantJack Payer ID:Not on file Group ID:Not on file Type:Medicaid Address: [place] [id number] [employer] [facility] SAFETY NET PARTIAL [employer] DIRECT [facility] SAFETY NET PARTIAL [place] [employer] [place] [address] [facility] [employer]CARE DIRECT [facility] SAFET[facility] NET PARTIAL [facility] DIRECT [place] [phone] [facility] SAFETY NET PARTIAL Care Teams Hitch Technician Relationship Specialty Start Date End Date Wali Long NP [address] [place] [id number] [email or web address] PCP - General Family Medicine 11/11/21 Additional Source Comments The information contained in this document represents components of the legal health record. It is not the complete legal health record.[facility]
[2025-02-21 14:17] LABS: MANUAL DIFF FLAG NO
[2025-02-21] MEDS: diazePAM 10 MG/2 ML CARTRIDGE IVPUSH ×3 (14:18→19:30)
[2025-02-21 14:19] LABS: Hematocrit 43.6 % (42.0-52.0); Hemoglobin 14.9 g/dl (14.0-18.0); Imm Gran Abs Auto 0.10 X10*3/uL (0.00-0.03); Imm Gran Pct Auto 0.8 % (0.0-0.4); Lymphocytes Absolute Auto 1.0 X10*3/uL (1.2-4.9); Mean Corpuscular HGB Conc 34.2 g/dl (31.0-36.0); Mean Corpuscular Hemoglobin 30.2 pg (27.0-33.0); Mean Corpuscular Volume 88.3 fL (80.0-98.0); NRBC Abs Auto 0.000 X10*3/uL (0.0-0.012); NRBC Pct Auto 0.0 /100WBC (0.0-0.2); Platelet Count 447 X10*3/uL (160-400); Red Blood Count 4.94 X10*6/uL (4.60-5.80); White Blood Count 13.2 X10*3/uL (4.8-10.8)
[2025-02-21 14:23] LABS: INTERNATIONAL NORM RATIO 0.9 (0.9-1.1); Prothrombin Time 10.5 SEC (10.9-12.4)
--- NOTE | 2025-02-21 14:29 | PC.NURSE ---
Pt reports hx seizures related to withdrawal, was here recently for withdrawal. Pt endores seeing elephants and dark shadow people/shapes that he knows aren't there. Pt anxious related to seeing things, also afraid he is going to have another seizure. MD Hardin made aware.
[2025-02-21 14:40] LABS: Alanine Aminotransferase 32 U/L (0-40); Albumin Level 4.7 g/dL (3.5-5.0); Alkaline Phosphatase 68 U/L (39-117); Anion Gap 22 (12-20); Aspartate Amino Transferase 30 U/L (5-37); Blood Urea Nitrogen 5 mg/dL (9-16); Calcium 8.7 mg/dL (8.4-10.2); Carbon Dioxide 22 mmol/L (22-29); Chloride 99 mmol/L (96-108); Creatinine Clr Calc Pharmacy 133.7; Estimated Glomerular Filt Rate > 60; Potassium 3.0 mmol/L (3.3-5.1); Sodium 140 mmol/L (135-145); Total Protein 7.4 g/dL (6.5-8.0)
[2025-02-21] MEDS: Lactated Ringers 1,000 ML 999 ML IV (14:42)
[2025-02-21 14:47] LABS: Troponin-I High Sensitivity < 2.7 ng/L (<3.5-35.0)
--- NOTE | 2025-02-21 15:19 | PM.IMHP ---
History of Present Illness Date of Service: 02/21/25 Chief Complaint: Alcohol withdrawal This is a 34-year-old male with pertinent history of alcohol use disorder, chronic pericarditis who presents to the emergency department for concerns of alcohol withdrawal and chest pain. Patient states his last drink was on the morning of presentation. Since he stopped drinking, he has been having tremors and anxiety. Also reports visual hallucinations. This has happened before. He does have history of alcohol withdrawal including alcohol withdrawal seizures. Patient states he needs help and is willing for detox. States he also has midsternal chest discomfort which is constant, worse with inspiration, does not relieve with rest and does not exacerbate with exertion. No fever, chills, palpitations, abdominal pain, changes in urinary or bowel habits. In the emergency department, patient was initiated on phenobarb protocol and given IV thiamine. Review of Systems Constitutional: Constitutional: Reports no additional constitutional complaints Cardiovascular: Cardiovascular: Reports chest pain Respiratory: Respiratory: Reports no additional respiratory complaints Gastrointestinal: Gastrointestinal: Reports no additional gastrointestinal complaints Genitourinary: Genitourinary: Reports no additional male genitourinary complaints Psychiatric: Psychiatric: Reports visual hallucinations PMFSH Medical History Pericardial effusion Alcohol use disorder, moderate, dependence MDD (major depressive disorder), recurrent episode, moderate Nausea with vomiting Alcohol use disorder Anxiety and depression History of seizure due to alcohol withdrawal ETOH abuse Family History Other Diabetes Social History Household Members: Family Housing: Apartment Do you presently have visiting nurse or other home services: No Alcohol intake: current Alcohol intake frequency: 3 or more drinks per day Alcohol type: beer Patient Tobacco Use Status: Former Tobacco user Tobacco use type: Cigarette e-Cigarette/Vaping Use: Never Used Second Hand Smoke Exposure: No Substance Use Type: Crack/Cocaine Advance Directives: Yes Advance Directives on File: Yes Advance Directives Date on File: 11/07/22 service: No (PATIENT ASLEEP AND NOT EASILY AROUSEDFOR ASSESSMENTCONVERSATION) Current occupational status: employed Meds Allergies Allergy/AdvReac Type Severity Reaction Status Date / Time No Known Allergies Allergy Verified 02/21/25 13:56 Active Medications: Current Medications Lactated Ringer's (Lr) 1,000 mls @ 999 mls/hr IV .Q1H1M EL Stop: 02/21/25 15:30 Last Admin: 02/21/25 14:42 Dose: 999 mls/hr Pharmacy Consult (Consult Rx Etoh Phenob Im/Po) 1 each MISCELLANE ONCE PRN; Protocol PRN Reason: Consult order Phenobarbital (Phenobarbital 15 Mg Tablet) 45 mg PO BID EL Stop: 02/23/25 09:01 Phenobarbital (Phenobarbital 30 Mg Tablet) 30 mg PO BID EL Stop: 02/25/25 09:01 Phenobarbital (Phenobarbital 30 Mg Tablet) 30 mg PO BEDTIME EL Stop: 02/26/25 21:01 Phenobarbital Sodium (Phenobarbital Sodium 130 Mg/Ml Im Once) 274 mg IM ONCE ONE Stop: 02/21/25 15:31 Phenobarbital Sodium (Phenobarbital Sodium 130 Mg/Ml Vial Im Q3hx2) 205 mg IM Q3H EL Stop: 02/21/25 21:31 Home Medications ?Medication ?Instructions ?Recorded ?Confirmed ?Last Taken ?Type prednisone 10 mg tablet See Taper PO DAILY 12/28/24 02/21/25 02/21/25 History prednisone 1 mg tablet See Taper PO DAILY 02/21/25 02/21/25 02/21/25 History thiamine HCl (vitamin B1) 100 mg 100 mg PO DAILY 02/21/25 02/21/25 02/21/25 History tablet (Vitamin B-1) Physical Exam Vital Signs and Narrative: Vital Signs: Last Vital Signs Temp 98.2 F 02/21/25 13:51 Pulse 108 H 02/21/25 14:19 Resp 19 02/21/25 14:19 BP 128/92 H 02/21/25 14:19 Pulse Ox 98 02/21/25 14:19 O2 Del Method Room Air 02/21/25 14:19 BMI result Body Mass Index 32.0 Middle-aged male lying in bed in mild distress Neck supple, no JVD Tachycardic with regular rhythm, S1-S2 heard Regular breath sounds bilaterally, no wheezing or crackles appreciated Abdomen soft nontender, no guarding, no rigidity Patient is awake, alert and oriented to self, place, time and person ; no focal motor deficit Psych: Anxious No pedal edema Results Labs 02/21/25 14:11 02/21/25 14:11 Labs: Laboratory Results - last 24 hr 02/21/25 14:11 MCV 88.3 MCH 30.2 MCHC 34.2 RDW 14.6 Plt Count 447 H MPV 8.4 L Immature Gran % (Auto) 0.8 H Neut % (Auto) 89.0 H Lymph % (Auto) 7.8 L [place] % (Auto) 2.1 Eos % (Auto) 0.0 Baso % (Auto) 0.3 Lymph # (Auto) 1.0 L [place] # (Auto) 0.3 Eos # (Auto) 0.0 Baso # (Auto) 0.0 Abs Immat Gran (auto) 0.10 H Absolute Neuts (auto) 11.8 H Absolute Nucleated RBC 0.000 Nucleated RBC % (auto) 0.0 PT 10.5 L INR 0.9 Anion Gap 22 H Estim Creat Clear Calc 133.7 Estimated GFR > 60 Random Glucose 146 H Calcium 8.7 Total Bilirubin 0.4 AST 30 ALT 32 Alkaline Phosphatase 68 Total Protein 7.4 Albumin 4.7 Ethyl Alcohol 228 Assessment and Plan (1) Alcohol withdrawal syndrome: Qualifiers: Complication of substance-induced condition: uncomplicated Qualified Code(s): F10.930 - Alcohol use, unspecified with withdrawal, uncomplicated Status: Acute (2) Pericarditis: Qualifiers: Chronicity: acute Pericarditis type: unspecified type Qualified Code(s): I30.9 - Acute pericarditis, unspecified Status: Acute Plan This is a 34-year-old male with pertinent history of alcohol use disorder, chronic pericarditis who presents to the emergency department for concerns of alcohol withdrawal and chest pain. #. Alcohol use disorder with concerns of withdrawal: Will admit patient with phenobarb protocol. Monitor CIWA. Continue thiamine. Consulted Addiction Team #. Chest pain due to pericarditis: Patient noncompliant with medications. Continue prednisone and colchicine #. Hypokalemia: Repleting Med rec pending DVT prophylaxis: Lovenox Full code Admit as inpatient and will require two night minimum hospital stay for (as above), which is not possible in a lesser acute setting. Quality Stroke Does the patient have a stroke diagnosis?: No VTE Prior VTE?: No VTE Risk Level:: Medical - moderate - high VTE Device Contraindication: Treatment Not Indicated VTE Drug Contraindication: N/A - Med Ordered
--- NOTE | 2025-02-21 15:27 | PC.NURSE ---
Patient given emesis bag. Vomiting. Dr. Prescott aware & arrived to bedside. Awaiting admission bed assignment.
[2025-02-21 15:38] LABS: Magnesium 2.2 mg/dL (1.6-2.6)
[2025-02-21] MEDS: PHENobarbitaL sodium 130 MG/ML IM ONCE 274 MG IM (15:42)
--- NOTE | 2025-02-21 15:49 | PHA.MEDREC ---
Addendum entered by Marcos Thompson RPh 02/21/25 15:58: Reviewed by [facility] ED Original Note: Pharmacy Consult ? Medication Reconciliation Pharmacy has completed the medication reconciliation. Spoke to patient to confirm med list. Patient was able to name all of his medication. Patient confirmed he takes Prednisone taper dose 35 mg daily for 14 days ( Prednisone 10 mg (3x 10 mg) with Prednisone 5 mg ( 5x 1 mg) for a total dose =35 mg) then Prednisione 34 mg daily for 14 days( Prednisone 10 mg (3x 10 mg) with Prednisone 5 mg (4x 1 mg) for a total dose =34 mg) then patient clinic will taper. Patient last had his medications today.
[2025-02-21] MEDS: Potassium Chloride/H20 10 MEQ/100 ML PIGGYBACK 100 MEQ IV ×4 (16:56→20:43)
[2025-02-21] MEDS: 0.9 % Sodium Chloride Flush 3 ML SYRINGE IVFLUSH (16:56)
[2025-02-21] MEDS: Potassium Chloride Packet 20 MEQ PACKET 40 MEQ PO (16:56)
[2025-02-21 17:57] LABS: Appearance Urine Clear; Glucose Urine UA Negative (Negative); PH 8.0 (5.0-9.0); Specific Gravity - Urine <= 1.005 (1.005-1.025)
[2025-02-21 18:05] LABS: Cannabinoid Screen Urine Not Detected (Not Detect)
[2025-02-21] MEDS: PHENobarbitaL sodium 130 MG/ML VIAL IM Q3Hx2 205 MG IM ×2 (18:29→21:17)
--- NOTE | 2025-02-21 19:50 | PC.NURSE ---
Delayed note by this RN: Patient arrived by EMS earlier today with c/o chest pain and visual hallucinations. Admitted to drinking 1 large bottle of Wilberto [place] 6 hours prior to arrival. ETOH 220s upon arrival. Hx ETOH withdrawal. CIWA has ranged from 10-26 (see documentation) throughout stay in ED. Pt is alert/oriented at this time. Recently seen at [facility] for withdrawal. Has received multiple doses of Valium, Ativan, Morphine, Zofran, IVF, Potassium (d/t hypokalemia 3.0). Experienced episode of sharp, sudden onset right calf cramping/pain like a linus horse , hard to touch. Dr. Prescott aware and ordered U/S to r/o DVT, but likely related to hypokalemia. Sinus tachycardia 110s-120s. Has episodes of worsening tachycardia with acute pain, as high as 150s/160s. Reports some pain relief when laying on right side. IV access to right AC. Potassium (3rd bag) currently infusing as ordered, needs 1 more bag per orders. Hx seizures d/t withdrawal in the past. Interested in ETOH abuse treatment program. Voided 1200mL urine earlier today in urinal.
--- NOTE | 2025-02-21 20:20 | PC.NURSE ---
New IV access (18g to Left AC) established by this RN. Previous IV access extravasation noted and removed. Medications resumed via new IV access.
[2025-02-22] MEDS: 0.9 % Sodium Chloride Flush 3 ML SYRINGE IVFLUSH
[2025-02-22 03:10] VITALS: BP 139/88; PULSE 90; RESP 18; TEMP 37.2; O2SAT 98
--- NOTE | 2025-02-22 04:53 | P.EN_ITS ---
Event Note Date of Service: 02/22/25 Event Note: Against medical advice note: Patient mentioned that he feels better now, no symptoms, no chest pain, no withdrawal symptoms. Mentions he has to leave the hospital because if he waits any longer he might lose his job and he can not afford to lose his job at this time. 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 Explained to the patient about the risks involved in leaving against medical advice which not only include worsening current health condition note made even lead to -patient verbalized that he understood the risk and he still wants to leave against medical advice. Patient signed AMA form. Time Spent With Patient Time: Total time managing care of this patient today ____ minutes.
--- NOTE | 2025-02-22 07:02 | P.DS_ITS ---
DS: Providers Provider Date of Service: 02/22/25 Date of admission: 02/21/25 15:18 Date of discharge: 02/22/25 Primary care physician: Unknown Physician Consults: 02/21/25 15:49 Addiction Medicine Provider Routine Consulting Provider: Addiction Covering Reason for consultation: Alcohol use disorder DS: Diagnosis Discharge Diagnosis (1) Alcohol withdrawal syndrome: Status: Acute (2) Pericarditis: Status: Acute DS: Summary Hospital Course Hospital Course: HPI: This is a 34-year-old male with pertinent history of alcohol use disorder, chronic pericarditis who presents to the emergency department for concerns of alcohol withdrawal and chest pain. Patient states his last drink was on the morning of presentation. Since he stopped drinking, he has been having tremors and anxiety. Also reports visual hallucinations. This has happened before. He does have history of alcohol withdrawal including alcohol withdrawal seizures. Patient states he needs help and is willing for detox. States he also has midsternal chest discomfort which is constant, worse with inspiration, does not relieve with rest and does not exacerbate with exertion. No fever, chills, palpitations, abdominal pain, changes in urinary or bowel habits. In the emergency department, patient was initiated on phenobarb protocol and given IV thiamine. Hospital course: Patient was admitted with phenobarb protocol for alcohol withdrawal and resumed on prednisone and colchicine for chest pain due to pericarditis. Unfortunately patient left against medical advice within 24 hours of admission. As per assistive technology trainer Against medical advice note: Patient mentioned that he feels better now, no symptoms, no chest pain, no withdrawal symptoms. Mentions he has to leave the hospital because if he waits any longer he might lose his job and he can not afford to lose his job at this time. 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 Explained to the patient about the risks involved in leaving against medical advice which not only include worsening current health condition note made even lead to -patient verbalized that he understood the risk and he still wants to leave against medical advice. Patient signed AMA form Status at Discharge Functional status at discharge: independent ambulation Overall status at discharge: patient is progressing back to baseline Time Attestation Discharge Coordination Time (in mins): 20min Quality: Safe Use of Opioids Does Pt have an Active Cancer Diagnosis on the Problem List?: No Quality: Stroke Does the patient have a stroke diagnosis?: No Physical Exam Exam: Exam: Middle-aged male lying in bed in mild distress Neck supple, no JVD Tachycardic with regular rhythm, S1-S2 heard Regular breath sounds bilaterally, no wheezing or crackles appreciated Abdomen soft nontender, no guarding, no rigidity Patient is awake, alert and oriented to self, place, time and person ; no focal motor deficit Psych: Anxious No pedal edema Vital Signs: Vital Signs: Last Vital Signs Temp 98.9 F 02/22/25 03:10 Pulse 90 02/22/25 03:10 Resp 18 02/22/25 03:10 BP 139/88 02/22/25 03:10 Pulse Ox 98 02/22/25 03:10 O2 Del Method Room Air 02/22/25 03:10 BMI result Body Mass Index 30.1 DS: Data Data Completed and Pending Completed studies during hospitalization [Text1]: Procedures Detoxification Services for Substance Abuse Treatment (05/09/23) Labs on day of discharge: Laboratory Results - last 24 hr 02/21/25 02/21/25 14:11 17:43 WBC 13.2 H RBC 4.94 Hgb 14.9 Hct 43.6 MCV 88.3 MCH 30.2 MCHC 34.2 RDW 14.6 Plt Count 447 H MPV 8.4 L Immature Gran % (Auto) 0.8 H Neut % (Auto) 89.0 H Lymph % (Auto) 7.8 L [place] % (Auto) 2.1 Eos % (Auto) 0.0 Baso % (Auto) 0.3 Lymph # (Auto) 1.0 L [place] # (Auto) 0.3 Eos # (Auto) 0.0 Baso # (Auto) 0.0 Abs Immat Gran (auto) 0.10 H Absolute Neuts (auto) 11.8 H Absolute Nucleated RBC 0.000 Nucleated RBC % (auto) 0.0 PT 10.5 L INR 0.9 Sodium 140 Potassium 3.0 L Chloride 99 Carbon Dioxide 22 Anion Gap 22 H BUN 5 L Creatinine 0.88 Estim Creat Clear Calc 133.7 Estimated GFR > 60 Random Glucose 146 H Calcium 8.7 Magnesium 2.2 Total Bilirubin 0.4 AST 30 ALT 32 Alkaline Phosphatase 68 Total Creatine Kinase 106 Troponin I High Sens < 2.7 Total Protein 7.4 Albumin 4.7 Urine Color Yellow Urine Appearance Clear Urine pH 8.0 Ur Specific Petroleum <= 1.005 Urine Protein Negative Urine Glucose (UA) Negative Urine Ketones Negative Urine Blood Negative Urine Nitrite Negative Ur Leukocyte Esterase Negative Urine Opiates Screen Not Detected Ur Buprenorphine Scrn Not Detected Ur Oxycodone Screen Not Detected Urine Methadone Screen Not Detected Urine Fentanyl Screen Not Detected Ur Barbiturates Screen POSITIVE H Ur Phencyclidine Scrn Not Detected Ur Amphetamines Screen Not Detected U Benzodiazepines Scrn POSITIVE H Urine Cocaine Screen Not Detected U Marijuana (THC) Screen Not Detected Ethyl Alcohol 228 Imaging Chest x-ray: Radiologist's impression: ITS Impressions Chest X-Ray 02/21/25 15:34 IMPRESSION: No acute change Electronically signed by: Edi Correa MD 02/21/2025 03:57 PM EDT RP Discharge Plan Discharge Patient Disposition: Left Against Medical Advice Discharge Diagnosis: Alcohol use disorder with concerns for withdrawal Referrals: Physician,Unknown J [Primary Care Provider, Medical] - 1 Week Discharge Medications: No Action colchicine 0.6 mg tablet 0.6 mg PO BID 28 Days Qty: 56 0RF prednisone 10 mg tablet See Taper PO DAILY Taper: Prednisone 30 mg daily for 14 Days and 0 Hour 30 mg daily for 14 Days and 0 Hour Rx Instructions: Take with 5 mg (5x 1 mg tablets) for a total dose =35 mg for 14 days then 34 mg for 14 days then clinic will taper. prednisone 1 mg Tablet See Taper PO DAILY Taper: Prednisone 5 mg daily for 14 Days and 0 Hour 4 mg daily for 14 Days and 0 Hour Rx Instructions: Take with 30 mg tablet for a total dose =35 mg for 14 days then 34 mg for 14 days then clinic will taper. thiamine HCl (vitamin B1) [Vitamin B-1] 100 mg Tablet 100 mg PO DAILY Discharge Orders: Discharge Order (Routine); Ordered 02/22/25 Ordered By: Mo Prescott Diet: Advance to usual diet Print Language: Emirati Care Plan Goals: Follow-up with PCP and truck mechanic apprentice within 1 week Repeat BMP Compliance with p.o. medications including prednisone and colchicine Health Concerns: Alcohol use disorder Chronic pericarditis Plan of Treatment: As above Assessment: As above Discharge Date/Time: 02/22/25 05:17
--- NOTE | 2025-02-22 08:33 | MHC.CM.PN ---
Pt left AMA prior to being seen by this CM.
== END 2025-02-22 05:17 | disposition left against medical advice (07) | DRG 207 ==
LOC: HO.ED 15:08 → HO.EDOVER 15:26 → HO.S3 19:04 → HO.IMC 19:44
PROVIDERS: Admitting Provider Student in an Organized Health Care Education/Training Program; Emergency Provider Emergency Medicine; Visit Provider Student in an Organized Health Care Education/Training Program
DX: I31.9 Disease of pericardium, unspecified (principal); E87.6 Hypokalemia; Y90.7 Blood alcohol level of 200-239 mg/100 ml; F10.20 Alcohol dependence, uncomplicated; Z91.148 Patient's other noncompliance with medication regimen for other reason; Z87.891 Personal history of nicotine dependence; Z79.899 Other long term (current) drug therapy
CPT/HCPCS: 36415; 71045; 80053; 80307; 81003; 82550; 83735; 84484; 85025; 85610; 93005; 93971; 99285; J1650; J2060; J2270; J2405; J2470; J2560; J3360; J3411; J3480; J7120

== ENCOUNTER → 2025-02-21 13:54 | Outpatient (BNV) | payer OTHER, SELFPAY | PROVIDERS: Admitting Provider Student in an Organized Health Care Education/Training Program; Emergency Provider Emergency Medicine; Visit Provider Internal Medicine | DX: R00.0 Tachycardia, unspecified (principal) | CPT/HCPCS: 93010 ==

== ENCOUNTER 2025-02-21 15:18 | Outpatient (BNV) | payer OTHER, SELFPAY | END 2025-02-21 15:34 | PROVIDERS: Admitting Provider Student in an Organized Health Care Education/Training Program; Emergency Provider Emergency Medicine; Visit Provider Radiology Diagnostic Radiology | DX: R22.41 Localized swelling, mass and lump, right lower limb (principal); R07.9 Chest pain, unspecified | CPT/HCPCS: 71045; 93971 ==

== ENCOUNTER → 2025-02-21 15:18 | Outpatient (BNV) | payer OTHER, SELFPAY | PROVIDERS: Admitting Provider Student in an Organized Health Care Education/Training Program; Emergency Provider Emergency Medicine; Visit Provider Student in an Organized Health Care Education/Training Program | DX: F10.930 Alcohol use, unspecified with withdrawal, uncomplicated (principal); I30.9 Acute pericarditis, unspecified | CPT/HCPCS: 99222; 99238; 99499 ==

== ENCOUNTER → 2025-03-03 16:24 | Outpatient (BNV) | payer OTHER, SELFPAY | PROVIDERS: Emergency Provider Emergency Medicine; Visit Provider Student in an Organized Health Care Education/Training Program | DX: F10.930 Alcohol use, unspecified with withdrawal, uncomplicated (principal) | CPT/HCPCS: 99222; 99233 ==

== ENCOUNTER 2025-03-03 16:29 | Inpatient (IN) | payer OTHER, SELFPAY ==
--- NOTE | ~2025-03-03 | XR_ITS ---
CLINICAL HISTORY: bradycardia --- Additional Notes or Special Instructions: Pt wants pain meds before CXR, nurse is aware and said to check back in an hour - AMS @ 1707 1 view chest x-ray. Comparison: Chest x-ray 02/21/2025. CT 02/10/2025 Findings: Mediastinal contour is normal. Heart size normal. Pulmonary vasculature is within normal limits. Mild infrahilar density due to crowding of blood vessels from incomplete inspiration. No pneumothorax. No acute fracture. Impression: No consolidations. The lungs are clear. This document has been electronically signed by: Luciano Trammell MD on 03/03/2025 18:14:00
[2025-03-03 16:37] VITALS: BP 160/115; PULSE 134; O2SAT 98
--- NOTE | 2025-03-03 16:37 | ECG_ITS ---
Test Reason : cp Blood Pressure : */* mmHG Vent. Rate : 127 BPM Atrial Rate : 127 BPM P-R Int : 144 ms QRS Dur : 74 ms QT Int : 296 ms P-R-T Axes : 51 56 70 degrees QTcB Int : 430 ms Sinus tachycardia Otherwise normal ECG When compared with ECG of 21-Feb-2025 13:54, No significant change was found Referred By: Generic ED Physician Electronically Signed By: CHAO RUIZ MD
[2025-03-03 16:39] VITALS: BP 136/89; PULSE 125; RESP 20; TEMP 36.4; BMI 31.2
[2025-03-03 16:55] LABS: MANUAL DIFF FLAG NO
[2025-03-03 16:56] LABS: Hematocrit 43.7 % (42.0-52.0); Hemoglobin 15.1 g/dl (14.0-18.0); Imm Gran Abs Auto 0.08 X10*3/uL (0.00-0.03); Imm Gran Pct Auto 0.5 % (0.0-0.4); Lymphocytes Absolute Auto 2.0 X10*3/uL (1.2-4.9); Mean Corpuscular HGB Conc 34.6 g/dl (31.0-36.0); Mean Corpuscular Hemoglobin 30.1 pg (27.0-33.0); Mean Corpuscular Volume 87.2 fL (80.0-98.0); NRBC Abs Auto 0.000 X10*3/uL (0.0-0.012); NRBC Pct Auto 0.0 /100WBC (0.0-0.2); Platelet Count 499 X10*3/uL (160-400); Red Blood Count 5.01 X10*6/uL (4.60-5.80); White Blood Count 14.6 X10*3/uL (4.8-10.8)
[2025-03-03 17:16] LABS: Anion Gap 23 (12-20); Blood Urea Nitrogen 6 mg/dL (9-16); Calcium 9.5 mg/dL (8.4-10.2); Carbon Dioxide 24 mmol/L (22-29); Chloride 100 mmol/L (96-108); Creatinine Clr Calc Pharmacy 149.0; Estimated Glomerular Filt Rate > 60; Potassium 3.8 mmol/L (3.3-5.1); Sodium 143 mmol/L (135-145)
[2025-03-03 17:25] LABS: Troponin-I High Sensitivity < 2.7 ng/L (<3.5-35.0)
--- NOTE | 2025-03-03 17:26 | ED.CHESTPAIN ---
HPI - Chest Pain General Chief Complaint: Chest Pain Stated Complaint: CHEST PAIN Time Seen by Provider: 03/03/25 17:26 Source: patient and EMS Mode of arrival: ambulatory Limitations: no limitations History of Present Illness ED Provider: HPI narrative: 34-year-old male with history of alcohol use disorder quite severe, drinks daily, recent admission to the hospital at that point he signed out overnight AMA, at this point he states that he continues to drink and he needs help and he is definitely willing to stay, he takes recurrent idiopathic pericarditis and so you take steroids along with drinking beer on daily basis denies any other drug use. She did call EMS, received Zofran, nitro, noted to be sitting up, anxious and retching. Related Data Home Medications ?Medication ?Instructions ?Recorded ?Confirmed prednisone 10 mg tablet See Taper PO DAILY 12/28/24 02/21/25 prednisone 1 mg tablet See Taper PO DAILY 02/21/25 02/21/25 thiamine HCl (vitamin B1) 100 mg 100 mg PO DAILY 02/21/25 02/21/25 tablet (Vitamin B-1) Previous Rx's ?Medication ?Instructions ?Recorded colchicine 0.6 mg tablet 0.6 mg PO BID 4 weeks #56 tabs 05/16/24 Allergies Allergy/AdvReac Type Severity Reaction Status Date / Time No Known Allergies Allergy Verified 03/03/25 16:41 Review of Systems Constitutional: Constitutional: Reports as per [facility] Past Medical History Medical History Pericardial effusion Alcohol use disorder, moderate, dependence MDD (major depressive disorder), recurrent episode, moderate Nausea with vomiting Alcohol use disorder Anxiety and depression History of seizure due to alcohol withdrawal ETOH abuse Family History Family History Other Diabetes Social History Social History Household Members: Spouse and Children Housing: House Do you presently have visiting nurse or other home services: No Alcohol intake: current Alcohol intake frequency: 3 or more drinks per day Alcohol type: beer and hard liquor Patient Tobacco Use Status: Former Tobacco user Tobacco use type: Cigarette e-Cigarette/Vaping Use: Never Used Second Hand Smoke Exposure: No Substance Use Type: Crack/Cocaine Advance Directives Date on File: 11/07/22 Do you have a plan to hurt others: No Plan service: No (PATIENT ASLEEP AND NOT EASILY AROUSEDFOR ASSESSMENTCONVERSATION) Current occupational status: employed Physical Exam Vital Signs: Vital Signs: Last Vital Signs Temp 97.6 F 03/03/25 16:39 Pulse 125 H 03/03/25 16:39 Resp 20 03/03/25 16:39 BP 136/89 03/03/25 16:39 O2 Del Method Room Air 03/03/25 16:39 BMI result Body Mass Index 31.2 Const: Other: ? Gen: Sweaty, and discomfort ? HEENT: Dry oral mucosa, no scleral icterus ? Neck: Supple, no LAD ? CV: RRR, no obvious murmurs appreciated ? Resp: No wheezing rales rhonchi no stridor moving air well ? Abd: Bowel sounds are present, no tenderness no rebound no rigidity ? MSK: FROM, strength 5/5 all extremities ? Skin: No facial bruising, no bruising over the body, no jaundice ? Neuro: Alert and oriented x3, moving upper and lower extremities symmetrically, no obvious facial asymmetry noted, somewhat tremulous Medications Administered Generic Name Dose Route Start Last Admin Trade Name Freq PRN Reason Stop Dose Admin Sodium Chloride 1,000 mls @ 999 mls/hr 03/03/25 18:00 03/03/25 17:52 Ns IV 03/03/25 19:00 999 mls/hr .Q1H1M EL Administration Discontinued Medications Generic Name Dose Route Start Last Admin Trade Name Freq PRN Reason Stop Dose Admin Ondansetron HCl 4 mg 03/03/25 17:49 03/03/25 17:51 Ondansetron Hcl 4 Mg/2 Ml Vial IVPUSH 03/03/25 17:50 4 mg ONCE ONE Administration Medical Decision Making Medical Decision Making [facility] Narrative: Patient had a visit 10 days ago at that point he has had bedside echo without any evidence for pericardial effusion, he does continue taking steroids as well as drinking alcohol on regular basis, presented tachycardic, not hypotensive, somewhat tremulous, generally exam consistent with alcohol withdrawal with likely alcoholic gastritis, he is ECG does not show any evidence for pericarditis such as ST-elevation or electrical alternans to suggest underlying pericardial effusion His vital signs except for tachycardia otherwise reassuring, I think he will do well with phenobarb protocol as he has done in the past, I also spoke to him regarding alcohol use and he states he is really wanting to quit but he has not been able to and he is willing to stay. Differential Diagnosis Differential Diagnoses: The differential diagnosis associated with the presentation includes (Alcohol withdrawal seizures, alcohol withdrawal, delirium, ACS, pericarditis) Admission/Observation Consideration of admission/observation: Escalation of care including admission/observation considered 2022 Emergency Medicine Coding Guide from [employer] on 03/03/2025 All calculations should be rechecked by clinician prior to use RESULT SUMMARY: 5 Estimated Level of Service Problems: High (5) Risk: High (5) Data: Extensive (5) NARRATIVE MDM: This patient's problem complexity is High as patient: with chronic illness(es) with severe exacerbation/progression/side effects. This patient's risk is High due to: overall presentation requiring evaluation for a potentially High-risk process. This patient's data complexity is Extensive due to: -multiple tests ordered/reviewed -independent interpretation of imaging or EKG INPUTS: Number and Complexity ?> 1 = 5: chronic illness w/severe exacerbation (a) Risk level ?> 4 = High Tests ordered ?> 2 = 2 Tests results reviewed (excluding labs) ?> 2 = 2 Prior external notes reviewed ?> 0 = 0 Assessment requiring and independent historian ?> 0 = No Independent interpretation of tests ?> 1 = Yes Discussed management/test interpretation w/external professional ?> 0 = No Lab Data [facility] Lab Attestation statement: I reviewed the patient's lab results. 03/03/25 16:50 03/03/25 16:50 Labs: Lab Results 03/03/25 Range/Units 16:50 WBC 14.6 H (4.8-10.8) X10*3/uL RBC 5.01 (4.60-5.80) X10*6/uL Hgb 15.1 (14.0-18.0) g/dl Hct 43.7 (42.0-52.0) % MCV 87.2 (80.0-98.0) fL MCH 30.1 (27.0-33.0) pg MCHC 34.6 (31.0-36.0) g/dl RDW 14.8 (11.0-16.0) % Plt Count 499 H (160-400) X10*3/uL MPV 8.6 L (9.4-12.4) fL Immature Gran % (Auto) 0.5 H (0.0-0.4) % Neut % (Auto) 80.2 H (45-73) % Lymph % (Auto) 13.5 L (20-40) % [place] % (Auto) 5.5 (2-11) % Eos % (Auto) 0.0 (0-4) % Baso % (Auto) 0.3 (0-2) % Lymph # (Auto) 2.0 (1.2-4.9) X10*3/uL [place] # (Auto) 0.8 (0.1-1.2) X10*3/uL Eos # (Auto) 0.0 (0.0-0.4) X10*3/uL Baso # (Auto) 0.0 (0.0-0.2) X10*3/uL Abs Immat Gran (auto) 0.08 H (0.00-0.03) X10*3/uL Absolute Neuts (auto) 11.7 H (2.0-8.3) x10*3/uL Absolute Nucleated RBC 0.000 (0.0-0.012) X10*3/uL Nucleated RBC % (auto) 0.0 (0.0-0.2) /100WBC Sodium 143 (135-145) mmol/L Potassium 3.8 D (3.3-5.1) mmol/L Chloride 100 (96-108) mmol/L Carbon Dioxide 24 (22-29) mmol/L Anion Gap 23 H (12-20) BUN 6 L (9-16) mg/dL Creatinine 0.78 (0.5-1.4) mg/dL Estim Creat Clear Calc 149.0 Estimated GFR > 60 Random Glucose 137 H (60-115) mg/dL Calcium 9.5 D (8.4-10.2) mg/dL Troponin I High Sens < 2.7 (<3.5-35.0) ng/L Independent Interpretation I performed an independent interpretation of an: EKG (127 beats per minute otherwise normal ECG without dysrhythmia, AV bobo blocks or ST-T changes to suspect underlying ACS, my independent interpretation) Critical Care Time Critical Care Time Total Critical Care Time: 45 Attestation: Time is exclusive of separately billable procedures. Time includes: direct patient care, patient reassessment, coordination of patient care, interpretation of data (laboratory data, pulse oximetry, arterial blood gases and chest xrays), review of patient's medical records, medical consultation and documentation of patient care. Procedures excluded from critical care time: central intravenous line placement and electrocardiography. Discharge Plan Discharge Clinical Impression: Alcohol use disorder, severe, dependence Alcohol withdrawal syndrome Qualifiers: Complication of substance-induced condition: uncomplicated Qualified Code(s): F10.930 - Alcohol use, unspecified with withdrawal, uncomplicated Prescriptions: No Action colchicine 0.6 mg tablet 0.6 mg PO BID 28 Days Qty: 56 0RF prednisone 10 mg tablet See Taper PO DAILY Taper: Prednisone 30 mg daily for 14 Days and 0 Hour 30 mg daily for 14 Days and 0 Hour Rx Instructions: Take with 5 mg (5x 1 mg tablets) for a total dose =35 mg for 14 days then 34 mg for 14 days then clinic will taper. prednisone 1 mg Tablet See Taper PO DAILY Taper: Prednisone 5 mg daily for 14 Days and 0 Hour 4 mg daily for 14 Days and 0 Hour Rx Instructions: Take with 30 mg tablet for a total dose =35 mg for 14 days then 34 mg for 14 days then clinic will taper. thiamine HCl (vitamin B1) [Vitamin B-1] 100 mg Tablet 100 mg PO DAILY Print Language: Moroccan
[2025-03-03] MEDS: PHENobarbitaL sodium 130 MG/ML IM ONCE 275 MG IM (18:13)
--- NOTE | 2025-03-03 18:27 | P.HPHOSP_ITS ---
History of Present Illness Date of Service: 03/03/25 Chief Complaint: Alcohol withdrawal This is a 34-year-old male with pertinent history of alcohol use disorder, chronic pericarditis who presents to the emergency department for concerns of alcohol withdrawal and chest pain. Patient states his last drink was on the morning of presentation. Patient recently lost his job and has been drinking as it is the only thing that helps. Since he stopped drinking, he has been having tremors and anxiety. He does have history of alcohol withdrawal including alcohol withdrawal seizures. Patient states he needs help and is willing for detox. States he also has midsternal chest discomfort which is constant, worse with inspiration, does not relieve with rest and does not exacerbate with exertion. No fever, chills, palpitations, abdominal pain, changes in urinary or bowel habits. Of note, patient was recently admitted for alcohol withdrawal but left AMA. In the emergency department, patient was initiated on phenobarb protocol Review of Systems 2 Constitutional: Constitutional: Reports fatigue and Reports malaise Cardiovascular: Cardiovascular: Reports chest pain Respiratory: Respiratory: Reports no additional respiratory complaints Gastrointestinal: Gastrointestinal: Reports abdominal pain Musculoskeletal: Musculoskeletal: Reports no additional musculoskeletal complaints Endocrine: Endocrine: Reports fatigue PMFSH Medical History Pericardial effusion Alcohol use disorder, moderate, dependence MDD (major depressive disorder), recurrent episode, moderate Nausea with vomiting Alcohol use disorder Anxiety and depression History of seizure due to alcohol withdrawal ETOH abuse Family History Other Diabetes Social History Household Members: Spouse and Children Housing: House Do you presently have visiting nurse or other home services: No Alcohol intake: current Alcohol intake frequency: 3 or more drinks per day Alcohol type: hard liquor Patient Tobacco Use Status: Former Tobacco user Tobacco use type: Cigarette Smoked in Last 30 Days: No e-Cigarette/Vaping Use: Never Used Second Hand Smoke Exposure: No Use of substances other than those prescribed or required for medical reasons: No Substance Use Type: Crack/Cocaine Advance Directives Date on File: 11/07/22 Do you have a plan to hurt others: No Plan service: No (PATIENT ASLEEP AND NOT EASILY AROUSEDFOR ASSESSMENTCONVERSATION) Current occupational status: employed Meds Allergies Allergy/AdvReac Type Severity Reaction Status Date / Time No Known Allergies Allergy Verified 03/03/25 16:41 Active Medications: Current Medications Sodium Chloride (Ns) 1,000 mls @ 999 mls/hr IV .Q1H1M EL Stop: 03/03/25 19:00 Last Admin: 03/03/25 17:52 Dose: 999 mls/hr Pharmacy Consult (Consult Rx Etoh Phenob Im/Po) 1 each MISCELLANE ONCE PRN; Protocol PRN Reason: Consult order Phenobarbital (Phenobarbital 15 Mg Tablet) 45 mg PO BID EL; Protocol Stop: 03/05/25 21:01 Phenobarbital (Phenobarbital 30 Mg Tablet) 30 mg PO BID EL; Protocol Stop: 03/07/25 21:01 Phenobarbital (Phenobarbital 30 Mg Tablet) 30 mg PO DAILY EL; Protocol Stop: 03/09/25 09:01 Phenobarbital Sodium (Phenobarbital Sodium 130 Mg/Ml Vial Im Q3hx2) 205 mg IM Q3H EL; Protocol Stop: 03/04/25 00:01 Home Medications ?Medication ?Instructions ?Recorded ?Confirmed ?Last Taken ?Type prednisone 10 mg tablet See Taper PO DAILY 12/28/24 02/21/25 02/21/25 History prednisone 1 mg tablet See Taper PO DAILY 02/21/25 02/21/25 02/21/25 History thiamine HCl (vitamin B1) 100 mg 100 mg PO DAILY 02/2102/21/25 02/21/25 History tablet (Vitamin B-1) Physical Exam 2 Vital Signs and Narrative: Vital Signs: Last Vital Signs Temp 97.6 F 03/03/25 16:39 Pulse 125 H 03/03/25 16:39 Resp 20 03/03/25 16:39 BP 136/89 03/03/25 16:39 O2 Del Method Room Air 03/03/25 16:39 BMI result Body Mass Index 31.2 Middle-aged male lying in bed in mild distress Neck supple, no JVD Tachycardic with regular rhythm, S1-S2 heard Regular breath sounds bilaterally, no wheezing or crackles appreciated Abdomen soft nontender, no guarding, no rigidity Patient is awake, alert and oriented to self, place, time and person ; no focal motor deficit Psych: Anxious No pedal edema Results Labs 03/03/25 16:50 03/03/25 16:50 Labs: Laboratory Results - last 24 hr 03/03/25 16:50 MCV 87.2 MCH 30.1 MCHC 34.6 RDW 14.8 Plt Count 499 H MPV 8.6 L Immature Gran % (Auto) 0.5 H Neut % (Auto) 80.2 H Lymph % (Auto) 13.5 L [place] % (Auto) 5.5 Eos % (Auto) 0.0 Baso % (Auto) 0.3 Lymph # (Auto) 2.0 [place] # (Auto) 0.8 Eos # (Auto) 0.0 Baso # (Auto) 0.0 Abs Immat Gran (auto) 0.08 H Absolute Neuts (auto) 11.7 H Absolute Nucleated RBC 0.000 Nucleated RBC % (auto) 0.0 Anion Gap 23 H Estim Creat Clear Calc 149.0 Estimated GFR > 60 Random Glucose 137 H Calcium 9.5 D Assessment and Plan (1) Alcohol withdrawal syndrome: Qualifiers: Complication of substance-induced condition: uncomplicated Qualified Code(s): F10.930 - Alcohol use, unspecified with withdrawal, uncomplicated Status: Acute Plan This is a 34-year-old male with pertinent history of alcohol use disorder, chronic pericarditis who presents to the emergency department for concerns of alcohol withdrawal and chest pain. #. Alcohol use disorder with concerns of withdrawal: Will admit patient with phenobarb protocol. Monitor CIWA. Continue thiamine. Consulted Addiction Team #. Chest pain due to pericarditis: Patient noncompliant with medications. Continue prednisone and colchicine #. Alcoholic gastritis: Initiating IV Protonix #. Leukocytosis, chronic: Due to steroid use Med rec pending DVT prophylaxis: Lovenox Full code Admit as inpatient and will require two night minimum hospital stay for management of alcohol withdrawal (as above), which is not possible in a lesser acute setting. Quality Stroke Does the patient have a stroke diagnosis?: No VTE Prior VTE?: No VTE Risk Level:: Medical - moderate - high VTE Device Contraindication: Treatment Not Indicated VTE Drug Contraindication: N/A - Med Ordered
[2025-03-03 18:36] VITALS: BP 120/80; PULSE 109; RESP 18; O2SAT 98
--- NOTE | 2025-03-03 20:49 | PHA.MEDREC ---
Pharmacy Consult ? Medication Reconciliation Pharmacy has completed the medication reconciliation. Spoke with pt and spouse (Nani) at bedside, pt was in a lot of pain but spouse was able to confirm the pt medications. Per pt and spouse, pt taking Prednisone 30mg daily until pt goes for his echocardiogram on 03/20 then they see if pt Dr changes the Prednisone.
[2025-03-03 21:15] VITALS: BMI 28.9
[2025-03-03 21:26] VITALS: BP 115/84; PULSE 110; RESP 20; TEMP 37.2; O2SAT 96
--- NOTE | 2025-03-03 21:34 | PC.NURSE ---
Pt Arrived to unit around 2100 from ED. PT A+Ox3 not orient to date. Pt complained of 8/10 chest pain chest pain found to be reproducible. Dr Swanson made aware. One time dose medication ordered for pain. Seizure pads in place and bed alarm on for safety plan of care continuing
[2025-03-03] MEDS: PHENobarbitaL sodium 130 MG/ML VIAL IM Q3Hx2 205 MG IM (21:42)
[2025-03-03] MEDS: 0.9 % Sodium Chloride Flush 3 ML SYRINGE IVFLUSH (21:45)
[2025-03-04] VITALS (12 sets, daily range): BP systolic 130–163; BP diastolic 80–92; PULSE 61–102; RESP 15–20; TEMP 36.4–37.9; O2SAT 93–100
[2025-03-04] MEDS: PHENobarbitaL sodium 130 MG/ML VIAL IM Q3Hx2 205 MG IM (00:19)
[2025-03-04] MEDS: Lactated Ringers 1,000 ML 50 ML IVCONT ×2 (03:50→23:21)
[2025-03-04 07:10] LABS: Hematocrit 37.0 % (42.0-52.0); Hemoglobin 12.6 g/dl (14.0-18.0); Imm Gran Abs Auto 0.07 X10*3/uL (0.00-0.03); Imm Gran Pct Auto 0.4 % (0.0-0.4); Lymphocytes Absolute Auto 3.8 X10*3/uL (1.2-4.9); MANUAL DIFF FLAG SCAN; Mean Corpuscular HGB Conc 34.1 g/dl (31.0-36.0); Mean Corpuscular Hemoglobin 30.2 pg (27.0-33.0); Mean Corpuscular Volume 88.7 fL (80.0-98.0); NRBC Abs Auto 0.000 X10*3/uL (0.0-0.012); NRBC Pct Auto 0.0 /100WBC (0.0-0.2); Platelet Count 423 X10*3/uL (160-400); Red Blood Count 4.17 X10*6/uL (4.60-5.80); SCAN SMEAR FLAG 1; White Blood Count 15.6 X10*3/uL (4.8-10.8)
[2025-03-04 07:18] LABS: Blood Urea Nitrogen 7 mg/dL (9-16); Creatinine Clr Calc Pharmacy 145.8; Estimated Glomerular Filt Rate > 60
[2025-03-04 07:30] LABS: Anion Gap 14 (12-20); Calcium 8.0 mg/dL (8.4-10.2); Carbon Dioxide 27 mmol/L (22-29); Chloride 100 mmol/L (96-108); Potassium 3.0 mmol/L (3.3-5.1); Sodium 138 mmol/L (135-145); Troponin-I High Sensitivity < 2.7 ng/L (<3.5-35.0)
--- NOTE | 2025-03-04 09:51 | P.PNIM_ITS ---
Subjective Subjective Date of Service: 03/04/25 Interval History: Continues to have chest pain and abdominal pain. States he is unable to eat anything due to dysphagia and odynophagia. Constitutional Constitutional: Reports fatigue and Reports malaise ENT Ears, Nose, Mouth, and Throat: Reports dysphagia Cardiovascular Cardiovascular: Reports chest pain Respiratory Respiratory: Reports no additional respiratory complaints Gastrointestinal Gastrointestinal: Reports abdominal pain and Reports dysphagia Musculoskeletal Musculoskeletal: Reports no additional musculoskeletal complaints Endocrine Endocrine: Reports fatigue Physical Exam 2 Vital Signs: Vital Signs: Last Vital Signs Temp 97.8 F 03/04/25 07:16 Pulse 91 03/04/25 07:16 Resp 18 03/04/25 07:16 BP 138/87 03/04/25 07:16 Pulse Ox 98 03/04/25 07:16 O2 Del Method Room Air 03/04/25 07:16 BMI result Body Mass Index 28.9 Middle-aged male lying in bed in mild distress Neck supple, no JVD Regular rate and rhythm, S1-S2 heard Regular breath sounds bilaterally, no wheezing or crackles appreciated Abdomen soft nontender, no guarding, no rigidity Patient is awake, alert and oriented to self, place, time and person ; no focal motor deficit Psych: Anxious No pedal edema Objective Data Active Medications Acetaminophen (Acetaminophen 325 Mg Tablet) 650 mg PO Q6H PRN PRN Reason: Pain, Mild 1-3,fever,headache Last Admin: 03/04/25 03:03 Dose: 650 mg Documented By: NIDHI Calcium Carbonate (Calcium Carbonate 750 Mg Tab.Chew) 750 mg PO Q4H PRN PRN Reason: Heartburn Colchicine (Colchicine 0.6 Mg Tablet) 0.6 mg PO BID [facility] Last Admin: 03/04/25 08:53 Dose: 0.6 mg Documented By: JOHNNIE Enoxaparin Sodium (Enoxaparin Sodium 40 Mg/0.4 Ml Syringe) 40 mg SUBCUT Q24H [facility] Last Admin: 03/03/25 19:51 Dose: 40 mg Documented By: VANIA Famotidine (Famotidine 20 Mg Tablet) 40 mg PO DAILY@0630 [facility] Last Admin: 03/04/25 08:52 Dose: 40 mg Documented By: JOHNNIE Lactated Ringer's (Lr) 1,000 mls @ 50 mls/hr IVCONT .Q20H [facility] Last Admin: 03/04/25 03:50 Dose: 50 mls/hr Documented By: NIDHI Ibuprofen (Ibuprofen 400 Mg Tablet) 400 mg PO Q6H PRN PRN Reason: Pain, Severe (Pain Scale 7-10) Last Admin: 03/04/25 08:52 Dose: 400 mg Documented By: JOHNNIE Magnesium Hydroxide (Milk Of Magnesia 30 Ml Oral.Susp) 30 ml PO DAILY PRN PRN Reason: Constipation Melatonin (Melatonin 3 Mg Tablet) 6 mg PO BEDTIME PRN PRN Reason: Insomnia Last Admin: 03/03/25 19:50 Dose: 6 mg Documented By: VANIA Multivitamins/Vitamin C (Multivitamin Tablet) 1 tab PO DAILY [facility] Last Admin: 03/04/25 08:52 Dose: 1 tab Documented By: JOHNNIE Ondansetron HCl (Ondansetron Hcl 4 Mg/2 Ml Vial) 4 mg IVPUSH Q8H PRN PRN Reason: Nausea and Vomiting Last Admin: 03/04/25 03:04 Dose: 4 mg Documented By: NIDHI Pantoprazole Sodium (Pantoprazole Sodium 40 Mg/10 Ml Vial) 40 mg IVPUSH DAILY@0630 [facility] Last Admin: 03/04/25 05:48 Dose: 40 mg Documented By: NIDHI Pharmacy Consult (Consult Rx Etoh Phenob Im/Po) 1 each MISCELLANE ONCE PRN; Protocol PRN Reason: Consult order Phenobarbital (Phenobarbital 15 Mg Tablet) 45 mg PO BID [facility]; Protocol Stop: 03/05/25 21:01 Last Admin: 03/04/25 06:11 Dose: 45 mg Documented By: NIDHI Comments: Dr Blas instructed to give early CIWA 17 Phenobarbital (Phenobarbital 30 Mg Tablet) 30 mg PO BID [facility]; Protocol Stop: 03/07/25 21:01 Phenobarbital (Phenobarbital 30 Mg Tablet) 30 mg PO DAILY [facility]; Protocol Stop: 03/09/25 09:01 Prednisone (Prednisone 10 Mg Tablet) 30 mg PO DAILY [facility] Last Admin: 03/04/25 08:52 Dose: 30 mg Documented By: JOHNNIE Sodium Chloride (0.9 % Sodium Chloride Flush 3 Ml Syringe) 3 ml IVFLUSH QSHIFT [facility] Last Admin: 03/04/25 08:07 Dose: Not Given Documented By: JOHNNIE Non-Admin Reason: IV Running Thiamine HCl (Thiamine Hcl 100 Mg Tablet) 100 mg PO DAILY EL Last Admin: 03/04/25 08:52 Dose: 100 mg Documented By: JOHNNIE Labs 03/04/25 06:56 03/04/25 06:56 Labs: Laboratory Results - last 24 hr 03/03/25 03/04/25 16:50 06:56 MCV 87.2 88.7 MCH 30.1 30.2 MCHC 34.6 34.1 RDW 14.8 14.8 Plt Count 499 H 423 H MPV 8.6 L 8.5 L Immature Gran % (Auto) 0.5 H 0.4 Neut % (Auto) 80.2 H 61.4 Lymph % (Auto) 13.5 L 24.1 [place] % (Auto) 5.5 13.4 H Eos % (Auto) 0.0 0.3 Baso % (Auto) 0.3 0.4 Lymph # (Auto) 2.0 3.8 [place] # (Auto) 0.8 2.1 H Eos # (Auto) 0.0 0.1 Baso # (Auto) 0.0 0.1 Abs Immat Gran (auto) 0.08 H 0.07 H Absolute Neuts (auto) 11.7 H 9.6 H Absolute Nucleated RBC 0.000 0.000 Nucleated RBC % (auto) 0.0 0.0 Smear Tech's Comments VERIFIED Anion Gap 23 H 14 Estim Creat Clear Calc 149.0 145.8 Estimated GFR > 60 > 60 Random Glucose 137 H 88 Calcium 9.5 D 8.0 L D Assessment and Plan (1) Alcohol withdrawal syndrome: Status: Acute (2) Pericarditis: Status: Acute Plan This is a 34-year-old male with pertinent history of alcohol use disorder, chronic pericarditis who presents to the emergency department for concerns of alcohol withdrawal and chest pain. #. Alcohol use disorder with concerns of withdrawal: Continue phenobarb protocol. Monitor CIWA. Continue thiamine. Consulted Addiction Team #. Chest pain due to pericarditis: Patient noncompliant with medications. Continue prednisone and colchicine #. Alcoholic gastritis with dysphagia ?odynophagia: Initiated IV Protonix. Consulted Gastroenterology #. Hypokalemia: Repleting #. Leukocytosis, chronic: Due to steroid use DVT prophylaxis: Lovenox Full code Reason for continued hospitalization: alcohol withdrawal, evaluation of dysphagia (as above), which is not possible in a lesser acute setting. Quality Stroke Does the patient have a stroke diagnosis?: No VTE Prior VTE?: No VTE Risk Level:: Medical - moderate - high VTE Device Contraindication: Treatment Not Indicated VTE Drug Contraindication: N/A - Med Ordered
--- NOTE | 2025-03-04 09:55 | P.CDIM_ITS ---
PROVIDER RESPONSE TEXT: To clarify, the appropriate diagnosis supported by the clinical indicators: Hypokalemia: hypokalemia QUERY TEXT: PHYSICIAN'S DOCUMENTATION REQUEST Date of Query: 03/04/2025 09:43 AM EDT Patient Name: Jack Burns Admit Date: 03/03/2025 Dear Mo Prescott MD, A review of the medical record indicates additional documentation may be needed. Please review below and update the documentation accordingly. Clinical Indicators: LABS: Potassium 3.0 3.8 3.0 Alcohol abuse, started on phenobarb protocol, concern for withdrawals. Based on the above, is there a diagnosis that correlates with these findings? Hypokalemia suspected, possible, probable, resolved etc. Labs indicate a diagnosis of (please specify) Other (explain) Clinically unable to determine (explain) Thank you, Theresa Palomino, CCS, CDIS Use of terms such as suspected, likely, concern for, or probable (associated with a specific diagnosis that is being evaluated, monitored, or treated as if it exists) are acceptable and can be coded in the inpatient setting, when documented at the time of discharge. Please use your independent medical judgment in providing your response. THIS QUERY IS PART OF THE PERMANENT MEDICAL RECORD
[2025-03-04] MEDS: Potassium Chloride/H20 10 MEQ/100 ML PIGGYBACK 100 MEQ IV ×4 (11:09→16:17)
--- NOTE | 2025-03-04 11:15 | P.CONAN_ITS ---
HPI - Anesthesia Eval Consult details Narrative: 34 yr old male for upper endoscopy Chronic pericarditis/h/o pericardial effusion: Follows with [facility] cardiology, on predisone, colchicine No LATRICE diagnosis, missed sleep study per pt H/O ETOH, cocaine abuse PMFSH Active Problems Active Problems: All Active Problems Pleural effusion (Acute) Pneumonia (Acute) Acute pericardial effusion (Acute) Pericarditis (Acute) Recurrent idiopathic pericarditis (Acute) Pericardial effusion (Acute) Acute pericardial effusion (Acute) Alcohol use disorder, severe, dependence (Acute) Hypokalemia (Acute) Alcohol withdrawal syndrome (Acute) Cocaine use (Acute) Past Medical History Medical History Pericardial effusion Alcohol use disorder, moderate, dependence MDD (major depressive disorder), recurrent episode, moderate Nausea with vomiting Alcohol use disorder Anxiety and depression History of seizure due to alcohol withdrawal ETOH abuse Family History Family History Other Diabetes Family history of problems with anesthesia: No (pt grew up in foster care) Surgical History History of Problems with Anesthesia: Yes (?aspiration with prior anesthesia) Social History Social History Household Members: Spouse and Children Housing: House Do you presently have visiting nurse or other home services: No Alcohol intake: current Alcohol intake frequency: 3 or more drinks per day Alcohol type: hard liquor Patient Tobacco Use Status: Former Tobacco user Tobacco use type: Cigarette Smoked in Last 30 Days: No e-Cigarette/Vaping Use: Never Used Second Hand Smoke Exposure: No Use of substances other than those prescribed or required for medical reasons: No Substance Use Type: Crack/Cocaine Have you been hit, kicked, punched, or otherwise hurt by someone within the past year? If so, by whom?: No Do you feel safe in your current relationship?: Yes Is there a partner from a previous relationship who is making you feel unsafe now?: No Are you made to feel afraid or neglected: No Advance Directives: Yes Advance Directives on File: Yes Advance Directives Date on File: 11/07/22 Do you have a plan to hurt others: No Plan Recently lost weight without trying: No service: No (PATIENT ASLEEP AND NOT EASILY AROUSEDFOR ASSESSMENTCONVERSATION) Current occupational status: employed Meds Allergies Allergy/AdvReac Type Severity Reaction Status Date / Time No Known Allergies Allergy Verified 03/03/25 16:41 Active Medications: Current Medications Acetaminophen (Acetaminophen 325 Mg Tablet) 650 mg PO Q6H PRN PRN Reason: Pain, Mild 1-3,fever,headache Last Admin: 03/04/25 03:03 Dose: 650 mg Calcium Carbonate (Calcium Carbonate 750 Mg Tab.Chew) 750 mg PO Q4H PRN PRN Reason: Heartburn Colchicine (Colchicine 0.6 Mg Tablet) 0.6 mg PO BID [facility] Last Admin: 03/04/25 08:53 Dose: 0.6 mg Enoxaparin Sodium (Enoxaparin Sodium 40 Mg/0.4 Ml Syringe) 40 mg SUBCUT Q24H [facility] Last Admin: 03/03/25 19:51 Dose: 40 mg Famotidine (Famotidine 20 Mg Tablet) 40 mg PO DAILY@0630 [facility] Last Admin: 03/04/25 08:52 Dose: 40 mg Lactated Ringer's (Lr) 1,000 mls @ 50 mls/hr IVCONT .Q20H [facility] Last Infusion: 03/04/25 11:11 Dose: 0 mls/hr Potassium Chloride (Potassium Chloride/H20) 10 meq in 100 mls @ 100 mls/hr IV Q1H [facility] Stop: 03/04/25 13:59 Last Admin: 03/04/25 11:09 Dose: 100 mls/hr Ibuprofen (Ibuprofen 400 Mg Tablet) 400 mg PO Q6H PRN PRN Reason: Pain, Severe (Pain Scale 7-10) Last Admin: 03/04/25 08:52 Dose: 400 mg Magnesium Hydroxide (Milk Of Magnesia 30 Ml Oral.Susp) 30 ml PO DAILY PRN PRN Reason: Constipation Melatonin (Melatonin 3 Mg Tablet) 6 mg PO BEDTIME PRN PRN Reason: Insomnia Last Admin: 03/03/25 19:50 Dose: 6 mg Multivitamins/Vitamin C (Multivitamin Tablet) 1 tab PO DAILY [facility] Last Admin: 03/04/25 08:52 Dose: 1 tab Ondansetron HCl (Ondansetron Hcl 4 Mg/2 Ml Vial) 4 mg IVPUSH Q8H PRN PRN Reason: Nausea and Vomiting Last Admin: 03/04/25 03:04 Dose: 4 mg Pantoprazole Sodium (Pantoprazole Sodium 40 Mg/10 Ml Vial) 40 mg IVPUSH DAILY@0630 [facility] Last Admin: 03/04/25 05:48 Dose: 40 mg Pharmacy Consult (Consult Rx Etoh Phenob Im/Po) 1 each MISCELLANE ONCE PRN; Protocol PRN Reason: Consult order Phenobarbital (Phenobarbital 15 Mg Tablet) 45 mg PO BID [facility]; Protocol Stop: 03/05/25 21:01 Last Admin: 03/04/25 06:11 Dose: 45 mg Phenobarbital (Phenobarbital 30 Mg Tablet) 30 mg PO BID [facility]; Protocol Stop: 03/07/25 21:01 Phenobarbital (Phenobarbital 30 Mg Tablet) 30 mg PO DAILY [facility]; Protocol Stop: 03/09/25 09:01 Prednisone (Prednisone 10 Mg Tablet) 30 mg PO DAILY [facility] Last Admin: 03/04/25 08:52 Dose: 30 mg Sodium Chloride (0.9 % Sodium Chloride Flush 3 Ml Syringe) 3 ml IVFLUSH QSHIFT [facility] Last Admin: 03/04/25 08:07 Dose: Not Given Thiamine HCl (Thiamine Hcl 100 Mg Tablet) 100 mg PO DAILY [facility] Last Admin: 03/04/25 08:52 Dose: 100 mg Home Medications ?Medication ?Instructions ?Recorded ?Confirmed ?Last Taken ?Type prednisone 10 mg tablet 30 mg PO DAILY 12/28/2402/0503/03/25 History thiamine HCl (vitamin B1) 100 mg 100 mg PO DAILY 02/2103/03/25 03/03/25 History tablet (Vitamin B-1) acetaminophen 500 mg tablet 1,000 mg PO Q6H PRN Pain 0 03/03/25 03/03/25 Unknown History famotidine 40 mg tablet 40 mg PO DAILY@0630 03/03/25 03/03/25 03/03/25 History ibuprofen 200 mg tablet 400 mg PO Q6H PRN Pain 03/0303/03/25 Unknown History melatonin 5 mg tablet 5 mg PO BEDTIME PRN slee[ 03/03/25 Unknown History multivitamin 1 tab PO DAILY 03/03/2502/0503/03/25 History Exam Height,Weight and Vital Signs: Height 5 ft 8 in Weight 86.3 kg Last Vital Signs Temp 97.8 F 03/04/25 07:16 Pulse 91 03/04/25 07:16 Resp 18 03/04/25 07:16 BP 138/87 03/04/25 07:16 Pulse Ox 98 03/04/25 07:16 O2 Del Method Room Air 03/04/25 07:16 Pertinent Lab Results Pertinent Lab Results: Laboratory Tests 03/03/25 03/04/25 16:50 06:56 WBC 14.6 H 15.6 H RBC 5.01 4.17 L Hgb 15.1 12.6 L Hct 43.7 37.0 L MCV 87.2 88.7 MCH 30.1 30.2 MCHC 34.6 34.1 RDW 14.8 14.8 Plt Count 499 H 423 H MPV 8.6 L 8.5 L Immature Gran % (Auto) 0.5 H 0.4 Neut % (Auto) 80.2 H 61.4 Lymph % (Auto) 13.5 L 24.1 [place] % (Auto) 5.5 13.4 H Eos % (Auto) 0.0 0.3 Baso % (Auto) 0.3 0.4 Lymph # (Auto) 2.0 3.8 [place] # (Auto) 0.8 2.1 H Eos # (Auto) 0.0 0.1 Baso # (Auto) 0.0 0.1 Abs Immat Gran (auto) 0.08 H 0.07 H Absolute Neuts (auto) 11.7 H 9.6 H Absolute Nucleated RBC 0.000 0.000 Nucleated RBC % (auto) 0.0 0.0 Smear Tech's Comments VERIFIED Sodium 143 138 Potassium 3.8 D 3.0 L D Chloride 100 100 Carbon Dioxide 24 27 Anion Gap 23 H 14 BUN 6 L 7 L Creatinine 0.78 0.77 Estim Creat Clear Calc 149.0 145.8 Estimated GFR > 60 > 60 Random Glucose 137 H 88 Calcium 9.5 D 8.0 L D Troponin I High Sens < 2.7 < 2.7 Narrative Narrative: EKG 03/03/25 Vent. Rate : 127 BPM Atrial Rate : 127 BPM P-R Int : 144 ms QRS Dur : 74 ms QT Int : 296 ms P-R-T Axes : 51 56 70 degrees QTcB Int : 430 ms Sinus tachycardia Otherwise normal ECG When compared with ECG of 21-Feb-2025 13:54, No significant change was found Transthoracic Echocardiogram 12/2024 Conclusions: - Normal left ventricular size and systolic function. There is mildly increased left ventricular wall thickness. The visually estimated ejection fraction is between 60-65%. - There is abnormal septal motion with excessive respiratory change. - There is no evidence of pericardial effusion. Airway Mallampati Class: II TM Dist: >3cm Neck ROM: Full Loose/Missing/Broken Teeth: Yes and Lower (M) Heart: RRR Lungs: CTAB Assessment and Plan Final Anesthetic Review Family History of Problems with Anesthesia: No (pt grew up in foster care) History of Problems with Anesthesia: Yes (?aspiration with prior anesthesia)
--- NOTE | 2025-03-04 11:20 | P.CNGI_ITS ---
History of Present Illness Data of Consult Service Date: 03/04/25 Requesting physician: Mo Prescott Primary Care Provider: Unknown Physician HPI Reason for consult: Dysphagia and odynophagia 34 YM with alcohol use disorder, chronic pericarditis seen at [facility] on 03/03/25 with concern for alcohol withdrawal and chest pain. Patient states his last drink was on the morning of 03/03/25. Pt complains of dysphagia, odynophagia and a burning sensation in his chest for the past few days. He reports his symptoms are worse when he eats or drinks hot or warm foods and fluids (does Ok with cold foods). Pt complains of dyshagia and has to drink fluids to help him swallow. He notes he had multiple episodes of non-bloody emesis yesterday Pt complains of chills and sweating and denies fever, palpitations, abdominal pain, changes in urinary or bowel habits. Pt has a history of GERD (denies nocturnal regurgitation) and takes pantoprazole 40 mg twice a day. Pt reports having an EGD at [facility] a few years ago and a polyp was removed ? from the esophagus. After the procedure, he was informed that the procedure was difficult due to constant gagging. Procedure was complicated by aspiration patient denies needing antibiotics postprocedure. He admits to drinking upto 33 beers (and some hard liqour) a day and has been drinking since age 15 yrs He denies smoking cigarettes and admits to taking marijuana intermittently. Patient denies any recent change in bowel habits, weight or appetite. 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 He is and has 1 child and lives with his and mother in law. Patient recently lost his job and has been drinking as it is the only thing that helps. Since he stopped drinking, he has been having tremors and anxiety. He does have history of alcohol withdrawal including alcohol withdrawal seizures. Patient stated he needs help and is willing for detox. Of note, patient was recently admitted for alcohol withdrawal but left AMA. In the emergency department, patient was initiated on phenobarb protocol Review of Systems 2 Constitutional: Constitutional: Reports fatigue and Reports malaise Cardiovascular: Cardiovascular: Reports chest pain Respiratory: Respiratory: Reports no additional respiratory complaints Gastrointestinal: Gastrointestinal: Reports abdominal pain Musculoskeletal: Musculoskeletal: Reports no additional musculoskeletal complaints Endocrine: Endocrine: Reports fatigue PMFSH Past Medical History Medical History Pericarditis Pericardial effusion Alcohol use disorder, moderate, dependence MDD (major depressive disorder), recurrent episode, moderate Nausea with vomiting Alcohol use disorder Anxiety and depression History of seizure due to alcohol withdrawal ETOH abuse Family History Family History Other Diabetes Surgical History Surgical History History of surgery H/O endoscopy Social History Social History Household Members: Spouse and Children Housing: House Do you presently have visiting nurse or other home services: No Alcohol intake: current Alcohol intake frequency: 3 or more drinks per day Alcohol type: hard liquor Patient Tobacco Use Status: Former Tobacco user Tobacco use type: Cigarette Smoked in Last 30 Days: No e-Cigarette/Vaping Use: Never Used Second Hand Smoke Exposure: No Use of substances other than those prescribed or required for medical reasons: Yes Substance Use Type: Crack/Cocaine Have you been hit, kicked, punched, or otherwise hurt by someone within the past year? If so, by whom?: No Do you feel safe in your current relationship?: Yes Is there a partner from a previous relationship who is making you feel unsafe now?: No Are you made to feel afraid or neglected: No Are you DNR?: No Advance Directives: Yes Advance Directives on File: Yes Advance Directives Date on File: 11/07/22 Do you have a plan to hurt others: No Plan Recently lost weight without trying: No Poor oral hygiene: No service: No Current occupational status: employed Meds Allergies Allergy/AdvReac Type Severity Reaction Status Date / Time No Known Allergies Allergy Verified 03/03/25 16:41 Active Medications: Current Medications Acetaminophen (Acetaminophen 325 Mg Tablet) 650 mg PO Q6H PRN PRN Reason: Pain, Mild 1-3,fever,headache Last Admin: 03/04/25 03:03 Dose: 650 mg Calcium Carbonate (Calcium Carbonate 750 Mg Tab.Chew) 750 mg PO Q4H PRN PRN Reason: Heartburn Colchicine (Colchicine 0.6 Mg Tablet) 0.6 mg PO BID [facility] Last Admin: 03/04/25 08:53 Dose: 0.6 mg Enoxaparin Sodium (Enoxaparin Sodium 40 Mg/0.4 Ml Syringe) 40 mg SUBCUT Q24H [facility] Last Admin: 03/03/25 19:51 Dose: 40 mg Famotidine (Famotidine 20 Mg Tablet) 40 mg PO DAILY@0630 [facility] Last Admin: 03/04/25 08:52 Dose: 40 mg Lactated Ringer's (Lr) 1,000 mls @ 50 mls/hr IVCONT .Q20H [facility] Last Infusion: 03/04/25 11:11 Dose: 0 mls/hr Potassium Chloride (Potassium Chloride/H20) 10 meq in 100 mls @ 100 mls/hr IV Q1H [facility] Stop: 03/04/25 13:59 Last Admin: 03/04/25 11:09 Dose: 100 mls/hr Ibuprofen (Ibuprofen 400 Mg Tablet) 400 mg PO Q6H PRN PRN Reason: Pain, Severe (Pain Scale 7-10) Last Admin: 03/04/25 08:52 Dose: 400 mg Magnesium Hydroxide (Milk Of Magnesia 30 Ml Oral.Susp) 30 ml PO DAILY PRN PRN Reason: Constipation Melatonin (Melatonin 3 Mg Tablet) 6 mg PO BEDTIME PRN PRN Reason: Insomnia Last Admin: 03/03/25 19:50 Dose: 6 mg Multivitamins/Vitamin C (Multivitamin Tablet) 1 tab PO DAILY [facility] Last Admin: 03/04/25 08:52 Dose: 1 tab Ondansetron HCl (Ondansetron Hcl 4 Mg/2 Ml Vial) 4 mg IVPUSH Q8H PRN PRN Reason: Nausea and Vomiting Last Admin: 03/04/25 03:04 Dose: 4 mg Pantoprazole Sodium (Pantoprazole Sodium 40 Mg/10 Ml Vial) 40 mg IVPUSH DAILY@0630 [facility] Last Admin: 03/04/25 05:48 Dose: 40 mg Pharmacy Consult (Consult Rx Etoh Phenob Im/Po) 1 each MISCELLANE ONCE PRN; Protocol PRN Reason: Consult order Phenobarbital (Phenobarbital 15 Mg Tablet) 45 mg PO BID [facility]; Protocol Stop: 03/05/25 21:01 Last Admin: 03/04/25 06:11 Dose: 45 mg Phenobarbital (Phenobarbital 30 Mg Tablet) 30 mg PO BID [facility]; Protocol Stop: 03/07/25 21:01 Phenobarbital (Phenobarbital 30 Mg Tablet) 30 mg PO DAILY [facility]; Protocol Stop: 03/09/25 09:01 Prednisone (Prednisone 10 Mg Tablet) 30 mg PO DAILY [facility] Last Admin: 03/04/25 08:52 Dose: 30 mg Sodium Chloride (0.9 % Sodium Chloride Flush 3 Ml Syringe) 3 ml IVFLUSH QSHIFT [facility] Last Admin: 03/04/25 08:07 Dose: Not Given Thiamine HCl (Thiamine Hcl 100 Mg Tablet) 100 mg PO DAILY [facility] Last Admin: 03/04/25 08:52 Dose: 100 mg Home Medications ?Medication ?Instructions ?Recorded ?Confirmed ?Last Taken ?Type prednisone 10 mg tablet 30 mg PO DAILY 12/28/2402/0503/03/25 History thiamine HCl (vitamin B1) 100 mg 100 mg PO DAILY 02/2103/03/25 03/03/25 History tablet (Vitamin B-1) acetaminophen 500 mg tablet 1,000 mg PO Q6H PRN Pain 0 03/03/25 03/03/25 Unknown History famotidine 40 mg tablet 40 mg PO DAILY@0630 03/03/25 03/03/25 03/03/25 History ibuprofen 200 mg tablet 400 mg PO Q6H PRN Pain 03/0303/03/25 Unknown History melatonin 5 mg tablet 5 mg PO BEDTIME PRN slee[ 03/03/25 Unknown History multivitamin 1 tab PO DAILY 03/03/2502/0503/03/25 History Physical Exam 2 Vital Signs: Vital Signs: Last Vital Signs Temp 97.8 F 03/04/25 07:16 Pulse 91 03/04/25 07:16 Resp 18 03/04/25 07:16 BP 138/87 03/04/25 07:16 Pulse Ox 98 03/04/25 07:16 O2 Del Method Room Air 03/04/25 07:16 BMI result Body Mass Index 28.9 Const: General: no acute distress and anxious Nutritional Appearance: o verweight Orientation/consciousness: patient oriented x3 Limitations: no limitations HEENT: Head: Yes normal to inspection Ears: hearing grossly normal bilaterally Eyes: Sclerae: sclerae normal Pupils: Equal, round and reactive pupils present Neck: Neck: Yes normal visual inspection Chest: Chest palpation & inspection: normal inspection of the chest Resp: Effort & Inspection: normal respiratory effort Auscultation: clear to auscultation bilaterally Cardio: Palpation: normal PMI Rate: regular rate Rhythm: regular rhythm Heart sounds: S1 normal heart sound present, S2 normal heart sound present and no murmurs GI: Palpation (GI): Soft to palpation, nontender and No hepatosplenomegaly present Auscultation: normal bowel sounds Rectal Exam - Male: Yes deferred Skin: General skin exam: no rashes or lesions noted Neuro: General: patient oriented x3, gait normal and moves all extremities Cranial nerves: Yes Equal, round and reactive pupils present Psych: Appearance: grossly normal Mental Status: mental status grossly normal Results Labs 03/04/25 06:56 03/04/25 06:56 Labs: Short CBC 03/03/25 03/04/25 Range/Units 16:50 06:56 WBC 14.6 H 15.6 H (4.8-10.8) X10*3/uL Hgb 15.1 12.6 L (14.0-18.0) g/dl Hct 43.7 37.0 L (42.0-52.0) % Plt Count 499 H 423 H (160-400) X10*3/uL BMP 03/03/25 03/04/25 16:50 06:56 Sodium 143 138 Potassium 3.8 D 3.0 L D Chloride 100 100 Carbon Dioxide 24 27 BUN 6 L 7 L Creatinine 0.78 0.77 Calcium 9.5 D 8.0 L D Assessment and Plan (1) Dysphagia, pharyngoesophageal phase: Status: Acute (2) Alcohol use disorder, severe, dependence: Status: Acute Plan 34 YM with alcohol use disorder, chronic pericarditis seen at [facility] on 03/03/25 with concern for alcohol withdrawal and chest pain. Patient states his last drink was on the morning of 03/03/25. Pt complains of dysphagia, odynophagia and a burning sensation in his chest for the past few days. He reports his symptoms are worse when he eats or drinks hot or warm foods and fluids (does Ok with cold foods). Pt's symptoms are suggestive of severe GERD with erosive esophagitis +/- Jacqui infection. Alcohol use disorder with normal LFTs RECOMMENDATIONS: 1. Agree with IV PPI, antiemetics and CIW November recall for alcohol withdrawal 2. Patient is scheduled for an urgent upper endoscopy today. EGD procedure and potential complications including bleeding, perforation, reaction to anesthetics and aspiration were reviewed with the patient. Procedures Date of Service Date of Service: 03/04/25
--- NOTE | 2025-03-04 11:29 | MHC.CM.PN ---
Pt lives with his spouse and family, He is not current with PCP, he said he is going to call [facility] to make an appt. HCP is on file and confirmed: Nani. Pt does not use home health services or DME. He can arrange a ride home at [place]. DCP: home, self care. CM to follow for DC needs.
--- NOTE | 2025-03-04 11:43 | ECG_ITS ---
Test Reason : chest heaviness Blood Pressure : */* mmHG Vent. Rate : 91 BPM Atrial Rate : 91 BPM P-R Int : 140 ms QRS Dur : 80 ms QT Int : 360 ms P-R-T Axes : 67 53 61 degrees QTcB Int : 442 ms Normal sinus rhythm with sinus arrhythmia Normal ECG When compared with ECG of 03-Mar-2025 16:35, No significant change was found Referred By: Breanna Reynolds Electronically Signed By: CHAO RUIZ MD
--- NOTE | 2025-03-04 12:21 | PC.NURSE ---
md del cid by bedside evaluating patient. pain remains in the chest but the heaviness feeling is starting to subside. hob 45 degrees. color wnl.
--- NOTE | 2025-03-04 13:50 | W.PM.OPN ---
Operative Note Operative Note Date of Service: 03/04/25 Narrative: FLEXIBLE TRANSORAL UPPER GASTROINTESTINAL ENDOSCOPY WITH BIOPSIES AND ESOPHAGEAL BRUSHING Pre-op diagnosis: GERD, Dysphagia and odynophagia Post-op diagnosis: GERD, severe erosive esophagitis, hiatal hernia, Gastritis, Endoscopist:? Mj Martinez MD Anesthesia:?MAC UPPER ENDOSCOPY Consent: Indications for the procedure and potential complications of bleeding, perforation, reaction to medications and missed diagnosis were discussed with the patient and informed consent was obtained. Instrument: Olympus GIF H 190 mid size upper endoscope Monitoring: Vital signs and clinical assessment, continuous EKG monitoring, Pulse oximetry, Carbon Dioxide monitoring and blood pressure monitoring were done throughout the procedure. Procedure: The patient was placed in the left lateral decubitis position and pre-procedure medications were administered and a bite block was placed. The endoscope was inserted into the mouth and advanced under direct vision to the third part of duodenum. A careful inspection was made as the upper endoscope was withdrawn including a retroflexed examination of the proximal stomach; Findings and interventions are described below. Findings: Larynx: Normal Esophagus: GE junction at 35 cms, hiatal hernia 35 to 40 cms. Severe erosive esophagitis from 25 to 35 cms with circumferential ulcerations (LA Grade D) and white exudate Brushings obtained to check for Jacqui. Stomach: Moderate diffuse gastric erythema - biopsies were obtained from the antrum to check for H pylori Grade 3 flap valve on retroflexed examination of the cardia. Duodenum: Normal bulb and descending duodenum Intervention: Biopsies as noted above Impression and Post Procedure Diagnosis: Endoscopy Findings: ESOPHAGUS: Hiatal hernia, severe erosive esophagitis with circumferential ulcerations (LA Grade D) and white exudate STOMACH: Gastritis DUODENUM: Normal Pt's symptoms are likely due to severe erosive esophagitis due to GERD exacerbated by heavy alcohol abuse. Plan: 1. Continue IV Pantprazole twice daily 2. Add magic mouth wash four times daily and Carafate slurries 1 gram twice a day - order placed. 3. Repeat EGD in 3-4 months to confirm esophagitis has healed. 4. ETOH Rehab Above findings were reviewed with the patient.
--- NOTE | 2025-03-04 14:18 | P.CONAN_ITS ---
[facility] Active Problems Active Problems: All Active Problems (Updated 03/04/25 @ 12:09 by Lolita Flores RN) Dysphagia, pharyngoesophageal phase (Acute) Pleural effusion (Acute) Pneumonia (Acute) Acute pericardial effusion (Acute) Recurrent idiopathic pericarditis (Acute) Acute pericardial effusion (Acute) Pericarditis (Acute) Alcohol use disorder, severe, dependence (Acute) Hypokalemia (Acute) Alcohol withdrawal syndrome (Acute) Cocaine use (Acute) Pericardial effusion (Acute) Past Medical History Medical History Pericarditis Pericardial effusion Alcohol use disorder, moderate, dependence MDD (major depressive disorder), recurrent episode, moderate Nausea with vomiting Alcohol use disorder Anxiety and depression History of seizure due to alcohol withdrawal ETOH abuse Functional capacity: independent ambulation Family History Family History Other Diabetes Family history of problems with anesthesia: No (pt grew up in foster care) Surgical History Surgical History History of surgery H/O endoscopy History of Problems with Anesthesia: Yes (?aspiration with prior anesthesia) Social History Social History Household Members: Spouse and Children Housing: House Do you presently have visiting nurse or other home services: No Alcohol intake: current Alcohol intake frequency: 3 or more drinks per day Alcohol type: hard liquor Patient Tobacco Use Status: Former Tobacco user Tobacco use type: Cigarette Smoked in Last 30 Days: No e-Cigarette/Vaping Use: Never Used Second Hand Smoke Exposure: No Use of substances other than those prescribed or required for medical reasons: Yes Substance Use Type: Crack/Cocaine Have you been hit, kicked, punched, or otherwise hurt by someone within the past year? If so, by whom?: No Do you feel safe in your current relationship?: Yes Is there a partner from a previous relationship who is making you feel unsafe now?: No Are you made to feel afraid or neglected: No Are you DNR?: No Advance Directives: Yes Advance Directives on File: Yes Advance Directives Date on File: 11/07/22 Do you have a plan to hurt others: No Plan Recently lost weight without trying: No Poor oral hygiene: No service: No Current occupational status: employed Meds Allergies Allergy/AdvReac Type Severity Reaction Status Date / Time No Known Allergies Allergy Verified 03/03/25 16:41 Active Medications: Current Medications Acetaminophen (Acetaminophen 325 Mg Tablet) 650 mg PO Q6H PRN PRN Reason: Pain, Mild 1-3,fever,headache Last Admin: 03/04/25 03:03 Dose: 650 mg Calcium Carbonate (Calcium Carbonate 750 Mg Tab.Chew) 750 mg PO Q4H PRN PRN Reason: Heartburn Colchicine (Colchicine 0.6 Mg Tablet) 0.6 mg PO BID [facility] Last Admin: 03/04/25 08:53 Dose: 0.6 mg Enoxaparin Sodium (Enoxaparin Sodium 40 Mg/0.4 Ml Syringe) 40 mg SUBCUT Q24H [facility] Last Admin: 03/03/25 19:51 Dose: 40 mg Lactated Ringer's (Lr) 1,000 mls @ 50 mls/hr IVCONT .Q20H [facility] Last Infusion: 03/04/25 11:11 Dose: 0 mls/hr Lidocaine/Diphenhydr/Alum/Mg/Simeth (Mag&Al/Sim/Diphenhyd/Lidocaine 10 Ml Oral.Susp) 10 ml PO Q6H PRN; Protocol PRN Reason: odynophagia Magnesium Hydroxide (Milk Of Magnesia 30 Ml Oral.Susp) 30 ml PO DAILY PRN PRN Reason: Constipation Melatonin (Melatonin 3 Mg Tablet) 6 mg PO BEDTIME PRN PRN Reason: Insomnia Last Admin: 03/03/25 19:50 Dose: 6 mg Multivitamins/Vitamin C (Multivitamin Tablet) 1 tab PO DAILY [facility] Last Admin: 03/04/25 08:52 Dose: 1 tab Ondansetron HCl (Ondansetron Hcl 4 Mg/2 Ml Vial) 4 mg IVPUSH Q8H PRN PRN Reason: Nausea and Vomiting Last Admin: 03/04/25 03:04 Dose: 4 mg Pantoprazole Sodium (Pantoprazole Sodium 40 Mg/10 Ml Vial) 40 mg IVPUSH BID@0630,1630 [facility] Pharmacy Consult (Consult Rx Etoh Phenob Im/Po) 1 each MISCELLANE ONCE PRN; Protocol PRN Reason: Consult order Phenobarbital (Phenobarbital 15 Mg Tablet) 45 mg PO BID [facility]; Protocol Stop: 03/05/25 21:01 Last Admin: 03/04/25 06:11 Dose: 45 mg Phenobarbital (Phenobarbital 30 Mg Tablet) 30 mg PO BID [facility]; Protocol Stop: 03/07/25 21:01 Phenobarbital (Phenobarbital 30 Mg Tablet) 30 mg PO DAILY [facility]; Protocol Stop: 03/09/25 09:01 Prednisone (Prednisone 10 Mg Tablet) 30 mg PO DAILY [facility] Last Admin: 03/04/25 08:52 Dose: 30 mg Sodium Chloride (0.9 % Sodium Chloride Flush 3 Ml Syringe) 3 ml IVFLUSH QSHIFT [facility] Last Admin: 03/04/25 08:07 Dose: Not Given Sucralfate (Sucralfate Oral Suspension 1 Gm/10 Ml Oral.Susp) 1 gm PO BID [facility] Thiamine HCl (Thiamine Hcl 100 Mg Tablet) 100 mg PO DAILY [facility] Last Admin: 03/04/25 08:52 Dose: 100 mg Home Medications ?Medication ?Instructions ?Recorded ?Confirmed ?Last Taken ?Type prednisone 10 mg tablet 30 mg PO DAILY 12/28/2402/0503/03/25 History thiamine HCl (vitamin B1) 100 mg 100 mg PO DAILY 02/2103/03/25 03/03/25 History tablet (Vitamin B-1) acetaminophen 500 mg tablet 1,000 mg PO Q6H PRN Pain 0 03/03/25 03/03/25 Unknown History famotidine 40 mg tablet 40 mg PO DAILY@0630 03/03/25 03/03/25 03/03/25 History ibuprofen 200 mg tablet 400 mg PO Q6H PRN Pain 03/0303/03/25 Unknown History melatonin 5 mg tablet 5 mg PO BEDTIME PRN slee[ 03/03/25 Unknown History multivitamin 1 tab PO DAILY 03/03/2502/0503/03/25 History Exam Height,Weight and Vital Signs: Height 5 ft 8 in Weight 86.3 kg Last Vital Signs Temp 97.5 F 03/04/25 14:18 Pulse 91 03/04/25 14:18 Resp 18 03/04/25 14:18 BP 144/86 H 03/04/25 14:18 Pulse Ox 95 03/04/25 14:18 O2 Del Method Room Air 03/04/25 14:18 O2 Flow Rate 2 03/04/25 14:05 Pertinent Lab Results Pertinent Lab Results: Laboratory Tests 03/03/25 03/04/25 16:50 06:56 WBC 14.6 H 15.6 H RBC 5.01 4.17 L Hgb 15.1 12.6 L Hct 43.7 37.0 L MCV 87.2 88.7 MCH 30.1 30.2 MCHC 34.6 34.1 RDW 14.8 14.8 Plt Count 499 H 423 H MPV 8.6 L 8.5 L Immature Gran % (Auto) 0.5 H 0.4 Neut % (Auto) 80.2 H 61.4 Lymph % (Auto) 13.5 L 24.1 [place] % (Auto) 5.5 13.4 H Eos % (Auto) 0.0 0.3 Baso % (Auto) 0.3 0.4 Lymph # (Auto) 2.0 3.8 [place] # (Auto) 0.8 2.1 H Eos # (Auto) 0.0 0.1 Baso # (Auto) 0.0 0.1 Abs Immat Gran (auto) 0.08 H 0.07 H Absolute Neuts (auto) 11.7 H 9.6 H Absolute Nucleated RBC 0.000 0.000 Nucleated RBC % (auto) 0.0 0.0 Smear Tech's Comments VERIFIED Sodium 143 138 Potassium 3.8 D 3.0 L D Chloride 100 100 Carbon Dioxide 24 27 Anion Gap 23 H 14 BUN 6 L 7 L Creatinine 0.78 0.77 Estim Creat Clear Calc 149.0 145.8 Estimated GFR > 60 > 60 Random Glucose 137 H 88 Calcium 9.5 D 8.0 L D Troponin I High Sens < 2.7 < 2.7 Airway Mallampati Class: II TM Dist: >3cm Heart: RRR Lungs: CTA Assessment and Plan Assessment Anesthesia Assessment: Anesthesia Plan Discussed Final Anesthetic Review Family History of Problems with Anesthesia: No (pt grew up in foster care) History of Problems with Anesthesia: Yes (?aspiration with prior anesthesia) NPO: Yes ASA Class: III and Emergency Final Preanesthetic Review: Meds/Allgs Chart Reviewed, Consent Obtained/Reviewed and Anes Risks/Benef Reviewed Patient Risk: Intermediate Procedure Risk: Low Anesthetic Plan Anesthetic Plan: MAC: Disposition: Standard PACU
--- NOTE | 2025-03-04 14:22 | HO.ADDICTCON ---
History of Present Illness Date of Service: 03/04/2025 Chief Complaint: Chest Pain Reason for Consult: AUD Sources of Information: patient interviewed and chart reviewed HPI Narrative: Patient is a 34 year old male with medical history including recurrent idiopathic pericarditis and AUD. Medically admitted with acute alcohol withdrawal and chest pain. Patient seen in room 486. He is awake, alert, weak appearing. Just returned from having EGD. He reports he is feeling better than this morning , but still not feeling well. CIWA 7 when seen by t/w. Biggest complaints are fullness in his head and spontaneous tremor, which he says wakes him up. Reported drinking 30 beers daily. States he lost his job. Chart review shows this is patient's 4th medical admission since December 2024. Patient met with recruiting intern and was agreeable to Material Specialist referral Substance use and treatment history reviewed Labs reviewed low K and calcium, high wbcs Past Psychiatric History: Inpatient: denies OP: none Past med trials: Lexapro (limited therapeutic efficacy) Review of Systems Constitutional: Reports as per HPI Diagnostics Vital Signs (24Hr): Vital Signs - 24 hr 03/03/25 16:39 03/03/25 18:36 03/03/25 21:26 Temperature 97.6 F 98.9 F Pulse Rate 125 H 109 H 110 H Respiratory Rate 20 18 20 Blood Pressure 136/89 120/80 115/84 Pulse Oximetry 98 96 Oxygen Delivery Method Room Air Room Air Oxygen Flow Rate 03/04/25 00:00 03/04/25 03:25 03/04/25 07:16 Temperature 98.0 F 99.7 F 97.8 F Pulse Rate 98 98 91 Respiratory Rate 20 20 18 Blood Pressure 140/80 H 131/81 138/87 Pulse Oximetry 98 98 98 Oxygen Delivery Method Room Air Room Air Room Air Oxygen Flow Rate 03/04/25 11:57 03/04/25 11:58 03/04/25 13:50 Temperature 97.6 F 98.7 F Pulse Rate 85 78 81 Respiratory Rate 18 16 Blood Pressure 132/91 H 140/83 H Pulse Oximetry 99 100 96 Oxygen Delivery Method Room Air Nasal Cannula Nasal Cannula Oxygen Flow Rate 3 2 03/04/25 14:05 03/04/25 14:18 Temperature 98.6 F 97.5 F Pulse Rate 81 91 Respiratory Rate 18 18 Blood Pressure 130/83 144/86 H Pulse Oximetry 96 95 Oxygen Delivery Method Nasal Cannula Room Air Oxygen Flow Rate 2 BMI result Body Mass Index 28.9 Labs 03/04/25 06:56 03/04/25 06:56 Labs: Laboratory Results - last 48 hr 03/03/25 03/04/25 16:50 06:56 WBC 14.6 H 15.6 H RBC 5.01 4.17 L Hgb 15.1 12.6 L Hct 43.7 37.0 L MCV 87.2 88.7 MCH 30.1 30.2 MCHC 34.6 34.1 RDW 14.8 14.8 Plt Count 499 H 423 H MPV 8.6 L 8.5 L Immature Gran % (Auto) 0.5 H 0.4 Neut % (Auto) 80.2 H 61.4 Lymph % (Auto) 13.5 L 24.1 [place] % (Auto) 5.5 13.4 H Eos % (Auto) 0.0 0.3 Baso % (Auto) 0.3 0.4 Lymph # (Auto) 2.0 3.8 [place] # (Auto) 0.8 2.1 H Eos # (Auto) 0.0 0.1 Baso # (Auto) 0.0 0.1 Abs Immat Gran (auto) 0.08 H 0.07 H Absolute Neuts (auto) 11.7 H 9.6 H Absolute Nucleated RBC 0.000 0.000 Nucleated RBC % (auto) 0.0 0.0 Smear Tech's Comments VERIFIED Sodium 143 138 Potassium 3.8 D 3.0 L D Chloride 100 100 Carbon Dioxide 24 27 Anion Gap 23 H 14 BUN 6 L 7 L Creatinine 0.78 0.77 Estim Creat Clear Calc 149.0 145.8 Estimated GFR > 60 > 60 Random Glucose 137 H 88 Calcium 9.5 D 8.0 L D Troponin I High Sens < 2.7 < 2.7 Mental Status Exam Mental Status Exam Level of Consciousness: Awake, Appropriate and Lethargic Patient Behavior: Appropriate Affect Description: Calm Speech Pattern: Clear Hallucinations: None Delusions: Not Present Thought Process: Intact Thought Content: positive for Intact Judgement: Good Medications Medications Current Medications Acetaminophen (Acetaminophen 325 Mg Tablet) 650 mg PO Q6H PRN PRN Reason: Pain, Mild 1-3,fever,headache Last Admin: 03/04/25 03:03 Dose: 650 mg Calcium Carbonate (Calcium Carbonate 750 Mg Tab.Chew) 750 mg PO Q4H PRN PRN Reason: Heartburn Colchicine (Colchicine 0.6 Mg Tablet) 0.6 mg PO BID [facility] Last Admin: 03/04/25 08:53 Dose: 0.6 mg Enoxaparin Sodium (Enoxaparin Sodium 40 Mg/0.4 Ml Syringe) 40 mg SUBCUT Q24H [facility] Last Admin: 03/03/25 19:51 Dose: 40 mg Lactated Ringer's (Lr) 1,000 mls @ 50 mls/hr IVCONT .Q20H [facility] Last Infusion: 03/04/25 11:11 Dose: 0 mls/hr Lidocaine/Diphenhydr/Alum/Mg/Simeth (Mag&Al/Sim/Diphenhyd/Lidocaine 10 Ml Oral.Susp) 10 ml PO Q6H PRN; Protocol PRN Reason: odynophagia Magnesium Hydroxide (Milk Of Magnesia 30 Ml Oral.Susp) 30 ml PO DAILY PRN PRN Reason: Constipation Melatonin (Melatonin 3 Mg Tablet) 6 mg PO BEDTIME PRN PRN Reason: Insomnia Last Admin: 03/03/25 19:50 Dose: 6 mg Multivitamins/Vitamin C (Multivitamin Tablet) 1 tab PO DAILY [facility] Last Admin: 03/04/25 08:52 Dose: 1 tab Naloxone HCl (Naloxone Hcl 0.4 Mg/Ml Vial) 0.04 mg IVPUSH Q5M PRN PRN Reason: Excessive sedation or RR < 8 Ondansetron HCl (Ondansetron Hcl 4 Mg/2 Ml Vial) 4 mg IVPUSH Q8H PRN PRN Reason: Nausea and Vomiting Last Admin: 03/04/25 03:04 Dose: 4 mg Pantoprazole Sodium (Pantoprazole Sodium 40 Mg/10 Ml Vial) 40 mg IVPUSH BID@0630,1630 [facility] Pharmacy Consult (Consult Rx Etoh Phenob Im/Po) 1 each MISCELLANE ONCE PRN; Protocol PRN Reason: Consult order Phenobarbital (Phenobarbital 15 Mg Tablet) 45 mg PO BID [facility]; Protocol Stop: 03/05/25 21:01 Last Admin: 03/04/25 06:11 Dose: 45 mg Phenobarbital (Phenobarbital 30 Mg Tablet) 30 mg PO BID [facility]; Protocol Stop: 03/07/25 21:01 Phenobarbital (Phenobarbital 30 Mg Tablet) 30 mg PO DAILY [facility]; Protocol Stop: 03/09/25 09:01 Prednisone (Prednisone 10 Mg Tablet) 30 mg PO DAILY [facility] Last Admin: 03/04/25 08:52 Dose: 30 mg Sodium Chloride (0.9 % Sodium Chloride Flush 3 Ml Syringe) 3 ml IVFLUSH QSHIFT [facility] Last Admin: 03/04/25 08:07 Dose: Not Given Sucralfate (Sucralfate Oral Suspension 1 Gm/10 Ml Oral.Susp) 1 gm PO BID [facility] Thiamine HCl (Thiamine Hcl 100 Mg Tablet) 100 mg PO DAILY [facility] Last Admin: 03/04/25 08:52 Dose: 100 mg Allergies Allergies Allergy/AdvReac Type Severity Reaction Status Date / Time No Known Allergies Allergy Verified 03/03/25 16:41 Assessment & Plan Assessment & Plan (1) Alcohol use disorder, severe, dependence: Status: Acute Code(s): F10.20 - Alcohol dependence, uncomplicated Assessment and Plan: pheno taper in place continue thiamine and folic acid Will follow up in AM to discuss plan following withdrawal treatment completion Total time managing care of this patient today _30___ minutes. PMFSH Past Medical History Medical History Pericarditis Pericardial effusion Alcohol use disorder, moderate, dependence MDD (major depressive disorder), recurrent episode, moderate Nausea with vomiting Alcohol use disorder Anxiety and depression History of seizure due to alcohol withdrawal ETOH abuse Family History Family History Other Diabetes Surgical History Surgical History History of surgery H/O endoscopy Social History Social History Household Members: Spouse and Children Housing: House Do you presently have visiting nurse or other home services: No Alcohol intake: current Alcohol intake frequency: 3 or more drinks per day Alcohol type: hard liquor Patient Tobacco Use Status: Former Tobacco user Tobacco use type: Cigarette Smoked in Last 30 Days: No e-Cigarette/Vaping Use: Never Used Second Hand Smoke Exposure: No Use of substances other than those prescribed or required for medical reasons: Yes Substance Use Type: Crack/Cocaine Have you been hit, kicked, punched, or otherwise hurt by someone within the past year? If so, by whom?: No Do you feel safe in your current relationship?: Yes Is there a partner from a previous relationship who is making you feel unsafe now?: No Are you made to feel afraid or neglected: No Are you DNR?: No Advance Directives: Yes Advance Directives on File: Yes Advance Directives Date on File: 11/07/22 Do you have a plan to hurt others: No Plan Recently lost weight without trying: No Poor oral hygiene: No service: No Current occupational status: employed
--- NOTE | 2025-03-04 14:28 | HO.POSTANES ---
Post Anesthesia Evaluation Post Anesthesia Evaluation Date of Service: 03/04/25 Vital Signs: Vital Signs Temp Pulse Resp BP Pulse Ox O2 Del Method O2 Flow Rate 03/04/25 14:18 97.5 F 91 18 144/86 H 95 Room Air 03/04/25 14:05 98.6 F 81 18 130/83 96 Nasal Cannula 2 03/04/25 13:50 98.7 F 81 16 140/83 H 96 Nasal Cannula 2 03/04/25 11:58 78 100 Nasal Cannula 3 03/04/25 11:57 97.6 F 85 18 132/91 H 99 Room Air 03/04/25 07:16 97.8 F 91 18 138/87 98 Room Air 03/04/25 03:25 99.7 F 98 20 131/81 98 Room Air Anesthesia: Monitored Mental Status: Awake Pain Control: Satisfactory Nausea/Vomiting: None Hydration: Adequate Anesthesia-Related Issues: No Anes. Related Issues
--- NOTE | 2025-03-04 18:36 | PC.NURSE ---
Patient is unable to tolerate the 4th and final bag of Potassium, too much burning . I did reach out to the provider and he has not responded back to me. He did receive 3 full bags.
[2025-03-04] MEDS: Sucralfate Oral Suspension 1 GM/10 ML ORAL.SUSP PO (20:24)
[2025-03-05 03:43] VITALS: BP 130/75; PULSE 64; RESP 16; TEMP 37.8; O2SAT 96
[2025-03-05 06:43] LABS: Anion Gap 12 (12-20); Blood Urea Nitrogen 7 mg/dL (9-16); Calcium 8.4 mg/dL (8.4-10.2); Carbon Dioxide 25 mmol/L (22-29); Chloride 103 mmol/L (96-108); Creatinine Clr Calc Pharmacy 135.2; Estimated Glomerular Filt Rate > 60; Magnesium 1.7 mg/dL (1.6-2.6); Potassium 3.3 mmol/L (3.3-5.1); Sodium 137 mmol/L (135-145)
[2025-03-05 07:23] VITALS: BP 132/76; PULSE 70; RESP 18; TEMP 36.8; O2SAT 96
--- NOTE | 2025-03-05 08:45 | HO.POSTANES ---
Post Anesthesia Evaluation Post Anesthesia Evaluation Date of Service: 03/05/25 Vital Signs: Vital Signs Temp Pulse Resp BP Pulse Ox O2 Del Method 03/05/25 07:23 98.3 F 70 18 132/76 96 Room Air 03/05/25 03:43 100.0 F 64 16 130/75 96 Room Air 03/04/25 23:25 100.3 F 89 16 142/84 H 93 Room Air 03/04/25 20:49 100 16 138/88 96 Room Air Anesthesia: Monitored Mental Status: Awake Pain Control: Satisfactory Nausea/Vomiting: None Hydration: Adequate Anesthesia-Related Issues: No Anes. Related Issues
[2025-03-05] MEDS: Sucralfate Oral Suspension 1 GM/10 ML ORAL.SUSP PO (09:10)
--- NOTE | 2025-03-05 09:38 | PM.DS ---
DS: Providers Provider Date of Service: 03/05/25 Date of admission: 03/03/25 18:26 Date of discharge: 03/05/25 Primary care physician: Unknown Physician Consults: 03/03/25 18:42 Addiction Medicine Provider Routine Consulting Provider: Filomena Covering Reason for consultation: Alcohol use disorder 03/04/25 09:50 Consult to Gastroenterology Routine Consulting Provider: Mj Martinez Reason for consultation: abd pain, dysphagia DS: Diagnosis Discharge Diagnosis (1) Dysphagia, pharyngoesophageal phase: Status: Acute (2) Alcohol use disorder, severe, dependence: Status: Acute DS: Summary Hospital Course Hospital Course: HPI: This is a 34-year-old male with pertinent history of alcohol use disorder, chronic pericarditis who presents to the emergency department for concerns of alcohol withdrawal and chest pain. Patient states his last drink was on the morning of presentation. Patient recently lost his job and has been drinking as it is the only thing that helps. Since he stopped drinking, he has been having tremors and anxiety. He does have history of alcohol withdrawal including alcohol withdrawal seizures. Patient states he needs help and is willing for detox. States he also has midsternal chest discomfort which is constant, worse with inspiration, does not relieve with rest and does not exacerbate with exertion. No fever, chills, palpitations, abdominal pain, changes in urinary or bowel habits. Hospital course: Patient was admitted with phenobarb protocol for alcohol withdrawal. Patient's home prednisone and colchicine continued for chronic pericarditis. Patient also complaining of dysphagia during hospital course and Gastroenterology was consulted. He underwent EGD which revealed severe erosive esophagitis, hiatal hernia and gastritis. Gastroenterology recommended pantoprazole twice daily, sucralfate twice daily, magic mouthwash and repeat EGD in 4-6 months. Patient with improvement in symptoms prior to discharge. Addiction Team consulted for alcohol use disorder during hospital course. Patient is cognitively intact and hemodynamically stable prior to discharge. Status at Discharge Functional status at discharge: independent ambulation Overall status at discharge: patient is back to baseline Time Attestation Discharge Coordination Time (in mins): Forty Quality: Safe Use of Opioids Does Pt have an Active Cancer Diagnosis on the Problem List?: No Quality: Stroke Does the patient have a stroke diagnosis?: No Physical Exam Exam: Exam: Middle-aged male lying in bed in no distress Neck supple, no JVD Regular rate and rhythm, S1-S2 heard Regular breath sounds bilaterally, no wheezing or crackles appreciated Abdomen soft nontender, no guarding, no rigidity Patient is awake, alert and oriented to self, place, time and person ; no focal motor deficit Psych: Anxious No pedal edema Vital Signs: Vital Signs: Last Vital Signs Temp 98.3 F 03/05/25 07:23 Pulse 70 03/05/25 07:23 Resp 18 03/05/25 07:23 BP 132/76 03/05/25 07:23 Pulse Ox 96 03/05/25 07:23 O2 Del Method Room Air 03/05/25 07:23 O2 Flow Rate 2 03/04/25 14:05 BMI result Body Mass Index 28.9 DS: Data Data Completed and Pending Completed studies during hospitalization [Text1]: Procedures Detoxification Services for Substance Abuse Treatment (02/11/25) Pending studies at discharge: Pending at discharge 03/04/25 13:40 Surgical [PTH] Routine Labs on day of discharge: Laboratory Results - last 24 hr 03/05/25 06:18 Sodium 137 Potassium 3.3 Chloride 103 Carbon Dioxide 25 Anion Gap 12 BUN 7 L Creatinine 0.83 Estim Creat Clear Calc 135.2 Estimated GFR > 60 Random Glucose 86 Calcium 8.4 Magnesium 1.7 Discharge Plan Discharge Anticipated Discharge Date/Time: 03/05/25 09:31 Patient Disposition: Home, Self-Care Discharge Diagnosis: Alcohol use disorder Chronic pericarditis Dysphagia Referrals: Physician,Unknown J [Primary Care Provider, Medical] - 1 Week Discharge Medications: New Magic Mouthwash Diphen/Lido/Antacid 1:1:1 240 mL suspension 10 ml PO QID Qty: 240 0RF Rx Instructions: Lidocaine Viscous 2 % 80mL; diphenhydramine 12.5 mg/5 mL 80mL; aluminum-mag hydrox-simeth [id number]/5mL 80mL sucralfate [Carafate] 1 gram tablet 1 g PO BID Qty: 30 0RF pantoprazole 40 mg tablet,delayed release (DR/EC) 40 mg PO Q12H Qty: 60 0RF Continued colchicine 0.6 mg tablet 0.6 mg PO BID 28 Days Qty: 56 0RF prednisone 10 mg tablet 30 mg PO DAILY thiamine HCl (vitamin B1) [Vitamin B-1] 100 mg Tablet 100 mg PO DAILY multivitamin Tablet 1 tab PO DAILY melatonin 5 mg Tablet 5 mg PO BEDTIME PRN (Reason: slee[) acetaminophen 500 mg Tablet 1,000 mg PO Q6H PRN (Reason: Pain) Discontinued famotidine 40 mg Tablet 40 mg PO DAILY@0630 ibuprofen 200 mg Tablet 400 mg PO Q6H PRN (Reason: Pain) Discharge Orders: Discharge Order (Routine); Ordered 03/05/25 Ordered By: Mo Prescott Diet: Advance to usual diet Activity on Discharge: As tolerated Stand Alone Forms: Patient Portal Discharge page Print Language: Tamazight Care Plan Goals: Follow-up with PCP within 1 week Establish care with Gastroenterology and repeat EGD in 3-4 months Health Concerns: Alcohol use disorder Chronic pericarditis Severe erosive esophagitis and gastritis Plan of Treatment: Pantoprazole 40 mg b.i.d. Sucralfate 1 g b.i.d. Magic mouthwash 4 times daily Alcohol abstinence Continue home prednisone and colchicine Assessment: As above
--- NOTE | 2025-03-05 09:49 | MHC.CM.PN ---
Pt. has been medically cleared for DC, he will go home via private transport, plan is self care.
== END 2025-03-05 10:52 | disposition home or self-care (01) | DRG 243 ==
LOC: HO.ED 19:06 → HO.EDOVER 19:09 → HO.IMC 19:45
PROVIDERS: Internal Medicine Gastroenterology; Admitting Provider Student in an Organized Health Care Education/Training Program; Emergency Provider Emergency Medicine; Visit Provider Student in an Organized Health Care Education/Training Program
PROC: 0DJ08ZZ Inspection of Upper Intestinal Tract, Via Natural or Artificial Opening Endoscopic (ICD-10-PCS; CPT 43235; principal; 2025-03-04 10:50)
DX: K22.10 Ulcer of esophagus without bleeding (principal); I31.9 Disease of pericardium, unspecified; E87.6 Hypokalemia; K29.20 Alcoholic gastritis without bleeding; R13.19 Other dysphagia; K44.9 Diaphragmatic hernia without obstruction or gangrene; F10.239 Alcohol dependence with withdrawal, unspecified; Z79.52 Long term (current) use of systemic steroids; Z87.891 Personal history of nicotine dependence; Z79.899 Other long term (current) drug therapy
CPT/HCPCS: 36415; 71045; 80048; 83735; 84484; 85025; 87102; 88305; 88342; 93005; 99285; J0131; J1171; J1650; J2003; J2405; J2470; J2560; J2704; J3480; J7120; S9485

== ENCOUNTER → 2025-03-03 16:37 | Outpatient (BNV) | payer OTHER, SELFPAY | PROVIDERS: Admitting Provider Student in an Organized Health Care Education/Training Program; Emergency Provider Emergency Medicine; Visit Provider Internal Medicine Cardiovascular Disease | DX: R00.0 Tachycardia, unspecified (principal) | CPT/HCPCS: 93010 ==

== ENCOUNTER → 2025-03-03 16:44 | Outpatient (BNV) | payer OTHER, SELFPAY | PROVIDERS: Emergency Provider Emergency Medicine; Visit Provider Radiology Diagnostic Radiology | DX: R07.9 Chest pain, unspecified (principal) | CPT/HCPCS: 71045 ==

== ENCOUNTER 2025-03-03 18:26 | Outpatient (BNV) | payer OTHER, SELFPAY | END 2025-03-04 11:43 | PROVIDERS: Admitting Provider Student in an Organized Health Care Education/Training Program; Emergency Provider Emergency Medicine; Visit Provider Internal Medicine Cardiovascular Disease | DX: R07.89 Other chest pain (principal) | CPT/HCPCS: 93010 ==

== ENCOUNTER → 2025-03-03 18:26 | Outpatient (BNV) | payer OTHER, SELFPAY | PROVIDERS: Admitting Provider Student in an Organized Health Care Education/Training Program; Emergency Provider Emergency Medicine; Visit Provider Nurse Practitioner Psychiatric/Mental Health | DX: F10.20 Alcohol dependence, uncomplicated (principal) | CPT/HCPCS: 99222 ==

== ENCOUNTER → 2025-03-03 18:26 | Outpatient (BNV) | payer OTHER, SELFPAY | PROVIDERS: Admitting Provider Student in an Organized Health Care Education/Training Program; Emergency Provider Emergency Medicine; Visit Provider Internal Medicine Gastroenterology | DX: R13.14 Dysphagia, pharyngoesophageal phase (principal); F10.20 Alcohol dependence, uncomplicated; K21.00 Gastro-esophageal reflux disease with esophagitis, without bleeding; K29.70 Gastritis, unspecified, without bleeding | CPT/HCPCS: 43239; 99222 ==

== ENCOUNTER 2025-03-12 07:41 | Inpatient (IN) | payer OTHER, SELFPAY ==
[2025-03-12] VITALS (9 sets, daily range): BP systolic 129–154; BP diastolic 80–107; PULSE 82–144; RESP 12–20; TEMP 36.6–37.2; O2SAT 95–98; BMI 28.9; BMI 30.2
--- NOTE | ~2025-03-12 | XR_ITS ---
EXAMINATION: XR CHEST 1 VIEW HISTORY: chest pain COMPARISON: Comparison is made with the prior examination dated 03/03/2025. FINDINGS: A single AP portable view of the chest performed at 9:02 AM is submitted. The lungs are expanded and clear. There is no pleural effusion, pneumothorax, or pulmonary vascular congestion. The heart is normal in size. The bones are intact. XR/XR chest 1V IMPRESSION: No acute cardiopulmonary abnormality. Electronically signed by: Nikunj Mendez MD 03/12/2025 09:18 AM EDT
--- NOTE | ~2025-03-12 | CT_ITS ---
EXAMINATION: CT HEAD WITHOUT CONTRAST CLINICAL INFORMATION: Fall 3 days ago while intoxicated. COMPARISON: 01/14/2023. TECHNIQUE: Contiguous axial imaging was performed from the skull base to vertex without intravenous administration of contrast. This CT examination was performed using dose optimization techniques as appropriate, variously including the following: *Automated exposure control *Adjustment of mA and/or kV according to patient size (this includes techniques or standardized protocols for targeted exams where dose is matched to indication/reason for exam; i.e. extremities or head) *Use of iterative reconstruction technique FINDINGS: There is no evidence of intracranial hemorrhage or extra-axial fluid collection. There is no mass effect, or edema. No CT evidence of acute territorial infarct. Ventricles, sulci, and cisterns are normal in size and configuration for patient age. No hydrocephalus. No midline shift. Negative hyperdense MCA sign. Negative insular ribbon sign. No white matter attenuation abnormalities. Normal pituitary. Globes and orbital contents image normally. No extracranial soft tissue abnormalities. The paranasal sinuses, mastoid air cells, and tympanic cavities are normally aerated. No suspicious bony abnormalities. There are no acute fractures evident. CT/CT Head for ICH IMPRESSION: No acute intracranial abnormality. Electronically signed by: Alonso Giles MD 03/12/2025 10:35 AM EDT
--- OUTSIDE RECORDS SUMMARY | 2025-03-12 07:59 | XMS_ITS | Clinical Summary ---
Author Organization [facility] Address [address] [place] [phone] Phone Care Team Providers Care Roentgenology Teacher Name Role Phone Wali Long NP Primary [...] topic Medical Devices Not on file Insurance [facility] CONNECTORCARE DIRECT HEALTH SAFETY NET PARTIAL CONNECTORCARE DIRECT [facility] Address: [facility] [address] [place] [address] HEALTH SAFETY NET PARTIAL CONNECTORC[employer] DIRECT HEALTH SAFETY NET PARTIAL Member Subscriber Plan / Payer (Ef fective 2021-Present) Name:Jack Burns Relation to Subscriber:Self Name:[place] Payer ID:Not on file Group ID:Not on file Type:Medicaid Address: [place] [id number] CONNECTORCARE DIRECT [facility] SAFETY NET PARTIAL Member Subscriber Plan / Payer (Ef fective 2021-Present) Name:Grant Jack Relation to Subscriber:Self Name:GrantJack Payer ID:Not on file Group ID:Not on file Type:Medicaid Address: [place] [id number] CONNECTORCARE DIRECT [facility] SAFETY NET PARTIAL CONNECTORCARE DIRECT [facility] SAFETY NET PARTIAL [place] [employer] CONNECTORCARE DIRECT [place] [address] [facility] CONNECTORCARE DIRECT [facility] SAFETY NET PARTIAL [facility]ARE DIRECT [place] [phone] [facility] SAFETY NET PARTIAL Care Teams Roentgenology Teacher Relationship Specialty Start Date End Date Wali Long NP [address] [facility] [place] [id number] [email or web address] PCP - General Family Medicine 11/11/21 Additional Source Comments The information contained in this document represents components of the legal health record. It is not the complete legal health record.[facility]
--- NOTE | 2025-03-12 08:25 | ECG_ITS ---
Test Reason : chest pain Blood Pressure : */* mmHG Vent. Rate : 115 BPM Atrial Rate : 115 BPM P-R Int : 140 ms QRS Dur : 84 ms QT Int : 328 ms P-R-T Axes : 44 48 53 degrees QTcB Int : 453 ms Sinus tachycardia Otherwise normal ECG When compared with ECG of 04-Mar-2025 11:53, No significant change was found Referred By: Sol Schneider Electronically Signed By: DANIELLE MARION
--- NOTE | 2025-03-12 08:25 | ED.GENADULT ---
HPI - General Adult General Chief complaint: General Medical Stated complaint: Paracletes, Operation last week, cant eat or drink Time Seen by Provider: 03/12/25 08:25 Source: patient, RN notes reviewed and old records reviewed Mode of arrival: ambulatory Limitations: other History of Present Illness ED Provider: Sol Schneider PA-C HPI narrative: 34 year old M with PMH sig for alcohol dependence classified as severe and chronic pericarditis and recent dx of hiatal hernia, erosive gastritis (03/03/25) presenting to the emergency department today concern her for being in active withdrawal. Patient's last drink was last night. He typically drinks almost a case of beer daily however starting this past Monday 5 days ago he did 40 shots followed by 3 sleeves the next day along with the alcohol that he drinks regularly. After his last drink last night several hours later he started to feel of tremors start to shake and sweats as well as have increase in chest pains Lasix and started to have both auditory and visual hallucinations . He reports auditory sounds sounds like generalized nonverbal shouts by ringing in his ears. Visually he seeing lines such as what he describes this and crawling around. Does not feel like it is crawling on his skin. He denies any HI SI or AVH. Reports his chest pain feels tight but it ?always feels this way ?. When he was given IV diazepam when he 1st arrived lifting tremorous his pain went away completely for about 20 minutes or so. He denies feeling short of breath reports having epigastric pain which also feels chronic to him. Feels worse since last night. He did vomit once nonbilious nonbloody. He has never been told that he has kidney liver or heart failure. Denies any respiratory disorders. No diarrhea. Denies having a headache but is the body just feel sort of him. Patient does report that a few days ago while intoxicated he did fall he was at home and it was on ground level but he can not recall the events otherwise around it. He is not on any anticoagulation. He has experienced withdrawal several times including DTs and seizures. Denies fevers, coughin, changes in urinary/ bowel. It has been a few months since patient last saw cardiology but they have him dosed at 30 mg of prednisone daily for his chronic pericarditis. He has not taken it since Monday. He is established with based a cardiology. Patient was last admitted here for alcohol withdrawal last Saturday 03/03 admitted for 2 days then discharged. A week prior to that as well patient has been here 7x for this since December 2024. Every time patient tries to stop drinking he relapses. The longest he has been able to stay at a rehab has been for 2 weeks as it is only what his insurance will cover. During patient is admitted on 03/03 after his endoscopy gastroenterology recommended that he take pantoprazole twice daily sucralfate twist daily as well as magic mouthwash daily as needed and to repeat his endo and 4-6 months. He has not taken any of these medications since Monday. Home stressors include: loss of job, managing family including and children. Related Data Home Medications ?Medication ?Instructions ?Recorded ?Confirmed prednisone 10 mg tablet 30 mg PO DAILY 12/28/24 03/03/25 thiamine HCl (vitamin B1) 100 mg 100 mg PO DAILY 02/21/25 03/03/25 tablet (Vitamin B-1) acetaminophen 500 mg tablet 1,000 mg PO Q6H PRN Pain 03/03/25 03/03/25 melatonin 5 mg tablet 5 mg PO BEDTIME PRN slee[ 03/03/25 03/03/25 multivitamin 1 tab PO DAILY 03/03/25 03/03/25 Previous Rx's ?Medication ?Instructions ?Recorded colchicine 0.6 mg tablet 0.6 mg PO BID 4 weeks #56 tabs 05/16/24 Magic Mouthwash 10 ml PO QID #240 mL 03/05/25 Diphen/Lido/Antacid 1:1:1 240 mL suspension pantoprazole 40 mg tablet,delayed 40 mg PO Q12H #60 tabs 03/05/25 release sucralfate 1 gram tablet (Carafate) 1 g PO BID #30 tabs 03/05/25 Allergies Allergy/AdvReac Type Severity Reaction Status Date / Time No Known Allergies Allergy Verified 03/12/25 07:48 Review of Systems Review of Systems: Yes all other systems are reviewed and are negative ENT: Reports Normal hearing present Neurologic: Reports Normal hearing present [facility] Past Medical History Attestation statement: The following information was validated with the patient. Source: old records reviewed and nursing notes reviewed Medical History Pericarditis Pericardial effusion Alcohol use disorder, moderate, dependence MDD (major depressive disorder), recurrent episode, moderate Nausea with vomiting Alcohol use disorder Anxiety and depression History of seizure due to alcohol withdrawal ETOH abuse Surgical History (Updated 03/05/25 @ 11:02 by Alina Batista) History of surgery H/O endoscopy Family History Family History Other Diabetes Social History Social History Household Members: Spouse and Children Housing: House Do you presently have visiting nurse or other home services: No Alcohol intake: current Alcohol intake frequency: 3 or more drinks per day Alcohol type: hard liquor Patient Tobacco Use Status: Former Tobacco user Tobacco use type: Cigarette e-Cigarette/Vaping Use: Never Used Second Hand Smoke Exposure: No Substance Use Type: Crack/Cocaine Advance Directives: Yes Advance Directives on File: Yes Advance Directives Date on File: 11/07/22 Do you have a plan to hurt others: No Plan service: No Current occupational status: employed Physical Exam ED Vital Signs: Vital Signs - 24 hr 03/12/25 07:44 03/12/25 08:09 03/12/25 10:32 Temperature 98 F 98.2 F 98.0 F Pulse Rate 144 H 128 H 102 H Respiratory Rate 18 20 12 Blood Pressure 154/80 H 152/107 H 138/97 H Pulse Oximetry 98 98 95 Oxygen Delivery Method Room Air Room Air Room Air 03/12/25 11:53 Temperature 98.1 F Pulse Rate 99 Respiratory Rate 14 Blood Pressure 139/95 H Pulse Oximetry 95 Oxygen Delivery Method Room Air BMI result Body Mass Index 30.2 Const General: cooperative, well developed, alert, anxious and other (uncomfortable appearing) Nutritional Appearance: overweight Orientation/consciousness: patient oriented x3 Limitations: other limitations (active EtOH widhdrawal) HENMT Head: Yes normal to inspection, Yes No palpable skull fracture present and Yes normocephalic Ears: hearing grossly normal bilaterally General nose exam: Normal external nose present Face and sinus: Yes normal facial exam Mouth: lip normal, tongue normal (White coating with erythematous base along dorsal tongue), oropharynx normal and Abnormal oral and palatal mucosa present Teeth and gingiva: dentition normal Throat: Yes posterior oropharynx normal Eyes General: appearance normal, both eyes and all related structures Periorbital: periorbital findings normal Eyelids: Yes eyelids normal Conjunctivae: conjunctivae normal Sclerae: sclerae normal Corneas: corneas normal Pupils: Equal, round and reactive pupils present EOM: EOMs intact bilaterally Neck Neck: Yes normal visual inspection, Yes full ROM, Yes no lymphadenopathy and Yes other (No midline tenderness step-offs or deformities of entire spine) Lymphatic: no lymphadenopathy noted Chest Chest palpation & inspection: normal inspection of the chest and tenderness (Epigastric anterior chest wall tenderness) Resp Effort & Inspection: normal respiratory effort and able to speak in complete sentences Auscultation: clear to auscultation bilaterally Cardio Jugular venous distension: no JVD Palpation: normal PMI Rate: tachycardic Rhythm: regular rhythm Peripheral pulses: Peripheral pulses 2+ throughout GI Inspection: Yes normal to inspection Percussion: Yes normal to percussion Auscultation: normal bowel sounds General: Yes no CVA tenderness Back/Spine/Pelvis Back: no CVA tenderness Skin General skin exam: no rashes or lesions noted Neuro Other: No pronator drift General: patient oriented x3, moves all extremities, Normal light touch and pain sensation, deep tendon reflexes 2+ bilaterally and Unable to assess gait Cranial nerves: Yes CN's II-XII intact bilaterally, Yes Facial sensation intact/muscles of mastication intact, Yes Equal, round and reactive pupils present, Yes Bilaterally intact EOM present, Yes Nystagmus not present, Yes Midline tongue present and Yes Normal hearing present Cognition (Neuro): normal cognition Gait exam (Neuro): Unable to assess gait Motor exam (neuro): 5/5 motor strength present throughout, Pronator motor function not present and Motor fasciculations not present (Shaking tremors noted of whole-body no asterixis) Sensory Exam: Normal double simultaneous stimulation for sensation Coordination: [id number] test normal Course Course Course Narrative: 928: critically low lab result rec'd via telephone: potassium 2.6, on monitor EKG without U waves, will replete via IV. Medications Administered Generic Name Dose Route Start Last Admin Trade Name Freq PRN Reason Stop Dose Admin Famotidine 20 mg 03/12/25 09:00 03/12/25 11:21 Famotidine/Pf 20 Mg/2 Ml Vial IVPUSH 20 mg BID EL Administration Potassium Chloride 10 meq in 100 mls @ 100 mls/hr 03/12/25 11:15 03/12/25 12:59 Potassium Chloride/H20 IV 03/12/25 15:14 100 mls/hr Q1H EL Administration Magnesium Sulfate 2 gm in 50 mls @ 25 mls/hr 03/12/25 11:26 03/12/25 13:01 Magnesium Sulfate/H2o IV 03/12/25 13:25 Infused ONCE ONE Infusion Multivitamins/Vitamin C 1 tab 03/12/25 09:00 03/12/25 09:13 Multivitamin Tablet PO 03/15/25 08:59 Not Given DAILY EL Phenobarbital Sodium 200 mg 03/12/25 12:00 03/12/25 11:36 Phenobarbital Sodium 130 Mg/Ml Vial Im Q3hx2 IM 03/12/25 15:01 200 mg Q3H EL Administration Protocol Discontinued Medications Generic Name Dose Route Start Last Admin Trade Name Freq PRN Reason Stop Dose Admin Diazepam 10 mg 03/12/25 08:25 03/12/25 08:35 Diazepam 10 Mg/2 Ml Cartridge IVPUSH 03/12/25 08:26 10 mg STAT STA Administration Diazepam 10 mg 03/12/25 11:32 03/12/25 11:37 Diazepam 10 Mg/2 Ml Cartridge IVPUSH 03/12/25 11:33 10 mg STAT STA Administration Lactated Ringer's 1,000 mls @ 999 mls/hr 03/12/25 08:38 03/12/25 11:53 Lr IV 03/12/25 09:38 Infused .Q1H1M ONE Infusion Thiamine HCl 100 mg/ Sodium 101 mls @ 208 mls/hr 03/12/25 08:39 03/12/25 11:52 Chloride IV 03/12/25 09:08 Infused ONCE ONE Infusion Folic Acid 1 mg/ Sodium 50.2 mls @ 100.4 mls/hr 03/12/25 08:39 03/12/25 11:52 Chloride IV 03/12/25 09:08 Infused ONCE ONE Infusion Potassium Chloride 40 meq in 100 mls @ 100 mls/hr 03/12/25 09:28 03/12/25 11:22 Potassium Chloride/H20 IV 03/12/25 10:27 Not Given ONCE ONE Lactated Ringer's 1,000 mls @ 999 mls/hr 03/12/25 11:32 03/12/25 11:46 Lr IV 03/12/25 12:32 999 mls/hr .Q1H1M ONE Administration Lidocaine HCl 15 ml 03/12/25 09:45 03/12/25 11:23 Lidocaine Hcl Viscous 2 % 15 Ml Solution MUCOUS MEM 03/12/25 09:46 15 ml ONCE ONE Administration Morphine Sulfate 2 mg 03/12/25 12:17 03/12/25 12:21 Morphine Sulfate 2 Mg/Ml Cartridge IVPUSH 03/12/25 12:18 2 mg ONCE ONE Administration Protocol Ondansetron HCl 4 mg 03/12/25 08:38 03/12/25 08:54 Ondansetron Hcl 4 Mg/2 Ml Vial IVPUSH 03/12/25 08:39 4 mg ONCE ONE Administration Ondansetron HCl 4 mg 03/12/25 12:17 03/12/25 12:21 Ondansetron Hcl 4 Mg/2 Ml Vial IVPUSH 03/12/25 12:18 4 mg ONCE ONE Administration Pantoprazole Sodium 40 mg 03/12/25 08:38 03/12/25 09:00 Pantoprazole Sodium 40 Mg/10 Ml Vial IVPUSH 03/12/25 08:39 40 mg ONCE ONE Administration Phenobarbital Sodium 275 mg 03/12/25 09:00 03/12/25 09:41 Phenobarbital Sodium 130 Mg/Ml Im Once IM 03/12/25 09:01 275 mg ONCE ONE Administration Protocol Medical Decision Making Medical Decision Making MDM Narrative: 34-year-old male with past medical history significant for severe alcohol dependence with recurrent withdrawals, gastritis, chronic pericarditis and erosive gastritis with a hiatal hernia presenting to emergency department today and alcohol withdrawal. CIWA score of 26. He was seen immediately at bedside and was noted to have tremulous shivers. 10 mg of IV diazepam was immediately ordered while assessing him at bedside GCS 15 he has no AOx4. Delirium tremens is not present at this time. IV fluids along with EKG and continuous cardiac monitoring along with point of care glucose was ordered. At this point suspect mainly alcohol withdrawal with anticipated electrolyte imbalance given his chronic EtOH use. LR started. Phenobarb ordered. POC 115, reassuring and less likely to be metabolic acidosis due to alcohol use. EKG showing sinus tachycardia. On exam he also was noted to have tongue thrush infection of his tongue. He has continuous chest discomfort and is nauseous Zofran ordered along with Protonix. After receiving IV diazepam patient states that his pain on the ultimately went away completely but as soon as it wore off symptoms have returned and continued. Order PO lidocaine viscous. Chest x-ray is unremarkable. No friction rub is heard. Attempted bedside echo however with his fasciculations unable to obtain adequate imaging to interpret for obvious pericardial effusion but there is no muffled heart sounds less likely. No electrical alternans to suggest underlying pericardial effusion. Patient expresses his desire to stop drinking and is willing to stay for withdrawal. He expresses his desire to stay longer rehab but can not afford the [id number] so stays as long as his insurance allows. him which is 2 weeks Patient with multiple electrolyte imbalances. We will repeat magnesium as well as potassium. Metabolic alkalosis present with early respiratory compensation. Head CT negative. Troponin negative, ACS ruled out. 1135 am: Consult for admit placed. 1243 pm: Spoke to hospitalist team who accepted to inpatient level of care. Differential Diagnosis Differential Diagnoses: The differential diagnosis associated with the presentation includes ICH, Alcohol withdrawal seizures, alcohol withdrawal, delirium tremens, pericarditis, metabolic dysfunction, dehydration Admission/Observation Consideration of admission/observation: Escalation of care including admission/observation considered Consult Healthcare Provider Management of the patient was discussed with: Hospitalist Lab Data [facility] Lab Attestation statement: I reviewed the patient's lab results. 03/12/25 08:59 03/12/25 09:00 Labs: Lab Results 03/12/25 03/12/25 03/12/25 Range/Units 08:26 08:59 09:00 WBC 13.8 H (4.8-10.8) X10*3/uL RBC 4.54 L (4.60-5.80) X10*6/uL Hgb 13.8 L (14.0-18.0) g/dl Hct 39.4 L (42.0-52.0) % MCV 86.8 (80.0-98.0) fL MCH 30.4 (27.0-33.0) pg MCHC 35.0 (31.0-36.0) g/dl RDW 13.6 (11.0-16.0) % Plt Count 506 H (160-400) X10*3/uL MPV 8.6 L (9.4-12.4) fL Immature Gran % (Auto) 0.9 H (0.0-0.4) % Neut % (Auto) 66.6 (45-73) % Lymph % (Auto) 19.3 L (20-40) % [place] % (Auto) 12.8 H (2-11) % Eos % (Auto) 0.1 (0-4) % Baso % (Auto) 0.3 (0-2) % Lymph # (Auto) 2.7 (1.2-4.9) X10*3/uL [place] # (Auto) 1.8 H (0.1-1.2) X10*3/uL Eos # (Auto) 0.0 (0.0-0.4) X10*3/uL Baso # (Auto) 0.0 (0.0-0.2) X10*3/uL Abs Immat Gran (auto) 0.12 H (0.00-0.03) X10*3/uL Absolute Neuts (auto) 9.2 H (2.0-8.3) x10*3/uL Absolute Nucleated RBC 0.000 (0.0-0.012) X10*3/uL Nucleated RBC % (auto) 0.0 (0.0-0.2) /100WBC Smear Tech's Comments VERIFIED VBG pH (7.32-7.43) VBG pCO2 mmHg VBG pO2 mmHg VBG HCO3 (22-26) mmol/L VBG O2 Saturation % VBG Base Excess mmol/L Sodium 139 (135-145) mmol/L Potassium 2.6 L* D (3.3-5.1) mmol/L Chloride 91 L (96-108) mmol/L Carbon Dioxide 31 H (22-29) mmol/L Anion Gap 20 (12-20) BUN 8 L (9-16) mg/dL Creatinine 0.90 (0.5-1.4) mg/dL Estim Creat Clear Calc 127.3 Estimated GFR > 60 POC Glucose 115 (60-115) mg/dL Random Glucose 104 (60-115) mg/dL Calcium 8.4 (8.4-10.2) mg/dL Magnesium 1.5 L (1.6-2.6) mg/dL Total Bilirubin 0.3 (0.0-1.0) mg/dL AST 74 H (5-37) U/L ALT 91 H (0-40) U/L Alkaline Phosphatase 78 (39-117) U/L Troponin I High Sens (<3.5-35.0) ng/L Total Protein 6.1 L (6.5-8.0) g/dL Albumin 3.7 (3.5-5.0) g/dL Lipase 18 (8-78) U/L Urine Opiates Screen (Not Detect) Ur Buprenorphine Scrn (Not Detect) ng/mL Ur Oxycodone Screen (Not Detect) ng/mL Urine Methadone Screen (Not Detect) ng/mL Urine Fentanyl Screen (Not Detect) Ur Barbiturates Screen (Not Detect) Ur Phencyclidine Scrn (Not Detect) Ur Amphetamines Screen (Not Detect) U Benzodiazepines Scrn (Not Detect) Urine Cocaine Screen (Not Detect) U Marijuana (THC) Screen (Not Detect) 03/12/25 03/12/25 03/12/25 Range/Units 09:05 11:33 12:10 WBC (4.8-10.8) X10*3/uL RBC (4.60-5.80) X10*6/uL Hgb (14.0-18.0) g/dl Hct (42.0-52.0) % MCV (80.0-98.0) fL MCH (27.0-33.0) pg MCHC (31.0-36.0) g/dl RDW (11.0-16.0) % Plt Count (160-400) X10*3/uL MPV (9.4-12.4) fL Immature Gran % (Auto) (0.0-0.4) % Neut % (Auto) (45-73) % Lymph % (Auto) (20-40) % [place] % (Auto) (2-11) % Eos % (Auto) (0-4) % Baso % (Auto) (0-2) % Lymph # (Auto) (1.2-4.9) X10*3/uL [place] # (Auto) (0.1-1.2) X10*3/uL Eos # (Auto) (0.0-0.4) X10*3/uL Baso # (Auto) (0.0-0.2) X10*3/uL Abs Immat Gran (auto) (0.00-0.03) X10*3/uL Absolute Neuts (auto) (2.0-8.3) x10*3/uL Absolute Nucleated RBC (0.0-0.012) X10*3/uL Nucleated RBC % (auto) (0.0-0.2) /100WBC Smear Tech's Comments VBG pH 7.53 H (7.32-7.43) VBG pCO2 44 mmHg VBG pO2 73 mmHg VBG HCO3 37 H (22-26) mmol/L VBG O2 Saturation 94.0 % VBG Base Excess 13.4 mmol/L Sodium (135-145) mmol/L Potassium (3.3-5.1) mmol/L Chloride (96-108) mmol/L Carbon Dioxide (22-29) mmol/L Anion Gap (12-20) BUN (9-16) mg/dL Creatinine (0.5-1.4) mg/dL Estim Creat Clear Calc Estimated GFR POC Glucose (60-115) mg/dL Random Glucose (60-115) mg/dL Calcium (8.4-10.2) mg/dL Magnesium (1.6-2.6) mg/dL Total Bilirubin (0.0-1.0) mg/dL AST (5-37) U/L ALT (0-40) U/L Alkaline Phosphatase (39-117) U/L Troponin I High Sens < 2.7 (<3.5-35.0) ng/L Total Protein (6.5-8.0) g/dL Albumin (3.5-5.0) g/dL Lipase (8-78) U/L Urine Opiates Screen Not Detected (Not Detect) Ur Buprenorphine Scrn Not Detected (Not Detect) ng/mL Ur Oxycodone Screen Not Detected (Not Detect) ng/mL Urine Methadone Screen Not Detected (Not Detect) ng/mL Urine Fentanyl Screen Not Detected (Not Detect) Ur Barbiturates Screen POSITIVE H (Not Detect) Ur Phencyclidine Scrn Not Detected (Not Detect) Ur Amphetamines Screen Not Detected (Not Detect) U Benzodiazepines Scrn POSITIVE H (Not Detect) Urine Cocaine Screen Not Detected (Not Detect) U Marijuana (THC) Screen POSITIVE H (Not Detect) Independent Interpretation I performed an independent interpretation of an: EKG, Plain X-Ray and CT Scan Interpretation: sinus tachycardia, no ischemia or U waves noted. NO ICH, Normal cxr Radiology Impression Discussion of test interpretation with radiology: I have reviewed the radiologist's reading. Independent Historian Clinical information obtained from an independent historian. History obtained from or confirmed by: Spouse via telephone. External Record Review External record reviewed: Inpatient record Tests considered The following testing was considered but not selected: CTA, d-dimer had there been suspicion for PE. CT abd pelvis had there been concern for acute abdomen Prescription Management I considered prescription management with: Pain Medication Critical Care Time Critical Care Time Critical Care Time: Yes Total Critical Care Time: 60 Attestation: 60 minutes spent evaluating the patient, which may include speaking with hospital personnel and family, interpreting studies, discussing the case with consultants or admitting teams, retrieving data and reviewing charts, documenting the visit, and performing bundled procedures independent of separately billed procedures. ? Discharge Plan Discharge Clinical Impression: Alcohol use disorder, severe, dependence, Hypokalemia, Alcohol withdrawal syndrome, Hypomagnesemia, Alkalosis, metabolic, Thrush, oral, Acute erosive gastritis Patient Disposition: Admitted As Inpatient
[2025-03-12 08:30] LABS: Glucose, Whole Blood 115 mg/dL (60-115)
[2025-03-12] MEDS: diazePAM 10 MG/2 ML CARTRIDGE IVPUSH ×2 (08:35→11:37)
[2025-03-12] MEDS: Lactated Ringers 1,000 ML 999 ML IV ×2 (08:40→11:46)
[2025-03-12 09:08] LABS: Hematocrit 39.4 % (42.0-52.0); Hemoglobin 13.8 g/dl (14.0-18.0); Imm Gran Abs Auto 0.12 X10*3/uL (0.00-0.03); Imm Gran Pct Auto 0.9 % (0.0-0.4); Lymphocytes Absolute Auto 2.7 X10*3/uL (1.2-4.9); MANUAL DIFF FLAG SCAN; Mean Corpuscular HGB Conc 35.0 g/dl (31.0-36.0); Mean Corpuscular Hemoglobin 30.4 pg (27.0-33.0); Mean Corpuscular Volume 86.8 fL (80.0-98.0); NRBC Abs Auto 0.000 X10*3/uL (0.0-0.012); NRBC Pct Auto 0.0 /100WBC (0.0-0.2); Platelet Count 506 X10*3/uL (160-400); Red Blood Count 4.54 X10*6/uL (4.60-5.80); SCAN SMEAR FLAG 1; White Blood Count 13.8 X10*3/uL (4.8-10.8)
[2025-03-12 09:11] LABS: VBG HCO3 37 mmol/L (22-26); VBG O2 % Saturation 94.0 %
[2025-03-12 09:13] LABS: Venous Blood Gas Refer to POC result
[2025-03-12] MEDS: Thiamine HCL 100 MG in 0.9 % Sodium Chloride 100 ML 208 MG IV (09:16)
[2025-03-12 09:28] LABS: Alanine Aminotransferase 91 U/L (0-40); Albumin Level 3.7 g/dL (3.5-5.0); Alkaline Phosphatase 78 U/L (39-117); Anion Gap 20 (12-20); Aspartate Amino Transferase 74 U/L (5-37); Blood Urea Nitrogen 8 mg/dL (9-16); Calcium 8.4 mg/dL (8.4-10.2); Carbon Dioxide 31 mmol/L (22-29); Chloride 91 mmol/L (96-108); Creatinine Clr Calc Pharmacy 127.3; Estimated Glomerular Filt Rate > 60; Lipase 18 U/L (8-78); Magnesium 1.5 mg/dL (1.6-2.6); Potassium 2.6 mmol/L (3.3-5.1); Sodium 139 mmol/L (135-145); Total Protein 6.1 g/dL (6.5-8.0)
[2025-03-12] MEDS: PHENobarbitaL sodium 130 MG/ML IM ONCE 275 MG IM (09:41)
[2025-03-12] MEDS: Lidocaine HCl Viscous 2 % 15 ML SOLUTION MUCOUS MEM (11:23)
[2025-03-12] MEDS: PHENobarbitaL sodium 130 MG/ML VIAL IM Q3Hx2 200 MG IM ×2 (11:36→16:19)
[2025-03-12] MEDS: Magnesium Sulfate/H2O 2 GM/50 ML PIGGYBACK IV (11:37)
[2025-03-12] MEDS: Potassium Chloride/H20 10 MEQ/100 ML PIGGYBACK 100 MEQ IV ×4 (11:50→14:58)
[2025-03-12 12:06] LABS: Troponin-I High Sensitivity < 2.7 ng/L (<3.5-35.0)
--- NOTE | 2025-03-12 12:17 | ECG_ITS ---
Test Reason : chest pain Blood Pressure : */* mmHG Vent. Rate : 94 BPM Atrial Rate : 94 BPM P-R Int : 154 ms QRS Dur : 90 ms QT Int : 380 ms P-R-T Axes : 52 29 43 degrees QTcB Int : 475 ms Normal sinus rhythm Normal ECG When compared with ECG of 12-Mar-2025 08:35, No significant change was found Referred By: Sol Schneider Electronically Signed By: DANIELLE MARION
[2025-03-12 12:38] LABS: Cannabinoid Screen Urine POSITIVE (Not Detect)
[2025-03-12] MEDS: Dextrose 5 % and Lactated Ring 1,000 ML 125 ML IVCONT ×2 (14:57→23:47)
--- NOTE | 2025-03-12 15:46 | PHA.MEDREC ---
Addendum entered by Rylan Cortes PharmD 03/12/25 15:58: reviewed Original Note: Pharmacy Consult ? Medication Reconciliation Pharmacy has completed the medication reconciliation. Spoke with pt and he confirmed his medications. Pt taking Prednisone 30mg once daily; pt suppose to be tapering but stated when he starts tapering to lower doses he starts getting body pains and starts feeling more sick. Pt has not been able to confirm any of his medications since Monday,
--- NOTE | 2025-03-12 16:26 | PC.NURSE ---
Patient reports improved withdrawal symptoms, states pain medication improved chest pain related to pericarditis
--- NOTE | 2025-03-12 18:08 | PM.IMHP ---
History of Present Illness Date of Service: 03/12/25 Attending physician on admission: Rubina Ashby Chief Complaint: Abdominal pain Jack Burns is a 34 years old man with past medical history significant for alcohol abuse, pancreatitis and pericarditis on colchicine and prednisone presents to the emergency department complaining of upper abdominal pain since Monday associated with multiple events of nausea nonbloody vomiting. He also has been experiencing some diarrhea. He also complained of chest pain that increases with inspiration. He denied cough, headache, palpitation fever or chills. He has been having hallucinations. He alcohol daily: 35-40 nips, 12 beers. He smoked marijuana in occasions. Denied illicit drug use or tobacco smoking. Patient underwent a recent EGD that showed severe erosive esophagitis, hiatal hernia and gastritis; biopsies negative for H pylori. In the ED, he was found to have stable vital signs however, quite tachycardic. Blood workup showed leukocytosis of 13.8, hemoglobin is 13.8 platelets 506. PH is 7.53, CO2 37. There is hypokalemia, 2.6, chloride 91, CO2 31 and sodium 139. BUN is 8 and creatinine 0.90. Magnesium is 1.5. Transaminases are elevated. Alk-phos, bilirubin and lipase are normal. Troponin is < 2.7. Urine drug screen is positive for barbiturates, benzos and marijuana. ECG showed normal sinus rhythm, heart rate 98 beats per minute. ED tx: Valium 20 mg IV, Zofran 12 mg IV total, famotidine 20 mg IV, Protonix 40 mg IV, phenobarbital protocol initiated. Lactated Ringer's 1 L, morphine 2 mg IV Review of Systems Review of Systems: All 12 systems were reviewed and normal except as noted in HPI. [facility] Medical History Pericarditis Pericardial effusion Alcohol use disorder, moderate, dependence MDD (major depressive disorder), recurrent episode, moderate Nausea with vomiting Alcohol use disorder Anxiety and depression History of seizure due to alcohol withdrawal ETOH abuse Family History Other Diabetes Surgical History (Updated 03/05/25 @ 11:02 by Alina Batista) History of surgery H/O endoscopy Social History Household Members: Spouse and Children Housing: House Do you presently have visiting nurse or other home services: No Alcohol intake: current Alcohol intake frequency: 3 or more drinks per day Alcohol type: hard liquor Patient Tobacco Use Status: Former Tobacco user Tobacco use type: Cigarette e-Cigarette/Vaping Use: Never Used Second Hand Smoke Exposure: No Substance Use Type: Crack/Cocaine Advance Directives: Yes Advance Directives on File: Yes Advance Directives Date on File: 11/07/22 Do you have a plan to hurt others: No Plan service: No Current occupational status: employed Meds Allergies Allergy/AdvReac Type Severity Reaction Status Date / Time No Known Allergies Allergy Verified 03/12/25 07:48 Active Medications: Current Medications Acetaminophen (Acetaminophen 325 Mg Tablet) 650 mg PO Q6H PRN PRN Reason: Pain, Mild 1-3,fever,headache Calcium Carbonate (Calcium Carbonate 750 Mg Tab.Chew) 750 mg PO Q4H PRN PRN Reason: Heartburn Enoxaparin Sodium (Enoxaparin Sodium 40 Mg/0.4 Ml Syringe) 40 mg SUBCUT Q24H [facility] Hydromorphone HCl (Hydromorphone Hcl 1 Mg/Ml Syringe) 1 mg IVPUSH Q3H PRN; Protocol PRN Reason: Pain, Severe (Pain Scale 7-10) Last Admin: 03/12/25 14:58 Dose: 1 mg Dextrose/Lactated Ringer's (D5lr) 1,000 mls @ 125 mls/hr IVCONT .Q8H [facility] Last Admin: 03/12/25 14:57 Dose: 125 mls/hr Magnesium Hydroxide (Milk Of Magnesia 30 Ml Oral.Susp) 30 ml PO DAILY PRN PRN Reason: Constipation Melatonin (Melatonin 3 Mg Tablet) 6 mg PO BEDTIME PRN PRN Reason: Insomnia Multivitamins/Vitamin C (Multivitamin Tablet) 1 tab PO DAILY [facility] Stop: 03/15/25 08:59 Last Admin: 03/12/25 09:13 Dose: Not Given Ondansetron HCl (Ondansetron Hcl 4 Mg/2 Ml Vial) 4 mg IVPUSH Q6H PRN PRN Reason: Nausea and Vomiting Pantoprazole Sodium (Pantoprazole Sodium 40 Mg/10 Ml Vial) 40 mg IVPUSH DAILY@0630 [facility] Pharmacy Consult (Consult Rx Etoh Phenob Im/Po) 1 each MISCELLANE ONCE PRN; Protocol PRN Reason: Consult order Phenobarbital (Phenobarbital 15 Mg Tablet) 45 mg PO BID [facility]; Protocol Stop: 03/14/25 09:01 Phenobarbital (Phenobarbital 15 Mg Tablet) 15 mg PO BID [facility]; Protocol Stop: 03/16/25 09:01 Phenobarbital (Phenobarbital 15 Mg Tablet) 15 mg PO DAILY [facility]; Protocol Stop: 03/18/25 09:01 Sodium Chloride (0.9 % Sodium Chloride Flush 3 Ml Syringe) 3 ml IVFLUSH QSHIFT [facility] Last Admin: 03/12/25 15:05 Dose: Not Given Home Medications ?Medication ?Instructions ?Recorded ?Confirmed ?Last Taken ?Type prednisone 10 mg tablet 30 mg PO DAILY 12/28/24 03/12/25 03/07/25 History thiamine HCl (vitamin B1) 100 mg 100 mg PO DAILY 02/21/25 03/12/25 03/07/25 History tablet (Vitamin B-1) acetaminophen 500 mg tablet 500 mg PO Q6H PRN Pain 03/03/25 03/12/25 Unknown History multivitamin 1 tab PO DAILY 03/03/25 03/12/25 03/07/25 History cyanocobalamin (vitamin B-12) 1,000 mcg PO DAILY 03/12/25 03/12/25 03/07/25 History 1,000 mcg tablet (Vitamin B-12) lidocaine HCl 2 % mucosal solution 1 appl PO DAILY PRN Pain 03/12/25 03/12/25 Unknown History (Lidocaine Viscous) pantoprazole 40 mg tablet,delayed 40 mg PO BID@0630,1630 03/12/25 03/12/25 03/07/25 History release Physical Exam Vital Signs and Narrative: Vital Signs: Last Vital Signs Temp 97.9 F 03/12/25 16:44 Pulse 90 03/12/25 16:44 Resp 19 03/12/25 16:44 BP 139/95 H 03/12/25 16:44 Pulse Ox 98 03/12/25 16:44 O2 Del Method Room Air 03/12/25 16:44 BMI result Body Mass Index 30.2 Constitutional - Awake and Alert. Looks uncomfortable due to abdominal pain. HEENT - PER, EOMI Heart - S1S2, RRR, No edema Lungs - Normal lung expansion, Normal respiratory effort, No respiratory distress, CTA bilaterally Abdomen - Epigastric tenderness with the rounding or guarding. Increased bowel sounds. Extremities - no calf tenderness bilaterally, no swelling Musculoskeletal - Normal inspection, normal ROM Skin - Warm/Dry Neurological - Alert & oriented x3. Moving all extremities spontaneously. Normal speech. Psychological - Appropriate affect Results Labs 03/12/25 08:59 03/12/25 09:00 Labs: Laboratory Results - last 24 hr 03/12/25 03/12/25 03/12/25 08:26 08:59 09:00 MCV 86.8 MCH 30.4 MCHC 35.0 RDW 13.6 Plt Count 506 H MPV 8.6 L Immature Gran % (Auto) 0.9 H Neut % (Auto) 66.6 Lymph % (Auto) 19.3 L Lyon % (Auto) 12.8 H Eos % (Auto) 0.1 Baso % (Auto) 0.3 Lymph # (Auto) 2.7 Lyon # (Auto) 1.8 H Eos # (Auto) 0.0 Baso # (Auto) 0.0 Abs Immat Gran (auto) 0.12 H Absolute Neuts (auto) 9.2 H Absolute Nucleated RBC 0.000 Nucleated RBC % (auto) 0.0 Smear Tech's Comments VERIFIED VBG pH VBG pCO2 VBG pO2 VBG HCO3 VBG O2 Saturation VBG Base Excess Anion Gap 20 Estim Creat Clear Calc 127.3 Estimated GFR > 60 POC Glucose 115 Random Glucose 104 Calcium 8.4 Magnesium 1.5 L Total Bilirubin 0.3 AST 74 H ALT 91 H Alkaline Phosphatase 78 Total Protein 6.1 L Albumin 3.7 Lipase 18 Urine Opiates Screen Ur Buprenorphine Scrn Ur Oxycodone Screen Urine Methadone Screen Urine Fentanyl Screen Ur Barbiturates Screen Ur Phencyclidine Scrn Ur Amphetamines Screen U Benzodiazepines Scrn Urine Cocaine Screen U Marijuana (THC) Screen 03/12/25 03/12/25 09:05 12:10 MCV MCH MCHC RDW Plt Count MPV Immature Gran % (Auto) Neut % (Auto) Lymph % (Auto) Lyon % (Auto) Eos % (Auto) Baso % (Auto) Lymph # (Auto) Lyon # (Auto) Eos # (Auto) Baso # (Auto) Abs Immat Gran (auto) Absolute Neuts (auto) Absolute Nucleated RBC Nucleated RBC % (auto) Smear Tech's Comments VBG pH 7.53 H VBG pCO2 44 VBG pO2 73 VBG HCO3 37 H VBG O2 Saturation 94.0 VBG Base Excess 13.4 Anion Gap Estim Creat Clear Calc Estimated GFR POC Glucose Random Glucose Calcium Magnesium Total Bilirubin AST ALT Alkaline Phosphatase Total Protein Albumin Lipase Urine Opiates Screen Not Detected Ur Buprenorphine Scrn Not Detected Ur Oxycodone Screen Not Detected Urine Methadone Screen Not Detected Urine Fentanyl Screen Not Detected Ur Barbiturates Screen POSITIVE H Ur Phencyclidine Scrn Not Detected Ur Amphetamines Screen Not Detected U Benzodiazepines Scrn POSITIVE H Urine Cocaine Screen Not Detected U Marijuana (THC) Screen POSITIVE H Imaging Radiologist's Impressions: Impressions Chest X-Ray 03/12/25 08:02 IMPRESSION: No acute cardiopulmonary abnormality. Electronically signed by: Nikunj Mendez MD 03/12/2025 09:18 AM EDT RP Head CT 03/12/25 09:17 IMPRESSION: No acute intracranial abnormality. Electronically signed by: Alonso Giles MD 03/12/2025 10:35 AM EDT RP Assessment and Plan (1) Alcohol withdrawal syndrome: Qualifiers: Complication of substance-induced condition: with perceptual disturbance Qualified Code(s): F10.932 - Alcohol use, unspecified with withdrawal with perceptual disturbance Status: Acute (2) Abdominal pain: Qualifiers: Abdominal location: epigastric Qualified Code(s): R10.13 - Epigastric pain Status: Acute Plan Jack Burns is a 34 y/o man presents with: Acute abdominal pain/epigastric secondary to severe erosive gastritis/esophagitis due to alcohol consumption. Advance diet as tolerated. Continue IV fluids, Protonix IV and sucralfate. Continue antiemetic therapy. Pain control with Dilaudid IV as needed. Patient was advised to stop alcohol consumption. Pleuritic chest pain, likely secondary to above and/or underlying pericarditis. Troponin negative. ECG showed no ischemia. Dilaudid IV as needed. Alcohol withdrawal syndrome. CIWA. Continue phenobarbital protocol. Thiamine, folic acid and multivitamins. Multiple electrolyte imbalances: Hypokalemia and hypomagnesemia secondary to above. Replete as needed. Continue to monitor. Telemetry. Chronic pericarditis. Continue colchicine. Prednisone on hold due to acute gastritis/esophagitis. Code status: Full DVT prophylaxis: Lovenox Patient will need hospitalization for at least 2 midnights for severe abdominal pain and alcohol withdrawal syndrome management with IV fluids, thiamine, IV meds and antiemetic therapy. Quality Stroke Does the patient have a stroke diagnosis?: No VTE Prior VTE?: No VTE Risk Level:: Medical - moderate - high VTE Device Contraindication: Treatment Not Indicated VTE Drug Contraindication: N/A - Med Ordered
[2025-03-12 18:44] LABS: Hematocrit 38.0 % (42.0-52.0); Hemoglobin 13.1 g/dl (14.0-18.0); Mean Corpuscular HGB Conc 34.5 g/dl (31.0-36.0); Mean Corpuscular Hemoglobin 30.5 pg (27.0-33.0); Mean Corpuscular Volume 88.4 fL (80.0-98.0); NRBC Abs Auto 0.110 X10*3/uL (0.0-0.012); NRBC Pct Auto 0.8 /100WBC (0.0-0.2); PLT CLUMP 1; Red Blood Count 4.30 X10*6/uL (4.60-5.80)
[2025-03-12 18:54] LABS: Anion Gap 17 (12-20); Blood Urea Nitrogen 10 mg/dL (9-16); Calcium 7.8 mg/dL (8.4-10.2); Carbon Dioxide 25 mmol/L (22-29); Chloride 98 mmol/L (96-108); Creatinine Clr Calc Pharmacy 136.4; Estimated Glomerular Filt Rate > 60; Magnesium 2.2 mg/dL (1.6-2.6); Platelet Count 449 X10*3/uL (160-400); Potassium 3.9 mmol/L (3.3-5.1); Sodium 136 mmol/L (135-145); White Blood Count 13.2 X10*3/uL (4.8-10.8)
[2025-03-13] MEDS: 0.9 % Sodium Chloride Flush 3 ML SYRINGE IVFLUSH (00:10)
--- NOTE | 2025-03-13 00:24 | PC.NURSE ---
pt verbalizing increase in left sided chest pain - requesting medication. prn medication utilized. effectiveness pending. D5LR continues to infuse at 125mls/hr. pt pending transfer to bed assignment at this time. plan of care ongoing. call blue placed within reach.
[2025-03-13 00:44] VITALS: BMI 30.1
[2025-03-13 00:47] VITALS: BP 136/92; PULSE 70; RESP 20; TEMP 36.4; O2SAT 98
[2025-03-13 03:05] VITALS: BP 112/69; PULSE 55; RESP 18; TEMP 36.6; O2SAT 99
[2025-03-13 06:03] LABS: MANUAL DIFF FLAG NO
[2025-03-13 06:22] LABS: Magnesium 2.0 mg/dL (1.6-2.6)
[2025-03-13 06:30] LABS: Alanine Aminotransferase 66 U/L (0-40); Albumin Level 3.2 g/dL (3.5-5.0); Alkaline Phosphatase 79 U/L (39-117); Anion Gap 11 (12-20); Aspartate Amino Transferase 47 U/L (5-37); Blood Urea Nitrogen 8 mg/dL (9-16); Calcium 7.9 mg/dL (8.4-10.2); Carbon Dioxide 31 mmol/L (22-29); Chloride 98 mmol/L (96-108); Creatinine Clr Calc Pharmacy 150.4; Estimated Glomerular Filt Rate > 60; Potassium 2.8 mmol/L (3.3-5.1); Sodium 137 mmol/L (135-145); Total Protein 5.2 g/dL (6.5-8.0)
[2025-03-13 06:32] LABS: Hematocrit 36.0 % (42.0-52.0); Hemoglobin 12.1 g/dl (14.0-18.0); Imm Gran Abs Auto 0.02 X10*3/uL (0.00-0.03); Imm Gran Pct Auto 0.3 % (0.0-0.4); Lymphocytes Absolute Auto 2.6 X10*3/uL (1.2-4.9); Mean Corpuscular HGB Conc 33.6 g/dl (31.0-36.0); Mean Corpuscular Hemoglobin 29.6 pg (27.0-33.0); Mean Corpuscular Volume 88.0 fL (80.0-98.0); NRBC Abs Auto 0.000 X10*3/uL (0.0-0.012); NRBC Pct Auto 0.0 /100WBC (0.0-0.2); Platelet Count 414 X10*3/uL (160-400); Red Blood Count 4.09 X10*6/uL (4.60-5.80); White Blood Count 7.6 X10*3/uL (4.8-10.8)
[2025-03-13] MEDS: Potassium Chloride Packet 20 MEQ PACKET 40 MEQ PO (06:44)
[2025-03-13] MEDS: Potassium Chloride/H20 10 MEQ/100 ML PIGGYBACK 100 MEQ IV ×4 (06:44→10:17)
[2025-03-13 07:32] VITALS: BP 117/78; PULSE 65; RESP 16; TEMP 36; O2SAT 98
[2025-03-13] MEDS: Dextrose 5 % and Lactated Ring 1,000 ML 125 ML IVCONT ×3 (07:52→22:54)
[2025-03-13] MEDS: Thiamine HCL 100 MG in 0.9 % Sodium Chloride 100 ML 101 MG IV (09:05)
--- NOTE | 2025-03-13 13:50 | MHC.CM.PN ---
CM MET WITH PT AT BEDSIDE. PT LIVES WITH SPOUSE AND FAMILY AND IS FUNCTIONALLY INDEPENDENT. NO SVCES OR DME. PT DECLINES TO COMPLETE A HCP AT THIS TIME. PCP DARRICK MULLER DP: HOME, NO SERVICES ANTICIPATED. PT HAS OWN RIDE HOME. CM WILL CONTINUE TO FOLLOW FOR ANY CHANGE TO DC PLAN/NEEDS.
[2025-03-13 15:23] VITALS: BP 137/77; PULSE 69; RESP 17; TEMP 36.6; O2SAT 97
--- NOTE | 2025-03-13 17:29 | P.PNIM_ITS ---
Subjective Subjective Date of Service: 03/14/25 Interval History: hypokalemia ,alcohol withdrawals Review of Systems seems improving has some pain /soarness Review of Systems: Yes all other systems are reviewed and are negative Physical Exam 2 Exam: Exam: Constitutional - Awake and Alert. Heart - S1S2, RRR. Lungs - air entry fair , no rales or wheezing Abdomen - Epigastric tenderness, nd , present bowel sounds. Extremities - no calf tenderness bilaterally, no swelling Neurological - Alert & oriented x3. Moving all extremities spontaneously. Normal speech. Psychological - Appropriate affect Vital Signs: Vital Signs: Last Vital Signs Temp 97.9 F 03/13/25 15:23 Pulse 69 03/13/25 15:23 Resp 17 03/13/25 15:23 BP 137/77 03/13/25 15:23 Pulse Ox 97 03/13/25 15:23 O2 Del Method Room Air 03/13/25 15:23 BMI result Body Mass Index 30.1 Objective Data Active Medications Acetaminophen (Acetaminophen 325 Mg Tablet) 650 mg PO Q6H PRN PRN Reason: Pain, Mild 1-3,fever,headache Last Admin: 03/13/25 06:59 Dose: 650 mg Documented By: FLOWER Calcium Carbonate (Calcium Carbonate 750 Mg Tab.Chew) 750 mg PO Q4H PRN PRN Reason: Heartburn Colchicine (Colchicine 0.6 Mg Tablet) 0.6 mg PO BID COUNT INCLUDES THE [facility] Last Admin: 03/13/25 09:07 Dose: 0.6 mg Documented By: RADHA Cyanocobalamin (Cyanocobalamin (Vitamin B-12) 1,000 Mcg Tablet) 1,000 mcg PO DAILY COUNT INCLUDES THE [facility] Last Admin: 03/13/25 09:07 Dose: 1,000 mcg Documented By: RADHA Enoxaparin Sodium (Enoxaparin Sodium 40 Mg/0.4 Ml Syringe) 40 mg SUBCUT Q24H COUNT INCLUDES THE [facility] Last Admin: 03/13/25 09:06 Dose: 40 mg Documented By: RADHA Hydromorphone HCl (Hydromorphone Hcl 1 Mg/Ml Syringe) 1 mg IVPUSH Q3H PRN; Protocol PRN Reason: Pain, Severe (Pain Scale 7-10) Last Admin: 03/13/25 14:48 Dose: 1 mg Documented By: RADHA Dextrose/Lactated Ringer's (D5lr) 1,000 mls @ 125 mls/hr IVCONT .Q8H COUNT INCLUDES THE [facility] Last Admin: 03/13/25 15:59 Dose: 125 mls/hr Documented By: RADHA Thiamine HCl 100 mg/ Sodium (Chloride) 101 mls @ 202 mls/hr IV DAILY [facility] Stop: 03/16/25 08:59 Last Infusion: 03/13/25 10:16 Dose: Infused Documented By: RADHA Magnesium Hydroxide (Milk Of Magnesia 30 Ml Oral.Susp) 30 ml PO DAILY PRN PRN Reason: Constipation Melatonin (Melatonin 3 Mg Tablet) 6 mg PO BEDTIME PRN PRN Reason: Insomnia Last Admin: 03/13/25 01:02 Dose: 6 mg Documented By: FLOWER Multivitamins/Vitamin C (Multivitamin Tablet) 1 tab PO DAILY COUNT INCLUDES THE [facility] Stop: 03/15/25 08:59 Last Admin: 03/13/25 09:06 Dose: 1 tab Documented By: RADHA Multivitamins/Vitamin C (Multivitamin Tablet) 1 tab PO DAILY COUNT INCLUDES THE [facility] Last Admin: 03/13/25 09:25 Dose: Not Given Documented By: RADHA Non-Admin Reason: Duplicate Order Ondansetron HCl (Ondansetron Hcl 4 Mg/2 Ml Vial) 4 mg IVPUSH Q6H PRN PRN Reason: Nausea and Vomiting Pantoprazole Sodium (Pantoprazole Sodium 40 Mg/10 Ml Vial) 40 mg IVPUSH DAILY@0630 COUNT INCLUDES THE [facility] Last Admin: 03/13/25 06:44 Dose: 40 mg Documented By: FLOWER Pharmacy Consult (Consult Rx Etoh Phenob Im/Po) 1 each MISCELLANE ONCE PRN; Protocol PRN Reason: Consult order Phenobarbital (Phenobarbital 15 Mg Tablet) 45 mg PO BID COUNT [facility]CLUDES THE [facility]; Protocol Stop: 03/14/25 09:01 Last Admin: 03/13/25 09:07 Dose: 45 mg Documented By: RADHA Phenobarbital (Phenobarbital 15 Mg Tablet) 15 mg PO BID COUNT INCLUDES THE [facility]; Protocol Stop: 03/16/25 09:01 Phenobarbital (Phenobarbital 15 Mg Tablet) 15 mg PO DAILY COUNT INCLUDES THE [facility]; Protocol Stop: 03/18/25 09:01 Sodium Chloride (0.9 % Sodium Chloride Flush 3 Ml Syringe) 3 ml IVFLUSH QSHIFT COUNT INCLUDES THE [facility] Last Admin: 03/13/25 15:34 Dose: Not Given Documented By: RADHA Non-Admin Reason: IV Running Sucralfate (Sucralfate 1 Gm Tablet) 1 gm PO BID COUNT INCLUDES THE [facility] Last Admin: 03/13/25 09:07 Dose: 1 gm Documented By: RADHA Labs 03/13/25 05:39 03/14/25 11:22 Labs: Laboratory Results - last 24 hr 03/12/25 03/13/25 18:19 05:39 MCV 88.4 88.0 MCH 30.5 29.6 MCHC 34.5 33.6 RDW 14.0 13.8 Plt Count 449 H 414 H MPV 9.5 8.7 L Immature Gran % (Auto) 0.3 Neut % (Auto) 49.2 Lymph % (Auto) 34.7 Gilchrist % (Auto) 14.9 H Eos % (Auto) 0.4 Baso % (Auto) 0.5 Lymph # (Auto) 2.6 [place]christ # (Auto) 1.1 Eos # (Auto) 0.0 Baso # (Auto) 0.0 Abs Immat Gran (auto) 0.02 Absolute Neuts (auto) 3.7 Absolute Nucleated RBC 0.110 H 0.000 Nucleated RBC % (auto) 0.8 H 0.0 Anion Gap 17 11 L Estim Creat Clear Calc 136.4 150.4 Estimated GFR > 60 > 60 Random Glucose 94 91 Calcium 7.8 L D 7.9 L Magnesium 2.2 2.0 Total Bilirubin 0.5 AST 47 H ALT 66 H Alkaline Phosphatase 79 Total Protein 5.2 L Albumin 3.2 L Assessment and Plan (1) Acute erosive gastritis: Status: Acute (2) Hypokalemia: Status: Acute Plan 34 y/o man presents with: Acute abdominal pain/epigastric secondary to severe erosive gastritis/esophagitis due to alcohol consumption. Continue IV fluids, Protonix IV and sucralfate. Continue antiemetic therapy. Pain control with Dilaudid IV as needed. Patient was advised to stop alcohol consumption. Pleuritic chest pain, likely secondary to above and/or underlying pericarditis. Troponin negative. ECG showed no ischemia. Dilaudid IV as needed. Gi eval off steriods due to esohagitis ,has on/off pain. Alcohol withdrawal syndrome. CIWA. Continue phenobarbital protocol. Thiamine, folic acid and multivitamins. Multiple electrolyte imbalances: Hypokalemia and hypomagnesemia secondary to above. Replete as needed. Continue to monitor. Telemetry. Chronic pericarditis. Continue colchicine. Prednisone on hold due to acute gastritis/esophagitis. Code status: Full. DVT prophylaxis: Lovenox ongoing need for stay severe abdominal pain and alcohol withdrawal syndrome management with IV fluids, thiamine, IV meds and antiemetic therapy. Quality Stroke Does the patient have a stroke diagnosis?: No VTE Prior VTE?: No VTE Risk Level:: Medical - moderate - high VTE Device Contraindication: Treatment Not Indicated VTE Drug Contraindication: N/A - Med Ordered
[2025-03-13 19:13] VITALS: BP 132/76; PULSE 71; RESP 18; TEMP 36.4; O2SAT 98
[2025-03-14] VITALS: BP 124/85; PULSE 71; RESP 18; TEMP 36.4; O2SAT 97
[2025-03-14 04:00] VITALS: BP 126/87; PULSE 73; RESP 18; TEMP 36.8; O2SAT 98
[2025-03-14] MEDS: Dextrose 5 % and Lactated Ring 1,000 ML 125 ML IVCONT (05:39)
--- NOTE | 2025-03-14 06:56 | PM.GICN ---
History of Present Illness Data of Consult Service Date: 03/14/25 Requesting physician: Adam Velazquez Primary Care Provider: YOHANA Bryant HPI 34 YM with alcohol abuse, pancreatitis, pericarditis on colchicine and prednisone seen at [facility] ED on 03/13/25 complaining of upper abdominal pain since Monday associated with multiple events of nausea, nonbloody emesis and diarrhea. Pt is known to me from recent hospitalization at [facility] 03/03 to 03/05/25. He also complained of chest pain that increases with inspiration and denied cough, headache, palpitation fever or chills. He has been having hallucinations. He admits to drinking alcohol daily: 35-40 nips, 12 beers and smokes marijuana occasionally. Patient denied illicit drug use or tobacco smoking. Patient underwent a recent EGD that showed severe erosive esophagitis, hiatal hernia and gastritis; biopsies negative for H pylori. 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 He is and has 1 child and lives with his and mother in law. In the ED, he was found to have stable vital signs however, quite tachycardic. Labs showed leukocytosis of 13.8, hemoglobin is 13.8 platelets 506. PH is 7.53, CO2 37, hypokalemia, 2.6, chloride 91, CO2 31 and sodium 139. BUN is 8 and creatinine 0.90. Magnesium was 1.5. Transaminases are elevated. Alk-phos, bilirubin and lipase are normal. Troponin is < 2.7. Urine drug screen is positive for barbiturates, benzos and marijuana. ECG showed normal sinus rhythm, heart rate 98 beats per minute. ED tx: Valium 20 mg IV, Zofran 12 mg IV total, famotidine 20 mg IV, Protonix 40 mg IV, phenobarbital protocol initiated. Lactated Ringer's 1 L, morphine 2 mg IV 03/04/25 EGD SHOWED: ESOPHAGUS: Hiatal hernia, severe erosive esophagitis with circumferential ulcerations (LA Grade D) and white exudate STOMACH: Gastritis DUODENUM: Normal Pt's symptoms are likely due to severe erosive esophagitis due to GERD exacerbated by heavy alcohol abuse. Plan: 1. Continue IV Pantprazole twice daily 2. Add magic mouth wash four times daily and Carafate slurries 1 gram twice a day - order placed. 3. Repeat EGD in 3-4 months to confirm esophagitis has healed. 4. ETOH Rehab BIOPSIES SHOWED: Gastric antrum, biopsy: Gastric antral mucosa with mild reactive changes and focal minimal chronic inactive inflammation; negative for H. pylori, intestinal metaplasia and dysplasia. [facility] Past Medical History Medical History Pericarditis Pericardial effusion Alcohol use disorder, moderate, dependence MDD (major depressive disorder), recurrent episode, moderate Nausea with vomiting Alcohol use disorder Anxiety and depression History of seizure due to alcohol withdrawal ETOH abuse Family History Family History Other Diabetes Surgical History Surgical History (Updated 03/05/25 @ 11:02 by Alina Batista) History of surgery H/O endoscopy Social History Social History Household Members: Family Housing: House Do you presently have visiting nurse or other home services: No Alcohol intake: current Alcohol intake frequency: 3 or more drinks per day Alcohol type: hard liquor Patient Tobacco Use Status: Former Tobacco user Tobacco use type: Cigarette e-Cigarette/Vaping Use: Never Used Second Hand Smoke Exposure: No Substance Use Type: Crack/Cocaine Advance Directives Date on File: 11/07/22 service: No Current occupational status: employed Meds Allergies Allergy/AdvReac Type Severity Reaction Status Date / Time No Known Allergies Allergy Verified 03/12/25 07:48 Active Medications: Current Medications Acetaminophen (Acetaminophen 325 Mg Tablet) 650 mg PO Q6H PRN PRN Reason: Pain, Mild 1-3,fever,headache Last Admin: 03/13/25 06:59 Dose: 650 mg Calcium Carbonate (Calcium Carbonate 750 Mg Tab.Chew) 750 mg PO Q4H PRN PRN Reason: Heartburn Colchicine (Colchicine 0.6 Mg Tablet) 0.6 mg PO BID [facility] Last Admin: 03/13/25 20:50 Dose: 0.6 mg Cyanocobalamin (Cyanocobalamin (Vitamin B-12) 1,000 Mcg Tablet) 1,000 mcg PO DAILY [facility] Last Admin: 03/13/25 09:07 Dose: 1,000 mcg Enoxaparin Sodium (Enoxaparin Sodium 40 Mg/0.4 Ml Syringe) 40 mg SUBCUT Q24H [facility] Last Admin: 03/13/25 09:06 Dose: 40 mg Hydromorphone HCl (Hydromorphone Hcl 1 Mg/Ml Syringe) 1 mg IVPUSH Q3H PRN; Protocol PRN Reason: Pain, Severe (Pain Scale 7-10) Last Admin: 03/14/25 04:19 Dose: 1 mg Dextrose/Lactated Ringer's (D5lr) 1,000 mls @ 125 mls/hr IVCONT .Q8H EL Last Admin: 03/14/25 05:39 Dose: 125 mls/hr Thiamine HCl 100 mg/ Sodium (Chloride) 101 mls @ 202 mls/hr IV DAILY EL Stop: 03/16/25 08:59 Last Infusion: 03/13/25 10:16 Dose: Infused Magnesium Hydroxide (Milk Of Magnesia 30 Ml Oral.Susp) 30 ml PO DAILY PRN PRN Reason: Constipation Melatonin (Melatonin 3 Mg Tablet) 6 mg PO BEDTIME PRN PRN Reason: Insomnia Last Admin: 03/13/25 21:15 Dose: 6 mg Multivitamins/Vitamin C (Multivitamin Tablet) 1 tab PO DAILY [facility] Stop: 03/15/25 08:59 Last Admin: 03/13/25 09:06 Dose: 1 tab Multivitamins/Vitamin C (Multivitamin Tablet) 1 tab PO DAILY [facility] Last Admin: 03/13/25 09:25 Dose: Not Given Ondansetron HCl (Ondansetron Hcl 4 Mg/2 Ml Vial) 4 mg IVPUSH Q6H PRN PRN Reason: Nausea and Vomiting Pantoprazole Sodium (Pantoprazole Sodium 40 Mg/10 Ml Vial) 40 mg IVPUSH DAILY@0630 [facility] Last Admin: 03/14/25 05:33 Dose: 40 mg Pharmacy Consult (Consult Rx Etoh Phenob Im/Po) 1 each MISCELLANE ONCE PRN; Protocol PRN Reason: Consult order Phenobarbital (Phenobarbital 15 Mg Tablet) 45 mg PO BID [facility]; Protocol Stop: 03/14/25 09:01 Last Admin: 03/13/25 20:50 Dose: 45 mg Phenobarbital (Phenobarbital 15 Mg Tablet) 15 mg PO BID EL; Protocol Stop: 03/16/25 09:01 Phenobarbital (Phenobarbital 15 Mg Tablet) 15 mg PO DAILY [facility]; Protocol Stop: 03/18/25 09:01 Sodium Chloride (0.9 % Sodium Chloride Flush 3 Ml Syringe) 3 ml IVFLUSH QSHIFT [facility] Last Admin: 03/14/25 00:09 Dose: Not Given Sucralfate (Sucralfate 1 Gm Tablet) 1 gm PO BID [facility] Last Admin: 03/13/25 20:50 Dose: 1 gm Home Medications ?Medication ?Instructions ?Recorded ?Confirmed ?Last Taken ?Type prednisone 10 mg tablet 30 mg PO DAILY 12/28/24 03/12/25 03/07/25 History thiamine HCl (vitamin B1) 100 mg 100 mg PO DAILY 02/21/25 03/12/25 03/07/25 History tablet (Vitamin B-1) acetaminophen 500 mg tablet 500 mg PO Q6H PRN Pain 03/03/25 03/12/25 Unknown History multivitamin 1 tab PO DAILY 03/03/25 03/12/25 03/07/25 History cyanocobalamin (vitamin B-12) 1,000 mcg PO DAILY 03/12/25 03/12/25 03/07/25 History 1,000 mcg tablet (Vitamin B-12) lidocaine HCl 2 % mucosal solution 1 appl PO DAILY PRN Pain 03/12/25 03/12/25 Unknown History (Lidocaine Viscous) pantoprazole 40 mg tablet,delayed 40 mg PO BID@0630,1630 03/12/25 03/12/25 03/07/25 History release Physical Exam Vital Signs: Vital Signs: Last Vital Signs Temp 98.2 F 03/14/25 04:00 Pulse 73 03/14/25 04:00 Resp 18 03/14/25 04:00 BP 126/87 03/14/25 04:00 Pulse Ox 98 03/14/25 04:00 O2 Del Method Room Air 03/14/25 04:00 BMI result Body Mass Index 30.1 Results Labs 03/13/25 05:39 03/13/25 05:39 Assessment and Plan (1) Dysphagia, pharyngoesophageal phase: Status: Acute Procedures Date of Service Date of Service: 03/14/25
[2025-03-14 07:11] VITALS: BP 134/93; PULSE 63; RESP 16; TEMP 36; O2SAT 99
[2025-03-14] MEDS: Thiamine HCL 100 MG in 0.9 % Sodium Chloride 100 ML 201 MG IV (07:23)
[2025-03-14] MEDS: oxyCODONE HCl Immed Release 5 MG TABLET PO ×3 (08:51→15:52)
--- NOTE | 2025-03-14 10:21 | MHC.CM.PN ---
PER MD ROUNDS, PT NOT MEDICALLY CLEARED, LABS AND GI CONSULT PENDING DCP HOME VIA PRIVATE TRANSPORT
[2025-03-14 11:54] LABS: Anion Gap 15 (12-20); Blood Urea Nitrogen 4 mg/dL (9-16); Calcium 8.0 mg/dL (8.4-10.2); Carbon Dioxide 18 mmol/L (22-29); Chloride 108 mmol/L (96-108); Creatinine Clr Calc Pharmacy 175.8; Estimated Glomerular Filt Rate > 60; Potassium 3.9 mmol/L (3.3-5.1); Sodium 137 mmol/L (135-145)
[2025-03-14 12:00] VITALS: BP 144/79; PULSE 75; RESP 18; TEMP 36.6; O2SAT 98
[2025-03-14] MEDS: Mag&Al/Sim/Diphenhyd/Lidocaine 10 ML ORAL.SUSP PO (12:32)
[2025-03-14] MEDS: Lidocaine 4 % Patch ADH..PATCH 1 PATCH TRANSDERMA (12:33)
[2025-03-14 15:11] VITALS: BP 139/89; PULSE 85; RESP 18; TEMP 36.6; O2SAT 99
--- NOTE | 2025-03-14 16:39 | PM.DS ---
DS: Providers Provider Date of Service: 03/14/25 Date of admission: 03/12/25 13:01 Date of discharge: 03/14/25 Primary care physician: YOHANA Bryant Consults: 03/13/25 17:58 Consult to Gastroenterology Routine Consulting Provider: [facility] Reason for consultation: esophagitis /pain persistent Has provider been notified: No Attending physician on discharge: Adam Velazquez Discharging clinician: Adam Velazquez DS: Diagnosis Discharge Diagnosis (1) Acute erosive gastritis: Status: Acute (2) Hypokalemia: Status: Acute DS: Summary Hospital Course Hospital Course: HPI:34 years old man with past medical history significant for alcohol abuse, pancreatitis and pericarditis on colchicine and prednisone presents to the emergency department complaining of upper abdominal pain since Monday associated with multiple events of nausea nonbloody vomiting. He also has been experiencing some diarrhea. He also complained of chest pain that increases with inspiration. He denied cough, headache, palpitation fever or chills. He has been having hallucinations. He alcohol daily: 35-40 nips, 12 beers. He smoked marijuana in occasions. Denied illicit drug use or tobacco smoking. Patient underwent a recent EGD that showed severe erosive esophagitis, hiatal hernia and gastritis; biopsies negative for H pylori. In the ED, he was found to have stable vital signs however, quite tachycardic. Blood workup showed leukocytosis of 13.8, hemoglobin is 13.8 platelets 506. PH is 7.53, CO2 37. There is hypokalemia, 2.6, chloride 91, CO2 31 and sodium 139. BUN is 8 and creatinine 0.90. Magnesium is 1.5. Transaminases are elevated. Alk-phos, bilirubin and lipase are normal. Troponin is < 2.7. Urine drug screen is positive for barbiturates, benzos and marijuana. ECG showed normal sinus rhythm, heart rate 98 beats per minute. ED tx: Valium 20 mg IV, Zofran 12 mg IV total, famotidine 20 mg IV, Protonix 40 mg IV, phenobarbital protocol initiated. Lactated Ringer's 1 L, morphine 2 mg IV. Hospital course: Acute abdominal pain/epigastric secondary to severe erosive gastritis/esophagitis due to alcohol consumption: improved with IV fluids, Protonix IV and sucralfate. improved with above . continue home ppi/sucralfate. Patient was strongly advised to abstain from alcohol. Pleuritic chest pain, likely secondary to above and/or underlying pericarditis. Troponin negative. ECG showed no ischemia. Pain is significantly improved,Seen by GI-recommended to start back steroids. 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 Chronic pericarditis. Continue colchicine. Prednisone on hold due to acute gastritis/esophagitis-GI recommended to start back steroids. Multiple electrolyte imbalances: Hypokalemia and hypomagnesemia secondary to above. Repleted and resolved. plan: Abdominal/epigastric pain: Possible alcoholic gastritis/esophagitis: Was recently had EGD: Continue PPI, strongly advised to abstain from alcohol. Elevated LFTs: Possible secondary to alcohol, improving. Strongly advised to abstain from alcohol, further workup for LFT outpatient . Hypokalemia and hypomagnesemia: Hypomagnesemia repleted and resolved, hypokalemia improving -given IV potassium, improved ,limited potassium/magneisum supply added.moniter bmp moniter cbc ,cmp ,magnesium levels outpatient. Management discussed with the patient in detail length, total time spent 45 minute. 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 All questions answered. Time Attestation Total time managing care of this patient today: 45 mintues. Discharge Coordination Time (in mins): 45 min Quality: Safe Use of Opioids Does Pt have an Active Cancer Diagnosis on the Problem List?: No Quality: Stroke Does the patient have a stroke diagnosis?: No Physical Exam Exam: Exam: Appearance: Alert.? Oriented X3.? cvs: rrr, [id number] . res: clear to auscultation ,no rhonchii or wheezing abd: no rebound or guarding ,nt, bs present. ext pulses present , no cyanosis. neuro: axo3 , nonfocal. Vital Signs: Vital Signs: Last Vital Signs Temp 98 F 03/14/25 15:11 Pulse 85 03/14/25 15:11 Resp 18 03/14/25 15:11 BP 139/89 03/14/25 15:11 Pulse Ox 99 03/14/25 15:11 O2 Del Method Room Air 03/14/25 15:11 BMI result Body Mass Index 30.1 DS: Data Data Completed and Pending Completed studies during hospitalization [Text1]: Procedures Detoxification Services for Substance Abuse Treatment (02/21/25) Labs on day of discharge: Laboratory Results - last 24 hr 03/14/25 11:22 Sodium 137 Potassium 3.9 D Chloride 108 Carbon Dioxide 18 L Anion Gap 15 BUN 4 L Creatinine 0.65 Estim Creat Clear Calc 175.8 Estimated GFR > 60 Random Glucose 78 Calcium 8.0 L Imaging Chest x-ray: Radiologist's impression: ITS Impressions Chest X-Ray 03/12/25 08:02 IMPRESSION: No acute cardiopulmonary abnormality. Head CT 03/12/25 09:17 IMPRESSION: No acute intracranial abnormality. Discharge Plan Discharge Anticipated Discharge Date/Time: 03/13/25 13:19 Patient Disposition: Left Against Medical Advice Discharge Diagnosis: Alcoholic gastritis, alcohol withdrawal, hypokalemia and hypomagnesemia Referrals: Physician,Unknown J [Physician, Medical] - 1 Week Discharge Medications: New oxycodone 5 mg Tablet 5 mg PO Q4H PRN (Reason: Pain, Severe (Pain Scale 7-10)) Qty: 15 0RF Rx Instructions: Partial Fill upon patient request. potassium chloride 10 mEq capsule, extended release 10 meq PO DAILY Qty: 4 0RF magnesium citrate 100 mg capsule 100 mg PO BID Qty: 20 0RF lidocaine [Lidocaine Pain Relief] 4 % Adhesive Patch,Medicated 1 patch transdermal DAILY Qty: 7 0RF Protocol: Apply to: Apply to: affected area Continued colchicine 0.6 mg tablet 0.6 mg PO BID 28 Days Qty: 56 0RF prednisone 10 mg tablet 30 mg PO DAILY thiamine HCl (vitamin B1) [Vitamin B-1] 100 mg Tablet 100 mg PO DAILY multivitamin Tablet 1 tab PO DAILY acetaminophen 500 mg Tablet 500 mg PO Q6H PRN (Reason: Pain) sucralfate [Carafate] 1 gram tablet 1 g PO BID Qty: 30 0RF cyanocobalamin (vitamin B-12) [Vitamin B-12] 1,000 mcg Tablet 1,000 mcg PO DAILY lidocaine HCl [Lidocaine Viscous] 2 % solution 1 appl PO DAILY PRN (Reason: Pain) pantoprazole 40 mg tablet,delayed release (DR/EC) 40 mg PO BID@0630,1630 Discharge Orders: Discharge Order (Routine); Ordered 03/14/25 Ordered By: Adam Velazquez Diet: Advance to usual diet Activity on Discharge: As tolerated Stand Alone Forms: Patient Portal Discharge page Print Language: Mongolian Other Ambulatory Orders: Basic Metabolic Panel (Routine) Timeframe: 1 Week Facility: [facility] - Location: Laboratory Ordered By: Adam Velazquez Complete Blood Count Auto Diff (Routine) Timeframe: 1 Week Facility: [facility] - Location: Laboratory Ordered By: Adam Velazquez Care Plan Goals: Abdominal/epigastric pain: Possible alcoholic gastritis/esophagitis: Was recently had EGD: Continue PPI, strongly advised to abstain from alcohol. Elevated LFTs: Possible secondary to alcohol, improving. Strongly advised to abstain from alcohol, further workup for LFT outpatient . Hypokalemia and hypomagnesemia: Hypomagnesemia repleted and resolved, hypokalemia improving -given IV potassium. moniter cbc ,cmp ,magnesium levels outpatient. Health Concerns: As above. Plan of Treatment: As above. Assessment: As above. Discharge Date/Time: 03/14/25 15:59
== END 2025-03-14 15:59 | disposition left against medical advice (07) | DRG 241 ==
LOC: HO.ED 12:46 → HO.EDOVER 13:05 → HO.S3 23:36
PROVIDERS: Internal Medicine; Physician Assistant Medical; Admitting Provider Hospitalist; Emergency Provider Emergency Medicine; PCP Student in an Organized Health Care Education/Training Program; Visit Provider Internal Medicine
DX: K29.00 Acute gastritis without bleeding (principal); I31.9 Disease of pericardium, unspecified; F10.239 Alcohol dependence with withdrawal, unspecified; K22.10 Ulcer of esophagus without bleeding; E87.6 Hypokalemia; K21.9 Gastro-esophageal reflux disease without esophagitis; E83.42 Hypomagnesemia; Z79.52 Long term (current) use of systemic steroids; Z87.891 Personal history of nicotine dependence; Z79.899 Other long term (current) drug therapy
CPT/HCPCS: 36415; 70450; 71045; 80048; 80053; 80307; 82803; 82947; 83690; 83735; 84484; 85025; 85027; 93005; 99285; J1171; J1308; J1650; J1808; J2270; J2405; J2470; J2560; J3360; J3411; J3475; J3480; J7120

== ENCOUNTER → 2025-03-12 08:25 | Outpatient (BNV) | payer OTHER, SELFPAY | PROVIDERS: Admitting Provider Hospitalist; Emergency Provider Emergency Medicine; Visit Provider Internal Medicine | DX: R00.0 Tachycardia, unspecified (principal); R07.9 Chest pain, unspecified | CPT/HCPCS: 93010 ==

== ENCOUNTER → 2025-03-12 08:39 | Outpatient (BNV) | payer OTHER, SELFPAY | PROVIDERS: Emergency Provider Emergency Medicine; Visit Provider Radiology Diagnostic Radiology | DX: F10.932 Alcohol use, unspecified with withdrawal with perceptual disturbance (principal); R07.9 Chest pain, unspecified; W19.XXXA Unspecified fall, initial encounter | CPT/HCPCS: 70450; 71045 ==

== ENCOUNTER → 2025-03-12 13:01 | Outpatient (BNV) | payer OTHER, SELFPAY | PROVIDERS: Admitting Provider Hospitalist; Emergency Provider Emergency Medicine; Visit Provider Internal Medicine | DX: K29.00 Acute gastritis without bleeding (principal); E87.6 Hypokalemia | CPT/HCPCS: 99223; 99231 ==

== ENCOUNTER 2025-03-29 05:26 | Inpatient (IN) | payer OTHER, SELFPAY ==
[2025-03-29] VITALS (12 sets, daily range): BP systolic 113–224; BP diastolic 58–100; PULSE 96–126; RESP 16–29; TEMP 36.6–38; O2SAT 93–99; BMI 30.2
--- NOTE | 2025-03-29 | ECG_ITS ---
Test Reason : CHEST PAIN Blood Pressure : */* mmHG Vent. Rate : 123 BPM Atrial Rate : 123 BPM P-R Int : 136 ms QRS Dur : 76 ms QT Int : 290 ms P-R-T Axes : 54 51 35 degrees QTcB Int : 415 ms Sinus tachycardia Nonspecific T wave abnormality Abnormal ECG When compared with ECG of 12-Mar-2025 12:24, No significant change was found Referred By: Generic ED Physician Electronically Signed By: CHAO RUIZ MD
--- NOTE | ~2025-03-29 | CT_ITS ---
CLINICAL HISTORY: headache CT HEAD WITHOUT CONTRAST Comparison: CT/REG/OR/SR - CT HEAD WITHOUT IV CONTRAST - 03/12/25 10:17 EDT Findings: No acute intracranial hemorrhage, extra-axial fluid collection, hydrocephalus or midline shift. No significant atrophy-like change. No significant white matter disease. There are frothy secretions in the left maxillary sinus. There is opacification of multiple bilateral ethmoid air cells. No mastoid fluid. Visualized orbits: No acute abnormalities. There is no acute fracture. IMPRESSION: 1. No acute intracranial process. 2. Left maxillary and bilateral ethmoid sinusitis. This document has been electronically signed by: Mae Vail DO on 03/29/2025 13:33:52
--- NOTE | ~2025-03-29 | CT_ITS ---
CLINICAL HISTORY: neck pain CT CERVICAL SPINE WITHOUT CONTRAST Comparison: CT/SR - CT CERVICAL SPINE WITHOUT IV CONTRAST - 01/14/23 07:22 EDT Findings: Normal vertebral body alignment. No significant degenerative change. No acute fractures or dislocations. Please see the separate report for the CT head/brain. Soft tissues of the neck are unremarkable. Multiple shotty cervical lymph nodes are nonspecific. No consolidation or effusion at the lung apices. IMPRESSION: 1. No acute fracture in the cervical spine. 2. No significant degenerative changes. This document has been electronically signed by: Mae Vail DO on 03/29/2025 13:38:54
--- NOTE | ~2025-03-29 | CT_ITS ---
CLINICAL HISTORY: right sided chest pain, elevated d-dimer CT angiography chest with contrast. MIP postprocessing. Comparison: CR - XR CHEST 2V - 03/29/25 06:[address]/REG/SR - CT CHEST WO IV CON - 02/10/25 21:[address]/SR - CT ANGIO CHEST PE PROTOCOL - 12/28/24 01:41 EDT Findings: There is appropriate contrast opacification of the main, lobar, and segmental pulmonary arteries. No filling defects identified to suggest pulmonary embolism. Thoracic aorta is nonaneurysmal. Pericardial effusion is again identified. This measures up to 12 mm in thickness. Overall heart size within normal limits. No pathologically enlarged mediastinal, hilar, or axillary lymph nodes identified. Dependent areas of streaky density within the lower lobes bilaterally, [id number]. Trace amount of fluid within the right pleural space. No free fluid or free air within the upper abdomen. No acute bony abnormality. IMPRESSION: 1. No pulmonary embolus. 2. Continued pericardial effusion. 3. Likely atelectasis within the lower lobes bilaterally with trace right pleural effusion. This document has been electronically signed by: Carlos Enrique Johnson MD on 03/29/2025 10:32:26
--- NOTE | ~2025-03-29 | XR_ITS ---
CLINICAL HISTORY: chest pain sob 2 view chest x-ray. Comparison: CR/SR - XR CHEST 1 VIEW - 03/12/25 09:02 EDT Findings: The lungs are adequately expanded. No focal consolidation. No effusion or pneumothorax. Cardiac and mediastinal contours are within normal limits. No acute osseous abnormality Impression: No acute process. This document has been electronically signed by: Kingston Sam MD on 03/29/2025 08:04:57
[2025-03-29 06:00] LABS: Hematocrit 41.8 % (42.0-52.0); Hemoglobin 14.2 g/dl (14.0-18.0); Mean Corpuscular HGB Conc 34.0 g/dl (31.0-36.0); Mean Corpuscular Hemoglobin 29.7 pg (27.0-33.0); Mean Corpuscular Volume 87.4 fL (80.0-98.0); NRBC Abs Auto 0.000 X10*3/uL (0.0-0.012); NRBC Pct Auto 0.0 /100WBC (0.0-0.2); Platelet Count 586 X10*3/uL (160-400); Red Blood Count 4.78 X10*6/uL (4.60-5.80); White Blood Count 19.1 X10*3/uL (4.8-10.8)
[2025-03-29 06:12] LABS: INTERNATIONAL NORM RATIO 1.0 (0.9-1.1); Prothrombin Time 11.7 SEC (10.9-12.4)
[2025-03-29 06:23] LABS: Alanine Aminotransferase 27 U/L (0-40); Albumin Level 4.5 g/dL (3.5-5.0); Alkaline Phosphatase 75 U/L (39-117); Anion Gap 17 (12-20); Aspartate Amino Transferase 25 U/L (5-37); Blood Urea Nitrogen 3 mg/dL (9-16); Calcium 9.4 mg/dL (8.4-10.2); Carbon Dioxide 23 mmol/L (22-29); Chloride 104 mmol/L (96-108); Creatinine Clr Calc Pharmacy 176.3; Estimated Glomerular Filt Rate > 60; Magnesium 2.0 mg/dL (1.6-2.6); Potassium 3.2 mmol/L (3.3-5.1); Sodium 141 mmol/L (135-145); Total Protein 7.3 g/dL (6.5-8.0)
[2025-03-29 06:28] LABS: B Type Natriuretic Peptide < 10 pg/mL (<100)
[2025-03-29 06:29] LABS: Troponin-I High Sensitivity < 2.7 ng/L (<3.5-35.0)
--- NOTE | 2025-03-29 07:50 | ED_ITS ---
HPI - Chest Pain General Chief Complaint: Chest Pain Stated Complaint: Chest Pain Time Seen by Provider: 03/29/25 07:50 History of Present Illness ED Provider: Luciana YEE narrative: The patient is a 34-year-old male with a history of pericarditis. He also has a history of alcoholism and cocaine use. He claims that he has not used cocaine in several months. He admits to still having problems with alcohol use. The patient had a pericardiocentesis over a year ago at [facility]. He has been maintained on prednisone because of his pericarditis. He comes to the emergency room stating that he has sharp pain in the right side of his chest that he describes as similar to pain he has had when he has had pericarditis accept that it is on the opposite side. Previous episodes has been more left-sided. He says the pain is sharp. He feels it in his left chest and in his left neck and in the back of his left head. He says the pains has been coming on for a few days. He says that he drank alcohol to deal with the pain but this morning the pain was severe and so came to the hospital. He says that the pain in his chest is worse with taking a deep breath. He also feels dizzy. The patient has been hospitalized at this hospital 3 times in the last few months. His most recent hospitalization was earlier this month when he was felt to have bad gastritis. He had also been admitted last month , a total of 3 times in February for chest pains and alcohol withdrawal. He was also hospitalized here in December of this year for pneumonia and pleural effusion. Related Data Home Medications ?Medication ?Instructions ?Recorded ?Confirmed prednisone 10 mg tablet 30 mg PO DAILY 12/28/2401/29 thiamine HCl (vitamin B1) 100 mg 100 mg PO DAILY 02/2103/12/25 tablet (Vitamin B-1) acetaminophen 500 mg tablet 500 mg PO Q6H PRN Pain 03/12/25 multivitamin 1 tab PO DAILY 03/03/2501/29 cyanocobalamin (vitamin B-12) 1,000 mcg PO DAILY 03/1203/12/25 1,000 mcg tablet (Vitamin B-12) lidocaine HCl 2 % mucosal solution 1 appl PO DAILY PRN Pain 03/12/25 03/12/25 (Lidocaine Viscous) pantoprazole 40 mg tablet,delayed 40 mg PO BID@0630,16 30 03/12/25 03/12/25 release Previous Rx's ?Medication ?Instructions ?Recorded colchicine 0.6 mg tablet 0.6 mg PO BID 4 weeks #56 ta bs 05/16/24 sucralfate 1 gram tablet (Carafate) 1 g PO BID #30 tab s 03/05/25 oxycodone 5 mg tablet 5 mg PO Q4H PRN Pain, Severe (Pain 03/14/25 Scale 7-10) #15 tabs Allergies Allergy/AdvReac Type Severity Reaction Status Date / Time No Known Allergies Allergy Verified 03/29/25 05:39 Review of Systems 2 Review of Systems: Yes all other systems are reviewed and are negative [facility] Past Medical History Medical History Dysphagia, pharyngoesophageal phase Pericarditis Pericardial effusion Alcohol use disorder, moderate, dependence MDD (major depressive disorder), recurrent episode, moderate Nausea with vomiting Alcohol use disorder Anxiety and depression History of seizure due to alcohol withdrawal ETOH abuse Surgical History History of surgery H/O endoscopy Family History Family History Other Diabetes Social History Social History Household Members: Family Housing: House Do you presently have visiting nurse or other home services: No Alcohol intake: current Alcohol intake frequency: 3 or more drinks per day Alcohol type: hard liquor Patient Tobacco Use Status: Former Tobacco user Tobacco use type: Cigarette Smoked in Last 30 Days: No e-Cigarette/Vaping Use: Never Used Second Hand Smoke Exposure: No Use of substances other than those prescribed or required for medical reasons: Yes Substance Use Type: Marijuana Substance Use Frequency: Occasionally Advance Directives: Yes Advance Directives on File: Yes Advance Directives Date on File: 11/07/22 Nutrition Risks: No Nutritional Risk service: No Current occupational status: employed Physical Exam 2 Vital Signs: Vital Signs: Last Vital Signs Temp 98.2 F 03/29/25 10:52 Pulse 97 03/29/25 12:44 Resp 22 H 03/29/25 12:44 BP 130/85 03/29/25 12:44 Pulse Ox 98 03/29/25 12:44 O2 Del Method Room Air 03/29/25 12:44 BMI result Body Mass Index 30.2 Const: Other: The patient was initially awake and alert. He looks diaphoretic and uncomfortable. HEENT: Other: Face is symmetrical. Mucous membranes moist. Eyes: Other: Pupils are round equal, conjunctivae are clear, extraocular movements intact Neck: Other: There is right-sided neck tenderness posteriorly. Palpation seems to reproduce his pain to some degree. No adenopathy appreciated. Resp: Other: The patient was mildly tachypneic. Breath sounds seemed fairly clear. Cardio: Other: The patient was tachycardic. He has a regular rate and rhythm. I did not appreciate any murmur. GI: Other: The abdomen is soft and seems nontender. Skin: Other: The skin was pale and diaphoretic. Neuro: Other: The patient is awake and alert. He seemed somewhat distracted by discomfort. Cranial nerves 2-12 were intact. He moves his extremities symmetrically with a intact strength and sensation. No focal findings. Extrem: Other: There is no calf swelling or tenderness. No asymmetry. No peripheral edema. Medications Administered Generic Name Dose Route Start Last Admin Trade Name Freq PRN Reason Stop Dose Admin Enoxaparin Sodium 40 mg 03/29/25 12:30 03/29/25 12:43 Enoxaparin Sodium 40 Mg/0.4 Ml Syringe SUBCUT 40 mg Q24H EL Administration Lactated Ringer's 1,000 mls @ 100 mls/hr 03/29/25 12:30 03/29/25 12:48 Lr IVCONT 100 mls/hr .Q10H EL Administration Discontinued Medications Generic Name Dose Route Start Last Admin Trade Name Freq PRN Reason Stop Dose Admin Diazepam 10 mg 03/29/25 07:54 03/29/25 08:05 Diazepam 10 Mg/2 Ml Cartridge IVPUSH 03/29/25 07:55 10 mg STAT STA Administration Diphenhydramine HCl 25 mg 03/29/25 11:03/29/25 11:33 Diphenhydramine Hcl 50 Mg/Ml Vial IVPUSH 03/29/25 11:26 25 mg ONCE ONE Administration Droperidol 1.25 mg 03/29/25 11:03/29/25 11:32 Droperidol 5 Mg/2 Ml Vial IVPUSH 03/29/25 11:26 1.25 mg ONCE ONE Administration Hydromorphone HCl 1 mg 03/29/25 08:59 03/29/25 09:05 Hydromorphone Hcl 1 Mg/Ml Syringe IVPUSH 03/29/25 09:00 1 mg ONCE ONE Administration Protocol Hydromorphone HCl 1 mg 03/29/25 10:17 03/29/25 10:22 Hydromorphone Hcl 1 Mg/Ml Syringe IVPUSH 03/29/25 10:18 1 mg ONCE ONE Administration Protocol Sodium Chloride 1,000 mls @ 999 mls/hr 03/29/25 08:00 03/29/25 09:08 Ns IV 03/29/25 09:00 Infused .Q1H1M EL Infusion Sodium Chloride 1,000 mls @ 999 mls/hr 03/29/25 08:30 03/29/25 10:51 Ns IV 03/29/25 09:30 Infused .Q1H1M EL Infusion Piperacillin Sod/Tazobactam 100 mls @ 200 mls/hr 03/29/25 09:21 03/29/25 10:27 Sod 4.5 gm/ Sodium Chloride IV 03/29/25 09:50 Infused ONCE ONE Infusion Vancomycin HCl 2,000 mg in 500 mls @ 250 mls/hr 03/29/25 09:22 03/29/25 12:38 Vancomycin/Ns IV 03/29/25 11:21 Infused ONCE ONE Infusion Sodium Chloride 1,000 mls @ 999 mls/hr 03/29/25 09:30 03/29/25 12:02 Ns IV 03/29/25 10:30 Infused .Q1H1M EL Infusion Iohexol 100 ml 03/29/25 10:10 03/29/25 10:11 Iohexol 350 Mg/Ml 100 Ml Infus..Btl IV 03/29/25 10:11 65 ml ONCE ONE Administration Ketorolac Tromethamine 15 mg 03/29/25 07:55 03/29/25 08:03 Ketorolac Tromethamine 15 Mg/Ml Vial IVPUSH 03/29/25 07:56 15 mg ONCE ONE Administration Morphine Sulfate 4 mg 03/29/25 07:54 03/29/25 08:04 Morphine Sulfate 4 Mg/Ml Cartridge IVPUSH 03/29/25 07:55 4 mg ONCE ONE Administration Protocol Phenobarbital Sodium 328 mg 03/29/25 13:00 03/29/25 12:43 Phenobarbital Sodium 130 Mg/Ml Im Once IM 03/29/25 13:01 328 mg ONCE ONE Administration Protocol Medical Decision Making Medical Decision Making [facility] Narrative: The patient is a 34-year-old male who has a history of pericarditis for which he is maintained on long-term prednisone. Additionally the patient has a history of alcoholism. He also has a history of cocaine use although he denies any recent cocaine use. He presents with the acute pain in his right chest in the right side of his neck that he says feels like the same kind of symptoms he had with pericarditis accepted he usually experiences his pericarditis pain on the left side. The patient has had multiple hospitalizations this year for reasons of chest pain, alcohol problems, and gastritis. I believe this is a fairly similar presentation. He was tachycardic and hypertensive. He looked diaphoretic and unwell. The patient was given morphine, diazepam, and ketorolac as well as IV fluids initially. Workup revealed a high white count of 19,000 but with no significant left shift. He has a CRP of 13 which is considerably higher than when it was last checked. On February 10 his CRP was 0.3, on January 23 his CRP was undetectable. Since the patient had an elevated white blood count and an elevated CRP blood cultures and a lactate were sent. His lactate was elevated at 3.7. He was given empiric antibiotics with piperacillin/tazobactam and vancomycin. No definite source of infection was apparent. A D-dimer was done which was elevated. A CT pulmonary angiogram was done that shows no sign of pulmonary embolism and no obvious pneumonia. He has there has been findings of a pericardial effusion. He is not showing any signs of tamponade. His abdomen seems benign. His urinalysis is negative. His alcohol level was elevated at 155. His urine tox screen did not show cocaine use. Ultimately the patient looked slightly better but he had required an awful lot of medication. He received several doses of hydromorphone. He received droperidol and ketorolac and diazepam. It is still not clear whether there was actually an infectious process. However given his abnormal vital signs and his history of alcohol withdrawal symptoms I think admission is prudent. He will be admitted to the hospitalist service. He was started on the phenobarb protocol. Lab Data 03/29/25 05:56 03/29/25 05:56 Labs: Lab Results 03/29/25 03/29/25 03/29/25 Range/Units 05:56 08:48 08:49 WBC 19.1 H (4.8-10.8) X10*3/uL RBC 4.78 (4.60-5.80) X10*6/uL Hgb 14.2 (14.0-18.0) g/dl Hct 41.8 L (42.0-52.0) % MCV 87.4 (80.0-98.0) fL MCH 29.7 (27.0-33.0) pg MCHC 34.0 (31.0-36.0) g/dl RDW 14.0 (11.0-16.0) % Plt Count 586 H D (160-400) X10*3/uL MPV 8.2 L (9.4-12.4) fL Immature Gran % (Auto) 0.3 (0.0-0.4) % Neut % (Auto) 61.8 (45-73) % Lymph % (Auto) 23.6 (20-40) % [place] % (Auto) 13.6 H (2-11) % Eos % (Auto) 0.2 (0-4) % Baso % (Auto) 0.5 (0-2) % Lymph # (Auto) 4.6 (1.2-4.9) X10*3/uL [place] # (Auto) 2.6 H (0.1-1.2) X10*3/uL Eos # (Auto) 0.0 (0.0-0.4) X10*3/uL Baso # (Auto) 0.1 (0.0-0.2) X10*3/uL Abs Immat Gran (auto) 0.06 H (0.00-0.03) X10*3/uL Absolute Neuts (auto) 12.0 H (2.0-8.3) x10*3/uL Absolute Nucleated RBC 0.000 (0.0-0.012) X10*3/uL Nucleated RBC % (auto) 0.0 (0.0-0.2) /100WBC Smear Tech's Comments VERIFIED PT 11.7 (10.9-12.4) SEC INR 1.0 (0.9-1.1) D-Dimer High Sensitivty 721 NG/ML Sodium 141 (135-145) mmol/L Potassium 3.2 L (3.3-5.1) mmol/L Chloride 104 (96-108) mmol/L Carbon Dioxide 23 (22-29) mmol/L Anion Gap 17 (12-20) BUN 3 L (9-16) mg/dL Creatinine 0.65 (0.5-1.4) mg/dL Estim Creat Clear Calc 176.3 Estimated GFR > 60 Random Glucose 102 (60-115) mg/dL Lactic Acid 3.7 H* (0.5-2.0) mmol/L Lactic Acid F/U @ 2Hr (0.5-2.0) mmol/L Calcium 9.4 D (8.4-10.2) mg/dL Magnesium 2.0 (1.6-2.6) mg/dL Total Bilirubin 0.3 (0.0-1.0) mg/dL AST 25 (5-37) U/L ALT 27 (0-40) U/L Alkaline Phosphatase 75 (39-117) U/L Troponin I High Sens < 2.7 (<3.5-35.0) ng/L C-Reactive Protein 13.13 H (< or = 0.50) mg/dL B-Natriuretic Peptide < 10 (<100) pg/mL Total Protein 7.3 (6.5-8.0) g/dL Albumin 4.5 (3.5-5.0) g/dL Urine Color Urine Appearance Urine pH (5.0-9.0) Ur Specific [place] (1.005-1.025) Urine Protein (Neg-Trace) mg/dL Urine Glucose (UA) (Negative) mg/dL Urine Ketones (Negative) mg/dL Urine Blood (Negative) Urine Nitrite (Negative) Ur Leukocyte Esterase (Negative) Urine Opiates Screen (Not Detect) Ur Buprenorphine Scrn (Not Detect) ng/mL Ur Oxycodone Screen (Not Detect) ng/mL Urine Methadone Screen (Not Detect) ng/mL Urine Fentanyl Screen (Not Detect) Ur Barbiturates Screen (Not Detect) Ur Phencyclidine Scrn (Not Detect) Ur Amphetamines Screen (Not Detect) U Benzodiazepines Scrn (Not Detect) Urine Cocaine Screen (Not Detect) U Marijuana (THC) Screen (Not Detect) Ethyl Alcohol 155 mg/dL 03/29/25 03/29/25 Range/Units 11:09 11:56 WBC (4.8-10.8) X10*3/uL RBC (4.60-5.80) X10*6/uL Hgb (14.0-18.0) g/dl Hct (42.0-52.0) % MCV (80.0-98.0) fL MCH (27.0-33.0) pg MCHC (31.0-36.0) g/dl RDW (11.0-16.0) % Plt Count (160-400) X10*3/uL MPV (9.4-12.4) fL Immature Gran % (Auto) (0.0-0.4) % Neut % (Auto) (45-73) % Lymph % (Auto) (20-40) % [place] % (Auto) (2-11) % Eos % (Auto) (0-4) % Baso % (Auto) (0-2) % Lymph # (Auto) (1.2-4.9) X10*3/uL [place] # (Auto) (0.1-1.2) X10*3/uL Eos # (Auto) (0.0-0.4) X10*3/uL Baso # (Auto) (0.0-0.2) X10*3/uL Abs Immat Gran (auto) (0.00-0.03) X10*3/uL Absolute Neuts (auto) (2.0-8.3) x10*3/uL Absolute Nucleated RBC (0.0-0.012) X10*3/uL Nucleated RBC % (auto) (0.0-0.2) /100WBC Smear Tech's Comments PT (10.9-12.4) SEC INR (0.9-1.1) D-Dimer High Sensitivty NG/ML Sodium (135-145) mmol/L Potassium (3.3-5.1) mmol/L Chloride (96-108) mmol/L Carbon Dioxide (22-29) mmol/L Anion Gap (12-20) BUN (9-16) mg/dL Creatinine (0.5-1.4) mg/dL Estim Creat Clear Calc Estimated GFR Random Glucose (60-115) mg/dL Lactic Acid (0.5-2.0) mmol/L Lactic Acid F/U @ 2Hr 2.4 H* (0.5-2.0) mmol/L Calcium (8.4-10.2) mg/dL Magnesium (1.6-2.6) mg/dL Total Bilirubin (0.0-1.0) mg/dL AST (5-37) U/L ALT (0-40) U/L Alkaline Phosphatase (39-117) U/L Troponin I High Sens (<3.5-35.0) ng/L C-Reactive Protein (< or = 0.50) mg/dL B-Natriuretic Peptide (<100) pg/mL Total Protein (6.5-8.0) g/dL Albumin (3.5-5.0) g/dL Urine Color Yellow Urine Appearance Clear Urine pH 7.5 (5.0-9.0) Ur Specific [place] 1.020 (1.005-1.025) Urine Protein Negative (Neg-Trace) mg/dL Urine Glucose (UA) Negative (Negative) mg/dL Urine Ketones Negative (Negative) mg/dL Urine Blood Negative (Negative) Urine Nitrite Negative (Negative) Ur Leukocyte Esterase Negative (Negative) Urine Opiates Screen POSITIVE H (Not Detect) Ur Buprenorphine Scrn Not Detected (Not Detect) ng/mL Ur Oxycodone Screen Not Detected (Not Detect) ng/mL Urine Methadone Screen Not Detected (Not Detect) ng/mL Urine Fentanyl Screen Not Detected (Not Detect) Ur Barbiturates Screen POSITIVE H (Not Detect) Ur Phencyclidine Scrn Not Detected (Not Detect) Ur Amphetamines Screen Not Detected (Not Detect) U Benzodiazepines Scrn Not Detected (Not Detect) Urine Cocaine Screen Not Detected (Not Detect) U Marijuana (THC) Screen POSITIVE H (Not Detect) Ethyl Alcohol mg/dL Critical Care Time Critical Care Time Critical Care Time: Yes Total Critical Care Time: 35 Attestation: The patient was critically ill with a high probability of imminent or life- threatening deterioration. ?I spent greater than 30 minutes of discontinuous time evaluating the patient, delivering critical care at the bedside, discussing evaluating data with consultants. ?Critical care time does not include time spent performing separately billable procedures or teaching. ?Time spent performing critical care with 35 minutes. Discharge Plan Discharge Clinical Impression: Chest pain, Alcohol withdrawal, Head pain, History of pericarditis Patient Disposition: Admitted As Inpatient
[2025-03-29] MEDS: diazePAM 10 MG/2 ML CARTRIDGE IVPUSH (08:05)
[2025-03-29 08:14] LABS: Imm Gran Abs Auto 0.06 X10*3/uL (0.00-0.03); Imm Gran Pct Auto 0.3 % (0.0-0.4); Lymphocytes Absolute Auto 4.6 X10*3/uL (1.2-4.9); MANUAL DIFF FLAG SCAN; SCAN SMEAR FLAG 1
[2025-03-29 09:06] LABS: D Dimer High Sensitivity 721 NG/ML
--- NOTE | 2025-03-29 09:11 | PC.NURSE ---
Patient reporting pain to back of head that travels down back of neck between breast bone and shoulder pain , reports pain feels like his shoulder is broken. Medicated per mar with no improvement in pain, MD aware with additional orders obtained. HR improved to low 100`s. Patient denies dizziness, n/v. Denies vision changes
[2025-03-29] MEDS: iohexoL 350 MG/ML 100 ML INFUS..BTL IV (10:11)
[2025-03-29] MEDS: vancomycin/NS 2,000 MG/500 ML PLAST..BAG 250 MG IV (10:22)
--- NOTE | 2025-03-29 10:39 | PC.NURSE ---
Continues to report severe head pain, provider aware.
[2025-03-29 10:56] LABS: Reflex Lactate? Lactic Acid Added
--- NOTE | 2025-03-29 11:25 | PC.NURSE ---
Assumed care of this patient at 1100, patient resting quietly on stretcher at this time, c/o 04/16 back of head pain & chest pain, Dr. Valdez made aware awaiting orders.
[2025-03-29 12:03] LABS: ~Lactic Acid-LAB USE ONLY 2.4 mmol/L (0.5-2.0)
[2025-03-29 12:12] LABS: Appearance Urine Clear; Glucose Urine UA Negative (Negative); PH 7.5 (5.0-9.0); Specific Gravity - Urine 1.020 (1.005-1.025)
[2025-03-29 12:23] LABS: Cannabinoid Screen Urine POSITIVE (Not Detect)
--- NOTE | 2025-03-29 12:24 | PM.IMHP ---
History of Present Illness Date of Service: 03/29/25 Attending physician on admission: Adam Velazquez Chief Complaint: chest pain, shoulder pain This is a 34-year-old male with history of chronic pericarditis, alcohol use who presents to the emergency department with multiple complaints. Patient states for the past 1 week he has been having pain in his right shoulder which is worse with movement. In addition he has begun having stabbing pain to the back of his head. He initially thought his shoulder pain was a muscular strain but his pain became worse and so he presented to the emergency department for evaluation. He also endorses chills, no fever. He reports being compliant with his colchicine and prednisone for pericarditis. When asked about his alcohol use he is less than forthcoming stating that he has been drinking ?not that much? lately. He does say that he has been drinking ?some? alcohol to help with his shoulder pain. On arrival to the emergency department he was tachycardic, tachypneic, hypertensive. He received multiple doses of antiemetics, IV narcotics and fluid and his heart rate, blood pressure, and respiratory rate improved lab work significant for leukocytosis of 19,000, potassium of 3.2, D-dimer 721, lactic acid initially 3.7, down to 2.4. Troponin negative, EKG with no acute ischemic changes. CRP also elevated at 13.3. CTA was negative for acute pulmonary embolus, shows likely atelectasis and continued pericardial effusion. Patient had no hypoxia or respiratory symptoms, no urinary symptoms, no abdominal pain or diarrhea. He has remained afebrile. He was started on phenobarbital protocol in the decision was made to admit him to the hospital for further management. Review of Systems Review of Systems: Yes all other systems are reviewed and are negative Constitutional: Constitutional: Reports chills, Denies fever(s) and Reports headache(s) ENT: Denies dizziness and Reports headache(s) Cardiovascular: Cardiovascular: Reports chest pain, Denies palpitations and Denies dyspnea Respiratory: Respiratory: Denies cough and Denies dyspnea Gastrointestinal: Gastrointestinal: Denies abdominal pain, Denies diarrhea, Denies nausea and Denies vomiting Musculoskeletal: Comments: right shoulder pain Neurologic: Denies dizziness and Reports headache(s) Endocrine: Endocrine: Denies palpitations PMFSH Medical History Dysphagia, pharyngoesophageal phase Pericarditis Pericardial effusion Alcohol use disorder, moderate, dependence MDD (major depressive disorder), recurrent episode, moderate Nausea with vomiting Alcohol use disorder Anxiety and depression History of seizure due to alcohol withdrawal ETOH abuse Family History Other Diabetes Surgical History History of surgery H/O endoscopy Social History Household Members: Family Housing: House Do you presently have visiting nurse or other home services: No Alcohol intake: current Alcohol intake frequency: 3 or more drinks per day Alcohol type: hard liquor Patient Tobacco Use Status: Former Tobacco user Tobacco use type: Cigarette Smoked in Last 30 Days: No e-Cigarette/Vaping Use: Never Used Second Hand Smoke Exposure: No Use of substances other than those prescribed or required for medical reasons: Yes Substance Use Type: Marijuana Substance Use Frequency: Occasionally Advance Directives: Yes Advance Directives on File: Yes Advance Directives Date on File: 11/07/22 Nutrition Risks: No Nutritional Risk service: No Current occupational status: employed Meds Allergies Allergy/AdvReac Type Severity Reaction Status Date / Time No Known Allergies Allergy Verified 03/29/25 05:39 Active Medications: Current Medications Acetaminophen (Acetaminophen 325 Mg Tablet) 650 mg PO Q6H PRN PRN Reason: Pain, Mild 1-3,fever,headache Calcium Carbonate (Calcium Carbonate 750 Mg Tab.Chew) 750 mg PO Q4H PRN PRN Reason: Heartburn Enoxaparin Sodium (Enoxaparin Sodium 40 Mg/0.4 Ml Syringe) 40 mg SUBCUT Q24H EL Lactated Ringer's (Lr) 1,000 mls @ 100 mls/hr IVCONT .Q10H EL Magnesium Hydroxide (Milk Of Magnesia 30 Ml Oral.Susp) 30 ml PO DAILY PRN PRN Reason: Constipation Melatonin (Melatonin 3 Mg Tablet) 6 mg PO BEDTIME PRN PRN Reason: Insomnia Pharmacy Consult (Consult Rx Etoh Phenob Im/Po) 1 each MISCELLANE ONCE PRN; Protocol PRN Reason: Consult order Phenobarbital (Phenobarbital 15 Mg Tablet) 45 mg PO BID EL; Protocol Stop: 03/31/25 21:01 Phenobarbital (Phenobarbital 15 Mg Tablet) 15 mg PO BID EL; Protocol Stop: 04/02/25 21:01 Phenobarbital (Phenobarbital 15 Mg Tablet) 15 mg PO DAILY EL; Protocol Stop: 04/04/25 09:01 Phenobarbital Sodium (Phenobarbital Sodium 130 Mg/Ml Im Once) 328 mg IM ONCE ONE; Protocol Stop: 03/29/25 13:01 Phenobarbital Sodium (Phenobarbital Sodium 130 Mg/Ml Vial Im Q3hx2) 246 mg IM Q3H EL; Protocol Stop: 03/29/25 19:01 Sodium Chloride (0.9 % Sodium Chloride Flush 3 Ml Syringe) 3 ml IVFLUSH QSHIFT [facility] Home Medications ?Medication ?Instructions ?Recorded ?Confirmed ?Last Taken ?Type prednisone 10 mg tablet 30 mg PO DAILY 12/28/24 03/12/25 03/07/25 History thiamine HCl (vitamin B1) 100 mg 100 mg PO DAILY 02/21/25 03/12/25 03/07/25 History tablet (Vitamin B-1) acetaminophen 500 mg tablet 500 mg PO Q6H PRN Pain 03/03/25 03/12/25 Unknown History multivitamin 1 tab PO DAILY 03/03/25 03/12/25 03/07/25 History cyanocobalamin (vitamin B-12) 1,000 mcg PO DAILY 03/12/25 03/12/25 03/07/25 History 1,000 mcg tablet (Vitamin B-12) lidocaine HCl 2 % mucosal solution 1 appl PO DAILY PRN Pain 03/12/25 03/12/25 Unknown History (Lidocaine Viscous) pantoprazole 40 mg tablet,delayed 40 mg PO BID@0630,1630 03/12/25 03/12/25 03/07/25 History release Physical Exam Vital Signs and Narrative: Vital Signs: Last Vital Signs Temp 98.2 F 03/29/25 10:52 Pulse 104 H 03/29/25 11:59 Resp 19 03/29/25 11:59 BP 113/89 03/29/25 11:59 Pulse Ox 99 03/29/25 11:59 O2 Del Method Room Air 03/29/25 11:59 BMI result Body Mass Index 30.2 Const: General: alert and awake Nutritional Appearance: overweight Orientation/consciousness: patient oriented x3 Neck: Other: full ROM Yes no meningeal signs Resp: Effort & Inspection: normal respiratory effort, able to speak in complete sentences, no respiratory distress and no use of accessory muscles Auscultation: clear to auscultation bilaterally Cardio: Rate: regular rate GI: Inspection: No distended Palpation (GI): Soft to palpation and nontender Neuro: Other: grossly non-focal; no deficits appreciated General: patient oriented x3, moves all extremities and no meningeal signs Extrem: Other: right should tender to palpation anterior shoulder joint; no tenderness to surrounding soft tissues, or trapezius General: No pedal edema Results Labs 03/29/25 05:56 03/29/25 05:56 Labs: Laboratory Results - last 24 hr 03/29/25 03/29/25 03/29/25 05:56 08:48 08:49 MCV 87.4 MCH 29.7 MCHC 34.0 RDW 14.0 Plt Count 586 H D MPV 8.2 L Immature Gran % (Auto) 0.3 Neut % (Auto) 61.8 Lymph % (Auto) 23.6 Mobile % (Auto) 13.6 H Eos % (Auto) 0.2 Baso % (Auto) 0.5 Lymph # (Auto) 4.6 Mobile # (Auto) 2.6 H Eos # (Auto) 0.0 Baso # (Auto) 0.1 Abs Immat Gran (auto) 0.06 H Absolute Neuts (auto) 12.0 H Absolute Nucleated RBC 0.000 Nucleated RBC % (auto) 0.0 Smear Tech's Comments VERIFIED PT 11.7 INR 1.0 D-Dimer High Sensitivty 721 Anion Gap 17 Estim Creat Clear Calc 176.3 Estimated GFR > 60 Random Glucose 102 Lactic Acid 3.7 H* Lactic Acid F/U @ 2Hr Calcium 9.4 D Magnesium 2.0 Total Bilirubin 0.3 AST 25 ALT 27 Alkaline Phosphatase 75 C-Reactive Protein 13.13 H B-Natriuretic Peptide < 10 Total Protein 7.3 Albumin 4.5 Urine Color Urine Appearance Urine pH Ur Specific [place] Urine Protein Urine Glucose (UA) Urine Ketones Urine Blood Urine Nitrite Ur Leukocyte Esterase Urine Opiates Screen Ur Buprenorphine Scrn Ur Oxycodone Screen Urine Methadone Screen Urine Fentanyl Screen Ur Barbiturates Screen Ur Phencyclidine Scrn Ur Amphetamines Screen U Benzodiazepines Scrn Urine Cocaine Screen U Marijuana (THC) Screen Ethyl Alcohol 155 03/29/25 03/29/25 11:09 11:56 MCV MCH MCHC RDW Plt Count MPV Immature Gran % (Auto) Neut % (Auto) Lymph % (Auto) [place] % (Auto) Eos % (Auto) Baso % (Auto) Lymph # (Auto) [place] # (Auto) Eos # (Auto) Baso # (Auto) Abs Immat Gran (auto) Absolute Neuts (auto) Absolute Nucleated RBC Nucleated RBC % (auto) Smear Tech's Comments PT INR D-Dimer High Sensitivty Anion Gap Estim Creat Clear Calc Estimated GFR Random Glucose Lactic Acid Lactic Acid F/U @ 2Hr 2.4 H* Calcium Magnesium Total Bilirubin AST ALT Alkaline Phosphatase C-Reactive Protein B-Natriuretic Peptide Total Protein Albumin Urine Color Yellow Urine Appearance Clear Urine pH 7.5 Ur Specific [place] 1.020 Urine Protein Negative Urine Glucose (UA) Negative Urine Ketones Negative Urine Blood Negative Urine Nitrite Negative Ur Leukocyte Esterase Negative Urine Opiates Screen POSITIVE H Ur Buprenorphine Scrn Not Detected Ur Oxycodone Screen Not Detected Urine Methadone Screen Not Detected Urine Fentanyl Screen Not Detected Ur Barbiturates Screen POSITIVE H Ur Phencyclidine Scrn Not Detected Ur Amphetamines Screen Not Detected U Benzodiazepines Scrn Not Detected Urine Cocaine Screen Not Detected U Marijuana (THC) Screen POSITIVE H Ethyl Alcohol Assessment and Plan (1) Alcohol withdrawal syndrome: Qualifiers: Complication of substance-induced condition: with perceptual disturbance Qualified Code(s): F10.932 - Alcohol use, unspecified with withdrawal with perceptual disturbance Status: Acute (2) Pericarditis: Qualifiers: Chronicity: acute Pericarditis type: unspecified type Qualified Code(s): I30.9 - Acute pericarditis, unspecified Status: Acute Plan This is a 34-year-old male with history of chronic pericarditis on colchicine and prednisone, alcohol withdrawal, frequent admissions for chest pain and alcohol withdrawal who presents to the emergency department with chest pain/right shoulder pain, headache found to have tachycardia tremulousness and symptoms consistent with alcohol withdrawal Alcohol dependence with alcohol withdrawal Started on phenobarbital in the emergency department, continue protocol Monitor CIWA Supplementation with thiamine and folic acid Addiction Medicine consultation SIRS Patient meets SIRS criteria with tachycardia and leukocytosis There is no obvious evidence of acute infection at this time. CXR, UA, CTA negative Tachycardia likely due to alcohol withdrawal and pain; leukocytosis due to chronic steroid use tox screen pending for possible drug use also Received empiric antibiotics in the emergency department, we will hold off on further antibiotics at this time Follow blood cultures trend cbc Shoulder pain Seems musculoskeletal in nature/possible component of impingement Symptomatic support, outpatient follow-up with Orthopedics head/neck CT scan pending at time of admission acute lactic acidosis no obvious infection to suggest sepsis May be due to alcohol withdrawal/dehydration chronic pericarditis with pericardial effusion status post pericardiocentesis Continue baseline colchicine, prednisone DVT prophylaxis Lovenox Code status full code Patient will likely require 2 midnight stay in the hospital for management of alcohol withdrawal on further workup regarding shoulder pain Quality Stroke Does the patient have a stroke diagnosis?: No VTE Prior VTE?: No VTE Risk Level:: Medical - moderate - high VTE Device Contraindication: N/A - Device Ordered VTE Drug Contraindication: N/A - Med Ordered
[2025-03-29] MEDS: PHENobarbitaL sodium 130 MG/ML IM ONCE 328 MG IM (12:43)
[2025-03-29] MEDS: Lactated Ringers 1,000 ML 100 ML IVCONT ×2 (12:48→22:42)
[2025-03-29 13:12] LABS: Reflex Lactate? 2 Y
--- NOTE | 2025-03-29 13:57 | PC.NURSE ---
Patient continues to c/o head and chest pain, has been medicated with multiple medications, none seem to be effective, admitting provider Kamini made aware via tiger, awaiting orders.
[2025-03-29] MEDS: Butalb/Acetamin/Caff 50/325/40 TABLET 1 TAB PO (14:07)
--- NOTE | 2025-03-29 14:10 | PHA.MEDREC ---
Pharmacy Consult ? Medication Reconciliation Pharmacy has completed the medication reconciliation. Spoke to patient at bedside, confirmed all medication unprompted. Noted current prednisone dose is 25mg
[2025-03-29 14:17] LABS: ~Lactic Acid-LAB USE ONLY 3.3 mmol/L (0.5-2.0)
--- NOTE | 2025-03-29 14:32 | PC.NURSE ---
3rd lactic 3.3, admitting provider Kamini made aware, LR currently running 100/hr.
[2025-03-29] MEDS: Lidocaine 4 % Patch ADH..PATCH 2 PATCH TRANSDERMA (14:49)
--- NOTE | 2025-03-29 15:40 | PC.NURSE ---
informed of myriam and soham willard.t headache
[2025-03-29] MEDS: PHENobarbitaL sodium 130 MG/ML VIAL IM Q3Hx2 246 MG IM ×2 (15:43→19:57)
[2025-03-29] MEDS: 0.9 % Sodium Chloride Flush 3 ML SYRINGE IVFLUSH (19:59)
[2025-03-30 03:22] VITALS: BP 129/84; PULSE 95; RESP 16; TEMP 37.1; O2SAT 97
[2025-03-30 06:29] LABS: Hematocrit 35.5 % (42.0-52.0); Hemoglobin 11.7 g/dl (14.0-18.0); Imm Gran Abs Auto 0.07 X10*3/uL (0.00-0.03); Imm Gran Pct Auto 0.4 % (0.0-0.4); Lymphocytes Absolute Auto 2.9 X10*3/uL (1.2-4.9); MANUAL DIFF FLAG SCAN; Mean Corpuscular HGB Conc 33.0 g/dl (31.0-36.0); Mean Corpuscular Hemoglobin 29.8 pg (27.0-33.0); Mean Corpuscular Volume 90.3 fL (80.0-98.0); NRBC Abs Auto 0.000 X10*3/uL (0.0-0.012); NRBC Pct Auto 0.0 /100WBC (0.0-0.2); Platelet Count 495 X10*3/uL (160-400); Red Blood Count 3.93 X10*6/uL (4.60-5.80); SCAN SMEAR FLAG 1; White Blood Count 16.5 X10*3/uL (4.8-10.8)
[2025-03-30 06:42] LABS: Anion Gap 13 (12-20); Blood Urea Nitrogen 5 mg/dL (9-16); Calcium 8.5 mg/dL (8.4-10.2); Carbon Dioxide 24 mmol/L (22-29); Chloride 103 mmol/L (96-108); Creatinine Clr Calc Pharmacy 197.6; Estimated Glomerular Filt Rate > 60; Potassium 3.4 mmol/L (3.3-5.1); Sodium 137 mmol/L (135-145)
[2025-03-30 07:45] VITALS: BP 153/95; PULSE 104; RESP 17; TEMP 36.7; O2SAT 97
--- NOTE | 2025-03-30 08:02 | MHC.CM.PN ---
Patient lives with his /HCP/Nani and will arrange his own transportation to home. Patient is functionally independent and home self care is the goal. CM has initiated and will follow for dc planning. PCP/PA is Benny Lea.Patient may benefit from a Recovery Team Consult R/T ETOH.
[2025-03-30] MEDS: Lactated Ringers 1,000 ML 100 ML IVCONT (08:20)
[2025-03-30] MEDS: Lidocaine 4 % Patch ADH..PATCH 2 PATCH TRANSDERMA (08:27)
[2025-03-30 08:33] LABS: Chlamydia pneumoniae PCR Not Detected (Not Detect.); Coronavirus 229E PCR Not Detected (Not Detect.); Coronavirus HKU1 PCR Not Detected (Not Detect.); Coronavirus NL63 PCR Not Detected (Not Detect.); Coronavirus OC43 PCR Not Detected (Not Detect.); RSV PCR Not Detected (Not Detect.); Rhino/Enterovirus PCR Not Detected (Not Detect.)
[2025-03-30 09:05] LABS: SARS-CoV-2 PCR Not Detected (Not Detect.)
[2025-03-30 09:06] LABS: Influenza A H1 PCR Not Detected (Not Detect.); Influenza A H1-2009 PCR Not Detected (Not Detect.); Influenza A H3 PCR Not Detected (Not Detect.)
--- NOTE | 2025-03-30 09:21 | P.DS_ITS ---
DS: Providers Provider Date of Service: 03/30/25 Date of admission: 03/29/25 12:17 Date of discharge: 03/30/25 Primary care physician: Unknown Physician Consults: 03/29/25 12:23 Addiction Medicine Provider Routine Consulting Provider: Addiction Covering Reason for consultation: etoh dependence/withdrawal Has provider been notified: No Attending physician on discharge: Fina Luis DS: Diagnosis Discharge Diagnosis (1) Pericarditis: Status: Acute (2) Leukocytosis: Status: Acute DS: Summary Hospital Course Hospital Course: 34-year-old male with history of chronic pericarditis, alcohol use who presents to the emergency department with multiple complaints. Patient states for the past 1 week he has been having pain in his right shoulder which is worse with movement. In addition he has begun having stabbing pain to the back of his head. He initially thought his shoulder pain was a muscular strain but his pain became worse and so he presented to the emergency department for evaluation. He also endorses chills, no fever. He reports being compliant with his colchicine and prednisone for pericarditis. When asked about his alcohol use he is less than forthcoming stating that he has been drinking ?not that much? lately. He does say that he has been drinking ?some? alcohol to help with his shoulder pain. On arrival to the emergency department he was tachycardic, tachypneic, hypertensive. He received multiple doses of antiemetics, IV narcotics and fluid and his heart rate, blood pressure, and respiratory rate improved lab work significant for leukocytosis of 19,000, potassium of 3.2, D-dimer 721, lactic acid initially 3.7, down to 2.4. Troponin negative, EKG with no acute ischemic changes. CRP also elevated at 13.3. CTA was negative for acute pulmonary embolus, shows likely atelectasis and continued pericardial effusion. Patient had no hypoxia or respiratory symptoms, no urinary symptoms, no abdominal pain or diarrhea. He has remained afebrile. He was started on phenobarbital protocol in the decision was made to admit him to the hospital for further management. Patient meets SIRS criteria, however no evidence of active sepsis or infection. There was no obvious evidence of infection at this time with negative chest x- ray urinalysis and CTA negative. Suspicion was that tachycardia secondary to acute alcohol withdrawal and pain. Possible secondary to acute on chronic inflammatory disease. During evaluation, the patient was found to have history of acute on chronic arthralgias, carrington rash circumferential around the anterior trunk, pericarditis with pericardial effusion, pleurisy (chronic cough with pleuritic chest pain), and intermittent episodes of pyrexia. The patient's episodes seemed to recur after deescalation of prednisone. Possible etiology and differential could be autoimmune mediated, with seronegative results. Possible diagnosis based on Vicky criteria include Still's disease. Suspicion is that right shoulder pain could be secondary to pleurisy versus referred pain from phrenic nerve irritation. CT abdomen and pelvis recently conducted in the past reveals no evidence of hepatosplenomegaly, NAFLD or otherwise. Status at Discharge Functional status at discharge: independent ambulation Overall status at discharge: patient is back to baseline Time Attestation Total time managing care of this patient today: 35 mintues. Discharge Coordination Time (in mins): 15 Quality: Safe Use of Opioids Does Pt have an Active Cancer Diagnosis on the Problem List?: No Quality: Stroke Does the patient have a stroke diagnosis?: No Physical Exam Exam: Exam: General: A&O x3, oriented to time place person and situation, comfortable, no pain Cardiac: S1, S2 auscultated with no S3/4, no MRG. Well perfused. Respiratory: Normal breath sounds auscultated throughout all lung zones, without wheezing, rales. Normal rate. GI/ : No abdominal pain on palpation, no masses or distentions. MSK: Normal ambulation without pain at bony prominences or musculature. right should tender to palpation anterior shoulder joint; no tenderness to surrounding soft tissues, or trapezius Neurological: Normal neurological examination on overview, without obvious CN II-XII abnormalities. Vital Signs: Vital Signs: Last Vital Signs Temp 98.0 F 03/30/25 07:45 Pulse 104 H 03/30/25 07:45 Resp 17 03/30/25 07:45 BP 153/95 H 03/30/25 07:45 Pulse Ox 97 03/30/25 07:45 O2 Del Method Room Air 03/30/25 07:45 BMI result Body Mass Index 30.2 DS: Data Data Completed and Pending Completed studies during hospitalization [Text1]: Procedures Detoxification Services for Substance Abuse Treatment (03/12/25) Excision of Stomach, Pylorus, Via Natural or Artificial Opening Endoscopic, Diagnostic (03/03/25) Extraction of Esophagus, Via Natural or Artificial Opening Endoscopic, Diagnostic (03/03/25) Labs on day of discharge: Laboratory Results - last 24 hr 03/29/25 03/29/25 03/29/25 05:56 08:49 11:09 WBC RBC Hgb Hct MCV MCH MCHC RDW Plt Count MPV Immature Gran % (Auto) Neut % (Auto) Lymph % (Auto) [place] % (Auto) Eos % (Auto) Baso % (Auto) Lymph # (Auto) [place] # (Auto) Eos # (Auto) Baso # (Auto) Abs Immat Gran (auto) Absolute Neuts (auto) Absolute Nucleated RBC Nucleated RBC % (auto) Smear Tech's Comments Sodium Potassium Chloride Carbon Dioxide Anion Gap BUN Creatinine Estim Creat Clear Calc Estimated GFR Random Glucose Lactic Acid 3.7 H* Lactic Acid F/U @ 2Hr 2.4 H* Lactic Acid F/U @ 4Hr Calcium Total Creatine Kinase 42 Urine Color Urine Appearance Urine pH Ur Specific [place] Urine Protein Urine Glucose (UA) Urine Ketones Urine Blood Urine Nitrite Ur Leukocyte Esterase Urine Opiates Screen Ur Buprenorphine Scrn Ur Oxycodone Screen Urine Methadone Screen Urine Fentanyl Screen Ur Barbiturates Screen Ur Phencyclidine Scrn Ur Amphetamines Screen U Benzodiazepines Scrn Urine Cocaine Screen U Marijuana (THC) Screen Respiratory Panel [place] Adenovirus (Rapid PCR) B.pert (TEM-PCR) B.parapertussis DNA PCR C. pneumoniae DNA (PCR) Coronavirus OC43 (PCR) Coronavirus HKU1 (PCR) Coronavirus 229E (PCR) Coronavirus NL63 (PCR) Human Metapneumovir PCR Influenza A (RT-PCR) Influenza A (H1) PCR Influ A (H1/09) PCR Influenza A (H3) PCR Influenza B (RT-PCR) M. pneumoniae (PCR) Parainfluenza 1 (PCR) Parainfluenza 2 (PCR) Parainfluenza 3 (PCR) Parainfluenza 4 (PCR) RSV (PCR) Entero/Rhino (PCR) SARS-CoV-2 RNA (RT-PCR) 03/29/25 03/29/25 03/29/25 11:56 13:28 14:25 WBC RBC Hgb Hct MCV MCH MCHC RDW Plt Count MPV Immature Gran % (Auto) Neut % (Auto) Lymph % (Auto) [place] % (Auto) Eos % (Auto) Baso % (Auto) Lymph # (Auto) [place] # (Auto) Eos # (Auto) Baso # (Auto) Abs Immat Gran (auto) Absolute Neuts (auto) Absolute Nucleated RBC Nucleated RBC % (auto) Smear Tech's Comments Sodium Potassium Chloride Carbon Dioxide Anion Gap BUN Creatinine Estim Creat Clear Calc Estimated GFR Random Glucose Lactic Acid Lactic Acid F/U @ 2Hr Lactic Acid F/U @ 4Hr 3.3 H* Calcium Total Creatine Kinase Urine Color Yellow Urine Appearance Clear Urine pH 7.5 Ur Specific [place] 1.020 Urine Protein Negative Urine Glucose (UA) Negative Urine Ketones Negative Urine Blood Negative Urine Nitrite Negative Ur Leukocyte Esterase Negative Urine Opiates Screen POSITIVE H Ur Buprenorphine Scrn Not Detected Ur Oxycodone Screen Not Detected Urine Methadone Screen Not Detected Urine Fentanyl Screen Not Detected Ur Barbiturates Screen POSITIVE H Ur Phencyclidine Scrn Not Detected Ur Amphetamines Screen Not Detected U Benzodiazepines Scrn Not Detected Urine Cocaine Screen Not Detected U Marijuana (THC) Screen POSITIVE H Respiratory Panel [place] See Note Adenovirus (Rapid PCR) Not Detected B.pert (TEM-PCR) Not Detected B.parapertussis DNA PCR Not Detected C. pneumoniae DNA (PCR) Not Detected Coronavirus OC43 (PCR) Not Detected Coronavirus HKU1 (PCR) Not Detected Coronavirus 229E (PCR) Not Detected Coronavirus NL63 (PCR) Not Detected Human Metapneumovir PCR Not Detected Influenza A (RT-PCR) Not Detected Influenza A (H1) PCR Not Detected Influ A (H1/09) PCR Not Detected Influenza A (H3) PCR Not Detected Influenza B (RT-PCR) Not Detected M. pneumoniae (PCR) Not Detected Parainfluenza 1 (PCR) Not Detected Parainfluenza 2 (PCR) Not Detected Parainfluenza 3 (PCR) Not Detected Parainfluenza 4 (PCR) Not Detected RSV (PCR) Not Detected Entero/Rhino (PCR) Not Detected SARS-CoV-2 RNA (RT-PCR) Not Detected 03/30/25 03/30/25 06:11 08:48 WBC 16.5 H RBC 3.93 L Hgb 11.7 L Hct 35.5 L MCV 90.3 MCH 29.8 MCHC 33.0 RDW 13.8 Plt Count 495 H MPV 8.6 L Immature Gran % (Auto) 0.4 Neut % (Auto) 68.4 Lymph % (Auto) 17.4 L [place] % (Auto) 12.9 H Eos % (Auto) 0.5 Baso % (Auto) 0.4 Lymph # (Auto) 2.9 [place] # (Auto) 2.1 H Eos # (Auto) 0.1 Baso # (Auto) 0.1 Abs Immat Gran (auto) 0.07 H Absolute Neuts (auto) 11.3 H Absolute Nucleated RBC 0.000 Nucleated RBC % (auto) 0.0 Smear Tech's Comments VERIFIED Sodium 137 Potassium 3.4 Chloride 103 Carbon Dioxide 24 Anion Gap 13 BUN 5 L Creatinine 0.58 Estim Creat Clear Calc 197.6 Estimated GFR > 60 Random Glucose 89 Lactic Acid Lactic Acid F/U @ 2Hr Lactic Acid F/U @ 4Hr Calcium 8.5 D Total Creatine Kinase 146 Urine Color Urine Appearance Urine pH Ur Specific [place] Urine Protein Urine Glucose (UA) Urine Ketones Urine Blood Urine Nitrite Ur Leukocyte Esterase Urine Opiates Screen Ur Buprenorphine Scrn Ur Oxycodone Screen Urine Methadone Screen Urine Fentanyl Screen Ur Barbiturates Screen Ur Phencyclidine Scrn Ur Amphetamines Screen U Benzodiazepines Scrn Urine Cocaine Screen U Marijuana (THC) Screen Respiratory Panel [place] Adenovirus (Rapid PCR) B.pert (TEM-PCR) B.parapertussis DNA PCR C. pneumoniae DNA (PCR) Coronavirus OC43 (PCR) Coronavirus HKU1 (PCR) Coronavirus 229E (PCR) Coronavirus NL63 (PCR) Human Metapneumovir PCR Influenza A (RT-PCR) Influenza A (H1) PCR Influ A (H1/09) PCR Influenza A (H3) PCR Influenza B (RT-PCR) M. pneumoniae (PCR) Parainfluenza 1 (PCR) Parainfluenza 2 (PCR) Parainfluenza 3 (PCR) Parainfluenza 4 (PCR) RSV (PCR) Entero/Rhino (PCR) SARS-CoV-2 RNA (RT-PCR) Discharge Plan Discharge Anticipated Discharge Date/Time: 03/30/25 09:22 Patient Disposition: Home, Self-Care Discharge Diagnosis: Suspected acute on chronic on identified inflammatory syndrome; right shoulder pain & ETOH withdrawal syndrome. Referrals: Physician,Unknown J [Primary Care Provider, Medical] - 1 Week Discharge Medications: Continued colchicine 0.6 mg tablet 0.6 mg PO BID 28 Days Qty: 56 0RF sucralfate [Carafate] 1 gram tablet 1 g PO BID Qty: 30 0RF cyanocobalamin (vitamin B-12) [Vitamin B-12] 1,000 mcg Tablet 1,000 mcg PO DAILY Changed prednisone 10 mg tablet 40 mg PO DAILY 14 Days Qty: 56 0RF Discharge Orders: Discharge Order (Routine); Ordered 03/30/25 Ordered By: Fina Luis Diet: Advance to usual diet Activity on Discharge: As tolerated Stand Alone Forms: Patient Portal Discharge page Print Language: Setswana Care Plan Goals: PCP within 1 week Follow up outpatient Cardiology Follow up echocardiography result Follow up results for JAKE/ANCA Refer to rheumatology; possibility for seronegative AI disease - ? Still's disease Health Concerns: Repeated episodes of arthralgia, trunk rash, serositis (pericarditis with effusion, pleurisy), leukocytosis with monocytic/neutrophilic predominance. Plan of Treatment: Increased prednisone to 40 mg OD p.o. for the next 14 days, with progressive taper Assessment: As above, there are no concerning or hematologically deleterious conditions that are active at this time. Patient wishes to be discharged home with close follow-up with PCP, Cardiology. Recommended the patient to also follow up with Rheumatology
--- NOTE | 2025-03-30 10:18 | MHC.CM.PN ---
Patient has been medically cleared for dc to home today/self care.
--- NOTE | 2025-03-30 15:47 | MHC.RECOVRN ---
late entry: Attempted to meet with pt in [id number] following consult placed to Addiction Medicine for AUD. Intention was to discuss alcohol use and recovery/support options. On approach was standing at bedside, packing a backpack and states he is getting ready to discharge. Im just waiting for the nurse to remove this IV . Pt does not appear to be in acute distress and denies withdrawal or pain symptoms at the time of interview. Pt reports he has previously been to [facility] and may consider going back on Naltrexone. He also report possibly going back to AA because something has to change . Pt declined evaluation or need for resources as well as intervention, SINDI, or appt for tx related to AUD at this time. Pt was provided TW's contact information if future questions or concerns arise.
[2025-03-31 15:38] LABS: Proteinase 3 PR3 Antibodies <1.0 AI
[2025-04-02 16:04] LABS: Anti Nuclear Antibody Screen NEGATIVE (NEGATIVE)
== END 2025-03-30 10:45 | disposition home or self-care (01) | DRG 775 ==
LOC: HO.ED 11:59 → HO.EDOVER 12:18 → HO.IMC 14:25
PROVIDERS: Internal Medicine; Admitting Provider Physician Assistant Medical; Emergency Provider Emergency Medicine; Visit Provider Hospitalist
DX: F10.239 Alcohol dependence with withdrawal, unspecified (principal); E87.21 Acute metabolic acidosis; I31.9 Disease of pericardium, unspecified; Y90.6 Blood alcohol level of 120-199 mg/100 ml; R65.10 Systemic inflammatory response syndrome (SIRS) of non-infectious origin without acute organ dysfunction; Z87.891 Personal history of nicotine dependence
CPT/HCPCS: 36415; 70450; 71046; 71275; 72125; 80048; 80053; 80307; 81003; 82550; 83605; 83735; 83880; 84484; 85025; 85027; 85379; 85610; 86021; 86038; 86140; 87040; 87633; 93005; 99285; J1171; J1200; J1650; J1790; J1885; J2270; J2470; J2543; J2560; J3360; J3373; J7120; Q9967

== ENCOUNTER → 2025-03-29 05:33 | Outpatient (BNV) | payer OTHER, SELFPAY | PROVIDERS: Emergency Provider Emergency Medicine; Visit Provider Internal Medicine Cardiovascular Disease | DX: R00.0 Tachycardia, unspecified (principal) | CPT/HCPCS: 93010 ==

== ENCOUNTER → 2025-03-29 06:40 | Outpatient (BNV) | payer OTHER, SELFPAY | PROVIDERS: Emergency Provider Emergency Medicine; Visit Provider Radiology Vascular & Interventional Radiology | DX: R07.89 Other chest pain (principal); I31.39 Other pericardial effusion (noninflammatory); M54.2 Cervicalgia; R51.9 Headache, unspecified; W19.XXXA Unspecified fall, initial encounter; R06.02 Shortness of breath; R07.9 Chest pain, unspecified | CPT/HCPCS: 70450; 71046; 71275; 72125 ==

== ENCOUNTER → 2025-03-29 12:17 | Outpatient (BNV) | payer OTHER, SELFPAY | PROVIDERS: Admitting Provider Physician Assistant Medical; Emergency Provider Emergency Medicine; Visit Provider Physician Assistant Medical | DX: F10.932 Alcohol use, unspecified with withdrawal with perceptual disturbance (principal); I30.9 Acute pericarditis, unspecified | CPT/HCPCS: 99223 ==

== ENCOUNTER 2025-04-01 19:49 | Inpatient (IN) | payer OTHER, SELFPAY ==
--- NOTE | 2025-04-01 | ECG_ITS ---
Test Reason : CP Blood Pressure : */* mmHG Vent. Rate : 116 BPM Atrial Rate : 116 BPM P-R Int : 134 ms QRS Dur : 80 ms QT Int : 322 ms P-R-T Axes : 65 60 63 degrees QTcB Int : 447 ms Sinus tachycardia Otherwise normal ECG When compared with ECG of 29-Mar-2025 05:33, Nonspecific T wave abnormality no longer evident in Inferior leads Referred By: Generic ED Physician Electronically Signed By: DANIELLE MARION
--- NOTE | ~2025-04-01 | CT_ITS ---
CLINICAL HISTORY: fall, etoh CT head without contrast Comparison: CT head 03/29/2025 Findings: No intra-axial mass, midline shift, hydrocephalus, or acute hemorrhage. No significant atrophy-like change or white matter disease. There is no sinus or mastoid fluid. The orbits are unremarkable. No skull fracture. IMPRESSION: 1. No acute intracranial findings. This document has been electronically signed by: Jacob Mckeon MD on 04/01/2025 23:55:39
--- NOTE | ~2025-04-01 | CT_ITS ---
CLINICAL HISTORY: CP, fall, eoth hx reocurrent pericardial effusion CT chest without contrast Comparison: CT chest 03/29/2025 Findings: The heart is normal size. Stable small volume pericardial effusion. The visualized thyroid and mediastinum are unremarkable. Mild circumferential esophageal wall thickening, increased in conspicuity when compared to prior exam. The lungs are clear. The upper abdomen is unremarkable. No acute fractures. IMPRESSION: 1. Stable small volume pericardial effusion. 2. Circumferential thickening of the esophagus, likely esophagitis however evaluation with upper endoscopy should be considered. 3. Stable additional chronic/nonacute findings as above. This document has been electronically signed by: Jacob Mckeon MD on 04/02/2025 00:01:39
--- NOTE | ~2025-04-01 | CT_ITS ---
CLINICAL HISTORY: fall, etoh CT cervical spine without contrast Comparison: CT cervical spine 03/29/2025 Findings: Normal vertebral body alignment. No significant degenerative change. No acute fractures or dislocations. No acute findings on limited view of the intracranial contents. No cervical fluid collections or masses. No consolidation or effusion at the lung apices. IMPRESSION: No acute cervical spine fracture or subluxation. This document has been electronically signed by: Jacob Mckeon MD on 04/01/2025 23:59:49
[2025-04-01 19:55] VITALS: BP 162/82; PULSE 136; O2SAT 99
[2025-04-01 20:10] VITALS: PULSE 119; RESP 27; BMI 28.0
[2025-04-01 20:25] LABS: MANUAL DIFF FLAG NO
[2025-04-01 20:30] LABS: Hematocrit 39.4 % (42.0-52.0); Hemoglobin 13.6 g/dl (14.0-18.0); Imm Gran Abs Auto 0.07 X10*3/uL (0.00-0.03); Imm Gran Pct Auto 0.4 % (0.0-0.4); Lymphocytes Absolute Auto 4.1 X10*3/uL (1.2-4.9); Mean Corpuscular HGB Conc 34.5 g/dl (31.0-36.0); Mean Corpuscular Hemoglobin 29.9 pg (27.0-33.0); Mean Corpuscular Volume 86.6 fL (80.0-98.0); NRBC Abs Auto 0.000 X10*3/uL (0.0-0.012); NRBC Pct Auto 0.0 /100WBC (0.0-0.2); Platelet Count 636 X10*3/uL (160-400); Red Blood Count 4.55 X10*6/uL (4.60-5.80); White Blood Count 19.3 X10*3/uL (4.8-10.8)
--- NOTE | 2025-04-01 20:49 | ED_ITS ---
HPI - Chest Pain General Chief Complaint: Chest Pain Stated Complaint: ETOH, LOC, CP, N/V Time Seen by Provider: 04/01/25 20:28 Source: patient and EMS Mode of arrival: EMS Limitations: no limitations History of Present Illness ED Provider: Dr. Hafsa Saini HPI narrative: Patient comes to the emergency room via ambulance from a friend's house. Patient reporting midsternal chest pain. Patient is known to have history of pericarditis. Patient was hospitalized couple of days ago and then discharged home. Patient states that he has to be discharged because he was afraid that he was going to lose his job if he did not show up to work. Initially within EMS came, they said that patient may need to vague SI statements such as ?I do not want to live anymore, let me go?. However, patient states that he has had this because he has a lot of pain but did not mean it, denies SI or HI. Patient admits that he has been drinking alcohol. Earlier today, patient reports that he was drunk and fell hitting his head. His in the pressure if he lost consciousness. Related Data Home Medications ?Medication ?Instructions ?Recorded ?Confirmed cyanocobalamin (vitamin B-12) 1,000 mcg PO DAILY 03/1203/29/25 1,000 mcg tablet (Vitamin B-12) Previous Rx's ?Medication ?Instructions ?Recorded colchicine 0.6 mg tablet 0.6 mg PO BID 4 weeks #56 ta bs 05/16/24 sucralfate 1 gram tablet (Carafate) 1 g PO BID #30 tab s 03/05/25 prednisone 10 mg tablet 40 mg (4 x 10 mg) PO DAILY 1 4 days 03/30/25 #56 tabs Allergies Allergy/AdvReac Type Severity Reaction Status Date / Time No Known Allergies Allergy Verified 04/01/25 20:14 Review of Systems 2 Review of Systems: Constitutional : No Weight loss, No Fever, No Chills, No Night Sweats, No Fatigue, No Malaise ENT/Mouth : No Hearing loss, No Ear Pain, No Nasal Congestion, No Sinus Pain, No Hoarseness, No sore throat, No Rhinorrhea, No Swallowing Difficulty Eyes: No Eye Pain, No Swelling, No Redness, No Foreign Body, No Discharge, No Vision Changes Cardiovascular : No Chest Pain, No SOB, No Dyspnea on Exertion, No Orthopnea, No Edema, No Palpitations Respiratory : No Cough, No Sputum, No Wheezing, No Smoke Exposure, No Dyspnea Gastrointestinal : No Nausea, No Vomiting, No Diarrhea, No Constipation, No abdominal Pain, No Hematochezia, No Melena Genitourinary : no irregular bleeding, No Dysuria, No Urinary Frequency, No Hematuria, No Urinary Incontinence, No Urgency, No Flank Pain, No Urinary Flow Changes, No Hesitancy Musculoskeletal : No joint pain, No Myalgias, No Joint Swelling Skin : No Skin Lesions, No rash Neuro : No Weakness, No Numbness, No Paresthesias, No Loss of Consciousness, No Dizziness, No Headache Psych : No Anxiety/Panic, No Depression, No SI/HI/AH/VH, No Social Issues, Heme/Lymph: No Bruising, No Bleeding,No Lymphadenopathy Endocrine : No Polyuria, No Polydipsia, No Temperature Intolerance PMFSH Past Medical History Medical History Dysphagia, pharyngoesophageal phase Pericarditis Pericardial effusion Alcohol use disorder, moderate, dependence MDD (major depressive disorder), recurrent episode, moderate Nausea with vomiting Alcohol use disorder Anxiety and depression History of seizure due to alcohol withdrawal ETOH abuse Surgical History History of surgery H/O endoscopy Family History Family History Other Diabetes Social History Social History Household Members: Family Housing: House Do you presently have visiting nurse or other home services: No Alcohol intake: current Alcohol intake frequency: 3 or more drinks per day Alcohol type: hard liquor Patient Tobacco Use Status: Former Tobacco user Tobacco use type: Cigarette e-Cigarette/Vaping Use: Never Used Second Hand Smoke Exposure: No Substance Use Type: Marijuana Advance Directives: Yes Advance Directives on File: Yes Advance Directives Date on File: 11/07/22 service: No Current occupational status: employed Physical Exam 2 Exam: Exam: Appearance: Alert. Oriented X3. Patient is screaming and twisting and flip- floping in his bed, patient is intoxicated Eyes: Pupils equal, round and reactive to light. ENT: Pharynx normal. Neck: Normal inspection. Neck supple. No lymph nodes noted. No crepitus CVS: Normal heart rate and rhythm. Pulses normal. Normal S1 and S2, bedside ultrasound shows a trace pleural effusion,, 3 mm at the most Respiratory: No respiratory distress. Breath sounds normal. No Wheezing. No rales Abdomen: Soft and nontender. No rigidity. No distention. Skin: Skin warm and dry. Normal skin color. Normal skin turgor. Extremities: No lower extremity edema. No Lacerations. No Rash Neuro: Oriented X 3. No motor deficit. No sensory deficit. Moving all extremities. No slurred speech. CN 2 through 12 grossly intact Psych: Anxious, intoxicated Vital Signs: Vital Signs: Last Vital Signs Temp 98.0 F 04/02/25 00:00 Pulse 88 04/02/25 00:00 Resp 23 H 04/02/25 00:00 BP 114/82 04/02/25 00:00 Pulse Ox 98 04/02/25 00:00 O2 Del Method Room Air 04/02/25 00:00 O2 Flow Rate 2 04/01/25 23:04 BMI result Body Mass Index 28.0 Medications Administered Discontinued Medications Generic Name Dose Route Start Last Admin Trade Name Freq PRN Reason Stop Dose Admin Colchicine 0.6 mg 04/01/25 20:44 04/01/25 21:23 Colchicine 0.6 Mg Tablet PO 04/01/25 20:45 0.6 mg ONCE ONE Administration Diazepam 5 mg 04/01/25 20:47 04/01/25 21:12 Diazepam 10 Mg/2 Ml Cartridge IVPUSH 04/01/25 20:48 5 mg STAT STA Administration Diazepam 2.5 mg 04/01/25 21:31 04/01/25 21:36 Diazepam 10 Mg/2 Ml Cartridge IVPUSH 04/01/25 21:32 2.5 mg STAT STA Administration Diphenhydramine HCl 50 mg 04/01/25 21:31 04/01/25 21:36 Diphenhydramine Hcl 50 Mg/Ml Vial IVPUSH 04/01/25 21:32 50 mg ONCE ONE Administration Ibuprofen 600 mg 04/01/25 20:44 04/01/25 21:12 Ibuprofen 600 Mg Tablet PO 04/01/25 20:45 600 mg ONCE ONE Administration Medical Decision Making Medical Decision Making [facility] Narrative: My interpretation of EKG: Sinus tachycardia, heart rate 116, very mild ST segment elevation in all leads, history of pericarditis,, no T-wave inversion, QTC 447 My interpretation of labs: Patient's white blood cell count 19.3, hemoglobin 13.6, hematocrit 39.4, platelets 636. Patient's potassium 3.2, being p.o. repleted. Patient's troponin negative, CPK 7.[address] head of the head and cervical spine did not show any acute abnormality. CT head of the chest: Stable small volume pericardial effusion Patient's vitals stable, blood blood pressure 114/82, heart rate 98, respirations 22, oxygen saturation 99% on room air. Patient is sleeping comfortably. When patient wakes up, he says my chest hurts, and then he goes back to sleep. Overall patient's seems comfortable. It has been noted that patient is having conversations with people for not in the room. Possible ETOH? Hallucinations? Care team consult pending I reviewed patient's medical records. Two days ago, patient was discharged from the hospital. His labs actually look better than when he was discharged. A CTA was done, showed the pericardial effusion , no acute changes. Care team consult pending, as mentioned above, earlier today the patient was hallucinating, possibly secondary to EtOH intoxication? Versus underlying psychiatric history? Patient has been sleeping comfortably with very stable vitals for at least couple of hours. Admission was considered. However, as mentioned above, today lab pardo and his physical presentation is much better than when he was discharged the last time that he was here, couple of days ago. Differential Diagnosis Differential Diagnoses: The differential diagnosis associated with the presentation includes (Pericarditis, pericardial effusion, alcohol intoxication, cocaine use) Admission/Observation Consideration of admission/observation: Escalation of care including admission/observation considered (Given patient's past medical history and presentation, observation was considered.) Lab Data MDM Lab Attestation statement: I reviewed the patient's lab results. 04/01/25 20:21 04/01/25 20:21 Labs: Lab Results 04/01/25 04/01/25 Range/Units 20:21 20:58 WBC 19.3 H (4.8-10.8) X10*3/uL RBC 4.55 L (4.60-5.80) X10*6/uL Hgb 13.6 L (14.0-18.0) g/dl Hct 39.4 L (42.0-52.0) % MCV 86.6 (80.0-98.0) fL MCH 29.9 (27.0-33.0) pg MCHC 34.5 (31.0-36.0) g/dl RDW 14.0 (11.0-16.0) % Plt Count 636 H D (160-400) X10*3/uL MPV 8.3 L (9.4-12.4) fL Immature Gran % (Auto) 0.4 (0.0-0.4) % Neut % (Auto) 71.6 (45-73) % Lymph % (Auto) 21.1 (20-40) % [place] % (Auto) 6.6 (2-11) % Eos % (Auto) 0.1 (0-4) % Baso % (Auto) 0.2 (0-2) % Lymph # (Auto) 4.1 (1.2-4.9) X10*3/uL [place] # (Auto) 1.3 H (0.1-1.2) X10*3/uL Eos # (Auto) 0.0 (0.0-0.4) X10*3/uL Baso # (Auto) 0.0 (0.0-0.2) X10*3/uL Abs Immat Gran (auto) 0.07 H (0.00-0.03) X10*3/uL Absolute Neuts (auto) 13.8 H (2.0-8.3) x10*3/uL Absolute Nucleated RBC 0.000 (0.0-0.012) X10*3/uL Nucleated RBC % (auto) 0.0 (0.0-0.2) /100WBC Sodium 147 H (135-145) mmol/L Potassium 3.2 L (3.3-5.1) mmol/L Chloride 106 (96-108) mmol/L Carbon Dioxide 24 (22-29) mmol/L Anion Gap 20 (12-20) BUN < 3 L (9-16) mg/dL Creatinine 0.80 (0.5-1.4) mg/dL Estim Creat Clear Calc 142.7 Estimated GFR > 60 Random Glucose 116 H (60-115) mg/dL Calcium 9.0 (8.4-10.2) mg/dL Total Bilirubin 0.2 (0.0-1.0) mg/dL AST 35 (5-37) U/L ALT 34 (0-40) U/L Alkaline Phosphatase 79 (39-117) U/L Troponin I High Sens < 2.7 (<3.5-35.0) ng/L C-Reactive Protein 7.87 H (< or = 0.50) mg/dL B-Natriuretic Peptide 14 (<100) pg/mL Total Protein 7.5 (6.5-8.0) g/dL Albumin 4.4 (3.5-5.0) g/dL Salicylates < 5.0 L (15-30) mg/dL Acetaminophen < 3 (<30) mcg/mL Ethyl Alcohol 331 H* mg/dL Independent Interpretation I performed an independent interpretation of an: EKG and CT Scan Critical Care Time Critical Care Time Critical Care Time: Yes Total Critical Care Time: 50 Attestation: I have personally provided critical care time. Time includes review of lab data, radiology results, discussion with consultants, and monitoring for potential decompensation. Intervention performed as documented. Discharge Plan Discharge Clinical Impression: Chest pain, Alcohol intoxication Prescriptions: No Action prednisone 10 mg tablet 40 mg PO DAILY 14 Days Qty: 56 0RF colchicine 0.6 mg tablet 0.6 mg PO BID 28 Days Qty: 56 0RF sucralfate [Carafate] 1 gram tablet 1 g PO BID Qty: 30 0RF cyanocobalamin (vitamin B-12) [Vitamin B-12] 1,000 mcg Tablet 1,000 mcg PO DAILY Print Language: Swedish
[2025-04-01 20:51] LABS: Albumin Level 4.4 g/dL (3.5-5.0); Alkaline Phosphatase 79 U/L (39-117); Anion Gap 20 (12-20); Aspartate Amino Transferase 35 U/L (5-37); Blood Urea Nitrogen < 3 mg/dL (9-16); Calcium 9.0 mg/dL (8.4-10.2); Carbon Dioxide 24 mmol/L (22-29); Chloride 106 mmol/L (96-108); Creatinine Clr Calc Pharmacy 142.7; Estimated Glomerular Filt Rate > 60; Potassium 3.2 mmol/L (3.3-5.1); Sodium 147 mmol/L (135-145); Total Protein 7.5 g/dL (6.5-8.0)
[2025-04-01 20:53] LABS: Troponin-I High Sensitivity < 2.7 ng/L (<3.5-35.0)
[2025-04-01 20:58] LABS: B Type Natriuretic Peptide 14 pg/mL (<100)
--- OUTSIDE RECORDS SUMMARY | 2025-04-01 21:04 | XMS_ITS | Encounter Summary ---
Author Organization [facility] Address [address] [place] [address] Phone Care Team Providers Care Brusher Tender Name Role Phone Noé Huynh BINGO USHER Primary Care Provider + [phone] Wali Long BINGO USHER Primary Care Provider + Reason for Referral * Outpatient Procedure - Closed Specialty Diagnoses / Procedures Referred By Contac t Referred To Contact Radiology Diagnoses Vomiting, intractability of vomiting not specified, presence of nausea not specified, unspecified vomiting type Diarrhea, unspecified type Procedures NM Gastric Emptying Susana Rollins PA Phone: tel: fax: Referral ID Status Reason Start Date Expiration Date Visits Re quested Visits Authorized [id number] Closed 10/11/2021 10/11/2022 1 1 Encounter Details Date Type Department Care Team (Latest Contact Info) Description 10/11/2021 Transcribe Orders Virtual Department [address] [place] [address] Susana Rollins PA 10 [place] [address] Vomiting, intractability of vomiting not specified, presence of nausea not specified, unspecified vomiting type (Primary Dx); Diarrhea, unspecified type Social History Tobacco Use Types Packs/Day Years Used Date Smoking Tobacco: Never Smokeless Tobacco: Never Alcohol Use Standard Drinks/Week Comments Yes 0 (1 standard drink = 0.6 oz pur e alcohol) social Sex and Gender Information Value Date Recorded Sex Assigned at Male 09/27/2019 2:29 PM EST Legal Sex Male 8:59 PM EDT Gender Identity Male 09/27/2019 2:29 PM EST Sexual Orientation Straight 09/27/2019 2: 29 PM EST documented as of this encounter Plan of Treatment Not on file documented as of this encounter Results * NM GASTRIC EMPTYING SOLID PHASE (11/11/2021 1:58 PM EDT) Anatomical Region Laterality Modality Abdomen, Pelvis Nuclear Medicine 11/11/2021 2:02 PM EDT Impressions 11/11/2021 2:03 PM EDT Delayed gastric emptying. Narrative 11/11/2021 2:03 PM EDT COMPARISON: None. DOSE: 0.97 mCi technetium 99m labeled sulfur colloid. NUCLEAR MEDICINE GASTRIC EMPTYING FINDINGS: The patient is given an oral meal of 0.97 mCi of Tc99m labeled sulfur colloid with egg whites, toast, jam and water. Evaluation of gastric emptying over four hours is obtained. At one hour there is 91.8% residual activity in the stomach which is slightly above the normal range. At two hours there is 80.9% residual activity in the stomach which is above the normal range. At four hours there is 43.2% residual activity in the stomach which is above the normal range. No obvious gastroesophageal reflux is seen. NORMAL RANGE One hour 37-90% Two hours 30-60% Four hours 0-10% Procedure Note Antoni Solitario MD - 11/11/2021 COMPARISON: None. DOSE: 0.97 mCi technetium 99m labeled sulfur colloid. NUCLEAR MEDICINE GASTRIC EMPTYING FINDINGS: The patient is given an oral meal of 0.97 mCi of Tc99m labeled sulfurcolloid with egg whites, toast, jam and water. Evaluation of gastricemptying over four hours is obtained. At one hour there is 91.8% residual activity in the stomach which isslightly above the normal range. At two hours there is 80.9% residual activity in the stomach which isabove the normal range. At four hours there is 43.2% residual activity in the stomach which isabove the normal range. No obvious gastroesophageal reflux is seen. NORMAL RANGE One hour 37-90% Two hours 30-60% Four hours 0-10% IMPRESSION: Delayed gastric emptying. us Susana MULLER IMG NM ABDOMEN Final Resul t documented in this encounter Visit Diagnoses Diagnosis Vomiting, intractability of vomiting not specified, presence of nausea not specified, unspecified vomiting type- Primary Diarrhea, unspecified type Vomiting Vomiting alone Diarrhea, unspecified type documented in this encounter Care Teams Brusher Tender Relationship Specialty Start Date End Date Noé Huynh NP [email or web address] PCP - General Family Medicine 09/17/19 Wali Long NP [address] [place] [address] [place] [address] PCP - General Family Medicine 11/11/21 documented as of this encounter Additional Source Comments The information contained in this document represents components of the legal health record. It is not the complete legal health record.[facility]
--- OUTSIDE RECORDS SUMMARY | 2025-04-01 21:04 | XMS_ITS | Clinical Summary ---
Author Organization [facility] Address [address] [address] Phone Care Team Providers Care Environmental Health Physician Name Role Phone Wali Long WEBLOGIC DEVELOPER Primary Care Provider + Allergies Active Allergy [...] topic Medical Devices Not on file Insurance [facility] S[facility] NET PARTIAL ORCARE DIRECT [employer] SAFETY NET PARTIAL ORCARE DIRECT HEALTH SAFETY NET PARTIAL Member Subscriber Plan / Payer (Ef fective 2021-Present) Name:Jack Burns Relation to Subscriber:Self Name:Jack Burns Payer ID:Not on file Group ID:Not on file Type:Medicaid Address: [place] [id number] CONNECTORCARE DIRECT [facility] SAFETY NET [place] [address] CONNECTORCARE DIRECT [facility] Address: [address] [address] HEALTH SAFETY NET PARTIAL [facility] Address: [address] [address] HEALTH SAFETY NET PARTIAL [facility] CONNECTORCARE DIRECT HEALTH SAFETY NET PARTIAL [facility] CONNECTORCARE DIRECT HEALTH SAFETY NET PARTIAL [facility] DIRECT [facility] SAFETY NET PARTIAL Care Teams Environmental Health Physician Relationship Specialty Start Date End Date Wali Long NP [address] [facility] [place] [address] PCP - General Family Medicine 11/11/21 Additional Source Comments The information contained in this document represents components of the legal health record. It is not the complete legal health record.[facility]
--- OUTSIDE RECORDS SUMMARY | 2025-04-01 21:04 | XMS_ITS | Encounter Summary ---
Author Organization [facility] Address [address] [place] [address] Phone Care Team Providers Care Temperature Regulator Pyrometer Name Role Phone Noé Huynh SALES REPRESENTATIVE GAS SERVICE Primary Care Provider [phone] Wali Long SALES REPRESENTATIVE GAS SERVICE Primary Care Provider + Encounter Details Date Type Department Care Team (Late st Contact Info) Description 05/15/2021 Procedure Pass [facility], Ct Scan - [address] [address] Social History Tobacco Use Types Packs/Day Years [...] on file documented as of this encounter Visit Diagnoses Not on filedocumented in this encounter Care Teams Temperature Regulator Pyrometer Relationship Specialty Start Date End Date Noé Huynh SALES REPRESENTATIVE GAS SERVICE [email or web address] PCP - General Family Medicine 09/17/19 Wali Long, JUAN [address] [facility] [place] [address] PCP - General Family Medicine 11/11/21 documented as of this encounter Additional Source Comments The information contained in this document represents components of the legal health record. It is not the complete legal health record.[facility]
--- OUTSIDE RECORDS SUMMARY | 2025-04-01 21:04 | XMS_ITS | Encounter Summary ---
Author Organization [facility] Address [address] [place] [address] Phone Care Team Providers Care History Teacher Name Role Phone Noé Huynh TOWER OBSERVER Primary Care Provider [phone] Wali Long TOWER OBSERVER Primary Care Provider + Encounter Details Date Type Department Care Team (Late st Contact Info) Description 09/09/2021 Procedure Pass [facility] Endoscopy Admitting Dept Virtual Department 30 [place] [address] Social History Tobacco Use Types Packs/Day Years [...] on filedocumented in this encounter Care Teams History Teacher Relationship Specialty Start Date End Date Noé Huynh TOWER OBSERVER [email or web address] PCP - General Family Medicine 09/17/19 Wali Long NP [address] [facility] [place] [address] PCP - General Family Medicine 11/11/21 documented as of this encounter Additional Source Comments The information contained in this document represents components of the legal health record. It is not the complete legal health record.[facility]
--- OUTSIDE RECORDS SUMMARY | 2025-04-01 21:04 | XMS_ITS | Encounter Summary ---
Author Organization [facility] Address [address] [place] [address] Phone Care Team Providers Care Director Of Home Health Services Name Role Phone Noé Huynh FILEMAKER DEVELOPER Primary Care Provider Wali Long FILEMAKER DEVELOPER Primary Care Provider + Encounter Details Date Type Department Care Team (Latest Contact Info) Description 09/17/2019 Transcribe Orders [facility] [address] [address] Susana Rollins PA 10 [place] [address] Abdominal pain, left lower quadrant (Primary Dx); Bloating; Nausea Social History Tobacco Use Types Packs/Day Years Used Date Smoking Tobacco: Never Assessed Sex and Gender Information Value Date Recorded Sex Assigned at Male 09/27/2019 2:29 PM EST Legal Sex Male 8:59 PM EDT Gender Identity Male 09/27/2019 2:29 PM EST Sexual Orientation Straight 09/27/2019 2: 29 PM EST documented as of this encounter Plan of Treatment Not on file documented as of this encounter Results * Lipase (09/17/2019 10:13 AM EST) LIPASE 18 16 - 63 U/L [facility] Blood 09/17/2019 10:1 3 AM EST 09/17/2019 10:17 AM EST us Susana MULLER LAB BLOOD ORDERABLES Final Result [facility] [address] [place] [address] * Comprehensive metabolic panel (09/17/2019 10:13 AM EST) SODIUM 140 133 - 146 mmol/L [facility] POTASSIUM 4.3 3.3 - 5.1 mmol/L [facility] CHLORIDE 104 96 - 108 mmol/L [facility] CO2 27 21 - 35 mmol/L [facility] BUN 6 6 - 19 mg/dL [facility] CREATININE 0.80 0.5 - 1.5 mg/dL [facility] GLUCOSE 72 70 - 99 mg/dL [facility] ALBUMIN 4.4 3.9 - 4.8 g/dL [facility] TOTAL PROTEIN 7.0 6.5 - 8.0 g/dL [facility] CALCIUM 9.2 8.4 - 10.3 mg/dL [facility] ALKALINE PHOSPHATASE 56 39 - 117 U/L [facility] TOTAL BILIRUBIN 0.4 0.0 - 1.2 mg/dL [facility] AST 26 0 - 37 U/L [facility] ALT 15 0 - 40 U/L [facility] GLOBULIN 2.6 1 - 4.8 g/dL [facility] EGFR >120 >59 mL/min/1.7 3m2 [facility] Comment:If patient is black, multiply result by 1.159. Estimated glomerular filtration rate calculated using the CKD-EPI equation. ANION GAP 13 10 - 20 mmol/L [facility] Blood 09/17/2019 10:1 3 AM EST 09/17/2019 10:17 AM EST us Susana MULLER LAB BLOOD ORDERABLES Final Result [address] [address] * CBC (09/17/2019 10:13 AM EST) WBC 5.94 4.00 - 11.00 K/uL [facility] Comment:Note Reference Range updates to all CBC and Differential results. RBC 4.91 4.48 - 5.88 M/uL [facility] HGB 14.8 13.4 - 17.5 g/dL [facility] Comment:Note updated Referen ce Ranges for all CBC and Differential results. HCT 43.8 38.0 - 51.0 % [facility] PLT 377 140 - 430 K/uL [facility] MCV 89.2 78.0 - 97.0 fL [facility] MCH 30.1 25.0 - 33.0 pg [facility] MCHC 33.8 32.0 - 36.0 g/dL [facility] RDW 12.9 11.0 - 15.0 % [facility] MPV 9.4 8.4 - 12.8 fl [facility] NRBC 0.00 0 /100 WBCs [facility] ABSOLUTE NRBC 0.00 0 K/uL [facility] Blood 09/17/2019 10:1 3 AM EST 09/17/2019 10:17 AM EST us Susana MULLER LAB BLOOD ORDERABLES Final Result Performing Organization Address City/State/[facility] Co de Phone Number [facility] [address] [place] [address] documented in this encounter Visit Diagnoses Diagnosis Abdominal pain, left lower quadrant- Primary Bloating Flatulence, eructation, and gas pain Nausea Nausea alone documented in this encounter Care Teams Director Of Home Health Services Relationship Specialty Start Date End Date Noé Huynh NP [email or web address] PCP - General Family Medicine 09/17/19 Wali Long NP [facility] [place] [address] PCP - General Family Medicine 11/11/21 documented as of this encounter Additional Source Comments The information contained in this document represents components of the legal health record. It is not the complete legal health record.[facility]
--- OUTSIDE RECORDS SUMMARY | 2025-04-01 21:04 | XMS_ITS | Encounter Summary ---
Author Organization [facility] Address [address] [address] Phone Care Team Providers Care Jackaroo Name Role Phone Noé Huynh ELECTRIC MOTOR CONTROL ASSEMBLER Primary Care Provider [phone] Wali Long ELECTRIC MOTOR CONTROL ASSEMBLER Primary Care Provider + Reason for Referral * MRI/CAT Scan - Closed Specialty Diagnoses / Procedures Referred By Contac t Referred To Contact Radiology Diagnoses LLQ pain Bloating Nausea Procedures CT Abdomen/Pelvis Susana Rollins PA Phone: tel: fax: Referral ID Status Reason Start Date Expiration Date Visits Re quested Visits Authorized [id number] Closed 09/19/2019 12/18/2019 1 1 Encounter Details Date Type Department Care Team (Latest Contact Info) Description 09/19/2019 Transcribe Orders Virtual Department [address] [place] [address] Susana Rollins PA [address] [place] [address] Bloating (Primary Dx); LLQ pain; Nausea Social History Tobacco Use Types Packs/Day Years Used Date Smoking Tobacco: Never Assessed Sex and Gender Information Value Date Recorded Sex Assigned at Male 09/27/2019 2:29 PM EST Legal Sex Male 8:59 PM EDT Gender Identity Male 09/27/2019 2:29 PM EST Sexual Orientation Straight 09/27/2019 2: 29 PM EST documented as of this encounter Plan of Treatment Scheduled Orders Name Type Priority Associated Diagnoses Orde r Schedule CT Abdomen/Pelvis Imaging Routine LLQ pain Bloating Nausea Expected: 09/19/2019, Expires: 09/19/2020 documented as of this encounter Visit Diagnoses Diagnosis Bloating- Primary Flatulence, eructation, and gas pain LLQ pain Abdominal pain, left lower quadrant Nausea Nausea alone documented in this encounter Care Teams Jackaroo Relationship Specialty Start Date End Date Noé Huynh NP [email or web address] PCP - General Family Medicine 09/17/19 Wali Long NP [facility] [place] [address] PCP - General Family Medicine 11/11/21 documented as of this encounter Additional Source Comments The information contained in this document represents components of the legal health record. It is not the complete legal health record.[facility]
--- OUTSIDE RECORDS SUMMARY | 2025-04-01 21:04 | XMS_ITS | Encounter Summary ---
Author Organization [facility] Address [address] [place] [address] Phone Care Team Providers Care Vice President Medical Affairs Name Role Phone Noé Huynh BRAND INSPECTOR Primary Care Provider [phone] Wali Long BRAND INSPECTOR Primary Care Provider + Encounter Details Date Type Department Care Team (Late st Contact Info) Description 09/30/2019 Procedure Pass [facility] Endoscopy Admitting Dept Virtual Department [address] [place] [address] Social History Tobacco Use Types Packs/Day Years [...] on filedocumented in this encounter Care Teams Vice President Medical Affairs Relationship Specialty Start Date End Date Noé Huynh BRAND INSPECTOR [email or web address] PCP - General Family Medicine 09/17/19 Wali Long NP [address] [facility] [place] [address] PCP - General Family Medicine 11/11/21 documented as of this encounter Additional Source Comments The information contained in this document represents components of the legal health record. It is not the complete legal health record.[facility]
[2025-04-01 21:05] LABS: Alanine Aminotransferase 34 U/L (0-40)
[2025-04-01] MEDS: diazePAM 10 MG/2 ML CARTRIDGE 5 MG IVPUSH (21:12)
[2025-04-01] MEDS: diazePAM 10 MG/2 ML CARTRIDGE 2.5 MG IVPUSH (21:36)
[2025-04-01 21:39] LABS: Acetaminophen LAB < 3 mcg/mL (<30); Salicylate < 5.0 mg/dL (15-30)
[2025-04-01 23:04] VITALS: BP 113/83; PULSE 103; RESP 20; O2SAT 99
[2025-04-02] VITALS: BP 114/82; PULSE 88; RESP 23; TEMP 36.7; O2SAT 98
[2025-04-02 02:41] VITALS: BP 122/78; PULSE 100; RESP 14; TEMP 36.8; O2SAT 100
[2025-04-02] MEDS: Potassium Chloride Packet 20 MEQ PACKET 40 MEQ PO (02:51)
[2025-04-02 04:00] VITALS: BP 120/85; PULSE 104; RESP 20; O2SAT 96
[2025-04-02] MEDS: diazePAM 10 MG/2 ML CARTRIDGE IVPUSH (05:10)
[2025-04-02 06:02] LABS: Magnesium 2.0 mg/dL (1.6-2.6)
[2025-04-02] MEDS: PHENobarbitaL sodium 130 MG/ML IM ONCE 340.8 MG IM (06:21)
[2025-04-02 06:28] VITALS: BP 105/83; PULSE 110; RESP 13; TEMP 36.6; O2SAT 95
--- NOTE | 2025-04-02 06:56 | PM.IMHP ---
History of Present Illness Date of Service: 04/02/25 Attending physician on admission: Chaz Swanson Chief Complaint: chest pain, SI Patient is a 34-year-old male with a past medical history significant for chronic pericarditis and alcohol use, who the ED due to midsternal chest pain EMS. Patient reported vague SI statements to EMS. He later reports that he did not mean it and he was just having a lot of pain. He reports drinking and falling with a head strike yesterday. He was recently admitted for pericarditis/right shoulder pain and discharged home with colchicine and prednisone. His right shoulder pain with suspected to be due to acute on chronic inflammatory syndrome with possible pleurisy. The patient's workup in the ED shows chronic small stable pericardial effusion and esophagitis on CT. Initially he was being observed in the ED for SI pending care eval however he became tachycardic and it is now and alcohol withdrawal therefore will be admitted with care team eval. Review of Systems Constitutional: Constitutional: Denies body ache(s), Denies chills, Denies fatigue, Denies fever(s) and Denies headache(s) Eyes: Eyes: Denies change in vision ENT: Denies headache(s), Denies nasal congestion and Denies sore throat Cardiovascular: Cardiovascular: Reports chest pain, Denies syncope, Denies rapid heart rate, Denies leg edema and Denies dyspnea Respiratory: Respiratory: Denies cough, Denies dyspnea and Denies wheezing Gastrointestinal: Gastrointestinal: Denies abdominal pain, Denies nausea and Denies vomiting Genitourinary: Genitourinary: Denies dysuria and Denies urinary urgency Musculoskeletal: Musculoskeletal: Denies myalgias Integumentary/Breasts: Skin/Breast: Denies rash Neurologic: Denies confusion, Denies syncope and Denies headache(s) Psychiatric: Psychiatric: Denies confusion Endocrine: Endocrine: Denies fatigue Hematologic/Lymphatic: Hematologic/Lymphatic: Denies easy bleeding and Denies easy bruising Allergic/Immunologic: Allergic/Immunologic: Denies wheezing PMFSH Medical History Dysphagia, pharyngoesophageal phase Pericarditis Pericardial effusion Alcohol use disorder, moderate, dependence MDD (major depressive disorder), recurrent episode, moderate Nausea with vomiting Alcohol use disorder Anxiety and depression History of seizure due to alcohol withdrawal ETOH abuse Functional capacity: independent ambulation Family History Other Diabetes Surgical History History of surgery H/O endoscopy Social History Household Members: Family Housing: House Do you presently have visiting nurse or other home services: No Alcohol intake: current Alcohol intake frequency: 3 or more drinks per day Alcohol type: hard liquor Patient Tobacco Use Status: Former Tobacco user Tobacco use type: Cigarette Smoked in Last 30 Days: Yes e-Cigarette/Vaping Use: Never Used Second Hand Smoke Exposure: No Use of substances other than those prescribed or required for medical reasons: No Substance Use Type: Marijuana Advance Directives: Yes Advance Directives on File: Yes Advance Directives Date on File: 11/07/22 Do you have a plan to hurt others: No Plan service: No Current occupational status: employed Meds Allergies Allergy/AdvReac Type Severity Reaction Status Date / Time No Known Allergies Allergy Verified 04/01/25 20:14 Active Medications: Current Medications Calcium Carbonate (Calcium Carbonate 750 Mg Tab.Chew) 750 mg PO Q4H PRN PRN Reason: Heartburn Enoxaparin Sodium (Enoxaparin Sodium 40 Mg/0.4 Ml Syringe) 40 mg SUBCUT Q24H [facility] Folic Acid (Folic Acid 1 Mg Tablet) 1 mg PO DAILY [facility] Stop: 04/05/25 08:59 Lactated Ringer's (Lr) 1,000 mls @ 100 mls/hr IVCONT .Q10H [facility] Magnesium Hydroxide (Milk Of Magnesia 30 Ml Oral.Susp) 30 ml PO DAILY PRN PRN Reason: Constipation Melatonin (Melatonin 3 Mg Tablet) 6 mg PO BEDTIME PRN PRN Reason: Insomnia Multivitamins/Vitamin C (Multivitamin Tablet) 1 tab PO DAILY [facility] Stop: 04/05/25 08:59 Pantoprazole Sodium (Pantoprazole Sodium 40 Mg/10 Ml Vial) 40 mg IVPUSH DAILY@0630 [facility] Pharmacy Consult (Consult Rx Etoh Phenob Im/Po) 1 each MISCELLANE ONCE PRN; Protocol PRN Reason: Consult order Phenobarbital (Phenobarbital 15 Mg Tablet) 45 mg PO BID [facility]; Protocol Stop: 04/04/25 21:01 Phenobarbital (Phenobarbital 15 Mg Tablet) 15 mg PO BID [facility]; Protocol Stop: 04/06/25 21:01 Phenobarbital (Phenobarbital 15 Mg Tablet) 15 mg PO DAILY [facility]; Protocol Stop: 04/08/25 09:01 Phenobarbital Sodium (Phenobarbital Sodium 130 Mg/Ml Vial Im Q3hx2) 256 mg IM Q3H LE; Protocol Stop: 04/02/25 12:01 Sodium Chloride (0.9 % Sodium Chloride Flush 3 Ml Syringe) 3 ml IVFLUSH QSHIFT [facility] Thiamine HCl (Thiamine Hcl 100 Mg Tablet) 100 mg PO DAILY [facility] Stop: 04/05/25 08:59 Home Medications ?Medication ?Instructions ?Recorded ?Confirmed ?Last Taken ?Type cyanocobalamin (vitamin B-12) 1,000 mcg PO DAILY 03/12/25 03/29/25 03/28/25 History 1,000 mcg tablet (Vitamin B-12) Physical Exam Vital Signs and Narrative: Vital Signs: Last Vital Signs Temp 97.9 F 04/02/25 06:28 Pulse 110 H 04/02/25 06:28 Resp 13 04/02/25 06:28 BP 105/83 04/02/25 06:28 Pulse Ox 95 04/02/25 06:28 O2 Del Method Nasal Cannula 04/02/25 06:28 O2 Flow Rate 2 04/02/25 06:28 BMI result Body Mass Index 28.0 General: AOx3, appears uncomfortable Resp: CTA bilaterally CVS: tachy, normal rhythm GI: +BS, NT, no distention Skin: Warm, dry Neuro: Cranial nerves II-XII grossly intact bilaterally. Motor grossly intact bilaterally Extremities: No LE edema Psych: Appropriate affect Const: General: No confusion Orientation/consciousness: No confusion Neuro: General: No confusion Results Labs 04/01/25 20:21 04/01/25 20:21 Labs: Laboratory Results - last 24 hr 04/01/25 04/01/25 20:21 20:58 MCV 86.6 MCH 29.9 MCHC 34.5 RDW 14.0 Plt Count 636 H D MPV 8.3 L Immature Gran % (Auto) 0.4 Neut % (Auto) 71.6 Lymph % (Auto) 21.1 [place] % (Auto) 6.6 Eos % (Auto) 0.1 Baso % (Auto) 0.2 Lymph # (Auto) 4.1 [place] # (Auto) 1.3 H Eos # (Auto) 0.0 Baso # (Auto) 0.0 Abs Immat Gran (auto) 0.07 H Absolute Neuts (auto) 13.8 H Absolute Nucleated RBC 0.000 Nucleated RBC % (auto) 0.0 Anion Gap 20 Estim Creat Clear Calc 142.7 Estimated GFR > 60 Random Glucose 116 H Calcium 9.0 Magnesium 2.0 Total Bilirubin 0.2 AST 35 ALT 34 Alkaline Phosphatase 79 C-Reactive Protein 7.87 H B-Natriuretic Peptide 14 Total Protein 7.5 Albumin 4.4 Salicylates < 5.0 L Acetaminophen < 3 Ethyl Alcohol 331 H* Assessment and Plan (1) Alcohol withdrawal: Status: Acute (2) Recurrent idiopathic pericarditis: Status: Acute (3) Pericardial effusion: Status: Acute (4) Hypokalemia: Status: Acute (5) Suicidal ideation: Status: Acute Plan Patient is a 34-year-old male with a past medical history significant for chronic pericarditis and alcohol use, who the ED due to midsternal chest pain EMS. etoh withdrawal/etoh intoxication/fall - etoh level 331 on admission, starting to exhibit signs and sx of etoh withdrawal - monitor CIWA - head CT/c-spine CT negative - was started on diazepam in ED, now on phenobarb - monitor on tele - hypokalemia, repleated with 40mg PO - mag normal - folic acid, thiamine - addiction med consult - seizure precautions recurrent idiopathic pericarditis/pericardial effusion - stable on CT, small stable pericardial effusion and esophagitis - CRP elevated at 7.87 - continue colchicine and prednisone hypokalemia - K 3.2 - given 40meq PO - mag normal - monitor BMP SI - care team eval - psych consult in [facility] - continue sucralfate and pantoprazole med rec pending full code VTE prophy: lovenox Patient with acute alcohol withdrawal complicated by SI statements, requiring admission for at least 2 midnights stay for medication assisted alcohol withdrawal and care team evaluation. Quality Stroke Does the patient have a stroke diagnosis?: No VTE Prior VTE?: No VTE Risk Level:: Medical - moderate - high VTE Device Contraindication: Treatment Not Indicated VTE Drug Contraindication: N/A - Med Ordered
[2025-04-02] MEDS: Lactated Ringers 1,000 ML 100 ML IVCONT (07:09)
--- NOTE | 2025-04-02 08:55 | PC.NURSE ---
Patient requesting to leave AMA refusing detox cleared by care team. Tigered Dr. Donovan regarding wanting to leave AMA. awaiting response .
--- NOTE | 2025-04-02 08:56 | PHA.MEDREC ---
Addendum entered by Benny Hdz, PharmJulianna 04/02/25 11:24: med rec checked by [facility] Original Note: Pharmacy Consult ? Medication Reconciliation Pharmacy has completed the medication reconciliation. Patient was able to confirm his medications. Patient states he is not taking Pantoprazole 40 mg, Colchicine 0.6 mg, Vitamin B-12 1,000mg, Sucralfate 1 gm, Patient confirmed he is only taking Prednisone 40 mg daily. Patient last had his medications yesterday.
--- NOTE | 2025-04-02 09:04 | PM.DS ---
DS: Providers Provider Date of Service: 04/02/25 Date of admission: 04/02/25 06:32 Date of discharge: 04/02/25 Primary care physician: Unknown Physician Consults: 04/01/25 20:24 ED CARE Team Crisis Consult Stat Comment: Reason for consultation: SI 04/02/25 00:55 ED CARE Team Crisis Consult Routine Comment: Reason for consultation: hallucinations 04/02/25 06:32 Consult to Psychiatry Routine Consulting Provider: [facility] [place] Psych Covering Reason for consultation: SI; section 12 04/02/25 07:09 Addiction Medicine Provider Routine Consulting Provider: Addiction Covering Reason for consultation: etoh Has provider been notified: No DS: Diagnosis Discharge Diagnosis (1) Alcohol withdrawal: Status: Acute (2) Recurrent idiopathic pericarditis: Status: Acute (3) Pericardial effusion: Status: Acute (4) Hypokalemia: Status: Acute (5) Suicidal ideation: Status: Acute DS: Summary Hospital Course Hospital Course: from initial hpi: 34-year-old male with a past medical history significant for chronic pericarditis and alcohol use, who the ED due to midsternal chest pain EMS. Patient reported vague SI statements to EMS. He later reports that he did not mean it and he was just having a lot of pain. He reports drinking and falling with a head strike yesterday. He was recently admitted for pericarditis/right shoulder pain and discharged home with colchicine and prednisone. His right shoulder pain with suspected to be due to acute on chronic inflammatory syndrome with possible pleurisy. The patient's workup in the ED shows chronic small stable pericardial effusion and esophagitis on CT. Initially he was being observed in the ED for SI pending care eval however he became tachycardic and it is now and alcohol withdrawal therefore will be admitted with care team eval. hospital course: Patient was admitted for alcohol dependence with acute withdrawal. Was started on phenobarbital protocol. Also treated for acute hypokalemia with replacement, recurrent idiopathic pericarditis with colchicine and prednisone. And seen by care team for evaluation of suicide ideation which has since resolved, cleared by care team. Plan was to continue phenobarbital protocol however patient decided to leave against medical advice he is able to express understanding of the risks of doing so including . Time Attestation Discharge Coordination Time (in mins): 32 Quality: Safe Use of Opioids Does Pt have an Active Cancer Diagnosis on the Problem List?: No Quality: Stroke Does the patient have a stroke diagnosis?: No Physical Exam Exam: Exam: General: AO X 3, no acute distress Resp: CTA bilateral, no accessory muscles used CVS: S1,S2,RRR GI: soft, non tender, non distended Neuro: motor grossly intact, alert Psych: appropriate affect, appropriate insight Vital Signs: Vital Signs: Last Vital Signs Temp 97.9 F 04/02/25 06:28 Pulse 110 H 04/02/25 06:28 Resp 13 04/02/25 06:28 BP 105/83 04/02/25 06:28 Pulse Ox 95 04/02/25 06:28 O2 Del Method Nasal Cannula 04/02/25 06:28 O2 Flow Rate 2 04/02/25 06:28 BMI result Body Mass Index 28.0 DS: Data Data Completed and Pending Completed studies during hospitalization [Text1]: Procedures Detoxification Services for Substance Abuse Treatment (03/12/25) Excision of Stomach, Pylorus, Via Natural or Artificial Opening Endoscopic, Diagnostic (03/03/25) Extraction of Esophagus, Via Natural or Artificial Opening Endoscopic, Diagnostic (03/03/25) Labs on day of discharge: Laboratory Results - last 24 hr 04/01/25 04/01/25 20:21 20:58 WBC 19.3 H RBC 4.55 L Hgb 13.6 L Hct 39.4 L MCV 86.6 MCH 29.9 MCHC 34.5 RDW 14.0 Plt Count 636 H D MPV 8.3 L Immature Gran % (Auto) 0.4 Neut % (Auto) 71.6 Lymph % (Auto) 21.1 [place] % (Auto) 6.6 Eos % (Auto) 0.1 Baso % (Auto) 0.2 Lymph # (Auto) 4.1 [place] # (Auto) 1.3 H Eos # (Auto) 0.0 Baso # (Auto) 0.0 Abs Immat Gran (auto) 0.07 H Absolute Neuts (auto) 13.8 H Absolute Nucleated RBC 0.000 Nucleated RBC % (auto) 0.0 Sodium 147 H Potassium 3.2 L Chloride 106 Carbon Dioxide 24 Anion Gap 20 BUN < 3 L Creatinine 0.80 Estim Creat Clear Calc 142.7 Estimated GFR > 60 Random Glucose 116 H Calcium 9.0 Magnesium 2.0 Total Bilirubin 0.2 AST 35 ALT 34 Alkaline Phosphatase 79 Troponin I High Sens < 2.7 C-Reactive Protein 7.87 H B-Natriuretic Peptide 14 Total Protein 7.5 Albumin 4.4 Salicylates < 5.0 L Acetaminophen < 3 Ethyl Alcohol 331 H* Discharge Plan Discharge Anticipated Discharge Date/Time: 04/02/25 09:02 Patient Disposition: Left Against Medical Advice Discharge Diagnosis: etoh withdrawal Referrals: Physician,Unknown J [Primary Care Provider, Medical] - 1 Week Discharge Medications: No Action prednisone 10 mg tablet 40 mg PO DAILY 14 Days Qty: 56 0RF Discharge Orders: Discharge Order (Routine); Ordered 04/02/25 Ordered By: Devon Wright Print Language: [place]i Care Plan Goals: recovery Health Concerns: etoh Plan of Treatment: plan was for inpaitent treatment, left ama Assessment: see above
--- NOTE | 2025-04-02 17:05 | MHC.RECOVRN ---
TW called pt at approximately 1630. Consult was placed to Addiction Medicine for AUD, however pt was a self directed discharge prior to meeting with TW. Pt answered phone and reports he is currently in the [place] drinking 6 pints of fireball . He states he left the hospital because he was in extreme pain and they just left me there and gave me Tylenol . He also reports he had to leave because he has been staying in [place] and didn't want all of his belongings stolen, it's the only stuff I have . Pt reports ongoing chest pain relieved by consuming alcohol. Pt was encouraged to return to the hospital. Pt states he wants treatment and is sick of living like this . Pt was reassured that hospital staff want to help him get obtain his goals. Pt was encouraged to call an ambulance and return to the hospital. Pt agrees and states he will call an ambulance after he packs his belongings.
--- NOTE | 2025-04-02 17:15 | MHC.RECOVRN ---
TW called pt back to follow up on previous discussion about returning to hospital. Pt reports he is with the ambulance now and on his way. EMT spoke w/ TW to confirm they have the pt and and determine pt's chief complaint. TW relayed pt previously left AMA and reporting ongoing chest pain. EMT reports they are en route to [facility] [place].
== END 2025-04-02 09:42 | disposition left against medical advice (07) | DRG 770 ==
LOC: HO.ED 04-02 06:41 → HO.EDOVER 04-02 07:39
PROVIDERS: Emergency Medicine; Admitting Provider Hospitalist; Emergency Provider Emergency Medicine; Visit Provider Internal Medicine
DX: F10.239 Alcohol dependence with withdrawal, unspecified (principal); I31.9 Disease of pericardium, unspecified; F10.229 Alcohol dependence with intoxication, unspecified; R45.851 Suicidal ideations; Y90.8 Blood alcohol level of 240 mg/100 ml or more; E87.6 Hypokalemia; Z87.891 Personal history of nicotine dependence
CPT/HCPCS: 36415; 70450; 71250; 72125; 80053; 80143; 80179; 80307; 83735; 83880; 84484; 85025; 86140; 93005; 99285; J0131; J1200; J1650; J2560; J3360; J7120; S9485

== ENCOUNTER → 2025-04-01 20:05 | Outpatient (BNV) | payer OTHER, SELFPAY | PROVIDERS: Admitting Provider Hospitalist; Emergency Provider Emergency Medicine; Visit Provider Internal Medicine | DX: R00.0 Tachycardia, unspecified (principal) | CPT/HCPCS: 93010 ==

== ENCOUNTER → 2025-04-01 20:50 | Outpatient (BNV) | payer OTHER, SELFPAY | PROVIDERS: Emergency Provider Emergency Medicine; Visit Provider Radiology Diagnostic Radiology | DX: I31.39 Other pericardial effusion (noninflammatory) (principal); F10.129 Alcohol abuse with intoxication, unspecified; V17.2XXA Unspecified pedal cyclist injured in collision with fixed or stationary object in nontraffic accident, initial encounter | CPT/HCPCS: 70450; 71250; 72125 ==

== ENCOUNTER → 2025-04-02 06:32 | Outpatient (BNV) | payer OTHER, SELFPAY | PROVIDERS: Admitting Provider Hospitalist; Emergency Provider Emergency Medicine; Visit Provider Internal Medicine | DX: F10.939 Alcohol use, unspecified with withdrawal, unspecified (principal); I30.0 Acute nonspecific idiopathic pericarditis; I31.39 Other pericardial effusion (noninflammatory); E87.6 Hypokalemia; R45.851 Suicidal ideations; Z53.29 Procedure and treatment not carried out because of patient's decision for other reasons | CPT/HCPCS: 99223; 99499 ==

== ENCOUNTER 2025-04-02 17:25 | Emergency (ER) | payer OTHER, SELFPAY ==
--- NOTE | 2025-04-02 | ECG_ITS ---
Test Reason : CP Blood Pressure : */* mmHG Vent. Rate : 119 BPM Atrial Rate : 119 BPM P-R Int : 138 ms QRS Dur : 74 ms QT Int : 328 ms P-R-T Axes : 31 41 78 degrees QTcB Int : 461 ms Sinus tachycardia Nonspecific T wave abnormality Abnormal ECG When compared with ECG of 01-Apr-2025 20:05, No significant change was found Referred By: Maida Ballesteros Electronically Signed By: DANIELLE MARION
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
--- NOTE | ~2025-04-02 | CT_ITS ---
CLINICAL HISTORY: [facility] CT abdomen and pelvis with contrast Comparison: 02/10/2025 Findings: Cardiomegaly with small pericardial effusion. No acute bony abnormalities. Lung bases clear. Fatty infiltration of the liver without focal abnormality. Pancreas, Spleen and adrenal glands unremarkable. Gallbladder is within normal limits. No significant focal renal abnormalities. Renal cysts, no stones or hydronephrosis. Abdominal aorta is normal in caliber. No free fluid or adenopathy in the pelvis. No diverticulitis. Appendix unremarkable. Impression: Cardiomegaly with small pericardial effusion No acute process in the abdomen This document has been electronically signed by: Kennedy Alford MD on 04/02/2025 20:42:18
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
[2025-04-02 17:36] VITALS: BP 131/103; BP 160/100; PULSE 113; PULSE 120; RESP 16; TEMP 36.8; O2SAT 100; O2SAT 98; BMI 29.0
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
[2025-04-02 19:00] VITALS: BP 136/99; PULSE 112; RESP 15; O2SAT 97
[2025-04-02] MEDS: iohexoL 350 MG/ML 100 ML INFUS..BTL IV (19:00)
[2025-04-02 19:10] LABS: Hematocrit 40.0 % (42.0-52.0); Hemoglobin 13.2 g/dl (14.0-18.0); Imm Gran Abs Auto 0.08 X10*3/uL (0.00-0.03); Imm Gran Pct Auto 0.4 % (0.0-0.4); Lymphocytes Absolute Auto 0.8 X10*3/uL (1.2-4.9); MANUAL DIFF FLAG SCAN; Mean Corpuscular HGB Conc 33.0 g/dl (31.0-36.0); Mean Corpuscular Hemoglobin 29.4 pg (27.0-33.0); Mean Corpuscular Volume 89.1 fL (80.0-98.0); NRBC Abs Auto 0.000 X10*3/uL (0.0-0.012); NRBC Pct Auto 0.0 /100WBC (0.0-0.2); Platelet Count 582 X10*3/uL (160-400); Red Blood Count 4.49 X10*6/uL (4.60-5.80); SCAN SMEAR FLAG 1; White Blood Count 22.0 X10*3/uL (4.8-10.8)
[2025-04-02 19:15] LABS: Anion Gap 16 (12-20); Blood Urea Nitrogen 3 mg/dL (9-16); Calcium 8.5 mg/dL (8.4-10.2); Carbon Dioxide 23 mmol/L (22-29); Chloride 102 mmol/L (96-108); Creatinine Clr Calc Pharmacy 190.2; Estimated Glomerular Filt Rate > 60; Potassium 3.1 mmol/L (3.3-5.1); Sodium 138 mmol/L (135-145)
[2025-04-02] MEDS: Potassium Chloride ER 20 MEQ TAB.ER.PRT 40 MEQ PO (19:30)
[2025-04-02 20:00] VITALS: BP 122/89; PULSE 116; RESP 16; O2SAT 99
--- NOTE | 2025-04-02 20:54 | MHC.EDTECH ---
Pt refused vitals at this time, no reason given, RN made aware
[2025-04-02 21:30] VITALS: BP 128/61; PULSE 106; RESP 17; TEMP 36.8; O2SAT 99
== END 2025-04-02 21:30 | disposition home or self-care (01) ==
PROVIDERS: Emergency Provider Emergency Medicine
DX: I30.0 Acute nonspecific idiopathic pericarditis (principal); F10.129 Alcohol abuse with intoxication, unspecified; Y90.7 Blood alcohol level of 200-239 mg/100 ml; R07.9 Chest pain, unspecified; T14.90XA Injury, unspecified, initial encounter; V17.0XXA Pedal cycle driver injured in collision with fixed or stationary object in nontraffic accident, initial encounter; Y93.9 Activity, unspecified; Y92.9 Unspecified place or not applicable; Y99.9 Unspecified external cause status
CPT/HCPCS: 36415; 70450; 71275; 72125; 74177; 80048; 80307; 85025; 93005; 96361; 96374; 99285; J0131; Q9967

== ENCOUNTER → 2025-04-02 17:37 | Outpatient (BNV) | payer OTHER, SELFPAY | PROVIDERS: Emergency Provider Emergency Medicine; Visit Provider Internal Medicine | DX: R00.0 Tachycardia, unspecified (principal) | CPT/HCPCS: 93010 ==

== ENCOUNTER → 2025-04-02 18:03 | Outpatient (BNV) | payer OTHER, SELFPAY | PROVIDERS: Emergency Provider Emergency Medicine; Visit Provider Radiology Diagnostic Radiology | DX: Z04.3 Encounter for examination and observation following other accident (principal); I51.7 Cardiomegaly; J90 Pleural effusion, not elsewhere classified | CPT/HCPCS: 70450; 71275; 72125; 74177 ==

== ENCOUNTER 2025-05-05 21:51 | Emergency (ER) | payer OTHER, SELFPAY ==
--- NOTE | 2025-05-05 | ECG_ITS ---
Test Reason : CP Blood Pressure : */* mmHG Vent. Rate : 115 BPM Atrial Rate : 115 BPM P-R Int : 144 ms QRS Dur : 84 ms QT Int : 318 ms P-R-T Axes : 50 45 34 degrees QTcB Int : 439 ms Sinus tachycardia Nonspecific T wave abnormality Abnormal ECG When compared with ECG of 02-Apr-2025 17:37, Nonspecific T wave abnormality now evident in Inferior leads Referred By: Anila Cast Electronically Signed By: DANIELLE MARION
--- NOTE | ~2025-05-05 | XR_ITS ---
CLINICAL HISTORY: cp --- Additional Notes or Special Instructions: Upright CXR to evaluate for free air 1 view chest x-ray Comparison: CT/REG/SR - CT ANGIO CHEST PE PROTOCOL - 04/02/25 18:31 EDT Findings: Low lung volumes. No effusion or pneumothorax. No focal infiltrate. Unchanged mild cardiomegaly. No acute fracture. IMPRESSION: 1. No acute findings. Low lung volumes. 2. Persistent mild cardiomegaly. This document has been electronically signed by: Manish Mcconnell MD on 05/06/2025 00:30:01
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
[2025-05-05 22:26] VITALS: BP 170/110; PULSE 130; O2SAT 98; BMI 29.1
[2025-05-05 22:29] LABS: MANUAL DIFF FLAG NO
[2025-05-05 22:39] LABS: Hematocrit 40.9 % (42.0-52.0); Hemoglobin 13.8 g/dl (14.0-18.0); Imm Gran Abs Auto 0.04 X10*3/uL (0.00-0.03); Imm Gran Pct Auto 0.4 % (0.0-0.4); Lymphocytes Absolute Auto 1.6 X10*3/uL (1.2-4.9); Mean Corpuscular HGB Conc 33.7 g/dl (31.0-36.0); Mean Corpuscular Hemoglobin 28.4 pg (27.0-33.0); Mean Corpuscular Volume 84.2 fL (80.0-98.0); NRBC Abs Auto 0.000 X10*3/uL (0.0-0.012); NRBC Pct Auto 0.0 /100WBC (0.0-0.2); Platelet Count 486 X10*3/uL (160-400); Red Blood Count 4.86 X10*6/uL (4.60-5.80); White Blood Count 10.1 X10*3/uL (4.8-10.8)
--- OUTSIDE RECORDS SUMMARY | 2025-05-05 22:41 | XMS_ITS | Encounter Summary ---
Author Organization [facility] Address [address] [place] [id number] Phone Care Team Providers Care Physical Education Aide Name Role Phone Noé Huynh HOT WALKER Primary Care Provider [phone] Wali Long HOT WALKER Primary Care Provider + Encounter Details Date Type Department Care Team (Latest Contact Info) Description 09/17/2019 Transcribe Orders [facility] [address] [address] Susana Rollins PA [address] [place] [address] Abdominal pain, left lower quadrant (Primary Dx); [...] EST) LIPASE 18 16 - 63 U/L [facility] Blood 09/17/2019 10:1 3 AM EST 09/17/2019 10:17 AM EST us Susana MULLER LAB BLOOD ORDERABLES Final Result [facility] [address] [place] [address] * Comprehensive metabolic panel (09/17/2019 10:13 AM EST) SODIUM 140 133 - 146 mmol/L [facility] POTASSIUM 4.3 3.3 - 5.1 mmol/L [facility] CHLORIDE 104 96 - 108 mmol/L [facility] CO2 27 21 - 35 mmol/L [facility] BUN 6 6 - 19 mg/dL [facility] CREATININE 0.80 0.5 - 1.5 mg/dL [facility] GLUCOSE 72 70 - 99 mg/dL [facility] ALBUMIN 4.4 3.9 - 4.8 g/dL [facility] TOTAL PROTEIN 7.0 6.5 - 8.0 g/dL [facility] CALCIUM 9.2 8.4 - 10.3 mg/dL [facility] ALKALINE PHOSPHATASE 56 39 - 117 U/L [facility] TOTAL BILIRUBIN 0.4 0.0 - 1.2 mg/dL [facility] AST 26 0 - 37 U/L [facility] ALT 15 0 - 40 U/L [facility] GLOBULIN 2.6 1 - 4.8 g/dL [facility] EGFR >120 >59 mL/min/1.7 3m2 [facility] Comment:If patient is black, multiply result by 1.159. Estimated glomerular filtration rate calculated using the CKD-EPI equation. ANION GAP 13 10 - 20 mmol/L [facility] Blood 09/17/2019 10:1 3 AM EST 09/17/2019 10:17 AM EST us Susana MULLER LAB BLOOD ORDERABLES Final Result [address] [address] * CBC (09/17/2019 10:13 AM EST) WBC 5.94 4.00 - 11.00 K/uL [facility] Comment:Note Reference Range updates to all CBC and Differential results. RBC 4.91 4.48 - 5.88 M/uL [facility] HGB 14.8 13.4 - 17.5 g/dL [facility] Comment:Note updated Referen ce Ranges for all CBC and Differential results. HCT 43.8 38.0 - 51.0 % [facility] PLT 377 140 - 430 K/uL [facility] MCV 89.2 78.0 - 97.0 fL [facility] MCH 30.1 25.0 - 33.0 pg [facility] MCHC 33.8 32.0 - 36.0 g/dL [facility] RDW 12.9 11.0 - 15.0 % [facility] MPV 9.4 8.4 - 12.8 fl [facility] NRBC 0.00 0 /100 WBCs [facility] ABSOLUTE NRBC 0.00 0 K/uL [facility] Blood 09/17/2019 10:1 3 AM EST 09/17/2019 10:17 AM EST us Susana MULLER LAB BLOOD ORDERABLES Final Result Performing Organization Address City/State/[facility] Co de Phone Number [facility] [address] [place] [address] documented in this encounter Visit Diagnoses Diagnosis Abdominal pain, left lower quadrant- Primary Bloating Flatulence, eructation, and gas pain Nausea Nausea alone documented in this encounter Care Teams Physical Education Aide Relationship Specialty Start Date End Date Noé Huynh NP [email or web address] PCP - General Family Medicine 09/17/19 Wali Long NP [facility] [place] [address] PCP - General Family Medicine 11/11/21 documented as of this encounter Additional Source Comments The information contained in this document represents components of the legal health record. It is not the complete legal health record.[facility]
--- OUTSIDE RECORDS SUMMARY | 2025-05-05 22:41 | XMS_ITS | Encounter Summary ---
Author Organization [facility] Address [address] [place] [phone] Phone Care Team Providers Care Claim Approver Name Role Phone Noé Huynh OPERATIONS OFFICER TRUST DEPARTMENT Primary Care Provider [phone] Wali Long OPERATIONS OFFICER TRUST DEPARTMENT Primary Care Provider + Encounter Details Date Type Department Care Team (Late st Contact Info) Description 09/09/2021 Procedure Pass [facility] Endoscopy Admitting Dept Virtual Department [address] [place] [address] Social History Tobacco Use Types Packs/Day Years [...] on filedocumented in this encounter Care Teams Claim Approver Relationship Specialty Start Date End Date Noé Huynh OPERATIONS OFFICER TRUST DEPARTMENT [email or web address] PCP - General Family Medicine 09/17/19 Wali Long NP [address] [facility] [place] [address] PCP - General Family Medicine 11/11/21 documented as of this encounter Additional Source Comments The information contained in this document represents components of the legal health record. It is not the complete legal health record.[facility]
--- OUTSIDE RECORDS SUMMARY | 2025-05-05 22:41 | XMS_ITS | Encounter Summary ---
Author Organization [facility] Address [address] [place] [address] Phone Care Team Providers Care Risk Consulting Treasury Director Name Role Phone Noé Huynh CAMP DINING ROOM ATTENDANT Primary Care Provider [phone] Wali Long CAMP DINING ROOM ATTENDANT Primary Care Provider + Encounter Details Date Type Department Care Team (Late st Contact Info) Description 05/15/2021 Procedure Pass [facility], Ct Scan - [address] [address] Social History Tobacco Use Types Packs/Day Years [...] on filedocumented in this encounter Care Teams Risk Consulting Treasury Director Relationship Specialty Start Date End Date Néo Huynh CAMP DINING ROOM ATTENDANT [email or web address] PCP - General Family Medicine 09/17/19 Wali Long, JUAN [address] [facility] [address] PCP - General Family Medicine 11/11/21 documented as of this encounter Additional Source Comments The information contained in this document represents components of the legal health record. It is not the complete legal health record.[facility]
--- OUTSIDE RECORDS SUMMARY | 2025-05-05 22:41 | XMS_ITS | Encounter Summary ---
Author Organization [facility] Address [address] [place] [address] Phone Care Team Providers Care Hvac Sales Engineer Name Role Phone Noé Huynh OPERATIONS AND MAINTENANCE SUPERVISOR Primary Care Provider [phone] Wali Long OPERATIONS AND MAINTENANCE SUPERVISOR Primary Care Provider + Encounter Details Date Type Department Care Team (Late st Contact Info) Description 09/30/2019 Procedure Pass [facility] Endoscopy Admitting Dept Virtual Department [address] [place] [address] Social History Tobacco Use Types Packs/Day Years [...] on filedocumented in this encounter Care Teams Hvac Sales Engineer Relationship Specialty Start Date End Date Noé Huynh OPERATIONS AND MAINTENANCE SUPERVISOR [email or web address] PCP - General Family Medicine 09/17/19 Wali Long NP [address] [facility] [address] PCP - General Family Medicine 11/11/21 documented as of this encounter Additional Source Comments The information contained in this document represents components of the legal health record. It is not the complete legal health record.[facility]
--- OUTSIDE RECORDS SUMMARY | 2025-05-05 22:41 | XMS_ITS | Clinical Summary ---
Author Organization [facility] Address [address] [place] [address] Care Team Providers Care Ophthalmic Dispenser Name Role Phone Benny Lea Primary Care Provider [phone] Allergies No known active allergies Medications apixaban (ELIQUIS) 5 mg tablet 5 mg every 12 hours. 04/04/20 25 Active citalopram (CeleXA) 20 mg tablet Take 20 mg by mouth. 04/09/20 25 025 Active acetaminophen (TYLENOL) 500 mg tablet Take 500 mg by mouth every 4 hours as needed for pain. Active gabapentin (NEURONTIN) 600 mg tablet Take 1 tablet (600 mg total) by mouth 3 times a day. 90 tablet 2 04/14/2025 11:27 AM EDT 04/14/20 25 Active predniSONE (DELTASONE) 20 mg tablet Take 2 tablets (40 mg total) by mouth once a day. 60 tablet 2 04/14/2025 11:27 AM EDT 04/14/20 25 Active sucralfate (CARAFATE) 1 gram tablet Take 2 tablets (2 g total) by mouth 4 times a day (before meals and at bedtime). 240 tablet 2 04/14/2025 11:27 AM EDT 04/14/20 25 Active acetaminophen (TYLENOL) 325 mg tablet Take 3 tablets (975 mg total) by mouth 3 times a day. 04/14/20 25 Active colchicine (COLCRYS) 0.6 mg tablet Take 1 tablet (0.6 mg total) by mouth 2 times a day. 60 tablet 04/14/2025 11:27 AM EDT 04/14/[address] (PROTONIX) 40 mg tablet Take 1 tablet (40 mg total) by mouth 2 times a day. 60 tablet 04/14/2025 11:27 AM EDT 04/14/20 Active methocarbamoL (ROBAXIN) 500 mg tablet Take 1 tablet (500 mg total) by mouth 4 times a day as needed for muscle spasms. 120 tablet 04/14/2025 11:27 AM EDT 04/14/20 Active traZODone (DESYREL) 50 mg tablet Take 1 tablet (50 mg total) by mouth nightly as needed for sleep. 30 tablet 04/14/2025 11:27 AM EDT 04/14/20 Active colchicine (COLCRYS) 0.6 mg tablet Take 1 tablet by mouth 2 times a day. 09/12/19 Discontinued famotidine (PEPCID) 20 mg tablet Take 20 mg by mouth daily. 04/09/20 Discontinued(St op Taking at Discharge) gabapentin (NEURONTIN) 300 mg capsule Take 300 mg by mouth 3 times a day. 04/09/20 Discontinued(St op Taking at Discharge) pantoprazole DR (PROTONIX) 40 mg tablet Take 40 mg by mouth once a day. 01/03/20 025 Discontinued(St op Taking at Discharge) predniSONE (DELTASONE) 5 mg tablet Take 15 mg by mouth once a day. 04/09/20 025 Discontinued(St op Taking at Discharge) sucralfate (CARAFATE) 1 gram tablet Take 1 g by mouth 2 times a day. 04/04/20 025 Discontinued(St op Taking at Discharge) ibuprofen (MOTRIN) 800 mg tablet Take 800 mg by mouth every 6 hours as needed for pain. Discontinued(St op Taking at Discharge) Active Problems Problem Noted Date Diagnosed Date Chronic GERD 04/11/2025 Alcohol use disorder 04/11/2025 Assessment & Plan (04/13/2025 11:26 AM EDT): Home meds: Gabapentin 300 mg 3 times daily, citalopram 20 mg daily History of alcohol use disorder and has not been on Librium in the past and has had withdrawal seizures in the past. He drinks 30-40 beers per day. Patient reported that he had just gone through alcohol withdrawal at [facility] and was referred to a detox facility where he had only stayed for a day before he had to come to the ED for severe pleuritic chest pain. - Continue home citalopram - Increased gabapentin to 400 mg 3 times daily for pain control as under pericarditis section - Thiamine 100 mg daily - Magnesium sulfate IV 2 g daily (04/11-04/13) Assessment & Plan (04/12/2025 1:49 PM EDT): Home meds: Gabapentin 300 mg 3 times daily, citalopram 20 mg daily History of alcohol use disorder and has not been on Librium in the past and has had withdrawal seizures in the past. He drinks 30-40 beers per day. Patient reported that he had just gone through alcohol withdrawal at [facility] and was referred to a detox facility where he had only stayed for a day before he had to come to the ED for severe pleuritic chest pain. - Continue home citalopram -Increased gabapentin to 400 mg 3 times daily for pain control as under pericarditis section - CIWA protocol with oral diazepam and IV diazepam rescue - Thiamine 100 mg daily - Magnesium sulfate IV 2 g daily (04/11-04/13) Assessment & Plan (04/11/2025 4:30 PM EDT): Home meds: Gabapentin 300 mg 3 times daily, citalopram 20 mg daily History of alcohol use disorder and has not been on Librium in the past and has had withdrawal seizures in the past. He drinks 30-40 beers per day. Patient reported that he had just gone through alcohol withdrawal at [facility] and was referred to a detox facility where he had only stayed for a day before he had to come to the ED for severe pleuritic chest pain. - Continue home gabapentin and citalopram - CIWA protocol with oral diazepam and IV diazepam rescue - Thiamine 100 mg daily - Magnesium sulfate IV 2 g daily (04/11-04/13) Assessment & Plan (04/11/2025 1:40 AM EDT): History of alcohol use disorder and has not been on Librium in the past and has had withdrawal seizures in the past. He drinks 30-40 beers per day. He states his last drink was 4 days ago and his only withdrawal manifestation currently is hearing a small amount of voices. He is presenting [place] [facility] where he states that he was recently started on the gabapentin 300 mg. CIWA with oral diazepam with IV rescue Thiamine 100 mg daily Magnesium per CIWA protocol Continue gabapentin 300 mg 3 times daily History of seizure due to alcohol withdrawal 12/2024 Assessment & Plan (04/13/2025 11:26 AM EDT): Home meds: Gabapentin 300 mg 3 times daily, citalopram 20 mg daily History of alcohol use disorder and has not been on Librium in the past and has had withdrawal seizures in the past. He drinks 30-40 beers per day. Patient reported that he had just gone through alcohol withdrawal at [facility] and was referred to a detox facility where he had only stayed for a day before he had to come to the ED for severe pleuritic chest pain. - Continue home citalopram - Increased gabapentin to 400 mg 3 times daily for pain control as under pericarditis section - Thiamine 100 mg daily - Magnesium sulfate IV 2 g daily (04/11-04/13) Assessment & Plan (04/12/2025 1:49 PM EDT): Home meds: Gabapentin 300 mg 3 times daily, citalopram 20 mg daily History of alcohol use disorder and has not been on Librium in the past and has had withdrawal seizures in the past. He drinks 30-40 beers per day. Patient reported that he had just gone through alcohol withdrawal at [facility] and was referred to a detox facility where he had only stayed for a day before he had to come to the ED for severe pleuritic chest pain. - Continue home citalopram -Increased gabapentin to 400 mg 3 times daily for pain control as under pericarditis section - CIWA protocol with oral diazepam and IV diazepam rescue - Thiamine 100 mg daily - Magnesium sulfate IV 2 g daily (04/11-04/13) Assessment & Plan (04/11/2025 4:30 PM EDT): Home meds: Gabapentin 300 mg 3 times daily, citalopram 20 mg daily History of alcohol use disorder and has not been on Librium in the past and has had withdrawal seizures in the past. He drinks 30-40 beers per day. Patient reported that he had just gone through alcohol withdrawal at [facility] and was referred to a detox facility where he had only stayed for a day before he had to come to the ED for severe pleuritic chest pain. - Continue home gabapentin and citalopram - CIWA protocol with oral diazepam and IV diazepam rescue - Thiamine 100 mg daily - Magnesium sulfate IV 2 g daily (04/11-04/13) Assessment & Plan (04/11/2025 1:40 AM EDT): History of alcohol use disorder and has not been on Librium in the past and has had withdrawal seizures in the past. He drinks 30-40 beers per day. He states his last drink was 4 days ago and his only withdrawal manifestation currently is hearing a small amount of voices. He is presenting to [place] from [facility] where he states that he was recently started on the gabapentin 300 mg. CIWA with oral diazepam with IV rescue Thiamine 100 mg daily Magnesium per CIWA protocol Continue gabapentin 300 mg 3 times daily History of pulmonary embolism 04/11/2025 Assessment & Plan (04/13/2025 6:55 AM EDT): Home meds: Eliquis 5 mg twice daily Patient was diagnosed with PE 04/03 and he was placed on Eliquis for this which he has been taking regularly. Unknown if it was provoked or unprovoked. CT scan [facility] showing no evidence of pulmonary emboli. - Resumed Eliquis 5 mg BID 04/11 - Outpatient [facility] Assessment & Plan (04/12/2025 8:28 AM EDT): Home meds: Eliquis 5 mg twice daily Patient was diagnosed with PE 04/03 and he was placed on Eliquis for this which he has been taking regularly. Unknown if it was provoked or unprovoked. CT scan [facility] showing no evidence of pulmonary emboli. - Resumed Eliquis 5 mg BID 04/11 - Outpatient hematology follow up at [facility] Assessment & Plan (04/11/2025 4:30 PM EDT): Home meds: Eliquis 5 mg twice daily Patient was diagnosed with PE 04/03 and he was placed on Eliquis for this which he has been taking regularly. Unknown if it was provoked or unprovoked. CT scan [facility] showing no evidence of pulmonary emboli. - Resumed Eliquis 5 mg BID 04/11 - Outpatient hematology follow up at [facility] Assessment & Plan (04/11/2025 1:32 AM EDT): Home: Eliquis 5 mg twice daily He reports pulmonary emboli were detected about a year ago and he was placed on Eliquis for this which he has been taking regularly. He has missed some medications due to his transition to alcohol rehab. CT scan [facility] showing no evidence of pulmonary emboli. Given radiographic evidence of resolution of pulmonary emboli and presence of melena with erosive gastritis while on steroids, will hold Eliquis Erosive gastritis 04/11/2025 Assessment & Plan (04/13/2025 6:55 AM EDT): Home: Famotidine 20 mg daily, pantoprazole 40 mg daily, sucralfate 1 g twice daily Patient has been taking NSAIDs for his chronic pleuritic chest pain. He reports that he has been having diarrhea for months and intermittent abdominal pain. He describes recent bowel movement with tarry black stool (without bleeding questions). - Pantoprazole 40 mg oral twice daily - Sucralfate 2 g oral ACHS - Caution with use of NSAIDs Assessment & Plan (04/12/2025 8:28 AM EDT): Home: Famotidine 20 mg daily, pantoprazole 40 mg daily, sucralfate 1 g twice daily Patient has been taking NSAIDs for his chronic pleuritic chest pain. He reports that he has been having diarrhea for months and intermittent abdominal pain. He describes recent bowel movement with tarry black stool (without bleeding questions). - Pantoprazole 40 mg oral twice daily - Sucralfate 2 g oral ACHS - Caution with use of NSAIDs Assessment & Plan (04/11/2025 4:30 PM EDT): Home: Famotidine 20 mg daily, pantoprazole 40 mg daily, sucralfate 1 g twice daily Patient has been taking NSAIDs for his chronic pleuritic chest pain. He reports that he has been having diarrhea for months and intermittent abdominal pain. He describes recent bowel movement with tarry black stool (without bleeding questions). - Pantoprazole 40 mg oral twice daily - Sucralfate 2 g oral ACHS - Caution with use of NSAIDs Assessment & Plan (04/11/2025 1:32 AM EDT): Home: Famotidine 20 mg daily, pantoprazole 40 mg daily He reports that he has been having diarrhea for months and intermittent abdominal pain. He describes recent bowel movement with tarry black stool (without bleeding questions). Carafate 2 g 4 times daily Pantoprazole 40 mg twice daily Monitor stool output Caution with ulcerogenic medications including NSAID and steroid. As documented above, I had a risk-benefit discussion with the patient regarding a trial dose of NSAID. Chronic idiopathic pericarditis 04/10/2025 Assessment & Plan (04/13/2025 11:26 AM EDT): Home: Colchicine 0.6 twice daily, prednisone taper currently on 15 mg daily. Presenting with recurrent idiopathic pericarditis with effusion. States initial episode was 1 year ago with 2.5 L pericardial fluid drained. He states that his doctors did not have a clear cause. He denies a preceding viral illness. States that he is being intermittently maintained on glucocorticoids which help with the pain, but he always has recurrence when they are tapered. He was recently tapered and missed a few doses in transitioning to his alcohol rehab. He states that there were discussions for surgical intervention at [facility], but he was not able to follow-up outpatient. CTPE showed minimal effusion. There is no gross wall sign or other evidence of RV compromise on exam or vitals. TTE 04/11: Trivial/physiologic pericardial effusion. 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 Evidence includes pericardial thickening and respiration-related ventricular septal shift. - Resumed home colchicine 0.6 mg twice daily - Increased prednisone to 40 mg daily - Oxycodone oral 10 mg every 4 hours as needed - Scheduled Tylenol 975 mg 3 times daily - Schedule Robaxin 500 mg 4 times daily for pain - Increased gabapentin from 600 mg 3 times daily - Continuous telemetry - Monitor I&O, daily weight - K>4, Mg>2 - Follow up with outpatient percussion instrument repairer at [facility] & Plan (04/12/2025 1:49 PM EDT): Home: Colchicine 0.6 twice daily, prednisone taper currently on 15 mg daily. Presenting with recurrent idiopathic pericarditis with effusion. States initial episode was 1 year ago with 2.5 L pericardial fluid drained. He states that his doctors did not have a clear cause. He denies a preceding viral illness. States that he is being intermittently maintained on glucocorticoids which help with the pain, but he always has recurrence when they are tapered. He was recently tapered and missed a few doses in transitioning to his alcohol rehab. He states that there were discussions for surgical intervention at [facility], but he was not able to follow-up outpatient. CT PE showed minimal effusion. There is no gross wall sign or other evidence of RV compromise on exam or vitals. I gave one dose of toradol 30 mg with pre-treatment 2 gm carafate and 40 mg protonix IV based on risk benefit discussion with patient regarding provoking more significant GI bleeding especially in view of steroids, eliquis, etoh, and known erosive gastritis. TTE 04/11: Trivial/physiologic pericardial effusion. 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 Evidence includes pericardial thickening and respiration-related ventricular septal shift. - Resumed home colchicine 0.6 mg twice daily - Increased prednisone to 40 mg daily - Hydromorphone oral 2 or 4 mg every 4 hours as needed -Scheduled Tylenol 975 mg 3 times daily -Schedule Robaxin 500 mg 4 times daily for pain -Increased gabapentin from 300 mg 3 times daily to 400 mg 3 times daily to assist with pain - Continuous telemetry - Monitor I&O, daily weight - K>4, Mg>2 - Follow up with outpatient percussion instrument repairer at [facility] (04/11/2025 4:30 PM EDT): Home: Colchicine 0.6 twice daily, prednisone taper currently on 15 mg daily. Presenting with recurrent idiopathic pericarditis with effusion. States initial episode was 1 year ago with 2.5 L pericardial fluid drained. He states that his doctors did not have a clear cause. He denies a preceding viral illness. States that he is being intermittently maintained on glucocorticoids which help with the pain, but he always has recurrence when they are tapered. He was recently tapered and missed a few doses in transitioning to his alcohol rehab. He states that there were discussions for surgical intervention at [facility], but he was not able to follow-up outpatient. CT PE showed minimal effusion. There is no gross wall sign or other evidence of RV compromise on exam or vitals. I gave one dose of toradol 30 mg with pre-treatment 2 gm carafate and 40 mg protonix IV based on risk benefit discussion with patient regarding provoking more significant GI bleeding especially in view of steroids, eliquis, etoh, and known erosive gastritis. TTE 04/11: Trivial/physiologic pericardial effusion. 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 Evidence includes pericardial thickening and respiration-related ventricular septal shift. - Resumed home colchicine 0.6 mg twice daily, can consider increasing colchicine - Increased prednisone to 40 mg daily - Hydromorphone oral 2 or 4 mg every 4 hours as needed - Hydromorphone IV 0.5 mg every 4 hours as needed for breakthrough pain - Continuous telemetry - Monitor I&O, daily weight - K>4, Mg>2 - Follow up with outpatient [facility] Assessment & Plan (04/11/2025 1:32 AM EDT): Home: Colchicine 0.6 twice daily, prednisone 15 mg daily. Presenting with recurrent idiopathic pericarditis with effusion. States initial episode was 1 year ago with 2.5 L pericardial fluid drained. He states that his doctors did not have a clear cause. He denies a preceding viral illness. States that he is being intermittently maintained on glucocorticoids which help with the pain, but he always has recurrence when they are tapered. He was recently tapered and missed a few doses in transitioning to his alcohol rehab. He states that there were discussions for surgical intervention at [facility], but he was not able to follow-up outpatient. CT PE showed minimal effusion. There is no gross wall sign or other evidence of RV compromise on exam or vitals. I gave one dose of toradol 30 mg with pre-treatment 2 gm carafate and 40 mg protonix IV based on risk benefit discussion with patient regarding provoking more significant GI bleeding especially in view of steroids, eliquis, etoh, and known erosive gastritis. Continue home colchicine 0.6 twice daily Increase prednisone to 40 mg daily Pain: oxyodone 5 - 10 mg prn, Hydromorphone 0.5 q 6 h prn breakthrough pain TTE Telemetry, EKG as needed, K>4, Mg> 2, daily weights Resolved Problems Problem Noted Date Diagnosed Date Resolved Date Melena 04/11/2025 04/14/2025 Assessment & Plan (04/13/2025 6:55 AM EDT): Home: Famotidine 20 mg daily, pantoprazole 40 mg daily, sucralfate 1 g twice daily Patient has been taking NSAIDs for his chronic pleuritic chest pain. He reports that he has been having diarrhea for months and intermittent abdominal pain. He describes recent bowel movement with tarry black stool (without bleeding questions). - Pantoprazole 40 mg oral twice daily - Sucralfate 2 g oral ACHS - Caution with use of NSAIDs Assessment & Plan (04/12/2025 8:28 AM EDT): Home: Famotidine 20 mg daily, pantoprazole 40 mg daily, sucralfate 1 g twice daily Patient has been taking NSAIDs for his chronic pleuritic chest pain. He reports that he has been having diarrhea for months and intermittent abdominal pain. He describes recent bowel movement with tarry black stool (without bleeding questions). - Pantoprazole 40 mg oral twice daily - Sucralfate 2 g oral ACHS - Caution with use of NSAIDs Assessment & Plan (04/11/2025 4:30 PM EDT): Home: Famotidine 20 mg daily, pantoprazole 40 mg daily, sucralfate 1 g twice daily Patient has been taking NSAIDs for his chronic pleuritic chest pain. He reports that he has been having diarrhea for months and intermittent abdominal pain. He describes recent bowel movement with tarry black stool (without bleeding questions). - Pantoprazole 40 mg oral twice daily - Sucralfate 2 g oral ACHS - Caution with use of NSAIDs Assessment & Plan (04/11/2025 1:32 AM EDT): Home: Famotidine 20 mg daily, pantoprazole 40 mg daily He reports that he has been having diarrhea for months and intermittent abdominal pain. He describes recent bowel movement with tarry black stool (without bleeding questions). Carafate 2 g 4 times daily Pantoprazole 40 mg twice daily Monitor stool output Caution with ulcerogenic medications including NSAID and steroid. As documented above, I had a risk-benefit discussion with the patient regarding a trial dose of NSAID. Encounters Date Type Department Care Team Description 04/10/2025 3:02 PM EDT - 04/14/2025 12:39 PM [place] [address] Carlos Enrique Le MD Conicella, Albert, MD Bloom, Sam J., MD Wakeen, Luke Arakel, MD Patel, Bhavin B., Petra Thakkar MD Pain (Primary Dx); Alcohol use disorder; Alcohol use disorder, severe, dependence (HCC) Discharge Disposition: Another Health Care Institution Not Defined (70) from Last 3 Months Immunizations Immunization Administration Dates Next Due Influenza, Trivalent, MDV, Injectable 05/15/2024 ,05/26/2019,08/20/2018 Tetanus Toxoid, Reduced Diph theria Toxoid, and Acellular Pertussis Vaccine, Adsorbed 09/26/2019 Tetanus and Diphtheria Toxoi ds, Adsorbed, Preservative Free (2 Lf of Tetanus Toxoid and 2 Lf of Diphtheria Toxoid) 02/03/2018 Social History Tobacco Use Types Packs/Day Years Used Date Smoking Tobacco: Never Assessed Sex and Gender Information Value Date Recorded Sex Assigned at Male 04/10/2025 4:35 PM EDT Legal Sex Male 12:02 AM EDT Gender Identity Not on file Sexual Orientation Not on file Last Filed Vital Signs Vital Sign Reading Time Taken Comments Blood Pressure 138/88 04/14/2025 10:19 AM EDT Pulse 87 04/14/2025 10:19 AM EDT Temperature 36.6 C (97.9 F) 04/14/2025 10:19 AM EDT Respiratory Rate 20 04/14/2025 10:19 AM EDT Oxygen Saturation 93% 04/14/2025 10:19 AM EDT Inhaled Oxygen Concentration - - Weight 89.7 kg (197 lb 12 oz) 04/13/2025 5:12 AM EDT Height 172.7 cm (5' 8 ) 04/11/2025 1:10 AM EDT Body Mass Index 30.07 04/11/2025 1:10 AM EDT Plan of Treatment Health Maintenance Due Date Last Done Comments HIV Screening 1991 Hepatitis C Screening 1991 Varicella Vaccines (1 of 2 - 13+ 2-dose series) 12/19/2004 Hepatitis B Vaccines (1 of 3 - 19+ 3-dose series) 12/19/2010 Alcohol/Substance Use Screening 08/07/2024 Depression Screening and Follow-Up 08/07/2024 Social Drivers of Health Annual Screening 08/07/2024 COVID-19 Vaccine ( - season) 2025 Influenza Vaccine (#1) 2025 , 05/26/2019, 08/20/2018 Basic Metabolic Panel 04/14/2026 04/14/2025 , 04/13/2025, 04/12/2025, Additional history exists DTaP,Tdap,and Td Vaccines (2 - Td or Tdap) 09/26/2029 09/26/2019, 02/03/2018 RSV Vaccine (60+ years old and patients) (1 - 1-dose 75+ series) 12/19/2066 Pneumococcal Vaccine: Pediatric (0-5 Years) and At-Risk Patients (6-50 Years) Aged Out No longer eligible based on patient's age to complete this topic Procedures * Due to [place] state law, this organization might not be sharing negative HIV tests. Procedure Name Priority Date/Time Associated Diagnosis Comments PHOSPHORUS Routine 04/14/2025 7:27 AM EDT MAGNESIUM Routine 04/14/2025 7:27 AM EDT COMPREHENSIVE METABOLIC PANEL Routine 04/14/2025 7:27 AM EDT CBC AUTO DIFFERENTIAL Routine 04/14/2025 7:27 AM EDT ECG 12-LEAD Routine 04/14/2025 4:23 AM EDT PHOSPHORUS Routine 04/13/2025 7:23 AM EDT MAGNESIUM Routine 04/13/2025 7:23 AM EDT COMPREHENSIVE METABOLIC PANEL Routine 04/13/2025 7:23 AM EDT CBC AUTO DIFFERENTIAL Routine 04/13/2025 7:23 AM EDT ECG 12-LEAD Routine 04/12/2025 9:47 PM EDT PHOSPHORUS Routine 04/12/2025 6:09 AM EDT MAGNESIUM Routine 04/12/2025 6:09 AM EDT COMPREHENSIVE METABOLIC PANEL Routine 04/12/2025 6:09 AM EDT CBC AUTO DIFFERENTIAL Routine 04/12/2025 6:09 AM EDT TRANSTHORACIC ECHO (TTE) COMPLETE W/ CONTRAST STAT 04/11/2025 9:47 AM EDT HEPATIC FUNCTION PANEL STAT Add-on 04/11/2025 8:16 AM EDT CBC Routine 04/11/2025 8:16 AM EDT MAGNESIUM Routine 04/11/2025 8:16 AM EDT RENAL FUNCTION PANEL Routine 04/11/2025 8:16 AM EDT HEPATIC FUNCTION PANEL Add-On 04/10/2025 8:06 PM EDT C-REACTIVE PROTEIN STAT Add-on 04/10/2025 8: 06 PM EDT TROPONIN T HIGH SENSITIVITY STAT 04/10/2025 8:[address] CHEST PULMONARY EMBOLISM W CONTRAST STAT 04/10/2025 7:00 PM EDT TROPONIN T HIGH SENSITIVITY STAT 04/10/2025 5:20 PM EDT ECG 12-LEAD STAT 04/10/2025 4:19 PM EDT TYPE AND SCREEN STAT 04/10/2025 3:13 PM EDT MAGNESIUM STAT 04/10/2025 3:10 PM EDT TROPONIN T HIGH SENSITIVITY STAT 04/10/2025 3:10 PM EDT PROTIME-INR STAT 04/10/2025 3:10 PM EDT CBC AUTO DIFFERENTIAL STAT 04/10/2025 3:10 PM EDT BASIC METABOLIC PANEL STAT 04/10/2025 3:10 PM EDT ECG 12-LEAD STAT 04/10/2025 3:06 PM EDT HEART & VASCULAR - SCANNED 04/10/2025 HEART & VASCULAR - SCANNED 04/10/2025 HEART & VASCULAR - SCANNED 04/10/2025 HEART & VASCULAR - SCANNED 04/10/2025 HEART & VASCULAR - SCANNED 04/10/2025 from Last 3 Months Results * Due to [place] state law, this organization might not be sharing negative HIV tests. * (ABNORMAL) CBC Auto Differential (04/14/2025 7:27 AM EDT) Only the most recent of4 resultswithin the time period is included. WBC 15.8(H) 3.8 - 10.8 10*3/uL 04/14/2025 9:02 AM EDT [facility] [employer] [facility] RBC 4.05(L) 4.20 - 5.80 10*6/uL 04/14/2025 9:02 AM EDT [facility] Hemoglobin 11.7(L) 13.2 - 17.1 g/dL 04/14/2025 9:02 AM EDT [facility] Hematocrit 35.6(L) 38.5 - 50.0 % 04/14/2025 9:02 AM EDT [facility] MCV 87.9 80.0 - 100.0 fL 04/14/2025 9:02 AM EDT [facility] MCH 28.9 27.0 - 33.0 pg 04/14/2025 9:02 AM EDT [facility] MCHC 32.9 32.0 - 36.0 g/dL 04/14/2025 9:02 AM EDT [facility] RDW 14.2 11.0 - 15.0 % 04/14/2025 9:02 AM EDT [facility] Platelets 537(H) 140 - 400 10*3/uL 04/14/2025 9:02 AM EDT [facility] MPV 8.9 7.5 - 12.5 fL 04/14/2025 9:02 AM EDT [facility] Neutrophil % 70.5 % 04/14/2025 9:02 AM EDT [facility] Immature Grans % 0.5 0.0 - 0.9 % 04/14/2025 9:02 AM EDT [facility] Lymphocyte % 16.3 % 04/14/2025 9:02 AM EDT [facility] Monocyte % 11.9 % 04/14/2025 9:02 AM EDT [facility] Eosinophil % 0.5 % 04/14/2025 9:02 AM EDT [facility] Basophil % 0.3 % 04/14/2025 9:02 AM EDT [facility] Neutrophil # 11.16(H) 1.50 - 7.80 10*3/uL 04/14/2025 9:02 AM EDT [facility] Immature Grans # 0.08(H) <=0.03 10*3/uL 04/14/2025 9:02 AM EDT [facility] Lymphocyte # 2.60 0.85 - 3.90 10*3/uL 04/14/2025 9:02 AM EDT [facility] Monocyte # 1.90(H) 0.20 - 0.95 10*3/uL 04/14/2025 9:02 AM EDT [facility] Eosinophil # 0.10 0.02 - 0.50 10*3/uL 04/14/2025 9:02 AM EDT [facility] Basophil # 0.10 0.00 - 0.20 10*3/uL 04/14/2025 9:02 AM EDT [facility] nRBC % 0.0 /100 WBCs 04/14/2025 9:02 AM EDT [facility] nRBC # <0.01 <0.01 10*3/uL 04/14/2025 9:02 AM EDT [facility] Blood Structure of peripheral vein / Unknown Venipuncture / Unknown 04/14/2025 7:27 AM EDT 04/14/2025 8:50 AM EDT us Elio Mijares DO LAB BLOOD ORDERABLES Final Re sult [facility] [employer] CLINICAL PATHOLOGY LABORATORY [address] [place] [address], * Phosphorus (04/14/2025 7:27 AM EDT) Only the most recent of3 resultswithin the time period is included. Phosphorus 3.1 2.5 - 4.5 mg/dL 04/14/2025 9:37 AM EDT [facility] Blood Structure of peripheral vein / Unknown Venipuncture / Unknown 04/14/2025 7:27 AM EDT 04/14/2025 8:41 AM EDT Elio Mijares DO LAB BLOOD ORDERABLES Final Re sult Performing Organization Address City/[facility]/ZIP Co de Phone Number [facility] [address] [place] [address], * Magnesium (04/14/2025 7:27 AM EDT) Only the most recent of5 resultswithin the time period is included. MG 2.0 1.6 - 2.4 mg/dL 04/14/2025 9:37 AM EDT [facility] Blood Structure of peripheral vein / Unknown Venipuncture / Unknown 04/14/2025 7:27 AM EDT 04/14/2025 8:41 AM EDT Elio AlexanderJulienne Wilsonel DO LAB BLOOD ORDERABLES Final Re sult Performing Organization Address [facility] de Phone Number [facility] CL[facility] LAB[facility]ORY [address] [place] [address] * (ABNORMAL) Comprehensive Metabolic Panel (04/14/2025 7:27 AM EDT) Only the most recent of3 resultswithin the time period is included. NA 141 135 - 145 mmol/L 04/14/2025 9:38 AM EDT [facility] K 3.8 3.5 - 5.3 mmol/L 04/14/2025 9:38 AM EDT [facility] Cl 105 98 - 107 mmol/L 04/14/2025 9:38 AM EDT [facility] CO2 22 22 - 32 mmol/L 04/14/2025 9:38 AM EDT [facility] Anion Gap 14 5 - 15 04/14/2025 9:38 AM EDT [facility] Glucose 79 65 - 99 mg/dL 04/14/2025 9:38 AM EDT [facility] Creatinine 0.59(L) 0.60 - 1.30 mg/dL 04/14/2025 9:38 AM EDT [facility] Calcium 9.0 8.6 - 10.5 mg/dL 04/14/2025 9:38 AM EDT [facility] Total Protein 6.4 6.0 - 8.0 g/dL 04/14/2025 9:38 AM EDT [facility] Albumin 3.4(L) 3.5 - 5.2 g/dL 04/14/2025 9:38 AM EDT [facility] Bilirubin, Total <0.2(L) 0.2 - 1.2 mg/dL 04/14/2025 9:38 AM EDT [facility] Alkaline Phosphatase 64 35 - 129 U/L 04/14/2025 9:38 AM EDT [facility] AST 20 10 - 40 U/L 04/14/2025 9:38 AM EDT [facility] ALT 15 10 - 40 U/L 04/14/2025 9:38 AM ED [facility] BUN 5(L) 7 - 23 mg/dL 04/14/2025 9:38 AM EDT [facility] eGFR >90 >=60 mL/min/1 .73m2 04/14/2025 9:38 AM EDT [facility] Comment:The estimated glomer ular filtration rate (eGFR) is calculated using a new formula developed by the NKF-ASN task force to eliminate race-based correction factors. The new formula uses serum/plasma creatinine, age, and gender to determine eGFR. A value below 60mls/min might indicate kidney disease and will be flagged. For additional information, see Len et al, Am J Kidney Dis. 2021;79(2):268- 288, A Unifying Approach for GFR estimation: Recommendations of the NKF-ASN Task Force on Reassessing the Inclusion of Race in Diagnosing Kidney Disease . Globulin, Total 3.0 2.1 - 4.2 g/dL 04/14/2025 9:38 AM EDT [facility] A/G Ratio 1.1(L) 1.5 - 3.0 04/14/2025 9:38 AM EDT [facility] Blood Structure of peripheral vein / Unknown Venipuncture / Unknown 04/14/2025 7:27 AM EDT 04/14/2025 8:41 AM EDT us Elio Mijares DO LAB BLOOD ORDERABLES Final Re sult [facility] [address] [place] [address], * ECG 12 lead (04/14/2025 4:23 AM EDT) Only the most recent of4 resultswithin the time period is included. Ventricular Rate EKG 83 BPM MUSE EKG Atrial Rate 83 BPM MUSE EKG AZ Interval 168 ms MUSE EKG QRS Interval 78 ms MUSE EKG QT Interval 368 ms MUSE EKG QTC Interval 432 ms MUSE EKG P [place] 34 degrees MUSE EKG R [place] 20 degrees MUSE EKG T Wave [place] 4 degrees MUSE EKG 04/14/2025 4:23 AM EDT 04/17/2025 9:02 AM EDT Impressions MUSE EKG - 04/17/2025 9:02 AM EDT NORMAL SINUS RHYTHM WITH SINUS ARRHYTHMIA NONSPECIFIC T WAVE ABNORMALITY ABNORMAL ECG WHEN COMPARED WITH ECG OF 12-Apr-2025 21:47, NONSPECIFIC T WAVE ABNORMALITY NOW EVIDENT IN ANTEROLATERAL LEADS Confirmed by Errol Calderon ([id number]) on 04/17/2025 9:02:57 AM Narrative Procedure Note Errol Calderon MD - 04/17/2025 IMPRESSION: NORMAL SINUS RHYTHM WITH SINUS ARRHYTHMIA NONSPECIFIC T WAVE ABNORMALITY ABNORMAL ECG WHEN COMPARED WITH ECG OF 12-Apr-2025 21:47, NONSPECIFIC T WAVE ABNORMALITY NOW EVIDENT IN ANTEROLATERAL LEADS Confirmed by Errol Calderon ([id number]) on 04/17/2025 9:02:57 AM us [employer] Erlinda RODRÍGUEZ ECG ORDERABLES Final Resu lt MUSE EKG * TRANSTHORACIC ECHO (TTE) COMPLETE W/ CONTRAST (04/11/2025 9:47 AM EDT) BSA 2.07 m2 LVIDD 4.5 cm LVIDS 3.4 cm IVS 1.5 cm LVOT diameter 2.3 cm LVOT area 4.15 cm2 Relative Wall Thickness 0.69 PW 1.6 cm LV Mass Index 141 g/m2 MV Peak E Saud 0.72 m/s MV avg E/e' 7.20 MV Peak A Saud 0.59 m/s E/A ratio 1.20 Lateral e' 0.11 m/s E wave deceleration time 210.5 msec Septal e' 0.09 m/s MV E/E' Tissue Velocity Lateral 6.65 LA Volume Index 16 mL/m2 MV E/e' septal 7.85 LA volume 31 mL LVOT peak saud 0.96 m/s LVOT stroke volume 59 cm3 LV stroke vol index 28.3 mL/m2 LA size 3.8 cm LVOT peak VTI 14.10 cm Ascending aorta 2.6 cm Ao-asc Z score -1.06 LV ED Post Wall 1.60 LV ES Dimension 3.40 LV ED Dimension 4.50 Aortic Valve Diam 2.3 cm Sinus 3.2 cm Aortic Root Z-score -0.27 Dummy BSA 2.03 Anatomical Region Laterality Modality Heart Echocardiography Narrative 04/11/2025 10:39 AM EDT The left ventricle size is normal. Increased left ventricular wall thickness. There is increased relative wall thickness and increased left ventricular mass index, consistent with concentric hypertrophy. Low normal left ventricular systolic function with visually estimated LVEF 50%. Right ventricle size is normal. Normal right ventricular systolic function. Pericardium: Trivial/physiologic pericardial effusion present. 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 Evidence includes pericardial thickening and respiration-related ventricular septal shift. No significant valvular disease was identified. Left Ventricle The left ventricle size is normal. Increased left ventricular wall thickness. There is increased relative wall thickness and increased left ventricular mass index, consistent with concentric hypertrophy. Normal left ventricular wall motion. Low normal left ventricular systolic function with visually estimated LVEF 50%. Unable to assess left ventricular diastolic function. Right Ventricle Right ventricle size is normal. Normal right ventricular systolic function. Left Atrium Left atrium size is normal. Left atrium volume index is 16 mL/m2. Right Atrium Right atrium is normal in size. IVC/SVC IVC is small. Mitral Valve Normal mitral valve without significant regurgitation or stenosis. Tricuspid Valve Tricuspid valve Not well visualized. No significant tricuspid regurgitation. No tricuspid stenosis. Aortic Valve Trileaflet aortic valve without significant regurgitation or stenosis. Pulmonic Valve The pulmonic valve was not well seen. No Doppler evidence of hemodynamically significant pulmonic stenosis or regurgitation. Ascending Aorta The sinuses of Valsalva and ascending aorta are normal. Pericardium Trivial/physiologic pericardial effusion present. 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 Evidence includes pericardial thickening and respiration-related ventricular septal shift. Pulmonary Artery TR jet was inadequate to estimate pulmonary artery pressure. Atrial Septum No interatrial shunt detected by color flow Doppler. Ventricular Septum Ventricular septum is intact. Abnormal septal motion excessive respiratory change. Study Details A complete echo was performed using 2D imaging, color flow Doppler and complete spectral Doppler. During the study the apical, parasternal, subcostal and suprasternal view was captured. Optison contrast was used during the study. Overall the study quality was adequate. Prior Study There is no prior study available for comparison. Sravan Alegria MD CV ECHO PROCEDURES Final R esult * (ABNORMAL) CBC (04/11/2025 8:16 AM EDT) WBC 15.8(H) 3.8 - 10.8 10*3/uL 04/11/2025 8:50 AM EDT [facility] RBC 4.20 4.20 - 5.80 10*6/uL 04/11/2025 8:50 AM EDT [facility] Hemoglobin 12.4(L) 13.2 - 17.1 g/dL 04/11/2025 8:50 AM EDT [facility] Hematocrit 38.9 38.5 - 50.0 % 04/11/2025 8:50 AM EDT [employer] CLINICAL PATHOLOGY LABORATORY MCV 92.6 80.0 - 100.0 fL 04/11/2025 8:50 AM EDT [facility] CL[facility]OLOG[facility] LAB[facility] MCH 29.5 27.0 - 33.0 pg 04/11/2025 8:50 AM EDT [facility] MCHC 31.9(L) 32.0 - 36.0 g/dL 04/11/2025 8:50 AM EDT [facility] RDW 14.7 11.0 - 15.0 % 04/11/2025 8:50 AM EDT [facility] Platelets 380 140 - 400 10*3/uL 04/11/2025 8:50 AM EDT [facility] MPV 8.7 7.5 - 12.5 fL 04/11/2025 8:50 AM EDT [facility] Blood Structure of peripheral vein / Unknown Venipuncture / Unknown 04/11/2025 8:16 AM EDT 04/11/2025 8:32 AM EDT Sravan Alegria MD LAB BLOOD ORDERABLES Final Result [facility] [employer] CL[facility] PATHOLOG[facility] LABORATORY [address] [place] [address], * (ABNORMAL) Hepatic function panel (04/11/2025 8:16 AM EDT) Only the most recent of2 resultswithin the time period is included. Total Protein 6.4 6.0 - 8.0 g/dL 04/11/2025 10:58 AM EDT [facility] Albumin 3.5 3.5 - 5.2 g/dL 04/11/2025 10:58 AM EDT [facility] Globulin, Total 2.9 2.1 - 4.2 g/dL 04/11/2025 10:58 AM EDT [facility] [employer] [employer] [facility] LAB[facility] Bilirubin, Total 0.2 0.2 - 1.2 mg/dL 04/11/2025 10:58 AM EDT [facility] [employer] [facility] LAB[facility] Bilirubin, Direct <0.1 <=0.4 mg/dL 04/11/2025 10:58 AM EDT [facility] [employer] [facility] LAB[facility] Alkaline Phosphatase 72 35 - 129 U/L 04/11/2025 10:58 AM EDT [facility] [employer] [facility] AST 24 10 - 40 U/L 04/11/2025 10:58 AM EDT [facility] [employer] [facility] ALT 17 10 - 40 U/L 04/11/2025 10:58 AM EDT [facility] [employer] [facility] LAB[facility] Bilirubin, Indirect 04/11/2025 10:58 AM EDT [facility] [employer] [facility] LAB[facility] Comment:Unable to calculate A/G Ratio 1.2(L) 1.5 - 3.0 04/11/2025 10:58 AM EDT [facility] [employer] [employer] CL[facility] LAB[facility] Blood Structure of peripheral vein / Unknown Venipuncture / Unknown 04/11/2025 8:16 AM EDT 04/11/2025 8:33 AM EDT us Elio Mijares DO LAB BLOOD ORDERABLES Final Re sult [facility] [employer] CLINICAL PATHOLOGY LABORATORY [address] [place] [address], * (ABNORMAL) Renal Function Panel (04/11/2025 8:16 AM EDT) NA 140 135 - 145 mmol/L 04/11/2025 9:05 AM EDT [employer] CL[facility] PATHOLOG[facility] LAB[facility]AT[facility] K 3.7 3.5 - 5.3 mmol/L 04/11/2025 9:05 AM EDT [facility] LAB[facility] Cl 105 98 - 107 mmol/L 04/11/2025 9:05 AM [facility] CO2 21(L) 22 - 32 mmol/L 04/11/2025 9:05 AM [facility] Anion Gap 14 5 - 15 04/11/2025 9:05 AM [facility] Glucose 84 65 - 99 mg/dL 04/11/2025 9:05 AM [facility] BUN 6(L) 7 - 23 mg/dL 04/11/2025 9:05 AM [facility] Creatinine 0.69 0.60 - 1.30 mg/dL 04/11/2025 9:05 AM [facility] Calcium 9.2 8.6 - 10.5 mg/dL 04/11/2025 9:05 AM [facility] Phosphorus 4.1 2.5 - 4.5 mg/dL 04/11/2025 9:05 AM [facility] Albumin 3.5 3.5 - 5.2 g/dL 04/11/2025 9:05 AM [facility] eGFR >90 >=60 mL/min/1. 73m2 04/11/2025 9:05 AM [facility] Comment:The estimated glomer ular filtration rate (eGFR) is calculated using a new formula developed by the NKF-ASN task force to eliminate race-based correction factors. The new formula uses serum/plasma creatinine, age, and gender to determine eGFR. A value below 60mls/min might indicate kidney disease and will be flagged. For additional information, see Len et al, Am J Kidney Dis. 2021;79(2):268- 288, A Unifying Approach for GFR estimation: Recommendations of the NKF-ASN Task Force on Reassessing the Inclusion of Race in Diagnosing Kidney Disease . Blood Structure of peripheral vein / Unknown Venipuncture / Unknown 04/11/2025 8:16 AM EDT 04/11/2025 8:33 AM EDT Sravan Alegria MD LAB BLOOD ORDERABLES Final Result Performing Organization Address City/[facility]/ZIP Co de Phone Number [facility] [address] [place] [address], [place] * Troponin T, High Sensitivity (04/10/2025 8:06 PM EDT) Only the most recent of3 resultswithin the time period is included. Troponin T High Sensitivity 8 <=21 ng/L 04/10/2025 8:48 PM EDT [facility] Comment: [id number] level of 52 ng/L or higher at 0-hour at presentation is recommended by the ESC 0/1-hour algorithm for identifying patients at high risk for ruling in acute myocardial infarction (AMI) in the appropriate clinical context. Repeat troponin testing 1-3 hours after the initial sample may be helpful in assessing for ongoing myocardial injury. Troponin elevations can be seen in several other non-infarct conditions, and the change (delta) should be evaluated in line with the 4th [place] Definition of AMI. Troponin baseline and serial elevation for a significant delta should be interpreted with clinical presentation, history, signs and symptoms, ECG, and biomarker concentrations. For inpatient setting: Value <12ng/L is considered negative for all genders. 0-1hr: A delta change of <3 will be considered negative/flat if chest pain onset >3 hours 0-3hr: A delta change of <7 will be considered negative/flat Blood Structure of peripheral vein / Unknown Venipuncture / Unknown 04/10/2025 8:06 PM EDT 04/10/2025 8:13 PM EDT us Bentley Smith MD LAB BLOOD ORDERABLES Final R esult Performing Organization Address City/[facility]/ZIP Co de Phone Number [facility] [address] [place] [address], [place] * (ABNORMAL) C-reactive protein (04/10/2025 8:06 PM EDT) C Reactive Protein 21.1(H) <=9.9 mg/L 04/10/2025 9:45 PM EDT [facility] Blood Structure of peripheral vein / Unknown Venipuncture / Unknown 04/10/2025 8:06 PM EDT 04/10/2025 8:13 PM EDT us Favian Samuels MD LAB BLOOD ORDERABLES Final Resul t [facility] [address] [place] [address], [place] * CT Chest PE (04/10/2025 7:00 PM EDT) Anatomical Region Laterality Modality Body Computed Tomogra phy 04/10/2025 7:25 PM EDT Impressions 04/10/2025 7:27 PM EDT 1. No evidence of PE. 2. Small pericardial effusion. If this radiology report contains a blank impression section, it is an incomplete radiology report. Please contact the interpreting radiologist or applicable radiology division as soon as possible to obtain the completed interpretation. Workstation ID: [id number] Up-to-date CT equipment and radiation dose reduction techniques were employed. CTDIvol: 2.3 - 13.9 mGy. DLP: 423 mGy-cm. Narrative 04/10/2025 7:27 PM EDT COMPARISON: None. FINDINGS: The pulmonary artery and its major branches are normal in course and caliber without intraluminal filling defects. The lungs are clear without focal consolidation, pleural effusion or pneumothorax. The thoracic aorta and its major mediastinal branch vessels are normal throughout their entire course. There is no mediastinal lymphadenopathy. There is a small pericardial effusion. There are no focal osseous lesions. Limited evaluation of the upper abdomen demonstrates no gross abnormality. Resulting Agency Comment [id number] Procedure Note Nelson Henry MD - 04/10/2025 COMPARISON: None. FINDINGS: The pulmonary artery and its major branches are normal in course andcaliber without intraluminal filling defects. The lungs are clear without focal consolidation, pleural effusion orpneumothorax. The thoracic aorta and its major mediastinal branch vessels are normalthroughout their entire course. There is no mediastinal lymphadenopathy.There is a small pericardial effusion. There are no focal osseous lesions. Limited evaluation of the upperabdomen demonstrates no gross abnormality. IMPRESSION: 1. No evidence of PE. 2. Small pericardial effusion. If this radiology report contains a blank impression section, it is anincomplete radiology report. Please contact the interpreting radiologistor applicable radiology division as soon as possible to obtain thecompleted interpretation. Workstation ID: [id number] Up-to-date CT equipment and radiation dose reduction techniques wereemployed. CTDIvol: 2.3 - 13.9 mGy. DLP: 423 mGy-cm. us Carlos Enrique Le MD IMG CT PROCEDURES Final Result * Type and Screen (04/10/2025 3:13 PM EDT) ABO Blood Type A 04/10/2025 4:17 PM EDT [facility] RH Type Positive 04/10/2025 4:17 PM EDT [facility] Expiration Date/Time 2025-04-13 23:59 04/10/2025 4:17 PM EDT [facility] Antibody Screen Negative 04/10/2025 4:17 PM EDT [facility] Blood Structure of peripheral vein / Unknown Venipuncture / Unknown 04/10/2025 3:13 PM EDT 04/10/2025 3:24 PM EDT us Carlos Enrique Le MD LAB BLOOD BANK TEST ORDERABLES Final Result [facility] [address] [place] [address], [place] [phone] * Protime-INR (04/10/2025 3:10 PM EDT) PT 10.1 9.6 - 12.4 Seconds 04/10/2025 4:12 PM EDT [facility] [employer] LAB[facility] INR 0.9 0.9 - 1.1 04/10/2025 4:12 PM EDT [facility] Comment:The optimal therapeu tic INR range for patients treated with Vitamin K antagonists (VKAS, e.g., Warfarin) is 2.0 to 3.5. Discuss the desired range with your doctor/care team. Blood Structure of peripheral vein / Unknown Venipuncture / Unknown 04/10/2025 3:10 PM EDT 04/10/2025 3:16 PM EDT us Carlos Enrique Le MD LAB BLOOD ORDERABLES Final Res ult [facility] [address] [place] [address], * (ABNORMAL) Basic Metabolic Panel (04/10/2025 3:10 PM EDT) NA 137 135 - 145 mmol/L 04/10/2025 3:52 PM EDT [facility] K 3.5 3.5 - 5.3 mmol/L 04/10/2025 3:52 PM EDT [facility] Cl 102 98 - 107 mmol/L 04/10/2025 3:52 PM EDT [facility] CO2 24 22 - 32 mmol/L 04/10/2025 3:52 PM EDT [facility] BUN 5(L) 7 - 23 mg/dL 04/10/2025 3:52 PM EDT [facility] Creatinine 0.77 0.60 - 1.30 mg/dL 04/10/2025 3:52 PM EDT [facility] Glucose 117(H) 65 - 99 mg/dL 04/10/2025 3:52 PM EDT [facility] Calcium 9.5 8.6 - 10.5 mg/dL 04/10/2025 3:52 PM EDT [facility]OLOGY LABORATORY Anion Gap 11 5 - 15 04/10/2025 3:52 PM EDT [employer] CLINICAL PATHOLOGY LABORATORY eGFR >90 >=60 mL/min/1. 73m2 04/10/2025 3:52 PM EDT [facility] [employer] CLINICAL PATHOLOGY LABORATORY Comment:The estimated glomer ular filtration rate (eGFR) is calculated using a new formula developed by the NKF-ASN task force to eliminate race-based correction factors. The new formula uses serum/plasma creatinine, age, and gender to determine eGFR. A value below 60mls/min might indicate kidney disease and will be flagged. For additional information, see Len et al, Am J Kidney Dis. 2021;79(2):268- 288, A Unifying Approach for GFR estimation: Recommendations of the NKF-ASN Task Force on Reassessing the Inclusion of Race in Diagnosing Kidney Disease . Blood Structure of peripheral vein / Unknown Venipuncture / Unknown 04/10/2025 3:10 PM EDT 04/10/2025 3:20 PM EDT Carlos Enrique Le MD LAB BLOOD ORDERABLES Final Res ult [facility] [employer] CLINICAL PATHOLOGY LABORATORY [address] [place] [address], * HEART & VASCULAR - SCANNED (04/10/2025) Only the most recent of5 resultswithin the time period is included. Anatomical Region Laterality Modality Other us Onbase Scan Vikki SCANNED PROCEDURES Final Resu lt from Last 3 Months Insurance [facility] Advance Directives * Full Code (Latest Code Status on File) Date Activated Date Inactivated Comments 04/10/2025 9:12 PM 04/14/2025 2:45 PM Care Teams Ophthalmic Dispenser Relationship Specialty Start Date End Date Benny Lae PA [address] [place] [address] PCP - General 04/10/25
--- OUTSIDE RECORDS SUMMARY | 2025-05-05 22:41 | XMS_ITS | Encounter Summary ---
Author Organization Located Within [facility] Address [address] [place] [id number] Phone Care Team Providers Care Typewriter Tester Name Role Phone Noé Huynh CRICKET COACH Primary Care Provider + [phone] Wali Long CRICKET COACH Primary Care Provider + Reason for Referral [...] Expiration Date Visits Re quested Visits Authorized [id number] Closed 10/11/2021 10/11/2022 1 1 Encounter Details Date Type Department Care Team (Latest Contact Info) Description 10/11/2021 Transcribe Orders Virtual Department [address] [place] [address] Susana Rollins PA [address] [place] [address] Vomiting, intractability of vomiting not specified, presence [...] type documented in this encounter Care Teams Typewriter Tester Relationship Specialty Start Date End Date Noé Huynh NP PCP - General Family Medicine 09/17/19 Wali Long NP [address] [place] [address] [place] [address] PCP - General Family Medicine 11/11/21 documented as of this encounter Additional Source Comments The information contained in this document represents components of the legal health record. It is not the complete legal health record.[facility]
--- OUTSIDE RECORDS SUMMARY | 2025-05-05 22:41 | XMS_ITS | Encounter Summary ---
Author Organization [facility] Address [address] [address] Phone Care Team Providers Care Job Honer Name Role Phone Noé Huynh SUPERVISOR TOWER Primary Care Provider [phone] Wali Long SUPERVISOR TOWER Primary Care Provider + Reason for Referral * MRI/CAT Scan - Closed Specialty Diagnoses / Procedures Referred By Contac t Referred To Contact Radiology Diagnoses LLQ pain Bloating Nausea Procedures CT Abdomen/Pelvis Susana Rollins PA Phone: tel: fax: Referral ID Status Reason Start Date Expiration Date Visits Re quested Visits Authorized [id number] Closed 09/19/2019 12/18/2019 1 1 Encounter Details Date Type Department Care Team (Latest Contact Info) Description 09/19/2019 Transcribe Orders Virtual Department [address] [place] [address] Susana Rollins PA [address] [place] [phone] Bloating (Primary Dx); LLQ pain; Nausea Social [...] alone documented in this encounter Care Teams Job Honer Relationship Specialty Start Date End Date Noé Huynh NP [email or web address] PCP - General Family Medicine 09/17/[address] [facility] [place] [address] PCP - General Family Medicine 11/11/21 documented as of this encounter Additional Source Comments The information contained in this document represents components of the legal health record. It is not the complete legal health record.[facility]
--- OUTSIDE RECORDS SUMMARY | 2025-05-05 22:41 | XMS_ITS | Clinical Summary ---
Author Organization [facility] Address [address] [address] Phone Care Team Providers Care Site Damage Prevention Technician Name Role Phone Wali Long HUMAN RESOURCES COMPLIANCE MANAGER Primary Care Provider + Allergies Active Allergy [...] HIV ONE-TIME SCREENING (18-6 5 YEARS) 12/19/2009 INFLUENZA VACCINE (#1) 2025 9, 08/20/2018 COVID-19 VACCINE (2023-2 5 season) 2025 SMOKING STATUS SCREENING (On ce After 26 [...] (0-49 years) Aged Out No longer eligible b ased on patient's age to complete this topic [employer] Not on file Insurance [facility] [employer] [facility] DIRECT HEALTH SAFETY NET PARTIAL Member Subscriber Plan / Payer (Ef fective 2021-Present) Name:Jack Burns Relation to Subscriber:Self Name:AcequiaJack amin Payer ID:Not on file Group ID:Not on file Type:Medicaid Address: [place] [id number] [employer] [facility] [employer] NET PARTIAL [employer] NET PARTIAL [employer] [facility] NET PARTIAL [place] [employer] [place] [address] [facility] [employer] [facility] [place] [address] [facility] [employer] DIRECT [employer] SAF[employer] NET PARTIAL [facility] [employer] DIRECT HEALTH SAFETY NET PARTIAL [facility] DIRECT [facility] NET PARTIAL Care Teams Site Damage Prevention Technician Relationship Specialty Start Date End Date Wali Long NP [address] [facility] [address] [place] [address] PCP - General Family Medicine 11/11/21 Additional Source Comments The information contained in this document represents components of the legal health record. It is not the complete legal health record.[facility]
[2025-05-05 22:42] VITALS: BP 162/104; PULSE 102; TEMP 36.8; O2SAT 98
[2025-05-05] MEDS: Lactated Ringers 1,000 ML 999 ML IV (22:49)
[2025-05-05] MEDS: Magnesium Hydrox/Alum Hydrox 30 ML ORAL.SUSP PO (22:59)
[2025-05-05] MEDS: Lidocaine HCl Viscous 2 % 15 ML SOLUTION MUCOUS MEM (22:59)
[2025-05-05 23:27] LABS: Anion Gap 19 (12-20); Blood Urea Nitrogen 5 mg/dL (9-16); Calcium 8.4 mg/dL (8.4-10.2); Carbon Dioxide 24 mmol/L (22-29); Chloride 105 mmol/L (96-108); Creatinine Clr Calc Pharmacy 168.3; Estimated Glomerular Filt Rate > 60; Magnesium 2.1 mg/dL (1.6-2.6); Potassium 3.4 mmol/L (3.3-5.1); Sodium 145 mmol/L (135-145)
[2025-05-05 23:34] LABS: Troponin-I High Sensitivity < 2.7 ng/L (<3.5-35.0)
[2025-05-06 03:00] VITALS: BP 115/75; PULSE 130
[2025-05-06] MEDS: Lactated Ringers 1,000 ML 999 ML IV (03:14)
[2025-05-06] MEDS: diazePAM 10 MG/2 ML CARTRIDGE 5 MG IVPUSH (03:24)
[2025-05-06 06:00] VITALS: BP 127/83; PULSE 114; RESP 20; O2SAT 96
[2025-05-06] MEDS: diazePAM 10 MG/2 ML CARTRIDGE IVPUSH (06:13)
[2025-05-06 08:00] VITALS: BP 142/95; PULSE 108; RESP 16; TEMP 36.6; O2SAT 99
[2025-05-06 09:35] LABS: Troponin-I High Sensitivity < 2.7 ng/L (<3.5-35.0)
[2025-05-06] MEDS: Magnesium Hydrox/Alum Hydrox 30 ML ORAL.SUSP PO (10:28)
[2025-05-06 11:08] VITALS: BP 142/95; PULSE 108; RESP 16; TEMP 36.6; O2SAT 99
== END 2025-05-06 11:10 | disposition left against medical advice (07) ==
PROVIDERS: Student in an Organized Health Care Education/Training Program; Emergency Provider Emergency Medicine
DX: K29.20 Alcoholic gastritis without bleeding (principal); F10.239 Alcohol dependence with withdrawal, unspecified; R07.89 Other chest pain; R10.13 Epigastric pain; Y90.8 Blood alcohol level of 240 mg/100 ml or more; R11.2 Nausea with vomiting, unspecified; Z79.899 Other long term (current) drug therapy; Z87.891 Personal history of nicotine dependence; Z51.81 Encounter for therapeutic drug level monitoring
CPT/HCPCS: 36415; 71045; 80048; 80307; 83735; 84484; 85025; 93005; 96361; 96374; 96375; 96376; 99285; J0131; J1171; J1200; J1308; J1885; J2250; J2270; J2405; J2470; J2765; J3360; J7120; S9485

== ENCOUNTER → 2025-05-05 22:15 | Outpatient (BNV) | payer OTHER, SELFPAY | PROVIDERS: Emergency Provider Emergency Medicine; Visit Provider Internal Medicine | DX: R00.0 Tachycardia, unspecified (principal) | CPT/HCPCS: 93010 ==

== ENCOUNTER → 2025-05-05 22:49 | Outpatient (BNV) | payer OTHER, SELFPAY | PROVIDERS: Emergency Provider Student in an Organized Health Care Education/Training Program; Visit Provider Radiology Diagnostic Radiology | DX: J98.4 Other disorders of lung (principal); I51.7 Cardiomegaly | CPT/HCPCS: 71045 ==

== ENCOUNTER 2025-05-07 16:03 | Inpatient (IN) | payer OTHER, SELFPAY ==
[2025-05-07] VITALS (8 sets, daily range): BP systolic 121–163; BP diastolic 73–102; PULSE 74–125; RESP 15–23; TEMP 36.7–37.3; O2SAT 96–100; BMI 29.0
--- NOTE | 2025-05-07 | ECG_ITS ---
Test Reason : CP Blood Pressure : */* mmHG Vent. Rate : 114 BPM Atrial Rate : 114 BPM P-R Int : 140 ms QRS Dur : 80 ms QT Int : 336 ms P-R-T Axes : 40 52 40 degrees QTcB Int : 463 ms Sinus tachycardia Nonspecific ST and T wave abnormality Abnormal ECG When compared with ECG of 07-May-2025 16:20, No significant change was found Referred By: José Miguel Chowdhury Electronically Signed By: DANIELLE MARION
--- NOTE | ~2025-05-07 | CT_ITS ---
CLINICAL HISTORY: chest pain, elevated D-dimer, also hx of pericardi CT angiogram chest/pulmonary arteries with contrast Multiplanar reconstructions and MIPS Comparison: 04/02/2025 Findings: Small peripheral bilateral lower lobe emboli. No other pulmonary emboli are identified. Borderline right heart strain, RV/LV 1.0. Thoracic aorta normal caliber without dissection. Heart size enlarged. Great vessel origins patent. No coronary calcifications. No significant focal parenchymal abnormalities. No significant mediastinal or hilar adenopathy. No free pleural fluid. No acute bony abnormality noted. Incidental fatty infiltration of the liver. Impression: Small bilateral posterior lower lobe emboli Borderline right heart enlargement, question right heart strain This document has been electronically signed by: Kennedy Alford MD on 05/07/2025 22:07:17
--- NOTE | 2025-05-07 16:20 | ECG_ITS ---
Test Reason : CP Blood Pressure : */* mmHG Vent. Rate : 110 BPM Atrial Rate : 110 BPM P-R Int : 148 ms QRS Dur : 92 ms QT Int : 330 ms P-R-T Axes : 24 31 -2 degrees QTcB Int : 446 ms Sinus tachycardia Cannot rule out Anterior infarct , age undetermined Abnormal ECG When compared with ECG of 05-May-2025 22:15, No significant change was found Referred By: Generic ED Physician Electronically Signed By: DANIELLE MARION
[2025-05-07 17:32] LABS: MANUAL DIFF FLAG NO
[2025-05-07 17:33] LABS: Hematocrit 38.2 % (42.0-52.0); Hemoglobin 12.6 g/dl (14.0-18.0); Imm Gran Abs Auto 0.03 X10*3/uL (0.00-0.03); Imm Gran Pct Auto 0.5 % (0.0-0.4); Lymphocytes Absolute Auto 0.5 X10*3/uL (1.2-4.9); Mean Corpuscular HGB Conc 33.0 g/dl (31.0-36.0); Mean Corpuscular Hemoglobin 28.4 pg (27.0-33.0); Mean Corpuscular Volume 86.0 fL (80.0-98.0); NRBC Abs Auto 0.000 X10*3/uL (0.0-0.012); NRBC Pct Auto 0.0 /100WBC (0.0-0.2); Platelet Count 324 X10*3/uL (160-400); Red Blood Count 4.44 X10*6/uL (4.60-5.80); White Blood Count 5.8 X10*3/uL (4.8-10.8)
[2025-05-07 17:43] LABS: INTERNATIONAL NORM RATIO 1.0 (0.9-1.1); Prothrombin Time 11.7 SEC (10.9-12.4)
[2025-05-07 17:47] LABS: Alanine Aminotransferase 168 U/L (0-40); Albumin Level 4.3 g/dL (3.5-5.0); Alkaline Phosphatase 90 U/L (39-117); Anion Gap 16 (12-20); Aspartate Amino Transferase 92 U/L (5-37); Blood Urea Nitrogen 4 mg/dL (9-16); Calcium 8.2 mg/dL (8.4-10.2); Carbon Dioxide 27 mmol/L (22-29); Chloride 107 mmol/L (96-108); Creatinine Clr Calc Pharmacy 189.9; Estimated Glomerular Filt Rate > 60; Magnesium 2.4 mg/dL (1.6-2.6); Potassium 3.3 mmol/L (3.3-5.1); Sodium 147 mmol/L (135-145); Total Protein 6.6 g/dL (6.5-8.0)
[2025-05-07 17:54] LABS: Troponin-I High Sensitivity < 2.7 ng/L (<3.5-35.0)
--- OUTSIDE RECORDS SUMMARY | 2025-05-07 18:39 | XMS_ITS | Clinical Summary ---
Author Organization [facility] Address [address] [place] [address] Care Team Providers Care Butting Saw Operator Name Role Phone Benny Lea Primary Care Provider [phone] Allergies No known active allergies Medications apixaban [...] had just gone through alcohol withdrawal at [facility] and was referred to a detox facility [...] had just gone through alcohol withdrawal at [facility] and was referred to a detox facility [...] had just gone through alcohol withdrawal at [facility] and was referred to a detox facility [...] voices. [place] from [facility] where he states that he [...] had just gone through alcohol withdrawal at [facility] and was referred to a detox facility [...] had just gone through alcohol withdrawal at [facility] and was referred to a detox facility [...] had just gone through alcohol withdrawal at [facility] and was referred to a detox facility [...] voices. [place] is presenting [place] from [facility] where he states that he was recently [...] it was provoked or unprovoked. CT scan [facility] showing no evidence of pulmonary emboli. - Resumed Eliquis 5 mg BID 04/11 - Outpatient hematology follow up at [facility] Assessment & Plan (04/12/2025 8:28 AM EDT): Home meds: Eliquis 5 mg twice daily Patient was diagnosed with PE 04/03 and he was placed on Eliquis for this which he has been taking regularly. Unknown if it was provoked or unprovoked. CT scan [facility] showing no evidence of pulmonary emboli. - Resumed Eliquis 5 mg BID 04/11 - Outpatient hematology follow up at [facility] Assessment & Plan (04/11/2025 4:30 PM [...] 04/11 - Outpatient hematology follow up at [facility] Assessment & Plan (04/11/2025 1:32 AM [...] there were discussions for surgical intervention at [facility], but he was not able to [...] K>4, Mg>2 - Follow up with outpatient parts picker at [facility] & Plan (04/12/2025 1:49 PM EDT): Home: [...] there were discussions for surgical intervention at [facility], but he was not able to [...] K>4, Mg>2 - Follow up with outpatient parts picker at [facility] & [facility] (04/11/2025 4:30 PM EDT): Home: [place] 0.6 [...] there were discussions for surgical intervention at [facility], but he was not able to [...] K>4, Mg>2 - Follow up with outpatient parts picker at [facility] Assessment & Plan (04/11/2025 1:32 AM [...] there were discussions for surgical intervention at [facility], but he was not able to [...] - 04/14/2025 12:39 [place] [address] Carlos Enrique Le MD Conicella, Albert, MD [...] complete this topic Procedures * Due to [place] state law, this organization might not be [...] Last 3 Months Results * Due to [place] state law, this organization might not be sharing negative HIV tests. * (ABNORMAL) CBC Auto Differential (04/14/2025 7:27 AM EDT) Only the most recent of4 resultswithin the time period is included. WBC 15.8(H) 3.8 - 10.8 10*3/uL 04/14/2025 9:02 AM EDT [facility] CLINICAL PATHOLOGY LABORATORY RBC 4.05(L) 4.20 - 5.80 10*6/uL 04/14/2025 9:02 AM EDT [facility] Hemoglobin 11.7(L) 13.2 - 17.1 g/dL 04/14/2025 9:02 AM EDT [facility] Hematocrit 35.6(L) 38.5 - 50.0 % 04/14/2025 9:02 AM EDT [facility] MCV 87.9 80.0 - 100.0 fL 04/14/2025 9:02 AM EDT [facility] MCH 28.9 27.0 - 33.0 pg 04/14/2025 9:02 AM EDT [facility] MCHC 32.9 32.0 - 36.0 g/dL 04/14/2025 9:02 AM EDT [facility] RDW 14.2 11.0 - 15.0 % 04/14/2025 9:02 AM EDT [facility] Platelets 537(H) 140 - 400 10*3/uL 04/14/2025 9:02 AM EDT [facility] MPV 8.9 7.5 - 12.5 fL 04/14/2025 9:02 AM EDT [facility] Neutrophil % 70.5 % 04/14/2025 9:02 AM EDT [facility] Immature Grans % 0.5 0.0 - 0.9 % 04/14/2025 9:02 AM EDT [facility] Lymphocyte % 16.3 % 04/14/2025 9:02 AM EDT [facility] Monocyte % 11.9 % 04/14/2025 9:02 AM EDT [facility] Eosinophil % 0.5 % 04/14/2025 9:02 AM EDT [facility] Basophil % 0.3 % 04/14/2025 9:02 AM EDT [facility] Neutrophil # 11.16(H) 1.50 - 7.80 10*3/uL 04/14/2025 9:02 AM EDT [facility] CL[facility] PATHOLOG[facility] LABORATORY Immature Grans # 0.08(H) <=0.03 10*3/uL 04/14/2025 9:02 AM EDT [facility] Lymphocyte # 2.60 0.85 - 3.90 10*3/uL 04/14/2025 9:02 AM EDT [facility] Monocyte # 1.90(H) 0.20 - 0.95 10*3/uL 04/14/2025 9:02 AM EDT [facility]OLOG[facility] LABOR[facility] Eosinophil # 0.10 0.02 - 0.50 10*3/uL 04/14/2025 9:02 AM EDT [facility] LAB[facility] Basophil # 0.10 0.00 - 0.20 10*3/uL 04/14/2025 9:02 AM EDT [facility] nRBC % 0.0 /100 WBCs 04/14/2025 9:02 AM EDT [facility] nRBC # <0.01 <0.01 10*3/uL 04/14/2025 9:02 AM EDT [facility] LAB[facility] Blood Structure of peripheral vein / Unknown Venipuncture / Unknown 04/14/2025 7:27 AM EDT 04/14/2025 8:50 AM EDT us Elio Mijares DO LAB BLOOD ORDERABLES Final Re sult [facility] CLINICAL PATHOLOG[facility] LABORATORY [address] [place] [address], * Phosphorus (04/14/2025 7:27 AM EDT) Only the most recent of3 resultswithin the time period is included. Phosphorus 3.1 2.5 - 4.5 mg/dL 04/14/2025 9:37 AM EDT [facility] CLINICAL PATHOLOGY LABORATORY Blood Structure of peripheral vein / Unknown Venipuncture / Unknown 04/14/2025 7:27 AM EDT 04/14/2025 8:41 AM EDT Elio Mijares DO LAB BLOOD ORDERABLES Final Re sult Performing Organization Address City/[facility]/ZIP Co de Phone Number [facility] [address] [place] [address], * Magnesium (04/14/2025 7:27 AM EDT) Only the most recent of5 resultswithin the time period is included. MG 2.0 1.6 - 2.4 mg/dL 04/14/2025 9:37 AM EDT [facility] CLINICAL PATHOLOGY LABORATORY Blood Structure of peripheral vein / Unknown Venipuncture / Unknown 04/14/2025 7:27 AM EDT 04/14/2025 8:41 AM EDT Elio AlexanderJulienne Wilsonel DO LAB BLOOD ORDERABLES Final Re sult Performing Organization Address [facility] de Phone Number [facility] CLINICAL PATHOLOGY LABORATORY [address] [place] [address] * (ABNORMAL) Comprehensive Metabolic Panel (04/14/2025 7:27 AM EDT) Only the most recent of3 resultswithin the time period is included. NA 141 135 - 145 mmol/L 04/14/2025 9:38 AM EDT [facility] CL[facility] PATHOLOGY LABORATORY K 3.8 3.5 - 5.3 mmol/L 04/14/2025 9:38 AM EDT [facility] PATHOLOG[facility] LABORATORY Cl 105 98 - 107 mmol/L 04/14/2025 9:38 AM EDT [facility]OLOG[facility] LAB[facility]ORY CO2 22 22 - 32 mmol/L 04/14/2025 9:38 AM EDT [facility] CL[facility] PATHOLOG[facility] LABORATORY Anion Gap 14 5 - 15 04/14/2025 9:38 AM EDT [facility] PATHOLOG[facility] LABORATORY Glucose 79 65 - 99 mg/dL 04/14/2025 9:38 AM EDT [facility] PATHOLOG[facility] LAB[facility]ATORY Creatinine 0.59(L) 0.60 - 1.30 mg/dL 04/14/2025 9:38 AM EDT [facility] PATHOLOG[facility] LABORATORY Calcium 9.0 8.6 - 10.5 mg/dL 04/14/2025 9:38 AM EDT [facility]OLOG[facility] LAB[facility] Total Protein 6.4 6.0 - 8.0 g/dL 04/14/2025 9:38 AM EDT [facility] PATHOLOG[facility] LAB[facility]ATORY Albumin 3.4(L) 3.5 - 5.2 g/dL 04/14/2025 9:38 AM EDT [facility] CL[facility] PATHOLOG[facility] LAB[facility]ATORY Bilirubin, Total <0.2(L) 0.2 - 1.2 mg/dL 04/14/2025 9:38 AM EDT [facility] CL[facility] PATHOLOG[facility] LABORATORY Alkaline Phosphatase 64 35 - 129 U/L 04/14/2025 9:38 AM EDT [facility] LAB[facility] AST 20 10 - 40 U/L 04/14/2025 9:38 AM EDT [facility] PATHOLOG[facility] LAB[facility]ATORY ALT 15 10 - 40 U/L 04/14/2025 9:38 AM ED [facility] PATHOLOG[facility] LAB[facility]ATORY BUN 5(L) 7 - 23 mg/dL 04/14/2025 9:38 AM EDT [facility]OLOG[facility] LAB[facility]ORY eGFR >90 >=60 mL/min/1 .73m2 04/14/2025 9:38 AM EDT [facility] CL[facility] PATHOLOG[facility] LABORATORY Comment:The estimated glomer ular [...] - 4.2 g/dL 04/14/2025 9:38 AM EDT [facility] CL[facility] PATHOLOGY LABORATORY A/G Ratio 1.1(L) 1.5 - 3.0 04/14/2025 9:38 AM EDT [facility] CL[facility] PATHOLOGY LABORATORY Blood Structure of peripheral vein / Unknown Venipuncture / Unknown 04/14/2025 7:27 AM EDT 04/14/2025 8:41 AM EDT us Elio Mijares DO LAB BLOOD ORDERABLES Final Re sult [facility] LAB[facility] [address] [place] [address], * ECG 12 lead (04/14/2025 4:23 AM EDT) Only the most recent of4 resultswithin the time period is included. Ventricular Rate EKG 83 BPM MUSE EKG Atrial Rate 83 BPM MUSE EKG NM Interval 168 ms MUSE EKG QRS Interval 78 ms MUSE EKG QT Interval 368 ms MUSE EKG QTC Interval 432 ms MUSE EKG P [place] 34 degrees MUSE EKG R [place] 20 degrees MUSE EKG T Wave [place] 4 degrees MUSE EKG 04/14/2025 4:23 AM [...] Calderon (297) on 04/17/2025 9:02:57 AM us [employer] Erlinda RODRÍGUEZ ECG ORDERABLES Final Resu lt [...] - 10.8 10*3/uL 04/11/2025 8:50 AM EDT [facility] CLINICAL PATHOLOGY LABORATORY RBC 4.20 4.20 - 5.80 10*6/uL 04/11/2025 8:50 AM EDT [facility] CL[facility] PATHOLOG[facility] LABORATORY Hemoglobin 12.4(L) 13.2 - 17.1 g/dL 04/11/2025 8:50 AM EDT [facility] CL[facility] PATHOLOGY LABORATORY Hematocrit 38.9 38.5 - 50.0 % 04/11/2025 8:50 AM EDT [employer] [facility] [employer] CLINICAL PATHOLOGY LABORATORY MCV 92.6 80.0 - 100.0 fL 04/11/2025 8:50 AM EDT [facility]OLOG[facility] LAB[facility] MCH 29.5 27.0 - 33.0 pg 04/11/2025 8:50 AM EDT [facility] LAB[facility] MCHC 31.9(L) 32.0 - 36.0 g/dL 04/11/2025 8:50 AM EDT [facility] PATHOLOG[facility] LAB[facility] RDW 14.7 11.0 - 15.0 % 04/11/2025 8:50 AM EDT [facility] CLINICAL PATHOLOGY LABORATORY Platelets 380 140 - 400 10*3/uL 04/11/2025 8:50 AM EDT [facility] CL[facility]ICAL PATHOLOGY LABORATORY MPV 8.7 7.5 - 12.5 fL 04/11/2025 8:50 AM EDT [facility] PATHOLOG[facility] LAB[facility] Blood Structure of peripheral vein / Unknown Venipuncture / Unknown 04/11/2025 8:16 AM EDT 04/11/2025 8:32 AM EDT Sravan Alegria MD LAB BLOOD ORDERABLES Final Result [facility] CommunicationsLA [facility] CL[facility] PATHOLOG[facility] LABORATORY [address] [place] [address], * (ABNORMAL) Hepatic function panel (04/11/2025 8:16 AM EDT) Only the most recent of2 resultswithin the time period is included. Total Protein 6.4 6.0 - 8.0 g/dL 04/11/2025 10:58 AM EDT [facility] CL[facility] PATHOLOGY LABORATORY Albumin 3.5 3.5 - 5.2 g/dL 04/11/2025 10:58 AM EDT [facility] CL[facility] PATHOLOG[facility] LABORATORY Globulin, Total 2.9 2.1 - 4.2 g/dL 04/11/2025 10:58 AM EDT [facility]OLOG[facility] LAB[facility] Bilirubin, Total 0.2 0.2 - 1.2 mg/dL 04/11/2025 10:58 AM EDT [facility] Bilirubin, Direct <0.1 <=0.4 mg/dL 04/11/2025 10:58 AM EDT [employer] LAB[facility] Alkaline Phosphatase 72 35 - 129 U/L 04/11/2025 10:58 AM EDT [facility] AST 24 10 - 40 U/L 04/11/2025 10:58 AM EDT [facility]ITALEdfa3lyC[facility] ALT 17 10 - 40 U/L 04/11/2025 10:58 AM EDT [employer] LAB[facility] Bilirubin, Indirect 04/11/2025 10:58 AM EDT [facility] LAB[facility] Comment:Unable to calculate A/G Ratio 1.2(L) 1.5 - 3.0 04/11/2025 10:58 AM EDT [employer]OLOG[facility] LAB[facility] Blood Structure of peripheral vein / Unknown Venipuncture / Unknown 04/11/2025 8:16 AM EDT 04/11/2025 8:33 AM EDT us Elio Mijares DO LAB BLOOD ORDERABLES Final Re sult [facility] CL[facility] PATH[facility] LABORATORY [address] [place] [address], * (ABNORMAL) Renal Function Panel (04/11/2025 8:16 AM EDT) NA 140 135 - 145 mmol/L 04/11/2025 9:05 AM EDT [employer] CL[facility] PATHOLOG[facility] LAB[facility]AT[facility] K 3.7 3.5 - 5.3 mmol/L 04/11/2025 9:05 AM EDT [facility] Cl 105 98 - 107 mmol/L 04/11/2025 9:05 AM [facility] CLIN[facility] PATHOLOG[facility] LABORATORY CO2 21(L) 22 - 32 mmol/L 04/11/2025 9:05 AM [facility] CL[facility] PATHOLOG[facility] LAB[facility]AT[facility] Anion Gap 14 5 - 15 04/11/2025 9:05 AM [facility] LAB[facility] Glucose 84 65 - 99 mg/dL 04/11/2025 9:05 AM [facility] CL[facility] PATHOLOG[facility] LAB[facility]ATORY BUN 6(L) 7 - 23 mg/dL 04/11/2025 9:05 AM [facility] CL[facility] PATHOLOG[facility] LAB[facility]ATORY Creatinine 0.69 0.60 - 1.30 mg/dL 04/11/2025 9:05 AM [facility] CLINICAL PATHOLOGY LABORATORY Calcium 9.2 8.6 - 10.5 mg/dL 04/11/2025 9:05 AM [facility] CLINICAL PATHOLOGY LABORATORY Phosphorus 4.1 2.5 - 4.5 mg/dL 04/11/2025 9:05 AM [facility] CLINICAL PATHOLOGY LABORATORY Albumin 3.5 3.5 - 5.2 g/dL 04/11/2025 9:05 AM [facility] CL[facility]ICAL PATHOLOGY LABORATORY eGFR >90 >=60 mL/min/1. 73m2 04/11/2025 9:05 AM [facility] CLINICAL PATHOLOGY LABORATORY Comment:The estimated glomer ular [...] BLOOD ORDERABLES Final Result Performing Organization Address City/[facility]/ZIP Co de Phone Number [facility] CLINICAL PATHOLOGY LABORATORY [address] [place] [address], [place] * Troponin T, High Sensitivity (04/10/2025 8:06 PM EDT) Only the most recent of3 resultswithin the time period is included. Troponin T High Sensitivity 8 <=21 ng/L 04/10/2025 8:48 PM EDT [facility] Comment: Ew-Ajtocrqy-H level of 52 ng/L or higher at [...] be evaluated in line with the 4th [place] Definition of AMI. Troponin baseline and serial [...] ORDERABLES Final R esult Performing Organization Address City/[facility]/ZIP Co de Phone Number [facility] CLINICAL PATHOLOGY LABORATORY [address] [place] [address], [place] * (ABNORMAL) C-reactive protein (04/10/2025 8:06 PM EDT) C Reactive Protein 21.1(H) <=9.9 mg/L 04/10/2025 9:45 PM EDT [facility] CLINICAL PATHOLOGY LABORAT[facility] Blood Structure of peripheral vein / Unknown Venipuncture / Unknown 04/10/2025 8:06 PM EDT 04/10/2025 8:13 PM EDT us Favian Samuels MD LAB BLOOD ORDERABLES Final Resul t [facility] LAB[facility] [address] [place] [address], [place] * CT Chest PE (04/10/2025 7:00 [...] to obtain the completed interpretation. Workstation ID: [id number] Up-to-date CT equipment and radiation dose reduction [...] demonstrates no gross abnormality. Resulting Agency Comment [id number] Procedure Note Nelson Henry MD - 04/10/2025 [...] possible to obtain thecompleted interpretation. Workstation ID: [id number] Up-to-date CT equipment and radiation dose reduction [...] Final Result [facility] [address] [place] [address], [place] [phone] * Protime-INR (04/10/2025 3:10 PM EDT) PT 10.1 9.6 - 12.4 Seconds 04/10/2025 4:12 PM EDT [facility] CL[facility]ICAL PATHOLOGY LABORATORY INR 0.9 0.9 - 1.1 04/10/2025 4:12 PM EDT [facility] CLINICAL PATHOLOGY LABORATORY Comment:The optimal therapeu tic INR range for patients treated with Vitamin K antagonists (VKAS, e.g., Warfarin) is 2.0 to 3.5. Discuss the desired range with your doctor/care team. Blood Structure of peripheral vein / Unknown Venipuncture / Unknown 04/10/2025 3:10 PM EDT 04/10/2025 3:16 PM EDT us Carlos Enrique Le MD LAB BLOOD ORDERABLES Final Res ult [facility] LABOR[facility]ORY [address] [place] [address], * (ABNORMAL) Basic Metabolic Panel (04/10/2025 3:10 PM EDT) NA 137 135 - 145 mmol/L 04/10/2025 3:52 PM EDT [facility] CLINICAL PATHOLOGY LABORATORY K 3.5 3.5 - 5.3 mmol/L 04/10/2025 3:52 PM EDT [facility] CL[facility] PATHOLOGY LABORATORY Cl 102 98 - 107 mmol/L 04/10/2025 3:52 PM EDT [facility] CL[facility] PATHOLOG[facility] LAB[facility]ATORY CO2 24 22 - 32 mmol/L 04/10/2025 3:52 PM EDT [facility] CL[facility]ICAL PATHOLOGY LABORATORY BUN 5(L) 7 - 23 mg/dL 04/10/2025 3:52 PM EDT [facility] CL[facility] PATHOLOG[facility] LAB[facility]ATORY Creatinine 0.77 0.60 - 1.30 mg/dL 04/10/2025 3:52 PM EDT [facility] CL[facility] PATHOLOGY LAB[facility]ATORY Glucose 117(H) 65 - 99 mg/dL 04/10/2025 3:52 PM EDT [facility] CL[facility] PATHOLOG[facility] LAB[facility]ATORY Calcium 9.5 8.6 - 10.5 mg/dL 04/10/2025 3:52 PM EDT [facility] CLINICAL PATHOLOGY LABORATORY Anion Gap 11 5 - 15 04/10/2025 3:52 PM EDT [facility] CLINICAL PATHOLOGY LABORATORY eGFR >90 >=60 mL/min/1. 73m2 04/10/2025 3:52 PM EDT [facility] CLINICAL PATHOLOGY LABORATORY Comment:The estimated glomer ular [...] MD LAB BLOOD ORDERABLES Final Res ult [facility] CLINICAL PATHOLOG[facility] LABORATORY [address] [place] [address], * HEART & VASCULAR - SCANNED (04/10/2025) Only the most recent of5 resultswithin the time period is included. Anatomical Region Laterality Modality Other us Onbase Scan Vikki SCANNED PROCEDURES Final Resu lt from Last 3 Months Insurance [facility] Advance Directives * Full Code (Latest Code Status on File) Date Activated Date Inactivated Comments 04/10/2025 9:12 PM 04/14/2025 2:45 PM Care Teams Butting Saw Operator Relationship Specialty Start Date End Date Benny Lea PA [address] [place] [address] PCP - General 04/10/25
--- OUTSIDE RECORDS SUMMARY | 2025-05-07 18:39 | XMS_ITS | Encounter Summary ---
Author Organization [facility] Address [address] [place] [phone] Phone Care Team Providers Care Tiler Name Role Phone Noé Huynh INCUBATOR TENDER Primary Care Provider [phone] Wali Long INCUBATOR TENDER Primary Care Provider + Encounter Details Date Type Department Care Team (Late st Contact Info) Description 09/09/2021 Procedure Pass [facility] Endoscopy Admitting Dept Virtual Department [address] [place] [address] Social History Tobacco Use Types Packs/Day Years [...] on filedocumented in this encounter Care Teams Tiler Relationship Specialty Start Date End Date Noé Huynh INCUBATOR TENDER [email or web address] PCP - General Family Medicine 09/17/19 Wali Long NP [address] [facility] [place] [address] PCP - General Family Medicine 11/11/21 documented as of this encounter Additional Source Comments The information contained in this document represents components of the legal health record. It is not the complete legal health record.[facility]
--- OUTSIDE RECORDS SUMMARY | 2025-05-07 18:39 | XMS_ITS | Encounter Summary ---
Author Organization [facility] Address [address] [place] [phone] Phone Care Team Providers Care Microscopist Name Role Phone Noé Huynh OVER THE [employer]ORIZ[employer] TARGETING SUPERVISOR Primary Care Provider [phone] Wali Long OVER THE [employer] TARGETING SUPERVISOR Primary Care Provider + Encounter Details Date Type Department Care Team (Late st Contact Info) Description 09/30/2019 Procedure Pass [facility] Endoscopy Admitting Dept Virtual Department [address] [place] [address] Social History Tobacco Use Types Packs/Day Years [...] on filedocumented in this encounter Care Teams Microscopist Relationship Specialty Start Date End Date Noé Huynh OVER THE [employer]ORIZ[employer] TARGETING SUPERVISOR [email or web address] PCP - General Family Medicine 09/17/19 Wali Long NP [address] [facility] [place] [address] PCP - General Family Medicine 11/11/21 documented as of this encounter Additional Source Comments The information contained in this document represents components of the legal health record. It is not the complete legal health record.[facility]
--- OUTSIDE RECORDS SUMMARY | 2025-05-07 18:39 | XMS_ITS | Encounter Summary ---
Author Organization [facility] Address [address] [place] [phone] Phone Care Team Providers Care Paste Plant Supervisor Name Role Phone Noé Huynh MALL MANAGER Primary Care Provider + [phone] Wali Long MALL MANAGER Primary Care Provider + Reason for Referral [...] Expiration Date Visits Re quested Visits Authorized [id number] Closed 10/11/2021 10/11/2022 1 1 Encounter Details Date Type Department Care Team (Latest Contact Info) Description 10/11/2021 Transcribe Orders Virtual Department [address] [place] [address] Susana Rollins PA [address] [place] [address] Vomiting, intractability of vomiting not specified, presence [...] type documented in this encounter Care Teams Paste Plant Supervisor Relationship Specialty Start Date End Date Noé Huynh NP PCP - General Family Medicine 09/17/19 Wali Long NP [address] [place] [address] [place] [address] PCP - General Family Medicine 11/11/21 documented as of this encounter Additional Source Comments The information contained in this document represents components of the legal health record. It is not the complete legal health record.[facility]
--- OUTSIDE RECORDS SUMMARY | 2025-05-07 18:39 | XMS_ITS | Encounter Summary ---
Author Organization [facility] Address [address] [place] [phone] Phone Care Team Providers Care Filter Helper Name Role Phone Noé Huynh MANAGER WOUND CARE Primary Care Provider [phone] Wali Long MANAGER WOUND CARE Primary Care Provider + Encounter Details Date Type Department Care Team (Late st Contact Info) Description 05/15/2021 Procedure Pass [facility], Ct Scan - [address] [address] Social History Tobacco Use Types Packs/Day Years [...] on filedocumented in this encounter Care Teams Filter Helper Relationship Specialty Start Date End Date Noé Huynh MANAGER WOUND CARE [email or web address] PCP - General Family Medicine 09/17/19 Wali Long, JUAN [address] [facility] [place] [address] PCP - General Family Medicine 11/11/21 documented as of this encounter Additional Source Comments The information contained in this document represents components of the legal health record. It is not the complete legal health record.[facility]
--- OUTSIDE RECORDS SUMMARY | 2025-05-07 18:39 | XMS_ITS | Encounter Summary ---
Author Organization [facility] Address [address] [address] Phone Care Team Providers Care Inside Wirer Name Role Phone Noé Huynh [employer] PLANT ENGINEER Primary Care Provider [phone] Wali Long [employer] ENGINEER Primary Care Provider + Reason for Referral * MRI/CAT Scan - Closed Specialty Diagnoses / Procedures Referred By Contac t Referred To Contact Radiology Diagnoses LLQ pain Bloating Nausea Procedures CT Abdomen/Pelvis Susana Rollins PA Phone: tel: fax: Referral ID Status Reason Start Date Expiration Date Visits Re quested Visits Authorized [id number] Closed 09/19/2019 12/18/2019 1 1 Encounter Details Date Type Department Care Team (Latest Contact Info) Description 09/19/2019 Transcribe Orders Virtual Department [address] [place] [address] Susana Rollins PA [address] [place] [id number] Bloating (Primary Dx); LLQ pain; Nausea Social [...] alone documented in this encounter Care Teams Inside Wirer Relationship Specialty Start Date End Date Noé Huynh NP [email or web address] PCP - General Family Medicine 09/17/19 Wali Long NP [facility] [place] [address] PCP - General Family Medicine 11/11/21 documented as of this encounter Additional Source Comments The information contained in this document represents components of the legal health record. It is not the complete legal health record.[facility]
--- OUTSIDE RECORDS SUMMARY | 2025-05-07 18:39 | XMS_ITS | Clinical Summary ---
Author Organization [facility] Address [address] [address] Phone Care Team Providers Care Textile Worker Name Role Phone Wali Long DEPARTMENT STORE SALESPERSON Primary Care Provider + Allergies Active Allergy [...] topic Medical Devices Not on file Insurance [employer] [facility] DIRECT HEALTH SAFETY NET PARTIAL Member Subscriber Plan / Payer (Ef fective 2021-Present) Name:Jack Burns Relation to Subscriber:Self Name:[place] Payer ID:Not on file Group ID:Not on file Type:Medicaid Address: [place] [id number] [employer] DIRECT [facility] SAFETY NET PARTIAL [employer] DIRECT HEALTH SAFETY NET PARTIAL [employer] [facility] NET PARTIAL [place] [employer] [facility] [place] [address] [facility] [place] [address] [facility] [employer] DIRECT HEALTH SAFETY NET PARTIAL [facility] [employer] DIRECT HEALTH SAFETY NET PARTIAL [facility] NET PARTIAL Care Teams Textile Worker Relationship Specialty Start Date End Date Wali Long NP [address] [facility] [address] [place] [address] PCP - General Family Medicine 11/11/21 Additional Source Comments The information contained in this document represents components of the legal health record. It is not the complete legal health record.[facility]
--- OUTSIDE RECORDS SUMMARY | 2025-05-07 18:39 | XMS_ITS | Encounter Summary ---
Author Organization [facility] Address [address] [place] [phone] Phone Care Team Providers Care Fingernail Technician Name Role Phone Noé Huynh GROCERY WORKER Primary Care Provider [phone] Wali Long GROCERY WORKER Primary Care Provider + Encounter Details Date Type Department Care Team (Latest Contact Info) Description 09/17/2019 Transcribe Orders [facility] [address] [address] Susana Rollins PA [address] [place] [address] Abdominal pain, left lower quadrant (Primary Dx); [...] EST) LIPASE 18 16 - 63 U/L [facility] Blood 09/17/2019 10:1 3 AM EST 09/17/2019 10:17 AM EST us Susana MULLER LAB BLOOD ORDERABLES Final Result [facility] [address] [place] [address] * Comprehensive metabolic panel (09/17/2019 10:13 AM EST) SODIUM 140 133 - 146 mmol/L [facility] POTASSIUM 4.3 3.3 - 5.1 mmol/L [facility] CHLORIDE 104 96 - 108 mmol/L [facility] CO2 27 21 - 35 mmol/L [facility] BUN 6 6 - 19 mg/dL [facility] CREATININE 0.80 0.5 - 1.5 mg/dL [facility] GLUCOSE 72 70 - 99 mg/dL [facility] ALBUMIN 4.4 3.9 - 4.8 g/dL [facility] TOTAL PROTEIN 7.0 6.5 - 8.0 g/dL [facility] CALCIUM 9.2 8.4 - 10.3 mg/dL [facility] ALKALINE PHOSPHATASE 56 39 - 117 U/L [facility] TOTAL BILIRUBIN 0.4 0.0 - 1.2 mg/dL [facility] AST 26 0 - 37 U/L [facility] ALT 15 0 - 40 U/L [facility] GLOBULIN 2.6 1 - 4.8 g/dL [facility] EGFR >120 >59 mL/min/1.7 3m2 [facility] Comment:If patient is black, multiply result by 1.159. Estimated glomerular filtration rate calculated using the CKD-EPI equation. ANION GAP 13 10 - 20 mmol/L [facility] Blood 09/17/2019 10:1 3 AM EST 09/17/2019 10:17 AM EST us Susana MULLER LAB BLOOD ORDERABLES Final Result [address] [address] * CBC (09/17/2019 10:13 AM EST) WBC 5.94 4.00 - 11.00 K/uL [facility] Comment:Note Reference Range updates to all CBC and Differential results. RBC 4.91 4.48 - 5.88 M/uL [facility] HGB 14.8 13.4 - 17.5 g/dL [facility] Comment:Note updated Referen ce Ranges for all CBC and Differential results. HCT 43.8 38.0 - 51.0 % [facility] PLT 377 140 - 430 K/uL [facility] MCV 89.2 78.0 - 97.0 fL [facility] MCH 30.1 25.0 - 33.0 pg [facility] MCHC 33.8 32.0 - 36.0 g/dL [facility] RDW 12.9 11.0 - 15.0 % [facility] MPV 9.4 8.4 - 12.8 fl [facility] NRBC 0.00 0 /100 WBCs [facility] ABSOLUTE NRBC 0.00 0 K/uL [facility] Blood 09/17/2019 10:1 3 AM EST 09/17/2019 10:17 AM EST us Susana MULLER LAB BLOOD ORDERABLES Final Result Performing Organization Address City/State/[facility] Co de Phone Number [facility] [address] [place] [address] documented in this encounter Visit Diagnoses Diagnosis Abdominal pain, left lower quadrant- Primary Bloating Flatulence, eructation, and gas pain Nausea Nausea alone documented in this encounter Care Teams Fingernail Technician Relationship Specialty Start Date End Date Noé Huynh NP [email or web address] PCP - General Family Medicine 09/17/19 Wali Long NP [facility] [place] [address] PCP - General Family Medicine 11/11/21 documented as of this encounter Additional Source Comments The information contained in this document represents components of the legal health record. It is not the complete legal health record.[facility]
--- NOTE | 2025-05-07 19:27 | ED.CHESTPAIN ---
HPI - Chest Pain General Chief Complaint: Chest Pain Stated Complaint: chest pain, ETOH Time Seen by Provider: 05/07/25 19:27 History of Present Illness ED Provider: Luciana YEE narrative: The patient is a 34-year-old male who has been having problems with pericarditis for over a year. He was 1st diagnosed with pericarditis I believe in February of 2024. He is also an alcoholic and his alcohol use has complicated his compliance with medications. He has had multiple emergency room visits for complaints of chest pain attributed to his pericarditis. Although he was found to have a pericardial effusion in February of 2024 subsequent studies have not shown any significant reaccumulation of pericardial effusion. Additionally the patient was evaluated for his chest pain at [facility] at the end of March 2025. A CT angiogram that time showed a ?single segmental pulmonary embolism in the lingula. ? There was no sign of right heart strain. At the same time the patient had bilateral lower extremity ultrasounds which were negative for DVT. He was discharged from [facility] on April 04 but then re-presented to the [facility] Emergency room 2 days later on April 06 after a fall. He was hospitalized at that time for alcohol withdrawal symptoms. He was then discharged on April 09 to a detox facility in [place]. I believe that he was in the [place] area until about a week ago when he returned home. After returning home he found that his relationship with his partner and family was very bad and he started drinking again about a week ago. He came to the emergency department 2 days ago on May 05. At that visit he was treated symptomatically in the emergency department but ultimately signed out AMA from the emergency room because of family problems at home. The patient says that he has continued drinking. He is continuing to have chest pain that he says is typical of his pericarditis pain. He says that he has been drinking alcohol because of his sadness and his pain. He denies suicidality. He says that he would like help. Related Data Previous Rx's ?Medication ?Instructions ?Recorded prednisone 10 mg tablet 40 mg (4 x 10 mg) PO DAILY 14 days 03/30/25 #56 tabs Allergies Allergy/AdvReac Type Severity Reaction Status Date / Time No Known Allergies Allergy Verified 05/07/25 16:23 [facility] Past Medical History Medical History Dysphagia, pharyngoesophageal phase Pericarditis Pericardial effusion Alcohol use disorder, moderate, dependence MDD (major depressive disorder), recurrent episode, moderate Nausea with vomiting Alcohol use disorder Anxiety and depression History of seizure due to alcohol withdrawal ETOH abuse Surgical History History of surgery H/O endoscopy Family History Family History Other Diabetes Social History Social History Household Members: Family Housing: House Do you presently have visiting nurse or other home services: No Alcohol intake: current Alcohol intake frequency: 0-2 drinks per day Alcohol type: beer and hard liquor Patient Tobacco Use Status: Former Tobacco user Tobacco use type: Cigarette e-Cigarette/Vaping Use: Never Used Second Hand Smoke Exposure: No Substance Use Type: Marijuana Advance Directives Date on File: 11/07/22 service: No Current occupational status: employed Physical Exam Vital Signs: Vital Signs: Last Vital Signs Temp 99.1 F 05/07/25 23:14 Pulse 74 05/07/25 23:14 Resp 23 H 05/07/25 23:14 BP 124/83 05/07/25 23:14 Pulse Ox 96 05/07/25 23:14 O2 Del Method Room Air 05/07/25 23:14 BMI result Body Mass Index 29.0 Medications Administered Discontinued Medications Generic Name Dose Route Start Last Admin Trade Name Freq PRN Reason Stop Dose Admin Diazepam 10 mg 05/07/25 20:00 05/07/25 20:20 Diazepam 10 Mg/2 Ml Cartridge IVPUSH 05/07/25 20:01 10 mg STAT STA Administration Droperidol 1.25 mg 05/07/25 19:31 05/07/25 19:38 Droperidol 5 Mg/2 Ml Vial IVPUSH 05/07/25 19:32 1.25 mg ONCE ONE Administration Enoxaparin Sodium 90 mg 05/07/25 22:50 05/07/25 23:16 Enoxaparin Sodium 100 Mg/Ml Syringe 1 mg/kg (90 mg) 05/07/25 22:51 90 mg SUBCUT Administration ONCE ONE Sodium Chloride 1,000 mls @ 999 mls/hr 05/07/25 19:45 05/07/25 22:19 Ns IV 05/07/25 20:45 Infused .Q1H1M EL Infusion Iohexol 100 ml 05/07/25 21:14 05/07/25 21:14 Iohexol 350 Mg/Ml 100 Ml Infus..Btl IV 05/07/25 21:15 65 ml ONCE ONE Administration Morphine Sulfate 4 mg 05/07/25 19:30 05/07/25 19:38 Morphine Sulfate 4 Mg/Ml Cartridge IVPUSH 05/07/25 19:31 4 mg ONCE ONE Administration Protocol Medical Decision Making Medical Decision Making [facility] Narrative: The patient is a 34-year-old male with a history of alcoholism. He also has a history of pericarditis and was last found to have a significant pericardial effusion I believe about a year ago. The patient seems to have multiple ER presentations in which he complains of pain that he attributes to his pericarditis. He has had multiple CT scans of his chest because of the symptoms. About 6 weeks ago he had such a presentation to [facility] and had a CT pulmonary angiogram that showed a single small pulmonary embolism. At that time he was started on apixaban. With regard to his pericarditis symptoms he has been prescribed multiple different medications including prednisone as well as nonsteroidal anti-inflammatories. He has a grocery bag full of medications that he has been prescribed over the last several months. I believe he has spent much of the last 5 weeks at a sober house or detox facility in the [place] area. He returned recently and I believe his girlfriend broke up with him. He says he relapsed with the alcohol drinking because of that. He says he stopped taking his apixaban once he started drinking again. He was here 2 days ago complaining of chest pain but then left the emergency room AMA. He returns tonight. When I 1st saw him he was tachycardic, hypertensive, and very shaky. He was complaining of chest pain. Clinically he looks like someone an alcohol withdrawal although his alcohol was 303. He had 1st been given morphine and droperidol for his chest pain symptoms. He was later given 10 mg of IV diazepam for what I believed was alcohol withdrawal. His D-dimer was elevated. A CT pulmonary angiogram was done. This shows small peripheral pulmonary emboli bilaterally. No large pulmonary emboli. The radiologist, did that the RV to LV ratio was 1-1, a borderline finding. I do not think the patient is likely experiencing significant right heart strain from pulmonary emboli today given that his pulmonary emboli are small and his troponin is undetectable. There was no apparent pericardial effusion present on the CT. My over all impression is that the patient has significant problems with alcohol and was showing signs of possible early alcohol withdrawal even though his alcohol level was high. He improved with IV diazepam. I think his capacity to manage his symptoms is poor and I think hospitalization with the phenobarb protocol would be appropriate. I think he has been noncompliant with his apixaban recently. He was given an injection of enoxaparin. He will be admitted to the hospitalist service. Lab Data 05/07/25 17:29 05/07/25 17:28 Labs: Lab Results 05/07/25 05/07/25 Range/Units 17:28 17:29 WBC 5.8 (4.8-10.8) X10*3/uL RBC 4.44 L (4.60-5.80) X10*6/uL Hgb 12.6 L (14.0-18.0) g/dl Hct 38.2 L (42.0-52.0) % MCV 86.0 (80.0-98.0) fL MCH 28.4 (27.0-33.0) pg MCHC 33.0 (31.0-36.0) g/dl RDW 14.3 (11.0-16.0) % Plt Count 324 D (160-400) X10*3/uL MPV 8.2 L (9.4-12.4) fL Immature Gran % (Auto) 0.5 H (0.0-0.4) % Neut % (Auto) 88.6 H (45-73) % Lymph % (Auto) 8.8 L (20-40) % [place] % (Auto) 1.9 L (2-11) % Eos % (Auto) 0.0 (0-4) % Baso % (Auto) 0.2 (0-2) % Lymph # (Auto) 0.5 L (1.2-4.9) X10*3/uL [place] # (Auto) 0.1 (0.1-1.2) X10*3/uL Eos # (Auto) 0.0 (0.0-0.4) X10*3/uL Baso # (Auto) 0.0 (0.0-0.2) X10*3/uL Abs Immat Gran (auto) 0.03 (0.00-0.03) X10*3/uL Absolute Neuts (auto) 5.1 (2.0-8.3) x10*3/uL Absolute Nucleated RBC 0.000 (0.0-0.012) X10*3/uL Nucleated RBC % (auto) 0.0 (0.0-0.2) /100WBC ESR 2 (0-15) MM/HR PT 11.7 (10.9-12.4) SEC INR 1.0 (0.9-1.1) D-Dimer High Sensitivty 577 NG/ML Sodium 147 H (135-145) mmol/L Potassium 3.3 (3.3-5.1) mmol/L Chloride 107 (96-108) mmol/L Carbon Dioxide 27 (22-29) mmol/L Anion Gap 16 (12-20) BUN 4 L (9-16) mg/dL Creatinine 0.63 (0.5-1.4) mg/dL Estim Creat Clear Calc 189.9 Estimated GFR > 60 Random Glucose 146 H (60-115) mg/dL Calcium 8.2 L (8.4-10.2) mg/dL Magnesium 2.4 (1.6-2.6) mg/dL Total Bilirubin 0.2 (0.0-1.0) mg/dL Direct Bilirubin < 0.2 (0.0-0.5) mg/dL AST 92 H (5-37) U/L ALT 168 H (0-40) U/L Alkaline Phosphatase 90 (39-117) U/L Troponin I High Sens < 2.7 (<3.5-35.0) ng/L Total Protein 6.6 (6.5-8.0) g/dL Albumin 4.3 (3.5-5.0) g/dL Ethyl Alcohol 303 H* mg/dL Critical Care Time Critical Care Time Critical Care Time: Yes Total Critical Care Time: 35 Attestation: The patient was critically ill with a high probability of imminent or life-threatening deterioration. ?I spent greater than 30 minutes of discontinuous time evaluating the patient, delivering critical care at the bedside, discussing evaluating data with consultants. ?Critical care time does not include time spent performing separately billable procedures or teaching. ?Time spent performing critical care with 35 minutes. Discharge Plan Discharge Clinical Impression: Alcohol withdrawal, Pulmonary emboli, History of pericarditis Patient Disposition: Admitted As Inpatient Print Language: Haitian
[2025-05-07] MEDS: diazePAM 10 MG/2 ML CARTRIDGE IVPUSH (20:20)
[2025-05-07 20:24] LABS: D Dimer High Sensitivity 577 NG/ML
[2025-05-07] MEDS: iohexoL 350 MG/ML 100 ML INFUS..BTL IV (21:14)
--- NOTE | 2025-05-07 22:40 | HO.NURTONUR ---
Pt here today w/ c/o cp and etoh withdrawals. Pt has significant hx of pericarditis, according to pt had window 6 months ago, here for worsening cp over the past week. Pt admits the pain was never really gone since first dx'd, but now its really bad to the point pt is self medicating w/ etoh. Pt refuses to answer exactly how much he drinks daily but states he may have had close to 60 beers within the past 12 hours. Pt also admits to noncompliance w/ meds to help w/ his pericarditis pain. Pt arrived to ED and was tachy 110-120. After approx sitting in ED for 2 hours pt began c/o etoh withdrawals and medicated w/ valium.
--- NOTE | 2025-05-07 23:26 | PC.NURSE ---
this rn assumed care of pt, pt medicated per mar at this time, pt ciwa=12. awaiting md orders
--- NOTE | 2025-05-07 23:31 | P.HPHOSP_ITS ---
History of Present Illness Date of Service: 05/07/25 Attending physician on admission: Rubina Ashby Chief Complaint: Chest pain Jack Burns is a 34 years old man with past medical history significant for multiple hospitalizations due to alcohol withdrawal and intoxication, chronic pericarditis, small pulmonary embolism noncompliant with Eliquis and ongoing alcohol abuse who presents to the emergency department complaining of left-sided chest pain without radiation that started 2 days ago. The pain increases with deep inspiration. He also reports having a little bit of shortness on breath. He denied headache, abdominal pain, nausea, vomiting or diarrhea. He was recently receiving detox in [email or web address] and has not been taking his naltrexone. He actually said that the only medications he has been taking his prednisone and colchicine. He said that he continue to drink alcohol every day and his last alcoholic drink was today. Per chart review, TTE December 2024 -normal LV function, abnormal septal motion with accessory respiratory change and no evidence of pericardial effusion. In the ED, he was found to have stable vital signs. Blood workup showed WBC count of 5.5, hemoglobin 12.6 and platelets 324. INR is 1.0. D-dimer is 577. There is hypernatremia 147 without other electrolyte imbalances. BUN is 4 and creatinine 0.63. LFT remarkable for elevated transaminases with normal bilirubin and alk-phos. Troponin is < 2.7 and albumin is normal. ETOH level is 303. Chest CTA today showed small bilateral posterior lower lobe emboli, borderline right heart enlargement question of right heart strain. ECG showed sinus tachycardia. ED tx: Droperidol 1.25 mg IV, morphine 4 mg IV, Valium 10 mg IV, Lovenox 90 mg subcut, NS 1 L bolus Review of Systems 2 Review of Systems: All 12 systems were reviewed and normal except as noted in HPI. [facility] Medical History Dysphagia, pharyngoesophageal phase Pericarditis Pericardial effusion Alcohol use disorder, moderate, dependence MDD (major depressive disorder), recurrent episode, moderate Nausea with vomiting Alcohol use disorder Anxiety and depression History of seizure due to alcohol withdrawal ETOH abuse Family History Other Diabetes Surgical History History of surgery H/O endoscopy Social History Household Members: Family Housing: House Do you presently have visiting nurse or other home services: No Alcohol intake: current Alcohol intake frequency: 0-2 drinks per day Alcohol type: beer and hard liquor Patient Tobacco Use Status: Former Tobacco user Tobacco use type: Cigarette e-Cigarette/Vaping Use: Never Used Second Hand Smoke Exposure: No Substance Use Type: Marijuana Advance Directives Date on File: 11/07/22 service: No Current occupational status: employed Meds Allergies Allergy/AdvReac Type Severity Reaction Status Date / Time No Known Allergies Allergy Verified 05/07/25 16:23 Active Medications: Current Medications Acetaminophen (Acetaminophen 325 Mg Tablet) 650 mg PO Q6H PRN PRN Reason: Pain, Mild 1-3,fever,headache Calcium Carbonate (Calcium Carbonate 750 Mg Tab.Chew) 750 mg PO Q4H PRN PRN Reason: Heartburn Hydromorphone HCl (Hydromorphone Hcl 0.5 Mg/0.5 Ml Syringe) 0.5 mg IVPUSH Q3H PRN; Protocol PRN Reason: Pain, Severe (Pain Scale 7-10) Thiamine HCl 100 mg/ Sodium (Chloride) 101 mls @ 202 mls/hr IV ONCE STA Stop: 05/07/25 23:56 Dextrose/Sodium Chloride (D5ns) 1,000 mls @ 125 mls/hr IVCONT .Q8H EL Stop: 05/08/25 07:29 Magnesium Hydroxide (Milk Of Magnesia 30 Ml Oral.Susp) 30 ml PO DAILY PRN PRN Reason: Constipation Melatonin (Melatonin 3 Mg Tablet) 6 mg PO BEDTIME PRN PRN Reason: Insomnia Pharmacy Consult (Consult Rx Etoh Phenob Im/Po) 1 each MISCELLANE ONCE PRN; Protocol PRN Reason: Consult order Prochlorperazine Edisylate (Prochlorperazine Edisylate 10 Mg/2 Ml Vial) 5 mg IVPUSH Q6H PRN PRN Reason: Nausea and Vomiting Sodium Chloride (0.9 % Sodium Chloride Flush 3 Ml Syringe) 3 ml IVFLUSH QSHIFT EL Physical Exam 2 Vital Signs and Narrative: Vital Signs: Last Vital Signs Temp 99.1 F 05/07/25 23:14 Pulse 74 05/07/25 23:14 Resp 23 H 05/07/25 23:14 BP 124/83 05/07/25 23:14 Pulse Ox 96 05/07/25 23:14 O2 Del Method Room Air 05/07/25 23:14 BMI result Body Mass Index 29.0 Constitutional - somnolent, No apparent distress HEENT - PER, EOMI. Normal sclerae. Dry oral mucosa. Chest - left chest tenderness to palpation Heart - RRR, No murmurs Lungs - Normal lung expansion, Normal respiratory effort, No respiratory distress, CTA bilaterally Abdomen - NT / ND; +BS; No rebound or guarding Extremities - no calf tenderness bilaterally, no swelling Musculoskeletal - Normal inspection, normal ROM Skin - Warm/Dry Neurological - Alert & oriented x3. Moving all extremities spontaneously. Psychological - depressed affect Results Labs 05/07/25 17:29 05/07/25 17:28 Labs: Laboratory Results - last 24 hr 05/07/25 05/07/25 17:28 17:29 MCV 86.0 MCH 28.4 MCHC 33.0 RDW 14.3 Plt Count 324 D MPV 8.2 L Immature Gran % (Auto) 0.5 H Neut % (Auto) 88.6 H Lymph % (Auto) 8.8 L [place] % (Auto) 1.9 L Eos % (Auto) 0.0 Baso % (Auto) 0.2 Lymph # (Auto) 0.5 L [place] # (Auto) 0.1 Eos # (Auto) 0.0 Baso # (Auto) 0.0 Abs Immat Gran (auto) 0.03 Absolute Neuts (auto) 5.1 Absolute Nucleated RBC 0.000 Nucleated RBC % (auto) 0.0 ESR 2 PT 11.7 INR 1.0 D-Dimer High Sensitivty 577 Anion Gap 16 Estim Creat Clear Calc 189.9 Estimated GFR > 60 Random Glucose 146 H Calcium 8.2 L Magnesium 2.4 Total Bilirubin 0.2 Direct Bilirubin < 0.2 AST 92 H ALT 168 H Alkaline Phosphatase 90 Troponin I High Sens < 2.7 Total Protein 6.6 Albumin 4.3 Ethyl Alcohol 303 H* Assessment and Plan (1) Alcohol intoxication: Qualifiers: Complication of substance-induced condition: uncomplicated Qualified Code(s): F10.920 - Alcohol use, unspecified with intoxication, uncomplicated Status: Acute (2) Bilateral pulmonary embolism: Status: Acute Plan Jack Burns is a 34 y/o man with a PMHx significant alcohol withdrawal and intoxication, chronic pericarditis, small pulmonary embolism noncompliant with Eliquis diagnosed at [facility] (March 2025) and ongoing alcohol abuse who presents with: Bilateral small lower lobe emboli. Noncompliant with Eliquis. Pulse oximetry. Telemetry. Supplemental O2 to keep O2 sats > 90%. Chest CT showed borderline right heart enlargement ?Right heart strain. Check TTE. Continue Lovenox 90 mg subQ q.12. Chest pain, likely multifactorial: Pulmonary emboli, musculoskeletal, possible esophagitis due to excessive alcohol intake; ?Pericarditis. Chest CT showed no pericardial effusion. ECG -no ST-elevation. Continue gabapentin, Robaxin, sucralfate and Protonix. Check TTE. Hold prednisone and colchicine for now until Cardiology evaluation. Alcohol abuse, currently intoxicated. Noncompliance with naltrexone. CIWA, phenobarbital withdrawal symptoms noted. Thiamine, folic acid and multivitamins. Patient advised to abstain from alcohol. Addiction Medicine and social work consults. Hypernatremia. IV fluids: D5. Continue to monitor sodium level. Depression. Continue citalopram. med rec pending Code status: Full DVT prophylaxis: Lovenox GI prophylaxis: Protonix IV Patient will need hospitalization for at least 2 midnights for bilateral small lower emboli treatment with Lovenox subacute as the patient has been noncompliant with Eliquis; he will also need further evaluation with echocardiogram and evaluation by chinese instructor. This note is constructed using voice recognition software. While every effort has been made to ensure accuracy, crew clerk errors may have been included. Quality Stroke Does the patient have a stroke diagnosis?: No VTE Prior VTE?: No VTE Risk Level:: Medical - moderate - high VTE Device Contraindication: Treatment Not Indicated VTE Drug Contraindication: N/A - Med Ordered
[2025-05-07] MEDS: Thiamine HCL 100 MG in 0.9 % Sodium Chloride 100 ML 202 MG IV (23:50)
--- NOTE | 2025-05-08 00:01 | PC.NURSE ---
pt ciwa=8 at this time. MD Drake at bedside with pt, per MD Drake, pt does not need Phenobarb at this time.
[2025-05-08 01:47] VITALS: BP 125/82; PULSE 90; RESP 12; TEMP 37.2; O2SAT 97
--- NOTE | 2025-05-08 01:57 | PC.NURSE ---
this rn contacted pharmacy at this time to retime phenobarb medication time as dose is 2 hours late. Dose retimed to 0200 and all following doses retimed per pharmacy
[2025-05-08] MEDS: PHENobarbitaL sodium 130 MG/ML IM ONCE 234 MG IM (02:00)
[2025-05-08 03:57] VITALS: RESP 17
--- NOTE | 2025-05-08 04:01 | PC.NURSE ---
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
[2025-05-08 04:23] VITALS: BP 145/91; PULSE 68; RESP 17; TEMP 36.8
[2025-05-08 05:35] LABS: Hematocrit 34.1 % (42.0-52.0); Mean Corpuscular Volume 85.5 fL (80.0-98.0); NRBC Abs Auto 0.000 X10*3/uL (0.0-0.012); NRBC Pct Auto 0.0 /100WBC (0.0-0.2); PLT CLUMP 1; Red Blood Count 3.99 X10*6/uL (4.60-5.80); SCAN SMEAR FLAG 1
[2025-05-08 05:37] LABS: Hemoglobin 11.4 g/dl (14.0-18.0); Imm Gran Abs Auto 0.05 X10*3/uL (0.00-0.03); Imm Gran Pct Auto 0.4 % (0.0-0.4); Lymphocytes Absolute Auto 2.5 X10*3/uL (1.2-4.9); MANUAL DIFF FLAG SCAN; Mean Corpuscular HGB Conc 33.4 g/dl (31.0-36.0); Mean Corpuscular Hemoglobin 28.6 pg (27.0-33.0)
[2025-05-08 05:39] LABS: Platelet Count 236 X10*3/uL (160-400); White Blood Count 13.2 X10*3/uL (4.8-10.8)
[2025-05-08 05:50] VITALS: BP 141/94; PULSE 72; RESP 18; TEMP 36.6; O2SAT 95
[2025-05-08] MEDS: PHENobarbitaL sodium 130 MG/ML VIAL IM Q3Hx2 175 MG IM ×2 (05:51→07:48)
[2025-05-08 06:05] LABS: Appearance Urine Clear; Glucose Urine UA Negative (Negative); PH 8.5 (5.0-9.0); Specific Gravity - Urine 1.025 (1.005-1.025)
[2025-05-08 06:07] LABS: Alanine Aminotransferase 129 U/L (0-40); Albumin Level 3.5 g/dL (3.5-5.0); Alkaline Phosphatase 80 U/L (39-117); Anion Gap 15 (12-20); Aspartate Amino Transferase 76 U/L (5-37); Blood Urea Nitrogen 5 mg/dL (9-16); Calcium 7.9 mg/dL (8.4-10.2); Carbon Dioxide 23 mmol/L (22-29); Chloride 107 mmol/L (96-108); Creatinine Clr Calc Pharmacy 199.4; Estimated Glomerular Filt Rate > 60; Magnesium 1.8 mg/dL (1.6-2.6); Potassium 3.2 mmol/L (3.3-5.1); Sodium 142 mmol/L (135-145); Total Protein 5.8 g/dL (6.5-8.0); Troponin-I High Sensitivity < 2.7 ng/L (<3.5-35.0)
[2025-05-08 06:16] LABS: Cannabinoid Screen Urine Not Detected (Not Detect)
--- NOTE | 2025-05-08 07:00 | CA_ITS ---
Transthoracic Echocardiogram Patient (Last, First, Middle): Jack Burns, Gender: M Date of : 1990 Age: 34 Procedure Date: 05/08/2025 Procedure Type: Transthoracic Echocardiogram Location: ER Height: 177.8 cm Weight: 91.63 kg BSA: 2.10 m2 Heart Rate: 62 bpm BP: 138 / 86 mmHg Crust Sorter: SB Referring MD: Rubina Ashby MD Symptoms: chest pain Study Quality: Adequate ECG Rhythm: Sinus Conclusions: - The left ventricular systolic function is normal. The calculated ejection fraction is 59% by biplane method. - No obvious valvular pathology seen on this study. Findings Procedure Information Contrast agent, definity, is being given per protocol without apparent complications. Left Ventricle Normal left ventricular cavity size. There is normal left ventricular wall thickness. The left ventricular systolic function is normal. The calculated ejection fraction is 59% by biplane method. There is no evidence of regional wall motion abnormalities. Diastolic function is normal for age. Right Ventricle Mildly increased right ventricular cavity size. There is normal right ventricular systolic function. Atria Both atria are normal in size. Aortic Valve There is a normal trileaflet aortic valve. There is no aortic valve stenosis. There is no aortic valve regurgitation. Mitral Valve The mitral valve appears normal. There is no mitral valve regurgitation. There is no mitral valve stenosis. Pulmonic Valve The pulmonic valve is likely normal. Tricuspid Valve There is no tricuspid valve regurgitation. Tricuspid regurgitation envelope is inadequate for calculation of right ventricular systolic pressure. Great Vessels The asc aorta is normal in size. Venous The inferior vena cava is normal in size and collapses greater than 50% with inspiration. Pericardium/Pleural There is no evidence of pericardial effusion. Prior Study Comparison No significant change compared to prior study dated: 12/28/2024. Recommendations, Care & Conclusions No obvious valvular pathology seen on this study. Measurements 2D Linear Measurements IVSd: 0.94 0.6-0.9/0.6-1.0 cm LVIDd: 4.78 3.9-5.3/4.2-5.9 cm LVIDd Index: 2.28 2.4-3.2/2.2-3.1 cm/m2 LVIDs: 3.45 2.0-3.6 cm LVPWd: 1.06 0.7-1.1 cm LA Diam: 3.80 2.7-3.8/3.0-4.0 cm LAIDs Index: 1.81 1.5-2.3 cm/m2 LV Mass: 210.26 67-162/88-224 g LV Mass Index: 100.12 43-95/49-115 g/m2 LVOT Diam: 2.40 3.0+(-)1.3 cm 2D Systolic Function EF 4C: 60.30 >55% EF 2C: 56.90 >55% EF BiP: 58.80 >55% Mitral Valve MV Pk E: 1.03 MV PK A: 0.63 MV Decel Time: 202.00 E/A: 1.60 E'Lateral: 15.30 E'Medial: 12.50 E/E' Med: 8.20 E/E' Lat: 6.70 PHT: 59.00 MVA PHT: 3.73 Decel Guadalupe: 5.08 Aortic Valve AoV Pk Saud: 1.19 AoV Pk Grad: 6.00 GIULIANO: 4.40 LVOT LVOT Pk Saud: 1.16 LVOT Mn Saud: 0.77 LVOT VTI: 0.21 LVOT Pk Grad: 5.00 LVOT Mn Grad: 3.00 LVOT Diam: 2.40 LVOT Area: 4.52 Diastolic Function MV Pk E: 1.03 MV Pk A: 0.63 E/A: 1.60 E'Medial: 12.50 E/E' Med: 8.20 E' Laterial: 15.30 E/E' Lat: 6.70 Right Ventricle TAPSE (mm): 25.70 TVS' Saud: 14.50 Tricuspid Valve RA Press: 3.00 Great Vessels Aorta Sinus of Valsalva: 3.30 2.0-3.5 cm Ao Asc: 2.80 2.1-3.4 cm Pulmonary Veins Pulm Vein S/D 0.90 Pulmonary Valve PV Pk Saud: 0.99 Peak PV Grad: 4.00 Updated in Other Vendor System with Status of Final Jose Michel MD electronically signed on 05/08/2025 11:35:44 AM with status of Final
[2025-05-08] MEDS: Potassium Chloride Packet 20 MEQ PACKET 40 MEQ PO (07:46)
[2025-05-08] MEDS: Milk of Magnesia 30 ML ORAL.SUSP PO (07:46)
[2025-05-08 07:57] VITALS: BP 146/100; PULSE 85; RESP 17; TEMP 36.8; O2SAT 98
--- NOTE | 2025-05-08 08:42 | PHA.MEDREC ---
Addendum entered by Rylan Cortes PharmD 05/08/25 08:48: reviewed Original Note: Pharmacy Consult ? Medication Reconciliation Pharmacy has completed the medication reconciliation. Spoke with pt and he confirmed his medications. Pt confirmed he takes Colchicine 0.6mg tabs QD and not BID as written, he ran out of his Lidocaine and Methocarbamol tablet in the last few days, pt states he is not taking Naltrexone at this time, pt almost done with his Prednisone 20mg (2 tabs (40mg) daily) regimen, stating he started it the second week of April and pt confirmed he takes Vitamin B-1 QD but doesn't remember the dose of it at this time.
[2025-05-08] MEDS: Potassium Chloride ER 20 MEQ TAB.ER.PRT PO (08:43)
[2025-05-08] MEDS: Thiamine HCL 100 MG in 0.9 % Sodium Chloride 100 ML 202 MG IV (08:43)
--- NOTE | 2025-05-08 09:27 | MHC.CM.PN ---
CM met with Patient at bedside, in th ED. Patient no longer lives with his /HCP/Nani; he has been staying with a Friend. Home self care is Patient's goal; he may benefit from a Recovery Team Consult R/T ETOH. CM has initiated and will follow for dc planning. PCP/PA is Benny Lea and Patient may need assist with transport at dc. Initialized on 05/08/25 09:23 - END OF NOTE
--- NOTE | 2025-05-08 09:37 | HO.NURTONUR ---
Pt is a 34yo M with PMH significant for ETOH withdraw, small PEs, chronic pericarditis. Came in to ED for 2 day hx of left sided chest pain that worsens with inspiration. Has not been compliant with eliquis. CTA showed small ling lower lobe PEs. Pt to be admitted for high dose lovenox therapy. Placed on phenobarb protocol. CIWA 2 @0930. Pt a/ox4. follows commands, calm and cooperative. NSR on the monitor. C/o burning pain midsternal chest, non radiating. Worse with movement. Pt receiving dilaudid for pain. Clear BBS, 97% on RA. No cough/congestion. Voids using urinal. Ambulates independently. 20gRUA USGIV.
[2025-05-08 13:15] VITALS: BP 132/94; PULSE 81; RESP 15; O2SAT 95
[2025-05-08] MEDS: oxyCODONE HCl Immed Release 5 MG TABLET PO (14:16)
--- NOTE | 2025-05-08 14:45 | PM.CNGS ---
History of Present Illness Consult details Consult date: 05/08/25 Reason for consult: other (PE) Narrative: 34-year-old gentleman with history significant for alcohol intoxication and subsequent withdrawal has a prior history of pulmonary embolism who is on Eliquis. Upon workup had CTA of chest and was discovered to small bilateral posterior lobe emboli. There was borderline right heart enlargement and question of right heart strain. At the time of my exam he was breathing comfortably at room air. He did state that he did it experience some discomfort when he had a deep breath. He now presents for vascular evaluation Review of Systems Review of Systems: Yes all other systems are reviewed and are negative Constitutional: Constitutional: Reports no additional constitutional complaints ENT: Reports Normal hearing present Cardiovascular: Cardiovascular: Denies chest pain, Denies chest pain at rest, Denies chest pain with activity and Denies pedal edema Respiratory: Respiratory: Denies cough Gastrointestinal: Gastrointestinal: Denies abdominal pain Musculoskeletal: Musculoskeletal: Denies abnormal gait, Denies muscle cramps and Denies radiating pain into limb Integumentary/Breasts: Skin/Breast: Denies skin ulcer and Denies wounds Neurologic: Reports Normal hearing present and Denies abnormal gait Psychiatric: Psychiatric: Reports no additional psychiatric complaints PMFSH Past Medical History Medical History Dysphagia, pharyngoesophageal phase Pericarditis Pericardial effusion Alcohol use disorder, moderate, dependence MDD (major depressive disorder), recurrent episode, moderate Nausea with vomiting Alcohol use disorder Anxiety and depression History of seizure due to alcohol withdrawal ETOH abuse Family History Family History Other Diabetes Surgical History Surgical History History of surgery H/O endoscopy Social History Social History Household Members: Family Housing: House Do you presently have visiting nurse or other home services: No Alcohol intake: current Alcohol intake frequency: 0-2 drinks per day Alcohol type: beer and hard liquor Patient Tobacco Use Status: Former Tobacco user Tobacco use type: Cigarette Smoked in Last 30 Days: No e-Cigarette/Vaping Use: Never Used Second Hand Smoke Exposure: No Use of substances other than those prescribed or required for medical reasons: No Substance Use Type: Marijuana Advance Directives: Yes Advance Directives on File: Yes Advance Directives Date on File: 11/07/22 Do you have a plan to hurt others: No Plan Nutrition Risks: No Nutritional Risk service: No Current occupational status: employed Meds Allergies Allergy/AdvReac Type Severity Reaction Status Date / Time No Known Allergies Allergy Verified 05/07/25 16:23 Active Medications: Current Medications Acetaminophen (Acetaminophen 325 Mg Tablet) 650 mg PO Q6H PRN PRN Reason: Pain, Mild 1-3,fever,headache Calcium Carbonate (Calcium Carbonate 750 Mg Tab.Chew) 750 mg PO Q4H PRN PRN Reason: Heartburn Colchicine (Colchicine 0.6 Mg Tablet) 0.6 mg PO DAILY [facility] Last Admin: 05/08/25 14:18 Dose: 0.6 mg Enoxaparin Sodium (Enoxaparin Sodium 100 Mg/Ml Syringe) 90 mg SUBCUT BID [facility] Last Admin: 05/08/25 08:43 Dose: 90 mg Escitalopram Oxalate (Escitalopram Oxalate 10 Mg Tablet) 10 mg PO DAILY [facility] Famotidine (Famotidine 20 Mg Tablet) 20 mg PO DAILY [facility] Last Admin: 05/08/25 14:16 Dose: 20 mg Folic Acid (Folic Acid 1 Mg Tablet) 1 mg PO DAILY [facility] Last Admin: 05/08/25 08:43 Dose: 1 mg Gabapentin (Gabapentin 600 Mg Tablet) 600 mg PO TID [facility] Last Admin: 05/08/25 14:16 Dose: 600 mg Hydromorphone HCl (Hydromorphone Hcl 0.5 Mg/0.5 Ml Syringe) 0.5 mg IVPUSH Q3H PRN; Protocol PRN Reason: Pain, Severe (Pain Scale 7-10) Last Admin: 05/08/25 13:11 Dose: 0.5 mg Thiamine HCl 100 mg/ Sodium (Chloride) 101 mls @ 202 mls/hr IV DAILY [facility] Last Infusion: 05/08/25 09:20 Dose: Infused Magnesium Hydroxide (Milk Of Magnesia 30 Ml Oral.Susp) 30 ml PO DAILY PRN PRN Reason: Constipation Last Admin: 05/08/25 07:46 Dose: 30 ml Melatonin (Melatonin 3 Mg Tablet) 6 mg PO BEDTIME PRN PRN Reason: Insomnia Melatonin (Melatonin 3 Mg Tablet) 6 mg PO BEDTIME PRN PRN Reason: Sleep Multivitamins/Vitamin C (Multivitamin Tablet) 1 tab PO DAILY [facility] Last Admin: 05/08/25 08:43 Dose: 1 tab Omeprazole (Omeprazole 20 Mg Capsule.Dr) 20 mg PO BID@0630,1630 [facility] Pantoprazole Sodium (Pantoprazole Sodium 40 Mg/10 Ml Vial) 40 mg IVPUSH DAILY@0630 [facility] Last Admin: 05/08/25 05:51 Dose: 40 mg Pharmacy Consult (Consult Rx Etoh Phenob Im/Po) 1 each MISCELLANE ONCE PRN; Protocol PRN Reason: Consult order Phenobarbital (Phenobarbital 15 Mg Tablet) 45 mg PO BID [facility]; Protocol Stop: 05/09/25 21:01 Last Admin: 05/08/25 13:11 Dose: 45 mg Phenobarbital (Phenobarbital 15 Mg Tablet) 15 mg PO BID [facility]; Protocol Stop: 05/11/25 21:01 Phenobarbital (Phenobarbital 15 Mg Tablet) 15 mg PO DAILY [facility]; Protocol Stop: 05/13/25 09:01 Prednisone (Prednisone 20 Mg Tablet) 20 mg PO BID [facility] Last Admin: 05/08/25 14:17 Dose: 20 mg Prochlorperazine Edisylate (Prochlorperazine Edisylate 10 Mg/2 Ml Vial) 5 mg IVPUSH Q6H PRN PRN Reason: Nausea and Vomiting Sodium Chloride (0.9 % Sodium Chloride Flush 3 Ml Syringe) 3 ml IVFLUSH QSHIFT [facility] Last Admin: 05/08/25 07:49 Dose: Not Given Sucralfate (Sucralfate 1 Gm Tablet) 2 gm PO QIDWMHS [facility] Trazodone HCl (Trazodone Hcl 50 Mg Tablet) 50 mg PO BEDTIME [facility] Home Medications ?Medication ?Instructions ?Recorded ?Confirmed ?Last Taken ?Type apixaban 5 mg tablet (Eliquis) 5 mg PO BID 05/08/25 05/08/25 1 Day Ago History ~05/07/25 citalopram 20 mg tablet 20 mg PO DAILY 05/08/25 05/08/25 1 Day Ago History ~05/07/25 colchicine 0.6 mg tablet 0.6 mg PO DAILY 05/08/25 05/08/25 1 Day Ago History ~05/07/25 famotidine 20 mg tablet 20 mg PO DAILY 05/08/25 05/08/25 1 Day Ago History ~05/07/25 gabapentin 600 mg tablet 600 mg PO TID 05/08/25 05/08/25 1 Day Ago History ~05/07/25 melatonin 5 mg tablet 5 mg PO BEDTIME PRN Sleep 05/08/25 05/08/25 Unknown History pantoprazole 40 mg tablet,delayed 40 mg PO BID@0630,1630 05/08/25 05/08/25 1 Day Ago History release ~05/07/25 prednisone 20 mg tablet 20 mg PO BID 05/08/25 05/08/25 1 Day Ago History ~05/07/25 sucralfate 1 gram tablet 2 g PO QIDWMHS 05/08/25 05/08/25 1 Day Ago History ~05/07/25 trazodone 50 mg tablet 50 mg PO BEDTIME 05/08/25 05/08/25 1 Day Ago History ~05/07/25 Physical Exam Vital Signs: Vital Signs: Last Vital Signs Temp 98.3 F 05/08/25 07:57 Pulse 81 05/08/25 13:15 Resp 15 05/08/25 13:15 BP 132/94 H 05/08/25 13:15 Pulse Ox 95 05/08/25 13:15 O2 Del Method Room Air 05/08/25 13:15 BMI result Body Mass Index 29.0 Const: General: cooperative, healthy appearing and comfortable Orientation/consciousness: oriented to person, oriented to place and oriented to time HEENT: Head: Yes normal to inspection Neck: Neck: Yes normal visual inspection Carotids: no bruits Chest: Chest palpation & inspection: normal inspection of the chest Resp: Effort & Inspection: normal respiratory effort and able to speak in complete sentences Auscultation: clear to auscultation bilaterally, no crackles, no rales, no rhonchi and no wheezes Cardio: Rate: regular rate Rhythm: regular rhythm Heart sounds: S1 normal heart sound present and S2 normal heart sound present Bruits: no carotid bruits Peripheral pulses: Peripheral pulses 2+ throughout GI: Inspection: Yes normal to inspection Skin: Wounds: no wounds Hair: normal Neuro: General: oriented to person, oriented to place and oriented to time Cranial nerves: Yes CN's II-XII intact bilaterally and Yes Normal hearing present Cognition (Neuro): normal cognition Motor exam (neuro): 5/5 motor strength present throughout Extrem: Other: venous exam: No significant superficial varicosities or spider telangiectasias, minimal edema General: No clubbing, No cyanosis and No edema Psych: Appearance: grossly normal Mental Status: mental status grossly normal Speech and movement: Normal speech and movement present Results Labs 05/08/25 04:08 05/08/25 04:08 Labs: Abnormal lab results 05/07/25 05/07/25 05/08/25 Range/Units 17:28 17:29 04:08 WBC 13.2 H (4.8-10.8) X10*3/uL RBC 4.44 L 3.99 L (4.60-5.80) X10*6/uL Hgb 12.6 L 11.4 L (14.0-18.0) g/dl Hct 38.2 L 34.1 L (42.0-52.0) % MPV 8.2 L (9.4-12.4) fL Immature Gran % (Auto) 0.5 H (0.0-0.4) % Neut % (Auto) 88.6 H (45-73) % Lymph % (Auto) 8.8 L 19.2 L (20-40) % [place] % (Auto) 1.9 L (2-11) % Lymph # (Auto) 0.5 L (1.2-4.9) X10*3/uL Abs Immat Gran (auto) 0.05 H (0.00-0.03) X10*3/uL Absolute Neuts (auto) 9.5 H (2.0-8.3) x10*3/uL Sodium 147 H (135-145) mmol/L Potassium 3.2 L (3.3-5.1) mmol/L BUN 4 L 5 L (9-16) mg/dL Random Glucose 146 H (60-115) mg/dL Calcium 8.2 L 7.9 L (8.4-10.2) mg/dL AST 92 H 76 H (5-37) U/L ALT 168 H 129 H (0-40) U/L Total Protein 5.8 L (6.5-8.0) g/dL Urine Opiates Screen (Not Detect) Ur Barbiturates Screen (Not Detect) Ethyl Alcohol 303 H* mg/dL 05/08/25 Range/Units 05:55 WBC (4.8-10.8) X10*3/uL RBC (4.60-5.80) X10*6/uL Hgb (14.0-18.0) g/dl Hct (42.0-52.0) % MPV (9.4-12.4) fL Immature Gran % (Auto) (0.0-0.4) % Neut % (Auto) (45-73) % Lymph % (Auto) (20-40) % [place] % (Auto) (2-11) % Lymph # (Auto) (1.2-4.9) X10*3/uL Abs Immat Gran (auto) (0.00-0.03) X10*3/uL Absolute Neuts (auto) (2.0-8.3) x10*3/uL Sodium (135-145) mmol/L Potassium (3.3-5.1) mmol/L BUN (9-16) mg/dL Random Glucose (60-115) mg/dL Calcium (8.4-10.2) mg/dL AST (5-37) U/L ALT (0-40) U/L Total Protein (6.5-8.0) g/dL Urine Opiates Screen POSITIVE H (Not Detect) Ur Barbiturates Screen POSITIVE H (Not Detect) Ethyl Alcohol mg/dL Short CBC 05/07/25 05/08/25 Range/Units 17:29 04:08 WBC 5.8 13.2 H (4.8-10.8) X10*3/uL Hgb 12.6 L 11.4 L (14.0-18.0) g/dl Hct 38.2 L 34.1 L (42.0-52.0) % Plt Count 324 D 236 D (160-400) X10*3/uL BMP 05/07/25 05/08/25 17:28 04:08 Sodium 147 H 142 Potassium 3.3 3.2 L Chloride 107 107 Carbon Dioxide 27 23 BUN 4 L 5 L Creatinine 0.63 0.60 Calcium 8.2 L 7.9 L Liver Function 05/07/25 05/08/25 Range/Units 17:28 04:08 Total Bilirubin 0.2 0.4 (0.0-1.0) mg/dL Direct Bilirubin < 0.2 (0.0-0.5) mg/dL AST 92 H 76 H (5-37) U/L ALT 168 H 129 H (0-40) U/L Alkaline Phosphatase 90 80 (39-117) U/L Albumin 4.3 3.5 (3.5-5.0) g/dL Urine 05/08/25 Range/Units 05:55 Urine Color Yellow Urine Appearance Clear Urine pH 8.5 (5.0-9.0) Ur Specific [place] 1.025 (1.005-1.025) Urine Protein Negative (Neg-Trace) mg/dL Urine Glucose (UA) Negative (Negative) mg/dL All other labs normal. Assessment and Plan (1) Bilateral pulmonary embolism: Status: Acute Plan In short patient has bilateral pulmonary emboli. Current time they appeared to be relatively small. Would recommend anticoagulation. No need for thrombectomy. We did discuss risk factor modification. He will follow up with us on an as-needed basis. Thank you for allowing us to assist in his care. If there are any questions or concerns please do not hesitate to contact us. Procedures Date of Service Date of Service: 05/08/25
--- NOTE | 2025-05-08 15:30 | HO.ADDICT_ITS ---
History of Present Illness Date of Service: 05/08/25 Chief Complaint: Alcohol withdrawal syndrome Reason for Consult: AUD Sources of Information: patient interviewed and chart reviewed HPI Narrative: Patient is a 34 year old Male, with history of PE, pericarditiis, AUD, and depression. [place] [facility] [place]o [place] pain. Found to have small bilateral PE and concern for impending alcohol withdrawal, patient subsequently admitted. Chart reviewed, patient well known [place] [facility] via previous [place]. Patient seen in room 11 of main ED-awaiting transfer to medical floor. Patient awake, alert, engaged in interview. He reports he had been in treatment for about a month and abstaining from alcohol during that time. Since coming back to this area, he has resumed drinking. Was started on Naltrexone, but has not been taking it recently--willing to restart He identifies social stressors as a significant trigger. Patient self deprecating, expressing shame. T/W provided support and encouraged patient to be gentler to himself. Discussed importance of continuing to work on developing coping strategies and reminded that this is a process. He states that he has been drinking 4 locos. Unstable housing, however he reports that he may be able to stay with some people from [place]. In terms of withdrawal, he reports no sx. No tremor, diaphoresis or restlessness noted. Denies nausea, loose stools, but is reporting burning in his stomach Labs reviewed Past Psychiatric History: Inpatient: denies OP: none Past med trials: Lexapro (limited therapeutic efficacy) Medical Evaluation Reviewed: Yes Review of Systems Constitutional: Reports as per HPI Diagnostics Vital Signs (24Hr): Vital Signs - 24 hr 05/07/25 16:18 05/07/25 17:34 05/07/25 18:31 Temperature 98.6 F 98.2 F 98.1 F Pulse Rate 105 H 109 H 108 H Respiratory Rate 18 21 H 20 Blood Pressure 136/100 H 124/85 130/73 Pulse Oximetry 96 100 100 Oxygen Delivery Method Room Air Room Air Room Air 05/07/25 22:05 05/07/25 22:20 05/07/25 23:14 Temperature 98.1 F 98.1 F 99.1 F Pulse Rate 94 94 74 Respiratory Rate 15 15 23 H Blood Pressure 121/81 121/81 124/83 Pulse Oximetry 98 98 96 Oxygen Delivery Method Room Air Room Air Room Air 05/08/25 01:47 05/08/25 03:57 05/08/25 04:23 Temperature 98.9 F 98.2 F Pulse Rate 90 68 Respiratory Rate 12 17 17 Blood Pressure 125/82 145/91 H Pulse Oximetry 97 Oxygen Delivery Method Room Air 05/08/25 05:50 05/08/25 07:57 05/08/25 13:15 Temperature 98 F 98.3 F Pulse Rate 72 85 81 Respiratory Rate 18 17 15 Blood Pressure 141/94 H 146/100 H 132/94 H Pulse Oximetry 95 98 95 Oxygen Delivery Method Room Air Room Air Room Air BMI result Body Mass Index 29.0 Labs 05/08/25 04:08 05/08/25 04:08 Labs: Laboratory Results - last 48 hr 05/07/25 05/07/25 05/08/25 17:28 17:29 04:08 WBC 5.8 13.2 H RBC 4.44 L 3.99 L Hgb 12.6 L 11.4 L Hct 38.2 L 34.1 L MCV 86.0 85.5 MCH 28.4 28.6 MCHC 33.0 33.4 RDW 14.3 14.6 Plt Count 324 D 236 D MPV 8.2 L 10.0 Immature Gran % (Auto) 0.5 H 0.4 Neut % (Auto) 88.6 H 71.7 Lymph % (Auto) 8.8 L 19.2 L [place] % (Auto) 1.9 L 8.4 Eos % (Auto) 0.0 0.1 Baso % (Auto) 0.2 0.2 Lymph # (Auto) 0.5 L 2.5 [place] # (Auto) 0.1 1.1 Eos # (Auto) 0.0 0.0 Baso # (Auto) 0.0 0.0 Abs Immat Gran (auto) 0.03 0.05 H Absolute Neuts (auto) 5.1 9.5 H Absolute Nucleated RBC 0.000 0.000 Nucleated RBC % (auto) 0.0 0.0 Smear Tech's Comments VERIFIED ESR 2 PT 11.7 INR 1.0 D-Dimer High Sensitivty 577 Sodium 147 H 142 Potassium 3.3 3.2 L Chloride 107 107 Carbon Dioxide 27 23 Anion Gap 16 15 BUN 4 L 5 L Creatinine 0.63 0.60 Estim Creat Clear Calc 189.9 199.4 Estimated GFR > 60 > 60 Random Glucose 146 H 69 Calcium 8.2 L 7.9 L Magnesium 2.4 1.8 Total Bilirubin 0.2 0.4 Direct Bilirubin < 0.2 AST 92 H 76 H ALT 168 H 129 H Alkaline Phosphatase 90 80 Troponin I High Sens < 2.7 < 2.7 Total Protein 6.6 5.8 L Albumin 4.3 3.5 Urine Color Urine Appearance Urine pH Ur Specific [place] Urine Protein Urine Glucose (UA) Urine Ketones Urine Blood Urine Nitrite Ur Leukocyte Esterase Urine Opiates Screen Ur Buprenorphine Scrn Ur Oxycodone Screen Urine Methadone Screen Urine Fentanyl Screen Ur Barbiturates Screen Ur Phencyclidine Scrn Ur Amphetamines Screen U Benzodiazepines Scrn Urine Cocaine Screen U Marijuana (THC) Screen Ethyl Alcohol 303 H* 05/08/25 05:55 WBC RBC Hgb Hct MCV MCH MCHC RDW Plt Count MPV Immature Gran % (Auto) Neut % (Auto) Lymph % (Auto) [place] % (Auto) Eos % (Auto) Baso % (Auto) Lymph # (Auto) [place] # (Auto) Eos # (Auto) Baso # (Auto) Abs Immat Gran (auto) Absolute Neuts (auto) Absolute Nucleated RBC Nucleated RBC % (auto) Smear Tech's Comments ESR PT INR D-Dimer High Sensitivty Sodium Potassium Chloride Carbon Dioxide Anion Gap BUN Creatinine Estim Creat Clear Calc Estimated GFR Random Glucose Calcium Magnesium Total Bilirubin Direct Bilirubin AST ALT Alkaline Phosphatase Troponin I High Sens Total Protein Albumin Urine Color Yellow Urine Appearance Clear Urine pH 8.5 Ur Specific [place] 1.025 Urine Protein Negative Urine Glucose (UA) Negative Urine Ketones Negative Urine Blood Negative Urine Nitrite Negative Ur Leukocyte Esterase Negative Urine Opiates Screen POSITIVE H Ur Buprenorphine Scrn Not Detected Ur Oxycodone Screen Not Detected Urine Methadone Screen Not Detected Urine Fentanyl Screen Not Detected Ur Barbiturates Screen POSITIVE H Ur Phencyclidine Scrn Not Detected Ur Amphetamines Screen Not Detected U Benzodiazepines Scrn Not Detected Urine Cocaine Screen Not Detected U Marijuana (THC) Screen Not Detected Ethyl Alcohol Mental Status Exam Mental Status Exam Patient Appearance: Well Grooomed Level of Consciousness: Awake, Appropriate and Alert Patient Behavior: Appropriate and Cooperative Mood Description: Depressed Affect Description: Calm Speech Pattern: Clear Hallucinations: None Thought Process: Intact Thought Content: positive for Intact and positive for [place] Judgement: Fair Medications Medications Current Medications Acetaminophen (Acetaminophen 325 Mg Tablet) 650 mg PO Q6H PRN PRN Reason: Pain, Mild 1-3,fever,headache Calcium Carbonate (Calcium Carbonate 750 Mg Tab.Chew) 750 mg PO Q4H PRN PRN Reason: Heartburn Colchicine (Colchicine 0.6 Mg Tablet) 0.6 mg PO DAILY [facility] Last Admin: 05/08/25 14:18 Dose: 0.6 mg Enoxaparin Sodium (Enoxaparin Sodium 100 Mg/Ml Syringe) 90 mg SUBCUT BID [facility] Last Admin: 05/08/25 08:43 Dose: 90 mg Escitalopram Oxalate (Escitalopram Oxalate 10 Mg Tablet) 10 mg PO DAILY [facility] Famotidine (Famotidine 20 Mg Tablet) 20 mg PO DAILY [facility] Last Admin: 05/08/25 14:16 Dose: 20 mg Folic Acid (Folic Acid 1 Mg Tablet) 1 mg PO DAILY [facility] Last Admin: 05/08/25 08:43 Dose: 1 mg Gabapentin (Gabapentin 600 Mg Tablet) 600 mg PO TID [facility] Last Admin: 05/08/25 14:16 Dose: 600 mg Hydromorphone HCl (Hydromorphone Hcl 0.5 Mg/0.5 Ml Syringe) 0.5 mg IVPUSH Q3H PRN; Protocol PRN Reason: Pain, Severe (Pain Scale 7-10) Last Admin: 05/08/25 13:11 Dose: 0.5 mg Thiamine HCl 100 mg/ Sodium (Chloride) 101 mls @ 202 mls/hr IV DAILY [facility] Last Infusion: 05/08/25 09:20 Dose: Infused Magnesium Hydroxide (Milk Of Magnesia 30 Ml Oral.Susp) 30 ml PO DAILY PRN PRN Reason: Constipation Last Admin: 05/08/25 07:46 Dose: 30 ml Melatonin (Melatonin 3 Mg Tablet) 6 mg PO BEDTIME PRN PRN Reason: Insomnia Melatonin (Melatonin 3 Mg Tablet) 6 mg PO BEDTIME PRN PRN Reason: Sleep Multivitamins/Vitamin C (Multivitamin Tablet) 1 tab PO DAILY [facility] Last Admin: 05/08/25 08:43 Dose: 1 tab Omeprazole (Omeprazole 20 Mg Capsule.Dr) 20 mg PO BID@0630,1630 [facility] Pantoprazole Sodium (Pantoprazole Sodium 40 Mg/10 Ml Vial) 40 mg IVPUSH DAILY@0630 [facility] Last Admin: 05/08/25 05:51 Dose: 40 mg Pharmacy Consult (Consult Rx Etoh Phenob Im/Po) 1 each MISCELLANE ONCE PRN; Protocol PRN Reason: Consult order Phenobarbital (Phenobarbital 15 Mg Tablet) 45 mg PO BID [facility]; Protocol Stop: 05/09/25 21:01 Last Admin: 05/08/25 13:11 Dose: 45 mg Phenobarbital (Phenobarbital 15 Mg Tablet) 15 mg PO BID [facility]; Protocol Stop: 05/11/25 21:01 Phenobarbital (Phenobarbital 15 Mg Tablet) 15 mg PO DAILY [facility]; Protocol Stop: 05/13/25 09:01 Prednisone (Prednisone 20 Mg Tablet) 20 mg PO BID [facility] Last Admin: 05/08/25 14:17 Dose: 20 mg Prochlorperazine Edisylate (Prochlorperazine Edisylate 10 Mg/2 Ml Vial) 5 mg IVPUSH Q6H PRN PRN Reason: Nausea and Vomiting Sodium Chloride (0.9 % Sodium Chloride Flush 3 Ml Syringe) 3 ml IVFLUSH QSHIFT [facility] Last Admin: 05/08/25 07:49 Dose: Not Given Sucralfate (Sucralfate 1 Gm Tablet) 2 gm PO QIDWMHS [facility] Trazodone HCl (Trazodone Hcl 50 Mg Tablet) 50 mg PO BEDTIME [facility] Allergies Allergies Allergy/AdvReac Type Severity Reaction Status Date / Time No Known Allergies Allergy Verified 05/07/25 16:23 Assessment & Plan Assessment & Plan (1) Alcohol use disorder, severe, dependence: Status: Acute Code(s): F10.20 - Alcohol dependence, uncomplicated Assessment and Plan: * phenobarbital taper in place--withdrawal sx managed * continued PO thiamine and folic acid * restart Naltrexone 50mg QD * geriatric social worker to follow up and discuss recovery supports Total time managing care of this patient today __35__ minutes. PMFSH Past Medical History Medical History Dysphagia, pharyngoesophageal phase Pericarditis Pericardial effusion Alcohol use disorder, moderate, dependence MDD (major depressive disorder), recurrent episode, moderate Nausea with vomiting Alcohol use disorder Anxiety and depression History of seizure due to alcohol withdrawal ETOH abuse Family History Family History Other Diabetes Surgical History Surgical History History of surgery H/O endoscopy Social History Social History Household Members: Family Housing: House Do you presently have visiting nurse or other home services: No Alcohol intake: current Alcohol intake frequency: 0-2 drinks per day Alcohol type: beer and hard liquor Patient Tobacco Use Status: Former Tobacco user Tobacco use type: Cigarette Smoked in Last 30 Days: No e-Cigarette/Vaping Use: Never Used Second Hand Smoke Exposure: No Use of substances other than those prescribed or required for medical reasons: No Substance Use Type: Marijuana Advance Directives: Yes Advance Directives on File: Yes Advance Directives Date on File: 11/07/22 Do you have a plan to hurt others: No Plan Nutrition Risks: No Nutritional Risk service: No Current occupational status: employed
--- NOTE | 2025-05-08 16:07 | PM.DS ---
DS: Providers Provider Date of Service: 05/08/25 Date of admission: 05/07/25 23:23 Date of discharge: 05/08/25 Primary care physician: Unknown Physician Consults: 05/08/25 00:10 Consult to Cardiology Routine Consulting Provider: [facility] – [place] [facility] Reason for consultation: chest pain Has provider been notified: No 05/08/25 00:24 Addiction Medicine Provider Routine Consulting Provider: Addiction Covering Reason for consultation: Alcohol abuse Has provider been notified: No 05/08/25 08:23 Consult to Vascular Surgery Routine Consulting Provider: [facility] – [place] [facility] Reason for consultation: Prospect emboli, right sided heart strain Has provider been notified: No Attending physician on discharge: Adam Velazquez Discharging clinician: Adam Velazquez DS: Diagnosis Discharge Diagnosis (1) Alcohol use disorder, severe, dependence: Status: Acute DS: Summary Hospital Course Hospital Course: HPI:34 years old man with past medical history significant for multiple hospitalizations due to alcohol withdrawal and intoxication, chronic pericarditis, small pulmonary embolism noncompliant with Eliquis and ongoing alcohol abuse who presents to the emergency department complaining of left-sided chest pain without radiation that started 2 days ago. The pain increases with deep inspiration. He also reports having a little bit of shortness on breath. He denied headache, abdominal pain, nausea, vomiting or diarrhea. He was recently receiving detox in [facility] and has not been taking his naltrexone. He actually said that the only medications he has been taking his prednisone and colchicine. He said that he continue to drink alcohol every day and his last alcoholic drink was today. Per chart review, TTE December 2024 -normal LV function, abnormal septal motion with accessory respiratory change and no evidence of pericardial effusion. In the ED, he was found to have stable vital signs. Blood workup showed WBC count of 5.5, hemoglobin 12.6 and platelets 324. INR is 1.0. D-dimer is 577. There is hypernatremia 147 without other electrolyte imbalances. BUN is 4 and creatinine 0.63. LFT remarkable for elevated transaminases with normal bilirubin and alk-phos. Troponin is < 2.7 and albumin is normal. ETOH level is 303. Chest CTA today showed small bilateral posterior lower lobe emboli, borderline right heart enlargement question of right heart strain. ECG showed sinus tachycardia. ED tx: Droperidol 1.25 mg IV, morphine 4 mg IV, Valium 10 mg IV, Lovenox 90 mg subcut, NS 1 L bolus. Hospital course: 34 y/o man with a PMHx significant alcohol withdrawal and intoxication, chronic pericarditis, small pulmonary embolism noncompliant with Eliquis diagnosed at [facility] (March 2025) and ongoing alcohol abuse: Patient came to the hospital because of chest tightness, CTA shows bilateral small lower lobe emboli,? Question of right heart strain-patient was started on Lovenox, patient is noncompliance to Eliquis. Patient is not short of breath or hypoxic. Chest tightness somewhat improving, echo :The left ventricular systolic function is normal. Thecalculated ejection fraction is 59% by biplane method. No obvious valvular pathology seen on this study. For alcohol withdrawal patient was started on phenobarb protocol. Patient said he has had some family emergency and want to leave against medical advice-risk of leaving against medical advice explained to him in detail including alcohol withdrawal/possible seizure also, also worsening of respiratory status, chest pain-patient understand the risk of leaving against medical advice and worsening cardiac versus respiratory status versus alcohol withdrawal risks including . Still wants to leave against medical advice. He is alert oriented x3. Staff Julienne Isadora was present during conversation. In addition patient was told to go to nearest emergency room to get medical care as soon as possible. Also compliance to Eliquis advised in detail as well as advised to strongly abstain from alcohol use. Eliquis changed to 10 mg p.o. b.i.d. for 1 week and then switched to 5 mg p.o. b.i.d(just in case he does not go to any er to seek help). Above management discussed with the patient in detail length, assessment and plan coordination time spent 45 minute. All questions answered. Time Attestation Total time managing care of this patient today: 45 mintues. Discharge Coordination Time (in mins): 45 min Quality: Safe Use of Opioids Does Pt have an Active Cancer Diagnosis on the Problem List?: No Quality: Stroke Does the patient have a stroke diagnosis?: No Physical Exam Exam: Exam: Patient refused, asking for his IV line taken out. Vital Signs: Vital Signs: Last Vital Signs Temp 98.3 F 05/08/25 07:57 Pulse 81 05/08/25 13:15 Resp 15 05/08/25 13:15 BP 132/94 H 05/08/25 13:15 Pulse Ox 95 05/08/25 13:15 O2 Del Method Room Air 05/08/25 13:15 BMI result Body Mass Index 29.0 DS: Data Data Completed and Pending Completed studies during hospitalization [Text1]: Procedures Detoxification Services for Substance Abuse Treatment (04/02/25) Excision of Stomach, Pylorus, Via Natural or Artificial Opening Endoscopic, Diagnostic (03/03/25) Extraction of Esophagus, Via Natural or Artificial Opening Endoscopic, Diagnostic (03/03/25) Labs on day of discharge: Laboratory Results - last 24 hr 05/07/25 05/07/25 05/08/25 17:28 17:29 04:08 WBC 5.8 13.2 H RBC 4.44 L 3.99 L Hgb 12.6 L 11.4 L Hct 38.2 L 34.1 L MCV 86.0 85.5 MCH 28.4 28.6 MCHC 33.0 33.4 RDW 14.3 14.6 Plt Count 324 D 236 D MPV 8.2 L 10.0 Immature Gran % (Auto) 0.5 H 0.4 Neut % (Auto) 88.6 H 71.7 Lymph % (Auto) 8.8 L 19.2 L [place] % (Auto) 1.9 L 8.4 Eos % (Auto) 0.0 0.1 Baso % (Auto) 0.2 0.2 Lymph # (Auto) 0.5 L 2.5 [place] # (Auto) 0.1 1.1 Eos # (Auto) 0.0 0.0 Baso # (Auto) 0.0 0.0 Abs Immat Gran (auto) 0.03 0.05 H Absolute Neuts (auto) 5.1 9.5 H Absolute Nucleated RBC 0.000 0.000 Nucleated RBC % (auto) 0.0 0.0 Smear Tech's Comments VERIFIED ESR 2 PT 11.7 INR 1.0 D-Dimer High Sensitivty 577 Sodium 147 H 142 Potassium 3.3 3.2 L Chloride 107 107 Carbon Dioxide 27 23 Anion Gap 16 15 BUN 4 L 5 L Creatinine 0.63 0.60 Estim Creat Clear Calc 189.9 199.4 Estimated GFR > 60 > 60 Random Glucose 146 H 69 Calcium 8.2 L 7.9 L Magnesium 2.4 1.8 Total Bilirubin 0.2 0.4 Direct Bilirubin < 0.2 AST 92 H 76 H ALT 168 H 129 H Alkaline Phosphatase 90 80 Troponin I High Sens < 2.7 < 2.7 Total Protein 6.6 5.8 L Albumin 4.3 3.5 Urine Color Urine Appearance Urine pH Ur Specific [place] Urine Protein Urine Glucose (UA) Urine Ketones Urine Blood Urine Nitrite Ur Leukocyte Esterase Urine Opiates Screen Ur Buprenorphine Scrn Ur Oxycodone Screen Urine Methadone Screen Urine Fentanyl Screen Ur Barbiturates Screen Ur Phencyclidine Scrn Ur Amphetamines Screen U Benzodiazepines Scrn Urine Cocaine Screen U Marijuana (THC) Screen Ethyl Alcohol 303 H* 05/08/25 05:55 WBC RBC Hgb Hct MCV MCH MCHC RDW Plt Count MPV Immature Gran % (Auto) Neut % (Auto) Lymph % (Auto) [place] % (Auto) Eos % (Auto) Baso % (Auto) Lymph # (Auto) [place] # (Auto) Eos # (Auto) Baso # (Auto) Abs Immat Gran (auto) Absolute Neuts (auto) Absolute Nucleated RBC Nucleated RBC % (auto) Smear Tech's Comments ESR PT INR D-Dimer High Sensitivty Sodium Potassium Chloride Carbon Dioxide Anion Gap BUN Creatinine Estim Creat Clear Calc Estimated GFR Random Glucose Calcium Magnesium Total Bilirubin Direct Bilirubin AST ALT Alkaline Phosphatase Troponin I High Sens Total Protein Albumin Urine Color Yellow Urine Appearance Clear Urine pH 8.5 Ur Specific [place] 1.025 Urine Protein Negative Urine Glucose (UA) Negative Urine Ketones Negative Urine Blood Negative Urine Nitrite Negative Ur Leukocyte Esterase Negative Urine Opiates Screen POSITIVE H Ur Buprenorphine Scrn Not Detected Ur Oxycodone Screen Not Detected Urine Methadone Screen Not Detected Urine Fentanyl Screen Not Detected Ur Barbiturates Screen POSITIVE H Ur Phencyclidine Scrn Not Detected Ur Amphetamines Screen Not Detected U Benzodiazepines Scrn Not Detected Urine Cocaine Screen Not Detected U Marijuana (THC) Screen Not Detected Ethyl Alcohol Imaging Chest x-ray: My impression: Cta: Small bilateral posterior lower lobe emboli Borderline right heart enlargement, question right heart strain echo: Conclusions: - The left ventricular systolic function is normal. The calculated ejection fraction is 59% by biplane method. - No obvious valvular pathology seen on this study. Findings Procedure Information Contrast agent, definity, is being given per protocol without apparent complications. Left Ventricle Normal left ventricular cavity size. There is normal left ventricular wall thickness. The left ventricular systolic function is normal. The calculated ejection fraction is 59% by biplane method. There is no evidence of regional wall motion abnormalities. Diastolic function is normal for age. Right Ventricle Mildly increased right ventricular cavity size. There is normal right ventricular systolic function. Atria Both atria are normal in size. Aortic Valve There is a normal trileaflet aortic valve. There is no aortic valve stenosis. There is no aortic valve regurgitation. Mitral Valve The mitral valve appears normal. There is no mitral valve regurgitation. There is no mitral valve stenosis. Pulmonic Valve The pulmonic valve is likely normal. Tricuspid Valve There is no tricuspid valve regurgitation. Tricuspid regurgitation envelope is inadequate for calculation of right ventricular systolic pressure. Great Vessels The asc aorta is normal in size. Venous The inferior vena cava is normal in size and collapses greater than 50% with inspiration. Pericardium/Pleural There is no evidence of pericardial effusion. Prior Study Comparison No significant change compared to prior study dated: 12/28/2024. Recommendations, Care & Conclusions No obvious valvular pathology seen on this study. Discharge Plan Discharge Anticipated Discharge Date/Time: 05/08/25 15:58 Patient Disposition: Left Against Medical Advice Discharge Diagnosis: pulmonary embolism,chest pain Referrals: Physician,Unknown J [Primary Care Provider, Medical] - 1 Week Discharge Medications: Continued gabapentin 600 mg tablet 600 mg PO TID trazodone 50 mg tablet 50 mg PO BEDTIME prednisone 20 mg tablet 20 mg PO BID citalopram 20 mg tablet 20 mg PO DAILY famotidine 20 mg tablet 20 mg PO DAILY pantoprazole 40 mg tablet,delayed release (DR/EC) 40 mg PO BID@0630,1630 colchicine 0.6 mg tablet 0.6 mg PO DAILY sucralfate 1 gram tablet 2 g PO QIDWMHS melatonin 5 mg Tablet 5 mg PO BEDTIME PRN (Reason: Sleep) Changed Eliquis 5 mg tablet 10 mg PO BID Qty: 90 0RF Rx Instructions: take eliquis 10 mg po bid for 1 week (until 05/14/25),then switch to eliquis 5 mg po bid on 05/15/25. Discharge Orders: Discharge Order (Routine); Ordered 05/08/25 Ordered By: Adam Velazquez Diet: Advance to usual diet Activity on Discharge: As tolerated Stand Alone Forms: Patient Portal Discharge page, Against Medical Advice, Work/School Release Print Language: Croatian Care Plan Goals: Left AMA Health Concerns: Left AMA Plan of Treatment: Left AMA Assessment: Left AMA
--- NOTE | 2025-05-08 16:10 | MHC.CM.PN ---
Patient has left AMA.
--- NOTE | 2025-05-08 16:11 | PC.NURSE ---
Pt stated he had a family emergency and had to leave. Spoke with admitting MD. Pt signed out AMA
== END 2025-05-08 16:11 | disposition left against medical advice (07) | DRG 134 ==
LOC: HO.ED 23:17 → HO.EDOVER 23:28
PROVIDERS: Admitting Provider Internal Medicine; Emergency Provider Emergency Medicine; PCP Student in an Organized Health Care Education/Training Program; Visit Provider Internal Medicine
DX: I26.09 Other pulmonary embolism with acute cor pulmonale (principal); E87.0 Hyperosmolality and hypernatremia; I31.9 Disease of pericardium, unspecified; Y90.8 Blood alcohol level of 240 mg/100 ml or more; F10.229 Alcohol dependence with intoxication, unspecified; F10.239 Alcohol dependence with withdrawal, unspecified; F32.A Depression, unspecified; Z87.891 Personal history of nicotine dependence; Z79.01 Long term (current) use of anticoagulants; Z79.52 Long term (current) use of systemic steroids; Z79.899 Other long term (current) drug therapy
CPT/HCPCS: 36415; 71275; 80048; 80053; 80076; 80307; 81003; 83735; 84484; 85025; 85379; 85610; 85652; 93005; 93306; 99285; J1171; J1650; J1790; J2270; J2470; J2560; J3360; J3411; Q9957; Q9967

== ENCOUNTER → 2025-05-07 16:20 | Outpatient (BNV) | payer OTHER, SELFPAY | PROVIDERS: Admitting Provider Internal Medicine; Emergency Provider Emergency Medicine; Visit Provider Internal Medicine | DX: R00.0 Tachycardia, unspecified (principal) | CPT/HCPCS: 93010 ==

== ENCOUNTER → 2025-05-07 20:40 | Outpatient (BNV) | payer OTHER, SELFPAY | PROVIDERS: Emergency Provider Emergency Medicine; Visit Provider Radiology Diagnostic Radiology | DX: I26.99 Other pulmonary embolism without acute cor pulmonale (principal) | CPT/HCPCS: 71275 ==

== ENCOUNTER 2025-05-07 23:23 | Outpatient (BNV) | payer OTHER, SELFPAY | END 2025-05-08 07:00 | PROVIDERS: Admitting Provider Internal Medicine; Emergency Provider Emergency Medicine; Visit Provider Internal Medicine | DX: R07.89 Other chest pain (principal) | CPT/HCPCS: 93306 ==

== ENCOUNTER → 2025-05-07 23:23 | Outpatient (BNV) | payer OTHER, SELFPAY | PROVIDERS: Admitting Provider Internal Medicine; Emergency Provider Emergency Medicine; Visit Provider Surgery Vascular Surgery | DX: I26.99 Other pulmonary embolism without acute cor pulmonale (principal) | CPT/HCPCS: 99222 ==

== ENCOUNTER → 2025-05-07 23:23 | Outpatient (BNV) | payer OTHER, SELFPAY | PROVIDERS: Admitting Provider Internal Medicine; Emergency Provider Emergency Medicine; Visit Provider Nurse Practitioner Psychiatric/Mental Health | DX: F10.20 Alcohol dependence, uncomplicated (principal) | CPT/HCPCS: 99283 ==

== ENCOUNTER → 2025-05-07 23:23 | Outpatient (BNV) | payer OTHER, SELFPAY | PROVIDERS: Admitting Provider Internal Medicine; Emergency Provider Emergency Medicine; Visit Provider Internal Medicine | DX: I26.99 Other pulmonary embolism without acute cor pulmonale (principal); F10.920 Alcohol use, unspecified with intoxication, uncomplicated; F10.20 Alcohol dependence, uncomplicated | CPT/HCPCS: 99223; 99239 ==

== ENCOUNTER 2025-05-13 16:43 | Emergency (ER) | payer OTHER, SELFPAY ==
--- NOTE | ~2025-05-13 | XR_ITS ---
CLINICAL HISTORY: CP Single view of the chest. COMPARISON: XR chest dated 05/05/25 at 23:37 EDT FINDINGS: Normal heart and mediastinal contours. Low lung volumes. No consolidation. No pleural effusion or pneumothorax. No acute fracture. IMPRESSION: 1. Low lung volumes. No consolidation. This document has been electronically signed by: Joey Rojas MD on 05/13/2025 17:56:05
--- NOTE | 2025-05-13 16:48 | ECG_ITS ---
Test Reason : CHEST PAIN Blood Pressure : */* mmHG Vent. Rate : 113 BPM Atrial Rate : 113 BPM P-R Int : 148 ms QRS Dur : 88 ms QT Int : 324 ms P-R-T Axes : 41 22 14 degrees QTcB Int : 444 ms Sinus tachycardia Nonspecific ST abnormality Abnormal ECG When compared with ECG of 07-May-2025 19:37, No significant change was found Referred By: Generic ED Physician Electronically Signed By: CHAO RUIZ MD
[2025-05-13 16:49] VITALS: BP 170/100; PULSE 130; O2SAT 97
[2025-05-13 16:53] VITALS: BP 133/102; PULSE 114; RESP 15; O2SAT 94; BMI 29.2
[2025-05-13 17:00] VITALS: BP 133/102; PULSE 113; PULSE 114; RESP 15; TEMP 36.8; O2SAT 94
--- NOTE | 2025-05-13 17:05 | PC.NURSE ---
34 F presents to ED with CP after coming from work at [employer], had a few beers per patient. C/o center to left chest pain move to left arm 10/10 pain and SOB. RR even and unlabored, pt able to speak in full and complete sentences. Pt appears to be intoxicated from alcohol. A+Ox4, anxious, cooperative. Hx PUD and endocarditis. Pt is ambulatory. Pt sts he normally doesn't drink but drank today. Pt sts he just started smoking cigarettes again.
--- NOTE | 2025-05-13 17:18 | PC.NURSE ---
Pt sts he is refusing blood draw until he recieves pain medications.
--- NOTE | 2025-05-13 17:49 | PC.NURSE ---
Pt requested tylenol for pain. I spoke with the doctor and he gave me the ok to order it. When I went to administer the tylenol, the patient sts That's all you have to give me for pain? That's not going to do shit Pt refused meds. Pt threatened to walk out. Provider aware and will be in to see him shortly. Pt notified provider will be coming in to see him.
--- NOTE | 2025-05-13 18:10 | ED.CHESTPAIN ---
HPI - Chest Pain General Chief Complaint: Chest Pain Stated Complaint: work midsternal CP, Paricardisit peptic ulcer ETOH Time Seen by Provider: 05/13/25 16:45 Source: patient, RN notes reviewed and old records reviewed Mode of arrival: EMS Limitations: other (alcohol intoxication) History of Present Illness ED Provider: [place] HPI narrative: 34-year-old male past medical history significant for alcohol abuse, pericarditis, pulmonary embolism, gastritis, presenting for evaluation of chest pain. The patient reports that he was at work when he was lifting heavy. He reports about 4 hours prior to arrival he developed midsternal chest pain. He describes it as pressure. He states it feels like someone is sitting on my chest. ? Your reports that his pain is worse with movement, especially lying backwards. He believes he has been over exerting himself. He states that he has been using a bicycle to get around instead of driving like he normally does No other complaints or concerns at this time The patient reports in his last drink of alcohol was about 4 hours prior to arrival The patient was seen here 6 days ago for chest pain, he is currently on Eliquis for small bilateral PE Related Data Home Medications ?Medication ?Instructions ?Recorded ?Confirmed apixaban 5 mg tablet (Eliquis) 5 mg PO BID 05/08/25 05/08/25 citalopram 20 mg tablet 20 mg PO DAILY 05/08/25 05/08/25 colchicine 0.6 mg tablet 0.6 mg PO DAILY 05/08/25 05/08/25 famotidine 20 mg tablet 20 mg PO DAILY 05/08/25 05/08/25 gabapentin 600 mg tablet 600 mg PO TID 05/08/25 05/08/25 melatonin 5 mg tablet 5 mg PO BEDTIME PRN Sleep 05/08/25 05/08/25 pantoprazole 40 mg tablet,delayed 40 mg PO BID@0630,1630 05/08/25 05/08/25 release prednisone 20 mg tablet 20 mg PO BID 05/08/25 05/08/25 sucralfate 1 gram tablet 2 g PO QIDWMHS 05/08/25 05/08/25 trazodone 50 mg tablet 50 mg PO BEDTIME 05/08/25 05/08/25 Allergies Allergy/AdvReac Type Severity Reaction Status Date / Time No Known Allergies Allergy Verified 05/13/25 16:56 Review of Systems Constitutional: Constitutional: Denies body ache(s), Denies fever(s) and Denies headache(s) ENT: Denies headache(s) Cardiovascular: Cardiovascular: Reports chest pain, Reports chest pain at rest, Reports chest pain with activity, Reports Epigastric Pain and Denies dyspnea on exertion Respiratory: Respiratory: Denies cough and Denies dyspnea on exertion Gastrointestinal: Gastrointestinal: Reports abdominal pain, Denies nausea and Denies vomiting Musculoskeletal: Musculoskeletal: Denies back pain Integumentary/Breasts: Skin/Breast: Denies rash Neurologic: Denies headache(s) [facility] Past Medical History Medical History Dysphagia, pharyngoesophageal phase Pericarditis Pericardial effusion Alcohol use disorder, moderate, dependence MDD (major depressive disorder), recurrent episode, moderate Nausea with vomiting Alcohol use disorder Anxiety and depression History of seizure due to alcohol withdrawal ETOH abuse Surgical History History of surgery H/O endoscopy Family History Family History Other Diabetes Social History Social History Household Members: Family Housing: House Do you presently have visiting nurse or other home services: No Alcohol intake: current Alcohol intake frequency: a few times a month Alcohol type: beer Patient Tobacco Use Status: Former Tobacco user Tobacco use type: Cigarette Smoked in Last 30 Days: No e-Cigarette/Vaping Use: Never Used Second Hand Smoke Exposure: No Use of substances other than those prescribed or required for medical reasons: No Substance Use Type: Marijuana Advance Directives: Yes Advance Directives on File: Yes Advance Directives Date on File: 11/07/22 Do you have a plan to hurt others: No Plan service: No Current occupational status: employed Physical Exam Vital Signs: Vital Signs: Last Vital Signs Temp 98.3 F 05/13/25 17:00 Pulse 114 H 05/13/25 17:00 Resp 15 05/13/25 17:00 BP 133/102 H 05/13/25 17:00 Pulse Ox 94 05/13/25 17:00 O2 Del Method Room Air 05/13/25 17:00 BMI result Body Mass Index 29.2 Const: General: healthy appearing, comfortable, no acute distress, alert and awake Nutritional Appearance: well nourished Orientation/consciousness: patient oriented x3 HEENT: Head: Yes normocephalic and Yes atraumatic Eyes: Eyelids: Yes eyelids normal Conjunctivae: conjunctivae normal Sclerae: sclerae normal Corneas: corneas normal Pupils: Equal, round and reactive pupils present EOM: EOMs intact bilaterally Neck: Neck: Yes full ROM Resp: Effort & Inspection: normal respiratory effort, able to speak in complete sentences and not labored GI: Palpation (GI): Tenderness to palpation present (GI) in the epigastrum, in the LLQ, in the RLQ, in the LUQ and in the RUQ and no guarding Skin: General skin exam: elasticity normal Neuro: General: patient oriented x3 Cranial nerves: Yes Equal, round and reactive pupils present and Yes Bilaterally intact EOM present Cognition (Neuro): normal cognition Course Reevaluation(s) Reevaluation #1: Unfortunately there was a delay in obtaining lab as the computer system in the entire hospital went down affecting the lab, picks this and EMR. While waiting for the patient's labs, the patient began aggravated and opted to leave against medical advice. I did review his troponin that was undetectable and given his pain started over 4 hours ago with a nonischemic EKG he rules out for ACS. He ambulated out of the department with a steady, even gait Time: 20:00 Medications Administered Discontinued Medications Generic Name Dose Route Start Last Admin Trade Name Ramírez PRN Reason Stop Dose Admin Acetaminophen 975 mg 05/13/25 17:39 05/13/25 17:51 Acetaminophen 325 Mg Tablet PO 05/13/25 17:40 Not Given ONCE ONE Morphine Sulfate 4 mg 05/13/25 17:58 05/13/25 18:05 Morphine Sulfate 4 Mg/Ml Cartridge IVPUSH 05/13/25 17:59 4 mg ONCE ONE Administration Protocol Ondansetron HCl 4 mg 05/13/25 17:58 05/13/25 18:05 Ondansetron Hcl 4 Mg/2 Ml Vial IVPUSH 05/13/25 17:59 4 mg ONCE ONE Administration Medical Decision Making Medical Decision Making MDM Narrative: 34-year-old male presents for evaluation of chest pain and epigastric pain. He has a broad differential including PE, gastritis, pericarditis, costochondritis, muscle strain, pneumothorax aside to be less likely. Plan for labs, EKG, chest x-ray. Differential Diagnosis Differential Diagnoses: The differential diagnosis associated with the presentation includes As above Lab Data 05/13/25 Unknown 05/13/25 17:15 Labs: Lab Results 05/13/25 05/13/25 05/13/25 Range/Units 17:15 19:15 Unknown WBC 11.6 H (4.8-10.8) X10*3/uL RBC 4.26 L (4.60-5.80) X10*6/uL Hgb 12.4 L (14.0-18.0) g/dl Hct 36.2 L (42.0-52.0) % MCV 85.0 (80.0-98.0) fL MCH 29.1 (27.0-33.0) pg MCHC 34.3 (31.0-36.0) g/dl RDW 16.8 H (11.0-16.0) % Plt Count 288 (160-400) X10*3/uL MPV 8.6 L (9.4-12.4) fL Immature Gran % (Auto) 0.5 H (0.0-0.4) % Neut % (Auto) 81.2 H (45-73) % Lymph % (Auto) 13.5 L (20-40) % [place] % (Auto) 4.6 (2-11) % Eos % (Auto) 0.0 (0-4) % Baso % (Auto) 0.2 (0-2) % Lymph # (Auto) 1.6 (1.2-4.9) X10*3/uL [place] # (Auto) 0.5 (0.1-1.2) X10*3/uL Eos # (Auto) 0.0 (0.0-0.4) X10*3/uL Baso # (Auto) 0.0 (0.0-0.2) X10*3/uL Abs Immat Gran (auto) 0.06 H (0.00-0.03) X10*3/uL Absolute Neuts (auto) 9.4 H (2.0-8.3) x10*3/uL Absolute Nucleated RBC 0.000 (0.0-0.012) X10*3/uL Nucleated RBC % (auto) 0.0 (0.0-0.2) /100WBC ESR 7 (0-15) MM/HR Sodium 146 H (135-145) mmol/L Potassium 3.3 (3.3-5.1) mmol/L Chloride 107 (96-108) mmol/L Carbon Dioxide 23 (22-29) mmol/L Anion Gap 19 (12-20) BUN 4 L (9-16) mg/dL Creatinine 0.67 (0.5-1.4) mg/dL Estim Creat Clear Calc 168.4 Estimated GFR > 60 Random Glucose 133 H (60-115) mg/dL Calcium 8.7 D (8.4-10.2) mg/dL Total Bilirubin 0.3 (0.0-1.0) mg/dL AST 36 (5-37) U/L ALT 55 H (0-40) U/L Alkaline Phosphatase 92 (39-117) U/L Total Creatine Kinase 98 (38-174) U/L Troponin I High Sens < 2.7 (<3.5-35.0) ng/L NT-Pro-B Natriuret Pep < 15.8 (<300) pg/mL Total Protein 7.3 (6.5-8.0) g/dL Albumin 4.5 (3.5-5.0) g/dL Lipase 80 H (8-78) U/L Ethyl Alcohol 384 H* mg/dL Independent Interpretation I performed an independent interpretation of an: EKG Interpretation: Sinus tachycardia with a rate of 113 beats minute. No significant change when compared to previous from 6 days ago on 05/07/2025 Radiology Impression Discussion of test interpretation with radiology: I have reviewed the radiologist's reading. Radiologist Impression: FINDINGS: Normal heart and mediastinal contours. Low lung volumes. No consolidation. No pleural effusion or pneumothorax. No acute fracture. IMPRESSION: 1. Low lung volumes. No consolidation. This document has been electronically signed by: Joey Rojas MD on 05/13/2025 17:56:05 Discharge Plan Discharge Clinical Impression: Chest pain, Acute alcohol intoxication Patient Disposition: Left Against Medical Advice Instructions: Abuse of Alcohol (ED) Prescriptions: No Action gabapentin 600 mg tablet 600 mg PO TID trazodone 50 mg tablet 50 mg PO BEDTIME prednisone 20 mg tablet 20 mg PO BID citalopram 20 mg tablet 20 mg PO DAILY famotidine 20 mg tablet 20 mg PO DAILY pantoprazole 40 mg tablet,delayed release (DR/EC) 40 mg PO BID@0630,1630 colchicine 0.6 mg tablet 0.6 mg PO DAILY Eliquis 5 mg tablet 5 mg PO BID sucralfate 1 gram tablet 2 g PO QIDWMHS melatonin 5 mg Tablet 5 mg PO BEDTIME PRN (Reason: Sleep) Stand Alone Forms: Against Medical Advice Print Language: Spanish
--- OUTSIDE RECORDS SUMMARY | 2025-05-13 18:59 | XMS_ITS | Encounter Summary ---
Author Organization [facility] Address [address] [place] [id number] Phone Care Team Providers Care Sales Force Developer Name Role Phone Noé Huynh CONFIGURATION MANAGEMENT CONSULTANT Primary Care Provider + [phone] Wali Long CONFIGURATION MANAGEMENT CONSULTANT Primary Care Provider + Reason for Referral [...] Expiration Date Visits Re quested Visits Authorized [id number] Closed 10/11/2021 10/11/2022 1 1 Encounter Details Date Type Department Care Team (Latest Contact Info) Description 10/11/2021 Transcribe Orders Virtual Department [address] [place] [address] Susana Rollins PA [address] [place] [address] Vomiting, intractability of vomiting not specified, presence [...] type documented in this encounter Care Teams Sales Force Developer Relationship Specialty Start Date End Date Noé Huynh NP [email or web address] PCP - General Family Medicine 09/17/19 Wali Long NP [address] [place] [address] [place] [id number] PCP - General Family Medicine 11/11/21 documented as of this encounter Additional Source Comments The information contained in this document represents components of the legal health record. It is not the complete legal health record.[facility]
--- OUTSIDE RECORDS SUMMARY | 2025-05-13 18:59 | XMS_ITS | Encounter Summary ---
Author Organization [facility] Address [address] [place] [id number] Phone Care Team Providers Care Personal Care Worker Name Role Phone Noé Huynh WASTE HAND Primary Care Provider [phone] Wali Long WASTE HAND Primary Care Provider + Encounter Details Date Type Department Care Team (Late st Contact Info) Description 09/30/2019 Procedure Pass [facility] Endoscopy Admitting Dept Virtual Department [address] [place] [address] Social History Tobacco Use Types Packs/Day Years [...] on filedocumented in this encounter Care Teams Personal Care Worker Relationship Specialty Start Date End Date Noé Huynh WASTE HAND [email or web address] PCP - General Family Medicine 09/17/19 Wali Long NP [address] [place] [address] PCP - General Family Medicine 11/11/21 documented as of this encounter Additional Source Comments The information contained in this document represents components of the legal health record. It is not the complete legal health record.[facility]
--- OUTSIDE RECORDS SUMMARY | 2025-05-13 18:59 | XMS_ITS | Clinical Summary ---
Author Organization [facility] Address [address] [address] Phone Care Team Providers Care Top Knitter Name Role Phone Wali Long STAFF NURSE MIDWIFE Primary Care Provider + Allergies Active Allergy [...] topic Medical Devices Not on file Insurance [facility] [employer] [facility] DIRECT HEALTH SAFETY NET PARTIAL Member Subscriber Plan / Payer (Ef fective 2021-Present) Name:Jack Burns Relation to Subscriber:Self Name:[place] Payer ID:Not on file Group ID:Not on file Type:Medicaid Address: [place] [id number] [employer] DIRECT [facility] NET PARTIAL [employer] DIRECT HEALTH SAFETY NET PARTIAL [employer] DIRECT [facility] NET PARTIAL [place] PUBLIC PLANS [employer] DIRECT [place] [address] [facility] [employer] DIRECT [facility] [place] [address] [facility] [employer] DIRECT HEALTH SAFETY NET PARTIAL [facility] [employer] DIRECT HEALTH SAFETY NET PARTIAL [facility] NET PARTIAL Care Teams Top Knitter Relationship Specialty Start Date End Date Wali Long NP [address] [facility] [address] [place] [address] PCP - General Family Medicine 11/11/21 Additional Source Comments The information contained in this document represents components of the legal health record. It is not the complete legal health record.[facility]
--- OUTSIDE RECORDS SUMMARY | 2025-05-13 18:59 | XMS_ITS | Encounter Summary ---
Author Organization [facility] Address [address] [place] [address] Phone Care Team Providers Care Surface Grinding Machine Hand Name Role Phone Noé Huynh RURAL ROUTE CARRIER Primary Care Provider [phone] Wali Long RURAL ROUTE CARRIER Primary Care Provider + Encounter Details Date Type Department Care Team (Late st Contact Info) Description 09/09/2021 Procedure Pass [facility] Endoscopy Admitting Dept Virtual Department [address] [place] [address] Social History Tobacco Use Types Packs/Day Years [...] on filedocumented in this encounter Care Teams Surface Grinding Machine Hand Relationship Specialty Start Date End Date Noé Huynh RURAL ROUTE CARRIER [email or web address] PCP - General Family Medicine 09/17/19 Wali Long NP [address] [facility] [address] PCP - General Family Medicine 11/11/21 documented as of this encounter Additional Source Comments The information contained in this document represents components of the legal health record. It is not the complete legal health record.[facility]
--- OUTSIDE RECORDS SUMMARY | 2025-05-13 18:59 | XMS_ITS | Clinical Summary ---
Author Organization [facility] Address [address] [place] [address] Care Team Providers Care Studio Technician Video Operator Name Role Phone Benny Lea Primary Care Provider [phone] Allergies No known active allergies Medications apixaban [...] had just gone through alcohol withdrawal at [facility] and was referred to a detox facility [...] had just gone through alcohol withdrawal at [facility] and was referred to a detox facility [...] had just gone through alcohol withdrawal at [facility] and was referred to a detox facility [...] voices. [place] from [facility] where he states that he [...] had just gone through alcohol withdrawal at [facility] and was referred to a detox facility [...] had just gone through alcohol withdrawal at [facility] and was referred to a detox facility [...] had just gone through alcohol withdrawal at [facility] and was referred to a detox facility [...] voices. [place] presenting [place] from [facility] where he states that he was [...] it was provoked or unprovoked. CT scan [facility] showing no evidence of pulmonary emboli. - Resumed Eliquis 5 mg BID 04/11 - Outpatient hematology follow up at [facility] Assessment & Plan (04/12/2025 8:28 AM EDT): Home meds: Eliquis 5 mg twice daily Patient was diagnosed with PE 04/03 and he was placed on Eliquis for this which he has been taking regularly. Unknown if it was provoked or unprovoked. CT scan [facility] showing no evidence of pulmonary emboli. - Resumed Eliquis 5 mg BID 04/11 - Outpatient hematology follow up at [facility] Assessment & Plan (04/11/2025 4:30 PM EDT): Home meds: Eliquis 5 mg twice daily Patient was diagnosed with PE 04/03 and he was placed on Eliquis for this which he has been taking regularly. Unknown if it was provoked or unprovoked. CT scan [facility] showing no evidence of pulmonary emboli. - Resumed Eliquis 5 mg BID 04/11 - Outpatient hematology follow up at [facility] Assessment & Plan (04/11/2025 1:32 AM EDT): [...] there were discussions for surgical intervention at [facility], but he was not able to [...] K>4, Mg>2 - Follow up with outpatient ladder operator at [facility] & Plan (04/12/2025 1:49 PM EDT): [...] there were discussions for surgical intervention at [facility], but he was not able to [...] K>4, Mg>2 - Follow up with outpatient ladder operator at [facility] (04/11/2025 4:30 PM EDT): Home: Colchicine 0.6 [...] there were discussions for surgical intervention at [facility], but he was not able to [...] K>4, Mg>2 - Follow up with outpatient ladder operator at [facility] Assessment & Plan (04/11/2025 1:32 AM EDT): [...] there were discussions for surgical intervention at [facility], but he was not able to [...] - 04/14/2025 12:39 PM [place] [address] Carlos Enrique Le MD Conicella, Albert, MD [...] complete this topic Procedures * Due to [place] state law, this organization might not be [...] Last 3 Months Results * Due to [place] state law, this organization might not be sharing negative HIV tests. * (ABNORMAL) CBC Auto Differential (04/14/2025 7:27 AM EDT) Only the most recent of4 resultswithin the time period is included. WBC 15.8(H) 3.8 - 10.8 10*3/uL 04/14/2025 9:02 AM EDT [facility] [employer] CLINICAL PATHOLOGY LABORATORY RBC 4.05(L) 4.20 - 5.80 10*6/uL 04/14/2025 9:02 AM EDT [facility] [employer] [facility] Hemoglobin 11.7(L) 13.2 - 17.1 g/dL 04/14/2025 9:02 AM EDT [employer] [employer] [employer] [facility] Hematocrit 35.6(L) 38.5 - 50.0 % 04/14/2025 9:02 AM EDT [facility] MCV 87.9 80.0 - 100.0 fL 04/14/2025 9:02 AM EDT [email or web address] [employer] [facility] LAB[facility] MCH 28.9 27.0 - 33.0 pg 04/14/2025 9:02 AM EDT [email or web address] [employer] [employer] [facility] MCHC 32.9 32.0 - 36.0 g/dL 04/14/2025 9:02 AM EDT [facility] [employer] [facility] RDW 14.2 11.0 - 15.0 % 04/14/2025 9:02 AM EDT [facility] [employer] [facility] Platelets 537(H) 140 - 400 10*3/uL 04/14/2025 9:02 AM EDT [facility] [employer] [facility] MPV 8.9 7.5 - 12.5 fL 04/14/2025 9:02 AM EDT [facility] [employer] [facility] Neutrophil % 70.5 % 04/14/2025 9:02 AM EDT [facility] [employer] [facility] Immature Grans % 0.5 0.0 - 0.9 % 04/14/2025 9:02 AM EDT [facility] [employer] Lymphocyte % 16.3 % 04/14/2025 9:02 AM EDT [employer] [facility] [employer] [employer] [facility] Monocyte % 11.9 % 04/14/2025 9:02 AM EDT [employer] [employer] [employer] [facility] Eosinophil % 0.5 % 04/14/2025 9:02 AM EDT [employer] [employer] Basophil % 0.3 % 04/14/2025 9:02 AM EDT [facility] [employer] Neutrophil # 11.16(H) 1.50 - 7.80 10*3/uL 04/14/2025 9:02 AM EDT [employer] CL[facility]OLOG[facility] LAB[facility]ATORY Immature Grans # 0.08(H) <=0.03 10*3/uL 04/14/2025 9:02 AM EDT [facility] LAB[facility] Lymphocyte # 2.60 0.85 - 3.90 10*3/uL 04/14/2025 9:02 AM EDT [facility] Monocyte # 1.90(H) 0.20 - 0.95 10*3/uL 04/14/2025 9:02 AM EDT [employer] [facility] LAB[facility] Eosinophil # 0.10 0.02 - 0.50 10*3/uL 04/14/2025 9:02 AM EDT [employer] [facility] Basophil # 0.10 0.00 - 0.20 10*3/uL 04/14/2025 9:02 AM EDT [employer] [facility] nRBC % 0.0 /100 WBCs 04/14/2025 9:02 AM EDT [employer] [facility] nRBC # <0.01 <0.01 10*3/uL 04/14/2025 9:02 AM EDT [employer] [facility] Blood Structure of peripheral vein / Unknown Venipuncture / Unknown 04/14/2025 7:27 AM EDT 04/14/2025 8:50 AM EDT us Elio Mijares DO LAB BLOOD ORDERABLES Final Re sult [facility] [email or web address] CLINICAL PATHOLOGY LABORATORY [address] [place] [address], * Phosphorus (04/14/2025 7:27 AM EDT) Only the most recent of3 resultswithin the time period is included. Phosphorus 3.1 2.5 - 4.5 mg/dL 04/14/2025 9:37 AM EDT [facility] LAB[facility] Blood Structure of peripheral vein / Unknown Venipuncture / Unknown 04/14/2025 7:27 AM EDT 04/14/2025 8:41 AM EDT Elio Mijares DO LAB BLOOD ORDERABLES Final Re sult Performing Organization Address City/[facility]/ZIP Co de Phone Number [facility] CL[facility] LABORATORY [address] [place] [address], * Magnesium (04/14/2025 7:27 AM EDT) Only the most recent of5 resultswithin the time period is included. MG 2.0 1.6 - 2.4 mg/dL 04/14/2025 9:37 AM EDT [facility] Blood Structure of peripheral vein / Unknown Venipuncture / Unknown 04/14/2025 7:27 AM EDT 04/14/2025 8:41 AM EDT Elio AlexanderJulienne Wilsonel DO LAB BLOOD ORDERABLES Final Re sult Performing Organization Address [facility] de Phone Number [employer] CL[facility]ICAL PATHOLOGY LABORATORY [address] [place] [address] * (ABNORMAL) Comprehensive Metabolic Panel (04/14/2025 7:27 AM EDT) Only the most recent of3 resultswithin the time period is included. NA 141 135 - 145 mmol/L 04/14/2025 9:38 AM EDT [facility] K 3.8 3.5 - 5.3 mmol/L 04/14/2025 9:38 AM EDT [facility] Cl 105 98 - 107 mmol/L 04/14/2025 9:38 AM EDT [facility] CO2 22 22 - 32 mmol/L 04/14/2025 9:38 AM EDT [facility] Anion Gap 14 5 - 15 04/14/2025 9:38 AM EDT [facility] Glucose 79 65 - 99 mg/dL 04/14/2025 9:38 AM EDT [facility] Creatinine 0.59(L) 0.60 - 1.30 mg/dL 04/14/2025 9:38 AM EDT [facility] Calcium 9.0 8.6 - 10.5 mg/dL 04/14/2025 9:38 AM EDT [facility] Total Protein 6.4 6.0 - 8.0 g/dL 04/14/2025 9:38 AM EDT [facility] Albumin 3.4(L) 3.5 - 5.2 g/dL 04/14/2025 9:38 AM EDT [facility] Bilirubin, Total <0.2(L) 0.2 - 1.2 mg/dL 04/14/2025 9:38 AM EDT [facility] Alkaline Phosphatase 64 35 - 129 U/L 04/14/2025 9:38 AM EDT [facility] AST 20 10 - 40 U/L 04/14/2025 9:38 AM EDT [facility] ALT 15 10 - 40 U/L 04/14/2025 9:38 AM ED [facility] BUN 5(L) 7 - 23 mg/dL 04/14/2025 9:38 AM EDT [facility] eGFR >90 >=60 mL/min/1 .73m2 04/14/2025 9:38 AM EDT [facility] Comment:The estimated glomer ular [...] - 4.2 g/dL 04/14/2025 9:38 AM EDT [facility] A/G Ratio 1.1(L) 1.5 - 3.0 04/14/2025 9:38 AM EDT [facility] Blood Structure of peripheral vein / Unknown Venipuncture / Unknown 04/14/2025 7:27 AM EDT 04/14/2025 8:41 AM EDT us Elio Mijares DO LAB BLOOD ORDERABLES Final Re sult [facility] [address] [place] [address], * ECG 12 lead (04/14/2025 4:23 AM EDT) Only the most recent of4 resultswithin the time period is included. Ventricular Rate EKG 83 BPM MUSE EKG Atrial Rate 83 BPM MUSE EKG CA Interval 168 ms MUSE EKG QRS Interval 78 ms MUSE EKG QT Interval 368 ms MUSE EKG QTC Interval 432 ms MUSE EKG P [place] 34 degrees MUSE EKG R [place] 20 degrees MUSE EKG T Wave [place] 4 degrees MUSE EKG 04/14/2025 4:23 AM [...] Calderon (297) on 04/17/2025 9:02:57 AM us Hearing Aid Assistant Erlinda RODRÍGUEZ ECG ORDERABLES Final Resu lt [...] - 10.8 10*3/uL 04/11/2025 8:50 AM EDT [facility] RBC 4.20 4.20 - 5.80 10*6/uL 04/11/2025 8:50 AM EDT [facility] Hemoglobin 12.4(L) 13.2 - 17.1 g/dL 04/11/2025 8:50 AM EDT [facility] Hematocrit 38.9 38.5 - 50.0 % 04/11/2025 8:50 AM EDT [facility] [employer] CL[facility]ICAL PATHOLOGY LABORATORY MCV 92.6 80.0 - 100.0 fL 04/11/2025 8:50 AM EDT [facility] [employer] [facility]OLOG[facility] LAB[facility]ATORY MCH 29.5 27.0 - 33.0 pg 04/11/2025 8:50 AM EDT [facility] [employer] [facility] LAB[facility] MCHC 31.9(L) 32.0 - 36.0 g/dL 04/11/2025 8:50 AM EDT [employer] [facility] LAB[facility] RDW 14.7 11.0 - 15.0 % 04/11/2025 8:50 AM EDT [facility] Platelets 380 140 - 400 10*3/uL 04/11/2025 8:50 AM EDT [facility] MPV 8.7 7.5 - 12.5 fL 04/11/2025 8:50 AM EDT [employer] [facility] LAB[facility] Blood Structure of peripheral vein / Unknown Venipuncture / Unknown 04/11/2025 8:16 AM EDT 04/11/2025 8:32 AM EDT Sravan Alegria MD LAB BLOOD ORDERABLES Final Result [facility] SYSTEM[facility]ision[email or web address] LABORATORY [address] [place] [address], * (ABNORMAL) Hepatic function panel (04/11/2025 8:16 AM EDT) Only the most recent of2 resultswithin the time period is included. Total Protein 6.4 6.0 - 8.0 g/dL 04/11/2025 10:58 AM EDT [facility] Albumin 3.5 3.5 - 5.2 g/dL 04/11/2025 10:58 AM EDT [facility] Globulin, Total 2.9 2.1 - 4.2 g/dL 04/11/2025 10:58 AM EDT [facility] [email or web address] [facility] LAB[facility] Bilirubin, Total 0.2 0.2 - 1.2 mg/dL 04/11/2025 10:58 AM EDT [facility] [email or web address] [facility] PATHOLOG[facility] LABOR[facility]ORY Bilirubin, Direct <0.1 <=0.4 mg/dL 04/11/2025 10:58 AM EDT [email or web address] [facility]OLOG[facility] LABORATORY Alkaline Phosphatase 72 35 - 129 U/L 04/11/2025 10:58 AM EDT [facility] [email or web address] [facility] LAB[facility] AST 24 10 - 40 U/L 04/11/2025 10:58 AM EDT [facility] SYSTEMChina [facility] FinanceKING[facility] [email or web address] [facility] LAB[facility] ALT 17 10 - 40 U/L 04/11/2025 10:58 AM EDT [email or web address] [facility]OLOG[facility] LAB[facility]ATORY Bilirubin, Indirect 04/11/2025 10:58 AM EDT [facility] [email or web address] [facility]OLOG[facility] LAB[facility] Comment:Unable to calculate A/G Ratio 1.2(L) 1.5 - 3.0 04/11/2025 10:58 AM EDT [facility] [email or web address] [facility]OLOG[facility] LABORAT[facility] Blood Structure of peripheral vein / Unknown Venipuncture / Unknown 04/11/2025 8:16 AM EDT 04/11/2025 8:33 AM EDT us Elio Mijares DO LAB BLOOD ORDERABLES Final Re sult [facility] [email or web address] CLINICAL PATHOLOGY LABORATORY [address] [place] [address], * (ABNORMAL) Renal Function Panel (04/11/2025 8:16 AM EDT) NA 140 135 - 145 mmol/L 04/11/2025 9:05 AM EDT [email or web address] [facility] PATHOLOGY LABORATORY K 3.7 3.5 - 5.3 mmol/L 04/11/2025 9:05 AM EDT [facility] CLIN[facility] PATHOLOGY LABORATORY Cl 105 98 - 107 mmol/L 04/11/2025 9:05 AM [facility] CLINICAL PATHOLOGY LABORAT[facility] CO2 21(L) 22 - 32 mmol/L 04/11/2025 9:05 AM [facility] CLINICAL PATHOLOGY LABORATORY Anion Gap 14 5 - 15 04/11/2025 9:05 AM [facility] CLINICAL PATHOLOGY LABOR[facility] Glucose 84 65 - 99 mg/dL 04/11/2025 9:05 AM [facility] CLINICAL PATHOLOGY LABORATORY BUN 6(L) 7 - 23 mg/dL 04/11/2025 9:05 AM [facility] CLINICAL PATHOLOGY LABORATORY Creatinine 0.69 0.60 - 1.30 mg/dL 04/11/2025 9:05 AM [facility] CLINICAL PATHOLOGY LABORATORY Calcium 9.2 8.6 - 10.5 mg/dL 04/11/2025 9:05 AM [facility] CLINICAL PATHOLOGY LAB[facility] Phosphorus 4.1 2.5 - 4.5 mg/dL 04/11/2025 9:05 AM [facility] CLINICAL PATHOLOGY LABORATORY Albumin 3.5 3.5 - 5.2 g/dL 04/11/2025 9:05 AM [facility] CLINICAL PATHOLOGY LABORATORY eGFR >90 >=60 mL/min/1. 73m2 04/11/2025 9:05 AM [facility] CLINICAL PATHOLOGY LABORATORY Comment:The estimated glomer ular [...] BLOOD ORDERABLES Final Result Performing Organization Address City/[facility]/ZIP Co de Phone Number [facility] CL[facility] LAB[facility]ORY [address] [place] [address], [place] * Troponin T, High Sensitivity (04/10/2025 8:06 PM EDT) Only the most recent of3 resultswithin the time period is included. Troponin T High Sensitivity 8 <=21 ng/L 04/10/2025 8:48 PM EDT [facility] Comment: Dm-Hxygzjvw-T level of 52 ng/L or higher at [...] be evaluated in line with the 4th Lester Definition of AMI. Troponin baseline and serial [...] ORDERABLES Final R esult Performing Organization Address City/[facility]/ZIP Co de Phone Number [facility] LAB[facility]ORY [address] [place] [address], [place] * (ABNORMAL) C-reactive protein (04/10/2025 8:06 PM EDT) C Reactive Protein 21.1(H) <=9.9 mg/L 04/10/2025 9:45 PM EDT [employer] CL[facility] PATHOLOG[facility] LAB[facility] Blood Structure of peripheral vein / Unknown Venipuncture / Unknown 04/10/2025 8:06 PM EDT 04/10/2025 8:13 PM EDT us Favian Samuels MD LAB BLOOD ORDERABLES Final Resul t [facility] [address] [place] [address], [place] * CT Chest PE (04/10/2025 7:00 [...] to obtain the completed interpretation. Workstation ID: [id number] Up-to-date CT equipment and radiation dose reduction [...] demonstrates no gross abnormality. Resulting Agency Comment [id number] Procedure Note Nelson Henry MD - 04/10/2025 [...] possible to obtain thecompleted interpretation. Workstation ID: [id number] Up-to-date CT equipment and radiation dose reduction [...] Final Result [facility] [address] [place] [address], [place] [phone] * Protime-INR (04/10/2025 3:10 PM EDT) PT 10.1 9.6 - 12.4 Seconds 04/10/2025 4:12 PM EDT [facility] [employer] CLINICAL PATHOLOGY LABORATORY INR 0.9 0.9 - 1.1 04/10/2025 4:12 PM EDT [facility] Comment:The optimal therapeu tic INR range for patients treated with Vitamin K antagonists (VKAS, e.g., Warfarin) is 2.0 to 3.5. Discuss the desired range with your doctor/care team. Blood Structure of peripheral vein / Unknown Venipuncture / Unknown 04/10/2025 3:10 PM EDT 04/10/2025 3:16 PM EDT us Carlos Enrique Le MD LAB BLOOD ORDERABLES Final Res ult [facility] LABORATORY [address] [place] [address], * (ABNORMAL) Basic Metabolic Panel (04/10/2025 3:10 PM EDT) NA 137 135 - 145 mmol/L 04/10/2025 3:52 PM EDT [facility] PATHOLOG[facility] LAB[facility] K 3.5 3.5 - 5.3 mmol/L 04/10/2025 3:52 PM EDT [facility] Cl 102 98 - 107 mmol/L 04/10/2025 3:52 PM EDT [facility] CO2 24 22 - 32 mmol/L 04/10/2025 3:52 PM EDT [facility] BUN 5(L) 7 - 23 mg/dL 04/10/2025 3:52 PM EDT [facility] Creatinine 0.77 0.60 - 1.30 mg/dL 04/10/2025 3:52 PM EDT [facility] Glucose 117(H) 65 - 99 mg/dL 04/10/2025 3:52 PM EDT [facility] Calcium 9.5 8.6 - 10.5 mg/dL 04/10/2025 3:52 PM EDT [facility]OLOG[facility] LAB[facility] Anion Gap 11 5 - 15 04/10/2025 3:52 PM EDT [email or web address] CLINICAL PATHOLOGY LABORATORY eGFR >90 >=60 mL/min/1. 73m2 04/10/2025 3:52 PM EDT [facility] [employer] CLINICAL PATHOLOGY LABORATORY Comment:The estimated glomer ular [...] MD LAB BLOOD ORDERABLES Final Res ult [facility] [email or web address] CLINICAL PATHOLOGY LABORATORY [address] [place] [address], * HEART & VASCULAR - SCANNED (04/10/2025) Only the most recent of5 resultswithin the time period is included. Anatomical Region Laterality Modality Other us Onbase Scan Vikki SCANNED PROCEDURES Final Resu lt from Last 3 Months Insurance [facility] Advance Directives * Full Code (Latest Code Status on File) Date Activated Date Inactivated Comments 04/10/2025 9:12 PM 04/14/2025 2:45 PM Care Teams Studio Technician Video Operator Relationship Specialty Start Date End Date Benny Lea PA [address] [place] [address] PCP - General 04/10/25
--- OUTSIDE RECORDS SUMMARY | 2025-05-13 18:59 | XMS_ITS | Encounter Summary ---
Author Organization [facility] Address [address] [place] [address] Phone Care Team Providers Care Reeler Operator Name Role Phone Noé Huynh MUSICAL INSTRUMENT MAKER OR REPAIRER Primary Care Provider Wali Long MUSICAL INSTRUMENT MAKER OR REPAIRER Primary Care Provider + Encounter Details Date Type Department Care Team (Latest Contact Info) Description 09/17/2019 Transcribe Orders [facility] [address] [address] Susana Rollins PA [address] [place] [address] Abdominal pain, left lower quadrant (Primary Dx); [...] EST) LIPASE 18 16 - 63 U/L [facility] Blood 09/17/2019 10:1 3 AM EST 09/17/2019 10:17 AM EST us Susana MULLER LAB BLOOD ORDERABLES Final Result [facility] [address] [place] [address] * Comprehensive metabolic panel (09/17/2019 10:13 AM EST) SODIUM 140 133 - 146 mmol/L [facility] POTASSIUM 4.3 3.3 - 5.1 mmol/L [facility] CHLORIDE 104 96 - 108 mmol/L [facility] CO2 27 21 - 35 mmol/L [facility] BUN 6 6 - 19 mg/dL [facility] CREATININE 0.80 0.5 - 1.5 mg/dL [facility] GLUCOSE 72 70 - 99 mg/dL [facility] ALBUMIN 4.4 3.9 - 4.8 g/dL [facility] TOTAL PROTEIN 7.0 6.5 - 8.0 g/dL [facility] CALCIUM 9.2 8.4 - 10.3 mg/dL [facility] ALKALINE PHOSPHATASE 56 39 - 117 U/L [facility] TOTAL BILIRUBIN 0.4 0.0 - 1.2 mg/dL [facility] AST 26 0 - 37 U/L [facility] ALT 15 0 - 40 U/L [facility] GLOBULIN 2.6 1 - 4.8 g/dL [facility] EGFR >120 >59 mL/min/1.7 3m2 [facility] Comment:If patient is black, multiply result by 1.159. Estimated glomerular filtration rate calculated using the CKD-EPI equation. ANION GAP 13 10 - 20 mmol/L [facility] Blood 09/17/2019 10:1 3 AM EST 09/17/2019 10:17 AM EST us Susana MULLER LAB BLOOD ORDERABLES Final Result [address] [address] * CBC (09/17/2019 10:13 AM EST) WBC 5.94 4.00 - 11.00 K/uL [facility] Comment:Note Reference Range updates to all CBC and Differential results. RBC 4.91 4.48 - 5.88 M/uL [facility] HGB 14.8 13.4 - 17.5 g/dL [facility] Comment:Note updated Referen ce Ranges for all CBC and Differential results. HCT 43.8 38.0 - 51.0 % [facility] PLT 377 140 - 430 K/uL [facility] MCV 89.2 78.0 - 97.0 fL [facility] MCH 30.1 25.0 - 33.0 pg [facility] MCHC 33.8 32.0 - 36.0 g/dL [facility] RDW 12.9 11.0 - 15.0 % [facility] MPV 9.4 8.4 - 12.8 fl [facility] NRBC 0.00 0 /100 WBCs [facility] ABSOLUTE NRBC 0.00 0 K/uL [facility] Blood 09/17/2019 10:1 3 AM EST 09/17/2019 10:17 AM EST us Susana MULLER LAB BLOOD ORDERABLES Final Result Performing Organization Address City/State/[facility] Co de Phone Number [facility] [address] [place] [address] documented in this encounter Visit Diagnoses Diagnosis Abdominal pain, left lower quadrant- Primary Bloating Flatulence, eructation, and gas pain Nausea Nausea alone documented in this encounter Care Teams Reeler Operator Relationship Specialty Start Date End Date Noé Huynh NP [email or web address] PCP - General Family Medicine 09/17/19 Wali Long NP [facility] [place] [address] PCP - General Family Medicine 11/11/21 documented as of this encounter Additional Source Comments The information contained in this document represents components of the legal health record. It is not the complete legal health record.[facility]
--- OUTSIDE RECORDS SUMMARY | 2025-05-13 18:59 | XMS_ITS | Encounter Summary ---
Author Organization [facility] Address [address] [address] Phone Care Team Providers Care Mophead Trimmer And Wrapper Name Role Phone Noé Huynh EXPERIMENTAL BOX TESTER Primary Care Provider [phone] Wali Long EXPERIMENTAL BOX TESTER Primary Care Provider + Reason for Referral * MRI/CAT Scan - Closed Specialty Diagnoses / Procedures Referred By Contac t Referred To Contact Radiology Diagnoses LLQ pain Bloating Nausea Procedures CT Abdomen/Pelvis Susana Rollins PA Phone: tel: fax: Referral ID Status Reason Start Date Expiration Date Visits Re quested Visits Authorized [id number] Closed 09/19/2019 12/18/2019 1 1 Encounter Details Date Type Department Care Team (Latest Contact Info) Description 09/19/2019 Transcribe Orders Virtual Department [address] [place] [address] Susana Rollins PA [address] [place] [phone] Bloating (Primary Dx); LLQ pain; Nausea Social [...] alone documented in this encounter Care Teams Mophead Trimmer And Wrapper Relationship Specialty Start Date End Date Noé Huynh NP [email or web address] PCP - General Family Medicine 09/17/19 Wali oLng NP [facility] [place] [address] PCP - General Family Medicine 11/11/21 documented as of this encounter Additional Source Comments The information contained in this document represents components of the legal health record. It is not the complete legal health record.[facility]
--- OUTSIDE RECORDS SUMMARY | 2025-05-13 18:59 | XMS_ITS | Encounter Summary ---
Author Organization [facility] Address [address] [place] [address] Phone Care Team Providers Care Life Science Taxonomist Name Role Phone Noé Huynh PRACTICE OFFICE ASSOCIATE Primary Care Provider [phone] Wali Long PRACTICE OFFICE ASSOCIATE Primary Care Provider + Encounter Details Date Type Department Care Team (Late st Contact Info) Description 05/15/2021 Procedure Pass [facility], Ct Scan - [address] [address] Social History Tobacco Use Types Packs/Day Years [...] on filedocumented in this encounter Care Teams Life Science Taxonomist Relationship Specialty Start Date End Date Noé Huynh PRACTICE OFFICE ASSOCIATE [email or web address] PCP - General Family Medicine 09/17/19 Wali Long, JUAN [address] [facility] [place] [address] PCP - General Family Medicine 11/11/21 documented as of this encounter Additional Source Comments The information contained in this document represents components of the legal health record. It is not the complete legal health record.[facility]
[2025-05-13 19:23] LABS: Hematocrit 36.2 % (42.0-52.0); Hemoglobin 12.4 g/dl (14.0-18.0); Imm Gran Abs Auto 0.06 X10*3/uL (0.00-0.03); Imm Gran Pct Auto 0.5 % (0.0-0.4); Lymphocytes Absolute Auto 1.6 X10*3/uL (1.2-4.9); MANUAL DIFF FLAG NO; Mean Corpuscular HGB Conc 34.3 g/dl (31.0-36.0); Mean Corpuscular Hemoglobin 29.1 pg (27.0-33.0); Mean Corpuscular Volume 85.0 fL (80.0-98.0); NRBC Abs Auto 0.000 X10*3/uL (0.0-0.012); NRBC Pct Auto 0.0 /100WBC (0.0-0.2); Platelet Count 288 X10*3/uL (160-400); Red Blood Count 4.26 X10*6/uL (4.60-5.80); White Blood Count 11.6 X10*3/uL (4.8-10.8)
[2025-05-13 19:29] LABS: Anion Gap 19 (12-20)
[2025-05-13 19:34] LABS: Alanine Aminotransferase 55 U/L (0-40); Albumin Level 4.5 g/dL (3.5-5.0); Alkaline Phosphatase 92 U/L (39-117); Aspartate Amino Transferase 36 U/L (5-37); Blood Urea Nitrogen 4 mg/dL (9-16); Calcium 8.7 mg/dL (8.4-10.2); Carbon Dioxide 23 mmol/L (22-29); Chloride 107 mmol/L (96-108); Creatinine Clr Calc Pharmacy 168.4; Estimated Glomerular Filt Rate > 60; Potassium 3.3 mmol/L (3.3-5.1); Sodium 146 mmol/L (135-145); Total Protein 7.3 g/dL (6.5-8.0)
[2025-05-13 19:42] LABS: Lipase 80 U/L (8-78); Troponin-I High Sensitivity < 2.7 ng/L (<3.5-35.0)
[2025-05-13 19:49] LABS: NT Pro B Type Natriuretic Pept < 15.8 pg/mL (<300)
--- NOTE | 2025-05-13 20:00 | PC.NURSE ---
at this time this pt began yelling out that he needs to leave, when notifying the provider the pt proceeded to rip his IV out of his arm, provider Mane Zambrano made aware, pt proceeded to walk out of ED w/ steady gait w/ information systems security specialist, pt refused D/C paperwork
[2025-05-14 05:31] VITALS: BP 0/0; PULSE 0; RESP 0; TEMP -17.7; TEMP 0; O2SAT 0
== END 2025-05-13 20:00 | disposition left against medical advice (07) ==
PROVIDERS: Physician Assistant; Emergency Provider Emergency Medicine
DX: R07.9 Chest pain, unspecified (principal); F10.129 Alcohol abuse with intoxication, unspecified; Y90.8 Blood alcohol level of 240 mg/100 ml or more; Z86.711 Personal history of pulmonary embolism
CPT/HCPCS: 36415; 71045; 80053; 80307; 82550; 83690; 83880; 84484; 85025; 85652; 93005; 96374; 96375; 99285; J2270; J2405

== ENCOUNTER → 2025-05-13 16:48 | Outpatient (BNV) | payer OTHER, SELFPAY | PROVIDERS: Emergency Provider Emergency Medicine; Visit Provider Internal Medicine Cardiovascular Disease | DX: R00.0 Tachycardia, unspecified (principal) | CPT/HCPCS: 93010 ==

== ENCOUNTER → 2025-05-13 16:52 | Outpatient (BNV) | payer OTHER, SELFPAY | PROVIDERS: Visit Provider Radiology Diagnostic Radiology | DX: J98.4 Other disorders of lung (principal) | CPT/HCPCS: 71045 ==

== ENCOUNTER 2025-05-14 18:53 | Emergency (ER) | payer OTHER, SELFPAY ==
--- NOTE | ~2025-05-14 | XR_ITS ---
CLINICAL HISTORY: pain 1 view chest x-ray Comparison: CR - XR CHEST 1V - 05/13/25 16:59 EDT Findings: Hypoventilatory exam. No consolidation or pleural effusion. Normal size heart. No acute fracture. IMPRESSION: 1. No acute findings. This document has been electronically signed by: Carla Almazan MD on 05/14/2025 20:41:47
--- NOTE | 2025-05-14 19:21 | ECG_ITS ---
Test Reason : CP Blood Pressure : */* mmHG Vent. Rate : 101 BPM Atrial Rate : 101 BPM P-R Int : 144 ms QRS Dur : 80 ms QT Int : 354 ms P-R-T Axes : 61 55 51 degrees QTcB Int : 459 ms Sinus tachycardia Otherwise normal ECG When compared with ECG of 13-May-2025 16:56, ST elevation now present in Inferior leads Referred By: Luna Cuevas Electronically Signed By: CHAO RUIZ MD
[2025-05-14 19:23] VITALS: BP 159/109; PULSE 112; O2SAT 100
[2025-05-14 19:28] VITALS: BMI 28.9
[2025-05-14 20:02] LABS: MANUAL DIFF FLAG NO
[2025-05-14 20:20] LABS: Alanine Aminotransferase 48 U/L (0-40); Albumin Level 4.4 g/dL (3.5-5.0); Alkaline Phosphatase 86 U/L (39-117); Anion Gap 17 (12-20); Aspartate Amino Transferase 34 U/L (5-37); Blood Urea Nitrogen 6 mg/dL (9-16); Calcium 9.0 mg/dL (8.4-10.2); Carbon Dioxide 21 mmol/L (22-29); Chloride 107 mmol/L (96-108); Creatinine Clr Calc Pharmacy 181.0; Estimated Glomerular Filt Rate > 60; Hematocrit 37.3 % (42.0-52.0); Hemoglobin 12.4 g/dl (14.0-18.0); Imm Gran Abs Auto 0.11 X10*3/uL (0.00-0.03); Imm Gran Pct Auto 1.1 % (0.0-0.4); Lymphocytes Absolute Auto 1.6 X10*3/uL (1.2-4.9); Magnesium 2.2 mg/dL (1.6-2.6); Mean Corpuscular HGB Conc 33.2 g/dl (31.0-36.0); Mean Corpuscular Hemoglobin 28.2 pg (27.0-33.0); Mean Corpuscular Volume 84.8 fL (80.0-98.0); NRBC Abs Auto 0.000 X10*3/uL (0.0-0.012); NRBC Pct Auto 0.0 /100WBC (0.0-0.2); Platelet Count 343 X10*3/uL (160-400); Potassium 3.3 mmol/L (3.3-5.1); Red Blood Count 4.40 X10*6/uL (4.60-5.80); Sodium 142 mmol/L (135-145); Total Protein 6.9 g/dL (6.5-8.0); White Blood Count 9.7 X10*3/uL (4.8-10.8)
[2025-05-14 20:27] LABS: Troponin-I High Sensitivity < 2.7 ng/L (<3.5-35.0)
[2025-05-14 21:16] VITALS: BP 127/82; PULSE 88; RESP 20; TEMP 37.1; O2SAT 96
--- NOTE | 2025-05-14 21:57 | ED.CHESTPAIN ---
HPI - Chest Pain General Chief Complaint: Chest Pain Stated Complaint: chest pain Time Seen by Provider: 05/14/25 19:33 Source: patient Limitations: no limitations History of Present Illness ED Provider: Luna Cuevas PA-C HPI narrative: 34-year-old male with a history of alcohol use disorder, PE on Eliquis, prior pericarditis, cocaine abuse who presents with chest pain for several days. Pain over left anterior chest wall, worse with palpation. Denies overuse injury, trauma, new heavy lifting. Denies recent cough or cold symptoms. Denies shortness of breath or diaphoresis. Related Data Home Medications ?Medication ?Instructions ?Recorded ?Confirmed apixaban 5 mg tablet (Eliquis) 5 mg PO BID 05/08/25 05/08/25 citalopram 20 mg tablet 20 mg PO DAILY 05/08/25 05/08/25 colchicine 0.6 mg tablet 0.6 mg PO DAILY 05/08/25 05/08/25 famotidine 20 mg tablet 20 mg PO DAILY 05/08/25 05/08/25 gabapentin 600 mg tablet 600 mg PO TID 05/08/25 05/08/25 melatonin 5 mg tablet 5 mg PO BEDTIME PRN Sleep 05/08/25 05/08/25 pantoprazole 40 mg tablet,delayed 40 mg PO BID@0630,1630 05/08/25 05/08/25 release prednisone 20 mg tablet 20 mg PO BID 05/08/25 05/08/25 sucralfate 1 gram tablet 2 g PO QIDWMHS 05/08/25 05/08/25 trazodone 50 mg tablet 50 mg PO BEDTIME 05/08/25 05/08/25 Allergies Allergy/AdvReac Type Severity Reaction Status Date / Time No Known Allergies Allergy Verified 05/14/25 19:30 [facility] Past Medical History Medical History Dysphagia, pharyngoesophageal phase Pericarditis Pericardial effusion Alcohol use disorder, moderate, dependence MDD (major depressive disorder), recurrent episode, moderate Nausea with vomiting Alcohol use disorder Anxiety and depression History of seizure due to alcohol withdrawal ETOH abuse Surgical History History of surgery H/O endoscopy Family History Family History Other Diabetes Social History Social History Household Members: Family Housing: House Do you presently have visiting nurse or other home services: No Alcohol intake: current Alcohol intake frequency: a few times a month Alcohol type: beer Patient Tobacco Use Status: Former Tobacco user Tobacco use type: Cigarette Smoked in Last 30 Days: Yes e-Cigarette/Vaping Use: Never Used Second Hand Smoke Exposure: No Use of substances other than those prescribed or required for medical reasons: No Substance Use Type: Marijuana Advance Directives: Yes Advance Directives on File: Yes Advance Directives Date on File: 11/07/22 service: No Current occupational status: employed Physical Exam Vital Signs: Vital Signs: Last Vital Signs Temp 98.8 F 05/14/25 22:34 Pulse 88 05/14/25 22:34 Resp 20 05/14/25 22:34 BP 127/82 05/14/25 22:34 Pulse Ox 96 05/14/25 22:34 O2 Del Method Room Air 05/14/25 22:34 BMI result Body Mass Index 28.9 Course Reevaluation(s) Reevaluation #1: At the time of discharge, the patient verbalized to his nurse that he wants detox, we 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 Pain over left anterior chest wall, worse with palpation. Denies overuse injury, trauma, new heavy lifting. Denies recent cough or cold symptoms. Denies shortness of breath or diaphoresis. Problem: PE, prior pericarditis, alcohol use disorder, cocaine abuse History: Per patient I have considered the following differential diagnoses: ACS, PE, chest wall strain, costochondritis, pneumonia, viral syndrome Plan: Screening labs including cardiac enzymes EKG and chest x-ray were obtained. The patient's discomfort is most consistent with chest wall pain, it is readily reproducible with palpation of the chest wall, although he denies a mechanism of injury. Thought about recurrent PE despite anticoagulation, but there was nothing about his current vitals that suggest this. He is not persistently tachycardic he is not hypoxic, he also complains of no shortness of breath. The patient is also intoxicated today. I have independently reviewed the following tests: Labs: No leukocytosis, not anemic, no electrolyte abnormality troponin less than 2.7 ethanol 180 EKG: Sinus tachycardia, rate of 101, no ischemic changes no ectopy QTC 459 Chest x-ray:Findings: Hypoventilatory exam. No consolidation or pleural effusion. Normal size heart. No acute fracture. IMPRESSION: 1. No acute findings. Differential Diagnosis Differential Diagnoses: The differential diagnosis associated with the presentation includes See medical decision-making Admission/Observation Consideration of admission/observation: Escalation of care including admission/observation considered Not applicable Lab Data MDM Lab Attestation statement: I reviewed the patient's lab results. 05/14/25 19:57 05/14/25 19:57 Labs: Lab Results 05/14/25 Range/Units 19:57 WBC 9.7 (4.8-10.8) X10*3/uL RBC 4.40 L (4.60-5.80) X10*6/uL Hgb 12.4 L (14.0-18.0) g/dl Hct 37.3 L (42.0-52.0) % MCV 84.8 (80.0-98.0) fL MCH 28.2 (27.0-33.0) pg MCHC 33.2 (31.0-36.0) g/dl RDW 16.4 H (11.0-16.0) % Plt Count 343 (160-400) X10*3/uL MPV 9.0 L (9.4-12.4) fL Immature Gran % (Auto) 1.1 H (0.0-0.4) % Neut % (Auto) 72.3 (45-73) % Lymph % (Auto) 16.2 L (20-40) % [place] % (Auto) 10.1 (2-11) % Eos % (Auto) 0.0 (0-4) % Baso % (Auto) 0.3 (0-2) % Lymph # (Auto) 1.6 (1.2-4.9) X10*3/uL [place] # (Auto) 1.0 (0.1-1.2) X10*3/uL Eos # (Auto) 0.0 (0.0-0.4) X10*3/uL Baso # (Auto) 0.0 (0.0-0.2) X10*3/uL Abs Immat Gran (auto) 0.11 H (0.00-0.03) X10*3/uL Absolute Neuts (auto) 7.0 (2.0-8.3) x10*3/uL Absolute Nucleated RBC 0.000 (0.0-0.012) X10*3/uL Nucleated RBC % (auto) 0.0 (0.0-0.2) /100WBC ESR 7 (0-15) MM/HR Sodium 142 (135-145) mmol/L Potassium 3.3 (3.3-5.1) mmol/L Chloride 107 (96-108) mmol/L Carbon Dioxide 21 L (22-29) mmol/L Anion Gap 17 (12-20) BUN 6 L (9-16) mg/dL Creatinine 0.62 (0.5-1.4) mg/dL Estim Creat Clear Calc 181.0 Estimated GFR > 60 Random Glucose 107 (60-115) mg/dL Calcium 9.0 (8.4-10.2) mg/dL Magnesium 2.2 (1.6-2.6) mg/dL Total Bilirubin 0.4 (0.0-1.0) mg/dL AST 34 (5-37) U/L ALT 48 H (0-40) U/L Alkaline Phosphatase 86 (39-117) U/L Troponin I High Sens < 2.7 (<3.5-35.0) ng/L C-Reactive Protein 0.20 (< or = 0.50) mg/dL Total Protein 6.9 (6.5-8.0) g/dL Albumin 4.4 (3.5-5.0) g/dL Ethyl Alcohol 180 mg/dL Independent Interpretation I performed an independent interpretation of an: EKG Radiology Impression Discussion of test interpretation with radiology: I have reviewed the radiologist's reading. Discharge Plan Discharge Clinical Impression: Chest wall pain Alcohol intoxication Qualifiers: Complication of substance-induced condition: uncomplicated Qualified Code(s): F10.920 - Alcohol use, unspecified with intoxication, uncomplicated Patient Disposition: Home, Self-Care Instructions: Chest Pain (ED), Alcohol Intoxication (ED) Additional Instructions: All of your screening labs including a cardiac enzymes were normal. There were no concerning changes on the EKG in the chest x-ray is clear. Your discomfort is consistent with chest wall pain. See home care instructions. Follow up with your primary care as needed. Prescriptions: No Action gabapentin 600 mg tablet 600 mg PO TID trazodone 50 mg tablet 50 mg PO BEDTIME prednisone 20 mg tablet 20 mg PO BID citalopram 20 mg tablet 20 mg PO DAILY famotidine 20 mg tablet 20 mg PO DAILY pantoprazole 40 mg tablet,delayed release (DR/EC) 40 mg PO BID@0630,1630 colchicine 0.6 mg tablet 0.6 mg PO DAILY Eliquis 5 mg tablet 5 mg PO BID sucralfate 1 gram tablet 2 g PO QIDWMHS melatonin 5 mg Tablet 5 mg PO BEDTIME PRN (Reason: Sleep) Stand Alone Forms: Work/School Release Interventions: ED Discharge Assessment Last Done: 05/14/25 22:34 Discharge Date/Time: 05/14/25 22:35 Print Language: Bruneian
--- NOTE | 2025-05-14 22:20 | PC.NURSE ---
patient states he no longer wants to speak with recovery and has f/u outpatient with [facility] and would like to be discharged. PA aware.
[2025-05-14 22:34] VITALS: BP 127/82; PULSE 88; RESP 20; TEMP 37.1; O2SAT 96
== END 2025-05-14 22:35 | disposition home or self-care (01) ==
PROVIDERS: Physician Assistant Medical; Emergency Provider Emergency Medicine
DX: R07.89 Other chest pain (principal); F10.920 Alcohol use, unspecified with intoxication, uncomplicated; Z86.711 Personal history of pulmonary embolism; Z79.01 Long term (current) use of anticoagulants; Z51.81 Encounter for therapeutic drug level monitoring; Z79.899 Other long term (current) drug therapy
CPT/HCPCS: 36415; 71045; 80053; 80307; 83735; 84484; 85025; 85652; 86140; 93005; 96372; 99284; J1790

== ENCOUNTER → 2025-05-14 19:21 | Outpatient (BNV) | payer OTHER, SELFPAY | PROVIDERS: Emergency Provider Emergency Medicine; Visit Provider Internal Medicine Cardiovascular Disease | DX: I21.29 ST elevation (STEMI) myocardial infarction involving other sites (principal); R00.0 Tachycardia, unspecified | CPT/HCPCS: 93010 ==

== ENCOUNTER → 2025-05-14 19:33 | Outpatient (BNV) | payer OTHER, SELFPAY | PROVIDERS: Visit Provider Student in an Organized Health Care Education/Training Program | DX: R07.9 Chest pain, unspecified (principal) | CPT/HCPCS: 71045 ==

== ENCOUNTER 2025-06-20 11:33 | Inpatient (IN) | payer OTHER, SELFPAY ==
[2025-06-20] VITALS (7 sets, daily range): BP systolic 105–144; BP diastolic 72–87; PULSE 82–104; RESP 14–20; TEMP 36.6–36.7; O2SAT 94–100; BMI 30.4
--- NOTE | 2025-06-20 | ECG_ITS ---
Test Reason : CP Blood Pressure : */* mmHG Vent. Rate : 102 BPM Atrial Rate : 102 BPM P-R Int : 146 ms QRS Dur : 80 ms QT Int : 358 ms P-R-T Axes : 19 41 47 degrees QTcB Int : 466 ms Sinus tachycardia Nonspecific T wave abnormality Abnormal ECG When compared with ECG of 14-May-2025 19:35, No significant change was found Referred By: Generic ED Physician Electronically Signed By: CHAO RUIZ MD
--- NOTE | ~2025-06-20 | XR_ITS ---
EXAMINATION: XR CHEST CLINICAL INFORMATION: dyspnea COMPARISON: None available. TECHNIQUE: Frontal view of the chest was obtained. FINDINGS: The cardiomediastinal silhouette is within normal limits. Low lung volumes.. There is no focal consolidation, edema, or effusion. No pneumothorax. No acute osseous abnormality. XR/XR chest 1V IMPRESSION: No focal consolidation. Electronically signed by: Aurelio Epps MD 06/20/2025 01:09 PM [facility]
--- NOTE | 2025-06-20 11:58 | ED.ALCOHOL ---
HPI - Alcohol General Chief Complaint: ETOH/Substance Use Stated Complaint: CHEST PAIN, VOMITING Time Seen by Provider: 06/20/25 11:44 Source: patient and EMS Mode of arrival: EMS Limitations: other ( alcohol intoxication) History of Present Illness ED Provider: HPI narrative: 34-year-old male with a history of alcohol use disorder, history of pericarditis, PE, alcohol use disorder with severe dependence, multiple ER visits for chest pain, presenting with intoxication and stating that he is not taking steroids because he does not have access to his prednisone and he has been drinking on regular basis, no suicidal homicidal ideations. Patient was found to have pericardial effusion proximally year ago with follow up studies with resolution and patient had CT angio that showed single small pulmonary embolism patient is supposed to be taking blood thinners. Related Data Home Medications ?Medication ?Instructions ?Recorded ?Confirmed apixaban 5 mg tablet (Eliquis) 5 mg PO BID 05/08/25 05/08/25 citalopram 20 mg tablet 20 mg PO DAILY 05/08/25 05/08/25 colchicine 0.6 mg tablet 0.6 mg PO DAILY 05/08/25 05/08/25 famotidine 20 mg tablet 20 mg PO DAILY 05/08/25 05/08/25 gabapentin 600 mg tablet 600 mg PO TID 05/08/25 05/08/25 melatonin 5 mg tablet 5 mg PO BEDTIME PRN Sleep 05/08/25 05/08/25 pantoprazole 40 mg tablet,delayed 40 mg PO BID@0630,1630 05/08/25 05/08/25 release prednisone 20 mg tablet 20 mg PO BID 05/08/25 05/08/25 sucralfate 1 gram tablet 2 g PO QIDWMHS 05/08/25 05/08/25 trazodone 50 mg tablet 50 mg PO BEDTIME 05/08/25 05/08/25 Allergies Allergy/AdvReac Type Severity Reaction Status Date / Time No Known Allergies Allergy Verified 06/20/25 11:44 Review of Systems Review of Systems: Yes Unobtainable due to mental status PMFSH Past Medical History Medical History Dysphagia, pharyngoesophageal phase Pericarditis Pericardial effusion Alcohol use disorder, moderate, dependence MDD (major depressive disorder), recurrent episode, moderate Nausea with vomiting Alcohol use disorder Anxiety and depression History of seizure due to alcohol withdrawal ETOH abuse Surgical History History of surgery H/O endoscopy Family History Family History Other Diabetes Social History Social History Household Members: Family Housing: House Do you presently have visiting nurse or other home services: No Alcohol intake: current Alcohol intake frequency: 3 or more drinks per day Alcohol type: beer Patient Tobacco Use Status: Former Tobacco user Tobacco use type: Cigarette Smoked in Last 30 Days: No e-Cigarette/Vaping Use: Never Used Second Hand Smoke Exposure: No Use of substances other than those prescribed or required for medical reasons: No Substance Use Type: Marijuana Advance Directives: Yes Advance Directives on File: Yes Advance Directives Date on File: 11/07/22 Do you have a plan to hurt others: No Plan service: No Current occupational status: employed Physical Exam ED Exam Exam: General: Appears older than stated age, clinically intoxicated ? no scleral icterus, no blood in the airway ? Neck: Supple, no LAD ? CV: S1-S2 no obvious murmurs no distal heart sounds ? Resp: ?No wheezing rales rhonchi no stridor moving air well ? Abd: ?Bowel sounds are present, no tenderness no rebound no rigidity ? MSK: FROM, strength 5/5 all extremities ? Skin: Warm, dry, intact, ? Neuro: alert, intoxicated, redirectable Vital Signs: Vital Signs - 24 hr 06/20/25 11:44 06/20/25 13:57 06/20/25 16:41 Temperature 97.9 F 97.8 F Pulse Rate 86 88 99 Respiratory Rate 18 20 16 Blood Pressure 113/86 118/73 Pulse Oximetry 99 99 95 Oxygen Delivery Method Room Air Room Air Room Air 06/20/25 18:29 06/20/25 20:15 Temperature 98.1 F Pulse Rate 82 104 H Respiratory Rate 16 16 Blood Pressure 119/81 105/72 Pulse Oximetry 94 94 Oxygen Delivery Method Room Air Room Air BMI result Body Mass Index 30.4 Medical Decision Making Medical Decision Making MDM Narrative: 12:04 PM 06/20/2025 (Dr. Schuyler Campos): 34-year-old with a history of small PE, pericardial effusion secondary to pericarditis that has since resolved, he had a TTE December 2024 with normal LV function, no evidence of pericardial effusion, he has intoxicated and typically it sounds like when he drinks he does not take medications that he is supposed to be taking, he is presenting with chest pain without hemodynamic instability hypoxia or tachycardia to suspect increased clot burden, did not feel further imaging is indicated at this time he just had CT angio performed last month for his admission on 05/08/2025, he has had multiple admissions for alcohol withdrawal, this time we will initiate Valium 5 mg he is not withdrawing he is clinically intoxicated but I would like to prevent any potential escalation I would like the patient to rest so we can get a workup and then determine whether he would like to pursue detox or he needs to be medically admitted 2:09 PM 06/20/2025 (Dr. Schuyler Campos): I was notified by patient's I ran that he is still having chest pain and his CIWA is 17, I evaluated the patient, his heart rate is in the 80s, he is normotensive, fairly lethargic on my evaluation, non tremulous ECG cardiac enzymes unremarkable will give Toradol, there was no objective findings that patient is in alcohol withdrawal after 5 mg of IV Valium and at presentation his alcohol level is 252 @ 1215 and ultrasound performed as well without pericardial effusion RV strain, unfortunately he is also not taking his medications including Eliquis for small PE that he has had on CTA patient is requesting more Valium, I will provide another dosage though he has overall looked very well he is on the phone with outpatient detox I have explained to the patient that and will not be able to give him anything except for Valium and colchicine steroids for his pain though I will technically able to giving Toradol because it sounds like he has not taking his blood thinners in some time 3:16 PM 06/20/2025 (Dr. Schuyler Campos): at this time patient is stating that if I do not give him more Valium he is going to leave, however he is clinically intoxicated and I already gave him 10 mg of Valium, and so I am getting security to bedside and he may have to be sedated 4:17 PM 06/20/2025 (Dr. Schuyler Campos): Patient was able to be deescalated, I did give him Haldol and Benadryl and now he is asleep this was not for restraint 9:06 PM 06/20/2025 (Dr. Schuyler Campos): signed out to incoming provider Dr. Saini pending care team evaluation and sobriety Differential Diagnosis Differential Diagnoses: The differential diagnosis associated with the presentation includes ( alcohol withdrawal, dehydration, electrolyte derangements, alcohol withdrawal seizures, pericarditis, myocarditis, ACS, PE, pneumonia, pneumothorax) Admission/Observation Consideration of admission/observation: Escalation of care including admission/observation considered Lab Data 06/20/25 12:15 06/20/25 12:15 Labs: Lab Results 06/20/25 06/20/25 Range/Units 12:15 12:16 WBC 13.0 H (4.8-10.8) X10*3/uL RBC 4.86 (4.60-5.80) X10*6/uL Hgb 13.4 L (14.0-18.0) g/dl Hct 40.9 L (42.0-52.0) % MCV 84.2 (80.0-98.0) fL MCH 27.6 (27.0-33.0) pg MCHC 32.8 (31.0-36.0) g/dl RDW 18.3 H (11.0-16.0) % Plt Count 475 H D (160-400) X10*3/uL MPV 8.8 L (9.4-12.4) fL Immature Gran % (Auto) 0.8 H (0.0-0.4) % Neut % (Auto) 60.6 (45-73) % Lymph % (Auto) 28.1 (20-40) % [place] % (Auto) 9.3 (2-11) % Eos % (Auto) 0.5 (0-4) % Baso % (Auto) 0.7 (0-2) % Lymph # (Auto) 3.7 (1.2-4.9) X10*3/uL [place] # (Auto) 1.2 (0.1-1.2) X10*3/uL Eos # (Auto) 0.1 (0.0-0.4) X10*3/uL Baso # (Auto) 0.1 (0.0-0.2) X10*3/uL Abs Immat Gran (auto) 0.10 H (0.00-0.03) X10*3/uL Absolute Neuts (auto) 7.9 (2.0-8.3) x10*3/uL Absolute Nucleated RBC 0.000 (0.0-0.012) X10*3/uL Nucleated RBC % (auto) 0.0 (0.0-0.2) /100WBC Smear Tech's Comments VERIFIED Hold Purple Top SEE NOTE Sodium 142 (135-145) mmol/L Potassium 3.5 (3.3-5.1) mmol/L Chloride 105 (96-108) mmol/L Carbon Dioxide 23 (22-29) mmol/L Anion Gap 18 (12-20) BUN 7 L (9-16) mg/dL Creatinine 0.65 (0.5-1.4) mg/dL Estim Creat Clear Calc 182.3 Estimated GFR > 60 Random Glucose 83 (60-115) mg/dL Calcium 8.7 (8.4-10.2) mg/dL Total Bilirubin 0.3 (0.0-1.0) mg/dL AST 31 (5-37) U/L ALT 28 (0-40) U/L Alkaline Phosphatase 60 (39-117) U/L Troponin I High Sens < 2.7 (<3.5-35.0) ng/L Total Protein 7.5 (6.5-8.0) g/dL Albumin 4.8 (3.5-5.0) g/dL Ethyl Alcohol 252 mg/dL ABG Data Attestation ABG: I personally reviewed and interpreted this ABG as follows: Independent Interpretation I performed an independent interpretation of an: EKG ( 102 beats per minute otherwise normal ECG without dysrhythmia, AV obbo blocks or ST-T changes to suspect underlying ACS, my independent interpretation, of note patient's ECGs going down to 03/26/2025 has been with increased heart rate up to 115) Independent Historian Clinical information obtained from an independent historian. History obtained from or confirmed by: EMS External Record Review External record reviewed: Inpatient record Chronic Conditions Patient?s care impacted by: Other ( history of pulmonary embolus, alcohol use disorder, pericarditis) Social Determinants Patient?s care significantly limited by Social Determinants of Health including: Alcoholism and drug addiction in family and Problems related to primary support group Medications Administered Discontinued Medications Generic Name Dose Route Start Last Admin Trade Name Ramírez PRN Reason Stop Dose Admin Colchicine 0.6 mg 06/20/25 14:12 06/20/25 14:30 Colchicine 0.6 Mg Tablet PO 06/20/25 14:13 0.6 mg ONCE ONE Administration Diazepam 5 mg 06/20/25 11:58 06/20/25 12:17 Diazepam 10 Mg/2 Ml Cartridge IVPUSH 06/20/25 11:59 5 mg STAT STA Administration Diazepam 5 mg 06/20/25 14:38 06/20/25 14:44 Diazepam 10 Mg/2 Ml Cartridge IVPUSH 06/20/25 14:39 5 mg STAT STA Administration Diphenhydramine HCl 25 mg 06/20/25 15:29 06/20/25 15:37 Diphenhydramine Hcl 50 Mg/Ml Vial IVPUSH 06/20/25 15:30 25 mg ONCE ONE Administration Haloperidol Lactate 5 mg 06/20/25 15:29 06/20/25 15:37 Haloperidol Lactate 5 Mg/Ml Vial IVPUSH 06/20/25 15:30 5 mg STAT STA Administration Prednisone 60 mg 06/20/25 14:12 06/20/25 14:20 Prednisone 20 Mg Tablet PO 06/20/25 14:13 60 mg ONCE ONE Administration Procedures Ultrasound ED POC Ultrasound: EMERGENCY ULTRASOUND REPORT?Point of Care Cardiac (Echo-Focus), images I locally stored Emergent Cardiac for Indication: Views Used: Parasternal long, parasternal short, 4 chamber, subxiphoid, IVC Pericardial Effusion/Tamponade Findings: Global LV Fxn:Intact IVC Dilation and Resp Variation: IVC not able to be visualized but there was no pericardial effusi on no RV strain impression no evidence pericardial effusion RV strain good cardiac squeeze Critical Care Time Critical Care Time Critical Care Time: Yes Total Critical Care Time: 35 Attestation: Time is exclusive of separately billable procedures. Time includes: direct patient care, patient reassessment, coordination of patient care, interpretation of data (laboratory data, pulse oximetry, arterial blood gases and chest xrays), review of patient's medical records, medical consultation and documentation of patient care. Procedures excluded from critical care time: central intravenous line placement and electrocardiography. Discharge Plan Discharge Clinical Impression: Chest pain Alcohol intoxication Qualifiers: Complication of substance-induced condition: uncomplicated Qualified Code(s): F10.920 - Alcohol use, unspecified with intoxication, uncomplicated Prescriptions: No Action gabapentin 600 mg tablet 600 mg PO TID trazodone 50 mg tablet 50 mg PO BEDTIME prednisone 20 mg tablet 20 mg PO BID citalopram 20 mg tablet 20 mg PO DAILY famotidine 20 mg tablet 20 mg PO DAILY pantoprazole 40 mg tablet,delayed release (DR/EC) 40 mg PO BID@0630,1630 colchicine 0.6 mg tablet 0.6 mg PO DAILY Eliquis 5 mg tablet 5 mg PO BID sucralfate 1 gram tablet 2 g PO QIDWMHS melatonin 5 mg Tablet 5 mg PO BEDTIME PRN (Reason: Sleep) Print Language: Moroccan
--- NOTE | 2025-06-20 11:59 | ECG_ITS ---
Test Reason : chest pain Blood Pressure : */* mmHG Vent. Rate : 80 BPM Atrial Rate : 80 BPM P-R Int : 168 ms QRS Dur : 84 ms QT Int : 374 ms P-R-T Axes : 35 25 15 degrees QTcB Int : 431 ms Normal sinus rhythm Nonspecific T wave abnormality Abnormal ECG When compared with ECG of 20-Jun-2025 11:38, No significant change was found Referred By: Cristela Ruvalcaba Electronically Signed By: CHAO RUIZ MD
[2025-06-20] MEDS: diazePAM 10 MG/2 ML CARTRIDGE 5 MG IVPUSH ×2 (12:17→14:44)
[2025-06-20 12:48] LABS: Alanine Aminotransferase 28 U/L (0-40); Albumin Level 4.8 g/dL (3.5-5.0); Alkaline Phosphatase 60 U/L (39-117); Anion Gap 18 (12-20); Aspartate Amino Transferase 31 U/L (5-37); Blood Urea Nitrogen 7 mg/dL (9-16); Calcium 8.7 mg/dL (8.4-10.2); Carbon Dioxide 23 mmol/L (22-29); Chloride 105 mmol/L (96-108); Creatinine Clr Calc Pharmacy 182.3; Estimated Glomerular Filt Rate > 60; Potassium 3.5 mmol/L (3.3-5.1); Sodium 142 mmol/L (135-145); Total Protein 7.5 g/dL (6.5-8.0)
[2025-06-20 12:51] LABS: Hematocrit 40.9 % (42.0-52.0); Hemoglobin 13.4 g/dl (14.0-18.0); Imm Gran Abs Auto 0.10 X10*3/uL (0.00-0.03); Imm Gran Pct Auto 0.8 % (0.0-0.4); Lymphocytes Absolute Auto 3.7 X10*3/uL (1.2-4.9); MANUAL DIFF FLAG SCAN; Mean Corpuscular HGB Conc 32.8 g/dl (31.0-36.0); Mean Corpuscular Hemoglobin 27.6 pg (27.0-33.0); Mean Corpuscular Volume 84.2 fL (80.0-98.0); NRBC Abs Auto 0.000 X10*3/uL (0.0-0.012); NRBC Pct Auto 0.0 /100WBC (0.0-0.2); PLT CLUMP 1; Red Blood Count 4.86 X10*6/uL (4.60-5.80); SCAN SMEAR FLAG 1
[2025-06-20 12:54] LABS: Troponin-I High Sensitivity < 2.7 ng/L (<3.5-35.0)
[2025-06-20 13:23] LABS: Platelet Count 475 X10*3/uL (160-400); White Blood Count 13.0 X10*3/uL (4.8-10.8)
--- NOTE | 2025-06-20 14:11 | PC.NURSE ---
Patient c/o 03/[address] Costello notified. Also notified MD about CIWA- 18.
--- NOTE | 2025-06-20 16:16 | PC.NURSE ---
Patient asleep after benadryl and haldol. Dr. Campos notified.
[2025-06-21] VITALS (10 sets, daily range): BP systolic 128–140; BP diastolic 81–98; PULSE 70–82; RESP 14–20; TEMP 36.1–36.8; O2SAT 95–99; BMI 30.1
--- NOTE | 2025-06-21 | ECG_ITS ---
Test Reason : chest pain Blood Pressure : */* mmHG Vent. Rate : 75 BPM Atrial Rate : 75 BPM P-R Int : 144 ms QRS Dur : 86 ms QT Int : 360 ms P-R-T Axes : 29 36 25 degrees QTcB Int : 402 ms Normal sinus rhythm with sinus arrhythmia Normal ECG When compared with ECG of 21-Jun-2025 16:42, Nonspecific T wave abnormality no longer evident in Lateral leads Referred By: Cristela Ruvalcaba Electronically Signed By: DANIELLE MARION
--- NOTE | 2025-06-21 00:18 | MHC.CARE ---
Pt was seen for recovery and seeking detox. He was approved by [facility] for admission however, due to leaving the [place] location AMA on Monday he is only able to be admitted to their alternative location located in [place], [place] who did not have a male bed available at this time. [facility] has been provided the ED number and indicated that if any other updates occur on second shift they will contact the ED and request to speak to his RN at that time and Care Team will follow up in AM to inquire if the [place] location has a male bed available and follow up as needed to assist with discharge as [facility] will set up transportation to get him to their facility once a male bed becomes available. ED attending Dr. Saini has been updated and information will be passed to his RN regarding no open bed this evening. [facility] Intake
[2025-06-21] MEDS: PHENobarbitaL sodium 130 MG/ML IM ONCE 283 MG IM (02:12)
--- NOTE | 2025-06-21 02:47 | PM.IMHP ---
History of Present Illness Date of Service: 06/21/25 Attending physician on admission: Rubina Ashby Chief Complaint: chest pain, alcohol withdrawal symptoms Jack Burns is a 34 years old man with past medical history significant for alcohol abuse, multiple visits to the hospital with chest pain, chronic pericarditis on prednisone s/p pericardiocentesis, chronic chest pain and PE on Eliquis presents to the emergency department complaining of chest pain and withdrawal symptoms including anxiety and tremulousness. HPI was difficult to obtain as the patient was not in distress due to tremulousness and pain. He said that he is homeless and is living with a friend. He drinks daily about 20 beers, last drink was today. During last hospitalization the patient left AMA. Chart review: TTE June 2025 showed normal LVEF and no obvious valvular pathology. In the ED he was found to have stable vital signs except for tachycardia. Blood workup is remarkable for leukocytosis of 13. Hemoglobin 13.4 and platelets 475. Electrolytes are normal. BUN 17 and creatinine 0.65. LFTs are normal. Troponin < 2.7. ETOH level today is 252. CXR showed no focal consolidation and cardiac silhouette is normal. ECG is consistent with sinus tachycardia, heart rate 102 beats per minute; nonspecific T-wave abnormalities. ED tx: Valium 20 mg total, phenobarbital protocol started, NS 1 L bolus, Benadryl 25 mg IV, Haldol 5 mg IV, prednisone 60 mg p.o., colchicine 0.6 mg p.o. Review of Systems Review of Systems: Unable to obtain in details, pt is in distress [facility] Medical History Dysphagia, pharyngoesophageal phase Pericarditis Pericardial effusion Alcohol use disorder, moderate, dependence MDD (major depressive disorder), recurrent episode, moderate Nausea with vomiting Alcohol use disorder Anxiety and depression History of seizure due to alcohol withdrawal ETOH abuse Family History Other Diabetes Surgical History History of surgery H/O endoscopy Social History Household Members: Family Housing: House Do you presently have visiting nurse or other home services: No Alcohol intake: current Alcohol intake frequency: 3 or more drinks per day Alcohol type: beer Patient Tobacco Use Status: Former Tobacco user Tobacco use type: Cigarette Smoked in Last 30 Days: No e-Cigarette/Vaping Use: Never Used Second Hand Smoke Exposure: No Use of substances other than those prescribed or required for medical reasons: No Substance Use Type: Marijuana Advance Directives: Yes Advance Directives on File: Yes Advance Directives Date on File: 11/07/22 Do you have a plan to hurt others: No Plan service: No Current occupational status: employed Meds Allergies Allergy/AdvReac Type Severity Reaction Status Date / Time No Known Allergies Allergy Verified 06/20/25 11:44 Active Medications: Current Medications Acetaminophen (Acetaminophen 325 Mg Tablet) 650 mg PO Q6H PRN PRN Reason: Pain, Mild 1-3,fever,headache Calcium Carbonate (Calcium Carbonate 750 Mg Tab.Chew) 750 mg PO Q4H PRN PRN Reason: Heartburn Diazepam (Diazepam 10 Mg/2 Ml Cartridge) 7.5 mg IVPUSH STAT STA Stop: 06/21/25 02:39 Gabapentin (Gabapentin 600 Mg Tablet) 600 mg PO ONCE STA Stop: 06/21/25 02:41 Hydromorphone HCl (Hydromorphone Hcl 1 Mg/Ml Syringe) 1 mg IVPUSH ONCE ONE; Protocol Stop: 06/21/25 02:39 Hydromorphone HCl (Hydromorphone Hcl 1 Mg/Ml Syringe) 1 mg IVPUSH Q4H PRN; Protocol PRN Reason: Pain, Severe (Pain Scale 7-10) Sodium Chloride (Ns) 1,000 mls @ 999 mls/hr IV .Q1H1M EL Stop: 06/21/25 03:00 Last Admin: 06/21/25 02:14 Dose: 999 mls/hr Thiamine HCl 100 mg/ Sodium (Chloride) 101 mls @ 202 mls/hr IV ONCE STA Stop: 06/21/25 03:12 Dextrose/Sodium Chloride (D5ns) 1,000 mls @ 125 mls/hr IVCONT .Q8H EL Stop: 06/21/25 10:44 Magnesium Hydroxide (Milk Of Magnesia 30 Ml Oral.Susp) 30 ml PO DAILY PRN PRN Reason: Constipation Melatonin (Melatonin 3 Mg Tablet) 6 mg PO BEDTIME PRN PRN Reason: Insomnia Ondansetron HCl (Ondansetron Hcl 4 Mg/2 Ml Vial) 4 mg IVPUSH Q8H PRN PRN Reason: Nausea and Vomiting Pantoprazole Sodium (Pantoprazole Sodium 40 Mg/10 Ml Vial) 40 mg IVPUSH DAILY@0630 [facility] Pharmacy Consult (Consult Rx Etoh Phenob Im/Po) 1 each MISCELLANE ONCE PRN; Protocol PRN Reason: Consult order Phenobarbital (Phenobarbital 15 Mg Tablet) 45 mg PO BID@0600,1800 [facility] Stop: 06/23/25 06:01 Phenobarbital (Phenobarbital 15 Mg Tablet) 15 mg PO BID@0600,1800 [facility] Stop: 06/25/25 06:01 Phenobarbital (Phenobarbital 15 Mg Tablet) 15 mg PO DAILY@1800 [facility] Stop: 06/26/25 18:01 Phenobarbital Sodium (Phenobarbital Sodium 130 Mg/Ml Vial Im Q3hx2) 212 mg IM Q3H [facility] Stop: 06/21/25 08:01 Sodium Chloride (0.9 % Sodium Chloride Flush 3 Ml Syringe) 3 ml IVFLUSH QSHIFT [facility] Home Medications ?Medication ?Instructions ?Recorded ?Confirmed ?Last Taken ?Type apixaban 5 mg tablet (Eliquis) 5 mg PO BID 05/08/25 05/08/25 1 Day Ago History ~05/07/25 citalopram 20 mg tablet 20 mg PO DAILY 05/08/25 05/08/25 1 Day Ago History ~05/07/25 colchicine 0.6 mg tablet 0.6 mg PO DAILY 05/08/25 05/08/25 1 Day Ago History ~05/07/25 famotidine 20 mg tablet 20 mg PO DAILY 05/08/25 05/08/25 1 Day Ago History ~05/07/25 gabapentin 600 mg tablet 600 mg PO TID 05/08/25 05/08/25 1 Day Ago History ~05/07/25 melatonin 5 mg tablet 5 mg PO BEDTIME PRN Sleep 05/08/25 05/08/25 Unknown History pantoprazole 40 mg tablet,delayed 40 mg PO BID@0630,1630 05/08/25 05/08/25 1 Day Ago History release ~05/07/25 prednisone 20 mg tablet 20 mg PO BID 05/08/25 05/08/25 1 Day Ago History ~05/07/25 sucralfate 1 gram tablet 2 g PO QIDWMHS 05/08/25 05/08/25 1 Day Ago History ~05/07/25 trazodone 50 mg tablet 50 mg PO BEDTIME 05/08/25 05/08/25 1 Day Ago History ~05/07/25 Physical Exam Vital Signs and Narrative: Vital Signs: Last Vital Signs Temp 98.1 F 06/20/25 18:29 Pulse 103 H 06/20/25 22:12 Resp 14 06/20/25 22:12 BP 129/87 06/20/25 22:12 Pulse Ox 96 06/20/25 22:12 O2 Del Method Room Air 06/20/25 22:12 BMI result Body Mass Index 30.4 General: Alert, oriented, in acute distress due to chest pain and alcohol withdrawal Symptoms. HEENT: Head normocephalic, atraumatic. PER, EOMI. Sclerae anicteric, conjunctiva clear. Dry oral mucosa Neck: Supple, no lymphadenopathy, or JVD. Heart: Tachycardic, normal rhythm. No murmurs gallops or rubs. Lungs: Clear to auscultation bilaterally. No wheezes, rales, or rhonchi. Normal respiratory effort. Abdomen: Soft, tenderness, nondistended, normoactive bowel sounds. Extremities: No calf tenderness bilaterally, no swelling Musculoskeletal: Full range of motion. No joint swelling, deformity, or tenderness. Normal muscle tone and strength. Skin: Warm/Dry. No pallor. No jaundice. Neurologic: Alert & oriented x4. Moving all extremities spontaneously. Normal speech. Psychological: anxious mood and affect. Thought process coherent. Results Labs 06/20/25 12:15 06/20/25 12:15 Labs: Laboratory Results - last 24 hr 06/20/25 06/20/25 12:15 12:16 MCV 84.2 MCH 27.6 MCHC 32.8 RDW 18.3 H Plt Count 475 H D MPV 8.8 L Immature Gran % (Auto) 0.8 H Neut % (Auto) 60.6 Lymph % (Auto) 28.1 [place] % (Auto) 9.3 Eos % (Auto) 0.5 Baso % (Auto) 0.7 Lymph # (Auto) 3.7 [place] # (Auto) 1.2 Eos # (Auto) 0.1 Baso # (Auto) 0.1 Abs Immat Gran (auto) 0.10 H Absolute Neuts (auto) 7.9 Absolute Nucleated RBC 0.000 Nucleated RBC % (auto) 0.0 Smear Tech's Comments VERIFIED Hold Purple Top SEE NOTE Anion Gap 18 Estim Creat Clear Calc 182.3 Estimated GFR > 60 Random Glucose 83 Calcium 8.7 Total Bilirubin 0.3 AST 31 ALT 28 Alkaline Phosphatase 60 Troponin I High Sens < 2.7 Total Protein 7.5 Albumin 4.8 Ethyl Alcohol 252 Imaging Radiologist's Impressions: Impressions Chest X-Ray 06/20/25 12:49 IMPRESSION: No focal consolidation. Electronically signed by: Aurelio Epps MD 06/20/2025 01:09 PM EST Assessment and Plan (1) Alcohol withdrawal: Qualifiers: Complication of substance-induced condition: uncomplicated Qualified Code(s): F10.930 - Alcohol use, unspecified with withdrawal, uncomplicated Status: Acute (2) Chest pain: Qualifiers: Chest pain type: unspecified Qualified Code(s): R07.9 - Chest pain, unspecified Status: Acute Plan Jack Burns is a 34 y/o man who presents to the ED multiple occasions with: Alcohol withdrawal syndrome. Telemetry. CIWA. Continue phenobarbital protocol. Thiamine, folic acid and multivitamins. Patient advised to attend for alcohol consumption. Addition and social work consult. Seizure precautions. Chronic chest pain, likely secondary to GERD/erosive gastritis. Trop <2.7. CXR is normal. Continue IV pain meds and IV PPIs. Leukocytosis, secondary to steroids/prednisone. No evidence of infection.Continue to monitor. Hx pericarditis. Last echo is normal. Continue prednisone and colchicine. Hx PE. Continue Eliquis. med rec pending Code status: Full DVT prophylaxis: On Eliquis Patient will need hospitalization for at least 2 midnights for alcohol withdrawal syndrome treatment and management with close monitoring of CIWA on phenobarbital protocol. This documentation was generated using dictation software; minor spreading or senior chemical engineer errors may be present. Quality Stroke Does the patient have a stroke diagnosis?: No VTE Prior VTE?: No VTE Risk Level:: Medical - moderate - high VTE Device Contraindication: Treatment Not Indicated VTE Drug Contraindication: N/A - Med Ordered
[2025-06-21] MEDS: diazePAM 10 MG/2 ML CARTRIDGE 7.5 MG IVPUSH (02:48)
--- NOTE | 2025-06-21 03:02 | MHC.EDTECH ---
patient now admitted to the hospital, went in to do vitals and noticed patients phone in the room along with claudinely. i looked at the belongings list and noticed things were missing on the list patient has a wallet with 4 cards and 12 dollars patient has a cellphone and charging device patient has shoes, underwear, jeans, 2 sweatshirts, shirts, mini speaker, hat total of 3 bags in the albert [place] shelf 3 patient does have posession of cellphone and charging device-ok'd bynurse
[2025-06-21] MEDS: Thiamine HCL 100 MG in 0.9 % Sodium Chloride 100 ML 202 MG IV (04:02)
[2025-06-21] MEDS: PHENobarbitaL sodium 130 MG/ML VIAL IM Q3Hx2 212 MG IM ×2 (05:30→08:10)
--- NOTE | 2025-06-21 06:05 | HO.NURTONUR ---
Addendum entered by Jannet aCldera RN 06/21/25 07:32: Sleeping this morning. No new complaints. This RN alerted care team to cancel his outpatient recovery bed (tried calling facility X2). Original Note: 34 Y M, aox4, presents with chest pain, N/V, & ETOH and on Eliquis (Hx PE's). NSR on monitor. Gets tachy during withdrawal, diaphoretic, and anxious. Phenobarb, Valium, and Dilaudid have been effective for his discomforts. Hx chronic pericarditis on prednisone s/p pericardiocentesis. Being admitted for alcohol withdrawal and chest pain. On Phenobarb protocol. Current CIWA 0. 20G L FA with D5NS running at 125mls/hr. Pt is on bedrest. Ambularoty at baseline.
--- NOTE | 2025-06-21 07:22 | PC.NURSE ---
This RN tried calling [facility] X2 to cancel bed due to pt being medically admitted, unable to get ahold of anyone. This RN let Care team know who said they will take care of it.
--- NOTE | 2025-06-21 07:27 | P.PNIM_ITS ---
Subjective Subjective Date of Service: 06/21/25 Interval History: Patient has electrolyte abnormalities repleted to goal Patient reports being okay for withdrawal standpoint Continue phenobarb protocol Addiction med consulted Review of Systems Review of Systems: Yes all other systems are reviewed and are negative Physical Exam 2 Exam: Exam: General: AO X 3, ,ild distress Resp: CTA bilateral, no accessory muscles used CVS: S1,S2,RRR GI: soft, non tender, non distended Neuro: motor grossly intact, alert Psych: appropriate affect, appropriate insight Vital Signs: Vital Signs: Last Vital Signs Temp 98.3 F 06/21/25 05:48 Pulse 80 06/21/25 05:48 Resp 20 06/21/25 05:48 BP 130/89 06/21/25 05:48 Pulse Ox 99 06/21/25 05:48 O2 Del Method Room Air, Nasal C annula with Capnog alice 06/21/25 05:48 BMI result Body Mass Index 30.4 Objective Data Active Medications Acetaminophen (Acetaminophen 325 Mg Tablet) 650 mg PO Q6H PRN PRN Reason: Pain, Mild 1-3,fever,headache Calcium Carbonate (Calcium Carbonate 750 Mg Tab.Chew) 750 mg PO Q4H PRN PRN Reason: Heartburn Folic Acid (Folic Acid 1 Mg Tablet) 1 mg PO DAILY EL Hydromorphone HCl (Hydromorphone Hcl 1 Mg/Ml Syringe) 1 mg IVPUSH Q4H PRN; Protocol PRN Reason: Pain, Severe (Pain Scale 7-10) Dextrose/Sodium Chloride (D5ns) 1,000 mls @ 125 mls/hr IVCONT .Q8H [facility] Stop: 06/21/25 10:44 Last Admin: 06/21/25 04:02 Dose: 125 mls/hr Documented By: REUBEN Magnesium Hydroxide (Milk Of Magnesia 30 Ml Oral.Susp) 30 ml PO DAILY PRN PRN Reason: Constipation Melatonin (Melatonin 3 Mg Tablet) 6 mg PO BEDTIME PRN PRN Reason: Insomnia Multivitamins/Vitamin C (Multivitamin Tablet) 1 tab PO BEDTIME EL Ondansetron HCl (Ondansetron Hcl 4 Mg/2 Ml Vial) 4 mg IVPUSH Q8H PRN PRN Reason: Nausea and Vomiting Pantoprazole Sodium (Pantoprazole Sodium 40 Mg/10 Ml Vial) 40 mg IVPUSH DAILY@0630 [facility] Last Admin: 06/21/25 04:02 Dose: 40 mg Documented By: REUBEN Pharmacy Consult (Consult Rx Etoh Phenob Im/Po) 1 each MISCELLANE ONCE PRN; Protocol PRN Reason: Consult order Phenobarbital (Phenobarbital 15 Mg Tablet) 45 mg PO BID@0600,1800 [facility] Stop: 06/23/25 06:01 Phenobarbital (Phenobarbital 15 Mg Tablet) 15 mg PO BID@0600,1800 [facility] Stop: 06/25/25 06:01 Phenobarbital (Phenobarbital 15 Mg Tablet) 15 mg PO DAILY@1800 [facility] Stop: 06/26/25 18:01 Phenobarbital Sodium (Phenobarbital Sodium 130 Mg/Ml Vial Im Q3hx2) 212 mg IM Q3H [facility] Stop: 06/21/25 08:01 Last Admin: 06/21/25 05:30 Dose: 212 mg Documented By: REUBEN Sodium Chloride (0.9 % Sodium Chloride Flush 3 Ml Syringe) 3 ml IVFLUSH QSHIFT [facility] Last Admin: 06/21/25 07:21 Dose: Not Given Documented By: SANTA Non-Admin Reason: IV Running Thiamine HCl (Thiamine Hcl 100 Mg Tablet) 100 mg PO DAILY [facility] Labs 06/20/25 12:15 06/20/25 12:15 Labs: Laboratory Results - last 24 hr 06/20/25 06/20/25 12:15 12:16 MCV 84.2 MCH 27.6 MCHC 32.8 RDW 18.3 H Plt Count 475 H D MPV 8.8 L Immature Gran % (Auto) 0.8 H Neut % (Auto) 60.6 Lymph % (Auto) 28.1 Ritchie % (Auto) 9.3 Eos % (Auto) 0.5 Baso % (Auto) 0.7 Lymph # (Auto) 3.7 Ritchie # (Auto) 1.2 Eos # (Auto) 0.1 Baso # (Auto) 0.1 Abs Immat Gran (auto) 0.10 H Absolute Neuts (auto) 7.9 Absolute Nucleated RBC 0.000 Nucleated RBC % (auto) 0.0 Smear Tech's Comments VERIFIED Hold Purple Top SEE NOTE Anion Gap 18 Estim Creat Clear Calc 182.3 Estimated GFR > 60 Random Glucose 83 Calcium 8.7 Total Bilirubin 0.3 AST 31 ALT 28 Alkaline Phosphatase 60 Troponin I High Sens < 2.7 Total Protein 7.5 Albumin 4.8 Ethyl Alcohol 252 Assessment and Plan (1) Alcohol withdrawal: Status: Acute Plan Jack Burns is a 34 y/o man who presents to the ED multiple occasions with: Alcohol withdrawal syndrome, alcohol use disorder. Telemetry. CIWA. Continue phenobarbital protocol. Thiamine, folic acid and multivitamins. Patient advised to attend for alcohol consumption. Addition and social work consult. Seizure precautions. Chronic chest pain, likely secondary to GERD/erosive gastritis. Trop <2.7. CXR is normal. Continue IV pain meds and IV PPIs. Electrolyte abnormalities-secondary to alcohol intoxication being repleted to goal Leukocytosis, secondary to steroids/prednisone. No evidence of infection.Continue to monitor. Hx pericarditis. Last echo is normal. Continue prednisone and colchicine. Hx PE. Continue Eliquis. med rec still pending -resume when done Code status: Full DVT prophylaxis: On Eliquis Patient will need hospitalization for at least 2 midnights for alcohol withdrawal syndrome treatment and management with close monitoring of CIWA on phenobarbital protocol. This documentation was generated using dictation software; minor spreading or breaker off errors may be present Total time managing care of this patient today: 45 minutes. Quality Stroke Does the patient have a stroke diagnosis?: No VTE Prior VTE?: No VTE Risk Level:: Medical - moderate - high VTE Device Contraindication: Treatment Not Indicated VTE Drug Contraindication: N/A - Med Ordered
--- NOTE | 2025-06-21 07:52 | MHC.CARE ---
Spoke with [facility] Puente, informed them patient is to be medically admitted, cancel the request for detox.
--- NOTE | 2025-06-21 11:55 | MHC.RECOVRN ---
Consult received by Addiction Medicine for pt with alcohol use. Intention was to discuss recovery support and resources.? On approach pt was resting with blanket over head, respirations visualized and noted to be even and unlabored.? No signs or symptoms of acute distress or restlessness noted.? Pt did not respond to name being called and was allowed to continue to rest.? Pt is currently on a phenobarbital taper and CIWA scores noted of 6,0,0 as of midnight. ACS team to continue to follow, will revisit pt later today to complete Recovery/BH assessment, and are available as needed for ongoing support
--- NOTE | 2025-06-21 13:09 | PHA.MEDREC ---
Pharmacy Consult ? Medication Reconciliation Pharmacy has completed the medication reconciliation. Spoke to patient to confirm medication list. Patient was able to confirm that he is still taking eliquis 5 mg bid, citalopram 20 mg daily, colchicine 0.6 mg bid, gabapentin 300 mg bid, sucralfate 1 gram tidac. He is not taking naltrexone, acamprosate nor nicotine patches. He said he's on a prednisone tapering schedule, starting at 50 mg daily x14 days then decreased by 5 mg every 14 days (he started this in 2023), and his current dose is 25 mg daily but not sure how many days he has been on this dose. Last dose of medications was 3 days ago 06/18/25.
[2025-06-21] MEDS: 0.9 % Sodium Chloride Flush 3 ML SYRINGE IVFLUSH (16:14)
--- NOTE | 2025-06-21 16:26 | MHC.CM.PN ---
CM ATTEMPTED TO MEET WITH PT WHO WAS SLEEPING CM TO REVISIT
--- NOTE | 2025-06-21 17:58 | MHC.RECOVRN ---
Consult received by Addiction Medicine for pt with AUD.? Recovery/BH assessment complete. Please see for additional details Pt was counseled on specific harm-reduction strategies including setting a personal limit of no more than 1-2 drinks per occasion, alternating alcohol with water, pacing intake, and eating food prior to and during drinking. Provided pt with written resources including information on inpatient and outpatient treatment, SINDI, harm reduction, recovery coaching, and pathways to recovery.?? Pt accepted referrals for recovery coaching and CSS placement as well Naltrexone for SINDI which will be discussed with Addiction Provider.? Pt was provided TWs contact information should questions or concerns arise.? ACS team to revisit pt in the morning to discuss initiation of SINDI.?
[2025-06-21 18:03] LABS: Troponin-I High Sensitivity < 2.7 ng/L (<3.5-35.0)
[2025-06-22] VITALS (10 sets, daily range): BP systolic 120–139; BP diastolic 74–90; PULSE 62–80; RESP 14–20; TEMP 36.3–36.8; O2SAT 96–98
[2025-06-22] MEDS: 0.9 % Sodium Chloride Flush 3 ML SYRINGE IVFLUSH ×3 (07:59→21:18)
[2025-06-22 08:37] LABS: Hematocrit 35.0 % (42.0-52.0); Hemoglobin 11.4 g/dl (14.0-18.0); Mean Corpuscular HGB Conc 32.6 g/dl (31.0-36.0); Mean Corpuscular Hemoglobin 28.0 pg (27.0-33.0); Mean Corpuscular Volume 86.0 fL (80.0-98.0); NRBC Abs Auto 0.000 X10*3/uL (0.0-0.012); NRBC Pct Auto 0.0 /100WBC (0.0-0.2); Platelet Count 362 X10*3/uL (160-400); Red Blood Count 4.07 X10*6/uL (4.60-5.80); White Blood Count 13.4 X10*3/uL (4.8-10.8)
[2025-06-22 08:58] LABS: Anion Gap 12 (12-20); Blood Urea Nitrogen 7 mg/dL (9-16); Calcium 8.7 mg/dL (8.4-10.2); Carbon Dioxide 23 mmol/L (22-29); Chloride 106 mmol/L (96-108); Creatinine Clr Calc Pharmacy 170.9; Estimated Glomerular Filt Rate > 60; Magnesium 1.8 mg/dL (1.6-2.6); Potassium 3.5 mmol/L (3.3-5.1); Sodium 137 mmol/L (135-145)
--- NOTE | 2025-06-22 09:55 | MHC.RECOVRN ---
Addendum entered by Pebbles Flores RN 06/22/25 14:22: Pt decided he is not interested in CSS placement at this time Original Note: TW follow-up with pt in 469-1 for ongoing support. Pt was pleasant, enagaged, goal orientied, and expressed appreciation of ongoing support. Pt reports feeling better and states w/d symptoms are minimal and are being managed w/ medication. Consult to [facility] sent. Appt for intake to be scheduled during business hours. Referral sent to [facility] as requested. Pt states he will be making calls in the morning to initiate intake appt for IOP. He denies any questions or concerns at this time. ACS team available as needed for ongoing support.
--- NOTE | 2025-06-22 15:08 | P.PNIM_ITS ---
Subjective Subjective Date of Service: 06/22/25 Interval History: Continues to complain of pleuritic chest pain with deep inspiration Complains of slight headache, some increased anxiety and nausea but no vomiting Also has some numbness and tingling in fingers Denies auditory or visual hallucinations No abdominal pain Denies SI Review of Systems Review of Systems: Yes all other systems are reviewed and are negative Physical Exam 2 Exam: Exam: General: AOx3, no acute distress Resp: CTA bilaterally CVS: S1, S2, RRR GI: +BS, NT, no distention Skin: Warm, dry Neuro: Cranial nerves II-XII grossly intact bilaterally. Motor grossly intact bilaterally Extremities: No edema Psych: Appropriate affect Vital Signs: Vital Signs: Last Vital Signs Temp 97.8 F 06/22/25 10:56 Pulse 80 06/22/25 10:56 Resp 20 06/22/25 10:56 BP 120/74 06/22/25 10:56 Pulse Ox 98 06/22/25 10:56 O2 Del Method Room Air 06/22/25 10:56 BMI result Body Mass Index 30.1 Objective Data Active Medications Acetaminophen (Acetaminophen 325 Mg Tablet) 650 mg PO Q6H PRN PRN Reason: Pain, Mild 1-3,fever,headache Last Admin: 06/21/25 17:49 Dose: 650 mg Documented By: ESTUARDO Apixaban (Apixaban 5 Mg Tablet) 5 mg PO BID [facility] Last Admin: 06/22/25 07:59 Dose: 5 mg Documented By: ESTUARDO Calcium Carbonate (Calcium Carbonate 750 Mg Tab.Chew) 750 mg PO Q4H PRN PRN Reason: Heartburn Colchicine (Colchicine 0.6 Mg Tablet) 0.6 mg PO BID [facility] Last Admin: 06/22/25 07:59 Dose: 0.6 mg Documented By: ESTUARDO Escitalopram Oxalate (Escitalopram Oxalate 10 Mg Tablet) 10 mg PO DAILY [facility] Last Admin: 06/22/25 07:59 Dose: 10 mg Documented By: ESTUARDO Folic Acid (Folic Acid 1 Mg Tablet) 1 mg PO DAILY [facility] Last Admin: 06/22/25 07:59 Dose: 1 mg Documented By: ESTUARDO Gabapentin (Gabapentin 300 Mg Capsule) 300 mg PO BID [facility] Last Admin: 06/22/25 07:59 Dose: 300 mg Documented By: ESTUARDO Hydromorphone HCl (Hydromorphone Hcl 1 Mg/Ml Syringe) 1 mg IVPUSH Q4H PRN; Protocol PRN Reason: Pain, Severe (Pain Scale 7-10) Last Admin: 06/22/25 13:38 Dose: 1 mg Documented By: ESTUARDO Magnesium Hydroxide (Milk Of Magnesia 30 Ml Oral.Susp) 30 ml PO DAILY PRN PRN Reason: Constipation Melatonin (Melatonin 3 Mg Tablet) 6 mg PO BEDTIME PRN PRN Reason: Sleep Last Admin: 06/21/25 20:04 Dose: 6 mg Documented By: INDERJIT Multivitamins/Vitamin C (Multivitamin Tablet) 1 tab PO BEDTIME [facility] Last Admin: 06/21/25 20:04 Dose: 1 tab Documented By: INDERJIT Omeprazole (Omeprazole 20 Mg Capsule.Dr) 20 mg PO BID@0630,1630 [facility] Last Admin: 06/22/25 05:46 Dose: 20 mg Documented By: INDERJIT Ondansetron HCl (Ondansetron Hcl 4 Mg/2 Ml Vial) 4 mg IVPUSH Q8H PRN PRN Reason: Nausea and Vomiting Oxcarbazepine (Oxcarbazepine 300 Mg Tablet) 300 mg PO BID [facility] Last Admin: 06/22/25 07:59 Dose: 300 mg Documented By: ESTUARDO Pharmacy Consult (Consult Rx Etoh Phenob Im/Po) 1 each MISCELLANE ONCE PRN; Protocol PRN Reason: Consult order Phenobarbital (Phenobarbital 15 Mg Tablet) 45 mg PO BID@0600,1800 [facility] Stop: 06/23/25 06:01 Last Admin: 06/22/25 05:46 Dose: 45 mg Documented By: INDERJIT Phenobarbital (Phenobarbital 15 Mg Tablet) 15 mg PO BID@0600,1800 [facility] Stop: 06/25/25 06:01 Phenobarbital (Phenobarbital 15 Mg Tablet) 15 mg PO DAILY@1800 [facility] Stop: 06/26/25 18:01 Prednisone (Prednisone 5 Mg Tablet) 25 mg PO DAILY [facility] Last Admin: 06/22/25 09:35 Dose: 25 mg Documented By: ESTUARDO Sodium Chloride (0.9 % Sodium Chloride Flush 3 Ml Syringe) 3 ml IVFLUSH QSHIFT [facility] Last Admin: 06/22/25 07:59 Dose: 3 ml Documented By: ESTUARDO Sucralfate (Sucralfate 1 Gm Tablet) 1 gm PO TIDAC [facility] Last Admin: 06/22/25 11:45 Dose: 1 gm Documented By: ESTUARDO Thiamine HCl (Thiamine Hcl 100 Mg Tablet) 100 mg PO DAILY [facility] Last Admin: 06/22/25 07:59 Dose: 100 mg Documented By: ESTUARDO Trazodone HCl (Trazodone Hcl 50 Mg Tablet) 50 mg PO BEDTIME [facility] Last Admin: 06/21/25 20:05 Dose: 50 mg Documented By: LAFLAMC Labs 06/22/25 08:14 06/22/25 08:14 Labs: Laboratory Results - last 24 hr 06/21/25 06/22/25 17:31 08:14 MCV 86.0 MCH 28.0 MCHC 32.6 RDW 17.3 H Plt Count 362 MPV 8.7 L Absolute Nucleated RBC 0.000 Nucleated RBC % (auto) 0.0 Anion Gap 12 Estim Creat Clear Calc 170.9 Estimated GFR > 60 Random Glucose 79 Calcium 8.7 Magnesium 1.8 Troponin I High Sens < 2.7 Assessment and Plan (1) Alcohol withdrawal: Status: Acute Plan Jack Burns is a 34 y/o man who presents to the ED multiple occasions with: Alcohol withdrawal syndrome, alcohol use disorder Doing well on phenobarb protocol, continue CIWA Thiamine, folic acid and multivitamins Addition medicine consult Pleuritic chest pain Ongoing for some time, worse with deep inspiration Unclear etiology: hx of PE vs hx of pericarditis vs GERD/erosive gastritis Cardiac workup negative, including serial trops <2.7, CXR is normal. Continue IV pain meds and IV PPIs. Leukocytosis Secondary to steroids/prednisone No evidence of infection, no indication for abx Hx pericarditis Last echo normal Continue prednisone and colchicine Hx PE Reports multiple PEs, at least 2, maybe 3 CTA on 05/07/2025 show small bilateral posterior lower lobe emboli Continue Eliquis Code status: Full DVT prophylaxis: On Eliquis Pt requires continued hospitalization for additional night of detox on phenobarb protolcol. Pt will require continued close monitoring of CIWA. labs, and vitals. Quality Stroke Does the patient have a stroke diagnosis?: No VTE Prior VTE?: No VTE Risk Level:: Medical - moderate - high VTE Device Contraindication: Treatment Not Indicated VTE Drug Contraindication: N/A - Med Ordered
--- NOTE | 2025-06-22 16:08 | MHC.CM.PN ---
PT REPORTS HE IS HOMELESS BUT HAS BEEN STAYING WITH A FRIEND ON AND OFF HE SAYS HE CAN STAY FOR TWO WEEKS, BUT THEN HAS TO LEAVE FOR TWO WEEKS DUE TO FRIENDS HOUSING PT SAYS HE IS NOT INTERESTED IN GOING TO A PROGRAM OR ANYTHING HE PLANS TO GET A JOB AND LOOK FOR HOUSING HE HAS A HCP ON FILE THAT IS NOT VALID HE AND HIS ARE ESTRANGED PCP: DARRICK TAY DCP: RETURN TO FRIENDS HOME AT [address] [place] [address] VIA SHUTTLE VS LYFT
[2025-06-22] MEDS: oxyCODONE HCl Immed Release 5 MG TABLET PO ×2 (17:06→21:25)
[2025-06-22 20:26] LABS: Troponin-I High Sensitivity < 2.7 ng/L (<3.5-35.0)
[2025-06-23 03:38] VITALS: BP 115/69; PULSE 55; RESP 16; TEMP 36.8; O2SAT 97
[2025-06-23 07:03] VITALS: BP 121/85; PULSE 61; RESP 18; TEMP 36.8; O2SAT 98
[2025-06-23] MEDS: 0.9 % Sodium Chloride Flush 3 ML SYRINGE IVFLUSH (08:49)
--- NOTE | 2025-06-23 09:28 | PM.DS ---
DS: Providers Provider Date of Service: 06/23/25 Date of admission: 06/21/25 02:09 Date of discharge: 06/23/25 Primary care physician: YOHANA Bryant Consults: 06/20/25 15:29 ED Recovery Team Consult Stat Comment: Reason for consultation: requesting detox 06/21/25 02:46 Addiction Medicine Provider Routine Consulting Provider: Addiction Covering Reason for consultation: alcohol abuse Has provider been notified: No 06/22/25 10:04 Consult to Comprehensive Care Routine Consulting Provider: [facility] DS: Diagnosis Discharge Diagnosis (1) Alcohol withdrawal: Status: Acute DS: Summary Hospital Course Hospital Course: From admission HPI: Date of Service: 06/21/25 Attending physician on admission: Rubina Ashby Chief Complaint: chest pain, alcohol withdrawal symptoms Jack Burns is a 34 years old man with past medical history significant for alcohol abuse, multiple visits to the hospital with chest pain, chronic pericarditis on prednisone s/p pericardiocentesis, chronic chest pain and PE on Eliquis presents to the emergency department complaining of chest pain and withdrawal symptoms including anxiety and tremulousness. HPI was difficult to obtain as the patient was not in distress due to tremulousness and pain. He said that he is homeless and is living with a friend. He drinks daily about 20 beers, last drink was today. During last hospitalization the patient left AMA. Chart review: TTE June 2025 showed normal LVEF and no obvious valvular pathology. In the ED he was found to have stable vital signs except for tachycardia. Blood workup is remarkable for leukocytosis of 13. Hemoglobin 13.4 and platelets 475. Electrolytes are normal. BUN 17 and creatinine 0.65. LFTs are normal. Troponin < 2.7. ETOH level today is 252. CXR showed no focal consolidation and cardiac silhouette is normal. ECG is consistent with sinus tachycardia, heart rate 102 beats per minute; nonspecific T-wave abnormalities. ED tx: Valium 20 mg total, phenobarbital protocol started, NS 1 L bolus, Benadryl 25 mg IV, Haldol 5 mg IV, prednisone 60 mg p.o., colchicine 0.6 mg p.o. Hospital course: Pt initially presented to the ED with active alcohol intoxication and complaining of chest pain. Pt was admitted to the hospital for acute alcohol withdrawal and started on phenobarb protocol to good effect. Patient's withdrawal symptoms were well managed and at time of discharge had maintained a low CIWA score for 24+ hours. For chest pain, patient's cardiac workup included negative serial troponins as well as nonischemic EKG. Pt was monitored on telemetry without significant events. CXR was negative for any consolidation or enlarged cardiac silhouette suggestive of pericarditis. Pt previously had echocardiogram 1 month prior that was grossly normal with preserved LVEF, no obvious valvular pathology, and no evidence of significant pericardial effusion. Pt has been noncompliant with Eliquis prior to admission for the past 4-5 days, the pt was not hypoxic, tachycardic, or tachypneic. Pt was seen and evaluated by addiction medicine and was provided with outpatient resources for both counseling and medical management, including naltrexone. A repeat echocardiogram was ordered as pt continues to complain of chronic left-sided chest pain. However, pt reports symptoms currently improved, and he would like to be discharged in order to go to a job interview. Pt was counseled on medication compliance, including taking Eliquis twice a day for PE as well as his colchicine and prednisone for pericarditis. Pt should continue all of his other home medications, and follow up with his PCP for medication management and possible outpatient workup for hypercoagulable state. According to pt, no source of as pulmonary emboli has yet to be determined. Time Attestation Discharge Coordination Time (in mins): 35 Quality: Safe Use of Opioids Does Pt have an Active Cancer Diagnosis on the Problem List?: No Quality: Stroke Does the patient have a stroke diagnosis?: No Physical Exam Exam: Exam: General: AOx3, no acute distress Resp: CTA bilaterally CVS: S1, S2, RRR GI: +BS, NT, no distention Skin: Warm, dry Neuro: Cranial nerves II-XII grossly intact bilaterally. Motor grossly intact bilaterally. No tremors noted Extremities: No edema Psych: Appropriate affect Vital Signs: Vital Signs: Last Vital Signs Temp 98.2 F 06/23/25 07:03 Pulse 61 06/23/25 07:03 Resp 18 06/23/25 07:03 BP 121/85 06/23/25 07:03 Pulse Ox 98 06/23/25 07:03 O2 Del Method Room Air 06/23/25 07:03 BMI result Body Mass Index 30.1 DS: Data Data Completed and Pending Completed studies during hospitalization [Text1]: Procedures Detoxification Services for Substance Abuse Treatment (05/07/25) Excision of Stomach, Pylorus, Via Natural or Artificial Opening Endoscopic, Diagnostic (03/03/25) Extraction of Esophagus, Via Natural or Artificial Opening Endoscopic, Diagnostic (03/03/25) Labs on day of discharge: Laboratory Results - last 24 hr 06/22/25 19:56 Hold Purple Top SEE NOTE Troponin I High Sens < 2.7 Hold Yellow Top See Note Discharge Plan Discharge Anticipated Discharge Date/Time: 06/23/25 09:15 Patient Disposition: Home, Self-Care Discharge Diagnosis: Acute alcohol withdrawal Referrals: Benny Lea PA [Primary Care Provider, Internal Medicine] - 1 Week Discharge Medications: Continued trazodone 50 mg tablet 50 mg PO BEDTIME citalopram 20 mg tablet 20 mg PO DAILY pantoprazole 40 mg tablet,delayed release (DR/EC) 40 mg PO BID@0630,1630 colchicine 0.6 mg tablet 0.6 mg PO BID Eliquis 5 mg tablet 5 mg PO BID sucralfate 1 gram tablet 1 g PO TIDAC melatonin 5 mg Tablet 5 mg PO BEDTIME PRN (Reason: Sleep) prednisone 5 mg tablet 25 mg PO DAILY Rx Instructions: 25 mg daily for 14 days oxcarbazepine 300 mg tablet 300 mg PO BID gabapentin 300 mg capsule 300 mg PO BID Discharge Orders: Discharge Order (Routine); Ordered 06/23/25 Ordered By: Tomasz Connell Activity on Discharge: As tolerated Stand Alone Forms: Patient Portal Discharge page Print Language: Vietnamese Care Plan Goals: See below Health Concerns: Alcohol use disorder Alcohol withdrawal Chest pain Pericarditis Pericardial effusion Pulmonary embolism Plan of Treatment: You initially presented to the ED with alcohol intoxication complaining of chest you were admitted for acute alcohol withdrawal and treated with phenobarb protocol to good effect. Cardiac workup for chest pain was negative, including negative serial troponins, EKG without ischemic changes, and CXR negative for any consolidation or enlarged cardiac silhouette. You were seen by addiction medicine and provided with outpatient resources for addiction counseling and management. Today you currently feel better with controlled withdrawal symptoms. You report you have a job interview and would like to be discharged. -- continue taking all of your home medications, including Eliquis twice a day. You have largely been noncompliant with Eliquis, but it is important to take as prescribed in order to treat acute pulmonary embolism as well as to prevent future clots. Follow up with PCP for continued management of Eliquis, including whether you should take long-term. You will likely also benefit from outpatient workup to evaluate for hypercoagulable state -- for chest pain, cardiac workup was negative. Last echo last month showed normal LVEF, no obvious valvular pathology, and no pericardial effusion. Follow up with PCP for continued management. Continue taking colchicine and prednisone as previously prescribed for pericarditis. -- you were strongly encouraged to abstain from alcohol use and use whatever familial, social, and community support that you can in order to maintain your sobriety. Assessment: See discharge summary
--- NOTE | 2025-06-23 09:52 | MHC.CM.PN ---
Patient has been medically cleared for dc to home today, self care via [employer].
--- NOTE | 2025-06-23 09:55 | PM.EVENT ---
Event Note Date of Service: 06/23/25 Event Note: Addiction Consult placed for patient with AUD Seen by yoga instructor-evaluation reviewed Appt scheduled at [facility] for AUD treatment follow up Rx not needed as patient filled 30DS Naltrexone on 06/16/25 Time Spent With Patient Time: Total time managing care of this patient today ____ minutes.
== END 2025-06-23 09:30 | disposition home or self-care (01) | DRG 775 ==
LOC: HO.ED 12:11 → HO.EDOVER 06-21 02:14 → HO.IMC 06-21 07:26
PROVIDERS: Student in an Organized Health Care Education/Training Program; Admitting Provider Internal Medicine; Emergency Provider Emergency Medicine; PCP Student in an Organized Health Care Education/Training Program; Visit Provider Student in an Organized Health Care Education/Training Program
DX: F10.239 Alcohol dependence with withdrawal, unspecified (principal); F10.229 Alcohol dependence with intoxication, unspecified; Y90.8 Blood alcohol level of 240 mg/100 ml or more; Z87.891 Personal history of nicotine dependence; Z86.711 Personal history of pulmonary embolism; Z79.01 Long term (current) use of anticoagulants; Z79.52 Long term (current) use of systemic steroids; Z79.899 Other long term (current) drug therapy
CPT/HCPCS: 36415; 71045; 80048; 80053; 80307; 83735; 84484; 85025; 85027; 93005; 99285; J1171; J1200; J1630; J2470; J2560; J3360; J3411; Q9957; S9485

== ENCOUNTER → 2025-06-20 11:38 | Outpatient (BNV) | payer OTHER, SELFPAY | PROVIDERS: Emergency Provider Emergency Medicine; PCP Student in an Organized Health Care Education/Training Program; Visit Provider Internal Medicine Cardiovascular Disease | DX: R94.31 Abnormal electrocardiogram [ECG] [EKG] (principal); R07.9 Chest pain, unspecified | CPT/HCPCS: 93010 ==

== ENCOUNTER → 2025-06-20 11:59 | Outpatient (BNV) | payer OTHER, SELFPAY | PROVIDERS: Emergency Provider Emergency Medicine; PCP Student in an Organized Health Care Education/Training Program; Visit Provider Radiology Diagnostic Ultrasound | DX: R06.00 Dyspnea, unspecified (principal) | CPT/HCPCS: 71045 ==

== ENCOUNTER → 2025-06-21 02:09 | Outpatient (BNV) | payer OTHER, SELFPAY | PROVIDERS: Admitting Provider Internal Medicine; Emergency Provider Emergency Medicine; PCP Student in an Organized Health Care Education/Training Program; Visit Provider Internal Medicine | DX: R07.9 Chest pain, unspecified (principal) | CPT/HCPCS: 93010 ==

== ENCOUNTER → 2025-06-21 02:09 | Outpatient (BNV) | payer OTHER, SELFPAY | PROVIDERS: Admitting Provider Internal Medicine; Emergency Provider Emergency Medicine; PCP Student in an Organized Health Care Education/Training Program; Visit Provider Internal Medicine | DX: F10.130 Alcohol abuse with withdrawal, uncomplicated (principal) | CPT/HCPCS: 99233; 99239 ==

== ENCOUNTER 2025-06-24 18:26 | Emergency (ER) | payer OTHER, SELFPAY ==
--- NOTE | 2025-06-24 | ECG_ITS ---
Test Reason : CP Blood Pressure : */* mmHG Vent. Rate : 108 BPM Atrial Rate : 108 BPM P-R Int : 158 ms QRS Dur : 80 ms QT Int : 334 ms P-R-T Axes : 31 31 30 degrees QTcB Int : 447 ms Sinus tachycardia Nonspecific T wave abnormality Abnormal ECG When compared with ECG of 22-Jun-2025 19:02, Nonspecific T wave abnormality now evident in Anterolateral leads Referred By: Generic ED Physician Electronically Signed By: DANIELLE MARION
[2025-06-24 18:34] VITALS: BP 135/100; BP 148/92; PULSE 110; PULSE 117; RESP 18; TEMP 36.6; O2SAT 96; O2SAT 97; BMI 29.6
[2025-06-24 19:04] VITALS: BP 121/85; PULSE 112; RESP 20; TEMP 36.5; O2SAT 94
[2025-06-24 19:26] LABS: MANUAL DIFF FLAG NO
[2025-06-24 19:28] LABS: Hematocrit 39.9 % (42.0-52.0); Hemoglobin 12.9 g/dl (14.0-18.0); Imm Gran Abs Auto 0.03 X10*3/uL (0.00-0.03); Imm Gran Pct Auto 0.3 % (0.0-0.4); Lymphocytes Absolute Auto 2.6 X10*3/uL (1.2-4.9); Mean Corpuscular HGB Conc 32.3 g/dl (31.0-36.0); Mean Corpuscular Hemoglobin 27.7 pg (27.0-33.0); Mean Corpuscular Volume 85.6 fL (80.0-98.0); NRBC Abs Auto 0.000 X10*3/uL (0.0-0.012); NRBC Pct Auto 0.0 /100WBC (0.0-0.2); Platelet Count 331 X10*3/uL (160-400); Red Blood Count 4.66 X10*6/uL (4.60-5.80); White Blood Count 12.0 X10*3/uL (4.8-10.8)
--- NOTE | 2025-06-24 19:28 | PC.NURSE ---
previously unable to obtain labs per staff d/t difficult stick. labs obtained at this time. upon obtaining, pt requested dilaudid. educated him that he has yet to be evaluated by a provider and labs have not been done. pt agreeable to waiting for provider. call blue within reach.
[2025-06-24 19:43] LABS: Alanine Aminotransferase 26 U/L (0-40); Albumin Level 4.5 g/dL (3.5-5.0); Alkaline Phosphatase 64 U/L (39-117); Anion Gap 19 (12-20); Aspartate Amino Transferase 26 U/L (5-37); Blood Urea Nitrogen 5 mg/dL (9-16); Calcium 8.5 mg/dL (8.4-10.2); Carbon Dioxide 24 mmol/L (22-29); Chloride 106 mmol/L (96-108); Creatinine Clr Calc Pharmacy 156.0; Estimated Glomerular Filt Rate > 60; Magnesium 2.4 mg/dL (1.6-2.6); Potassium 3.3 mmol/L (3.3-5.1); Sodium 146 mmol/L (135-145); Total Protein 7.1 g/dL (6.5-8.0)
[2025-06-24 19:51] LABS: Troponin-I High Sensitivity < 2.7 ng/L (<3.5-35.0)
--- NOTE | 2025-06-24 19:55 | PC.NURSE ---
20 g IV in left AC
--- NOTE | 2025-06-24 23:34 | ED.ALCOHOL ---
HPI - Alcohol General Chief Complaint: ETOH/Substance Use Stated Complaint: ETOH Time Seen by Provider: 06/24/25 22:09 Source: patient and EMS Mode of arrival: EMS Limitations: other History of Present Illness ED Provider: Dr. Hafsa Saini HPI narrative: Patient comes to the emergency room via ambulance. According to 911, the patient's friend called 911 because the patient was too drunk and could not take care of him. According to EMS, the patient's friend was also intoxicated. Patient arrives saying that he had chest pain that he has had for months, unchanged from previous. Related Data Home Medications ?Medication ?Instructions ?Recorded ?Confirmed apixaban 5 mg tablet (Eliquis) 5 mg PO BID 05/08/25 06/21/25 citalopram 20 mg tablet 20 mg PO DAILY 05/08/25 06/21/25 colchicine 0.6 mg tablet 0.6 mg PO BID 05/08/25 06/21/25 melatonin 5 mg tablet 5 mg PO BEDTIME PRN Sleep 05/08/25 06/21/25 pantoprazole 40 mg tablet,delayed 40 mg PO BID@0630,1630 05/08/25 06/21/25 release sucralfate 1 gram tablet 1 g PO TIDAC 05/08/25 06/21/25 trazodone 50 mg tablet 50 mg PO BEDTIME 05/08/25 06/21/25 gabapentin 300 mg capsule 300 mg PO BID 06/21/25 06/21/25 oxcarbazepine 300 mg tablet 300 mg PO BID 06/21/25 06/21/25 prednisone 5 mg tablet 25 mg PO DAILY 06/21/25 06/21/25 Allergies Allergy/AdvReac Type Severity Reaction Status Date / Time No Known Allergies Allergy Verified 06/24/25 18:35 Review of Systems Review of Systems: Constitutional : No Weight loss, No Fever, No Chills, No Night Sweats, No Fatigue, No Malaise ENT/Mouth : No Hearing loss, No Ear Pain, No Nasal Congestion, No Sinus Pain, No Hoarseness, No sore throat, No Rhinorrhea, No Swallowing Difficulty Eyes: No Eye Pain, No Swelling, No Redness, No Foreign Body, No Discharge, No Vision Changes Cardiovascular : Complaining of chronic Chest Pain, when changed, No SOB, No Dyspnea on Exertion, No Orthopnea, No Edema, No Palpitations Respiratory : No Cough, No Sputum, No Wheezing, No Smoke Exposure, No Dyspnea Gastrointestinal : No Nausea, No Vomiting, No Diarrhea, No Constipation, No abdominal Pain, No Hematochezia, No Melena Genitourinary : no irregular bleeding, No Dysuria, No Urinary Frequency, No Hematuria, No Urinary Incontinence, No Urgency, No Flank Pain, No Urinary Flow Changes, No Hesitancy Musculoskeletal : No joint pain, No Myalgias, No Joint Swelling Skin : No Skin Lesions, No rash Neuro : No Weakness, No Numbness, No Paresthesias, No Loss of Consciousness, No Dizziness, No Headache Psych : No Anxiety/Panic, No Depression, No SI/HI/AH/VH, admits to alcohol intoxication Heme/Lymph: No Bruising, No Bleeding,No Lymphadenopathy Endocrine : No Polyuria, No Polydipsia, No Temperature Intolerance PMFSH Past Medical History Medical History Dysphagia, pharyngoesophageal phase Pericarditis Pericardial effusion Alcohol use disorder, moderate, dependence MDD (major depressive disorder), recurrent episode, moderate Nausea with vomiting Alcohol use disorder Anxiety and depression History of seizure due to alcohol withdrawal ETOH abuse Surgical History History of surgery H/O endoscopy Family History Family History Other Diabetes Social History Social History Household Members: Other Household Members Other:: Friend Housing: Apartment Do you presently have visiting nurse or other home services: No Alcohol intake: current Alcohol intake frequency: 3 or more drinks per day Alcohol type: beer Comment: patient refusing alarms Patient Tobacco Use Status: Former Tobacco user Tobacco use type: Cigarette Smoked in Last 30 Days: No e-Cigarette/Vaping Use: Never Used Second Hand Smoke Exposure: No Use of substances other than those prescribed or required for medical reasons: No Substance Use Type: Marijuana Advance Directives: Yes Advance Directives on File: Yes Advance Directives Date on File: 11/07/22 service: No Current occupational status: employed Physical Exam ED Exam Exam: Appearance: Alert. Oriented X3. No acute distress. Well-appearing, patient is clinically sober, coherent, ambulatory without difficulty. Eyes: Pupils equal, round and reactive to light. ENT: Pharynx normal. Neck: Normal inspection. Neck supple. No lymph nodes noted. No crepitus CVS: Normal heart rate and rhythm. Pulses normal. Normal S1 and S2 Respiratory: No respiratory distress. Breath sounds normal. No Wheezing. No rales Abdomen: Soft and nontender. No rigidity. No distention. Skin: Skin warm and dry. Normal skin color. Normal skin turgor. Extremities: No lower extremity edema. No Lacerations. No Rash Neuro: Oriented X 3. No motor deficit. No sensory deficit. Moving all extremities. No slurred speech. CN 2 through 12 grossly intact Psych: calm, cooperative, normal affect Vital Signs: Vital Signs - 24 hr 06/24/25 18:34 06/24/25 19:04 06/24/25 23:35 Temperature 97.9 F 97.7 F 97.9 F Pulse Rate 117 H 112 H 100 Respiratory Rate 18 20 18 Blood Pressure 135/100 H 121/85 126/87 Pulse Oximetry 96 94 95 Oxygen Delivery Method Room Air Room Air Room Air BMI result Body Mass Index 29.6 Course Course Course Narrative: Patient comes in the emergency room for alcohol intoxication. Patient's friend could not take care of him since both of a more significantly drunk. Patient reporting unchanged chronic pain in the chest. Medical Decision Making Medical Decision Making [facility] Narrative: My interpretation of the EKG: Sinus tachycardic, heart rate 108, no ST segment depression or elevation, no T-wave inversion, QTC 447 My interpretation of labs: No significant abnormality in patient's hematology, chemistry shows a sodium of 146, slightly elevated, normal LFTs, troponin negative Patient has been here multiple times, complaining of chest pain. Patient is known to have history of a pericardial effusion. Patient also known to have pulmonary embolisms. Seems that patient is not compliant with his Eliquis. Patient was seen 4 days ago for similar circumstances. Patient is awake, alert and oriented x3, coherent, ambulatory. Patient stating that if he does not get the pain medications that he is requesting, he will leave. I discussed with the patient that in the meantime while we do a further workup, he will get aspirin and colchicine and we will be treated as a cardiac patient. The patient declined, states that that does not work and requested to be discharged. I reviewed patient's previous CT scans, from 05/07/2025, patient had small bilateral posterior lower lobe emboli. Unfortunately, patient known to be noncompliant with his medication. Patient did not want to wait for a D-dimer, chest x-ray, bedside ultrasound, and possibly a CT scan Patient was found to have a pericardial infusion in 2023, subsequent studies have not show any significant recommendation of pericardial effusion. Patient was also offered detox for alcohol, the patient declined detox Differential Diagnosis Differential Diagnoses: The differential diagnosis associated with the presentation includes (Pericardial effusion, pulmonary embolism, pleurisy, costochondritis, musculoskeletal chest pain) Admission/Observation Consideration of admission/observation: Escalation of care including admission/observation considered (Given patient's past medical history, further workup and admission was considered) Lab Data MDM Lab Attestation statement: I reviewed the patient's lab results. 06/24/25 19:22 06/24/25 19:22 Labs: Lab Results 06/24/25 Range/Units 19:22 WBC 12.0 H (4.8-10.8) X10*3/uL RBC 4.66 (4.60-5.80) X10*6/uL Hgb 12.9 L (14.0-18.0) g/dl Hct 39.9 L (42.0-52.0) % MCV 85.6 (80.0-98.0) fL MCH 27.7 (27.0-33.0) pg MCHC 32.3 (31.0-36.0) g/dl RDW 18.4 H (11.0-16.0) % Plt Count 331 (160-400) X10*3/uL MPV 8.4 L (9.4-12.4) fL Immature Gran % (Auto) 0.3 (0.0-0.4) % Neut % (Auto) 64.9 (45-73) % Lymph % (Auto) 21.6 (20-40) % [place] % (Auto) 12.4 H (2-11) % Eos % (Auto) 0.4 (0-4) % Baso % (Auto) 0.4 (0-2) % Lymph # (Auto) 2.6 (1.2-4.9) X10*3/uL [place] # (Auto) 1.5 H (0.1-1.2) X10*3/uL Eos # (Auto) 0.1 (0.0-0.4) X10*3/uL Baso # (Auto) 0.1 (0.0-0.2) X10*3/uL Abs Immat Gran (auto) 0.03 (0.00-0.03) X10*3/uL Absolute Neuts (auto) 7.8 (2.0-8.3) x10*3/uL Absolute Nucleated RBC 0.000 (0.0-0.012) X10*3/uL Nucleated RBC % (auto) 0.0 (0.0-0.2) /100WBC Sodium 146 H (135-145) mmol/L Potassium 3.3 (3.3-5.1) mmol/L Chloride 106 (96-108) mmol/L Carbon Dioxide 24 (22-29) mmol/L Anion Gap 19 (12-20) BUN 5 L (9-16) mg/dL Creatinine 0.75 (0.5-1.4) mg/dL Estim Creat Clear Calc 156.0 Estimated GFR > 60 Random Glucose 98 (60-115) mg/dL Calcium 8.5 (8.4-10.2) mg/dL Magnesium 2.4 (1.6-2.6) mg/dL Total Bilirubin 0.1 (0.0-1.0) mg/dL AST 26 (5-37) U/L ALT 26 (0-40) U/L Alkaline Phosphatase 64 (39-117) U/L Troponin I High Sens < 2.7 (<3.5-35.0) ng/L Total Protein 7.1 (6.5-8.0) g/dL Albumin 4.5 (3.5-5.0) g/dL Discharge Plan Discharge Clinical Impression: Alcohol intoxication, Chest pain Patient Disposition: Left Against Medical Advice Instructions: Abuse of Alcohol (ED) Additional Instructions: Please follow-up with your primary care physician tomorrow. If you have any worsening or new symptoms, please return to the emergency room or call 911 Please be compliant with your medications, especially Eliquis. Alcohol use disorder You were seen in the Emergency Department today for treatment of alcohol use disorder.? You may have been given medications to help with your withdrawal symptoms.? Please do not drink alcohol with them. This is very dangerous and can cause respiratory depression or other adverse reactions depending on the medication. If you would like to cut down or stop your alcohol use please consider calling our outpatient Addiction Treatment office:? [facility] (M-F 9a-5p) [address] [place] [address] [address] You have also been given a list of treatment providers in the area that can assist as well.? If you experience seizures, vomiting blood, black stools, falls, severe headache, chest pain, fevers, trouble breathing, hallucinations or any other concerns you need to call 911 or seek immediate care. Please stay hydrated. Prescriptions: No Action trazodone 50 mg tablet 50 mg PO BEDTIME citalopram 20 mg tablet 20 mg PO DAILY pantoprazole 40 mg tablet,delayed release (DR/EC) 40 mg PO BID@0630,1630 colchicine 0.6 mg tablet 0.6 mg PO BID Eliquis 5 mg tablet 5 mg PO BID sucralfate 1 gram tablet 1 g PO TIDAC melatonin 5 mg Tablet 5 mg PO BEDTIME PRN (Reason: Sleep) prednisone 5 mg tablet 25 mg PO DAILY Rx Instructions: 25 mg daily for 14 days oxcarbazepine 300 mg tablet 300 mg PO BID gabapentin 300 mg capsule 300 mg PO BID Print Language: Angolan
[2025-06-24 23:35] VITALS: BP 126/87; PULSE 100; RESP 18; TEMP 36.6; O2SAT 95
--- NOTE | 2025-06-24 23:37 | PC.NURSE ---
Pt requesting IV medication for chest pain, pt educated standard of care is medicating with aspirin. Refused the aspirin. Trop and EKG neg. Pt stating he was going to leave, provider aware. Pt refusing detox services at this time. IV removed before pt left department. Pt left without D/C paperwork.
[2025-06-25 00:01] VITALS: BP 126/87; PULSE 100; RESP 18; TEMP 36.6; O2SAT 95
--- OUTSIDE RECORDS SUMMARY | 2025-06-25 13:47 | XMS_ITS | Clinical Summary ---
Author Organization [facility] Address [address] [address] Phone Care Team Providers Care Online Trader Name Role Phone Wali Long HOT ROLL LAMINATOR Primary Care Provider + Allergies Active Allergy [...] VACCINE (#1) 2025 9, 08/20/2018 COVID-19 VACCINE (2024-2 6 season) 2025 SMOKING STATUS SCREENING (On ce [...] Medical Devices Not on file Insurance [facility] [employer] [facility] DIRECT HEALTH SAFETY NET PARTIAL Member Subscriber Plan / Payer (Ef fective 2021-Present) Name:Jack Burns Relation to Subscriber:Self Name:GrantJack amin Payer ID:Not on file Group ID:Not on file Type:Medicaid Address: [place] [id number] [employer] [facility] SAFETY NET PARTIAL [employer] NET PARTIAL [employer] [facility] SAFETY NET PARTIAL [place] [employer] [place] [address] [facility] [employer] DIRECT [facility] [place] [address] [facility] DIRECT HEALTH SAFETY NET PARTIAL [facility] DIRECT [facility] SAFETY NET PARTIAL [facility] NET PARTIAL Care Teams Online Trader Relationship Specialty Start Date End Date Wali Long NP [address] [place] [id number] PCP - General Family Medicine 11/11/21 Additional Source Comments The information contained in this document represents components of the legal health record. It is not the complete legal health record.[facility]
--- OUTSIDE RECORDS SUMMARY | 2025-06-25 13:47 | XMS_ITS | Encounter Summary ---
Author Organization [facility] Address [address] [place] [phone] Phone Care Team Providers Care Tradeshow Worker Name Role Phone Noé Huynh INSIDE OUTSIDE SALES REPRESENTATIVE Primary Care Provider + [phone] Wali Long INSIDE OUTSIDE SALES REPRESENTATIVE Primary Care Provider + Reason for Referral [...] Expiration Date Visits Re quested Visits Authorized [id number] Closed 10/11/2021 10/11/2022 1 1 Encounter Details Date Type Department Care Team (Latest Contact Info) Description 10/11/2021 Transcribe Orders Virtual Department [address] [place] [address] Susana Rollins PA [address] [place] [address] Vomiting, intractability of vomiting not specified, presence [...] type documented in this encounter Care Teams Tradeshow Worker Relationship Specialty Start Date End Date Noé Huynh NP [email or web address] PCP - General Family Medicine 09/17/19 Wali Long NP [address] [place] [address] [place] [id number] PCP - General Family Medicine 11/11/21 documented as of this encounter Additional Source Comments The information contained in this document represents components of the legal health record. It is not the complete legal health record.[facility]
--- OUTSIDE RECORDS SUMMARY | 2025-06-25 13:47 | XMS_ITS | Encounter Summary ---
Author Organization [facility] Address [address] [address] Phone Care Team Providers Care Cost Engineer Name Role Phone Noé Huynh ACIDIZER HELPER Primary Care Provider [phone] Wali Long ACIDIZER HELPER Primary Care Provider + Reason for Referral * MRI/CAT Scan - Closed Specialty Diagnoses / Procedures Referred By Contac t Referred To Contact Radiology Diagnoses LLQ pain Bloating Nausea Procedures CT Abdomen/Pelvis Susana Rollins PA Phone: tel: fax: Referral ID Status Reason Start Date Expiration Date Visits Re quested Visits Authorized [id number] Closed 09/19/2019 12/18/2019 1 1 Encounter Details Date Type Department Care Team (Latest Contact Info) Description 09/19/2019 Transcribe Orders Virtual Department [address] [place] [address] Susana Rollins PA [address] [place] [id number] Bloating (Primary Dx); LLQ pain; Nausea Social [...] alone documented in this encounter Care Teams Cost Engineer Relationship Specialty Start Date End Date Noé Huynh NP [email or web address] PCP - General Family Medicine 09/17/19 Wali Long NP [facility] [place] [address] PCP - General Family Medicine 11/11/21 documented as of this encounter Additional Source Comments The information contained in this document represents components of the legal health record. It is not the complete legal health record.[facility]
--- OUTSIDE RECORDS SUMMARY | 2025-06-25 13:47 | XMS_ITS | Encounter Summary ---
Author Organization [facility] Address [address] [place] [address] Phone Care Team Providers Care Heat Curer Name Role Phone Noé Huynh FAMILY LAW PARALEGAL Primary Care Provider [phone] Wali Long FAMILY LAW PARALEGAL Primary Care Provider + Encounter Details Date Type Department Care Team (Latest Contact Info) Description 09/17/2019 Transcribe Orders [facility] [address] [address] Susana Rollins PA [address] [place] [address] Abdominal pain, left lower quadrant (Primary Dx); [...] EST) LIPASE 18 16 - 63 U/L [facility] Blood 09/17/2019 10:1 3 AM EST 09/17/2019 10:17 AM EST us Susana MULLER LAB BLOOD BKR ORDERABLES Fi nal Result [address] [address] * Comprehensive metabolic panel (09/17/2019 10:13 AM EST) SODIUM 140 133 - 146 mmol/L [facility] POTASSIUM 4.3 3.3 - 5.1 mmol/L [facility] CHLORIDE 104 96 - 108 mmol/L [facility] CO2 27 21 - 35 mmol/L [facility] BUN 6 6 - 19 mg/dL [facility] CREATININE 0.80 0.5 - 1.5 mg/dL [facility] GLUCOSE 72 70 - 99 mg/dL [facility] ALBUMIN 4.4 3.9 - 4.8 g/dL [facility] TOTAL PROTEIN 7.0 6.5 - 8.0 g/dL [facility] CALCIUM 9.2 8.4 - 10.3 mg/dL [facility] ALKALINE PHOSPHATASE 56 39 - 117 U/L [facility] TOTAL BILIRUBIN 0.4 0.0 - 1.2 mg/dL [facility] AST 26 0 - 37 U/L [facility] ALT 15 0 - 40 U/L [facility] GLOBULIN 2.6 1 - 4.8 g/dL [facility] EGFR >120 >59 mL/min/1.7 3m2 [facility] Comment:If patient is black, multiply result by 1.159. Estimated glomerular filtration rate calculated using the CKD-EPI equation. ANION GAP 13 10 - 20 mmol/L [facility] Blood 09/17/2019 10:1 3 AM EST 09/17/2019 10:17 AM EST us Susana MULLER LAB BLOOD BKR ORDERABLES Fi nal Result [address] [address] * CBC (09/17/2019 10:13 AM EST) WBC 5.94 4.00 - 11.00 K/uL [facility] Comment:Note Reference Range updates to all CBC and Differential results. RBC 4.91 4.48 - 5.88 M/uL [facility] HGB 14.8 13.4 - 17.5 g/dL [facility] Comment:Note updated Referen ce Ranges for all CBC and Differential results. HCT 43.8 38.0 - 51.0 % [facility] PLT 377 140 - 430 K/uL [facility] MCV 89.2 78.0 - 97.0 fL [facility] MCH 30.1 25.0 - 33.0 pg [facility] MCHC 33.8 32.0 - 36.0 g/dL [facility] RDW 12.9 11.0 - 15.0 % [facility] MPV 9.4 8.4 - 12.8 fl [facility] NRBC 0.00 0 /100 WBCs [facility] ABSOLUTE NRBC 0.00 0 K/uL [facility] Blood 09/17/2019 10:1 3 AM EST 09/17/2019 10:17 AM EST Susana MULLER LAB BLOOD BKR ORDERABLES Fi nal Result [facility] [address] [place] [address] documented in this encounter Visit Diagnoses Diagnosis Abdominal pain, left lower quadrant- Primary Bloating Flatulence, eructation, and gas pain Nausea Nausea alone documented in this encounter Care Teams Heat Curer Relationship Specialty Start Date End Date Noé Huynh NP [email or web address] PCP - General Family Medicine 09/17/19 Wali Long NP [facility] [place] [address] PCP - General Family Medicine 11/11/21 documented as of this encounter Additional Source Comments The information contained in this document represents components of the legal health record. It is not the complete legal health record.[facility]
--- OUTSIDE RECORDS SUMMARY | 2025-06-25 13:48 | XMS_ITS | Encounter Summary ---
Author Organization [facility] Address [address] [place] [address] Phone Care Team Providers Care Tube Heater Name Role Phone Noé Huynh CHEMICAL CHECKER Primary Care Provider [phone] Wali Long CHEMICAL CHECKER Primary Care Provider + Encounter Details Date Type Department Care Team (Late st Contact Info) Description 05/15/2021 Procedure Pass [facility], Ct Scan - [address] [address] Social History Tobacco Use Types Packs/Day Years [...] on filedocumented in this encounter Care Teams Tube Heater Relationship Specialty Start Date End Date Noé Huynh CHEMICAL CHECKER [email or web address] PCP - General Family Medicine 09/17/19 Wali Long, JUAN [address] [facility] [place] [place] [address] PCP - General Family Medicine 11/11/21 documented as of this encounter Additional Source Comments The information contained in this document represents components of the legal health record. It is not the complete legal health record.[facility]
--- OUTSIDE RECORDS SUMMARY | 2025-06-25 13:48 | XMS_ITS | Encounter Summary ---
Author Organization [facility] Address [address] [place] [phone] Phone Care Team Providers Care Student Services Dean Name Role Phone Noé Huynh CREDIT REPORTING CLERK Primary Care Provider [phone] Wali Long CREDIT REPORTING CLERK Primary Care Provider + Encounter Details Date Type Department Care Team (Late st Contact Info) Description 09/09/2021 Procedure Pass [facility] Endoscopy Admitting Dept Virtual Department [address] [place] [address] Social History Tobacco Use Types Packs/Day Years [...] on filedocumented in this encounter Care Teams Student Services Dean Relationship Specialty Start Date End Date Noé Huynh CREDIT REPORTING CLERK [email or web address] PCP - General Family Medicine 09/17/19 Wali Long NP [address] [facility] [place] [address] PCP - General Family Medicine 11/11/21 documented as of this encounter Additional Source Comments The information contained in this document represents components of the legal health record. It is not the complete legal health record.[facility]
--- OUTSIDE RECORDS SUMMARY | 2025-06-25 13:48 | XMS_ITS | Encounter Summary ---
Author Organization [facility] Address [address] [place] [address] Phone Care Team Providers Care Machining Department Supervisor Name Role Phone Noé Huynh SNOW BLOWER Primary Care Provider [phone] Wali Long SNOW BLOWER Primary Care Provider + Encounter Details Date Type Department Care Team (Late st Contact Info) Description 09/30/2019 Procedure Pass [facility] Endoscopy Admitting Dept Virtual Department [address] [place] [address] Social History Tobacco Use Types Packs/Day Years [...] on filedocumented in this encounter Care Teams Machining Department Supervisor Relationship Specialty Start Date End Date Noé Huynh SNOW BLOWER [email or web address] PCP - General Family Medicine 09/17/19 Wali Long NP [address] [facility] [place] [address] PCP - General Family Medicine 11/11/21 documented as of this encounter Additional Source Comments The information contained in this document represents components of the legal health record. It is not the complete legal health record.[facility]
== END 2025-06-25 00:02 | disposition left against medical advice (07) ==
PROVIDERS: Emergency Provider Emergency Medicine
DX: F10.129 Alcohol abuse with intoxication, unspecified (principal); Y90.9 Presence of alcohol in blood, level not specified; R07.9 Chest pain, unspecified; I26.99 Other pulmonary embolism without acute cor pulmonale; Z91.148 Patient's other noncompliance with medication regimen for other reason
CPT/HCPCS: 36415; 80053; 83735; 84484; 85025; 93005; 99283; 99285

== ENCOUNTER → 2025-06-24 18:47 | Outpatient (BNV) | payer OTHER, SELFPAY | PROVIDERS: Emergency Provider Emergency Medicine; Visit Provider Internal Medicine | DX: R00.0 Tachycardia, unspecified (principal) | CPT/HCPCS: 93010 ==

== ENCOUNTER 2025-07-18 13:34 | Emergency (ER) | payer OTHER, SELFPAY ==
--- NOTE | ~2025-07-18 | XR_ITS ---
EXAMINATION: XR CHEST CLINICAL INFORMATION: chest pain COMPARISON: 06/20/2025 TECHNIQUE: Frontal view of the chest was obtained. FINDINGS: Cardiac size is mildly prominent. Lungs are clear. There is no sign of pneumothorax or pleural effusion. XR/XR chest 1V IMPRESSION: No acute disease. Borderline cardiomegaly. Electronically signed by: Edi Correa MD 07/18/2025 02:40 PM [facility]
[2025-07-18 13:40] VITALS: BP 141/108; PULSE 122; O2SAT 97
--- NOTE | 2025-07-18 13:40 | ECG_ITS ---
Test Reason : cp Blood Pressure : */* mmHG Vent. Rate : 128 BPM Atrial Rate : 128 BPM P-R Int : 154 ms QRS Dur : 78 ms QT Int : 294 ms P-R-T Axes : 39 32 37 degrees QTcB Int : 429 ms Sinus tachycardia Nonspecific T wave abnormality Abnormal ECG When compared with ECG of 24-Jun-2025 18:47, Nonspecific T wave abnormality, improved in Anterolateral leads Referred By: Generic ED Physician Electronically Signed By: CHAO RUIZ MD
--- NOTE | 2025-07-18 13:51 | ED.GENADULT ---
HPI - General Adult General Chief complaint: Chest Pain Stated complaint: CHEST PAIN FOR 3 DAYS Time Seen by Provider: 07/18/25 13:40 History of Present Illness ED Provider: Mark Franks MD HPI narrative: 34-year-old male with chronic chest pain intermittently and chronic recurrent pericarditis with pericardial effusions previous pericardial window and/or drains at [facility] most recently several months ago. He has been drinking in the past few days and not been taking his apixaban which he is on for PE unclear when he was last diagnosed with pulmonary emboli. . He endorses poor p.o. intake feeling dehydrated he is not depressed or suicidal. No GI bleeding no vomiting pain is sharp sometimes radiating up the back of the neck on the left side Related Data Home Medications ?Medication ?Instructions ?Recorded ?Confirmed apixaban 5 mg tablet (Eliquis) 5 mg PO BID 05/08/25 06/21/25 citalopram 20 mg tablet 20 mg PO DAILY 05/08/25 06/21/25 colchicine 0.6 mg tablet 0.6 mg PO BID 05/08/25 06/21/25 melatonin 5 mg tablet 5 mg PO BEDTIME PRN Sleep 05/08/25 06/21/25 pantoprazole 40 mg tablet,delayed 40 mg PO BID@0630,1630 05/08/25 06/21/25 release sucralfate 1 gram tablet 1 g PO TIDAC 05/08/25 06/21/25 trazodone 50 mg tablet 50 mg PO BEDTIME 05/08/25 06/21/25 gabapentin 300 mg capsule 300 mg PO BID 06/21/25 06/21/25 oxcarbazepine 300 mg tablet 300 mg PO BID 06/21/25 06/21/25 prednisone 5 mg tablet 25 mg PO DAILY 06/21/25 06/21/25 Previous Rx's ?Medication ?Instructions ?Recorded apixaban 5 mg tablet (Eliquis) 5 mg PO BID 14 days #28 tabs 07/18/25 colchicine 0.6 mg capsule 0.6 mg PO DAILY 30 days #30 caps 07/18/25 indomethacin 50 mg capsule 50 mg PO BID 1 week #14 caps 07/18/25 Allergies Allergy/AdvReac Type Severity Reaction Status Date / Time No Known Allergies Allergy Verified 07/18/25 14:16 [facility] Past Medical History Medical History Dysphagia, pharyngoesophageal phase Pericarditis Pericardial effusion Alcohol use disorder, moderate, dependence MDD (major depressive disorder), recurrent episode, moderate Nausea with vomiting Alcohol use disorder Anxiety and depression History of seizure due to alcohol withdrawal ETOH abuse Surgical History History of surgery H/O endoscopy Family History Family History Other Diabetes Social History Social History Household Members: Other Household Members Other:: Friend Housing: Apartment Do you presently have visiting nurse or other home services: No Alcohol intake: current Alcohol intake frequency: 3 or more drinks per day Alcohol type: beer Comment: patient refusing alarms Patient Tobacco Use Status: Former Tobacco user Tobacco use type: Cigarette e-Cigarette/Vaping Use: Never Used Second Hand Smoke Exposure: No Use of substances other than those prescribed or required for medical reasons: Unknown Substance Use Type: Marijuana Advance Directives: Yes Advance Directives on File: Yes Advance Directives Date on File: 11/07/22 service: No Current occupational status: employed Physical Exam ED Exam Exam: EXAM: Gen: Alert, awake, appears uncomfortable, mildly dry looking no distress Head: Atraumatic Eyes: Anicteric, Normal conjunctiva. ENT: Moist mucosa, no pallor. ? Neck: Supple. Skin: ?No observable rash or bruising on exposed or examined skin Respiratory: Breathing comfortably, No distress.Clear to auscultation bilaterally, symmetric chest expansion, No wheeze, rales, ronchi. Cardiovascular: Rapid but regular rate. No murmurs or rub. Well perfused periphery, warm extremities. No edema. ? Abdominal: No focal tenderness. Soft, no objective distension. No palpable masses or obvious organomegaly. ?No guarding, no rebound tenderness or other peritoneal findings. : No flank tenderness. Neuro: Alert. Gross movement of all extremities intact. ? Psych: Calm. Cooperative. MSK: No grossly visible deformity. Vital signs: See flowsheet Vital Signs: Vital Signs - 24 hr 07/18/25 14:14 07/18/25 18:08 Temperature 98.1 F 97.5 F Pulse Rate 115 H 91 Respiratory Rate 18 18 Blood Pressure 155/90 H 123/92 H Pulse Oximetry 95 Oxygen Delivery Method Room Air Room Air BMI result Body Mass Index 29.9 Course Course Course Narrative: Rapid medical examination performed in triage by Brigette Hays PA-C: Patient is a 34 year old assigned male at presenting to the emergency department with chest pain. Patient states he has been having chest pain and he has been for awhile since he has pericarditis. Detailed physical exam and review of systems are deferred to the [facility] shift lead. EKG, labs, imaging, swabs ordered. Patient placed back in the waiting room pending room availability and results. Reevaluation(s) Reevaluation #1: 8:00 PM 07/18/2025 (Dr. Mark Franks): The patient asked to see me. He tells me he is in 10/10 pain though intermittently he has been sleeping and when he wakes up he notifies the nurse he is in 10/10 pain in the left chest. He is repeatedly asking me for Dilaudid says this is the ?only thing that helps me?. I explained to him the pathophysiology of his likely cause of his pain which is probably pericarditis or musculoskeletal pain and that I did not think he would benefit from hydromorphone. He tells me he ran out of his apixaban now and I have informed him I will prescribe him a new round as well as colchicine and indomethacin which has been prescribed. He tells me ?if you are not willing to help me I am going to leave and drink ?. Tried to steer him away from this bad decision but he demanded to leave. The patient got up himself and did allow for the nurse to remove his IV but would not wait for discharge paperwork. You walked with a steady gait and during our conversations had clear speech and I felt had the capacity to make this bad decision. I will send a prescription to his pharmacy for apixaban if he does decide to pick it up which I advised him to. Medications Administered Discontinued Medications Generic Name Dose Route Start Last Admin Trade Name Freq PRN Reason Stop Dose Admin Apixaban 5 mg 07/18/25 17:21 07/18/25 17:55 Apixaban 5 Mg Tablet PO 07/18/25 17:22 5 mg ONCE ONE Administration Colchicine 1.2 mg 07/18/25 15:43 07/18/25 17:55 Colchicine 0.6 Mg Tablet PO 07/18/25 15:44 1.2 mg ONCE ONE Administration Lactated Ringer's 1,000 mls @ 999 mls/hr 07/18/25 15:45 07/18/25 19:23 Lr IV 07/18/25 17:45 Infused .Q1H1M EL Infusion Ketorolac Tromethamine 30 mg 07/18/25 15:43 07/18/25 16:36 Ketorolac Tromethamine 30 Mg/Ml Vial IVPUSH 07/18/25 15:44 30 mg ONCE ONE Administration Pantoprazole Sodium 40 mg 07/18/25 15:43 07/18/25 16:36 Pantoprazole Sodium 40 Mg/10 Ml Vial IVPUSH 07/18/25 15:44 40 mg ONCE ONE Administration Thiamine HCl 100 mg 07/18/25 15:43 07/18/25 16:38 Thiamine Hcl 100 Mg Tablet PO 07/18/25 15:44 100 mg ONCE ONE Administration Procedures Procedure Narrative Procedure Narrative: EMERGENCY ULTRASOUND INTERPRETATION-Limited Echocardiography [This study was ordered, performed, and interpreted by myself. The study reveals: Impression: NORMAL LV FUNCTION, NO RV DYSFUNCTION, small pericardial effusion no tamponade [Emergent Cardiac for Indication: Views Used: PLAX, PSSA, A4, SX, IVC Pericardial Effusion/Tamponade Findings: Small no tamponade RV Dilation (> LV diam in 4ch apical): NONE Global LV Fxn: NORMAL Performed by: MD Golden Images were stored CPT:91911] Medical Decision Making Medical Decision Making MDM Narrative: Medical Decision Makin-year-old male with ETOH use disorder chronic pericarditis/pericardial effusion with drain in the past with sharp intermittent chest pain some radiation to the back of the left neck. ETOH actively intoxicated not ill or toxic. No hypotension. Trace pericardial effusion with no tamponade physiology otherwise reassuring echo. Mildly tachycardic but could be from dehydration. We will empirically treat for pericarditis and dehydration. Strongly encouraged patient to restart apixaban. PE on the differential. No RV strain on echo no hypotension if he restarts apixaban today no therapeutic changes would be made for we identification of PE so I will avoid CT at this time Preliminary Favored Differential Diagnosis: Pericarditis, pericardial effusion, PE less likely, electrolyte derangement, dehydration, alcohol use disorder among additional considered etiologies Testing Interpreted Independently: ?ECG sinus tachycardia subtle ST elevation precordium no ST elevation VT criteria no RV strain Radiology or Lab testing Results Reviewed: ?See below for details Consults: ?See below for details Independent Historians/External Chart Reviews: ?See below for details Social Determinants of Health Impacting MDM/Planning: ?See below for details Lab Data 07/18/25 13:54 07/18/25 13:54 Labs: Lab Results 07/18/25 Range/Units 13:54 WBC 17.3 H (4.8-10.8) X10*3/uL RBC 5.06 (4.60-5.80) X10*6/uL Hgb 13.6 L (14.0-18.0) g/dl Hct 42.2 (42.0-52.0) % MCV 83.4 (80.0-98.0) fL MCH 26.9 L (27.0-33.0) pg MCHC 32.2 (31.0-36.0) g/dl RDW 18.6 H (11.0-16.0) % Plt Count 699 H D (160-400) X10*3/uL MPV 8.7 L (9.4-12.4) fL Immature Gran % (Auto) 0.4 (0.0-0.4) % Neut % (Auto) 69.5 (45-73) % Lymph % (Auto) 20.5 (20-40) % [place] % (Auto) 8.9 (2-11) % Eos % (Auto) 0.3 (0-4) % Baso % (Auto) 0.4 (0-2) % Lymph # (Auto) 3.5 (1.2-4.9) X10*3/uL [place] # (Auto) 1.5 H (0.1-1.2) X10*3/uL Eos # (Auto) 0.1 (0.0-0.4) X10*3/uL Baso # (Auto) 0.1 (0.0-0.2) X10*3/uL Abs Immat Gran (auto) 0.07 H (0.00-0.03) X10*3/uL Absolute Neuts (auto) 12.0 H (2.0-8.3) x10*3/uL Absolute Nucleated RBC 0.000 (0.0-0.012) X10*3/uL Nucleated RBC % (auto) 0.0 (0.0-0.2) /100WBC Smear Tech's Comments VERIFIED PT 11.9 (11.2-13.5) SEC INR 1.0 (0.9-1.1) APTT 27.1 (26.7-34.1) SEC D-Dimer High Sensitivty 723 NG/ML Sodium 140 (135-145) mmol/L Potassium 3.7 (3.3-5.1) mmol/L Chloride 108 (96-108) mmol/L Carbon Dioxide 21 L (22-29) mmol/L Anion Gap 15 (12-20) BUN 8 L (9-16) mg/dL Creatinine 0.68 (0.5-1.4) mg/dL Estim Creat Clear Calc TNP Estimated GFR > 60 Random Glucose 89 (60-115) mg/dL Calcium 9.3 D (8.4-10.2) mg/dL Magnesium 2.4 (1.6-2.6) mg/dL Total Bilirubin 0.2 (0.0-1.0) mg/dL AST 28 (5-37) U/L ALT 36 (0-40) U/L Alkaline Phosphatase 74 (39-117) U/L Troponin I High Sens < 2.7 (<3.5-35.0) ng/L C-Reactive Protein 0.70 H (< or = 0.50) mg/dL NT-Pro-B Natriuret Pep < 15.8 (<300) pg/mL Total Protein 7.9 (6.5-8.0) g/dL Albumin 5.1 H (3.5-5.0) g/dL Lipase 22 (8-78) U/L Ethyl Alcohol 316 H* mg/dL Influenza Type A (PCR) NEGATIVE (Negative) Influenza Type B (PCR) NEGATIVE (Negative) RSV RNA Qual (PCR) NEGATIVE (Negative) SARS-CoV-2 RNA (RT-PCR) POSITIVE A (Negative) Discharge Plan Discharge Clinical Impression: Pericarditis Patient Disposition: Home, Self-Care Instructions: Acute Pericarditis (ED) Additional Instructions: Today in the emergency department you had echo of your heart which showed only small amount of pericardial and no other abnormalities. You had reassuring lab work. Your alcohol level was elevated above 300. You had not taken your apixaban blood thinning medication or other medications in the last 2 days we gave your evening dose dose tonight you can restart tomorrow morning do not miss any additional doses that puts you at higher risk for recurrence or progression of previously diagnosed pulmonary emboli clot. Drink plenty of fluid we recommend taking an gnhi-bhu-mzxpres vitamin B. If you need help with your alcohol use return or contact detoxYou were seen in our Emergency Department today for treatment of a behavioral health issue. It is important after your visit that you follow up with either your behavioral health provider or a primary care doctor within 7 days.? Call to establish and follow up with a gastrointestinal specialist. Alcohol use disorder You were seen in the Emergency Department today for treatment of alcohol use disorder.? You may have been given medications to help with your withdrawal symptoms.? Please do not drink alcohol with them. This is very dangerous and can cause respiratory depression or other adverse reactions depending on the medication. If you would like to cut down or stop your alcohol use please consider calling our outpatient Addiction Treatment office:? [facility] (M-F 9a-5p) [address] [facility] [address] You have also been given a list of treatment providers in the area that can assist as well.? If you experience seizures, vomiting blood, black stools, falls, severe headache, chest pain, fevers, trouble breathing, hallucinations or any other concerns you need to call 911 or seek immediate care. Please stay hydrated. If you have trouble finding a therapist you can reach out to [address] [phone] The National Suicide and Crisis Lifeline can be reached 7 days a week 24 hours a day.? Call 988 to speak with someone.? Return for any worsening symptoms or concerns such as thoughts of self harm or harm to others. Please call 911 if you feel your mental health is worsening.? Prescriptions: New colchicine 0.6 mg capsule 0.6 mg PO DAILY 30 Days Qty: 30 0RF indomethacin 50 mg capsule 50 mg PO BID 7 Days Qty: 14 0RF Rx Instructions: administer with food or milk Eliquis 5 mg tablet 5 mg PO BID 14 Days Qty: 28 0RF No Action trazodone 50 mg tablet 50 mg PO BEDTIME citalopram 20 mg tablet 20 mg PO DAILY pantoprazole 40 mg tablet,delayed release (DR/EC) 40 mg PO BID@0630,1630 colchicine 0.6 mg tablet 0.6 mg PO BID Eliquis 5 mg tablet 5 mg PO BID sucralfate 1 gram tablet 1 g PO TIDAC melatonin 5 mg Tablet 5 mg PO BEDTIME PRN (Reason: Sleep) prednisone 5 mg tablet 25 mg PO DAILY Rx Instructions: 25 mg daily for 14 days oxcarbazepine 300 mg tablet 300 mg PO BID gabapentin 300 mg capsule 300 mg PO BID Print Language: [place]
[2025-07-18 14:06] LABS: Hematocrit 42.2 % (42.0-52.0); Hemoglobin 13.6 g/dl (14.0-18.0); Imm Gran Abs Auto 0.07 X10*3/uL (0.00-0.03); Imm Gran Pct Auto 0.4 % (0.0-0.4); Lymphocytes Absolute Auto 3.5 X10*3/uL (1.2-4.9); MANUAL DIFF FLAG SCAN; Mean Corpuscular HGB Conc 32.2 g/dl (31.0-36.0); Mean Corpuscular Hemoglobin 26.9 pg (27.0-33.0); Mean Corpuscular Volume 83.4 fL (80.0-98.0); NRBC Abs Auto 0.000 X10*3/uL (0.0-0.012); NRBC Pct Auto 0.0 /100WBC (0.0-0.2); Platelet Count 699 X10*3/uL (160-400); Red Blood Count 5.06 X10*6/uL (4.60-5.80); SCAN SMEAR FLAG 1; White Blood Count 17.3 X10*3/uL (4.8-10.8)
[2025-07-18 14:14] VITALS: BP 155/90; PULSE 115; RESP 18; TEMP 36.7; O2SAT 95; BMI 29.9
[2025-07-18 14:15] LABS: INTERNATIONAL NORM RATIO 1.0 (0.9-1.1); Prothrombin Time 11.9 SEC (11.2-13.5)
[2025-07-18 14:16] LABS: Alanine Aminotransferase 36 U/L (0-40); Albumin Level 5.1 g/dL (3.5-5.0); Alkaline Phosphatase 74 U/L (39-117); Anion Gap 15 (12-20); Aspartate Amino Transferase 28 U/L (5-37); Blood Urea Nitrogen 8 mg/dL (9-16); Calcium 9.3 mg/dL (8.4-10.2); Carbon Dioxide 21 mmol/L (22-29); Chloride 108 mmol/L (96-108); Estimated Glomerular Filt Rate > 60; Lipase 22 U/L (8-78); Magnesium 2.4 mg/dL (1.6-2.6); Potassium 3.7 mmol/L (3.3-5.1); Sodium 140 mmol/L (135-145); Total Protein 7.9 g/dL (6.5-8.0)
[2025-07-18 14:18] LABS: D Dimer High Sensitivity 723 NG/ML; Partial Thromboplastin Time 27.1 SEC (26.7-34.1)
[2025-07-18 14:26] LABS: NT Pro B Type Natriuretic Pept < 15.8 pg/mL (<300); Troponin-I High Sensitivity < 2.7 ng/L (<3.5-35.0)
[2025-07-18 14:39] LABS: Resp Syncy Virus RNA Qual PCR NEGATIVE (Negative); SARS COV2 PCR INHOUSE POSITIVE (Negative)
[2025-07-18] MEDS: Lactated Ringers 1,000 ML 999 ML IV ×2 (16:36→17:55)
--- NOTE | 2025-07-18 16:38 | MHC.EDTECH ---
9312 when Rn did iv insertion attempted to collected Blood cultures, stated No need for blood cultures he is not sepsis he has covid. requested for bcs to be dc @ 1844
[2025-07-18 18:08] VITALS: BP 123/92; PULSE 91; RESP 18; TEMP 36.4
--- NOTE | 2025-07-18 19:38 | PC.NURSE ---
assumed care of pt, pt reports 8/10 pain, provider aware, awaiting new orders. respirations even and unlabored.
--- NOTE | 2025-07-18 19:54 | PC.NURSE ---
pt walked out into hallway with clothing on, pt has monitor on and Ultrasound guided IV line, pt was walked back into his room. t states he can just leave. Pt advised he would need to speak with the povider if he wanted t leave, pt aware that he has a IV line and would need that removed if he wanted to leave. Pt advised provider is aware of his pain and will be in to speak with him shortly.
--- NOTE | 2025-07-18 20:00 | PC.NURSE ---
pt states he would like to go. [facility] on being d/c. provider put pt up for d/c, IV line removed, pt declined d/c paper work.
[2025-07-18 20:17] VITALS: BP 123/92; PULSE 91; RESP 18; TEMP 36.4
--- OUTSIDE RECORDS SUMMARY | 2025-07-18 20:34 | XMS_ITS | Encounter Summary ---
Author Organization [facility] Address [address] [place] [address] Phone Care Team Providers Care Dry Transfer Man Name Role Phone Noé Huynh JOINT CLEANING MACHINE OPERATOR Primary Care Provider +[phone]- [phone] Wali Long JOINT CLEANING MACHINE OPERATOR Primary Care Provider + Encounter Details Date Type Department Care Team (Late st Contact Info) Description 05/15/2021 Procedure Pass [facility], Ct Scan - [address] [address] Social History Tobacco Use Types Packs/Day Years [...] on filedocumented in this encounter Care Teams Dry Transfer Man Relationship Specialty Start Date End Date Noé Huynh JOINT CLEANING MACHINE OPERATOR [email or web address] PCP - General Family Medicine 09/17/19 Wali Long, JUAN [address] [place] [place] [address] PCP - General Family Medicine 11/11/21 documented as of this encounter Additional Source Comments The information contained in this document represents components of the legal health record. It is not the complete legal health record.[facility]
--- OUTSIDE RECORDS SUMMARY | 2025-07-18 20:34 | XMS_ITS | Encounter Summary ---
Author Organization [facility] Address [address] [place] [address] Phone Care Team Providers Care Garnett Fixer Name Role Phone Noé Huynh HOME HEALTH OUTREACH COORDINATOR Primary Care Provider + [phone] Wali Long HOME HEALTH OUTREACH COORDINATOR Primary Care Provider + Reason for Referral [...] Expiration Date Visits Re quested Visits Authorized [id number] Closed 10/11/2021 10/11/2022 1 1 Encounter Details Date Type Department Care Team (Latest Contact Info) Description 10/11/2021 Transcribe Orders Virtual Department 30 [place] [address] Susana Rollins PA 10 [place] [address] Vomiting, intractability of vomiting not specified, presence [...] type documented in this encounter Care Teams Garnett Fixer Relationship Specialty Start Date End Date Noé Huynh NP [email or web address] PCP - General Family Medicine 09/17/19 Wali Long NP [address] [place] [address] [place] [address] PCP - General Family Medicine 11/11/21 documented as of this encounter Additional Source Comments The information contained in this document represents components of the legal health record. It is not the complete legal health record.[facility]
--- OUTSIDE RECORDS SUMMARY | 2025-07-18 20:34 | XMS_ITS | Encounter Summary ---
Author Organization [facility] Address [address] [place] [address] Phone Care Team Providers Care Senior Functional Analyst Name Role Phone Noé Huynh AIRBRUSH ARTIST PHOTOGRAPHY Primary Care Provider Wali Long AIRBRUSH ARTIST PHOTOGRAPHY Primary Care Provider + Encounter Details Date Type Department Care Team (Latest Contact Info) Description 09/17/2019 Transcribe Orders [facility] [place] [address] [address] Susana Rollins PA 10 [place] [address] Abdominal pain, left lower quadrant (Primary Dx); [...] EST) LIPASE 18 16 - 63 U/L [facility] Blood 09/17/2019 10:1 3 AM EST 09/17/2019 10:17 AM EST us Susana MULLER LAB BLOOD BKR ORDERABLES Fi nal Result [address] [address] * Comprehensive metabolic panel (09/17/2019 10:13 AM EST) SODIUM 140 133 - 146 mmol/L [facility] POTASSIUM 4.3 3.3 - 5.1 mmol/L [facility] CHLORIDE 104 96 - 108 mmol/L [facility] CO2 27 21 - 35 mmol/L [facility] BUN 6 6 - 19 mg/dL [facility] CREATININE 0.80 0.5 - 1.5 mg/dL [facility] GLUCOSE 72 70 - 99 mg/dL [facility] ALBUMIN 4.4 3.9 - 4.8 g/dL [facility] TOTAL PROTEIN 7.0 6.5 - 8.0 g/dL [facility] CALCIUM 9.2 8.4 - 10.3 mg/dL [facility] ALKALINE PHOSPHATASE 56 39 - 117 U/L [facility] TOTAL BILIRUBIN 0.4 0.0 - 1.2 mg/dL [facility] AST 26 0 - 37 U/L [facility] ALT 15 0 - 40 U/L [facility] GLOBULIN 2.6 1 - 4.8 g/dL [facility] EGFR >120 >59 mL/min/1.7 3m2 [facility] Comment:If patient is black, multiply result by 1.159. Estimated glomerular filtration rate calculated using the CKD-EPI equation. ANION GAP 13 10 - 20 mmol/L [facility] Blood 09/17/2019 10:1 3 AM EST 09/17/2019 10:17 AM EST us Susana MULLER LAB BLOOD BKR ORDERABLES Fi nal Result [address] [address] * CBC (09/17/2019 10:13 AM EST) WBC 5.94 4.00 - 11.00 K/uL [facility] Comment:Note Reference Range updates to all CBC and Differential results. RBC 4.91 4.48 - 5.88 M/uL [facility] HGB 14.8 13.4 - 17.5 g/dL [facility] Comment:Note updated Referen ce Ranges for all CBC and Differential results. HCT 43.8 38.0 - 51.0 % [facility] PLT 377 140 - 430 K/uL [facility] MCV 89.2 78.0 - 97.0 fL [facility] MCH 30.1 25.0 - 33.0 pg [facility] MCHC 33.8 32.0 - 36.0 g/dL [facility] RDW 12.9 11.0 - 15.0 % [facility] MPV 9.4 8.4 - 12.8 fl [facility] NRBC 0.00 0 /100 WBCs [facility] ABSOLUTE NRBC 0.00 0 K/uL [facility] Blood 09/17/2019 10:1 3 AM EST 09/17/2019 10:17 AM EST Susana MULLER LAB BLOOD BKR ORDERABLES Fi nal Result [facility] 30 [place] [address] documented in this encounter Visit Diagnoses Diagnosis Abdominal pain, left lower quadrant- Primary Bloating Flatulence, eructation, and gas pain Nausea Nausea alone documented in this encounter Care Teams Senior Functional Analyst Relationship Specialty Start Date End Date Noé Huynh NP [email or web address] PCP - General Family Medicine 09/17/19 Wali Long NP [facility] [place] [address] PCP - General Family Medicine 11/11/21 documented as of this encounter Additional Source Comments The information contained in this document represents components of the legal health record. It is not the complete legal health record.[facility]
--- OUTSIDE RECORDS SUMMARY | 2025-07-18 20:34 | XMS_ITS | Encounter Summary ---
Author Organization [facility] Address [address] [place] [address] Phone Care Team Providers Care Mmi Teacher Name Role Phone Noé Huynh LOT BOSS Primary Care Provider [phone] Wali Long LOT BOSS Primary Care Provider + Encounter Details Date Type Department Care Team (Late st Contact Info) Description 09/30/2019 Procedure Pass [facility] Endoscopy Admitting Dept Virtual Department 30 [place] [address] Social History Tobacco Use Types Packs/Day Years [...] on filedocumented in this encounter Care Teams Mmi Teacher Relationship Specialty Start Date End Date Noé Huynh LOT BOSS [email or web address] PCP - General Family Medicine 09/17/19 Wali Long NP [address] [facility] [place] [address] PCP - General Family Medicine 11/11/21 documented as of this encounter Additional Source Comments The information contained in this document represents components of the legal health record. It is not the complete legal health record.[facility]
--- OUTSIDE RECORDS SUMMARY | 2025-07-18 20:34 | XMS_ITS | Clinical Summary ---
Author Organization [facility] Address [address] [address] Phone Care Team Providers Care Casing Splitter Name Role Phone Wali Long CHILD NEUROLOGIST Primary Care Provider + Allergies Active Allergy [...] topic Medical Devices Not on file Insurance [facility] [employer] [facility] DIRECT HEALTH SAFETY NET PARTIAL Member Subscriber Plan / Payer (Ef fective 2021-Present) Name:Jack Burns Relation to Subscriber:Self Name:GrantJack amin Payer ID:Not on file Group ID:Not on file Type:Medicaid Address: [place] [id number] [facility] [facility] SAF[facility] NET PARTIAL [employer] NET PARTIAL [employer] [facility] NET PARTIAL [place] PUBLIC [employer] [place] [address] [facility] [place] [address] [facility] DIRECT [facility]ALTH SAFETY NET PARTIAL [facility] NET PARTIAL [facility] NET PARTIAL Care Teams Casing Splitter Relationship Specialty Start Date End Date Wali Long NP 1960 [facility] [address] [place] [address] PCP - General Family Medicine 11/11/21 Additional Source Comments The information contained in this document represents components of the legal health record. It is not the complete legal health record.[facility]
--- OUTSIDE RECORDS SUMMARY | 2025-07-18 20:34 | XMS_ITS | Encounter Summary ---
Author Organization [facility] Address [address] [address] Phone Care Team Providers Care Furnace Converter Name Role Phone Noé Huynh FLOWER CHENILLER Primary Care Provider [phone] Wali Long FLOWER CHENILLER Primary Care Provider + Reason for Referral * MRI/CAT Scan - Closed Specialty Diagnoses / Procedures Referred By Contac t Referred To Contact Radiology Diagnoses LLQ pain Bloating Nausea Procedures CT Abdomen/Pelvis Susana Rollins PA Phone: tel: fax: Referral ID Status Reason Start Date Expiration Date Visits Re quested Visits Authorized [id number] Closed 09/19/2019 12/18/2019 1 1 Encounter Details Date Type Department Care Team (Latest Contact Info) Description 09/19/2019 Transcribe Orders Virtual Department 30 [place] [address] Susana Rollins PA [address] [place] [address] Bloating (Primary Dx); LLQ pain; Nausea Social [...] alone documented in this encounter Care Teams Furnace Converter Relationship Specialty Start Date End Date Noé Huynh NP [email or web address] PCP - General Family Medicine 09/17/19 Wali Long NP [facility] [place] [address] PCP - General Family Medicine 11/11/21 documented as of this encounter Additional Source Comments The information contained in this document represents components of the legal health record. It is not the complete legal health record.[facility]
--- OUTSIDE RECORDS SUMMARY | 2025-07-18 20:34 | XMS_ITS | Encounter Summary ---
Author Organization [facility] Address [address] [place] [address] Phone Care Team Providers Care River Crossing Supervisor Name Role Phone Noé Huynh ASSISTANT GROCERY STORE MANAGER Primary Care Provider [phone] Wali Long ASSISTANT GROCERY STORE MANAGER Primary Care Provider + Encounter Details Date Type Department Care Team (Late st Contact Info) Description 09/09/2021 Procedure Pass [facility] Endoscopy Admitting Dept Virtual Department 30 [place] [address] Social History Tobacco Use Types Packs/Day Years [...] on filedocumented in this encounter Care Teams River Crossing Supervisor Relationship Specialty Start Date End Date Noé Huynh ASSISTANT GROCERY STORE MANAGER [email or web address] PCP - General Family Medicine 09/17/19 Wali Long NP 1960 [facility] [place] [address] PCP - General Family Medicine 11/11/21 documented as of this encounter Additional Source Comments The information contained in this document represents components of the legal health record. It is not the complete legal health record.[facility]
== END 2025-07-18 20:17 | disposition home or self-care (01) ==
PROVIDERS: Emergency Medicine; Registered Nurse Emergency; Emergency Provider Emergency Medicine
DX: U07.1 COVID-19 (principal); I31.9 Disease of pericardium, unspecified; Z86.711 Personal history of pulmonary embolism; Z91.148 Patient's other noncompliance with medication regimen for other reason; F10.20 Alcohol dependence, uncomplicated; Y90.8 Blood alcohol level of 240 mg/100 ml or more; Z87.891 Personal history of nicotine dependence
CPT/HCPCS: 36415; 71045; 80053; 80307; 83690; 83735; 83880; 84484; 85025; 85379; 85610; 85730; 86140; 87637; 93005; 96361; 96374; 96375; 99285; J1885; J2470; J7120

== ENCOUNTER → 2025-07-18 13:40 | Outpatient (BNV) | payer OTHER, SELFPAY | PROVIDERS: Visit Provider Internal Medicine Cardiovascular Disease | DX: R00.0 Tachycardia, unspecified (principal) | CPT/HCPCS: 93010 ==

== ENCOUNTER → 2025-07-18 13:41 | Outpatient (BNV) | payer OTHER, SELFPAY | PROVIDERS: Visit Provider Radiology Diagnostic Radiology | DX: R07.9 Chest pain, unspecified (principal) | CPT/HCPCS: 71045 ==

== ENCOUNTER 2025-07-19 12:39 | Emergency (ER) | payer OTHER, SELFPAY ==
--- NOTE | 2025-07-19 | ECG_ITS ---
Test Reason : CP Blood Pressure : */* mmHG Vent. Rate : 106 BPM Atrial Rate : 106 BPM P-R Int : 154 ms QRS Dur : 86 ms QT Int : 338 ms P-R-T Axes : 44 25 10 degrees QTcB Int : 448 ms Sinus tachycardia Otherwise normal ECG When compared with ECG of 18-Jul-2025 13:45, No significant change was found Referred By: Generic ED Physician Electronically Signed By: CHAO RUIZ MD
[2025-07-19 12:47] VITALS: BP 119/80; BP 153/90; PULSE 112; PULSE 130; RESP 20; TEMP 36.8; O2SAT 91; O2SAT 95; BMI 31.5
--- OUTSIDE RECORDS SUMMARY | 2025-07-19 13:33 | XMS_ITS | Encounter Summary ---
Author Organization [facility] Address [address] [place] [address] Phone Care Team Providers Care Bible Worker Name Role Phone Noé Huynh STILL OPERATOR HELPER Primary Care Provider Wali Long STILL OPERATOR HELPER Primary Care Provider + Encounter Details Date Type Department Care Team (Latest Contact Info) Description 09/17/2019 Transcribe Orders [facility] [place] [address] [address] Susana Rollins PA 10 [place] [address] Abdominal pain, left lower quadrant (Primary Dx); [...] EST) LIPASE 18 16 - 63 U/L [facility] Blood 09/17/2019 10:1 3 AM EST 09/17/2019 10:17 AM EST us Susana MULLER LAB BLOOD BKR ORDERABLES Fi nal Result [address] [address] * Comprehensive metabolic panel (09/17/2019 10:13 AM EST) SODIUM 140 133 - 146 mmol/L [facility] POTASSIUM 4.3 3.3 - 5.1 mmol/L [facility] CHLORIDE 104 96 - 108 mmol/L [facility] CO2 27 21 - 35 mmol/L [facility] BUN 6 6 - 19 mg/dL [facility] CREATININE 0.80 0.5 - 1.5 mg/dL [facility] GLUCOSE 72 70 - 99 mg/dL [facility] ALBUMIN 4.4 3.9 - 4.8 g/dL [facility] TOTAL PROTEIN 7.0 6.5 - 8.0 g/dL [facility] CALCIUM 9.2 8.4 - 10.3 mg/dL [facility] ALKALINE PHOSPHATASE 56 39 - 117 U/L [facility] TOTAL BILIRUBIN 0.4 0.0 - 1.2 mg/dL [facility] AST 26 0 - 37 U/L [facility] ALT 15 0 - 40 U/L [facility] GLOBULIN 2.6 1 - 4.8 g/dL [facility] EGFR >120 >59 mL/min/1.7 3m2 [facility] Comment:If patient is black, multiply result by 1.159. Estimated glomerular filtration rate calculated using the CKD-EPI equation. ANION GAP 13 10 - 20 mmol/L [facility] Blood 09/17/2019 10:1 3 AM EST 09/17/2019 10:17 AM EST us Susana MULLER LAB BLOOD BKR ORDERABLES Fi nal Result [address] [address] * CBC (09/17/2019 10:13 AM EST) WBC 5.94 4.00 - 11.00 K/uL [facility] Comment:Note Reference Range updates to all CBC and Differential results. RBC 4.91 4.48 - 5.88 M/uL [facility] HGB 14.8 13.4 - 17.5 g/dL [facility] Comment:Note updated Referen ce Ranges for all CBC and Differential results. HCT 43.8 38.0 - 51.0 % [facility] PLT 377 140 - 430 K/uL [facility] MCV 89.2 78.0 - 97.0 fL [facility] MCH 30.1 25.0 - 33.0 pg [facility] MCHC 33.8 32.0 - 36.0 g/dL [facility] RDW 12.9 11.0 - 15.0 % [facility] MPV 9.4 8.4 - 12.8 fl [facility] NRBC 0.00 0 /100 WBCs [facility] ABSOLUTE NRBC 0.00 0 K/uL [facility] Blood 09/17/2019 10:1 3 AM EST 09/17/2019 10:17 AM EST Susana MULLER LAB BLOOD BKR ORDERABLES Fi nal Result [facility] 30 [place] [address] documented in this encounter Visit Diagnoses Diagnosis Abdominal pain, left lower quadrant- Primary Bloating Flatulence, eructation, and gas pain Nausea Nausea alone documented in this encounter Care Teams Bible Worker Relationship Specialty Start Date End Date Noé Huynh NP [email or web address] PCP - General Family Medicine 09/17/19 Wali Long NP [facility] [place] [address] PCP - General Family Medicine 11/11/21 documented as of this encounter Additional Source Comments The information contained in this document represents components of the legal health record. It is not the complete legal health record.[facility]
--- OUTSIDE RECORDS SUMMARY | 2025-07-19 13:33 | XMS_ITS | Encounter Summary ---
Author Organization [facility] Address [address] [place] [address] Phone Care Team Providers Care Regenerator Operator Name Role Phone Noé Huynh SUPERVISOR CHRISTMAS TREE FARM Primary Care Provider [phone] Wali Long SUPERVISOR [employer] Primary Care Provider + Encounter Details Date Type Department Care Team (Late st Contact Info) Description 05/15/2021 Procedure Pass [facility], Ct Scan - [address] [address] Social History Tobacco Use Types Packs/Day Years [...] on filedocumented in this encounter Care Teams Regenerator Operator Relationship Specialty Start Date End Date Noé Huynh SUPERVISOR CHRISTMAS TREE FARM [email or web address] PCP - General Family Medicine 09/17/19 Wali Long, JUAN 1960 [facility] [place] [address] PCP - General Family Medicine 11/11/21 documented as of this encounter Additional Source Comments The information contained in this document represents components of the legal health record. It is not the complete legal health record.[facility]
--- OUTSIDE RECORDS SUMMARY | 2025-07-19 13:33 | XMS_ITS | Encounter Summary ---
Author Organization [facility] Address [address] [place] [address] Phone Care Team Providers Care Routeman Name Role Phone Noé Huynh SILVERWARE SUPERVISOR Primary Care Provider [phone] Wali Long SILVERWARE SUPERVISOR Primary Care Provider + Encounter Details Date Type Department Care Team (Late st Contact Info) Description 09/09/2021 Procedure Pass [facility] Endoscopy Admitting Dept Virtual Department 30 [place] [address] Social History Tobacco Use Types Packs/Day Years [...] on filedocumented in this encounter Care Teams Routeman Relationship Specialty Start Date End Date Noé Huynh SILVERWARE SUPERVISOR [email or web address] PCP - General Family Medicine 09/17/19 Wali Long NP [address] [facility] [place] [address] PCP - General Family Medicine 11/11/21 documented as of this encounter Additional Source Comments The information contained in this document represents components of the legal health record. It is not the complete legal health record.[facility]
--- OUTSIDE RECORDS SUMMARY | 2025-07-19 13:33 | XMS_ITS | Encounter Summary ---
Author Organization [facility] Address [address] [address] Phone Care Team Providers Care Payment Collector Name Role Phone Noé Huynh SENIOR QUALITY ANALYST Primary Care Provider +[phone] Wali Long SENIOR QUALITY ANALYST Primary Care Provider + Reason for Referral * MRI/CAT Scan - Closed Specialty Diagnoses / Procedures Referred By Contac t Referred To Contact Radiology Diagnoses LLQ pain Bloating Nausea Procedures CT Abdomen/Pelvis Susana Rollins PA Phone: tel: fax: Referral ID Status Reason Start Date Expiration Date Visits Re quested Visits Authorized [id number] Closed 09/19/2019 12/18/2019 1 1 Encounter Details Date Type Department Care Team (Latest Contact Info) Description 09/19/2019 Transcribe Orders Virtual Department 30 [place] [address] Susana Rollins PA [address] [place] [address] Bloating (Primary Dx); LLQ pain; Nausea Social [...] alone documented in this encounter Care Teams Payment Collector Relationship Specialty Start Date End Date Noé Huynh NP [email or web address] for [email or web address] Groupmeadows regional [facility] PCP - General Family Medicine 09/17/19 Wali Long NP [facility] [place] [address] PCP - General Family Medicine 11/11/21 documented as of this encounter Additional Source Comments The information contained in this document represents components of the legal health record. It is not the complete legal health record.[facility]
--- OUTSIDE RECORDS SUMMARY | 2025-07-19 13:33 | XMS_ITS | Encounter Summary ---
Author Organization [facility] Address [address] [place] [address] Phone Care Team Providers Care Hydraulic Plumber Name Role Phone Noé Huynh LEGAL DOCUMENT ASSISTANT Primary Care Provider + [phone] Wali Long LEGAL DOCUMENT ASSISTANT Primary Care Provider + Reason for Referral [...] Expiration Date Visits Re quested Visits Authorized [id number] Closed 10/11/2021 10/11/2022 1 1 Encounter Details Date Type Department Care Team (Latest Contact Info) Description 10/11/2021 Transcribe Orders Virtual Department 30 [place] [address] Susana Rollins PA 10 [place] [address] Vomiting, intractability of vomiting not specified, presence [...] type documented in this encounter Care Teams Hydraulic Plumber Relationship Specialty Start Date End Date Noé Huynh NP [email or web address] PCP - General Family Medicine 09/17/19 Wali Long NP [address] [place] [address] [place] [address] PCP - General Family Medicine 11/11/21 documented as of this encounter Additional Source Comments The information contained in this document represents components of the legal health record. It is not the complete legal health record.[facility]
--- OUTSIDE RECORDS SUMMARY | 2025-07-19 13:33 | XMS_ITS | Encounter Summary ---
Author Organization [facility] Address [address] [place] [address] Phone Care Team Providers Care Rail Equipment Operator Name Role Phone Noé Huynh SOLAR/RENEWABLE ENERGY SALES Primary Care Provider [phone] Wali Long SOLAR/RENEWABLE ENERGY SALES Primary Care Provider + Encounter Details Date Type Department Care Team (Late st Contact Info) Description 09/30/2019 Procedure Pass [facility] Endoscopy Admitting Dept Virtual Department 30 [place] [address] Social History Tobacco Use Types Packs/Day Years [...] on filedocumented in this encounter Care Teams Rail Equipment Operator Relationship Specialty Start Date End Date Noé Huynh SOLAR/RENEWABLE ENERGY SALES [email or web address] PCP - General Family Medicine 09/17/19 Wali Long NP [address] [facility] [place] [address] PCP - General Family Medicine 11/11/21 documented as of this encounter Additional Source Comments The information contained in this document represents components of the legal health record. It is not the complete legal health record.[facility]
--- NOTE | 2025-07-19 14:18 | ED.CHESTPAIN ---
HPI - Chest Pain General Chief Complaint: Chest Pain Stated Complaint: CP PER EMS Time Seen by Provider: 07/19/25 14:18 Source: patient and EMS Mode of arrival: EMS Limitations: no limitations History of Present Illness ED Provider: Peggy Paez APRN HPI narrative: 34-year-old male with a history of PE on Eliquis, chronic recurrent pericarditis with pericardial effusion status post pericardial window presents the ER with complaints of chronic chest pain which she has had 4 days. There is no associated shortness of breath, fever, cough, leg swelling, leg pain. Of note, patient was seen here yesterday for same and left against medical advice. He has been drinking alcohol more than 20 beers daily. His last drink was just prior to arrival. He tells me that he has a bed [facility] for detox but he needs medical clearance prior to going there. He denies any drug use. No SI/HI. Related Data Home Medications ?Medication ?Instructions ?Recorded ?Confirmed apixaban 5 mg tablet (Eliquis) 5 mg PO BID 05/08/25 06/21/25 citalopram 20 mg tablet 20 mg PO DAILY 05/08/25 06/21/25 colchicine 0.6 mg tablet 0.6 mg PO BID 05/08/25 06/21/25 melatonin 5 mg tablet 5 mg PO BEDTIME PRN Sleep 05/08/25 06/21/25 pantoprazole 40 mg tablet,delayed 40 mg PO BID@0630,1630 05/08/25 06/21/25 release sucralfate 1 gram tablet 1 g PO TIDAC 05/08/25 06/21/25 trazodone 50 mg tablet 50 mg PO BEDTIME 05/08/25 06/21/25 gabapentin 300 mg capsule 300 mg PO BID 06/21/25 06/21/25 oxcarbazepine 300 mg tablet 300 mg PO BID 06/21/25 06/21/25 prednisone 5 mg tablet 25 mg PO DAILY 06/21/25 06/21/25 Previous Rx's ?Medication ?Instructions ?Recorded apixaban 5 mg tablet (Eliquis) 5 mg PO BID 14 days #28 tabs 07/18/25 colchicine 0.6 mg capsule 0.6 mg PO DAILY 30 days #30 caps 07/18/25 indomethacin 50 mg capsule 50 mg PO BID 1 week #14 caps 07/18/25 Allergies Allergy/AdvReac Type Severity Reaction Status Date / Time No Known Allergies Allergy Verified 07/19/25 12:56 Review of Systems Review of Systems: Yes all other systems are reviewed and are negative Constitutional: Constitutional: Reports no additional constitutional complaints, Denies body ache(s), Denies chills, Denies fever(s), Denies headache(s) and Denies weakness Eyes: Eyes: Reports no additional eye complaints and Denies change in vision ENT: Reports system reviewed and no additional complaints, except as documented, Denies dizziness, Denies headache(s), Denies nasal congestion, Denies nasal discharge and Denies neck pain Cardiovascular: Cardiovascular: Reports no additional cardiovascular complaints, Reports chest pain, Denies leg edema and Denies dyspnea Respiratory: Respiratory: Reports no additional respiratory complaints, Denies cough and Denies dyspnea Gastrointestinal: Gastrointestinal: Reports no additional gastrointestinal complaints, Denies abdominal pain, Denies diarrhea, Denies nausea and Denies vomiting Genitourinary: Genitourinary: Denies urinary incontinence Musculoskeletal: Musculoskeletal: Reports no additional musculoskeletal complaints, Denies back pain, Denies arthralgias, Denies joint swelling, Denies neck pain, Denies numbness and Denies tingling Integumentary/Breasts: Skin/Breast: Reports system reviewed and no additional complaints, except as docu and Denies rash Neurologic: Reports system reviewed and no additional complaints, except as documented, Denies Abnormal speech present, Denies dizziness, Denies headache(s), Denies numbness, Denies tingling and Denies weakness PMF Past Medical History Attestation statement: The following information was validated with the patient. Source: old records reviewed and nursing notes reviewed Medical History Chest pain Dysphagia, pharyngoesophageal phase Pericarditis Pericardial effusion Alcohol use disorder, moderate, dependence MDD (major depressive disorder), recurrent episode, moderate Nausea with vomiting Alcohol use disorder Anxiety and depression History of seizure due to alcohol withdrawal ETOH abuse Surgical History History of surgery H/O endoscopy Family History Family History Other Diabetes Social History Social History Household Members: Other Household Members Other:: Friend Housing: Apartment Do you presently have visiting nurse or other home services: No Alcohol intake: current Alcohol intake frequency: 3 or more drinks per day Alcohol type: beer and hard liquor Comment: patient refusing alarms Patient Tobacco Use Status: Former Tobacco user Tobacco use type: Cigarette Smoked in Last 30 Days: No e-Cigarette/Vaping Use: Never Used Second Hand Smoke Exposure: No Use of substances other than those prescribed or required for medical reasons: No Substance Use Type: Marijuana Advance Directives: No Advance Directives Information Provided: No Advance Directives Date on File: 11/07/22 service: No Current occupational status: employed Physical Exam Vital Signs: Vital Signs: Last Vital Signs Temp 98.3 F 07/19/25 12:47 Pulse 111 H 07/19/25 16:12 Resp 18 07/19/25 16:12 BP 118/63 07/19/25 16:12 Pulse Ox 94 07/19/25 16:12 O2 Del Method Room Air 07/19/25 16:12 BMI result Body Mass Index 31.5 Const: General: cooperative, healthy appearing, comfortable and no acute distress Orientation/consciousness: patient oriented x3 Limitations: no limitations HEENT: Head: Yes normal to inspection Ears: hearing grossly normal bilaterally General nose exam: Normal external nose present Face and sinus: Yes normal facial exam Mouth: Normal oral and palatal mucosa present Throat: Yes posterior oropharynx normal Eyes: General: appearance normal, both eyes and all related structures Pupils: Equal, round and reactive pupils present Neck: Neck: Yes normal visual inspection Chest: Chest palpation & inspection: normal inspection of the chest Resp: Effort & Inspection: normal respiratory effort Auscultation: clear to auscultation bilaterally Cardio: Rate: regular rate Rhythm: regular rhythm Peripheral pulses: Peripheral pulses 2+ throughout GI: Inspection: Yes normal to inspection Palpation (GI): Soft to palpation and nontender Auscultation: normal bowel sounds Back/Spine/Pelvis: Thoracic/Lumbar Spine: thoracic and lumbar spine normal to inspection Skin: General skin exam: no rashes or lesions noted Neuro: General: patient oriented x3, no focal motor deficits and normal sensation to monofilament Cranial nerves: Yes Equal, round and reactive pupils present Cognition (Neuro): normal cognition Speech: No Abnormal speech present Gait exam (Neuro): Normal gait present Motor exam (neuro): 5/5 motor strength present throughout Extrem: General: Yes normal to inspection, Yes no calf tenderness and No edema Course Course Course Narrative: 1637-Refusing all interventions. Wants to leave. Walking with steady gait, tolerating PO. Clinically appears sober. Will leave against medical advice. Medications Administered Discontinued Medications Generic Name Dose Route Start Last Admin Trade Name Ramírez PRN Reason Stop Dose Admin Colchicine 0.6 mg 07/19/25 14:37 07/19/25 16:17 Colchicine 0.6 Mg Tablet PO 07/19/25 14:38 Not Given ONCE ONE Indomethacin 25 mg 07/19/25 14:37 07/19/25 16:17 Indomethacin 25 Mg Capsule PO 07/19/25 14:38 Not Given ONCE ONE Medical Decision Making Medical Decision Making MDM Narrative: 34-year-old male with a history of PE on Eliquis, chronic recurrent pericarditis with pericardial effusion status post pericardial window presents the ER with complaints of chronic chest pain which she has had 4 days. There is no associated shortness of breath, fever, cough, leg swelling, leg pain. Of note, patient was seen here yesterday for same and left against medical advice. He has been drinking alcohol more than 20 beers daily. His last drink was just prior to arrival. He tells me that he has a bed [facility] for detox but he needs medical clearance prior to going there. He denies any drug use. No SI/HI. Nursing asked me to see the patient as he wanted to leave. The patient let me perform a limited exam on him and is willing to stay for labs, EKG, CXR and possibly detox after. He says that he drinks to mask his chest pain and the only medication that will helps his pain is hydromorphone. I explained to him that the treatment of pericarditis or myocarditis is not treated with narcotics. I will give him indomethacin, colchicine. Differential Diagnosis Differential Diagnoses: The differential diagnosis associated with the presentation includes Pericarditis, myocarditis less likely ACS, PE, aortic dissection Admission/Observation Consideration of admission/observation: Escalation of care including admission/observation considered Lab Data [facility] Lab Attestation statement: I reviewed the patient's lab results. Independent Interpretation I performed an independent interpretation of an: EKG and Plain X-Ray Interpretation: I independently reviewed the EKG which shows sinus tachycardia with a rate of 106, normal AK, normal QRS, no Radiology Impression Discussion of test interpretation with radiology: I have reviewed the radiologist's reading. Discharge Plan Discharge Clinical Impression: Chest pain Patient Disposition: Left Against Medical Advice Instructions: Chest Pain (ED), Against Medical Advice (ED) Additional Instructions: we did recommend that you stay to have lab work and a chest x-ray done and to assist you with getting a recovery bed but you decided to leave. You are welcome to return at any time if you change your mind. Prescriptions: No Action trazodone 50 mg tablet 50 mg PO BEDTIME citalopram 20 mg tablet 20 mg PO DAILY pantoprazole 40 mg tablet,delayed release (DR/EC) 40 mg PO BID@0630,1630 colchicine 0.6 mg tablet 0.6 mg PO BID Eliquis 5 mg tablet 5 mg PO BID sucralfate 1 gram tablet 1 g PO TIDAC melatonin 5 mg Tablet 5 mg PO BEDTIME PRN (Reason: Sleep) prednisone 5 mg tablet 25 mg PO DAILY Rx Instructions: 25 mg daily for 14 days oxcarbazepine 300 mg tablet 300 mg PO BID gabapentin 300 mg capsule 300 mg PO BID colchicine 0.6 mg capsule 0.6 mg PO DAILY 30 Days Qty: 30 0RF indomethacin 50 mg capsule 50 mg PO BID 7 Days Qty: 14 0RF Rx Instructions: administer with food or milk Eliquis 5 mg tablet 5 mg PO BID 14 Days Qty: 28 0RF Referrals: Physician,Unknown J [Primary Care Provider, Medical] Stand Alone Forms: Against Medical Advice Discharge Date/Time: 07/19/25 16:38 Print Language: Slovak
--- NOTE | 2025-07-19 14:36 | PC.NURSE ---
Belongings removed from room d/t concern for patient having etoh is his bag. Patient left room and walked into the hallway stating that he wants his bags now. Explained to patient that there was a concern for etoh being in his bag in the room with him , patient stating yes there is etoh in the bag and that is why he wants it. Stating he will leave and rip IV out if he is not given his bags now. Security present, patient redirected patient back to room. [employer] OPERATOR into room and spoke with patient. Patient agreeable to having his bags locked up until he is ready for discharge.
[2025-07-19 16:12] VITALS: BP 118/63; PULSE 111; RESP 18; O2SAT 94
--- NOTE | 2025-07-19 16:12 | MHC.EDTECH ---
attempted to redraw labs pt refuses. I dont trust theses ppl
--- NOTE | 2025-07-19 16:15 | PC.NURSE ---
Multiple attempts made to encourage patient to take indomethacin and colchcine, patient stating no he does not trust anyone. Multiple attempts made to draw labs, patient stating no he does not want his blood drawn
--- NOTE | 2025-07-19 16:34 | PC.NURSE ---
Patient declining to sign discharge paperwork, demanding staff carry out his personal belongings. Stating he does not trust any staff. Provided with all personal belongings.
== END 2025-07-19 16:38 | disposition left against medical advice (07) ==
PROVIDERS: Emergency Provider Emergency Medicine
DX: R07.9 Chest pain, unspecified (principal); R00.0 Tachycardia, unspecified; Z53.29 Procedure and treatment not carried out because of patient's decision for other reasons; Z86.711 Personal history of pulmonary embolism; Z79.01 Long term (current) use of anticoagulants; Z87.891 Personal history of nicotine dependence
CPT/HCPCS: 93005; 99283; 99285

== ENCOUNTER → 2025-07-19 13:47 | Outpatient (BNV) | payer OTHER, SELFPAY | PROVIDERS: Emergency Provider Emergency Medicine; Visit Provider Internal Medicine Cardiovascular Disease | DX: R00.0 Tachycardia, unspecified (principal) | CPT/HCPCS: 93010 ==